=== PATIENT | female | born 1980 | race Caucasian/White ===

== ENCOUNTER → 2019-08-22 14:48 | Outpatient (CLI) | payer MEDICAID, SELFPAY ==
[2019-08-22 17:36] LABS: T4 Free Direct 1.18 ng/dL (0.76-1.46); Thyroid Stim Hormone (TSH) 0.21 uIU/mL (0.358-3.74)
[2019-08-25 10:34] LABS: Thyroid Peroxidase AB 33 IU/mL (0-34)
== END ==
PROVIDERS: PCP Family Medicine; Visit Provider Family Medicine
DX: E03.9 Hypothyroidism, unspecified (principal)
CPT/HCPCS: 36415; 84439; 84443; 86376

== ENCOUNTER → 2020-11-26 12:53 | Outpatient (CLI) | payer MEDICAID, SELFPAY ==
[2017-08-15 17:55] VITALS: BMI 29.2
== END ==
PROVIDERS: PCP Family Medicine; Referring Provider Family Medicine; Visit Provider Family Medicine
DX: Z20.828 Contact with and (suspected) exposure to other viral communicable diseases (principal)
CPT/HCPCS: 87635; U0002

== ENCOUNTER 2021-08-05 08:37 | Outpatient (CLI) | payer MEDICAID, SELFPAY | END 2021-08-05 23:59 | disposition short-term general hospital (02) | LOC: LABSPEC 08-06 08:41 | PROVIDERS: PCP Family Medicine; Visit Provider Family Medicine | DX: Z11.52 Encounter for screening for COVID-19 (principal) | CPT/HCPCS: 87635; U0003; U0005 ==

== ENCOUNTER → 2024-11-14 | Outpatient (CLI) | payer MEDICAID, SELFPAY ==
[2024-11-14 17:57] LABS: Absolute Lymphocyte Count 1.72 X10^3/uL (0.83-4.51); Absolute Neutrophil Count 2.6 X10^3/uL (2.0-7.7); Basophil# 0.03 X10^3/uL; Basophil% 0.6 % (0-1); Eosinophil# 0.16 X10^3/uL; Eosinophils% 3.3 % (0-5); Hemoglobin 12.8 g/dL (12.0-15.0); Lymphocyte # 1.72 X10^3/ul (0.83-4.51); Lymphocyte % 35.2 % (19-41); Mean Corp Hgb Conc 33.7 g/dL (32-36); Mean Corpuscular Hgb 28.9 pg (27.0-32.0); Mean Corpuscular Volume 85.8 fL (81-99); Mean Platelet Vol. 11.1 fl (6.2-12.0); Monocyte# 0.38 X10^3/uL; Monocyte% 7.8 % (0-10); NRBC Flagged by Analyzer 0 % (0-5); Neutrophil # 2.59 X10^3/uL (2.7-7.7); Neutrophil % 52.9 % (47-70); Platelet Count 259 K/mm3 (150-450); RBC Distribution Width SD 37.8 fl (35.1-43.9); Red Blood Count 4.43 M/mm3 (4.2-5.4); White Blood Count 4.9 K/mm3 (4.4-11.0)
[2024-11-14 18:31] LABS: ALB/GLOB Ratio 1.5 RATIO (0.9-2.4); AST(SGOT) 30 U/L (<=31); Alanine Aminotransfer ALT/SGPT 26 U/L (<=34); Albumin, Serum 4.5 g/dL (3.5-5.0); Alkaline Phosphatase 96 U/L (35-104); Anion Gap 13 (5-15); BUN 13 mg/dL (4-19); BUN/Creat Ratio 14.9 RATIO (10-20); Carbon Dioxide 24.8 mmol/L (21.0-32.0); Chloride 103 mmol/L (98-108); Creatinine, Serum 0.89 mg/dL (0.70-1.20); EST Glomerular Filtration Rate 82 (>60); Glucose 110 mg/dL (70-99); Potassium 3.7 mmol/L (3.3-5.1); Protein, Total 7.4 g/dL (5.9-8.4); Sodium Level 141 mmol/L (133-145); Total Bilirubin 0.27 mg/dL (0.00-1.30)
[2024-11-16 11:08] LABS: QNTFERON TB Mitogen Value > 10.00 IU/mL (.); QNTFERON TB Nil Value 0.05 IU/mL (.); QNTIFERON TB Positive Criteria Negative (Negative)
== END | disposition home or self-care (01) ==
LOC: BFHLAB 16:04
PROVIDERS: PCP Family Medicine; Visit Provider Family Medicine
DX: R00.0 Tachycardia, unspecified (principal); Z51.81 Encounter for therapeutic drug level monitoring; Z79.899 Other long term (current) drug therapy
CPT/HCPCS: 36415; 80053; 84443; 85025; 86480

== ENCOUNTER → 2024-12-04 | Outpatient (CLI) | payer MEDICAID, SELFPAY ==
--- NOTE | 2024-12-04 14:33 | BI_ITS ---
EXAM: BREAST LIMITED UNILATERAL; DIAG MAMM W/CAD, BILAT; BILAT BRST [place] STAND ALONE N/A; 12/04/2024 CLINICAL HISTORY: 43-year-old female presents with palpable concern in the left breast. Family history of breast cancer in paternal aunt. TECHNIQUE: Bilateral Diagnostic digital breast tomosynthesis with 2D and 3D images. Computer aided detection. Also, left breast ultrasound was performed. COMPARISON: Prior exam(s) dated 04/20/2022, 11/01/2016, 04/20/2016. FINDINGS: MAMMOGRAM: TISSUE DENSITY: The breast tissue is extremely dense which lowers the sensitivity of mammography. The mammogram demonstrates that the patient has dense breasts. Supplemental screening with whole breast ultrasound or MRI may be considered for further evaluation. Right breast: No significant masses, calcifications or other abnormalities are identified. Left breast: There is a triangle skin marker indicating the area of palpable concern in the lower inner left breast. Underlying the skin marker is a high density irregular mass with associated calcifications. The abnormal calcifications and mass involve the entire medial left breast, as well as extending centrally. There is an additional separate smaller group of suspicious fine pleomorphic calcifications in the upper outer left breast at posterior depth, measuring 2.0 x 0.6 x 2.1 cm (AP by TR by CC). ULTRASOUND: Ultrasound performed of the area of palpable concern in the left breast demonstrates an irregular hypoechoic mass with calcifications and flow peripherally extending from 9:00 - 11:00, 5 cm from the nipple measuring 5.5 x 3.5 x 2.0 cm. There is another irregular hypoechoic mass at 9 o'clock 1 cm from the nipple measuring 1.3 x 1.2 x 0.9 cm. This might represents a satellite lesion. There is a smaller irregular hypoechoic mass with calcifications at 1 o'clock, 5 cm from the nipple measuring 1.1 x 0.9 x 0.8 cm. There is a cyst at 1 o'clock 4 cm from the nipple measuring 0.7 x 0.6 x 0.3 cm. There are 2 prominent left axillary lymph nodes with diffuse cortical thickening, the largest measures 2.3 x 1.3 x 0.7 cm with cortical thickness of 0.4 cm. The other abnormal left axillary lymph node measures 1.5 x 0.6 x 0.7 cm. BI/Bilat Brst [place] Stand Alone IMPRESSION: 1. Suspicious irregular left breast mass with calcifications at 9 o'clock-11 o 'clock, 5 cm from the nipple. Recommend tissue sampling with ultrasound-guided core needle biopsy. 2. Suspicious left breast mass at 1 o'clock 5 cm from the nipple. Recommend t issue sampling with ultrasound guided core needle biopsy. 3. Suspicious left breast mass at 9 o'clock 1 cm from the nipple. 4. Suspicious left breast calcifications in the upper-outer left breast at pos terior depth. Recommend tissue sampling with stereotactic guided core needle biopsy. 5. Abnormal left axillary lymph nodes. Recommend tissue sampling of the large r lymph node with ultrasound-guided core needle biopsy. OVERALL FINAL ASSESSMENT: BIRADS 5 HIGHLY SUGGESTIVE OF MALIGNANCY. RECOMMENDATION: Core needle biopsy is recommended. A letter with findings and recommendations will be mailed to the patient. Reading Location: [id number]
== END | disposition home or self-care (01) ==
PROVIDERS: PCP Family Medicine; Referring Provider Family Medicine; Visit Provider Family Medicine
DX: N63.22 Unspecified lump in the left breast, upper inner quadrant (principal)
CPT/HCPCS: 77062; 76642; 77066; G0279

== ENCOUNTER → 2024-12-10 | Outpatient (CLI) | payer MEDICAID, SELFPAY ==
--- NOTE | 2024-12-10 12:00 | BRBX_PTH ---
PATIENT: HOWARD HURD LOC: [facility] U#:[id number] AGE/SX: 43/F ROOM: RE12/10/[address]: Dr. Feliciano Castellon MD : 1980 BED: DIS: 12/10/2024 SPEC #: [id number] RECD: 12/10/24 12:37 STATUS: ISIDRA REQ #: [id number] PAM: 12/10/24 12:[address]: Feliciano Castellon DEPT: SURGICAL PATHOLOGY RECD BY: Roosevelt Vela ENTERED: 12/10/24 14:09 SP TYPE: BREAST BX OTHR DR: Dr. Austin Michael DO Tissues: A - Left breast, NOS B - Axillary lymph node, NOS Procedures: Immunohistochemical Stains Surgery Specimen Level IV IHC Stain ADDITIONAL HEADER OPERATION: Core needle biopsy of left breast mass and left axillary lymph node PRE-OP DIAGNOSIS: Left breast mass TISSUE SUBMITTED: A- Left breast mass 9-11 o'clock, 5cm from the nipple, B- Left axillary lymph node Ischemic Time: 1 minute Fixation Time: 7 hours MICROSCOPIC DIAGNOSIS A. 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 The p40 immunostain shows loss of the myoepithelial layers in the invasive tumor and is present in the areas of DCIS. ESTROGEN RECEPTOR (ER): Positive, strong immunoreactivity in 100% of tumor cells PROGESTERONE RECEPTOR (MI): Positive, strong immunoreactivity in 100% of tumor cells HER2/RYAN IHC: Positive, (Score 3+) KI67 IHC: 40% B. Left axilla, lymph node, biopsy: * Metastatic mammary carcinoma (See note) Note: The pancytokeratin stain is positive supporting the diagnosis. MICROSCOPIC DESCRIPTION Slides are reviewed. All controls show appropriate reactivity. Estrogen receptor (ER) and progesterone receptor (MI) are evaluated by manual quantitative immunohistochemistry on formalin-fixed (for >6 hours and <72 hours if possible), paraffin-embedded tissue, using clone [id number] ([place]) for ER, clone [id number] ([place]) for MI, and polymer detection system on a [place] auto-stainer. For both ER and MI, the percentage of positive tumor cell nuclei is determined; <1% is considered negative, and =1% positive. For both ER and MI, the overall intensity of staining in the tumor is categorized as weak, moderate, or strong. HER2 protein expression is evaluated by manual quantitative immunohistochemistry on formalin-fixed (for >6 hours and <72 hours if possible), paraffin-embedded tissue, using FDA approved clone [id number] (rabbit monoclonal, [place]) on a [place] autostainer, and scored according to ASCO/CAP criteria. Membrane staining of tumor cells is evaluated and graded as follows, as readily appreciated using a low power objective. 0 (negative): no staining, or membrane staining that is incomplete and faint/barely perceptible in <10% of invasive tumor cells; 1+ (negative): incomplete membrane staining that is faint/barely perceptible in >10% of invasive tumor cells; 2+ (equivocal): circumferential membrane staining that is incomplete, and/or weak/moderate in a homogeneous, contiguous population within >10% of invasive tumor cells or complete and circumferential membrane staining that is intense within <10% of invasive tumor cells; 3+ (positive): circumferential, complete, intense membrane staining observed in a homogeneous contiguous population within >10% of invasive tumor cells. If the specimen has been decalcified, exceeds cold-ischemic time, or is outside the recommended range for formalin fixation time, the results should be interpreted with caution. This assay has not been validated for decalcified specimens, cytology specimens, and specimens in which the cold ischemic time/fixation time is unknown. All matched controls reacted appropriately. These tests were developed and their performance characteristics determined by [facility]. They may not have been cleared or approved by the U.S. Food and Drug Administration. The FDA has determined that such clearance or approval is not necessary. The above immunohistochemical/dualISH markers are ordered and reviewed by the Pathologist. GROSS DESCRIPTION A. Received in formalin in a container labeled with the patient's name, date of , and L breast mass 9-11 o'clock 5 cm FN are 3 gutierrez-yellow, cylindrical core biopsies of fibrofatty tissue each measuring 1.5 x 0.2 cm. Submitted in toto in A1. Total formalin fixation time: Between 6 and 72 hours. B. Received in formalin in a container labeled with the patient's name, date of , and L axillary lymph node are multiple gutierrez-pink fragments of soft tissue measuring 1.0 x 1.0 x 0.2 cm in aggregate. Submitted in toto in B1. Total formalin fixation time: Between 6 and 72 hours. [facility] 12-10-2024 CPT:[id number],[id number]
== END | disposition home or self-care (01) ==
LOC: LABSPEC 12:47
PROVIDERS: PCP Family Medicine; Referring Provider Surgery; Visit Provider Surgery
DX: C50.212 Malignant neoplasm of upper-inner quadrant of left female breast (principal); C77.3 Secondary and unspecified malignant neoplasm of axilla and upper limb lymph nodes; Z17.0 Estrogen receptor positive status [ER+]
CPT/HCPCS: 88305; 88341; 88342

== ENCOUNTER 2025-01-08 13:42 | Day surgery (SDC) | payer MEDICAID, SELFPAY ==
--- NOTE | 2025-01-02 17:22 | PAT.ANE_ITS ---
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 When Was Last Pacemaker Check QUESTION #4 FULL TEXT: You/Your Family Experience fever (hyperthermia) with Anesthesia Last Oral Intake Last Oral intake: Last Oral Intake NPO since Meds taken in AM with sips of water? 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 Female Yes 01/02/25 13:24 HX of Motion Sickness Yes 01/02/25 13:24 HX of N/V After Surgery No 01/02/25 13:24 Non-Smoker No 01/02/25 13:24 Duration of Surgery greater No 01/02/25 13:24 than 60 minutes Number of Risk Factors 2 01/02/25 13:24 PONV Score Moderate Risk 01/02/25 13:24 Height & Weight Height & Weight: Anesthesia: Height & Weight Height 5 ft 5 in 12/25/24 16:04 Respiratory Assessment Respiratory Assessment - quarry plant crusher operator: Respiratory Tract Infection Hx - 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 Has anyone observed you stop Yes 01/02/25 13:24 breathing during sleep? STOP Results Positive 01/02/25 13:24 QUESTION #5 FULL TEXT : Do you snore loudly (louder than talking or can be heard through closed doors)? 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 Specify any problems Hx of Preganancy in last 3 N/A 01/02/25 13:24 Months Nurse Filling Out Transfusion NBUCHER 01/02/25 13:24 & Questions: Date: 01/02/25 01/02/25 13:24 Time: 13:26 01/02/25 13:24 Patient unable to answer at this time (ie. 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: /Reproductive Hx- quarry plant crusher operator Hx Now No 01/02/25 13:24 Gestational Age (in weeks): EDC: Hx Hx Para Hx Section SAB No 01/02/25 13:24 PFSH Medical History (Updated 01/02/25 @ 13:34 by Kim Drake) Post-menopausal Wears glasses Cancer Depression Anemia Smoker History of edema Regional lymph node metastasis present Anxiety Breast cancer Home Medications ?Medication ?Instructions ?Recorded ?Last Taken ?Type citalopram 40 mg tablet 40 mg PO QDAY 12/09/24 Unkno wn History Allergy/AdvReac Type Severity Reaction Status Date / Time No Known Allergies Allergy Verified 01/02/25 13:23 Family History (Updated 12/25/24 @ 16:02 by Kristie Rao) Aunt Breast cancer Aunt Breast cancer Aunt Breast cancer Father Brain tumor Uncle Cancer Mother Heart disease Surgical History History of wisdom tooth extraction Social History (Updated 12/25/24 @ 16:03 by Kristie Rao) Smoking Status: Light Smoker (<10/day) Tobacco: How many years used: 20 alcohol intake: never Recommendation Anesthesia Recommendation Anesthesia recommendation: F/U recommended (I do not see the EKG.)
--- NOTE | 2025-01-03 08:32 | PAT.ANE_ITS ---
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 When Was Last Pacemaker Check QUESTION #4 FULL TEXT: You/Your Family Experience fever (hyperthermia) with Anesthesia Last Oral Intake Last Oral intake: Last Oral Intake NPO since Meds taken in AM with sips of water? 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 Has anyone observed you stop Yes 01/02/25 13:24 breathing during sleep? STOP Results Positive 01/02/25 13:24 QUESTION #5 FULL TEXT : Do you snore loudly (louder than talking or can be heard through closed doors)? 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 Specify any problems Hx of Preganancy in last 3 N/A 01/02/25 13:24 Months Nurse Filling Out Transfusion NBUCHER 01/02/25 13:24 & Questions: Date: 01/02/25 01/02/25 13:24 Time: 13:26 01/02/25 13:24 Patient unable to answer at this time (ie. 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 Hx Now No 01/02/25 13:24 Gestational Age (in weeks): EDC: Hx Hx Para Hx Section SAB No 01/02/25 13:24 PFSH Medical History (Updated 01/02/25 @ 13:34 by Kim Drake) Post-menopausal Wears glasses Cancer Depression Anemia Smoker History of edema Regional lymph node metastasis present Anxiety Breast cancer Home Medications ?Medication ?Instructions ?Recorded ?Last Taken ?Type citalopram 40 mg tablet 40 mg PO QDAY 12/09/24 Unkno wn History Allergy/AdvReac Type Severity Reaction Status Date / Time No Known Allergies Allergy Verified 01/02/25 13:23 Family History (Updated 12/25/24 @ 16:02 by Kristie Rao) Aunt Breast cancer Aunt Breast cancer Aunt Breast cancer Father Brain tumor Uncle Cancer Mother Heart disease Surgical History History of wisdom tooth extraction Social History (Updated 12/25/24 @ 16:03 by Kristie Rao) Smoking Status: Light Smoker (<10/day) Tobacco: How many years used: 20 alcohol intake: never Audit: Pertinent Findings Pertinent Findings EKG Perinent findings: 05/2014. Normal sinus rhythm 76 bpm. Poor R wave progression. Anterior RI, age undetermined. Cannot be excluded. Recommendation Anesthesia Recommendation Anesthesia recommendation: OPTIMIZED for anesthesia
[2025-01-08] VITALS (9 sets, daily range): BP systolic 116–157; BP diastolic 81–97; PULSE 83–100; RESP 16–20; TEMP 36.3–36.8; O2SAT 95–100; BMI 24.2
--- NOTE | 2025-01-08 13:52 | PCM.PRE.AN2 ---
ASA Classification* ASA Classification ASA Classification: 2 Assessment & Plan Anesthesia* Anesthesia Assessment Anesthesia Assessment: Discussed sedation and/or anesthesia options, risks, benefits, and alternatives with patient/parents/legal guardian/POA. Questions invited. The patient/parents/legal guardian/POA seems to understand and agrees to proceed with anesthesia plan. Reviewed the physical assessment, medical history, allergy history and patient home medications list prior to surgery/procedure/anesthetic and documented any changes. Performed airway and anesthesia risk assessments. Anesthesia Type Anesthesia Type: MAC Anesthesia Focused Assessment* Airway Assessment Mouth opens: >3 cm Mallampati Score: II Labs Anesthesia Preop lab: CBC WBC 6.1 K/mm3 (4.4-11.0) 12/25/24 17:03 12/25/24 RBC 4.24 M/mm3 (4.2-5.4) 12/25/24 17:03 12/25/24 Hgb 12.3 g/dL (12.0-15.0) 12/25/24 17:03 12/25/24 Hct 36.2 % (37-47) L 12/25/24 17:03 12/25/24 Plt Count 258 K/mm3 (150-450) 12/25/24 17:03 12/25/24 CHEMISTRY Potassium 4.0 mmol/L (3.3-5.1) 12/25/24 17:03 12/25/24 Sodium 141 mmol/L (133-145) 12/25/24 17:03 12/25/24 BUN 14 mg/dL (4-19) 12/25/24 17:03 12/25/24 Creatinine 0.84 mg/dL (0.70-1.20) 12/25/24 17:03 12/25/24 Glucose 95 mg/dL (70-99) 12/25/24 17:03 12/25/24 POC Glucose 89 mg/dL (70-110) 06/16/14 14:36 06/16/14 TSH 1.770 uIU/mL (0.300-4.200) 11/14/24 16:06 11/14/24 COAG PT 12.6 SECONDS (11.7-14.9) 08/15/17 18:00 08/15/17 Urine Test Negative Negative 12/25/24 17:15 12/25/24 Pre-Assessment Diagnosis/Proposed Procedure Planned Operative Procedure(s): (R) Insertion, Vascular Port right possible left Anesthesia History 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 When Was Last Pacemaker Check QUESTION #4 FULL TEXT: You/Your Family Experience fever (hyperthermia) with Anesthesia Last Oral Intake Last Oral intake: Last Oral Intake NPO since Meds taken in AM with sips of water? 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: PONV - kettle operator head Female Yes 01/02/25 13:24 HX of Motion Sickness Yes 01/02/25 13:24 HX of N/V After Surgery No 01/02/25 13:24 Non-Smoker No 01/02/25 13:24 Duration of Surgery greater No 01/02/25 13:24 than 60 minutes Number of Risk Factors 2 01/02/25 13:24 PONV Score Moderate Risk 01/02/25 13:24 Height & Weight Height & Weight: Anesthesia: Height & Weight Height 5 ft 5 in 12/25/24 16:04 Respiratory Assessment Respiratory Assessment - kettle operator head: Respiratory Tract Infection Hx - kettle operator head Hx Respiratory Tract Infection No 01/02/25 13:24 STOP Sleep Apnea STOP Sleep Apnea - kettle operator head: STOP Sleep Apnea - kettle operator head Hx Hypertension No 01/02/25 13:24 Hx Sleep Apnea No 01/02/25 13:24 CPAP BIPAP Do you snore loudly (louder Yes 01/02/25 13:24 than talking or can be heard Do you often feel tired/ Yes 01/02/25 13:24 fatigued/ sleepy during daytime? Has anyone observed you stop Yes 01/02/25 13:24 breathing during sleep? STOP Results Positive 01/02/25 13:24 QUESTION #5 FULL TEXT : Do you snore loudly (louder than talking or can be heard through closed doors)? 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 Specify any problems Hx of Preganancy in last 3 N/A 01/02/25 13:24 Months Nurse Filling Out Transfusion NBUCHER 01/02/25 13:24 & Questions: Date: 01/02/25 01/02/25 13:24 Time: 13:26 01/02/25 13:24 Patient unable to answer at this time (ie. 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: /Reproductive Hx- kettle operator head Hx Now No 01/02/25 13:24 Gestational Age (in weeks): EDC: Hx Hx Para Hx Section SAB No 01/02/25 13:24 Active Medications Active Medications: Current Medications Generic Name Dose Route Start Last Admin Trade Name Freq PRN Reason Stop Dose Admin Lactated Ringer's 1,000 mls @ 15 mls/hr 01/08/25 14:00 IV .Q48H MARITA PFSH Medical History Post-menopausal Wears glasses Cancer Depression Anemia Smoker History of edema Regional lymph node metastasis present Anxiety Breast cancer Home Medications ?Medication ?Instructions ?Recorded ?Last Taken ?Type citalopram 40 mg tablet 40 mg PO QDAY 12/09/24 Unknown History Allergy/AdvReac Type Severity Reaction Status Date / Time No Known Allergies Allergy Verified 01/02/25 13:23 Family History Aunt Breast cancer Aunt Breast cancer Aunt Breast cancer Father Brain tumor Uncle Cancer Mother Heart disease Surgical History History of wisdom tooth extraction Social History Smoking Status: Light Smoker (<10/day) Tobacco: How many years used: 20 alcohol intake: never Review of Systems (Anesthesia) ROS Narrative System reviewed and no additional complaints, except as documented.
[2025-01-08] MEDS: Lactated Ringers 1,000 ML 15 ML IV (14:06)
--- NOTE | 2025-01-08 14:20 | PCM.HP.STD ---
HPI - General HPI Narrative HOWARD HURD, is a 44 F who presents for port placement. The patient was found to have breast cancer with metastasis to the lymph nodes. She is here for port placement for neoadjuvant chemotherapy PFSH Medical History Post-menopausal Wears glasses Cancer Depression Anemia Smoker History of edema Regional lymph node metastasis present Anxiety Breast cancer Home Medications ?Medication ?Instructions ?Recorded ?Last Taken ?Type citalopram 40 mg tablet 40 mg PO QDAY 12/09/24 01/07/25 History Allergy/AdvReac Type Severity Reaction Status Date / Time No Known Allergies Allergy Verified 01/08/25 14:01 Family History Aunt Breast cancer Aunt Breast cancer Aunt Breast cancer Father Brain tumor Uncle Cancer Mother Heart disease Surgical History History of wisdom tooth extraction Social History Smoking Status: Light Smoker (<10/day) Tobacco: How many years used: 20 alcohol intake: never ROS Constitutional Constitutional: Denies anorexia, chills or fatigue Eyes Eyes: Denies blurry vision ENT HEENT: Denies abnormal hearing Cardiovascular Cardiovascular: Denies chest pain Respiratory/Chest Respiratory/Chest: Denies cough or dyspnea Gastrointestinal Gastrointestinal: Denies abdominal pain Genitourinary Genitourinary: Denies change in urinary stream Musculoskeletal Musculoskeletal: Denies abnormal gait Integumentary Integumentary: Denies jaundice or new lesions Neurologic Neurologic: Denies abnormal gait Psychiatric Psychiatric: Denies anxiety Vital Signs Vital Signs Vital Signs: 01/08/25 14:02 01/08/25 14:02 Temperature 98.2 F Temperature Source Temporal Pulse Rate 94 Respiratory Rate 18 Respiratory Pattern Normal Blood Pressure 157/97 H Blood Pressure Mean 117 Blood Pressure Source Monitor Blood Pressure Position Sitting Blood Pressure Location Right Arm Pulse Ox 100 Oxygen Delivery Method Room Air Weight Weight: 145 lb 8.081 oz Body Mass Index (BMI) 24.2 Physical Exam Const oriented x3 and no apparent distress Resp normal respiratory effort Cardio regular rate and regular rhythm GI soft to palpation and non-tender Extremity normal to inspection Assessment & Plan Assessment/Plan (1) Breast cancer: QUALIFIERS: Breast location: overlapping sites of breast Estrogen receptor status: positive Patient sex: female Laterality: left Qualified Code(s): C50.812 - Malignant neoplasm of overlapping sites of left female breast; Z17.0 - Estrogen receptor positive status [ER+] (2) Encounter for insertion of venous access port: PLAN: Plan I discussed right chest port placement with the patient in detail. I discussed the procedure as well as the risks including but not limited to bleeding, infection, pneumothorax, line infection or DVT. Patient understands all the risks and is willing to proceed. Feliciano Castellon MD Pager: [facility] [address] [place] [address], [address] [place] [address] Office:
[2025-01-08] MEDS: Cefazolin 2 GM in 0.9% Normal Saline (100mL Bag) 100 ML IV (14:38)
[2025-01-08] MEDS: Bupivacaine Mpf 0.5% 30 ML VIAL (14:45)
[2025-01-08] MEDS: Lidocaine 1% /Epi 1:100 (20ml) 20 ML Vial (14:45)
--- NOTE | 2025-01-08 15:06 | PCM.OPRPT ---
Operative Report (Standard) Operative Information Date of Procedure: 01/08/25 Pre-Operative Diagnosis: Need for vascular access port for chemotherapy Post-Operative Diagnosis: Same Surgery/Procedure Performed: Ultrasound and fluoroscopy guided right chest port placement with utilization of right IJ ambulance operations supervisor: No Type of Anesthesia: Local MAC RN Documented Start/Stop Times: Operation Date: 01/08/25 14:20 Case Time Into Pre-Op 01/08/25 13:56 Out of Pre-Op 01/08/25 14:25 Anesthesia Start 01/08/25 14:32 Into Room 01/08/25 14:32 Procedure Start 01/08/25 14:44 Procedure End 01/08/25 14:56 Anesthesia End 01/08/25 15:00 Out of Room 01/08/25 15:00 Into Recovery 01/08/25 15:03 Into Phase II Recovery Procedure Start Time: 14:44 Procedure Stop Time: 14:56 Select all DRAINS/GRAFTS/IMPLANTS that apply: Implanted device Implanted device details: 8 [place] PowerPort Estimated Blood Loss: 5 Specimen collected: No Description of surgery: After obtaining informed consent patient was brought back to the operating room MAC anesthesia was induced and the right chest and neck were prepped in normal sterile fashion. Ultrasound was used to evaluate both IJs and the right IJ was selected. Next, using a needle, the right IJ was accessed and a guidewire was passed on into the superior vena cava under fluoroscopy guidance. A small incision was made over the puncture site and the dilator introducer was placed over the guidewire. Next this was capped and the pocket was made for the port. 1% lidocaine with epinephrine was injected in the proposed port site. An incision was made with scalpel. Electrocautery was used to make a pocket under the skin and subcutaneous tissue. Hemostasis was obtained. Next, the catheter was tunneled up to the neck incision site and placed through the introducer. The peel-away introducer was removed and the position of the catheter was confirmed on fluoroscopy. Next, the catheter was trimmed and attached to the port with the locking device. Interrupted 2-0 Vicryl sutures were used to anchor the port to the chest wall and then the port was placed inside the pocket. The pocket was then flushed with saline and the port irrigated with saline. There was good blood return and the port flushed easily. Next, heparin was injected into the port. The skin was closed with subcutaneous interrupted 3-0 Vicryl sutures. A single 3-0 Vicryl sutures placed under the skin at the neck incision site. Steri-Strips were placed as well as op sites. Patient tolerated procedure well, was taken to PACU in stable condition. Chest x-ray will be obtained. Surgical Findings: None Complications Complications: No Admit VTE Documentation VTE Mechan Device Prophylaxis: SCD's
--- NOTE | 2025-01-08 15:06 | PCM.POST.ANE ---
Anesthesia: Postop Eval I Current Vital Signs Temperature: 97.7 F Pulse Rate: 96 Blood Pressure: 140/89 Respiratory Rate: 20 Pulse Ox: 97 Oxygen Delivery Method: Room Air Assessment Airway patent: Yes Spontaneous unlabored respirations: Yes Mental status: Awake nausea: No Vomiting: No Anesthesia Complication: No Fluid Hydration Crystalloid volume administer (ml): 300 Total IV fluid infused: 300 Progress Note Anesthesia document: Postop Eval 1 completed: Yes
--- NOTE | 2025-01-08 15:07 | DCINST_ITS ---
Discharge Instructions Procedure Gallbladder Diet Discharge Diet: Light diet - advance as tolerated Activity Discharge Activity: May Not Drive (for 2-3 days or while taking narcotic pain medications.) and - (Do not drive, work heavy equipment or sign legal documents for 24 hours.) May shower in (days): 1 Lifting Restrictions: 20 lbs for 2 weeks Additional Activity Instructions:: Pain medication may cause nausea. You should typically eat light foods as you take your pain medications. Pain medication may also cause constipation. If this is a problem for you, please discuss with your doctor. Dressing / Incision Call your doctor if your incision/area has: Continuous Slow Oozing, Sudden Increased Bleeding, Increased Pain/ Swelling, Increased Redness and Foul Smelling Discharge Call your doctor if you observe: Fever of 101 or Higher Suture Line Care: Avoid Pulling/Pushing and Avoid Pinching/Bending Remove Dressing in: 2 days Additional Dressing/Incision Instructions:: Leave operative bandaids on for 2 days. When you remove dressing, leave Steri-Strips on until your follow-up appointment, or until the Steri-Strips fall off on their own. Follow Up Care Please Follow Up With: Feliciano Castellon MD When: Please call to schedule 2 week follow up appointment. [phone] Test Results: Test results from this visit will be discussed in further detail at your follow- up appointment, if applicable. Discharge Plan Admission Attending Provider: Feliciano Castellon Primary Care Provider: Austin Michael Instructions Print Language: [place]an Discharge Orders/Prescriptions Prescriptions: No Action citalopram 40 mg tablet 40 mg PO QDAY Referrals / Follow Up: Austin Michael DO [Primary Care Provider] - Disposition Disposition (needs filled in before D/C Order can be placed): Home, Self Care
--- NOTE | 2025-01-08 15:20 | RAD_ITS ---
PROCEDURE: CHEST 1 VIEW 01/08/2025 REASON FOR EXAM: PORT PLACEMENT TECHNIQUE: Frontal view of the chest. COMPARISON: None FINDINGS: Hardware: A right-sided port a catheter has been placed with tip at the junction of the superior vena cava and right atrium. EKG electrodes are seen. Heart: The heart size is normal. Lungs: The lungs are clear. Bones: Degenerative changes are identified within the thoracic spine. Other: RAD/Chest 1 View IMPRESSION: The tip of the right port a catheter is at the junction of the superior vena ca va and right atrium. Reading Location: [facility]
--- NOTE | 2025-01-08 15:30 | POSTOPAN2_ITS ---
Anesthesia Postop Eval I Sum Postop Eval Completion status Anesthesia document: Postop Eval 1 completed: Yes Anesthesia Postop Eval I Summary Anesthesia Postop Eval I Summary: Anesthesia Postop Eval I: Assessment Summary Airway patent Yes 01/08/25 15:08 MAINTENANCE DEPARTMENT [email or web address] Spontaneous unlabored Yes 01/08/25 15:08 MAINTENANCE DEPARTMENT TECHNICIAN.[email or web address] respirations Mental status Awake 01/08/25 15:08 MAINTENANCE DEPARTMENT [email or web address] nausea No 01/08/25 15:08 MAINTENANCE DEPARTMENT TECHNICIAN.[email or web address] Vomiting No 01/08/25 15:08 MAINTENANCE DEPARTMENT TECHNICIAN.[email or web address] Anesthesia Postop Eval I: Fluid Summary Crystalloid volume administer 300 01/08/25 15:08 MAINTENANCE DEPARTMENT TECHNICIAN.JDEF (ml) Colloids volume administered ( ml) Blood Product volume administered (ml) Total IV fluid infused 300 01/08/25 15:08 MAINTENANCE DEPARTMENT TECHNICIAN.[email or web address] Anesthesia Postop Eval I: Summary Notes Anesthesia Complication No 01/08/25 15:08 MAINTENANCE DEPARTMENT TECHNICIAN.[email or web address] Anesthesia Complication Comment: Post-operative progress note Anesthesia: Postop Eval II Evaluation Mental status: Awake Pain Level: 0 nausea: No Vomiting: No
--- NOTE | 2025-01-08 15:30 | PCM.POSTANE2 ---
Anesthesia Postop Eval I Sum Postop Eval Completion status Anesthesia document: Postop Eval 1 completed: Yes Anesthesia Postop Eval I Summary Anesthesia Postop Eval I Summary: Anesthesia Postop Eval I: Assessment Summary Airway patent Yes 01/08/25 15:08 [email or web address] [email or web address] Spontaneous unlabored Yes 01/08/25 15:08 [email or web address] [email or web address] respirations Mental status Awake 01/08/25 15:08 STAFFING [email or web address] nausea No 01/08/25 15:08 STAFFING DIRECTOR.[email or web address] Vomiting No 01/08/25 15:08 STAFFING DIRECTOR.[email or web address] Anesthesia Postop Eval I: Fluid Summary Crystalloid volume administer 300 01/08/25 15:08 STAFFING DIRECTOR.[email or web address] (ml) Colloids volume administered ( ml) Blood Product volume administered (ml) Total IV fluid infused 300 01/08/25 15:08 STAFFING DIRECTOR.[email or web address] Anesthesia Postop Eval I: Summary Notes Anesthesia Complication No 01/08/25 15:08 STAFFING DIRECTOR.[email or web address] Anesthesia Complication Comment: Post-operative progress note Anesthesia: Postop Eval II Evaluation Mental status: Awake Pain Level: 0 nausea: No Vomiting: No
--- NOTE | 2025-01-08 15:53 | PCM.POST.ANE ---
Anesthesia: Postop Eval I Current Vital Signs Temperature: 97.3 F Pulse Rate: 100 Blood Pressure: 116/90 Respiratory Rate: 20 Pulse Ox: 98 Oxygen Delivery Method: Room Air Assessment Airway patent: Yes Spontaneous unlabored respirations: Yes Mental status: Awake nausea: No Vomiting: No Anesthesia Complication: No Fluid Hydration Crystalloid volume administer (ml): 300 Total IV fluid infused: 300 Progress Note Anesthesia document: Postop Eval 1 completed: Yes
== END 2025-01-08 16:13 | disposition home or self-care (01) ==
LOC: SDC 13:45 → AC 13:46
PROVIDERS: PCP Family Medicine; Referring Provider Surgery; Visit Provider Surgery
PROC: (CPT 36561; principal; 2025-01-08 14:05)
DX: Z45.2 Encounter for adjustment and management of vascular access device (principal); C77.9 Secondary and unspecified malignant neoplasm of lymph node, unspecified; C50.812 Malignant neoplasm of overlapping sites of left female breast; Z17.0 Estrogen receptor positive status [ER+]; Z79.899 Other long term (current) drug therapy; F17.290 Nicotine dependence, other tobacco product, uncomplicated
CPT/HCPCS: 36561; 00532; 71045; 77001; C1788

== ENCOUNTER → 2025-01-13 | Outpatient (CLI) | payer MEDICAID, SELFPAY ==
--- OUTSIDE RECORDS SUMMARY | 2025-01-13 06:44 | XMS RPT_ITS | CCD ---
Author Organization [facility] CliniSyme Care Team Providers Care Home Health Care Social Worker Name Role Phone David Michael DO Primary Care Provider FAITH CLEMENTS Attending Unavailable PARADISEDAVID IBRAHIM A Primary Care Unavailable PARADISE, DAVID A Primary Care Unavailable KATHY, FAITH Referring Unavailable PARADISE, DAVID A Primary Care Unavailable PARADISE, DAVID A Primary Care Unavailable FLORIAN VILLA Attending Unavailable Dr. David Michael DO Primary Care Provider Dr. David Michael DO Attending Provider Dr. David Michael DO Referring Provider Ravinder MOSELEY, Dr. Wiggins Attending Provider Ravinder MOSELEY, Dr. Wiggins Referring Provider Huong MOSELEY, Dr. Lares Attending Provider [phone] Huong MOSELEY, Dr. Lares Referring Provider Ravinder MOSELEY, Dr. Wiggins Other Provider David Michael Primary Care Unavailable Feliciano Castellon Attending Unavailable ParadiseDavid Referring Unavailable Paradise, David Primary Care Unavailable Arnaud Borja Attending Unavailable Feliciano Castellon Referring Unavailable Paradise, David Primary Care Unavailable Feliciano Castellon Attending Unavailable Feliciano Castellon Referring Unavailable Paradise, David Primary Care Unavailable Paradise, David Attending Unavailable Paradise, David Primary Care Unavailable Paradise, David Attending Unavailable Paradise, David Referring Unavailable Paradise, David Primary Care Unavailable HumbertoabrFeliciano aquino Attending Unavailable HumbertoabrFeliciano aquino Referring Unavailable Paradise, David Primary Care Unavailable Arnaud Borja Attending Unavailable Arnaud Borja Referring Unavailable Paradise, David Primary Care Unavailable David Michael Attending Unavailable Feliciano Castellon Attending Unavailable Feliciano Castellon Referring Unavailable Feliciano Castellon Consulting Unavailable David Michael Primary Care Unavailable David Michael Primary Care Unavailable Feliciano Castellon Attending Unavailable David Michael Referring Unavailable Medications Current Medications Medication Drug Class(es) Dates Sig (Normalized) Sig (Original) citalopram 40 mg oral tablet (11 sources) Serotonin Reuptake Inhibitor Start: 12-09-2024 take 1 tablet by mouth once daily Citalopram 40 mg tablet Active 40 mg PO daily December 09, 2024 12:00am Start: 02-15-2017 End: 12-09-2024 take 1 tablet by mouth once daily Citalopram (Celexa) 20 MG tablet Discontinued 20 mg PO DAILY August 15, 2017 1:00am December 09, 2024 2:02pm Comment on above: Take 1 tablet by surya th once daily. Completed/Discontinued Medications Medication Drug Class(es) Dates Sig (Normalized) Sig (Original) aspirin 81 mg chewable tablet (6 sources) Platelet Aggregation Inhibitor, Nonsteroidal Anti-inflammatory Drug Start: 08-15-2017 End: 08-17-2017 take 1 tablet by mouth once daily Aspirin 81 MG Tab.Chew Discontinued 81 mg PO DAILY@0800 August 15, 2017 1:00am August 17, 2017 12:58pm Start: 03-31-2017 End: 03-01-2022 take 1 tablet by mouth once daily aspirin, enteric coated (ASPIRIN LOW DOSE) 81 mg EC tablet Take 1 tablet by mouth once daily. 0 03/31/2017 03/01/2022 Discontinued Comment on above: Take 1 tablet by surya th once daily. ibuprofen 600 mg oral tablet (5 sources) Nonsteroidal Anti-inflammatory Drug Start: 8 End: 5 take 1 tablet by mouth every six hours as needed for pain Ibuprofen 600 MG tablet Discontinued 600 mg PO EVERY 6 HOURS as needed for Pain 60 August 17, 2017 1:00am December 09, 2024 2:02pm IRON, FERROUS SULFATE, ORAL (1 source) End: 2 take 27 mg by mouth once daily IRON, FERROUS SULFATE, ORAL Take 27 mg by mouth once daily. 0 03/01/2022 Discontinued Comment on above: Take 27 mg by mouth once daily. Esnfszch-Ee-Ctr-Fe- FA ( VITAMIN) tab (1 source) End: take 1 tablet by mouth once Ktgrzgbt-Ai-Bed-Fe-FA ( VITAMIN) tab Take 1 tablet by mouth. 0 03/01/2022 Discontinued Comment on above: Take 1 tablet by surya th. Problems Active Problems Problem Classification Problem Date Documented Da te Episodic/Chronic Anxiety disorders (2 sources) Anxiety; Translations: [Anxiety disorder, unspecified] 12-25-2024 Chronic Cancer of breast (9 sources) Malignant tumor of breast ; Translations: [Malignant neoplasm of unspecified site of unspecified female breast] Onset: 12-25-2024 12-25-2024 Chronic Cardiac dysrhythmias (1 source) Tachycardia, unspecified; Translations: [Tachycardia, unspecified] Onset: 11-21-2024 Episodic Nonmalignant breast conditions (2 sources) Fibrocystic change of left breast; Translations: [Diffuse cystic mastopathy of left breast] Onset: 04-20-2022 Chronic Nonmalignant breast conditions (15 sources) Pain of breast; Translations: [Mastodynia] Onset: 04-20-2022 Episodic Other aftercare (2 sources) Patient encounter status; Translations: [Encounter for adjustment and management of vascular access device] 01-08-2025 Episodic Other aftercare (2 sources) Encounter for adjustment and management of vascular access device; Translations: [Encounter for adjustment and management of vascular access device] Onset: 01-08-2025 Episodic Other aftercare (1 source) Encounter for therapeutic drug level monitoring; Translations: [Encounter for therapeutic drug level monitoring] Onset: 12-25-2024 Episodic Other aftercare (1 source) Other emt intermediate (current) drug therapy; Translations: [Other prison (current) drug therapy] Onset: 12-25-2024 Episodic Other gastrointestinal disorders (1 source) Malabsorption - iron; Translations: [Intestinal malabsorption, unspecified] Onset: 07-10-2017 07-10-2017 Chronic Other screening for suspected conditions (not mental disorders or infectious disease) (6 sources) Ultrasonography of breast abnormal; Translations: [Other abnormal and inconclusive findings on diagnostic imaging of breast] 12-09-2024 Episodic Other upper respiratory infections (2 sources) Acute maxillary sinusitis, unspecified; Translations: [Acute upper respiratory infection, unspecified] Onset: 08-14-2023 Episodic Residual codes; unclassified (2 sources) Estrogen receptor positive status [ER+]; Translations: [Estrogen receptor positive status [ER+]] Onset: 01-08-2025 Episodic Secondary malignancies (4 sources) Regional lymph node metastasis present ; Translations: [Secondary and unspecified malignant neoplasm of lymph node, unspecified] 12-25-2024 Chronic Secondary malignancies (2 sources) Secondary and unspecified malignant neoplasm of lymph node, unspecified; Translations: [Secondary and unspecified malignant neoplasm of lymph node, unspecified] Onset: 12-25-2024 Chronic Past or Other Problems Problem Classification Problem Date Documented Da te Episodic/Chronic Deficiency and other anemia (1 source) Iron deficiency anemia secondary to inadequate dietary iron intake; Translations: [Other iron deficiency anemias] Onset: 07-10-2017 07-10-2017 Episodic Other nutritional; endocrine; and metabolic disorders (1 source) H/O: thyroid disorder; Translations: [Personal history of other endocrine, nutritional and metabolic disease] Onset: 02-09-2017 02-09-2017 Episodic Screening and history of mental health and substance abuse codes (1 source) H/O: anxiety state; Translations: [Personal history of other mental and behavioral disorders] Onset: 02-09-2017 02-09-2017 Episodic Results Test Name Value Interpretation Reference Range Facility Chest 1 Viewon 01-08-2025 Chest 1 View [facility] Imaging Services [address] [place] [address] [id number] Chest 1 View MR#: [id number] Acct: [id number] Name: HOWARD HALL Rep #: [id number] : 1980 F 44 From: Larry shields MD PCP: Dr. David Michael, DO Status: [facility] Study: Chest 1 View Date of Exam: 01/08/25 Exam# [id number] Ordering Dr: Feliciano Castellon PROCEDURE: CHEST 1 VIEW 01/08/2025 REASON FOR EXAM: PORT PLACEMENT TECHNIQUE: Frontal view of the chest. COMPARISON: None FINDINGS: Hardware: A right-sided port a catheter has been placed with tip at the junction of the superior vena cava and right atrium. EKG electrodes are seen. Heart: The heart size is normal. Lungs: The lungs are clear. Bones: Degenerative changes are identified within the thoracic spine. Other: RAD/Chest 1 View IMPRESSION: The tip of the right port a catheter is at the junction of the superior vena cava and right atrium. Reading Location: [place] [address] CC: Dr. Feliciano Castellon MD; Dr. David Michael DO Cleaner And Presser: Signed Normal [facility] Discharge Instructionon 12-29 Discharge Instruction [facility] Medical Records Department [address] [place] [address] Instructions for Home/Discharge Instructions 01/08/25 1507 MR#: [id number] Acct: [id number] Name: HOWARD HALL Rep #: [id number] : 1980 44 From: Feliciano Castellon MD PCP: Dr. David Michael, Status:REG [facility] Discharge Instructions Procedure Gallbladder Diet Discharge Diet: Light diet - advance as tolerated Activity Discharge Activity: May Not Drive (for 2-3 days or while taking narcotic pain medications.) and - (Do not drive, work heavy equipment or sign legal documents for 24 hours.) May shower in (days): 1 Lifting Restrictions: 20 lbs for 2 weeks Additional Activity Instructions:: Pain medication may cause nausea. You should typically eat light foods as you take your pain medications. Pain medication may also cause constipation. If this is a problem for you, please discuss with your doctor. Dressing / Incision Call your doctor if your incision/area has: Continuous Slow Oozing, Sudden Increased Bleeding, Increased Pain/ Swelling, Increased Redness and Foul Smelling Discharge Call your doctor if you observe: Fever of 101 or Higher Suture Line Care: Avoid Pulling/Pushing and Avoid Pinching/Bending Remove Dressing in: 2 days Additional Dressing/Incision Instructions:: Leave operative bandaids on for 2 days. When you remove dressing, leave Steri-Strips on until your follow-up appointment, or until the Steri-Strips fall off on their own. Follow Up Care Please Follow Up With: Feliciano Castellon MD When: Please call to schedule 2 week follow up appointment. [phone] Test Results: Test results from this visit will be discussed in further detail at your follow-up appointment, if applicable. Discharge Plan Admission Attending Provider: Feliciano Castellon Primary Care Provider: David Michael Instructions Print Language: Bangladeshi Discharge Orders/Prescriptions Prescriptions: No Action citalopram 40 mg tablet 40 mg PO QDAY Referrals / Follow Up: David Michael DO [Primary Care Provider] - Disposition Disposition (needs filled in before D/C Order can be placed): Home, Self Care 01/08/25 1510 Feliciano Castellon MD CC: Dr. David Michael DO Signed Normal [facility] H AND P Exam - Surgicalon H&P Exam - Surgical [facility] Medical Records Department [address] [place] [address] H P Exam - Surgical 01/08/25 1420 MR#: [id number] Acct: [id number] Name: HOWARD HALL Rep #: [id number] : 1980 44 From: Feliciano Castellon MD PCP: Dr. David Michael DO Status:[facility] Location: [place] [address] HPI - General HPI Narrative HOWARD HALL, is a 44 F who presents for port placement. The patient was found to have breast cancer with metastasis to the lymph nodes. She is here for port placement for neoadjuvant chemotherapy PFSH Medical History Post-menopausal Wears glasses Cancer Depression Anemia Smoker History of edema Regional lymph node metastasis present Anxiety Breast cancer Home Medications ???Medication ???Instructions ???Recorded ???Last Taken ???Type citalopram 40 mg tablet 40 mg PO QDAY 12/09/24 01/07/25 Hi story Allergy/AdvReac Type Severity Reaction Status Date / Time No Known Allergies Allergy Verified 01/08/25 14:01 Family History Aunt Breast cancer Aunt Breast cancer Aunt Breast cancer Father Brain tumor Uncle Cancer Mother Heart disease Surgical History History of wisdom tooth extraction Social History Smoking Status: Light Smoker (<10/day) Tobacco: How many years used: 20 alcohol intake: never ROS Constitutional Constitutional: Denies anorexia, chills or fatigue Eyes Eyes: Denies blurry vision ENT HEENT: Denies abnormal hearing Cardiovascular Cardiovascular: Denies chest pain Respiratory/Chest Respiratory/Chest: Denies cough or dyspnea Gastrointestinal Gastrointestinal: Denies abdominal pain Genitourinary Genitourinary: Denies change in urinary stream Musculoskeletal Musculoskeletal: Denies abnormal gait Integumentary Integumentary: Denies jaundice or new lesions Neurologic Neurologic: Denies abnormal gait Psychiatric Psychiatric: Denies anxiety Vital Signs Vital Signs Vital Signs: 01/08/25 14:02 01/08/25 14:02 Temperature 98.2 F Temperature Source Temporal Pulse Rate 94 Respiratory Rate 18 Respiratory Pattern Normal Blood Pressure 157/97 H Blood Pressure Mean 117 Blood Pressure Source Monitor Blood Pressure Position Sitting Blood Pressure Location Right Arm Pulse Ox 100 Oxygen Delivery Method Room Air Weight Weight: 145 lb 8.081 oz Body Mass Index (BMI) 24.2 Physical Exam Const oriented x3 and no apparent distress Resp normal respiratory effort Cardio regular rate and regular rhythm GI soft to palpation and non-tender Extremity normal to inspection Assessment Plan Assessment/Plan (1) Breast cancer: QUALIFIERS: Breast location: overlapping sites of breast Estrogen receptor status: positive Patient sex: female Laterality: left Qualified Code(s): C50.812 - Malignant neoplasm of overlapping sites of left female breast; Z17.0 - Estrogen receptor positive status [ER+] (2) Encounter for insertion of venous access port: PLAN: Plan I discussed right chest port placement with the patient in detail. I discussed the procedure as well as the risks including but not limited to bleeding, infection, pneumothorax, line infection or DVT. Patient understands all the risks and is willing to proceed. Feliciano Castellon MD Pager: [facility] [address] [place] [address], [address] [place] [address] Office: 01/08/25 [facility] Cosigner Signature (if applicable): CC: Dr. Feliciano Castellon MD; Dr. David Michael, DO Signed [facility] MR/POSTOP.YAHIR 01-08-2025 MR/POSTOP.[facility] Medical Records Department [address] [facility] [place] [place] [address] Anesthesia Postop Eval I 01/08/25 1553 MR#: [id number] Acct: [id number] Name: HOWARD HALL Rep #: [id number] : 1980 44 From: Rebecca Mathews CRNA PCP: Dr. David Michael, DO Status:REG [facility] Y Race: C Location: [place] [address] Anesthesia: Postop Eval I Current Vital Signs Temperature: 97.3 F Pulse Rate: 100 Blood Pressure: 116/90 Respiratory Rate: 20 Pulse Ox: 98 Oxygen Delivery Method: Room Air Assessment Airway patent: Yes Spontaneous unlabored respirations: Yes Mental status: Awake nausea: No Vomiting: No Anesthesia Complication: No Fluid Hydration Crystalloid volume administer (ml): 300 Total IV fluid infused: 300 Progress Note Anesthesia document: Postop Eval 1 completed: Yes 01/08/25 1554 Date Rebecca Mathews CRNA Cosigner Signature: Date CC: Signed [facility] MR/POSTOP.[facility] Medical Records Department [address] [facility] [place] [address] Anesthesia Postop Eval I 01/08/25 1506 MR#: [id number] Acct: [id number] Name: HOWARD HALL Rep #: [id number] : 1980 44 From: Rebecca Mathews CRNA PCP: Dr. David Michael, DO Status:REG [facility] Y Race: C Location: [place] [address] Anesthesia: Postop Eval I Current Vital Signs Temperature: 97.7 F Pulse Rate: 96 Blood Pressure: 140/89 Respiratory Rate: 20 Pulse Ox: 97 Oxygen Delivery Method: Room Air Assessment Airway patent: Yes Spontaneous unlabored respirations: Yes Mental status: Awake nausea: No Vomiting: No Anesthesia Complication: No Fluid Hydration Crystalloid volume administer (ml): 300 Total IV fluid infused: 300 Progress Note Anesthesia document: Postop Eval 1 completed: Yes 01/08/25 1508 Date Rebecca DeForeest POLISH MAKER Cosigner Signature: Date CC: Signed Normal [facility] MR/[id number] 01-08-2025 [facility] Medical Records Department [address] [place] [address] Anesthesia Postop Eval II 01/08/25 1530 MR#: [id number] Acct: [id number] Name: HOWARD HALL Falguni Rep #: [id number] : 1980 44 From: Clyde Starks MD PCP: Dr. David Michael, DO Status:REG [facility] Y Race: C Location: [place] [address] Anesthesia Postop Eval I Sum Postop Eval Completion status Anesthesia document: Postop Eval 1 completed: Yes Anesthesia Postop Eval I Summary Anesthesia Postop Eval I Summary: Anesthesia Postop Eval I: Assessment Summary Airway patent Yes 01/08/25 15:08 POLISH [email or web address] Spontaneous unlabored Yes 01/08/25 15:08 POLISH [email or web address].JDEF respirations Mental status Awake 01/08/25 15:08 POLISH [email or web address] nausea No 01/08/25 15:08 POLISH MAKER.JDEF Vomiting No 01/08/25 15:08 POLISH [email or web address].JDEF Anesthesia Postop Eval I: Fluid Summary Crystalloid volume administer 300 01/08/25 15:08 POLISH [email or web address].JDEF (ml) Colloids volume administered ( ml) Blood Product volume administered (ml) Total IV fluid infused 300 01/08/25 15:08 POLISH [email or web address].JDEF Anesthesia Postop Eval I: Summary Notes Anesthesia Complication No 01/08/25 15:08 POLISH [email or web address].JDEF Anesthesia Complication Comment: Post-operative progress note Anesthesia: Postop Eval II Evaluation Mental status: Awake Pain Level: 0 nausea: No Vomiting: No 01/08/25 1530 Date Clyde Stacy Signature: Date CC: Signed Normal [facility] Operative Reporton 5 Operative Report [facility] Medical Records Department [address] [place] [address] Operative Report 01/08/25 1506 MR#: [id number] Acct: [id number] Name: HOWARD HALL Falguni Rep #: [id number] : 1980 44 From: Feliciano Castellon MD PCP: Dr. David Michael, DO Status:[facility] Location: [place] [address] Operative Report (Standard) Operative Information Date of Procedure: 01/08/25 Pre-Operative Diagnosis: Need for vascular access port for chemotherapy Post-Operative Diagnosis: Same Surgery/Procedure Performed: Ultrasound and fluoroscopy guided right chest port placement with utilization of right IJ director of workforce development: No Type of Anesthesia: Local MAC RN Documented Start/Stop Times: Operation Date: 01/08/25 14:20 Case Time Into Pre-Op 01/08/25 13:56 Out of Pre-Op 01/08/25 14:25 Anesthesia Start 01/08/25 14:32 Into Room 01/08/25 14:32 Procedure Start 01/08/25 14:44 Procedure End 01/08/25 14:56 Anesthesia End 01/08/25 15:00 Out of Room 01/08/25 15:00 Into Recovery 01/08/25 15:03 Into Phase II Recovery Procedure Start Time: 14:44 Procedure Stop Time: 14:56 Select all DRAINS/GRAFTS/IMPLANTS that apply: Implanted device Implanted device details: 8 Syriac PowerPort Estimated Blood Loss: 5 Specimen collected: No Description of surgery: After obtaining informed consent patient was brought back to the operating room MAC anesthesia was induced and the right chest and neck were prepped in normal sterile fashion. Ultrasound was used to evaluate both IJs and the right IJ was selected. Next, using a needle, the right IJ was accessed and a guidewire was passed on into the superior vena cava under fluoroscopy guidance. A small incision was made over the puncture site and the dilator introducer was placed over the guidewire. Next this was capped and the pocket was made for the port. 1% lidocaine with epinephrine was injected in the proposed port site. An incision was made with scalpel. Electrocautery was used to make a pocket under the skin and subcutaneous tissue. Hemostasis was obtained. Next, the catheter was tunneled up to the neck incision site and placed through the introducer. The peel-away introducer was removed and the position of the catheter was confirmed on fluoroscopy. Next, the catheter was trimmed and attached to the port with the locking device. Interrupted 2-0 Vicryl sutures were used to anchor the port to the chest wall and then the port was placed inside the pocket. The pocket was then flushed with saline and the port irrigated with saline. There was good blood return and the port flushed easily. Next, heparin was injected into the port. The skin was closed with subcutaneous interrupted 3-0 Vicryl sutures. A single 3-0 Vicryl sutures placed under the skin at the neck incision site. Steri-Strips were placed as well as op sites. Patient tolerated procedure well, was taken to PACU in stable condition. Chest x-ray will be obtained. Surgical Findings: None Complications Complications: No Admit VTE Documentation VTE Mechan Device Prophylaxis: SCD's 01/08/25 1507 Cosigner Signature (if applicable): CC: Dr. Feliciano Castellon MD; Dr. David Michael DO Signed Normal [facility] MR/PAT.Elsa 01-03-2025 MR/PAT.[facility] Medical Records Department [address] [place] [address] PAT - Anesthesia 01/03/25 0832 MR#: [id number] Acct: [id number] Name: HOWARD HALL Rep #: [id number] : 1980 44 From: Clyde Starks MD PCP: Dr. 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 When Was Last Pacemaker Check QUESTION #4 FULL TEXT: You/Your Family Experience fever (hyperthermia) with Anesthesia Last Oral Intake Last Oral intake: Last Oral Intake NPO since Meds taken in AM with sips of water? 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: PONV - snack bar cashier Female Yes 01/02/25 13:24 HX of Motion Sickness Yes 01/02/25 13:24 HX of N/V After Surgery No 01/02/25 13:24 Non-Smoker No 01/02/25 13:24 Duration of Surgery greater No 01/02/25 13:24 than 60 minutes Number of Risk Factors 2 01/02/25 13:24 PONV Score Moderate Risk 01/02/25 13:24 Height Weight Height Weight: Anesthesia: Height Weight Height 5 ft 5 in 12/25/24 16:04 Respiratory Assessment Respiratory Assessment - snack bar cashier: Respiratory Tract Infection Hx - snack bar cashier Hx Respiratory Tract Infection No 01/02/25 13:24 STOP Sleep Apnea STOP Sleep Apnea - snack bar cashier: STOP Sleep Apnea - snack bar cashier Hx Hypertension No 01/02/25 13:24 Hx Sleep Apnea No 01/02/25 13:24 CPAP BIPAP Do you snore loudly (louder Yes 01/02/25 13:24 than talking or can be heard Do you often feel tired/ Yes 01/02/25 13:24 fatigued/ sleepy during daytime? Has anyone observed you stop Yes 01/02/25 13:24 breathing during sleep? STOP Results Positive 01/02/25 13:24 QUESTION #5 FULL TEXT : Do you snore loudly (louder than talking or can be heard through closed doors)? 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 Specify any problems Hx of Preganancy in last 3 N/A 01/02/25 13:24 Months Nurse Filling Out Transfusion NBUCHER 01/02/25 13:24 Questions: Date: 01/02/25 01/02/25 13:24 Time: 13:26 01/02/25 13:24 Patient unable to answer at this time (ie. 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 History - snack bar cashier: /Reproductive Hx- snack bar cashier Hx Now No 01/02/25 13:24 Gestational Age (in weeks): EDC: Hx Hx Para Hx Section SAB No 01/02/25 13:24 PFSH Medical History (Updated 01/02/25 @ 13:34 by Kim Drake) Post-menopausal Wears glasses Cancer Depression Anemia Smoker History of edema Regional lymph node metastasis present Anxiety Breast cancer Home Medications ???Medication ???Instructions ???Recorded ???Last Taken ???Type citalopram 40 mg tablet 40 mg PO QDAY 12/09/24 Unknown His tory Allergy/AdvReac Type Severity Reaction Status Date / Time No Known Allergies Allergy Verified 01/02/25 13:23 Family History (Updated 12/25/24 @ 16:02 by Kristie Rao) Aunt Breast cancer Aunt Breast cancer Aunt Breast cancer Father Brain tumor Uncle Cancer Mother Heart disease Surgical History History of wisdom tooth extraction Social History (Updated 12/25/24 @ 16:03 by Kristie Rao) Smoking Status: Light Smoker (<10/day) Tobacco: How many years used: 20 alcoh (more content not included)... Normal [facility] MR/PAT.[facility] 01-02-2025 MR/PAT.[facility] Medical Records Department [address] [place] [address] PAT - Anesthesia 01/02/25 1722 MR#: [id number] Acct: [id number] Name: HOWARD HALL Rep #: [id number] : 1980 44 From: Stuart Rashid MD PCP: Dr. 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 When Was Last Pacemaker Check QUESTION #4 FULL TEXT: You/Your Family Experience fever (hyperthermia) with Anesthesia Last Oral Intake Last Oral intake: Last Oral Intake NPO since Meds taken in AM with sips of water? 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: PONV - snack bar cashier Female Yes 01/02/25 13:24 HX of Motion Sickness Yes 01/02/25 13:24 HX of N/V After Surgery No 01/02/25 13:24 Non-Smoker No 01/02/25 13:24 Duration of Surgery greater No 01/02/25 13:24 than 60 minutes Number of Risk Factors 2 01/02/25 13:24 PONV Score Moderate Risk 01/02/25 13:24 Height Weight Height Weight: Anesthesia: Height Weight Height 5 ft 5 in 12/25/24 16:04 Respiratory Assessment Respiratory Assessment - snack bar cashier: Respiratory Tract Infection Hx - snack bar cashier Hx Respiratory Tract Infection No 01/02/25 13:24 STOP Sleep Apnea STOP Sleep Apnea - snack bar cashier: STOP Sleep Apnea - snack bar cashier Hx Hypertension No 01/02/25 13:24 Hx Sleep Apnea No 01/02/25 13:24 CPAP BIPAP Do you snore loudly (louder Yes 01/02/25 13:24 than talking or can be heard Do you often feel tired/ Yes 01/02/25 13:24 fatigued/ sleepy during daytime? Has anyone observed you stop Yes 01/02/25 13:24 breathing during sleep? STOP Results Positive 01/02/25 13:24 QUESTION #5 FULL TEXT : Do you snore loudly (louder than talking or can be heard through closed doors)? 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 Specify any problems Hx of Preganancy in last 3 N/A 01/02/25 13:24 Months Nurse Filling Out Transfusion NBUCHER 01/02/25 13:24 Questions: Date: 01/02/25 01/02/25 13:24 Time: 13:26 01/02/25 13:24 Patient unable to answer at this time (ie. 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 History - snack bar cashier: /Reproductive Hx- snack bar cashier Hx Now No 01/02/25 13:24 Gestational Age (in weeks): EDC: Hx Hx Para Hx Section SAB No 01/02/25 13:24 PFSH Medical History (Updated 01/02/25 @ 13:34 by Kim Drake) Post-menopausal Wears glasses Cancer Depression Anemia Smoker History of edema Regional lymph node metastasis present Anxiety Breast cancer Home Medications ???Medication ???Instructions ???Recorded ???Last Taken ???Type citalopram 40 mg tablet 40 mg PO QDAY 12/09/24 Unknown His tory Allergy/AdvReac Type Severity Reaction Status Date / Time No Known Allergies Allergy Verified 01/02/25 13:23 Family History (Updated 12/25/24 @ 16:02 by Kristie Rao) Aunt Breast cancer Aunt Breast cancer Aunt Breast cancer Father Brain tumor Uncle Cancer Mother Heart disease Surgical History History of wisdom tooth extraction Social History (Updated 12/25/24 @ 16:03 by Kristie Rao) Smoking Status: Light Smoker (<10/day) Tobacco: How many years used: 20 (more content not included)... Normal [facility] CA 15-3on 12-27-2024 CA 15-3 74.7 U/mL Abnormal 0.0-25.0 [facility] Comment on above: Result Comment: [employer] Electrochemiluminescence Immunoassay (ECLIA) Values obtained with different assay methods or kits cannot be used interchangeably. Results cannot be interpreted as absolute evidence of the presence or absence of malignant disease. Performed at: [place] [id number] [employer] Counselor: Mendez Parmar PhD, Phone: [phone] Performed By: #### L 3100.5040, L100.0100, L500.4050, L400.7600, L3100.5055, L3100.5030 ####[facility] [address] [place], [address] CA 27.29on 12-27-2024 CA 27.29 103.0 U/mL Abnormal 0.0-38.6 [facility] Comment on above: Result Comment: [facility] Back&aur Immunochemiluminometric Methodology (ICMA) Values obtained with different assay methods or kits cannot be used interchangeably. Results cannot be interpreted as absolute evidence of the presence or absence of malignant disease. Performed By: #### L 3100.5040, L100.0100, L500.4050, L400.7600, L3100.5055, L3100.5030 ####[facility] [address] [place], [address] Absolute lymphocyte countOrd ered By: Arnaud Borja on 12-25-2024 Lymphocytes Auto (Unsp spec) [#/Vol] 2.39 10*3/uL 0.83-4.51 [facility] Absolute neutrophil countOrd ered By: [facility] on 12-25-2024 Neutrophils (Bld) [#/Vol] 3.0 10*3/uL 2.0-7.7 [facility] Anion gap in Serum or Plasma Ordered By: Arnaud Borja on 12-25-2024 Anion gap [Moles/Vol] 11 mmol/L 5-15 [facility] Automated lymphocyte count a s percentage of total leukocytesOrdered By: Arnaud Borja on 12-25-2024 Lymphocytes/100 WBC Auto (Unsp spec) 39.3 % 19-41 [facility] BUN/creatinine ratioOrdered By: [facility] on 12-25-2024 Urea nitrogen/Creatinine [Mass ratio] 16.4 mg/mg 10-20 [facility] Basophil percentageOrdered B y: Arnaud Borja on 12-25-2024 Basophils/100 WBC (Bld) 0.7 % 0-1 [facility] Bilirubin, totalOrdered By: Arnaud Borja on 12-25-2024 Bilirubin [Mass/Vol] 0.28 mg/dL 0.00-1.30 [facility] CA 15-3Ordered By: Arnaud alvarado on 12-25-2024 CA 15-3 74.7 U/mL High 0.0-25.0 [facility] Comment on above: [employer] El ectrochemiluminescence Immunoassay(ECLIA)Values obtained with different assay methods or kits cannotbe used interchangeably. Results cannot be interpreted asabsolute evidence of the presence or absence of malignantdisease.Performed at: [facility], [place] [id number] Director: Mendez Parmar PhD, Phone: [phone] CA 27.29Ordered By: Arnaud Borja on 12-25-2024 CA 27.29 103.0 U/mL High 0.0-38.6 [facility] Comment on above: [employer] Immu nochemiluminometric Methodology (ICMA)Values obtained with different assay methods or kits cannotbe used interchangeably. Results cannot be interpreted asabsolute evidence of the presence or absence of malignantdisease. CBC W/Diff, Automatedon 11-29 Absolute Lymph 2.39 X10 3/uL Normal 0.83-4.51 [facility] Comment on above: Performed By: #### L 3100.5040, L100.0100, L500.4050, L400.7600, L3100.5055, L3100.5030 ####[facility] [address] [place], [address] Absolute Neut 3.0 X10 3/uL Normal 2.0-7.7 [facility] Comment on above: Performed By: #### L 3100.5040, L100.0100, L500.4050, L400.7600, L3100.5055, L3100.5030 ####[facility] [address] [place], [address] Basophils/100 WBC (Bld) 0.7 % Normal 0-1 [facility] Comment on above: Performed By: #### L 3100.5040, L100.0100, L500.4050, L400.7600, L3100.5055, L3100.5030 ####[facility] [address] [place], [address] Eosinophils/100 WBC (Bld) 3.5 % Normal 0-5 [facility] Comment on above: Performed By: #### L 3100.5040, L100.0100, L500.4050, L400.7600, L3100.5055, L3100.5030 ####[facility] [address] [place], [address] Erythrocyte distribution width (RBC) [Ratio] 12.4 % Normal 11.6-14.6 [facility] Comment on above: Performed By: #### L 3100.5040, L100.0100, L500.4050, L400.7600, L3100.5055, L3100.5030 ####[facility] [address] [place], [address] Hematocrit (Bld) [Volume fraction] 36.2 % Low 37-47 [facility] Comment on above: Performed By: #### L 3100.5040, L100.0100, L500.4050, L400.7600, L3100.5055, L3100.5030 ####[facility] [address] [place], [address] Hemoglobin (Bld) [Mass/Vol] 12.3 g/dL Normal 12.0-15.0 [facility] Comment on above: Performed By: #### L 3100.5040, L100.0100, L500.4050, L400.7600, L3100.5055, L3100.5030 ####[facility] [address] [place], [address] IG% 0.200 Normal 0.0-0.9 [facility] Comment on above: Result Comment: IG% - Immature Granulocytes (promyelocytes, myelocytes and metamyelocytes) > 1% indicates that a LEFT SHIFT is Present. Performed By: #### L 3100.5040, L100.0100, L500.4050, L400.7600, L3100.5055, L3100.5030 ####[facility] [address] [place], [address] Lymphocytes/100 WBC (Bld) 39.3 % Normal 19-41 [facility] Comment on above: Performed By: #### L 3100.5040, L100.0100, L500.4050, L400.7600, L3100.5055, L3100.5030 ####[facility] [address] [place], [address] MCH (RBC) [Entitic mass] 29.0 pg Normal 27.0-32.0 [facility] Comment on above: Performed By: #### L 3100.5040, L100.0100, L500.4050, L400.7600, L3100.5055, L3100.5030 ####[facility] [address] [place], [address] MCHC (RBC) [Mass/Vol] 34.0 g/dL Normal 32-36 [facility] Comment on above: Performed By: #### L 3100.5040, L100.0100, L500.4050, L400.7600, L3100.5055, L3100.5030 ####[facility] [address] [place], [address] MCV (RBC) [Entitic vol] 85.4 fL Normal 81-99 [facility] Comment on above: Performed By: #### L 3100.5040, L100.0100, L500.4050, L400.7600, L3100.5055, L3100.5030 ####[facility] [address] [place], [address] Monocytes/100 WBC (Bld) 7.9 % Normal 0-10 [facility] Comment on above: Performed By: #### L 3100.5040, L100.0100, L500.4050, L400.7600, L3100.5055, L3100.5030 ####[facility] [address] [place], [address] Neutrophils/100 WBC (Bld) 48.4 % Normal 47-70 [facility] Comment on above: Performed By: #### L 3100.5040, L100.0100, L500.4050, L400.7600, L3100.5055, L3100.5030 ####[facility] [address] [place], [address] Nucleated RBC (Bld) [#/Vol] 0 10*3/uL Normal 0-5 [facility] Comment on above: Performed By: #### L 3100.5040, L100.0100, L500.4050, L400.7600, L3100.5055, L3100.5030 ####[facility] [address] [place], [address] Platelet mean volume (Bld) [Entitic vol] 11.0 fL Normal 6.2-12.0 [facility] Comment on above: Performed By: #### L 3100.5040, L100.0100, L500.4050, L400.7600, L3100.5055, L3100.5030 ####[facility] [address] [place], [address] Platelets (Bld) [#/Vol] 258 10*3/uL Normal 150-450 [facility] Comment on above: Performed By: #### L 3100.5040, L100.0100, L500.4050, L400.7600, L3100.5055, L3100.5030 ####[facility] [address] [place], [address] RBC (Bld) [#/Vol] 4.24 10*6/uL Normal 4.2-5.4 [facility] Comment on above: Performed By: #### L 3100.5040, L100.0100, L500.4050, L400.7600, L3100.5055, L3100.5030 ####[facility] [address] [place], [address] RDW SD 38.7 fl Normal 35.1-43.9 [facility] Comment on above: Performed By: #### L 3100.5040, L100.0100, L500.4050, L400.7600, L3100.5055, L3100.5030 ####[facility] [address] [place], [address] WBC (Bld) [#/Vol] 6.1 10*3/uL Normal 4.4-11.0 [facility] Comment on above: Performed By: #### L 3100.5040, L100.0100, L500.4050, L400.7600, L3100.5055, L3100.5030 ####[facility] [address] [place], [address] Carbon dioxide, total [Moles /volume] in Central venous bloodOrdered By: Arnaud Borja on 12-25-2024 CO2 [Moles/Vol] 25.7 mmol/L 21.0-32.0 [facility] Chloride assayOrdered By: Jluis Borja on 12-25-2024 Chloride [Moles/Vol] 105 mmol/L 98-108 [facility] Comprehensive Metabolic Prof ilon 12-25-2024 Albumin [Mass/Vol] 4.6 g/dL Normal 3.5-5.0 [facility] Comment on above: Performed By: #### L 3100.5040, L100.0100, L500.4050, L400.7600, L3100.5055, L3100.5030 ####[facility] [address] [place], [address] Albumin/Globulin [Mass ratio] 1.5 {ratio} Normal 0.9-2.4 [facility] Comment on above: Performed By: #### L 3100.5040, L100.0100, L500.4050, L400.7600, L3100.5055, L3100.5030 ####[facility] [address] [place], [address] ALK PHOS 98 U/L Normal 35-104 [facility] Comment on above: Performed By: #### L 3100.5040, L100.0100, L500.4050, L400.7600, L3100.5055, L3100.5030 ####[facility] [address] [place], [address] ALT [Catalytic activity/Vol] 24 U/L Normal <=34 [facility] Comment on above: Performed By: #### L 3100.5040, L100.0100, L500.4050, L400.7600, L3100.5055, L3100.5030 ####[facility] [address] [place], [address] AST [Catalytic activity/Vol] 27 U/L Normal <=31 [facility] Comment on above: Performed By: #### L 3100.5040, L100.0100, L500.4050, L400.7600, L3100.5055, L3100.5030 ####[facility] [address] [place], [place], [id number] Bilirubin [Mass/Vol] 0.28 mg/dL Normal 0.00-1.30 [facility] Comment on above: Performed By: #### L 3100.5040, L100.0100, L500.4050, L400.7600, L3100.5055, L3100.5030 ####[facility] [address] [place], [address] BUN/CRE 16.4 RATIO Normal 10-20 [facility] Comment on above: Performed By: #### L 3100.5040, L100.0100, L500.4050, L400.7600, L3100.5055, L3100.5030 ####[facility] [address] [place], [address] Calcium [Mass/Vol] 9.7 mg/dL Normal 7.6-11.0 [facility] Comment on above: Performed By: #### L 3100.5040, L100.0100, L500.4050, L400.7600, L3100.5055, L3100.5030 ####[facility] [address] [place], [address] Chloride [Moles/Vol] 105 mmol/L Normal 98-108 [facility] Comment on above: Performed By: #### L 3100.5040, L100.0100, L500.4050, L400.7600, L3100.5055, L3100.5030 ####[facility] [address] [place], [address] CO2 [Moles/Vol] 25.7 mmol/L Normal 21.0-32.0 [facility] Comment on above: Performed By: #### L 3100.5040, L100.0100, L500.4050, L400.7600, L3100.5055, L3100.5030 ####[facility] [address] [place], [address] Creatinine [Mass/Vol] 0.84 mg/dL Normal 0.70-1.20 [facility] Comment on above: Performed By: #### L 3100.5040, L100.0100, L500.4050, L400.7600, L3100.5055, L3100.5030 ####[facility] [address] [place], [address] GAP 11 Normal 5-15 [facility] Comment on above: Performed By: #### L 3100.5040, L100.0100, L500.4050, L400.7600, L3100.5055, L3100.5030 ####[facility] [address] [place], [address] GFR/1.73 sq M.predicted among non-blacks MDRD (S/P/Bld) [Vol rate/Area] 88 mL/min/{1.73_m2} Normal >60 [facility] Comment on above: Result Comment: mL/m in/1.73m2 CKD-EPI Creatinine Equation (2020) Performed By: #### L 3100.5040, L100.0100, L500.4050, L400.7600, L3100.5055, L3100.5030 ####[facility] [address] [place], [address] Globulin (S) [Mass/Vol] 3.0 g/dL Normal 2.2-4.2 [facility] Comment on above: Performed By: #### L 3100.5040, L100.0100, L500.4050, L400.7600, L3100.5055, L3100.5030 ####[facility] [address] [place], [address] Glucose [Mass/Vol] 95 mg/dL Normal 70-99 [facility] Comment on above: Performed By: #### L 3100.5040, L100.0100, L500.4050, L400.7600, L3100.5055, L3100.5030 ####[facility] [address] [place], [address] Potassium [Moles/Vol] 4.0 mmol/L Normal 3.3-5.1 [facility] Comment on above: Performed By: #### L 3100.5040, L100.0100, L500.4050, L400.7600, L3100.5055, L3100.5030 ####[facility] [address] [place], [address] Sodium [Moles/Vol] 141 mmol/L Normal 133-145 [facility] Comment on above: Performed By: #### L 3100.5040, L100.0100, L500.4050, L400.7600, L3100.5055, L3100.5030 ####[facility] [address] [place], [place], [id number] T PROT 7.5 g/dL Normal 5.9-8.4 [facility] Comment on above: Performed By: #### L 3100.5040, L100.0100, L500.4050, L400.7600, L3100.5055, L3100.5030 ####[facility] [address] [place], [place], [id number] Urea nitrogen [Mass/Vol] 14 mg/dL Normal 4-19 [facility] Comment on above: Performed By: #### L 3100.5040, L100.0100, L500.4050, L400.7600, L3100.5055, L3100.5030 ####[facility] [address] [place], [place], [phone] Eosinophil percentageOrdered By: Arnaud Borja on 12-25-2024 Eosinophils/100 WBC (Bld) 3.5 % 0-5 [facility] Erythrocyte distribution wid th ratioOrdered By: Arnaud Borja on 12-25-2024 Erythrocyte distribution width (RBC) [Ratio] 12.4 % 11.6-14.6 [facility] Erythrocyte distribution wid th standard deviationOrdered By: [facility] Huong on 12-25-2024 Erythrocyte distribution width (RBC) [Ratio] 38.7 fl 35.1-43.9 [facility] FSH and LHon 12-25-2024 FSH 89.2 mIU/mL Normal [facility] Comment on above: Result Comment: FEMA LE: Follicular: 1.4 - 18.1 mIU/mL Midcycle: 3.4 - 33.4 mIU/mL Luteal: 1.5 - 9.1 mIU/mL Post Menopause: 23.0 - 116.3 mIU/mL MALE: 1.4 - 18.1 mIU/mL Performed By: #### L 3100.5040, L100.0100, L500.4050, L400.7600, L3100.5055, L3100.5030 ####[facility] [address] [place], [place], [phone] LH 60.9 mIU/mL Normal [facility] Comment on above: Result Comment: FEMA LE: Follicular: 1.9-12.5 mIU/mL Midcycle: 8.7-76.3 mIU/mL Luteal: 0.5-16.9 mIU/mL Post Menopause: 15.9-54.0 mIU/mL MALE: 20-70 Years: 1.5-9.3 mIU/mL >70 Years: 3.1-34.6 mIU/mL Performed By: #### L 3100.5040, L100.0100, L500.4050, L400.7600, L3100.5055, L3100.5030 ####[facility] [address] [place], [place], [phone] Glomerular filtration rate ( GFR) estimation/1.73 sq m using serum, plasma, or whole bOrdered By: Arnaud Borja on 12-25-2024 GFR/1.73 sq M.predicted among non-blacks MDRD (S/P/Bld) [Vol rate/Area] 88 mL/min/{1.73_m2} >60 [facility] Comment on above: mL/min/1.73m2 CKD-EP I Creatinine Equation (2020) Hematocrit Auto (Bld) [Volum e fraction]Ordered By: Arnaud Borja on 12-25-2024 Hematocrit (Bld) [Volume fraction] 36.2 % Low 37-47 [facility] Hemoglobin measurementOrdere d By: Arnadu Borja on 12-25-2024 Hemoglobin (Bld) [Mass/Vol] 12.3 g/dL 12.0-15.0 [facility] Immature granulocytes/100 WB C Auto (Bld)Ordered By: Arnaud Borja on 12-25-2024 Immature granulocytes/100 WBC (Bld) 0.200 % 0.0-0.9 [facility] Comment on above: IG% - Immature Granu locytes (promyelocytes, myelocytes and metamyelocytes) > 1% indicates that a LEFT SHIFT is Present. Laboratory - Chemistry and C hemistry - challengeOrdered By: Arnaud Borja on 12-25-2024 AST [Catalytic activity/Vol] 27 U/L <32 [facility] MCV (mean corpuscular volume ) determinationOrdered By: Arnaud Borja on 12-25-2024 MCV (RBC) [Entitic vol] 85.4 fL 81-99 [facility] Mean corpuscular hemoglobin (MCH) determinationOrdered By: Arnaud Borja on 12-25-2024 MCH (RBC) [Entitic mass] 29.0 pg 27.0-32.0 [facility] Mean corpuscular hemoglobin concentration (MCHC) determinationOrdered By: Arnaud Borja on 12-25-2024 MCHC (RBC) [Mass/Vol] 34.0 g/dL 32-36 [facility] Mean platelet volume determi nationOrdered By: Arnaud Borja on 12-25-2024 Platelet mean volume (Bld) [Entitic vol] 11.0 fL 6.2-12.0 [facility] Monocyte percentageOrdered B y: Arnaud Borja on 12-25-2024 Monocytes/100 WBC (Bld) 7.9 % 0-10 [facility] Neutrophil percentageOrdered By: Arnaud Borja on 12-25-2024 Neutrophils/100 WBC (Bld) 48.4 % 47-70 [facility] Nucleated red blood cell per centageOrdered By: Arnaud Borja on 12-25-2024 Nucleated RBC/100 WBC (Bld) [Ratio] 0 % 0-5 [facility] Oncology Visit Reporton 11-29 Oncology Visit Report [facility] [address] [place] [address] OFFICE VISIT Date of Service: 12/25/24 1555 MR#: [id number] Acct: [id number] Name: VICKEYHOWARD Rep #: [id number] : 1980 From: Arnaud Borja MD Age/Sex: 44/F Location: [facility] Status: Signed HPI Subjective Date of Service 05/28/25 Chief Complaint Breast cancer History of Present Illness 44-year-old female menopausal status to be determined (patient last menstrual period was about 1 year earlier and was experiencing some hot flashes) who presented with an enlarging painless mass in the left breast first noted August 2024. Has no first-degree relatives with breast cancer. She has a remote history of a biopsy from the contralateral right breast benign. December 04, 2024 diagnostic mammogram: FINDINGS: MAMMOGRAM: TISSUE DENSITY: The breast tissue is extremely dense which lowers the sensitivity of mammography. The mammogram demonstrates that the patient has dense breasts. Supplemental screening with whole breast ultrasound or MRI may be considered for further evaluation. Right breast: No significant masses, calcifications or other abnormalities are identified. Left breast: There is a triangle skin marker indicating the area of palpable concern in the lower inner left breast. Underlying the skin marker is a high density irregular mass with associated calcifications. The abnormal calcifications and mass involve the entire medial left breast, as well as extending centrally. There is an additional separate smaller group of suspicious fine pleomorphic calcifications in the upper outer left breast at posterior depth, measuring 2.0 x 0.6 x 2.1 cm (AP by TR by CC). ULTRASOUND: Ultrasound performed of the area of palpable concern in the left breast demonstrates an irregular hypoechoic mass with calcifications and flow peripherally extending from 9:00 - 11:00, 5 cm from the nipple measuring 5.5 x 3.5 x 2.0 cm. There is another irregular hypoechoic mass at 9 o'clock 1 cm from the nipple measuring 1.3 x 1.2 x 0.9 cm. This might represents a satellite lesion. There is a smaller irregular hypoechoic mass with calcifications at 1 o'clock, 5 cm from the nipple measuring 1.1 x 0.9 x 0.8 cm. There is a cyst at 1 o'clock 4 cm from the nipple measuring 0.7 x 0.6 x 0.3 cm. There are 2 prominent left axillary lymph nodes with diffuse cortical thickening, the largest measures 2.3 x 1.3 x 0.7 cm with cortical thickness of 0.4 cm. The other abnormal left axillary lymph node measures 1.5 x 0.6 x 0.7 cm. IMPRESSION: 1. Suspicious irregular left breast mass with calcifications at 9 o'clock-11 o'clock, 5 cm from the nipple. Recommend tissue sampling with ultrasound-guided core needle biopsy. 2. Suspicious left breast mass at 1 o'clock 5 cm from the nipple. Recommend tissue sampling with ultrasound guided core needle biopsy. 3. Suspicious left breast mass at 9 o'clock 1 cm from the nipple. 4. Suspicious left breast calcifications in the upper-outer left breast at posterior depth. Recommend tissue sampling with stereotactic guided core needle biopsy. 5. Abnormal left axillary lymph nodes. Recommend tissue sampling of the larger lymph node with ultrasound-guided core needle biopsy. OVERALL FINAL ASSESSMENT: BIRADS 5 HIGHLY SUGGESTIVE OF MALIGNANCY. December 10, 2024: A. 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 The p40 immunostain shows loss of the myoepithelial layers in the invasive tumor and is present in the areas of DCIS. ESTROGEN RECEPTOR (ER): Positive, strong immunoreactivity in 100% of tumor cells PROGESTERONE RECEPTOR (IN): Positive, strong immunoreactivity in 100% of tumor cells HER2/RYAN IHC: Positive, (Score 3+) KI67 IHC: 40% B. Left axilla, lymph node, biopsy: * Metastatic mammary carcinoma (See note) Note: The pancytokeratin stain is positive supporting the diagnosis. [facility] Medical History (Updated 12/25/24 @ 16:[address] Arnaud Borja MD) Regional lymph node metastasis present Anxiety Breast cancer Family History (Updated 12/25/24 @ 16:02 by Kristie Rao) Aunt Breast cancer Aunt Breast cancer Aunt Breast cancer Father Brain tumor Uncle Cancer Mother Heart disease Social History (Updated 12/25/24 @ 16:03 by Kristie Rao) Smoking Status: Light Smoker (<10/day) Tobacco: How many years used: 20 alcohol intake: never ROS Constitutional Constitutional: Reports systems reviewed and no addt'l complaints, except as documented; Denies fatigue, fever(s) or weight (more content not included)... Normal [facility] Platelet countOrdered By: Jluis Borja on 12-25-2024 Platelets (Bld) [#/Vol] 258 10*3/uL 150-450 [facility] Potassium measurement (mass/ volume)Ordered By: Arnaud Borja on 12-25-2024 Potassium (Unsp spec) [Mass/Vol] 4.0 mmol/L 3.3-5.1 [facility] ,Urineon 12-25-2024 Beta HCG ( test) Ql (U) Negative Normal [facility] Comment on above: Result Comment: [id number] Very dilute urine specimens, as indicated by a low specific gravity, may not contain patient portal representative levels of hCG. If is still suspected, a first morning urine specimen should be collected 48 hours later and tested. Performed By: #### L 3100.5040, L100.0100, L500.4050, L400.7600, L3100.5055, L3100.5030 #### [facility] [address] [place], [address] RBC Auto (Bld) [#/Vol]Ordere d By: Arnaud Borja on 12-25-2024 RBC (Bld) [#/Vol] 4.24 10*6/uL 4.2-5.4 [facility] Serum creatinine measurement (mass/volume)Ordered By: Arnaud Borja on 12-25-2024 Creatinine [Mass/Vol] 0.84 mg/dL 0.70-1.20 [facility] Serum globulin measurementOr dered By: Arnaud Borja on 12-25-2024 Globulin (S) [Mass/Vol] 3.0 g/dL 2.2-4.2 [facility] Serum glucose measurement (m ass/volume)Ordered By: Arnaud Borja on 12-25-2024 Glucose [Mass/Vol] 95 mg/dL 70-99 [facility] Serum or plasma alanine rainey otransferase (ALT) measurementOrdered By: Arnaud Borja on 12-25-2024 ALT [Catalytic activity/Vol] 24 U/L <35 [facility] Serum or plasma albumin ceasar urement (mass/volume)Ordered By: Arnaud Borja on 12-25-2024 Albumin [Mass/Vol] 4.6 g/dL 3.5-5.0 [facility] Serum or plasma albumin/glob ulin mass ratioOrdered By: Arnaud Borja on 12-25-2024 Albumin/Globulin [Mass ratio] 1.5 {ratio} 0.9-2.4 [facility] Serum or plasma alkaline dasia sphatase measurementOrdered By: Arnaud Borja on 12-25-2024 ALP [Catalytic activity/Vol] 98 U/L 35-104 [facility] Serum or plasma calcium ceasar urement (mass/volume)Ordered By: rAnaud Borja on 12-25-2024 Calcium [Mass/Vol] 9.7 mg/dL 7.6-11.0 [facility] Serum or plasma urea nitroge n measurement (mass/volume)Ordered By: Arnaud Borja on 12-25-2024 Urea nitrogen [Mass/Vol] 14 mg/dL 4-19 [facility] Sodium levelOrdered By: Meir Borja on 12-25-2024 Sodium [Moles/Vol] 141 mmol/L 133-145 [facility] Total proteinOrdered By: Charanjit Borja on 12-25-2024 Protein [Mass/Vol] 7.5 g/dL 5.9-8.4 [facility] Urine testOrdered By: Arnaud Borja on 12-25-2024 HCG ( test) Ql (U) Negative [facility] Comment on above: [id number] dilute ur ine specimens, as indicated by a low specificgravity, may not contain patient portal representative levels of hCG. If is still suspected, a first morning urinespecimen should be collected 48 hours later and tested. White blood cell (WBC) count Ordered By: Arnaud Borja on 12-25-2024 WBC (Bld) [#/Vol] 6.1 10*3/uL 4.4-11.0 [facility] Surgical pathology reportOrd ered By: Rain Bruce on 12-11-2024 Surgical pathology study [facility] Immunohistochemical Stainson 12-10-2024 Immunohistochemical Stains Patient Age/Sex Location Account Attending Physician HOWARD HALL 43/F [facility] [id number] Dr. Feliciano Castellon MD Specimen: [id number] Received: 12/10/24 Status: ISIDRA Neal Num: [id number] Spec Type: BREAST BX Subm Dr: Dr. Feliciano Castellon MD HEADER OPERATION: Core needle biopsy of left breast mass and left axillary lymph node PRE-OP DIAGNOSIS: Left breast mass TISSUE SUBMITTED: A- Left breast mass 9-11 o'clock, 5cm from the nipple, B- Left axillary lymph node Ischemic Time: 1 minute Fixation Time: 7 hours MICROSCOPIC DIAGNOSIS A. 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 The p40 immunostain shows loss of the myoepithelial layers in the invasive tumor and is present in the areas of DCIS. ESTROGEN RECEPTOR (ER): Positive, strong immunoreactivity in 100% of tumor cells PROGESTERONE RECEPTOR (IN): Positive, strong immunoreactivity in 100% of tumor cells HER2/RYAN IHC: Positive, (Score 3+) KI67 IHC: 40% B. Left axilla, lymph node, biopsy: * Metastatic mammary carcinoma (See note) Note: The pancytokeratin stain is positive supporting the diagnosis. MICROSCOPIC DESCRIPTION Slides are reviewed. All controls show appropriate reactivity. Estrogen receptor (ER) and progesterone receptor (IN) are evaluated by manual quantitative immunohistochemistry on formalin-fixed (for >6 hours and <72 hours if possible), paraffin-embedded tissue, using clone SP1 ([place]) for ER, clone IN 1E2 ([place]) for IN, and polymer detection system on a [place] auto-stainer. For both ER and IN, the percentage of positive tumor cell nuclei is determined; <1% is considered negative, and =1% positive. For both ER and IN, the overall intensity of staining in the tumor is categorized as weak, moderate, or strong. HER2 protein expression is evaluated by manual quantitative immunohistochemistry on formalin-fixed (for >6 hours and <72 hours if possible), paraffin-embedded tissue, using FDA approved clone [id number] (rabbit monoclonal, [place]) on a [place] autostainer, and scored according to ASCO/CAP criteria. Membrane staining of tumor cells is evaluated and graded as follows, as readily appreciated using a low power objective. 0 (negative): no staining, or Patient Age/Sex Location Account Attending Physician HOWARD HALL 43/F [facility] [id number] Dr. Feliciano Castellon MD membrane staining that is incomplete and faint/barely perceptible in <10% of invasive tumor cells; 1+ (negative): incomplete membrane staining that is faint/barely perceptible in >10% of invasive tumor cells; 2+ (equivocal): circumferential membrane staining that is incomplete, and/or weak/moderate in a homogeneous, contiguous population within >10% of invasive tumor cells or complete and circumferential membrane staining that is intense within <10% of invasive tumor cells; 3+ (positive): circumferential, complete, intense membrane staining observed in a homogeneous contiguous population within >10% of invasive tumor cells. If the specimen has been decalcified, exceeds cold-ischemic time, or is outside the recommended range for formalin fixation time, the results should be interpreted with caution. This assay has not been validated for decalcified specimens, cytology specimens, and specimens in which the cold ischemic time/fixation time is unknown. All matched controls reacted appropriately. These tests were developed and their performance characteristics determined by [facility]. They may not have been cleared or approved by the U.S. Food and Drug Administration. The FDA has determined that such clearance or approval is not necessary. The above immunohistochemical/dualIS H markers are ordered and reviewed by the Pathologist. GROSS DESCRIPTION A. Received in formalin in a container labeled with the patient's name, date of , and L breast mass 9-11 o'clock 5 cm FN are 3 gutierrez-yellow, cylindrical core biopsies of fibro (more content not included)... Normal [facility] Comment on above: Performed By: #### [facility] ####[facility] [id number] [place], [address] Surgery Visit Reporton 12-10 Surgery Visit Report [facility] [address] [place] [address] OFFICE VISIT Date of Service: 12/10/24 MR#: [id number] Acct: [id number] Name: HOWARD HALL Rep #: [id number] : 1980 Provider: Dr. Feliciano miles MD Age/Sex: 43/F Location: [facility] Status: Signed Intake Intake Visit Reasons: BREAST BIOPSY Chief Complaint: Breast BIOSPY Allergies No Known Allergies Allergy (Verified 12/10/24 12:07) Medications ???Medication ???Instructions ???Recorded ???Confirmed ???Type citalopram 40 mg tablet 40 mg PO QDAY 12/09/24 12/10/24 Hi story PFSH Medical History Abnormal ultrasound of breast Abnormal mammogram Left breast mass Family History Aunt Breast cancer Aunt Breast cancer Aunt Breast cancer Father Brain tumor Uncle Cancer Social History Smoking Status: Light Smoker (<10/day) HPI HPI HPI: Patient is a 43-year-old female here for breast biopsy. This was discussed with her yesterday. ROS General General: No weight change, appetite, fatigue, colon cancer, breast cancer or weakness HEENT HEENT: No difficulty swallowing, eye injury, eye surgery, swollen glands or hoarseness Endo Endocrine: No thyroid disease, diabetes mellitus, thyroid cancer, Hair loss, heat intolerance or cold intolerance Skin Skin: No rash or changing moles Breast Breast: Yes left breast lump, abnormal mammogram and abnormal US; No right breast lump, nipple discharge, breast pain or breast enlargement Musc Musculoskeletal: No back problems, arthritis, rheumatoid arthritis, gout or joint pain Cardio Cardiovascular: No murmur, pacemaker, heart disease, atrial fibrillation, high blood pressure, heart attack, heart stent, palpitations, shortness of breath with exertion or chest pain Psych Psychiatric: Yes depression; No anxiety or hearing voices Resp Respiratory: No shortness of breath, No sleep apnea, No cough, No COPD, No asthma, No emphysema and No wheezing Gastro Gastrointestinal: No abdominal pain, No nausea or vomiting, No diarrhea, No constipation, No blood in stool, No acid reflux, No hemorrhoids, No ulcers, No gallbladder problem and No black,tarry stools Uche Hematologic: No blood thinners, No blood disorders, No bleeding, No anemia and No blood clots Neuro Neurologic: No numbness, No tingling and No weakness Office Procedures Biopsy Provider Documentation The patient's left breast was prepped and draped in usual sterile fashion. The mass was localized in the medial portion of the breast. Local anesthetic was injected into the skin and underlying tissue. A small lynn was made in the skin and then the biopsy needle was placed into the mass under ultrasound guidance several times for biopsies and a clip was placed into the mass. Steri-Strip and bandage were placed over the incision and patient tolerated the procedure well. Next the left axilla was prepped and draped and ultrasound was used to localize the largest lymph node. Local anesthetic was injected and then a small lynn was made with a scalpel. A 14-gauge biopsy needle was placed into the lymph node several times and then a clip was placed into the lymph node. Steri-Strip and bandage were placed over the incision and patient tolerated the procedure well. Alert Kalani Yes Biopsy Breast Biopsy: 27594 US Guidance Lymphnode Biopsy: [id number] Lymphnode Procedure Time Out Time Out Informed consent given: Yes Consent signed: Yes Time out checklist: patient, procedure, site marked/identified, positioning of patient, supplies available, allergies confirmed and team agrees on procedure Time out staff in room: Yes Time out verified: Yes Time out date: 12/10/24 Time out time: 12:15 Assessment and Plan Assessment and Plan (1) Left breast mass: Status: Acute Qualifiers: Breast mass location: upper inner quadrant Qualified Code(s): N63.22 - Unspecified lump in the left breast, upper inner quadrant Plan: Patient has a large left breast mass as well as enlarged left axillary lymph node. Biopsy of each was performed today. I informed the patient that this is likely cancerous as it is a BI-RADS 5 and it is very large and firm. I will call her with results once I get them. Feliciano Castellon MD Pager: [facility] [address] [place] [address], [address] [place] [address] Office: Orders: Orders Biopsy 12/10/24 N63.22 - Unspecified lump in the left breast, upper inner quadrant Coding Level of Care Code Attention Accounting Systems Manager Diagnoses Mass of upper inner quadrant of left napoleon (more content not included)... Normal [facility] Surgery Visit Reporton 12-09 Surgery Visit Report [facility] [address] [place] [address]. [address] [place] [address] OFFICE VISIT Date of Service: 12/09/24 MR#: [id number] Acct: [id number] Name: HOWARD HALL Rep #: [id number] : 1980 Provider: Dr. Feliciano miles MD Age/Sex: 43/F Location: [facility] Status: Signed Intake Vital Signs 08/15/17 21:48 12/09/24 14:01 Height 5 ft 5.5 in 5 ft 5.5 in Weight: 147 lb BMI 24.0 BP 169/92 H Blood Pressure Location Rt brachial Position Sitting Respiration 18 Pulse 93 Pulse Source Monitor Temp 97.5 F L Temp Source Temporal Pulse Oximetry (%) 98 Oxygen Delivery Method room air Intake Visit Reasons: BIRADS 5 Chief Complaint: BIRADS 5 Is patient in pain?: No Allergies No Known Allergies Allergy (Verified 12/09/24 14:02) [facility] Medical History (Updated 12/09/24 @ 14:[address] Feliciano Castellon MD) Abnormal ultrasound of breast Abnormal mammogram Left breast mass Family History (Updated 12/09/24 @ 14:01 by Hollie Solorio LPN) Aunt Breast cancer Aunt Breast cancer Aunt Breast cancer Father Brain tumor Uncle Cancer Social History Smoking Status: Light Smoker (<10/day) HPI HPI HPI: Patient is a 43-year-old female here for breast mass on the left. Patient notes that has been there for several months and it is growing. She also has inverted nipple on the left. She has breast cancer in her family history and 2 aunts and other types of cancer in her family history. The patient does not have any pain in the area. ROS General General: No weight change, appetite, fatigue, colon cancer, breast cancer or weakness HEENT HEENT: No difficulty swallowing, eye injury, eye surgery, swollen glands or hoarseness Endo Endocrine: No thyroid disease, diabetes mellitus, thyroid cancer, Hair loss, heat intolerance or cold intolerance Skin Skin: No rash or changing moles Breast Breast: Yes left breast lump, abnormal mammogram and abnormal US; No right breast lump, nipple discharge, breast pain or breast enlargement Musc Musculoskeletal: No back problems, arthritis, rheumatoid arthritis, gout or joint pain Cardio Cardiovascular: No murmur, pacemaker, heart disease, atrial fibrillation, high blood pressure, heart attack, heart stent, palpitations, shortness of breath with exertion or chest pain Psych Psychiatric: Yes depression; No anxiety or hearing voices Resp Respiratory: No shortness of breath, No sleep apnea, No cough, No COPD, No asthma, No emphysema and No wheezing Gastro Gastrointestinal: No abdominal pain, No nausea or vomiting, No diarrhea, No constipation, No blood in stool, No acid reflux, No hemorrhoids, No ulcers, No gallbladder problem and No black,tarry stools Uche Hematologic: No blood thinners, No blood disorders, No bleeding, No anemia and No blood clots Neuro Neurologic: No numbness, No tingling and No weakness Exam Const General: cooperative Orientation: alert and oriented x3 HENMT Head: normal to inspection Neck Neck: normal visual inspection and full ROM Chest Chest palpation inspection: normal inspection of the chest Breast Palpation: Yes breast mass lrb: Left Resp Effort Inspection: normal respiratory effort Auscultation: clear to auscultation bilaterally Cardio Rate: regular rate Rhythm: regular rhythm GI Inspection: non-distended Palpation: soft and nontender Skin General: no rashes or lesions noted Neuro General: patient alert and patient oriented x3 Extrem General: full ROM Psych Appearance: grossly normal Mental Status: mental status grossly normal Assessment and Plan Assessment and Plan (1) Left breast mass: Status: Acute Qualifiers: Breast mass location: upper inner quadrant Qualified Code(s): N63.22 - Unspecified lump in the left breast, upper inner quadrant Plan: The patient has a large left breast mass. It measures about 6 cm. I discussed with her that this is a BI-RADS 5 lesion and she also has enlarged axillary lymph nodes. I am highly concerned that this is malignant. I will perform her biopsy tomorrow. We will biopsy the large mass as well as the smaller mass and the axillary lymph node. There is another area that has calcifications that I cannot see an ultrasound. I also discussed that if this comes back is malignant she would need genetic testing first and she would be interested in reconstructive surgery. I discussed biopsy with the patient in detail. I discussed the risks including but not limited to bleeding, infection, need for further biopsy. Feliciano Castellon MD Pager: [facility] [address] [place] [address], [address] [place] [address] Office: Medications: Discontinued ibuprofen (more content not included)... Normal [facility] Breast imaging reportOrdered By: Elsy Sarah on 12-05-2024 Study report [facility] Imaging Services [address] [place], [place] [id number] DIAG MAMM W/CAD, BILAT MR#: [id number] Acct: [id number] Name: HOWARD HALL Falguni Rep #: [id number] : 1980 F 43 From: Kamilah Sarah MD PCP: Dr. David Michael DO Status: [facility] Study:DIAG MAMM W/CAD, BILAT Date of Exam: 12/04/24 Exam# [id number] Ordering Dr: David Michael DO EXAM: BREAST LIMITED UNILATERAL; DIAG MAMM W/CAD, BILAT; BILAT BRST MIKA STAND ALONE N/A; 12/04/2024 CLINICAL HISTORY: 43-year-old female presents with palpable concern in the left breast. Family history of breast cancer in paternal aunt. TECHNIQUE: Bilateral Diagnostic digital breast tomosynthesis with 2D and 3D images. Computer aided detection. Also, left breast ultrasound was performed. COMPARISON: Prior exam(s) dated 04/20/2022, 11/01/2016, 04/20/2016. FINDINGS: MAMMOGRAM: TISSUE DENSITY: The breast tissue is extremely dense which lowers the sensitivity of mammography. The mammogram demonstrates that the patient has dense breasts. Supplemental screening with whole breast ultrasound or MRI may be considered for further evaluation. Right breast: No significant masses, calcifications or other abnormalities are identified. Left breast: There is a triangle skin marker indicating the area of palpable concern in the lower inner left breast. Underlying the skin marker is a high density irregular mass with associated calcifications. The abnormal calcifications and mass involve the entire medial left breast, as well as extending centrally. There is an additional separate smaller group of suspicious fine pleomorphic calcifications in the upper outer left breast at posterior depth, measuring 2.0 x 0.6 x 2.1 cm (AP by TR by CC). ULTRASOUND: Ultrasound performed of the area of palpable concern in the left breast demonstrates an irregular hypoechoic mass with calcifications and flow peripherally extending from 9:00 - 11:00, 5 cm from the nipple measuring 5.5 x 3.5 x 2.0 cm. There is another irregular hypoechoic mass at 9 o'clock 1 cm from the nipple measuring 1.3 x 1.2 x 0.9 cm. This might represents a satellite lesion. There is a smaller irregular hypoechoic mass with calcifications at 1 o'clock, 5cm from the nipple measuring 1.1 x 0.9 x 0.8 cm. There is a cyst at 1 o'clock 4 cm from the nipple measuring 0.7 x 0.6 x 0.3 cm. There are 2 prominent left axillary lymph nodes with diffuse cortical thickening, the largest measures 2.3 x 1.3 x 0.7 cm with cortical thickness of 0.4 cm. The other abnormal left axillary lymph node measures 1.5 x 0.6 x 0.7 cm. BI/DIAG MAMM W/CAD, BILAT IMPRESSION: 1. Suspicious irregular left breast mass with calcifications at 9 o'clock-11 o'clock, 5 cm from the nipple. Recommend tissue sampling with ultrasound-guided core needle biopsy. 2. Suspicious left breast mass at 1 o'clock 5 cm from the nipple. Recommend tissue sampling with ultrasound guided core needle biopsy. 3. Suspicious left breast mass at 9 o'clock 1 cm from the nipple. 4. Suspicious left breast calcifications in the upper-outer left breast at posterior depth. Recommend tissue sampling with stereotactic guided core needle biopsy. 5. Abnormal left axillary lymph nodes. Recommend tissue sampling of the largerlymph node with ultrasound-guided core needle biopsy. OVERALL FINAL ASSESSMENT: BIRADS 5 HIGHLY SUGGESTIVE OF MALIGNANCY. RECOMMENDATION: Core needle biopsy is recommended. A letter with findings and recommendations will be mailed to the patient. Reading Location: [facility] CC: Dr. David Michael DO ~ Cleaner And Presser: Signed [facility] Study report [facility] Imaging Services [address] [facility] [place] [address] Bil[address] Mika Stand Alone MR#: [id number] Acct: [id number] Name: HOWARD HALL Falguni Rep #: [id number] : 1980 F 43 From: Kamilah Sarah MD PCP: Dr. David Michael DO Status: REG CLI Study:Bilat Brst Mika Stand Alone Date of Exa m: 12/04/24 Exam# [id number] Ordering Dr: David Michael DO EXAM: BREAST LIMITED UNILATERAL; DIAG MAMM W/CAD, BILAT; BILAT BRST MIKA STAND ALONE N/A; 12/04/2024 CLINICAL HISTORY: 43-year-old female presents with palpable concern in the left breast. Family history of breast cancer in paternal aunt. TECHNIQUE: Bilateral Diagnostic digital breast tomosynthesis with 2D and 3D images. Computer aided detection. Also, left breast ultrasound was performed. COMPARISON: Prior exam(s) dated 04/20/2022, 11/01/2016, 04/20/2016. FINDINGS: MAMMOGRAM: TISSUE DENSITY: The breast tissue is extremely dense which lowers the sensitivity of mammography. The mammogram demonstrates that the patient has dense breasts. Supplemental screening with whole breast ultrasound or MRI may be considered for further evaluation. Right breast: No significant masses, calcifications or other abnormalities are identified. Left breast: There is a triangle skin marker indicating the area of palpable concern in the lower inner left breast. Underlying the skin marker is a high density irregular mass with associated calcifications. The abnormal calcifications and mass involve the entire medial left breast, as well as extending centrally. There is an additional separate smaller group of suspicious fine pleomorphic calcifications in the upper outer left breast at posterior depth, measuring 2.0 x 0.6 x 2.1 cm (AP by TR by CC). ULTRASOUND: Ultrasound performed of the area of palpable concern in the left breast demonstrates an irregular hypoechoic mass with calcifications and flow peripherally extending from 9:00 - 11:00, 5 cm from the nipple measuring 5.5 x 3.5 x 2.0 cm. There is another irregular hypoechoic mass at 9 o'clock 1 cm from the nipple measuring 1.3 x 1.2 x 0.9 cm. This might represents a satellite lesion. There is a smaller irregular hypoechoic mass with calcifications at 1 o'clock, 5cm from the nipple measuring 1.1 x 0.9 x 0.8 cm. There is a cyst at 1 o'clock 4 cm from the nipple measuring 0.7 x 0.6 x 0.3 cm. There are 2 prominent left axillary lymph nodes with diffuse cortical thickening, the largest measures 2.3 x 1.3 x 0.7 cm with cortical thickness of 0.4 cm. The other abnormal left axillary lymph node measures 1.5 x 0.6 x 0.7 cm. BI/Bilat Brst Mika Stand Alone IMPRESSION: 1. Suspicious irregular left breast mass with calcifications at 9 o'clock-11 o'clock, 5 cm from the nipple. Recommend tissue sampling with ultrasound-guided core needle biopsy. 2. Suspicious left breast mass at 1 o'clock 5 cm from the nipple. Recommend tissue sampling with ultrasound guided core needle biopsy. 3. Suspicious left breast mass at 9 o'clock 1 cm from the nipple. 4. Suspicious left breast calcifications in the upper-outer left breast at posterior depth. Recommend tissue sampling with stereotactic guided core needle biopsy. 5. Abnormal left axillary lymph nodes. Recommend tissue sampling of the largerlymph node with ultrasound-guided core needle biopsy. OVERALL FINAL ASSESSMENT: BIRADS 5 HIGHLY SUGGESTIVE OF MALIGNANCY. RECOMMENDATION: Core needle biopsy is recommended. A letter with findings and recommendations will be mailed to the patient. Reading Location: [id number] CC: Dr. David Michael DO ~ Cleaner And Presser: Signed [facility] Bilat Brst Mika Stand Aloneo n 12-04-2024 Bilat Brst Mika Stand Alone [facility] Imaging Services [address] [place], [place] [address] Bilat Brst Mika Stand Alone MR#: [id number] Acct: [id number] Name: HOWARD HALL Rep #: [id number] : 1980 F 43 From: Elsy Sarah MD PCP: Dr. David Michael DO Status: REG CLI Study: Bilat Brst Mika Stand Alone Date of Exam: 02/21 Exam# [id number] Ordering Dr: David Michael DO EXAM: BREAST LIMITED UNILATERAL; DIAG MAMM W/CAD, BILAT; BILAT BRST MIKA STAND ALONE N/A; 12/04/2024 CLINICAL HISTORY: 43-year-old female presents with palpable concern in the left breast. Family history of breast cancer in paternal aunt. TECHNIQUE: Bilateral Diagnostic digital breast tomosynthesis with 2D and 3D images. Computer aided detection. Also, left breast ultrasound was performed. COMPARISON: Prior exam(s) dated 04/20/2022, 11/01/2016, 04/20/2016. FINDINGS: MAMMOGRAM: TISSUE DENSITY: The breast tissue is extremely dense which lowers the sensitivity of mammography. The mammogram demonstrates that the patient has dense breasts. Supplemental screening with whole breast ultrasound or MRI may be considered for further evaluation. Right breast: No significant masses, calcifications or other abnormalities are identified. Left breast: There is a triangle skin marker indicating the area of palpable concern in the lower inner left breast. Underlying the skin marker is a high density irregular mass with associated calcifications. The abnormal calcifications and mass involve the entire medial left breast, as well as extending centrally. There is an additional separate smaller group of suspicious fine pleomorphic calcifications in the upper outer left breast at posterior depth, measuring 2.0 x 0.6 x 2.1 cm (AP by TR by CC). ULTRASOUND: Ultrasound performed of the area of palpable concern in the left breast demonstrates an irregular hypoechoic mass with calcifications and flow peripherally extending from 9:00 - 11:00, 5 cm from the nipple measuring 5.5 x 3.5 x 2.0 cm. There is another irregular hypoechoic mass at 9 o'clock 1 cm from the nipple measuring 1.3 x 1.2 x 0.9 cm. This might represents a satellite lesion. There is a smaller irregular hypoechoic mass with calcifications at 1 o'clock, 5 cm from the nipple measuring 1.1 x 0.9 x 0.8 cm. There is a cyst at 1 o'clock 4 cm from the nipple measuring 0.7 x 0.6 x 0.3 cm. There are 2 prominent left axillary lymph nodes with diffuse cortical thickening, the largest measures 2.3 x 1.3 x 0.7 cm with cortical thickness of 0.4 cm. The other abnormal left axillary lymph node measures 1.5 x 0.6 x 0.7 cm. BI/Bilat Brst Mika Stand Alone IMPRESSION: 1. Suspicious irregular left breast mass with calcifications at 9 o'clock-11 o'clock, 5 cm from the nipple. Recommend tissue sampling with ultrasound-guided core needle biopsy. 2. Suspicious left breast mass at 1 o'clock 5 cm from the nipple. Recommend tissue sampling with ultrasound guided core needle biopsy. 3. Suspicious left breast mass at 9 o'clock 1 cm from the nipple. 4. Suspicious left breast calcifications in the upper-outer left breast at posterior depth. Recommend tissue sampling with stereotactic guided core needle biopsy. 5. Abnormal left axillary lymph nodes. Recommend tissue sampling of the larger lymph node with ultrasound-guided core needle biopsy. OVERALL FINAL ASSESSMENT: BIRADS 5 HIGHLY SUGGESTIVE OF MALIGNANCY. RECOMMENDATION: Core needle biopsy is recommended. A letter with findings and recommendations will be mailed to the patient. Reading Location: [id number] CC: Dr. David Michael, Cleaner And Presser: Signed Normal [facility] Breast Limited Unilateralon 12-04-2024 Breast Limited Unilateral [facility] Imaging Services [address] [place] [id number] Breast Limited Unilateral MR#: [id number] Acct: [id number] Name: HOWARD HALL Rep #: [id number] : 1980 F 43 From: Elsy Sarah MD PCP: Dr. David Michael, Status: REG CLI Study: Breast Limited Unilateral Date of Exam: Exam# [id number] Ordering Dr: David Michael DO EXAM: BREAST LIMITED UNILATERAL; DIAG MAMM W/CAD, BILAT; BILAT BRST MIKA STAND ALONE N/A; 12/04/2024 CLINICAL HISTORY: 43-year-old female presents with palpable concern in the left breast. Family history of breast cancer in paternal aunt. TECHNIQUE: Bilateral Diagnostic digital breast tomosynthesis with 2D and 3D images. Computer aided detection. Also, left breast ultrasound was performed. COMPARISON: Prior exam(s) dated 04/20/2022, 11/01/2016, 04/20/2016. FINDINGS: MAMMOGRAM: TISSUE DENSITY: The breast tissue is extremely dense which lowers the sensitivity of mammography. The mammogram demonstrates that the patient has dense breasts. Supplemental screening with whole breast ultrasound or MRI may be considered for further evaluation. Right breast: No significant masses, calcifications or other abnormalities are identified. Left breast: There is a triangle skin marker indicating the area of palpable concern in the lower inner left breast. Underlying the skin marker is a high density irregular mass with associated calcifications. The abnormal calcifications and mass involve the entire medial left breast, as well as extending centrally. There is an additional separate smaller group of suspicious fine pleomorphic calcifications in the upper outer left breast at posterior depth, measuring 2.0 x 0.6 x 2.1 cm (AP by TR by CC). ULTRASOUND: Ultrasound performed of the area of palpable concern in the left breast demonstrates an irregular hypoechoic mass with calcifications and flow peripherally extending from 9:00 - 11:00, 5 cm from the nipple measuring 5.5 x 3.5 x 2.0 cm. There is another irregular hypoechoic mass at 9 o'clock 1 cm from the nipple measuring 1.3 x 1.2 x 0.9 cm. This might represents a satellite lesion. There is a smaller irregular hypoechoic mass with calcifications at 1 o'clock, 5 cm from the nipple measuring 1.1 x 0.9 x 0.8 cm. There is a cyst at 1 o'clock 4 cm from the nipple measuring 0.7 x 0.6 x 0.3 cm. There are 2 prominent left axillary lymph nodes with diffuse cortical thickening, the largest measures 2.3 x 1.3 x 0.7 cm with cortical thickness of 0.4 cm. The other abnormal left axillary lymph node measures 1.5 x 0.6 x 0.7 cm. US/Breast Limited Unilateral IMPRESSION: 1. Suspicious irregular left breast mass with calcifications at 9 o'clock-11 o'clock, 5 cm from the nipple. Recommend tissue sampling with ultrasound-guided core needle biopsy. 2. Suspicious left breast mass at 1 o'clock 5 cm from the nipple. Recommend tissue sampling with ultrasound guided core needle biopsy. 3. Suspicious left breast mass at 9 o'clock 1 cm from the nipple. 4. Suspicious left breast calcifications in the upper-outer left breast at posterior depth. Recommend tissue sampling with stereotactic guided core needle biopsy. 5. Abnormal left axillary lymph nodes. Recommend tissue sampling of the larger lymph node with ultrasound-guided core needle biopsy. OVERALL FINAL ASSESSMENT: BIRADS 5 HIGHLY SUGGESTIVE OF MALIGNANCY. RECOMMENDATION: Core needle biopsy is recommended. A letter with findings and recommendations will be mailed to the patient. Reading Location: [facility] CC: Dr. David Michael DO Cleaner And Presser: Signed Normal [facility] DIAG MAMM W/CAD, BILATon DIAG MAMM W/CAD, BILAT [facility] Imaging Services [address] [place] [address] DIAG MAMM W/CAD, BILAT MR#: [id number] Acct: [id number] Name: HOWARD HALL Rep #: [id number] : 1980 F 43 From: Elsy Sarah MD PCP: Dr. David Michael DO Status: [facility] Study: DIAG MAMM W/CAD, BILAT Date of Exam: 12/04/24 Exam# [id number] Ordering Dr: David Michael DO EXAM: BREAST LIMITED UNILATERAL; DIAG MAMM W/CAD, BILAT; BILAT BRST MIKA STAND ALONE N/A; 12/04/2024 CLINICAL HISTORY: 43-year-old female presents with palpable concern in the left breast. Family history of breast cancer in paternal aunt. TECHNIQUE: Bilateral Diagnostic digital breast tomosynthesis with 2D and 3D images. Computer aided detection. Also, left breast ultrasound was performed. COMPARISON: Prior exam(s) dated 04/20/2022, 11/01/2016, 04/20/2016. FINDINGS: MAMMOGRAM: TISSUE DENSITY: The breast tissue is extremely dense which lowers the sensitivity of mammography. The mammogram demonstrates that the patient has dense breasts. Supplemental screening with whole breast ultrasound or MRI may be considered for further evaluation. Right breast: No significant masses, calcifications or other abnormalities are identified. Left breast: There is a triangle skin marker indicating the area of palpable concern in the lower inner left breast. Underlying the skin marker is a high density irregular mass with associated calcifications. The abnormal calcifications and mass involve the entire medial left breast, as well as extending centrally. There is an additional separate smaller group of suspicious fine pleomorphic calcifications in the upper outer left breast at posterior depth, measuring 2.0 x 0.6 x 2.1 cm (AP by TR by CC). ULTRASOUND: Ultrasound performed of the area of palpable concern in the left breast demonstrates an irregular hypoechoic mass with calcifications and flow peripherally extending from 9:00 - 11:00, 5 cm from the nipple measuring 5.5 x 3.5 x 2.0 cm. There is another irregular hypoechoic mass at 9 o'clock 1 cm from the nipple measuring 1.3 x 1.2 x 0.9 cm. This might represents a satellite lesion. There is a smaller irregular hypoechoic mass with calcifications at 1 o'clock, 5 cm from the nipple measuring 1.1 x 0.9 x 0.8 cm. There is a cyst at 1 o'clock 4 cm from the nipple measuring 0.7 x 0.6 x 0.3 cm. There are 2 prominent left axillary lymph nodes with diffuse cortical thickening, the largest measures 2.3 x 1.3 x 0.7 cm with cortical thickness of 0.4 cm. The other abnormal left axillary lymph node measures 1.5 x 0.6 x 0.7 cm. BI/DIAG MAMM W/CAD, BILAT IMPRESSION: 1. Suspicious irregular left breast mass with calcifications at 9 o'clock-11 o'clock, 5 cm from the nipple. Recommend tissue sampling with ultrasound-guided core needle biopsy. 2. Suspicious left breast mass at 1 o'clock 5 cm from the nipple. Recommend tissue sampling with ultrasound guided core needle biopsy. 3. Suspicious left breast mass at 9 o'clock 1 cm from the nipple. 4. Suspicious left breast calcifications in the upper-outer left breast at posterior depth. Recommend tissue sampling with stereotactic guided core needle biopsy. 5. Abnormal left axillary lymph nodes. Recommend tissue sampling of the larger lymph node with ultrasound-guided core needle biopsy. OVERALL FINAL ASSESSMENT: BIRADS 5 HIGHLY SUGGESTIVE OF MALIGNANCY. RECOMMENDATION: Core needle biopsy is recommended. A letter with findings and recommendations will be mailed to the patient. Reading Location: [facility] CC: Dr. David Michael DO Cleaner And Presser: Signed Normal [facility] Quantiferon TB-Gold+on 11-16 QFT MITOGEN DANIEL > 10.00 Normal . [facility] Comment on above: Performed By: #### L 500.4050, L100.0100, L501.9520, L3400.8000 ####[facility] [address] [place], [place], [id number] QFT NIL VALUE 0.05 IU/mL Normal . [facility] Comment on above: Performed By: #### L 500.4050, L100.0100, L501.9520, L3400.8000 ####[facility] [address] [place], [address] QFT TB GOLD+ Comment Normal . [facility] Comment on above: Result Comment: Oswaldo tiFERON-TB Gold Plus is a qualitative indirect test for M tuberculosis infection (including disease) and is intended for use in conjunction with risk assessment, radiography, and other medical and diagnostic evaluations. The QuantiFERON-TB Gold Plus result is determined by subtracting the Nil value from either TB antigen (Ag) value. The Mitogen tube serves as a control for the test. Performed By: #### L 500.4050, L100.0100, L501.9520, L3400.8000 ####[facility] [address] [place], [address] QFT TB POS CRIT Negative Normal Negative [facility] Comment on above: Result Comment: No r esponse to M tuberculosis antigens detected. Infection with M tuberculosis is unlikely, but high risk individuals should be considered for additional testing (ATS/IDSA/CDC Clinical Practice Guidelines, 2017). The reference range is an Antigen minus Nil result of <0.35 IU/mL. The specimen received for QuantiFERON testing was incubated by the ordering institution. Specific procedures outlined in our Directory of Services and in the package insert for the QuantiFERON Gold (In Tube) test must be followed to enable for proper stimulation of cells for the production of interferon gamma. Chemiluminescence immunoassay methodology Performed at: [facility] [id number] [employer] Counselor: Mendez Parmar PhD, Phone: [phone] Performed By: #### L 500.4050, L100.0100, L501.9520, L3400.8000 ####[facility] [address] [place], [address] QFT TB1+ AG DANIEL 0.10 IU/mL Normal . [facility] Comment on above: Performed By: #### L 500.4050, L100.0100, L501.9520, L3400.8000 ####[facility] [address] [place], [address] QFT TB2+ AG DANIEL 0.10 IU/mL Normal . [facility] Comment on above: Performed By: #### L 500.4050, L100.0100, L501.9520, L3400.8000 ####[facility] [address] [place], [address] Absolute lymphocyte countOrd ered By: David Michael on 11-14-2024 Lymphocytes Auto (Unsp spec) [#/Vol] 1.72 10*3/uL 0.83-4.51 [facility] Absolute neutrophil countOrd ered By: David RiceParadise on 11-14-2024 Neutrophils (Bld) [#/Vol] 2.6 10*3/uL 2.0-7.7 [facility] Anion gap in Serum or Plasma Ordered By: David Michael on 11-14-2024 Anion gap [Moles/Vol] 13 mmol/L 5- [facility] Automated lymphocyte count a s percentage of total leukocytesOrdered By: David Michael on 11-14-2024 Lymphocytes/100 WBC Auto (Unsp spec) 35.2 % - [facility] BUN/creatinine ratioOrdered By: David Michael on 11-14-2024 Urea nitrogen/Creatinine [Mass ratio] 14.9 mg/mg 10- [facility] Basophil percentageOrdered B y: David Michael on 11-14-2024 Basophils/100 WBC (Bld) 0.6 % 0-1 [facility] Bilirubin, totalOrdered By: David Michael on 11-14-2024 Bilirubin [Mass/Vol] 0.27 mg/dL 0.00-1.30 [facility] CBC W/Diff, Automatedon 10-29 Absolute Lymph 1.72 X10 3/uL Normal 0.83-4.51 [facility] Comment on above: Performed By: #### L 500.4050, L100.0100, L501.9520, L3400.8000 ####[facility] [address] [place], [address] Absolute Neut 2.6 X10 3/uL Normal 2.0-7.7 [facility] Comment on above: Performed By: #### L 500.4050, L100.0100, L501.9520, L3400.8000 ####[facility] [address] [place], [address] Basophils/100 WBC (Bld) 0.6 % Normal 0-1 [facility] Comment on above: Performed By: #### L 500.4050, L100.0100, L501.9520, L3400.8000 ####[facility] [address] [place], [address] Eosinophils/100 WBC (Bld) 3.3 % Normal 0-5 [facility] Comment on above: Performed By: #### L 500.4050, L100.0100, L501.9520, L3400.8000 ####[facility] [address] [place], [address] Erythrocyte distribution width (RBC) [Ratio] 12.0 % Normal 11.6-14.6 [facility] Comment on above: Performed By: #### L 500.4050, L100.0100, L501.9520, L3400.8000 ####[facility] [address] [place], [address] Hematocrit (Bld) [Volume fraction] 38.0 % Normal 37-47 [facility] Comment on above: Performed By: #### L 500.4050, L100.0100, L501.9520, L3400.8000 ####[facility] [address] [place], [address] Hemoglobin (Bld) [Mass/Vol] 12.8 g/dL Normal 12.0-15.0 [facility] Comment on above: Performed By: #### L 500.4050, L100.0100, L501.9520, L3400.8000 ####[facility] [address] [place], [address] IG% 0.200 Normal 0.0-0.9 [facility] Comment on above: Result Comment: IG% - Immature Granulocytes (promyelocytes, myelocytes and metamyelocytes) > 1% indicates that a LEFT SHIFT is Present. Performed By: #### L 500.4050, L100.0100, L501.9520, L3400.8000 ####[facility] [address] [place], [address] Lymphocytes/100 WBC (Bld) 35.2 % Normal 19-41 [facility] Comment on above: Performed By: #### L 500.4050, L100.0100, L501.9520, L3400.8000 ####[facility] [address] [place], [address] MCH (RBC) [Entitic mass] 28.9 pg Normal 27.0-32.0 [facility] Comment on above: Performed By: #### L 500.4050, L100.0100, L501.9520, L3400.8000 ####[facility] [address] [place], [address] MCHC (RBC) [Mass/Vol] 33.7 g/dL Normal 32-36 [facility] Comment on above: Performed By: #### L 500.4050, L100.0100, L501.9520, L3400.8000 ####[facility] [address] [place], [address] MCV (RBC) [Entitic vol] 85.8 fL Normal 81-99 [facility] Comment on above: Performed By: #### L 500.4050, L100.0100, L501.9520, L3400.8000 ####[facility] [address] [place], [address] Monocytes/100 WBC (Bld) 7.8 % Normal 0-10 [facility] Comment on above: Performed By: #### L 500.4050, L100.0100, L501.9520, L3400.8000 ####[facility] [address] [place], [address] Neutrophils/100 WBC (Bld) 52.9 % Normal 47-70 [facility] Comment on above: Performed By: #### L 500.4050, L100.0100, L501.9520, L3400.8000 ####[facility] [address] [place], [address] Nucleated RBC (Bld) [#/Vol] 0 10*3/uL Normal 0-5 [facility] Comment on above: Performed By: #### L 500.4050, L100.0100, L501.9520, L3400.8000 ####[facility] [address] [place], [address] Platelet mean volume (Bld) [Entitic vol] 11.1 fL Normal 6.2-12.0 [facility] Comment on above: Performed By: #### L 500.4050, L100.0100, L501.9520, L3400.8000 ####[facility] [address] [place], [address] Platelets (Bld) [#/Vol] 259 10*3/uL Normal 150-450 [facility] Comment on above: Performed By: #### L 500.4050, L100.0100, L501.9520, L3400.8000 ####[facility] [address] [place], [address] RBC (Bld) [#/Vol] 4.43 10*6/uL Normal 4.2-5.4 [facility] Comment on above: Performed By: #### L 500.4050, L100.0100, L501.9520, L3400.8000 ####[facility] [address] [place], [address] RDW SD 37.8 fl Normal 35.1-43.9 [facility] Comment on above: Performed By: #### L 500.4050, L100.0100, L501.9520, L3400.8000 ####[facility] [address] [place], [address] WBC (Bld) [#/Vol] 4.9 10*3/uL Normal 4.4-11.0 [facility] Comment on above: Performed By: #### L 500.4050, L100.0100, L501.9520, L3400.8000 ####[facility] [address] [place], [address] Carbon dioxide, total [Moles /volume] in Central venous bloodOrdered By: David Michael on 11-14-2024 CO2 [Moles/Vol] 24.8 mmol/L 21.0-32.0 [facility] Chloride assayOrdered By: Jluis Michael on 11-14-2024 Chloride [Moles/Vol] 103 mmol/L 98-108 [facility] Comprehensive Metabolic Prof ilon 11-14-2024 Albumin [Mass/Vol] 4.5 g/dL Normal 3.5-5.0 [facility] Comment on above: Performed By: #### L 500.4050, L100.0100, L501.9520, L3400.8000 ####[facility] [address] [place], [address] Albumin/Globulin [Mass ratio] 1.5 {ratio} Normal 0.9-2.4 [facility] Comment on above: Performed By: #### L 500.4050, L100.0100, L501.9520, L3400.8000 ####[facility] [address] [place], [address] ALK PHOS 96 U/L Normal 35-104 [facility] Comment on above: Performed By: #### L 500.4050, L100.0100, L501.9520, L3400.8000 ####[facility] [address] [place], [address] ALT [Catalytic activity/Vol] 26 U/L Normal <=34 [facility] Comment on above: Performed By: #### L 500.4050, L100.0100, L501.9520, L3400.8000 ####[facility] [address] [place], [address] AST [Catalytic activity/Vol] 30 U/L Normal <=31 [facility] Comment on above: Performed By: #### L 500.4050, L100.0100, L501.9520, L3400.8000 ####[facility] [address] [place], [address] Bilirubin [Mass/Vol] 0.27 mg/dL Normal 0.00-1.30 [facility] Comment on above: Performed By: #### L 500.4050, L100.0100, L501.9520, L3400.8000 ####[facility] [address] [place], [address] BUN/CRE 14.9 RATIO Normal 10-20 [facility] Comment on above: Performed By: #### L 500.4050, L100.0100, L501.9520, L3400.8000 ####[facility] [address] [place], [address] Calcium [Mass/Vol] 10.0 mg/dL Normal 7.6-11.0 [facility] Comment on above: Performed By: #### L 500.4050, L100.0100, L501.9520, L3400.8000 ####[facility] [address] [place], [address] Chloride [Moles/Vol] 103 mmol/L Normal 98-108 [facility] Comment on above: Performed By: #### L 500.4050, L100.0100, L501.9520, L3400.8000 ####[facility] [address] [place], [address] CO2 [Moles/Vol] 24.8 mmol/L Normal 21.0-32.0 [facility] Comment on above: Performed By: #### L 500.4050, L100.0100, L501.9520, L3400.8000 ####[facility] [address] [place], [address] Creatinine [Mass/Vol] 0.89 mg/dL Normal 0.70-1.20 [facility] Comment on above: Performed By: #### L 500.4050, L100.0100, L501.9520, L3400.8000 ####[facility] [address] [place], [address] GAP 13 Normal 5-15 [facility] Comment on above: Performed By: #### L 500.4050, L100.0100, L501.9520, L3400.8000 ####[facility] [address] [place], [address] GFR/1.73 sq M.predicted among non-blacks MDRD (S/P/Bld) [Vol rate/Area] 82 mL/min/{1.73_m2} Normal >60 [facility] Comment on above: Result Comment: mL/m in/1.73m2 CKD-EPI Creatinine Equation (2020) Performed By: #### L 500.4050, L100.0100, L501.9520, L3400.8000 ####[facility] [address] [place], [address] Globulin (S) [Mass/Vol] 3.0 g/dL Normal 2.2-4.2 [facility] Comment on above: Performed By: #### L 500.4050, L100.0100, L501.9520, L3400.8000 ####[facility] [address] [place], [address] Glucose [Mass/Vol] 110 mg/dL High 70-99 [facility] Comment on above: Performed By: #### L 500.4050, L100.0100, L501.9520, L3400.8000 ####[facility] [address] [place], [address] Potassium [Moles/Vol] 3.7 mmol/L Normal 3.3-5.1 [facility] Comment on above: Performed By: #### L 500.4050, L100.0100, L501.9520, L3400.8000 ####[facility] [address] [place], [address] Sodium [Moles/Vol] 141 mmol/L Normal 133-145 [facility] Comment on above: Performed By: #### L 500.4050, L100.0100, L501.9520, L3400.8000 ####[facility] [address] [place], [address] T PROT 7.4 g/dL Normal 5.9-8.4 [facility] Comment on above: Performed By: #### L 500.4050, L100.0100, L501.9520, L3400.8000 ####[facility] [address] [place], [address] Urea nitrogen [Mass/Vol] 13 mg/dL Normal 4-19 [facility] Comment on above: Performed By: #### L 500.4050, L100.0100, L501.9520, L3400.8000 ####[facility] [address] [place], [address] Eosinophil percentageOrdered By: David Michael on 11-14-2024 Eosinophils/100 WBC (Bld) 3.3 % 0-5 [facility] Erythrocyte distribution wid th ratioOrdered By: David Michael on 11-14-2024 Erythrocyte distribution width (RBC) [Ratio] 12.0 % 11.6-14.6 [facility] Erythrocyte distribution wid th standard deviationOrdered By: David Michael on 11-14-2024 Erythrocyte distribution width (RBC) [Ratio] 37.8 fl 35.1-43.9 [facility] Glomerular filtration rate ( GFR) estimation/1.73 sq m using serum, plasma, or whole bOrdered By: David Michael on 11-14-2024 GFR/1.73 sq M.predicted among non-blacks MDRD (S/P/Bld) [Vol rate/Area] 82 mL/min/{1.73_m2} >60 [facility] Comment on above: mL/min/1.73m2 CKD-EP I Creatinine Equation (2020) Hematocrit Auto (Bld) [Volum e fraction]Ordered By: David Michael on 11-14-2024 Hematocrit (Bld) [Volume fraction] 38.0 % 37-47 [facility] Hemoglobin measurementOrdere d By: David Michael on 11-14-2024 Hemoglobin (Bld) [Mass/Vol] 12.8 g/dL 12.0-15.0 [facility] Immature granulocytes/100 WB C Auto (Bld)Ordered By: David Michael on 11-14-2024 Immature granulocytes/100 WBC (Bld) 0.200 % 0.0-0.9 [facility] Comment on above: IG% - Immature Granu locytes (promyelocytes, myelocytes and metamyelocytes) > 1% indicates that a LEFT SHIFT is Present. Laboratory - Chemistry and C hemistry - challengeOrdered By: David Michael on 11-14-2024 AST [Catalytic activity/Vol] 30 U/L <32 [facility] MCV (mean corpuscular volume ) determinationOrdered By: David Michael on 11-14-2024 MCV (RBC) [Entitic vol] 85.8 fL 81-99 [facility] Mean corpuscular hemoglobin (MCH) determinationOrdered By: David Michael on 11-14-2024 MCH (RBC) [Entitic mass] 28.9 pg 27.0-32.0 [facility] Mean corpuscular hemoglobin concentration (MCHC) determinationOrdered By: David Michael on 11-14-2024 MCHC (RBC) [Mass/Vol] 33.7 g/dL 32-36 [facility] Mean platelet volume determi nationOrdered By: David Michael on 11-14-2024 Platelet mean volume (Bld) [Entitic vol] 11.1 fL 6.2-12.0 [facility] Monocyte percentageOrdered B y: David Michael on 11-14-2024 Monocytes/100 WBC (Bld) 7.8 % 0-10 [facility] Neutrophil percentageOrdered By: David Michael on 11-14-2024 Neutrophils/100 WBC (Bld) 52.9 % 47-70 [facility] Nucleated red blood cell per centageOrdered By: David Michael on 11-14-2024 Nucleated RBC/100 WBC (Bld) [Ratio] 0 % 0-5 [facility] Platelet countOrdered By: Jluis Michael on 11-14-2024 Platelets (Bld) [#/Vol] 259 10*3/uL 150-450 [facility] Potassium measurement (mass/ volume)Ordered By: David Michael on 11-14-2024 Potassium (Unsp spec) [Mass/Vol] 3.7 mmol/L 3.3-5.1 [facility] Qualitative QuantiFERON-TB g old in tube testOrdered By: David Michael on 11-14-2024 M. tuberculosis tuberculin stim IFN-g Ql (Bld) 0.10 IU/mL . [facility] RBC Auto (Bld) [#/Vol]Ordere d By: David Michael on 11-14-2024 RBC (Bld) [#/Vol] 4.43 10*6/uL 4.2-5.4 [facility] Serum creatinine measurement (mass/volume)Ordered By: David Michael on 11-14-2024 Creatinine [Mass/Vol] 0.89 mg/dL 0.70-1.20 [facility] Serum globulin measurementOr dered By: David Michael on 11-14-2024 Globulin (S) [Mass/Vol] 3.0 g/dL 2.2-4.2 [facility] Serum glucose measurement (m ass/volume)Ordered By: David Michael on 11-14-2024 Glucose [Mass/Vol] 110 mg/dL High 70-99 [facility] Serum or plasma alanine rainey otransferase (ALT) measurementOrdered By: David Michael on 11-14-2024 ALT [Catalytic activity/Vol] 26 U/L <35 [facility] Serum or plasma albumin ceasar urement (mass/volume)Ordered By: David Michael on 11-14-2024 Albumin [Mass/Vol] 4.5 g/dL 3.5-5.0 [facility] Serum or plasma albumin/glob ulin mass ratioOrdered By: David Michael on 11-14-2024 Albumin/Globulin [Mass ratio] 1.5 {ratio} 0.9-2.4 [facility] Serum or plasma alkaline dasia sphatase measurementOrdered By: David Michael on 11-14-2024 ALP [Catalytic activity/Vol] 96 U/L 35-104 [facility] Serum or plasma calcium ceasar urement (mass/volume)Ordered By: David Michael on 11-14-2024 Calcium [Mass/Vol] 10.0 mg/dL 7.6-11.0 [facility] Serum or plasma urea nitroge n measurement (mass/volume)Ordered By: David Michael on 11-14-2024 Urea nitrogen [Mass/Vol] 13 mg/dL 4-19 [facility] Sodium levelOrdered By: David Michael on 11-14-2024 Sodium [Moles/Vol] 141 mmol/L 133-145 [facility] TSH DL <= 0.005 mIU/L QnOrde red By: David Michael on 11-14-2024 TSH Qn 1.770 uIU/mL 0.300-4.200 [facility] Thyroid Stim Hormone (TSH)on 11-14-2024 TSH 1.770 uIU/mL Normal 0.300-4.200 [facility] Comment on above: Performed By: #### L 500.4050, L100.0100, L501.9520, L3400.8000 ####[facility] [address] [place], [place], [address] Total proteinOrdered By: Ana Michael on 11-14-2024 Protein [Mass/Vol] 7.4 g/dL 5.9-8.4 [facility] White blood cell (WBC) count Ordered By: David Michael on 11-14-2024 WBC (Bld) [#/Vol] 4.9 10*3/uL 4.4-11.0 [facility] ED PROV NOTEon 08-14-2023 ED PROV NOTE HNO ID: [id number] Author: FLORIAN VILLA MD Service: Emergency Medicine Author Type: Physician Type: ED Provider Notes Filed: 08/14/2023 02:45 Note Text: ED Provider Note Patient Name: Howard Hall : 1980 SERVICE DATE: 08/14/23 History Patient presents with: Cough Sinus Problem Patient presenting to the emergency room for evaluation of sore throat, cough and fatigue symptoms. Symptoms started before New Year's, and improved after about a week and then recurred on Monday of last week. Initially a sore throat and cough. Cough described as mostly nonproductive mild tickle. No chest pain or pressure. Was associated with a headache that is now resolved. She does have sinus pressure worse in the maxillary and frontal sinuses. She does have some sinus discharge. Decreased appetite but she is tolerating p.o. intake. Is peeing at least twice a day. No rashes or wounds. Has been more fatigued and was sleeping more intensely, but now feels like she has more energy. Presenting today because she has energy, and has been having symptoms ongoing for about 3 weeks and wants to be assessed. No drooling or change in voice. Has not called her primary care doctor. Denies other acute sick symptoms PAST MEDICAL HISTORY Diagnosis Date Abnormal laboratory test Pt was treated for abnl thyroid test 2001 for 6 months Abnormal Pap smear of cervix 2012 [place] Anemia Anxiety anxiety History of pre-eclampsia in prior , currently PAST SURGICAL HISTORY Procedure Laterality Date DILATION AND CURETTAGE DXAND/THER NONOBSTETRIC FAMILY HISTORY Problem Relation Age of Onset Heart Mother CHF other (anxiety) Mother Cancer Father brain other (anxiety) Father other (anxiety) Sister other (anxiety) Brother Breast Cancer Paternal Aunt other (leukemia) Maternal Uncle Breast Cancer Maternal Aunt Breast Cancer Paternal Aunt Cancer Maternal Aunt stomach Social History Tobacco Use Smoking status: Every Day Packs/day: 0.50 Years: 15.00 Additional pack years: 0.00 Total pack years: 7.50 Types: Cigarettes Smokeless tobacco: Never Substance and Sexual Activity Alcohol use: Never Drug use: No Sexual activity: Yes ALLERGIES No Known Allergies Review of Systems Constitutional: Negative for activity change, chills and fever. HENT: Positive for congestion and sinus pressure. Negative for ear discharge and ear pain. Eyes: Negative for pain and discharge. Respiratory: Positive for cough. Negative for shortness of breath. Cardiovascular: Negative for chest pain and palpitations. Gastrointestinal: Negative for abdominal pain, diarrhea, nausea and vomiting. Genitourinary: Negative for dysuria and flank pain. Musculoskeletal: Negative for back pain and neck pain. Skin: Negative for color change, rash and wound. Neurological: Positive for headaches. Negative for dizziness, seizures and numbness. Psychiatric/Behavioral: Negative for self-injury and suicidal ideas. Physical Exam Vitals BP Pulse Temp Temp src Resp SpO2 Weight Height 08/14/23 0221 08/14/23 0217 08/14/23 0217 08/14/23 0217 08/14/23 0217 08/14/23 0217 08/14/23 0217 08/14/237 166/103 (!) 98 36.4 ?C (97.5 ?F) Temporal Art 17 99 % 65.3 kg (144 lb) 1.651 m (5' 5) Physical Exam Vitals and nursing note reviewed. Constitutional: General: She is not in acute distress. Appearance: She is well-developed. She is not diaphoretic. HENT: Head: Normocephalic and atraumatic. Comments: Mild tenderness over frontal and maxillary sinuses. No notable swelling. Right Ear: Tympanic membrane and external ear normal. Left Ear: Tympanic membrane and external ear normal. Nose: Nose normal. Mouth/Throat: Mouth: Mucous membranes are moist. Pharynx: No oropharyngeal exudate or posterior oropharyngeal erythema. Comments: No posterior oropharynx swelling or exudate. Uvula midline without edema. No drooling or dysphonia. No woody induration underneath the tongue. Tongue is midline without elevation. Eyes: General: No scleral icterus. Right eye: No discharge. Left eye: No discharge. Pupils: Pupils are equal, round, and reactive to light. Cardiovascular: Rate and Rhythm: Normal rate and regular rhythm. Heart sounds: Normal heart sounds. No murmur heard. No friction rub. No gallop. Pulmonary: Effort: Pulmonary effort is normal. No respiratory distress. Breath sounds: Normal breath sounds. No stridor. No wheezing or rales. Chest: Chest wall: No tenderness. Abdominal: Palpations: Abdomen is soft. Tenderness: There is no abdominal tenderness. There is no guarding. Musculoskeletal: General: No tenderness or deformity. Normal range of motion. Cervical back: Normal range of motion and neck supple. Skin: General: Skin is warm and dry. Capillary Refill: Capillary refill takes less than 2 seconds. Findings: No rash. Neurolog (more content not included)... Normal [facility] FLUABV+SARS-CoV-2+RSV Pnl Re sp AMINAH+probeon 08-14-2023 FLUABV+SARS-CoV-2+RSV Pnl Resp AMINAH+probe COVID 19 RESULT: Not detected The method used is RT-PCR or an equivalent NAAT method. Reference Range(the expected result in uninfected individuals): Not detected INFLUENZA A PCR: Not detected INFLUENZA B PCR: Not detected RSV PCR: Not detected Normal [facility] Comment on above: Performed By: #### 9 5941-1 #### [facility] CLIA [id number] [address] [place] [address] STATES OF [facility] YARELY DIAG W MIKA BILon 2021 [facility] DIAG W MIKA AJ * * *Final Report* * * DATE OF EXAM: Apr 20 2022 3:53PM [id number] - [facility] DIAG W MIKA AJ / PROCEDURE REASON: multiple diagnoses * * * * Physician Interpretation * * * * RESULT: #[id number] - [facility] Fittr MIKA AJ #[id number] - [facility] BREAST [facility] BILATERAL DIGITAL DIAGNOSTIC MAMMOGRAM TOMOSYNTHESIS WITH CAD: 04/20/2022 HISTORY: Multiple Diagnoses / SEE TECH NOTE /priors available for comparison Multiple Diagnoses. RESULT: TECHNIQUE: The study was acquired using full field digital technology and interpreted from soft copy. Digital Breast Tomosynthesis (DBT) images were obtained and used to assist in the interpretation of this examination. Current study was also evaluated with a Computer Aided Detection (CAD). Comparison is made to exams dated: 05/03/2016 mammogram, 11/01/2016 mammogram - [facility], and 04/20/2016 mammogram - [place] [facility]. The tissue of both breasts is extremely dense, which lowers the sensitivity of mammography. No significant masses, calcifications, or other findings are seen in either breast. IMPRESSION: NEGATIVE There is no abnormality seen in the left breast to correspond with the palpable abnormality, however, clinical followup is recommended. There is no mammographic evidence of malignancy. LIMITED ULTRASOUND OF LEFT BREAST: 04/20/2022 RESULT: Comparison is made to exams dated: 05/03/2016 mammogram, 11/01/2016 mammogram - [facility], and 04/20/2016 mammogram - [facility]. Real-time ultrasound of the left breast 2-3 o'clock region was performed. Bland scale images of the real-time examination were reviewed. IMPRESSION: NEGATIVE There is no sonographic evidence of malignancy. There is no abnormality seen in the left breast to correspond with the palpable abnormality at 2 o'clock which is consistent with normal fibroglandular tissue, however, clinical followup is recommended. Return to annual mammogram screening schedule is recommended. Bereket jasso/arpita:04/20/2022 16:35:39 Multiple national specialty organizations have released breast cancer screening guidelines for women at average risk for developing breast cancer - guidelines that are based on both evidence and opinion, yet differ on when to start and how often to screen for breast cancer. With representation from Breast Imaging, Internal Medicine, Women's Health, Family Medicine, and Medical/Surgical Oncology, the [facility] has carefully reviewed the data and reached the following consensus: 1) All women should engage in shared decision-making with their providers to decide when to start and how often to screen; 2) All women should have the opportunity to start screening mammography at age 40; 3) For women ages 45-55, we recommend annual screening mammograms; 4) For women ages 55 and over, we support both the transition from an annual to a biennial interval if this aligns more with patient's values and preferences, or continuation with annual screening; 5) All women should discuss with their providers when to stop screening mammograms. Tariff Counsel(s): Michelle Barber, [facility]; Anayeli Oliver RT(R)(M), [facility] OVERALL STUDY BIRADS: 1 Negative Cleaner And Presser: Arpita Transcribe Date/Time: Apr 20 2022 3:38P Dictated by: BEREKET GANDHI MD This examination was interpreted and the report reviewed and electronically signed by: BEREKET GANDHI MD on Apr 20 2022 4:35PM EST [id number] Normal [facility] BREAST LTD LTon 04-20 [facility] US BREAST LTD LT * * *Final Report* * * DATE OF EXAM: Apr 20 2022 4:11PM [id number] - [facility] [employer] BREAST LTD LT / PROCEDURE REASON: multiple diagnoses * * * * Physician Interpretation * * * * #[id number] - [facility] SAEED Kennedy MIKA AJ #[id number] - [facility] US BREAST LTD LT BILATERAL DIGITAL DIAGNOSTIC MAMMOGRAM TOMOSYNTHESIS WITH CAD: 04/20/2022 HISTORY: Multiple Diagnoses / SEE TECH NOTE /priors available for comparison Multiple Diagnoses. RESULT: TECHNIQUE: The study was acquired using full field digital technology and interpreted from soft copy. Digital Breast Tomosynthesis (DBT) images were obtained and used to assist in the interpretation of this examination. Current study was also evaluated with a Computer Aided Detection (CAD). Comparison is made to exams dated: 05/03/2016 mammogram, 11/01/2016 mammogram - [facility], and 04/20/2016 mammogram - [facility]. The tissue of both breasts is extremely dense, which lowers the sensitivity of mammography. No significant masses, calcifications, or other findings are seen in either breast. IMPRESSION: NEGATIVE There is no abnormality seen in the left breast to correspond with the palpable abnormality, however, clinical followup is recommended. There is no mammographic evidence of malignancy. LIMITED ULTRASOUND OF LEFT BREAST: 04/20/2022 RESULT: Comparison is made to exams dated: 05/03/2016 mammogram, 11/01/2016 mammogram - [facility], and 04/20/2016 mammogram - [facility]. Real-time ultrasound of the left breast 2-3 o'clock region was performed. Bland scale images of the real-time examination were reviewed. IMPRESSION: NEGATIVE There is no sonographic evidence of malignancy. There is no abnormality seen in the left breast to correspond with the palpable abnormality at 2 o'clock which is consistent with normal fibroglandular tissue, however, clinical followup is recommended. Return to annual mammogram screening schedule is recommended. Bereket jasso/arpita:04/20/2022 16:35:39 Multiple national specialty organizations have released breast cancer screening guidelines for women at average risk for developing breast cancer - guidelines that are based on both evidence and opinion, yet differ on when to start and how often to screen for breast cancer. With representation from Breast Imaging, Internal Medicine, Women's Health, Family Medicine, and Medical/Surgical Oncology, the [facility] has carefully reviewed the data and reached the following consensus: 1) All women should engage in shared decision-making with their providers to decide when to start and how often to screen; 2) All women should have the opportunity to start screening mammography at age 40; 3) For women ages 45-55, we recommend annual screening mammograms; 4) For women ages 55 and over, we support both the transition from an annual to a biennial interval if this aligns more with patient's values and preferences, or continuation with annual screening; 5) All women should discuss with their providers when to stop screening mammograms. Tariff Counsel(s): Michelle Barber, [facility]; RT Gwendolyn(R)(M), [facility] OVERALL STUDY BIRADS: 1 Negative Cleaner And Presser: Arpita Transcribe Date/Time: Apr 20 2022 3:38P Dictated by : BEREKET GANDHI MD This examination was interpreted and the report reviewed and electronically signed by: BEREKET GANDHI MD on Apr 20 2022 4:35PM EST [id number] Normal [facility] CNOVon 03-01-2022 CNOV Office Visit (OBGYWM ) -- HOWARD HALL ([id number]) 1980 F Date Time Provider Department 03/01/22 3:30 PM FAITH CLEMENTS OBGYWM During your visit today, we recorded the following information about you: Blood pressure Weight 120/80 69.4 kg Faith Clements APRN.CNP 03/01/2022 4:30 PM Signed BREAST LUMP HISTORY: This is a 41 year old female Presents with breast mass left side, about 10 days Tenderness slight but feeling prick sensation Change in sizeNo Any history breast mass No Caffeine use Yes 1-2 cups/day Last [id number] normal Any previous breast surgery No Any family history breast disease/ breast cancer Yes OB History T2 L2 SAB0 IAB0 Ectopic0 Multiple0 Live Births2 PAST MEDICAL HISTORY Diagnosis Date - Abnormal laboratory test Pt was treated for abnl thyroid test 2001 for 6 months - Abnormal Pap smear of cervix 2012 [place] - Anemia - Anxiety - anxiety - History of pre-eclampsia in prior , currently PAST SURGICAL HISTORY Procedure Laterality Date - DILATION AND CURETTAGE DXAND/THER NONOBSTETRIC FAMILY HISTORY Problem Relation Age of Onset - Heart Mother CHF - other (anxiety) Mother - Cancer Father brain - other (anxiety) Father - other (anxiety) Sister - other (anxiety) Brother - Breast Cancer Paternal Aunt - other (leukemia) Maternal Uncle - Breast Cancer Maternal Aunt - Breast Cancer Paternal Aunt - Cancer Maternal Aunt stomach SOCIAL HISTORY Social History Tobacco Use - Smoking status: Current Every Day Smoker Packs/day: 0.50 Years: 15.00 Pack years: 7.50 Types: Cigarettes - Smokeless tobacco: Never Used Substance Use Topics - Alcohol use: Yes Comment: occasionally, but not while - Drug use: No PAST SURGICAL HISTORY Procedure Laterality Date - DILATION AND CURETTAGE DXAND/THER NONOBSTETRIC Current Outpatient Medications Medication Sig - citalopram (CELEXA) 20 mg tablet Take 1 tablet by mouth once daily. - IRON, FERROUS SULFATE, ORAL Take 27 mg by mouth once daily. - aspirin, enteric coated (ASPIRIN LOW DOSE) 81 mg EC tablet Take 1 tablet by mouth once daily. - Leowshbc-Fh-Fqu-Fe-FA ( VITAMIN) tab Take 1 tablet by mouth. No current facility-administered medications for this visit. Allergies As of Date: 03/01/2022 (No Known Allergies) Fully Assessed 03/01/2022 EXAMINATION: There is no concerning cervical, supraclavicular, or axillary lymphadenopathy. She has unilateral fibrocystic changes on the left. On the bilaterally are no dominant masses, skin changes or nipple discharge. IMPRESSION: left breast fibrocystic changes Pt is due for annual mammogram PLAN: A discussion was held with the patient and patient and mother who agrees with Imaging Faith Clements APRN.DOM Medical Decision Making: Problems: Low: Acute, uncomplicated illness or injury Data: Unique test(s) ordered: 2 Risk: Low: Low risk from testing/treatment Medical Decision Making Level: 3 - Low Referring Provider: SELF [200] Allergies As of Date: 03/01/2022 (No Known Allergies) Date Reviewed: 03/01/2022 Reviewed by: Ute Sarabia RN - Fully Assessed Reason for Visit: left breast lump [Other] Primary Visit Diagnosis:Fibrocystic breast changes, left [N60.12] Other Visit Diagnosis:Breast pain [N64.4] Order(s):US BREAST LTD LT [7985150] Order #: [id number] FUTURE [facility] DIAGNOSTIC BILAT [[id number]] Order #: [id number] FUTURE Prescriptions as of 03/01/2022 - citalopram (CELEXA) 20 mg tablet Take 1 tablet by mouth once daily. Problem List As Of Date 03/01/2022 Noted Resolved Antepartum multigravida of advanced maternal ag*02/09/2017 03/01/2022 Bleeding in early [O20.9] 02/09/2017 03/01/2022 History of anxiety [Z86.59] 02/09/2017 History of thyroid disorder [Z86.39] 02/09/2017 Tobacco use during , antepartum [O99.3*02/09/2017 03/01/2022 History of pre-eclampsia in prior , cu*02/09/2017 03/01/2022 Anemia during in third trimester [O99*06/30/2017 03/01/2022 Iron deficiency anemia secondary to inadequate *07/10/2017 Iron malabsorption [K90.9] 07/10/2017 Polyhydramnios in third trimester [O40.3XX0] 07/12/2017 03/01/2022 Medications Discontinued During This Encounter Prescriptions - aspirin, enteric coated (ASPIRIN LOW DOSE) 81 mg EC tablet (Discontinued) Take 1 tablet by mouth once daily. - Eurvlknv-Jn-Kdf-Fe-FA ( VITAMIN) tab (Discontinued) Take 1 tablet by mouth. - IRON, FERROUS SULFATE, ORAL (Discontinued) Take 27 mg by mouth once daily. Encounter Status:Closed by FAITH CLEMENTS on 03/01/22 Normal [facility] Vital Signs Date Time Vital Sign Value Performing Clinician Faci lity 01-08-2025 15:54-0400 Body temperature 97.3 [degF] Dr. David Michael DO Work Phone: [facility] 01-08-2025 15:54-0400 Diastolic blood pressure 90 mm[Hg] Dr. David Michael DO Work Phone: [facility] 01-08-2025 15:54-0400 Heart rate 100 /min Dr. David Michael DO Work Phone: [facility] 01-08-2025 15:54-0400 Respiratory rate 20 /min Dr. David Michael DO Work Phone: [facility] 01-08-2025 15:54-0400 SaO2% (BldA) [Mass fraction] 98 % Dr. David Michael DO Work Phone: [facility] 01-08-2025 15:54-0400 Systolic blood pressure 116 mm[Hg] Dr. David Michael DO Work Phone: [facility] 01-08-2025 14:02-0400 Body height 165.[address] David Michael DO Work Phone: [facility] 01-08-2025 14:02-0400 Body mass index (BMI) [Ratio] 24.2 kg/m2 Dr. David Michael DO Work Phone: [facility] 01-08-2025 14:02-0400 Body weight [address] David Michael DO Work Phone: [facility] 12-25-2024 16:04-0400 Body height 165.[address] David Michael DO Work Phone: [facility] 12-25-2024 16:04-0400 Body mass index (BMI) [Ratio] 24.5 kg/m2 Dr. David Michael DO Work Phone: [facility] 12-25-2024 16:04-0400 Body temperature 99.7 [degF] Dr. David Michael DO Work Phone: [facility] 12-25-2024 16:04-0400 Body weight 66.[address] David Michael DO Work Phone: [facility] 12-25-2024 16:04-0400 Diastolic blood pressure 104 mm[Hg] Dr. David Michael DO Work Phone: [facility] 12-25-2024 16:04-0400 Heart rate 90 /min Dr. David Michael DO Work Phone: [facility] 12-25-2024 16:04-0400 Respiratory rate 16 /min Dr. David Michael DO Work Phone: [facility] 12-25-2024 16:04-0400 SaO2% (BldA) [Mass fraction] 98 % Dr. David Michael DO Work Phone: [facility] 12-25-2024 16:04-0400 Systolic blood pressure 169 mm[Hg] Dr. David Michael DO Work Phone: [facility] 12-09-2024 14:01-0400 Body height 166.[address] David Michael DO Work Phone: [facility] 12-09-2024 14:01-0400 Body mass index (BMI) [Ratio] 24 kg/m2 Dr. David Michael DO Work Phone: [facility] 12-09-2024 14:01-0400 Body temperature 97.5 [degF] Dr. David Michael DO Work Phone: [facility] 12-09-2024 14:01-0400 Body weight 66.[address] David Michael DO Work Phone: [facility] 12-09-2024 14:01-0400 Diastolic blood pressure 92 mm[Hg] Dr. David Michael DO Work Phone: [facility] 12-09-2024 14:01-0400 Heart rate 93 /min Dr. David Michael DO Work Phone: [facility] 12-09-2024 14:01-0400 Respiratory rate 18 /min Dr. David Michael DO Work Phone: [facility] 12-09-2024 14:01-0400 SaO2% (BldA) [Mass fraction] 98 % Dr. David Michael DO Work Phone: [facility] 12-09-2024 14:01-0400 Systolic blood pressure 169 mm[Hg] Dr. David Michael DO Work Phone: [facility] 03-01-2022 15:48-0400 Body weight 69.4 kg Faith [place] PALEONTOLOGY TEACHER.RUBBERIZING MECHANIC Work Phone: [facility] 03-01-2022 15:48-0400 Diastolic blood pressure 80 mm[Hg] Faith [place] PALEONTOLOGY TEACHER.RUBBERIZING MECHANIC Work Phone: [facility] 03-01-2022 15:48-0400 Systolic blood pressure 120 mm[Hg] Faith Kathy PALEONTOLOGY TEACHER.RUBBERIZING MECHANIC Work Phone: [facility] Encounters Encounter Date Encounter Type Care Provider Facility Start: 01-08-2025 Non-patient / Non-visit Dr. Shilpa Castellon MD -[facility] Start: 01-08-2025 End: 01-08-2025 Admission to same day surgery center Dr. Feliciano Castellon [facility] Start: 01-08-2025 End: 01-08-[address] David Michael DO Work Phone: [facility] Work Phone: Start: 12-25-[address] Pastor Borja MD -[facility] Start: 12-25-2024 End: 12-25-[address] Arnaud Borja MD -[facility] Work Phone: Start: 12-25-2024 End: 12-25-[address] David Michael DO Work Phone: [facility] Work Phone: Start: 12-10-2024 End: 12-10-[address] Feliciano Castellon MD -[facility] Work Phone: Start: 12-10-2024 End: 12-10-[address] David Michael DO Work Phone: [facility] Work Phone: Start: 12-09-2024 End: 12-09-[address] Feliciano Castellon MD -[facility] Work Phone: Start: 12-09-2024 End: 12-10-2024 ambulatory David Michael Facility:[facility] Start: 12-04-2024 End: 12-04-[address] David Michael DO Work Phone: [facility] Work Phone: Start: 12-04-2024 End: 12-04-[address] David Michael DO -[facility] Work Phone: Start: 12-04-2024 End: 12-04-2024 ambulatory David Michael Facility:[facility] Start: 11-14-2024 End: 11-14-[address] David Michael DO -[facility] Start: 11-14-2024 End: 11-14-2024 ambulatory David Michael Facility:[facility] Start: 08-14-2023 End: 08-14-2023 Emergency department patient visit DAVID MICHAEL Facility:[facility] Start: 04-20-2022 End: 04-20-2022 ambulatory DAVID MICHAEL Facility:[facility] Start: 03-01-2022 End: 03-01-2022 ambulatory FAITH CLEMENTS Facility:[facility] Start: 03-01-2022 End: 03-01-2022 Patient encounter procedure Faith Clements PALEONTOLOGY TEACHER.RUBBERIZING MECHANIC Work Phone: OB/Gynecology Comment on above: Fibrocystic breast c hanges, left (Primary Dx); Breast pain Procedures Date Procedure Procedure Detail Performing Clinician Start: 01-08-2025 Plain chest X-ray Dr. David Michael DO Work Phone: Start: 01-08-2025 Implantation to cardiovascular system Dr Perlita Michael DO Work Phone: Start: 12-25-2024 Follicle stimulating hormone measurement Dr. David Michael DO Work Phone: Comment on above: FEMALE:Follicular: 1.4 - 18.1 mIU/mLMidc ycle: 3.4 - 33.4 mIU/mLLuteal: 1.5 - 9.1 mIU/mLPost Menopause: 23.0 - 116.3 mIU/mLMALE: 1.4 - 18.1 mIU/mL Start: 12-25-[address] Dvaid Michael DO Work Phone: Comment on above: FEMALE:Follicular: 1.9-12.5 mIU/mLMidcyc le: 8.7-76.3 mIU/mLLuteal: 0.5-16.9 mIU/mLPost Menopause: 15.9-54.0 mIU/mLMALE:20-70 Years: 1.5-9.3 mIU/mL>70 Years: 3.1-34.6 mIU/mL Start: 12-04-[address] David Michael DO Work Phone: Start: 12-04-[address] David prince DO Work Phone: Start: 11-14-2024 In-vitro immunologic test Dr. David prince DO Work Phone: Comment on above: QuantiFERON-TB Gold Plus is a qualitativ e indirect test forM tuberculosis infection (including disease) and isintended for use in conjunction with risk assessment,radiography, and other medical and diagnostic evaluations.The QuantiFERON-TB Gold Plus result is determined bysubtracting the Nil value from either TB antigen (Ag)value. The Mitogen tube serves as a control for the test. No response to M tub erculosis antigens detected.Infection with M tuberculosis is unlikely, but high riskindividuals should be considered for additional testing(ATS/IDSA/CDC Clinical Practice Guidelines, 2017). Thereference range is an Antigen minus Nil result of <0.35IU/mL.The specimen received for QuantiFERON testing was incubatedby the ordering institution. Specific procedures outlinedin our Directory of Services and in the package insert forthe QuantiFERON Gold (In Tube) test must be followed toenable for proper stimulation of cells for the productionof interferon gamma. Chemiluminescence immunoassaymethodologyPerformed at: [place] [id number] Director: Mendez Parmar PhD, Phone: [phone] Start: 04-20-2016 Mammography Faith Clements APRN.RUBBERIZING MECHANIC Work Phone: Plan of Treatment Date Care Activity Detail Author Start: 01-08-2025 Patient discharge [facility] Start: 01-08-2025 Fluoroscopic guidance [facility] Start: 12-25-2024 Urine test [facility] Start: 12-25-2024 Cancer Ag 15-3 [Pres ence] in Serum or Plasma [facility] Start: 12-25-2024 Cancer Ag 27-29 [Pre sence] in Serum or Plasma [facility] Start: 12-25-2024 CBC W Auto Different ial panel - Blood [facility] Start: 12-25-2024 Comprehensive metabo lic 2000 panel - Serum or Plasma [facility] Start: 12-25-2024 Follitropin and Lutr opin panel [Units/volume] - Serum or Plasma [facility] Start: 12-25-2024 [facility] Start: 12-04-2024 Digital breast tomosynthesis bilateral BREAST TOMOSYNTHESIS BI [facility] Start: 03-31-2022 Influenza vaccination INFLUENZA (#1) [facility] Start: 04-12-2021 HPV TESTING HPV TESTING [facility] Start: 04-12-2021 PAP TESTING PAP TESTING [facility] Start: 2020 Mammography MAMMOGRAM [facility] Start: 12-24-1999 Urine microalbumin profile DTAP,TDAP ,TD (1 - Tdap) [facility] Start: 1992 Adult depression scr eening assessment DEPRESSION SCREENING [facility] Start: 1986 PNEUMOCOCCAL (1 - PCV) PNEUMOCOCCAL (1 - PCV) [facility] Start: 06-25-1981 COVID-19 VACCINE (#1) COVID-19 VACCI NE (#1) [facility] Alanine aminotransfe rase [Enzymatic activity/volume] in Serum or Plasma [facility] Albumin [Mass/volume ] in Serum or Plasma [facility] Alkaline phosphatase [Enzymatic activity/volume] in Serum or Plasma [facility] Anion gap in Serum o r Plasma [facility] Bilirubin, total measurement [facility] BUN/Creatinine ratio [facility] Calcium [Mass/volume ] in Serum or Plasma [facility] Carbon dioxide, tota l [Moles/volume] in Central venous blood [facility] Creatinine [Mass/vol ume] in Serum or Plasma [facility] End: 03-31-2023 Diagnostic mammography computer-aided detcj [facility] DIAGNOSTIC BILAT Radiology Routine Fibrocystic breast changes, left Breast pain 1 Occurrences starting 03/01/2022 until 03/31/2023 [facility] Work Phone: Comment on above: 1 Occurrences starti ng 03/01/2022 until 03/31/2023 Erythrocyte mean corpuscular volume determination [facility] Follicle stimulating hormone measurement [facility] Glucose [Mass/volume ] in Serum or Plasma [facility] Hematocrit [Volume Fraction] of Blood [facility] Hemoglobin [Mass/vol ume] in Blood [facility] Leukocytes [#/volume ] in Blood [facility] Lutropin [Units/volu me] in Serum or Plasma [facility] Mean corpuscular hemoglobin concentration determination [facility] Mean corpuscular hemoglobin determination [facility] Measurement of renal function [facility] Neutrophil count [facility] Neutrophil percent differential count [facility] Patient referral [facility] Work Phone: Platelets [#/volume] in Blood [facility] Positron emission tomography with computed tomography [facility] Potassium measurement [facility] Red blood cell count [facility] Red cell distributio n width determination [facility] Serum chloride measurement [facility] Sodium measurement [facility] Total protein measurement [facility] Urea nitrogen [Mass/volume] in Serum or Plasma [facility] End: 03-31-2023 Us breast uni real time with image limited US BREAST LTD LT Radiology Routine Fibrocystic breast changes, left Breast pain 1 Occurrences starting 03/01/2022 until 03/31/2023 [facility] Work Phone: Comment on above: 1 Occurrences starti ng 03/01/2022 until 03/31/2023 US Heart [facility] Immunizations Immunization Date Immunization Notes Care Provider Shan field 08-18-2017 influenza, injectabl e, quadrivalent, preservative free Dr. David Michael DO Work Phone: [facility] Payers Date Payer Category Payer Self-pay 2022 Medicaid [id number] 2019 Medicaid [employer] [id number] 2019-Present [phone] [address] [place] [address] Medicaid [id number] 2019 Medicaid [id number] Self-pay SELF PAY INSURANCE [id number] Unknown [id number] Unknown [id number] Unknown [id number] Unknown [id number] Unknown [id number] Unknown [id number] Unknown [id number] Unknown [id number] Unknown [id number] Unknown [id number] Social History Date Type Detail Facility Start: 07-13-2015 Tobacco smoking stat us [facility] Smokes tobacco daily [facility] History of tobacco use Cigarette Smoker [facility] Start: 07-13-2015 Cigarettes smoked current (pack per day) - Reported 0.5 [facility] Start: 07-13-2015 Tobacco use and exposure Smokeless tobacco non-user [facility] Start: 03-01-2022 Alcohol intake Current drinke r of alcohol (finding) [facility] Start: 02-09-2017 History SDOH Alcohol Comment occasionally, but not while [facility] Start: 1980 Sex Assigned At Female C [facility] Start: 02-19-2022 End: 03-01-2022 Exposure to SARS-CoV-2 (event) Not sure [facility] Work Phone: Start: 12-06-2024 End: 01-02-2025 Tobacco smoking status [facility] Current Light tobacco smoker [facility] Start: 06-18-2014 Alcohol Alcohol [facility] NEGATED: Highlighted row Not [facility] Goals Date Patient Goal Desired Activity /State Mental Status Date Assessment Result Facility 01-08-2025 Cognitive function Voice/Name [facility] Work Phone: Clinical Notes 07-12-2017 to 01-08-2025 Note Date & Type Note Facility 01-08-2025 Consult note [facility] 01-08-2025 Consult note Note Date/Time January 08, 2025 1:53pm [facility] Medical Records Department [facility] [place] [address] Pre-Anesthesia Evaluation 01/08/25 1352 MR#: [id number] Acct: [id number] Name: HOWARD HALL Rep #:[id number] : 1980 44 From: Clyde Starks MD PCP: Dr. David Michael, DO Status:REG SDC Y Race: C Location: [place] [address]-1 ASA Classification* ASA Classification ASA Classification: 2 Assessment & Plan Anesthesia* Anesthesia Assessment Anesthesia Assessment: Discussed sedation and/or anesthesia options, risks, benefits, and alternatives with patient/parents/legal guardian/POA. Questions invited. The patient/parents/legal guardian/POA seems to understand and agrees to proceedwith anesthesia plan. Reviewed the physical assessment, medical history, allergy history and patient home medications list prior to surgery/procedure/anesthetic and documented any changes. Performed airway and anesthesia risk assessments. Anesthesia Type Anesthesia Type: MAC Anesthesia Focused Assessment* Airway Assessment Mouth opens: >3 cm Mallampati Score: II Labs Anesthesia Preop lab: CBC WBC 6.1 K/mm3 (4.4-11.0) 12/25/24 17:03 12/25/24 RBC 4.24 M/mm3 (4.2-5.4) 12/25/24 17:03 12/25/24 Hgb 12.3 g/dL (12.0-15.0) 12/25/24 17:03 12/25/24 Hct 36.2 % (37-47) L 12/25/24 17:03 12/25/24 Plt Count 258 K/mm3 (150-450) 12/25/24 17:03 12/25/24 CHEMISTRY Potassium 4.0 mmol/L (3.3-5.1) 12/25/24 17:03 12/25/24 Sodium 141 mmol/L (133-145) 12/25/24 17:03 12/25/24 BUN 14 mg/dL (4-19) 12/25/24 17:03 12/25/24 Creatinine 0.84 mg/dL (0.70-1.20) 12/25/24 17:03 12/25/24 Glucose 95 mg/dL (70-99) 12/25/24 17:03 12/25/24 POC Glucose 89 mg/dL (70-110) 06/16/14 14:36 06/16/14 TSH 1.770 uIU/mL (0.300-4.200) 11/14/24 16:06 10/29 02/21 COAG PT 12.6 SECONDS (11.7-14.9) 08/15/17 18:00 Urine Test Negative Negative 12/25/24 17:15 12/25/24 Pre-Assessment Diagnosis/Proposed Procedure Planned Operative Procedure(s): (R) Insertion, Vascular Port right possible left Anesthesia History 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 When Was Last Pacemaker Check QUESTION #4 FULL TEXT: You/Your Family Experience fever (hyperthermia) with Anesthesia Last Oral Intake Last Oral intake: Last Oral Intake NPO since Meds taken in AM with sips of water? 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: PONV - snack bar cashier Female Yes 01/02/25 13:24 HX of Motion Sickness Yes 01/02/25 13:24 HX of N/V After Surgery No 01/02/25 13:24 Non-Smoker No 01/02/25 13:24 Duration of Surgery greater No 01/02/25 13:24 than 60 minutes Number of Risk Factors 2 01/02/25 13:24 PONV Score Moderate Risk 01/02/25 13:24 Height & Weight Height & Weight: Anesthesia: Height & Weight Height 5 ft 5 in 12/25/24 16:04 Respiratory Assessment Respiratory Assessment - snack bar cashier: Respiratory Tract Infection Hx - snack bar cashier Hx Respiratory Tract Infection No 01/02/25 13:24 STOP Sleep Apnea STOP Sleep Apnea - snack bar cashier: STOP Sleep Apnea - snack bar cashier Hx Hypertension No 01/02/25 13:24 Hx Sleep Apnea No 01/02/25 13:24 CPAP BIPAP Do you snore loudly (louder Yes 01/02/25 13:24 than talking or can be heard Do you often feel tired/ Yes 01/02/25 13:24 fatigued/ sleepy during daytime? Has anyone observed you stop Yes 01/02/25 13:24 breathing during sleep? STOP Results Positive 01/02/25 13:24 QUESTION #5 FULL TEXT : Do you snore loudly (louder than talking or can be heard through closed doors)? 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 Specify any problems Hx of Preganancy in last 3 N/A 01/02/25 13:24 Months Nurse Filling Out Transfusion NBUCHER 01/02/25 13:24 & Questions: Date: 01/02/25 01/02/25 13:24 Time: 13:26 01/02/25 13:24 Patient unable to answer at this time (ie. 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 History - snack bar cashier: /Reproductive Hx- snack bar cashier Hx Now No 01/02/25 13:24 Gestational Age (in weeks): EDC: Hx Hx Para Hx Section SAB No 01/02/25 13:24 Active Medications Active Medications: Current Medications Generic Name Dose Route Start Last Admin Trade Name Freq PRN Reason Stop Dose Admin Lactated Ringer's 1,000 mls @ 15 mls/hr 01/08/25 14:00 IV .Q48H MARITA PFSH Medical History Post-menopausal Wears glasses Cancer Depression Anemia Smoker History of edema Regional lymph node metastasis present Anxiety Breast cancer Home Medications ?Medication ?Instructions ?Recorded ?Last Taken ?Type citalopram 40 mg tablet 40 mg PO QDAY 12/09/24 Unkno wn History Allergy/AdvReac Type Severity Reaction Status Date / Time No Known Allergies Allergy Verified 01/02/25 13:23 Family History Aunt Breast cancer Aunt Breast cancer Aunt Breast cancer Father Brain tumor Uncle Cancer Mother Heart disease Surgical History History of wisdom tooth extraction Social History Smoking Status: Light Smoker (<10/day) Tobacco: How many years used: 20 alcohol intake: never Review of Systems (Anesthesia) ROS Narrative System reviewed and no additional complaints, except as documented. 01/08/25 3623 <Electronically signed by Clyde Starks MD > Date _ Clyde Starks MD Cosigner Signature: Date CC: ~ Signed [facility] Work Phone: [phone]) 937-356206-11-2025 Radiology Diagnostic study note [facility] Imaging Services [address] [place] [address] [id number] Chest 1 View MR#: [id number] Acct: [id number] Name: HOWARD HALL Rep #: [id number] : 1980 F 44 From: Chilo Fleming MD PCP: Dr. David Michael, DO Status: [facility] Study:Chest 1 View Date of Exam: Exam# [id number] Ordering Dr: Feliciano Burris MD PROCEDURE: CHEST 1 VIEW 01/08/2025 REASON FOR EXAM: PORT PLACEMENT TECHNIQUE: Frontal view of the chest. COMPARISON: None FINDINGS: Hardware: A right-sided port a catheter has been placed with tip at the junctionof the superior vena cava and right atrium. EKG electrodes are seen. Heart: The heart size is normal. Lungs: The lungs are clear. Bones: Degenerative changes are identified within the thoracic spine. Other: RAD/Chest 1 View IMPRESSION: The tip of the right port a catheter is at the junction of the superior vena cava and right atrium. Reading Location: [facility] CC: Dr. Feliciano Castellon MD; Dr. David Michael DO ~ Cleaner And Presser: Signed [facility]06-11-2025 Consult note [facility] Medical Records Department [address] [place] [address] Anesthesia Postop Eval II 01/08/25 1530 MR#: [id number] Acct: [id number] Name: HOWARD HALL Rep #:[id number] : 1980 44 From: Clyde Starks MD PCP: Dr. David Michael DO Status:REG SDC Y Race: C Location: [place] [address] Anesthesia Postop Eval I Sum Postop Eval Completion status Anesthesia document: Postop Eval 1 completed: Yes Anesthesia Postop Eval I Summary Anesthesia Postop Eval I Summary: Anesthesia Postop Eval I: Assessment Summary Airway patent Yes 01/08/25 15:08 [email or web address] [email or web address] Spontaneous unlabored Yes 01/08/25 15:08 POLISH [email or web address] respirations Mental status Awake 01/08/25 15:08 POLISH [email or web address].JDEF nausea No 01/08/25 15:08 POLISH [email or web address].JDEF Vomiting No 01/08/25 15:08 POLISH [email or web address].JDEF Anesthesia Postop Eval I: Fluid Summary Crystalloid volume administer 300 01/08/25 15:08 POLISH [email or web address].JDEF (ml) Colloids volume administered ( ml) Blood Product volume administered (ml) Total IV fluid infused 300 01/08/25 15:08 POLISH [email or web address].JDEF Anesthesia Postop Eval I: Summary Notes Anesthesia Complication No 01/08/25 15:08 POLISH [email or web address].JDEF Anesthesia Complication Comment: Post-operative progress note Anesthesia: Postop Eval II Evaluation Mental status: Awake Pain Level: 0 nausea: No Vomiting: No 01/08/25 1530 > Date _ Clyde Stacy Signature: Date CC: ~ Signed [facility]06-11-2025 Discharge summary [facility] Medical Records Department [address] [place] [address] Instructions for Home/Discharge Instructions 01/08/25 1507 MR#: [id number] Acct: [id number] Name: HOWARD HALL Rep #:[id number] : 1980 44 From: Feliciano salazar MD PCP: Dr. David Michael, DO Status:REG [facility] Discharge Instructions Procedure Gallbladder Diet Discharge Diet: Light diet - advance as tolerated Activity Discharge Activity: May Not Drive (for 2-3 days or while taking narcotic pain medications.) and - (Do not drive, work heavy equipment or sign legal documents for 24 hours.) May shower in (days): 1 Lifting Restrictions: 20 lbs for 2 weeks Additional Activity Instructions:: Pain medication may cause nausea. You should typically eat lightfoods as you take your pain medications. Pain medication may also cause constipation. If this is a problem for you, please discuss with yourdoctor. Dressing / Incision Call your doctor if your incision/area has: Continuous Slow Oozing, Sudden Increased Bleeding, Increased Pain/ Swelling, Increased Redness and Foul Smelling Discharge Call your doctor if you observe: Fever of 101 or Higher Suture Line Care: Avoid Pulling/Pushing and Avoid Pinching/Bending Remove Dressing in: 2 days Additional Dressing/Incision Instructions:: Leave operative bandaids on for 2 days. When you removedressing, leave Steri-Strips on until your follow-up appointment, or until the Steri-Strips fall off on their own. Follow Up Care Please Follow Up With: Feliciano Castellon MD When: Please call to schedule 2 week follow up appointment. [phone] Test Results: Test results from this visit will be discussed in further detail at your follow- up appointment, if applicable. Discharge Plan Admission Attending Provider: Feliciano Castellon Primary Care Provider: David Mcihael Instructions Print Language: Bangladeshi Discharge Orders/Prescriptions Prescriptions: No Action citalopram 40 mg tablet 40 mg PO QDAY Referrals / Follow Up: David Michael DO [Primary Care Provider] - Disposition Disposition (needs filled in before D/C Order can be placed): Home, Self Care 01/08/25 0630Feliciano Castellon MD CC: Dr. David Michael DO ~ Signed [facility]06-11-2025 Consult note [facility] Medical Records Department [address] [facility] [place] [address] Anesthesia Postop Eval I 01/08/25 1506 MR#: [id number] Acct: [id number] Name: HOWARD HALL Falguni Rep #:[id number] : 1980 44 From: Rebecca Mathews CRNA PCP: Dr. David Michael DO Status:REG SDC Y Race: C Location: [place] [address] Anesthesia: Postop Eval I Current Vital Signs Temperature: 97.7 F Pulse Rate: 96 Blood Pressure: 140/89 Respiratory Rate: 20 Pulse Ox: 97 Oxygen Delivery Method: Room Air Assessment Airway patent: Yes Spontaneous unlabored respirations: Yes Mental status: Awake nausea: No Vomiting: No Anesthesia Complication: No Fluid Hydration Crystalloid volume administer (ml): 300 Total IV fluid infused: 300 Progress Note Anesthesia document: Postop Eval 1 completed: Yes 01/08/25 1508 POLISH MAKER> Date _ Rebecca Mathews POLISH MAKER Cosigner Signature: Date CC: ~ Signed [facility]06-11-2025 Procedure note [facility] Medical Records Department [address] [place] [address] Operative Report 01/08/25 1506 MR#: [id number] Acct: [id number] Name: HOWARD HALL Rep #:[id number] : 1980 44 From: Feliciano salazar MD PCP: Dr. David Michael, DO Status:[facility] Location: [place] [address] Operative Report (Standard) Operative Information Date of Procedure: 01/08/25 Pre-Operative Diagnosis: Need for vascular access port for chemotherapy Post-Operative Diagnosis: Same Surgery/Procedure Performed: Ultrasound and fluoroscopy guided right chest port placement with utilization of right IJ director of workforce development: No Type of Anesthesia: Local MAC RN Documented Start/Stop Times: Operation Date: 01/08/25 14:20 Case Time Into Pre-Op 01/08/25 13:56 Out of Pre-Op 01/08/25 14:25 Anesthesia Start 01/08/25 14:32 Into Room 01/08/25 14:32 Procedure Start 01/08/25 14:44 Procedure End 01/08/25 14:56 Anesthesia End 01/08/25 15:00 Out of Room 01/08/25 15:00 Into Recovery 01/08/25 15:03 Into Phase II Recovery Procedure Start Time: 14:44 Procedure Stop Time: 14:56 Select all DRAINS/GRAFTS/IMPLANTS that apply: Implanted device Implanted device details: 8 Syriac PowerPort Estimated Blood Loss: 5 Specimen collected: No Description of surgery: After obtaining informed consent patient was brought back to the operating room MAC anesthesia was induced and the right chest and neck were prepped in normal sterile fashion. Ultrasound was used to evaluate both IJs and the right IJ was selected. Next, using a needle, the right IJ was accessed allie guidewire was passed on into the superior vena cava under fluoroscopy guidance. A small incision was made over the puncture site and the dilator introducer was placed over the guidewire. Next this was capped and the pocket was made for the port. 1% lidocaine with epinephrine was injected in the proposed port site. An incision was made with scalpel. Electrocautery was used to make a pocket under the skin and subcutaneous tissue. Hemostasis was obtained. Next, the catheter was tunneled up to the neck incision site and placed through the introducer. The peel-away introducer was removed and theposition of the catheter was confirmed on fluoroscopy. Next, the catheter was trimmed and attached to the port with the locking device. Interrupted 2-0 Vicryl sutures were used to anchor the port to t he chest wall and then the port was placed inside the pocket. The pocket was then flushed with saline and the port irrigated with saline. There was good blood return and the port flushed easily. Next, heparinwas injected into the port. The skin was closed with subcutaneous interrupted 3-0 Vicryl sutures. A single 3-0 Vicryl sutures placed under the skin at the neck incision site. Steri-Strips were placed as well as op sites. Patient tolerated procedure well, was taken to PACU in stable condition. Chest x-ray will be obtained. Surgical Findings: None Complications Complications: No Admit VTE Documentation VTE Mechan Device Prophylaxis: SCD's 01/08/25 1507 Cosigner Signature (if applicable): CC: Dr. Feliciano Castellon MD; Dr. David Michael DO~ Signed [facility]06-11-2025 History and physical note [facility] Medical Records Department [address] [place] [address] H&P Exam - Surgical 01/08/25 1420 MR#: [id number] Acct: [id number] Name: HOWARD HALL Rep #:[id number] : 1980 44 From: Feliciano salazar MD PCP: Dr. David Michael DO Status:[facility] Location: [address] HPI - General HPI Narrative HOWARD HALL, is a 44 F who presents for port placement. The patient was found to have breast cancer with metastasis to the lymph nodes. She is here forport placement for neoadjuvant chemotherapy [facility] Medical History Post-menopausal Wears glasses Cancer Depression Anemia Smoker History of edema Regional lymph node metastasis present Anxiety Breast cancer Home Medications ?Medication ?Instructions ?Recorded ?Last Taken ?Type citalopram 40 mg tablet 40 mg PO QDAY 12/09/2401/07 History Allergy/AdvReac Type Severity Reaction Status Date / Time No Known Allergies Allergy Verified 01/08/25 14:01 Family History Aunt Breast cancer Aunt Breast cancer Aunt Breast cancer Father Brain tumor Uncle Cancer Mother Heart disease Surgical History History of wisdom tooth extraction Social History Smoking Status: Light Smoker (<10/day) Tobacco: How many years used: 20 alcohol intake: never ROS Constitutional Constitutional: Denies anorexia, chills or fatigue Eyes Eyes: Denies blurry vision ENT HEENT: Denies abnormal hearing Cardiovascular Cardiovascular: Denies chest pain Respiratory/Chest Respiratory/Chest: Denies cough or dyspnea Gastrointestinal Gastrointestinal: Denies abdominal pain Genitourinary Genitourinary: Denies change in urinary stream Musculoskeletal Musculoskeletal: Denies abnormal gait Integumentary Integumentary: Denies jaundice or new lesions Neurologic Neurologic: Denies abnormal gait Psychiatric Psychiatric: Denies anxiety Vital Signs Vital Signs Vital Signs: 01/08/25 14:02 01/08/25 14:02 Temperature 98.2 F Temperature Source Temporal Pulse Rate 94 Respiratory Rate 18 Respiratory Pattern Normal Blood Pressure 157/97 H Blood Pressure Mean 117 Blood Pressure Source Monitor Blood Pressure Position Sitting Blood Pressure Location Right Arm Pulse Ox 100 Oxygen Delivery Method Room Air Weight Weight: 145 lb 8.081 oz Body Mass Index (BMI) 24.2 Physical Exam Const oriented x3 and no apparent distress Resp normal respiratory effort Cardio regular rate and regular rhythm GI soft to palpation and non-tender Extremity normal to inspection Assessment & Plan Assessment/Plan (1) Breast cancer: QUALIFIERS: Breast location: overlapping sites of breast Estrogenreceptor status: positive Patient sex: female Laterality: left Qualified Code(s): C50.812 - Malignant neoplasm of overlapping sites ofleft female breast; Z17.0 - Estrogen receptor positive status [ER+] (2) Encounter for insertion of venous access port: PLAN: Plan I discussed right chest port placement with the patient in detail. I discussed the procedure as well as the risks including but not limited to bleeding, infection, pneumothorax, line infection or DVT. Patient understands all the risks and is willing to proceed. Feliciano Castellon MD Pager: [facility] [address] [place] [address] Office: 01/08/25 1420 Cosigner Signature (if applicable): CC: Dr. Feliciano Castellon MD; Dr. David Michael, DO~ Signed [facility]06-11-2025 Consult note [facility] Medical Records Department [address] [place] [address] Pre-Anesthesia Evaluation 01/08/25 1352 MR#: [id number] Acct: [id number] Name: HOWARD HALL Rep #:[id number] : 1980 44 From: Clyde Starks MD PCP: Dr. David Michael, DO Status:REG SDC Y Race: C Location: [place] [address] ASA Classification* ASA Classification ASA Classification: 2 Assessment & Plan Anesthesia* Anesthesia Assessment Anesthesia Assessment: Discussed sedation and/or anesthesia options, risks, benefits, and alternatives with patient/parents/legal guardian/POA. Questions invited. The patient/parents/legal guardian/POA seems to understand and agrees to proceedwith anesthesia plan. Reviewed the physical assessment, medical history, allergy history and patient home medications list prior to surgery/procedure/anesthetic and documented any changes. Performed airway and anesthesia risk assessments. Anesthesia Type Anesthesia Type: MAC Anesthesia Focused Assessment* Airway Assessment Mouth opens: >3 cm Mallampati Score: II Labs Anesthesia Preop lab: CBC WBC 6.1 K/mm3 (4.4-11.0) 12/25/24 17:03 12/25/24 RBC 4.24 M/mm3 (4.2-5.4) 12/25/24 17:03 12/25/24 Hgb 12.3 g/dL (12.0-15.0) 12/25/24 17:03 12/25/24 Hct 36.2 % (37-47) L 12/25/24 17:03 12/25/24 Plt Count 258 K/mm3 (150-450) 12/25/24 17:03 12/25/24 CHEMISTRY Potassium 4.0 mmol/L (3.3-5.1) 12/25/24 17:03 12/25/24 Sodium 141 mmol/L (133-145) 12/25/24 17:03 12/25/24 BUN 14 mg/dL (4-19) 12/25/24 17:03 12/25/24 Creatinine 0.84 mg/dL (0.70-1.20) 12/25/24 17:03 12/25/24 Glucose 95 mg/dL (70-99) 12/25/24 17:03 12/25/24 POC Glucose 89 mg/dL (70-110) 06/16/14 14:36 06/16/14 TSH 1.770 uIU/mL (0.300-4.200) 11/14/24 16:06 10/29 02/21 COAG PT 12.6 SECONDS (11.7-14.9) 08/15/17 18:00 Urine Test Negative Negative 12/25/24 17:15 12/25/24 Pre-Assessment Diagnosis/Proposed Procedure Planned Operative Procedure(s): (R) Insertion, Vascular Port right possible left Anesthesia History 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 When Was Last Pacemaker Check QUESTION #4 FULL TEXT: You/Your Family Experience fever (hyperthermia) with Anesthesia Last Oral Intake Last Oral intake: Last Oral Intake NPO since Meds taken in AM with sips of water? 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: PONV - snack bar cashier Female Yes 01/02/25 13:24 HX of Motion Sickness Yes 01/02/25 13:24 HX of N/V After Surgery No 01/02/25 13:24 Non-Smoker No 01/02/25 13:24 Duration of Surgery greater No 01/02/25 13:24 than 60 minutes Number of Risk Factors 2 01/02/25 13:24 PONV Score Moderate Risk 01/02/25 13:24 Height & Weight Height & Weight: Anesthesia: Height & Weight Height 5 ft 5 in 12/25/24 16:04 Respiratory Assessment Respiratory Assessment - snack bar cashier: Respiratory Tract Infection Hx - snack bar cashier Hx Respiratory Tract Infection No 01/02/25 13:24 STOP Sleep Apnea STOP Sleep Apnea - snack bar cashier: STOP Sleep Apnea - snack bar cashier Hx Hypertension No 01/02/25 13:24 Hx Sleep Apnea No 01/02/25 13:24 CPAP BIPAP Do you snore loudly (louder Yes 01/02/25 13:24 than talking or can be heard Do you often feel tired/ Yes 01/02/25 13:24 fatigued/ sleepy during daytime? Has anyone observed you stop Yes 01/02/25 13:24 breathing during sleep? STOP Results Positive 01/02/25 13:24 QUESTION #5 FULL TEXT : Do you snore loudly (louder than talking or can be heard through closeddoors)? 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 Specify any problems Hx of Preganancy in last 3 N/A 01/02/25 13:24 Months Nurse Filling Out Transfusion NBUCHER 01/02/25 13:24 & Questions: Date: 01/02/25 01/02/25 13:24 Time: 13:26 01/02/25 13:24 Patient unable to answer at this time (ie. 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 History - snack bar cashier: /Reproductive Hx- snack bar cashier Hx Now No 01/02/25 13:24 Gestational Age (in weeks): EDC: Hx Hx Para Hx Section SAB No 01/02/25 13:24 Active Medications Active Medications: Current Medications Generic Name Dose Route Start Last Admin Trade Name Freq PRN Reason Stop Dose Admin Lactated Ringer's 1,000 mls @ 15 mls/hr 01/08/25 14:00 IV .Q48H MARITA PFSH Medical History Post-menopausal Wears glasses Cancer Depression Anemia Smoker History of edema Regional lymph node metastasis present Anxiety Breast cancer Home Medications ?Medication ?Instructions ?Recorded ?Last Taken ?Type citalopram 40 mg tablet 40 mg PO QDAY 12/09/24 Unkno wn History Allergy/AdvReac Type Severity Reaction Status Date / Time No Known Allergies Allergy Verified 01/02/25 13:23 Family History Aunt Breast cancer Aunt Breast cancer Aunt Breast cancer Father Brain tumor Uncle Cancer Mother Heart disease Surgical History History of wisdom tooth extraction Social History Smoking Status: Light Smoker (<10/day) Tobacco: How many years used: 20 alcohol intake: never Review of Systems (Anesthesia) ROS Narrative System reviewed and no additional complaints, except as documented. 01/08/25 1353 > Date _ Clyde Adamson Signature: Date CC: ~ Signed [facility]05-28-2025 Progress [facility] [address] [place], [place] [address]luis [place] [address] OFFICE VISIT Date of Service: 12/25/24 3660 MR#: [id number] Acct: [id number] Name: HOWARD HALL Rep #: [id number] : 1980 From: Arnaud parr MD Age/Sex: 44/F Location: [facility] [place] Status: Signed HPI Subjective Date of Service 12/25/24 Chief Complaint Breast cancer History of Present Illness 44-year-old female menopausal status to be determined (patient last menstrual period was about 1 year earlier and was experiencing some hot flashes) who presented with an enlarging painless mass in the left breast first noted August 2024. Has no first-degree relatives with breast cancer. She has a remote history of a biopsy from the contralateral right breast benign. December 04, 2024 diagnostic mammogram: FINDINGS: MAMMOGRAM: TISSUE DENSITY: The breast tissue is extremely dense which lowers the sensitivity of mammography. The mammogram demonstrates that the patient has dense breasts. Supplemental screening with whole breast ultrasound or MRI may be considered for further evaluation. Right breast: No significant masses, calcifications or other abnormalities are identified. Left breast: There is a triangle skin marker indicating the area of palpable concern in the lower inner left breast. Underlying the skin marker is a high density irregular mass with associated calcifications. The abnormal calcificationsand mass involve the entire medial left breast, as well as extending centrally. There is an additional separate smaller group of suspicious fine pleomorphic calcifications in the upper outer left breast at posterior depth, measuring 2.0 x 0.6 x 2.1 cm (AP by TR by CC). ULTRASOUND: Ultrasound performed of the area of palpable concern in the left breast demonstrates an irregular hypoechoic mass with calcifications and flow peripherally extending from 9:00 - 11:00, 5 cm from the nipple measuring 5.5 x 3.5 x 2.0 cm. There is another irregular hypoechoic mass at 9 o'clock 1 cm from the nipple measuring 1.3 x 1.2 x 0.9 cm. This might represents a satellite lesion. There is a smaller irregular hypoechoic mass with calcifications at 1 o'clock, 5cm from the nipple measuring 1.1 x 0.9 x 0.8 cm. There is a cyst at 1 o'clock 4 cm from the nipple measuring 0.7 x 0.6 x 0.3 cm. There are 2 prominent left axillary lymph nodes with diffuse cortical thickening, the largest measures 2.3 x 1.3 x 0.7 cm with cortical thickness of 0.4 cm. The other abnormal left axillary lymph node measures 1.5 x 0.6 x 0.7 cm. IMPRESSION: 1. Suspicious irregular left breast mass with calcifications at 9 o'clock-11 o'clock, 5 cm from thenipple. Recommend tissue sampling with ultrasound-guided core needle biopsy. 2. Suspicious left breast mass at 1 o'clock 5 cm from the nipple. Recommend tissue sampling with ultrasound guided core needle biopsy. 3. Suspicious left breast mass at 9 o'clock 1 cm from the nipple. 4. Suspicious left breast calcifications in the upper-outer left breast at posterior depth. Recommend tissue sampling with stereotactic guided core needle biopsy. 5. Abnormal left axillary lymph nodes. Recommend tissue sampling of the largerlymph node with ultrasound-guided core needle biopsy. OVERALL FINAL ASSESSMENT: BIRADS 5 HIGHLY SUGGESTIVE OF MALIGNANCY. December 10, 2024: A. 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 The p40 immunostain shows loss of the myoepithelial layers in the invasive tumor and is present in the areas of DCIS. ESTROGEN RECEPTOR (ER): Positive, strong immunoreactivity in 100% of tumor cells PROGESTERONE RECEPTOR (IN): Positive, strong immunoreactivity in 100% of tumor cells HER2/RYAN IHC: Positive, (Score 3+) KI67 IHC: 40% B. Left axilla, lymph node, biopsy: * Metastatic mammary carcinoma (See note) Note: The pancytokeratin stain is positive supporting the diagnosis. [facility] Medical History (Updated 12/25/24 @ 16:[address] Arnaud Borja MD) Regional lymph node metastasis present Anxiety Breast cancer Family History (Updated 12/25/24 @ 16:02 by Kristie Rao) Aunt Breast cancer Aunt Breast cancer Aunt Breast cancer Father Brain tumor Uncle Cancer Mother Heart disease Social History (Updated 12/25/24 @ 16:03 by Kristie Rao) Smoking Status: Light Smoker (<10/day) Tobacco: How many years used: 20 alcohol intake: never ROS Constitutional Constitutional: Reports systems reviewed and no addt'l complaints, except as documented; Denies fatigue, fever(s) or weight loss Eyes Eyes: Reports systems reviewed and no addt'l complaints, except as documented; Denies change in vision ENT HEENT: Reports systems reviewed and no addt'l complaints, except as documented; Denies mouth lesions Cardiovascular Cardiovascular: Reports systems reviewed and no addt'l complaints, except as documented; Denies chest pain with activity or edema Respiratory/Chest Respiratory/Chest: Reports systems reviewed and no addt'l complaints, except as documented; Denies cough or dyspnea on exertion Gastrointestinal Gastrointestinal: Reports systems reviewed and no addt'l complaints, except as documented; Denies change in bowel habits Genitourinary Genitourinary: Reports systems reviewed and no addt'l complaints, except as documented and as per HPI Musculoskeletal Musculoskeletal: Reports systems reviewed and no addt'l complaints, except as documented; Denies back pain Integumentary Integumentary: Reports systems reviewed and no addt'l complaints, except as documented; Denies new lesions Neurologic Neurologic: Reports systems reviewed and no addt'l complaints, except as documented; Denies focal weakness, headache(s) or paresthesias Psychiatric Psychiatric: Reports systems reviewed and no addt'l complaints, except as documented and anxiety Endocrine Endocrinology: Reports systems reviewed and no addt'l complaints, except as documented, as per HPI and flushing Hematologic/Lymphatic Hematologic/Lymphatic: Reports systems reviewed and no addt'l complaints, exceptas documented; Denies lymphadenopathy Allergic/Immunologic Allergic/Immunologic: Reports systems reviewed and no addt'l complaints, except as documented Intake Vital Signs 12/09/24 14:01 12/25/24 15:57 12/25/24 16:04 Height 5 ft 5.5 in 5 ft 5.5 in 5 ft 5 in Weight: 66.678 kg 66.848 kg BMI 24.0 24.5 BP 169/92 H 169/104 H Blood Pressure Location Rt brachial Lt brachial Position Sitting Sitting Respiration 18 16 Pulse 93 90 Pulse Source Monitor Monitor Temp 97.5 F L 99.7 F H Temperature Source Temporal Artery Pulse Oximetry (%) 98 98 Oxygen Delivery Method room air room air Intake Is patient in pain?: No Allergies No Known Allergies Allergy (Verified 12/25/24 15:59) Medications ?Medication ?Instructions ?Recorded ?Confirmed ?Type citalopram 40 mg tablet 40 mg PO QDAY 12/09/2412/25 History Have you fallen in the past year?: No Central Venous Access Central Venous Access: No Exam Physical Exam Narrative ECOG 0 Const alert, oriented x3 and no apparent distress General Appearance: cooperative and comfortable HEENT normocephalic Face and Sinus: normal facial exam Mouth: oral and palatal mucosa normal Eyes General Eye: normal appearance of both eyes Neck no lymphadenopathy and no JVD Lymph Lymphatic: no lymphadenopathy noted Chest Breast/Axilla Palpation: normal palpation of the axillae and other Other Details: The left breast is replaced with a large mass, nipple is retracted, no skin infiltration or inflammatory changes, themass appears to be tethered to the underlying pectoral muscle. Resp clear to auscultation bilaterally Cardio regular rate and regular rhythm Jugular Venous Distention: Negative for JVD GI soft to palpation, non-tender and non-distended; Negative for hepatosplenomegaly Back/Spine no thoracic nor lumbar tenderness Extremity no clubbing, cyanosis or edema Skin no rashes or lesions noted and no wounds Neuro oriented x3, CN's II-XII intact bilaterally, moves all extremities and no focal motor deficits Coordination / Balance: [id number] test normal Speech: speech normal Gait (Neuro): normal gait Psych cooperative Mood & Affect: anxious Coding Level of Care Code Off vis,new,level 5 Exam Problem Focused Diagnoses Malignant neoplasm of overlapping sites of left breast in female, estrogen receptor positive C50.812; Z17.0 Breast location: overlapping sites of breast Estrogen receptor status: positive Patient sex: female Laterality: left Regional lymph node metastasis present C77.9 Assessment and Plan Assessment and Plan (1) Breast cancer: Status: Acute Qualifiers: Breast location: overlapping sites of breast Estrogen receptor status: positive Patient sex: femaleLaterality: left Qualified Code(s): C50.812 - Malignant neoplasm of overlapping sites of left female breast; Z17.0 - Estrogen receptor positive status [ER+] (2) Regional lymph node metastasis present: Status: Acute Orders: Orders CBC W/Diff, Automated Today C50.919 - Malignant neoplasm of unspecified site of unspecified female breast, C77.9 - Secondary and unspecified malignant neoplasm of lymph node, unspecified Comprehensive Metabolic Profil Today C50.919 - Malignant neoplasm of unspecified site of unspecified female breast, C77.9 - Secondary and unspecified malignant neoplasm of lymph node, unspecified CA 15-3 Today C50.919 - Malignant neoplasm of unspecified site of unspecified female breast, C77.9 - Secondary and unspecified malignant neoplasm of lymph node, unspecified CA 27.29 Today C50.919 - Malignant neoplasm of unspecified site of unspecified female breast, C77.9- Secondary and unspecified malignant neoplasm of lymph node, unspecified FSH and LH Today C50.919 - Malignant neoplasm of unspecified site of unspecified female breast, C77.9 - Secondary and unspecified malignant neoplasm of lymph node, unspecified ,Urine Today C50.919 - Malignant neoplasm of unspecified site of unspecified female breast, C77.9 - Secondary and unspecified malignant neoplasm of lymph node, unspecified Plan 44-year-old female probably perimenopausal (to be determined) with clinical stage at least 3B (T4 with satellite nodules in the same breast, at least N1, MX) 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 Chronic comorbid conditions: Smoker, and anxiety. Plan: Based on NCCN guidelines and up-to-date review of treatment of breast cancer: 1. Patient needs further staging for distant metastatic disease based on which prognosis and treatment can be planned. 2. Obtain baseline CBC, chemistry panel, FSH and LH, urine test and tumor markers. 3. Cardiac echo for preimmune therapy assessment. 4. Central venous access will be requested. Patient was seen with his family, impression and plan discussed, follow-up after PET scan. Arnaud Borja MD Blade Groover, [facility] Divisions of Medical Oncology & Hematology Department of Internal Medicine [place] [phone] This note was generated using a voice recognition system software. Although it was reviewed by the author prior to finalization, it may still contain incorrect words, spelling, and punctuation that were not noted when reviewing prior to saving. If a clinically significant typo or inaccurately typedphrase is noted, please notify the author. Clinical Quality Measures Falls Risk Screening/Assistive Devices Have you fallen in the past year?: No 12/25/24 1655 xavi MD> Date _ Arnaud Borja MD Cosigner Signature: Date (if applicable) CC: Dr. Feliciano Castellon MD; Dr. Dvaid Michael, DO ~ [facility]05-28-2025 Progress note Author Arnaud Borja [facility] Note Date/Time December 25, 2024 4:55p m [facility] [address] [address] OFFICE VISIT Date of Service: 12/25/24 1555 MR#: [id number] Acct: [id number] Name: VICKEY,HOWARD Montes De Oca Rep #: [id number] : 1980 From: Arnaud parr MD Age/Sex: 44/F Location: [facility] Status: Signed HPI Subjective Date of Service 12/25/24 Chief Complaint Breast cancer History of Present Illness 44-year-old female menopausal status to be determined (patient last menstrual period was about 1 year earlier and was experiencing some hot flashes) who presented with an enlarging painless mass in the left breast first noted August 2024. Has no first-degree relatives with breast cancer. She has a remote history of a biopsy from the contralateral right breast benign. December 04, 2024 diagnostic mammogram: FINDINGS: MAMMOGRAM: TISSUE DENSITY: The breast tissue is extremely dense which lowers the sensitivity of mammography. The mammogram demonstrates that the patient has dense breasts. Supplemental screening with whole breast ultrasound or MRI may be considered for further evaluation. Right breast: No significant masses, calcifications or other abnormalities are identified. Left breast: There is a triangle skin marker indicating the area of palpable concern in the lower inner left breast. Underlying the skin marker is a high density irregular mass with associated calcifications. The abnormal calcifications and mass involve the entire medial left breast, as well as extending centrally. There is an additional separate smaller group of suspicious fine pleomorphic calcifications in the upper outer left breast at posterior depth, measuring 2.0 x 0.6 x 2.1 cm (AP by TR by CC). ULTRASOUND: Ultrasound performed of the area of palpable concern in the left breast demonstrates an irregular hypoechoic mass with calcifications and flow peripherally extending from 9:00 - 11:00, 5 cm from the nipple measuring 5.5 x 3.5 x 2.0 cm. There is another irregular hypoechoic mass at 9 o'clock 1 cm from the nipple measuring 1.3 x 1.2 x 0.9 cm. This might represents a satellite lesion. There is a smaller irregular hypoechoic mass with calcifications at 1 o'clock, 5cm from the nipple measuring 1.1 x 0.9 x 0.8 cm. There is a cyst at 1 o'clock 4 cm from the nipple measuring 0.7 x 0.6 x 0.3 cm. There are 2 prominent left axillary lymph nodes with diffuse cortical thickening, the largest measures 2.3 x 1.3 x 0.7 cm with cortical thickness of 0.4 cm. The other abnormal left axillary lymph node measures 1.5 x 0.6 x 0.7 cm. IMPRESSION: 1. Suspicious irregular left breast mass with calcifications at 9 o'clock-11 o'clock, 5 cm from the nipple. Recommend tissue sampling with ultrasound-guided core needle biopsy. 2. Suspicious left breast mass at 1 o'clock 5 cm from the nipple. Recommend tissue sampling with ultrasound guided core needle biopsy. 3. Suspicious left breast mass at 9 o'clock 1 cm from the nipple. 4. Suspicious left breast calcifications in the upper-outer left breast at posterior depth. Recommend tissue sampling with stereotactic guided core needle biopsy. 5. Abnormal left axillary lymph nodes. Recommend tissue sampling of the largerlymph node with ultrasound-guided core needle biopsy. OVERALL FINAL ASSESSMENT: BIRADS 5 HIGHLY SUGGESTIVE OF MALIGNANCY. December 10, 2024: A. 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 The p40 immunostain shows loss of the myoepithelial layers in the invasive tumor and is present in the areas of DCIS. ESTROGEN RECEPTOR (ER): Positive, strong immunoreactivity in 100% of tumor cells PROGESTERONE RECEPTOR (IN): Positive, strong immunoreactivity in 100% of tumor cells HER2/RYAN IHC: Positive, (Score 3+) KI67 IHC: 40% B. Left axilla, lymph node, biopsy: * Metastatic mammary carcinoma (See note) Note: The pancytokeratin stain is positive supporting the diagnosis. [facility] Medical History (Updated 12/25/24 @ 16:[address] Arnaud Borja MD) Regional lymph node metastasis present Anxiety Breast cancer Family History (Updated 12/25/24 @ 16:02 by Kristie Rao) Aunt Breast cancer Aunt Breast cancer Aunt Breast cancer Father Brain tumor Uncle Cancer Mother Heart disease Social History (Updated 12/25/24 @ 16:03 by Kristie Rao) Smoking Status: Light Smoker (<10/day) Tobacco: How many years used: 20 alcohol intake: never ROS Constitutional Constitutional: Reports systems reviewed and no addt'l complaints, except as documented; Denies fatigue, fever(s) or weight loss Eyes Eyes: Reports systems reviewed and no addt'l complaints, except as documented; Denies change in vision ENT HEENT: Reports systems reviewed and no addt'l complaints, except as documented; Denies mouth lesions Cardiovascular Cardiovascular: Reports systems reviewed and no addt'l complaints, except as documented; Denies chest pain with activity or edema Respiratory/Chest Respiratory/Chest: Reports systems reviewed and no addt'l complaints, except as documented; Denies cough or dyspnea on exertion Gastrointestinal Gastrointestinal: Reports systems reviewed and no addt'l complaints, except as documented; Denies change in bowel habits Genitourinary Genitourinary: Reports systems reviewed and no addt'l complaints, except as documented and as per HPI Musculoskeletal Musculoskeletal: Reports systems reviewed and no addt'l complaints, except as documented; Denies back pain Integumentary Integumentary: Reports systems reviewed and no addt'l complaints, except as documented; Denies new lesions Neurologic Neurologic: Reports systems reviewed and no addt'l complaints, except as documented; Denies focal weakness, headache(s) or paresthesias Psychiatric Psychiatric: Reports systems reviewed and no addt'l complaints, except as documented and anxiety Endocrine Endocrinology: Reports systems reviewed and no addt'l complaints, except as documented, as per HPI and flushing Hematologic/Lymphatic Hematologic/Lymphatic: Reports systems reviewed and no addt'l complaints, exceptas documented; Denies lymphadenopathy Allergic/Immunologic Allergic/Immunologic: Reports systems reviewed and no addt'l complaints, except as documented Intake Vital Signs 12/09/24 14:01 12/25/24 15:57 12/25/24 16:04 Height 5 ft 5.5 in 5 ft 5.5 in 5 ft 5 in Weight: 66.678 kg 66.848 kg BMI 24.0 24.5 BP 169/92 H 169/104 H Blood Pressure Location Rt brachial Lt brachial Position Sitting Sitting Respiration 18 16 Pulse 93 90 Pulse Source Monitor Monitor Temp 97.5 F L 99.7 F H Temperature Source Temporal Artery Pulse Oximetry (%) 98 98 Oxygen Delivery Method room air room air Intake Is patient in pain?: No Allergies No Known Allergies Allergy (Verified 12/25/24 15:59) Medications ?Medication ?Instructions ?Recorded ?Confirmed ?Type citalopram 40 mg tablet 40 mg PO QDAY 12/09/2412/25 History Have you fallen in the past year?: No Central Venous Access Central Venous Access: No Exam Physical Exam Narrative ECOG 0 Const alert, oriented x3 and no apparent distress General Appearance: cooperative and comfortable HEENT normocephalic Face and Sinus: normal facial exam Mouth: oral and palatal mucosa normal Eyes General Eye: normal appearance of both eyes Neck no lymphadenopathy and no JVD Lymph Lymphatic: no lymphadenopathy noted Chest Breast/Axilla Palpation: normal palpation of the axillae and other Other Details: The left breast is replaced with a large mass, nipple is retracted, no skin infiltration or inflammatory changes, the mass appears to be tethered to the underlying pectoral muscle. Resp clear to auscultation bilaterally Cardio regular rate and regular rhythm Jugular Venous Distention: Negative for JVD GI soft to palpation, non-tender and non-distended; Negative for hepatosplenomegaly Back/Spine no thoracic nor lumbar tenderness Extremity no clubbing, cyanosis or edema Skin no rashes or lesions noted and no wounds Neuro oriented x3, CN's II-XII intact bilaterally, moves all extremities and no focal motor deficits Coordination / Balance: [id number]-lj-[id number] test normal Speech: speech normal Gait (Neuro): normal gait Psych cooperative Mood & Affect: anxious Coding Level of Care Code Off vis,new,level 5 Exam Problem Focused Diagnoses Malignant neoplasm of overlapping sites of left breast in female, estrogen receptor positive C50.812; Z17.0 Breast location: overlapping sites of breast Estrogen receptor status: positive Patient sex: female Laterality: left Regional lymph node metastasis present C77.9 Assessment and Plan Assessment and Plan (1) Breast cancer: Status: Acute Qualifiers: Breast location: overlapping sites of breast Estrogen receptor status: positive Patient sex: female Laterality: left Qualified Code(s): C50.812 - Malignant neoplasm of overlapping sites of left female breast; Z17.0 - Estrogen receptor positive status [ER+] (2) Regional lymph node metastasis present: Status: Acute Orders: Orders CBC W/Diff, Automated Today C50.919 - Malignant neoplasm of unspecified site of unspecified female breast, C77.9 - Secondary and unspecified malignant neoplasm of lymph node, unspecified Comprehensive Metabolic Profil Today C50.919 - Malignant neoplasm of unspecified site of unspecified female breast, C77.9 - Secondary and unspecified malignant neoplasm of lymph node, unspecified CA 15-3 Today C50.919 - Malignant neoplasm of unspecified site of unspecified female breast, C77.9 - Secondary and unspecified malignant neoplasm of lymph node, unspecified CA 27.29 Today C50.919 - Malignant neoplasm of unspecified site of unspecified female breast, C77.9 - Secondary and unspecified malignant neoplasm of lymph node, unspecified FSH and LH Today C50.919 - Malignant neoplasm of unspecified site of unspecified female breast, C77.9 - Secondary and unspecified malignant neoplasm of lymph node, unspecified ,Urine Today C50.919 - Malignant neoplasm of unspecified site of unspecified female breast, C77.9 - Secondary and unspecified malignant neoplasm of lymph node, unspecified Plan 44-year-old female probably perimenopausal (to be determined) with clinical stage at least 3B (T4 with satellite nodules in the same breast, at least N1, MX) 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 Chronic comorbid conditions: Smoker, and anxiety. Plan: Based on NCCN guidelines and up-to-date review of treatment of breast cancer: 1. Patient needs further staging for distant metastatic disease based on which prognosis and treatment can be planned. 2. Obtain baseline CBC, chemistry panel, FSH and LH, urine test and tumor markers. 3. Cardiac echo for preimmune therapy assessment. 4. Central venous access will be requested. Patient was seen with his family, impression and plan discussed, follow-up after PET scan. Arnaud Borja MD Blade Groover, [facility] Divisions of Medical Oncology & Hematology Department of Internal Medicine [place] [id number] This note was generated using a voice recognition system software. Although it was reviewed by the author prior to finalization, it may still contain incorrect words, spelling, and punctuation that were not noted when reviewing prior to saving. If a clinically significant typo or inaccurately typed phrase is noted, please notify the author. Clinical Quality Measures Falls Risk Screening/Assistive Devices Have you fallen in the past year?: No 12/25/24 6097 <Electronically signed by Arnaud hurley MD> Date _ Arnaud Borja MD Cosigner Signature: Date (if applicable) CC: Dr. Feliciano Castellon MD; Dr. David Michael, ~ [facility] [employer] Work Phone: 1(608) 727-110205-12-2025 Evaluation note* Diagnosis Onset Date Resolution Status Admit Date Left breast mass acute November 1:07pm [facility] Work Phone: 1(780) 232-889005-12-2025 Evaluation note* Diagnosis Onset Date Resolution Status Admit Date Left breast mass acute November 1:07pm Left breast mass acute November 12:05pm [facility] Work Phone: 1(954) 174-305305-12-2025 Evaluation note* Diagnosis Onset Date Resolution Status Admit Date Left breast mass deleted November 1:07pm Left breast mass deleted November 12:05pm Breast cancer acute December 25, 2 025 3:54pm Regional lymph node metastas is present acute December 25, 2024 3 :54pm [facility] Work Phone: [phone]) 494-761005-12-2025 Evaluation note* Diagnosis Onset Date Resolution Status Admit Date Left breast mass deleted November 1:07pm Left breast mass deleted November 12:05pm Breast cancer acute December 25, 2 025 3:54pm Regional lymph node metastas is present acute December 25, 2024 3 :54pm Breast cancer acute January 08, 2025 1:42pm Encounter for insertion of venous access port acute January 08 1:42pm [facility] Work Phone: 1(561) 998-699705-08-2025 Radiology Diagnostic study note [facility] Imaging Services [address] [place], [place] [address] Breast Limited Unilateral MR#: [id number] Acct: [id number] Name: HOWARD HALL Rep #: [id number] : 1980 F 43 From: Kamilah Sarah MD PCP: Dr. David Michael, Status: REG CLI Study:Breast Limited Unilateral Date of Exam: 12/04/24 Exam# [id number] Ordering Dr: David Michael DO EXAM: BREAST LIMITED UNILATERAL; DIAG MAMM W/CAD, BILAT; BILAT BRST MIKA STAND ALONE N/A; 12/04/2024 CLINICAL HISTORY: 43-year-old female presents with palpable concern in the left breast. Family history of breast cancer in paternal aunt. TECHNIQUE: Bilateral Diagnostic digital breast tomosynthesis with 2D and 3D images. Computer aided detection. Also, left breast ultrasound was performed. COMPARISON: Prior exam(s) dated 04/20/2022, 11/01/2016, 04/20/2016. FINDINGS: MAMMOGRAM: TISSUE DENSITY: The breast tissue is extremely dense which lowers the sensitivity of mammography. The mammogram demonstrates that the patient has dense breasts. Supplemental screening with whole breast ultrasound or MRI may be considered for further evaluation. Right breast: No significant masses, calcifications or other abnormalities are identified. Left breast: There is a triangle skin marker indicating the area of palpable concern in the lower inner left breast. Underlying the skin marker is a high density irregular mass with associated calcifications. The abnormal calcificationsand mass involve the entire medial left breast, as well as extending centrally. There is an additional separate smaller group of suspicious fine pleomorphic calcifications in the upper outer left breast at posterior depth, measuring 2.0 x 0.6 x 2.1 cm (AP by TR by CC). ULTRASOUND: Ultrasound performed of the area of palpable concern in the left breast demonstrates an irregular hypoechoic mass with calcifications and flow peripherally extending from 9:00 - 11:00, 5 cm from the nipple measuring 5.5 x 3.5 x 2.0 cm. There is another irregular hypoechoic mass at 9 o'clock 1 cm from the nipple measuring 1.3 x 1.2 x 0.9 cm. This might represents a satellite lesion. There is a smaller irregular hypoechoic mass with calcifications at 1 o'clock, 5cm from the nipple measuring 1.1 x 0.9 x 0.8 cm. There is a cyst at 1 o'clock 4 cm from the nipple measuring 0.7 x 0.6 x 0.3 cm. There are 2 prominent left axillary lymph nodes with diffuse cortical thickening, the largest measures 2.3 x 1.3 x 0.7 cm with cortical thickness of 0.4 cm. The other abnormal left axillary lymph node measures 1.5 x 0.6 x 0.7 cm. US/Breast Limited Unilateral IMPRESSION: 1. Suspicious irregular left breast mass with calcifications at 9 o'clock-11 o'clock, 5 cm from thenipple. Recommend tissue sampling with ultrasound-guided core needle biopsy. 2. Suspicious left breast mass at 1 o'clock 5 cm from the nipple. Recommend tissue sampling with ultrasound guided core needle biopsy. 3. Suspicious left breast mass at 9 o'clock 1 cm from the nipple. 4. Suspicious left breast calcifications in the upper-outer left breast at posterior depth. Recommend tissue sampling with stereotactic guided core needle biopsy. 5. Abnormal left axillary lymph nodes. Recommend tissue sampling of the largerlymph node with ultrasound-guided core needle biopsy. OVERALL FINAL ASSESSMENT: BIRADS 5 HIGHLY SUGGESTIVE OF MALIGNANCY. RECOMMENDATION: Core needle biopsy is recommended. A letter with findings and recommendations will be mailed to the patient. Reading Location: [id number] CC: Dr. David Michael, DO ~ Cleaner And Presser: Signed [facility]09-21-2022 NoteHNO ID: [id number] Author: RT Heidi(R) Service: ? Author Type: Show Girl Type: Progress Notes Filed: 04/20/2022 4:42 PM Note Text: Radiology Service Progress Note PATIENT NAME: Howard Hall DATE OF SERVICE: April 20, 2022 TIME: 4:41 PM PATIENT IDENTITY VERIFICATION COMPLETED USING TWO (2) IDENTIFIERS: Name and Date of confirmed by patient verbally. FALL SCREENING: Has the patient had 2 falls in the last year or 1 fall with injury or currently using an Ambulatory Assistive Device (Walker, Cane, Wheelchair, Crutches, etc.)? No PATIENT GENDER DATA: Female. status: : No status: NO. PATIENT RELEVANT IMPLANT DATA REVIEWED: Not Applicable RADIOLOGY DEPARTMENT: Ultrasound PERIPHERAL IV DATA: Not applicable SIGNED BY: RT Heidi(R) April 20, 2022 4:41 [facility]08-02-2022 NoteHNO ID: [id number] Author: Faith Clements APRN.RUBBERIZING MECHANIC Service: ? Author Type: Nurse Practitioner Type: Progress Notes Filed: 03/01/2022 4:30 PM Note Text: BREAST LUMP HISTORY: This is a 41 year old female Presents with breast mass left side, about 10 days Tenderness slight but feeling prick sensation Change in sizeNo Any history breast mass No Caffeine use Yes 1-2 cups/day Last [id number] normal Any previous breast surgery No Any family history breast disease/ breast cancer Yes OB History T2 L2 SAB0 IAB0 Ectopic0 Multiple0 Live Births2 PAST MEDICAL HISTORY Diagnosis Date - Abnormal laboratory test Pt was treated for abnl thyroid test 2001 for 6 months - Abnormal Pap smear of cervix 2012 [facility] - Anemia - Anxiety - anxiety - History of pre-eclampsia in prior , currently PAST SURGICAL HISTORY Procedure Laterality Date - DILATION AND CURETTAGE DXAND/THER NONOBSTETRIC FAMILY HISTORY Problem Relation Age of Onset - Heart Mother CHF - other (anxiety) Mother - Cancer Father brain - other (anxiety) Father - other (anxiety) Sister - other (anxiety) Brother - Breast Cancer Paternal Aunt - other (leukemia) Maternal Uncle - Breast Cancer Maternal Aunt - Breast Cancer Paternal Aunt - Cancer Maternal Aunt stomach SOCIAL HISTORY Social History Tobacco Use - Smoking status: Current Every Day Smoker Packs/day: 0.50 Years: 15.00 Pack years: 7.50 Types: Cigarettes - Smokeless tobacco: Never Used Substance Use Topics - Alcohol use: Yes Comment: occasionally, but not while - Drug use: No PAST SURGICAL HISTORY Procedure Laterality Date - DILATION AND CURETTAGE DXAND/THER NONOBSTETRIC Current Outpatient Medications Medication Sig - citalopram (CELEXA) 20 mg tablet Take 1 tablet by mouth once daily. - IRON, FERROUS SULFATE, ORAL Take 27 mg by mouth once daily. - aspirin, enteric coated (ASPIRIN LOW DOSE) 81 mg EC tablet Take 1 tablet by mouth once daily. - Ifhavfgv-Jn-Dnu-Fe-FA ( VITAMIN) tab Take 1 tablet by mouth. No current facility-administered medications for this visit. Allergies As of Date: 03/01/2022 (No Known Allergies) Fully Assessed 03/01/2022 EXAMINATION: There is no concerning cervical, supraclavicular, or axillary lymphadenopathy. She has unilateral fibrocystic changes on the left. On the bilaterally are no dominant masses, skin changes or nipple discharge. IMPRESSION: left breast fibrocystic changes Pt is due for annual mammogram PLAN: A discussion was held with the patient and patient and mother who agrees with Imaging Faith Clements APRN.DOM Medical Decision Making: Problems: Low: Acute, uncomplicated illness or injury Data: Unique test(s) ordered: 2 Risk: Low: Low risk from testing/treatment Medical [facility] Making [facility]: [facility] of Present illness Narrative* Faith Clements APRN.DOM - 03/01/2022 3:45 PM EDT BREAST LUMP HISTORY: This is a 41 year old female Presents with breast mass left side, about 10 days Tenderness slight but feeling prick sensation Change in sizeNo Any history breast mass No Caffeine use Yes 1-2 cups/day Last [id number] normal Any previous breast surgery No Any family history breast disease/ breast cancer Yes OB History T2 L2 SAB0 IAB0 Ectopic0 Multiple0 Live Births2 PAST MEDICAL HISTORY Diagnosis Date Abnormal laboratory test Pt was treated for abnl thyroid test 2001 for 6 months Abnormal Pap smear of cervix 2012 [facility] Anemia Anxiety anxiety History of pre-eclampsia in prior , currently PAST SURGICAL HISTORY Procedure Laterality Date DILATION & CURETTAGE DX&/THER NONOBSTETRIC FAMILY HISTORY Problem Relation Age of Onset Heart Mother CHF other (anxiety) Mother Cancer Father brain other (anxiety) Father other (anxiety) Sister other (anxiety) Brother Breast Cancer Paternal Aunt other (leukemia) Maternal Uncle Breast Cancer Maternal Aunt Breast Cancer Paternal Aunt Cancer Maternal Aunt stomach SOCIAL HISTORY Social History Tobacco Use Smoking status: Current Every Day Smoker Packs/day: 0.50 Years: 15.00 Pack years: 7.50 Types: Cigarettes Smokeless tobacco: Never Used Substance Use Topics Alcohol use: Yes Comment: occasionally, but not while Drug use: No PAST SURGICAL HISTORY Procedure Laterality Date DILATION & CURETTAGE DX&/THER NONOBSTETRIC Current Outpatient Medications Medication Sig citalopram (CELEXA) 20 mg tablet Take 1 tablet by mouth once daily. IRON, FERROUS SULFATE, ORAL Take 27 mg by mouth once daily. aspirin, enteric coated (ASPIRIN LOW DOSE) 81 mg EC tablet Take 1 tablet by mouth once daily. Dlfvfblg-Zh-Ruz-Fe-FA ( VITAMIN) tab Take 1 tablet by mouth. No current facility-administered medications for this visit. Allergies As of Date: 03/01/2022 (No Known Allergies) Fully Assessed 03/01/2022 EXAMINATION: There is no concerning cervical, supraclavicular, or axillary lymphadenopathy. She has unilateral fibrocystic changes on the left. On the bilaterally are no dominant masses, skin changes or nipple discharge. IMPRESSION: left breast fibrocystic changes Pt is due for annual mammogram PLAN: A discussion was held with the patient and patient and mother who agrees with Imaging Faith Clements APRN.DOM Medical Decision Making: Problems: Low: Acute, uncomplicated illness or injury Data: Unique test(s) ordered: 2 Risk: Low: Low risk from testing/treatment Medical Decision Making Level: 3 - Low [facility] History of Past illness Narrative* Problem Noted Date Resolved Date Polyhydramnios in third trimester 07/12/2017 03/01/2022 Overview: 07/12/17 - Confirmed by 3rd trimester ultrasound (WALT = 26, EFW = 94%ile). NSTs with each visit, u/s q 3 weeks. IOL at 39 weeks. Lesly Rincon CNM Anemia during in third trimester 06/3003/01/2022 Overview: 06/30/17 - start oral iron & folic acid, repeat cbc 2 weeks & if not improving consider IV iron - KJ Antepartum multigravida of advanced maternal age 0702/09/2017 03/01/2022 Overview: 02/09/2017Patient is 36 years old. Advanced Maternal age discussed. Pt refused handouts on Genetic Amniocentesis and [facility]. [facility] handout on Early Screening In given and discussed. Level II Ultrasound and Dr. Apodaca's services discussed. Patient considering Materna 21 test.TKRN Bleeding in early 02/09/2017 0808/2021 Overview: 02/09/2017 Patient states she has notted pink spotting when she has wiped for the past 1-2 weeks. She has pelvic and back pain that she rates a 2 on the pain scale. She had called in yesterday and quantitative HCG's were ordered. Patient was unable to go to lab yesterday due to work hours. Discussed with Dr Ocasio. Offered patient appointment today and she accepted.TKRN Tobacco use during , antepartum 017 03/01/2022 Overview: 02/09/2017Pt smokes 1/2 pack a day of cigarettes, down from 1 ppd. Discussed risks of smoking during . Advised pt to quit. TKRN History of pre-eclampsia in prior , currently 02/09/2017 03/01/2022 documented as of this encounter (statuses as of 03/01/2022) [facility] Rebecca Mathews [facility] Note Date/Time January 08, 2025 3:08 pm [facility] Medical Records Department [address] [place] [address] Anesthesia Postop Eval I 01/08/25 1506 MR#: [id number] Acct: [id number] Name: HOWARD HALL Rep #:[id number] : 1980 44 From: Rebecca Mathews CRNA PCP: Dr. David Michael, DO Status:REG SDC Y Race: C Location: [place] [address] Anesthesia: Postop Eval I Current Vital Signs Temperature: 97.7 F Pulse Rate: 96 Blood Pressure: 140/89 Respiratory Rate: 20 Pulse Ox: 97 Oxygen Delivery Method: Room Air Assessment Airway patent: Yes Spontaneous unlabored respirations: Yes Mental status: Awake nausea: No Vomiting: No Anesthesia Complication: No Fluid Hydration Crystalloid volume administer (ml): 300 Total IV fluid infused: 300 Progress Note Anesthesia document: Postop Eval 1 completed: Yes 01/08/25 1508 <Electronically signed by Rebecca rice CRNA> Date _ Rebecca Mathews CRNA Cosigner Signature: Date CC: ~ Signed [facility] Work Phone: Consult note Author Clyde Starks [facility] Note Date/Time January 08, 2025 3:30 pm [facility] Medical Records Department [address] [place] [address] Anesthesia Postop Eval II 01/08/25 1530 MR#: [id number] Acct: [id number] Name: HOWARD HALL Rep #:[id number] : 1980 44 From: Clyde Starks MD PCP: Dr. David Michael, DO Status:REG SDC Y Race: C Location: AC01-1 Anesthesia Postop Eval I Sum Postop Eval Completion status Anesthesia document: Postop Eval 1 completed: Yes Anesthesia Postop Eval I Summary Anesthesia Postop Eval I Summary: Anesthesia Postop Eval I: Assessment Summary Airway patent Yes 01/08/25 15:08 POLISH MAKER.JDEF Spontaneous unlabored Yes 01/08/25 15:08 POLISH MAKER.JDEF respirations Mental status Awake 01/08/25 15:08 POLISH MAKER.JDEF nausea No 01/08/25 15:08 POLISH MAKER.JDEF Vomiting No 01/08/25 15:08 POLISH MAKER.JDEF Anesthesia Postop Eval I: Fluid Summary Crystalloid volume administer 300 01/08/25 15:08 POLISH MAKER.JDEF (ml) Colloids volume administered ( ml) Blood Product volume administered (ml) Total IV fluid infused 300 01/08/25 15:08 POLISH MAKER.JDEF Anesthesia Postop Eval I: Summary Notes Anesthesia Complication No 01/08/25 15:08 POLISH MAKER.JDEF Anesthesia Complication Comment: Post-operative progress note Anesthesia: Postop Eval II Evaluation Mental status: Awake Pain Level: 0 nausea: No Vomiting: No 01/08/25 1530 <Electronically signed by Clyde Starks MD > Date _ Clyde Starks MD Cosigner Signature: Date CC: ~ Signed [facility] Work Phone: Consult note Author Rebecca Mathews [facility] Note Date/Time January 08, 2025 3:54 pm [facility] Medical Records Department [address] [place] [address] Anesthesia Postop Eval I 01/08/25 1553 MR#: [id number] Acct: [id number] Name: HOWARD HALL Rep #:[id number] : 1980 44 From: Rebecca Mathews CRNA PCP: Dr. David Michael, DO Status:REG SDC Y Race: C Location: [place] [address] Anesthesia: Postop Eval I Current Vital Signs Temperature: 97.3 F Pulse Rate: 100 Blood Pressure: 116/90 Respiratory Rate: 20 Pulse Ox: 98 Oxygen Delivery Method: Room Air Assessment Airway patent: Yes Spontaneous unlabored respirations: Yes Mental status: Awake nausea: No Vomiting: No Anesthesia Complication: No Fluid Hydration Crystalloid volume administer (ml): 300 Total IV fluid infused: 300 Progress Note Anesthesia document: Postop Eval 1 completed: Yes 01/08/25 1554 <Electronically signed by Rebecca rice CRNA> Date _ Rebecca Mathews CRNA Cosigner Signature: Date CC: ~ Signed [facility] Work Phone: Discharge summary Author Feliciano Castellon [facility] Note Date/Time January 08, 2025 3:10 pm [facility] Medical Records Department [address] [place] [address] Instructions for Home/Discharge Instructions 01/08/25 1507 MR#: [id number] Acct: [id number] Name: HOWARD HALL Rep #:[id number] : 1980 44 From: Feliciano salazar MD PCP: Dr. David Michael DO Status:REG MIC Discharge Instructions Procedure Gallbladder Diet Discharge Diet: Light diet - advance as tolerated Activity Discharge Activity: May Not Drive (for 2-3 days or while taking narcotic pain medications.) and - (Do not drive, work heavy equipment or sign legal documents for 24 hours.) May shower in (days): 1 Lifting Restrictions: 20 lbs for 2 weeks Additional Activity Instructions:: Pain medication may cause nausea. You should typically eat light foods as you take your pain medications. Pain medication may also cause constipation. If this is a problem for you, please discuss with your doctor. Dressing / Incision Call your doctor if your incision/area has: Continuous Slow Oozing, Sudden Increased Bleeding, Increased Pain/ Swelling, Increased Redness and Foul Smelling Discharge Call your doctor if you observe: Fever of 101 or Higher Suture Line Care: Avoid Pulling/Pushing and Avoid Pinching/Bending Remove Dressing in: 2 days Additional Dressing/Incision Instructions:: Leave operative bandaids on for 2 days. When you remove dressing, leave Steri-Strips on until your follow-up appointment, or until the Steri-Strips fall off on their own. Follow Up Care Please Follow Up With: Feliciano Castellon MD When: Please call to schedule 2 week follow up appointment. [phone] Test Results: Test results from this visit will be discussed in further detail at your follow- up appointment, if applicable. Discharge Plan Admission Attending Provider: Feliciano Castellon Primary Care Provider: David Michael Instructions Print Language: Bangladeshi Discharge Orders/Prescriptions Prescriptions: No Action citalopram 40 mg tablet 40 mg PO QDAY Referrals / Follow Up: David Michael DO [Primary Care Provider] - Disposition Disposition (needs filled in before D/C Order can be placed): Home, Self Care 01/08/25 1510<Electronically signed by Feliciano Castellon MD>Feliciano Castellon MD CC: Dr. David Michael DO ~ Signed [facility] Work Phone: Evaluation note* Diagnosis Fibrocystic breast changes, left- Primary Breast pain Mastodynia documented in this encounter [facility] Author Feliciano Castellon [facility] Note Date/Time January 08, 2025 2:22 pm [facility] Medical Records Department [address] [place] [address] H&P Exam - Surgical 01/08/25 1420 MR#: [id number] Acct: [id number] Name: HOWARD HALL Rep #:[id number] : 1980 44 From: Feliciano salazar MD PCP: Dr. David Michael, DO Status:REG [facility] Location: [place] [address]1 HPI - General HPI Narrative HOWARD HLAL, is a 44 F who presents for port placement. The patient was found to have breast cancer with metastasis to the lymph nodes. She is here forport placement for neoadjuvant chemotherapy PFSH Medical History Post-menopausal Wears glasses Cancer Depression Anemia Smoker History of edema Regional lymph node metastasis present Anxiety Breast cancer Home Medications ?Medication ?Instructions ?Recorded ?Last Taken ?Type citalopram 40 mg tablet 40 mg PO QDAY 12/09/2401/07 History Allergy/AdvReac Type Severity Reaction Status Date / Time No Known Allergies Allergy Verified 01/08/25 14:01 Family History Aunt Breast cancer Aunt Breast cancer Aunt Breast cancer Father Brain tumor Uncle Cancer Mother Heart disease Surgical History History of wisdom tooth extraction Social History Smoking Status: Light Smoker (<10/day) Tobacco: How many years used: 20 alcohol intake: never ROS Constitutional Constitutional: Denies anorexia, chills or fatigue Eyes Eyes: Denies blurry vision ENT HEENT: Denies abnormal hearing Cardiovascular Cardiovascular: Denies chest pain Respiratory/Chest Respiratory/Chest: Denies cough or dyspnea Gastrointestinal Gastrointestinal: Denies abdominal pain Genitourinary Genitourinary: Denies change in urinary stream Musculoskeletal Musculoskeletal: Denies abnormal gait Integumentary Integumentary: Denies jaundice or new lesions Neurologic Neurologic: Denies abnormal gait Psychiatric Psychiatric: Denies anxiety Vital Signs Vital Signs Vital Signs: 01/08/25 14:02 01/08/25 14:02 Temperature 98.2 F Temperature Source Temporal Pulse Rate 94 Respiratory Rate 18 Respiratory Pattern Normal Blood Pressure 157/97 H Blood Pressure Mean 117 Blood Pressure Source Monitor Blood Pressure Position Sitting Blood Pressure Location Right Arm Pulse Ox 100 Oxygen Delivery Method Room Air Weight Weight: 145 lb 8.081 oz Body Mass Index (BMI) 24.2 Physical Exam Const oriented x3 and no apparent distress Resp normal respiratory effort Cardio regular rate and regular rhythm GI soft to palpation and non-tender Extremity normal to inspection Assessment & Plan Assessment/Plan (1) Breast cancer: QUALIFIERS: Breast location: overlapping sites of breast Estrogenreceptor status: positive Patient sex: female Laterality: left Qualified Code(s): C50.812 - Malignant neoplasm of overlapping sites of left female breast; Z17.0 - Estrogen receptor positive status [ER+] (2) Encounter for insertion of venous access port: PLAN: Plan I discussed right chest port placement with the patient in detail. I discussed the procedure as well as the risks including but not limited to bleeding, infection, pneumothorax, line infection or DVT. Patient understands all the risks and is willing to proceed. Feliciano Castellon MD Pager: [facility] [address] [place] [address], [address] [place] [phone] Office: 01/08/25 1422 <Electronically signed by Feliciano Castellon MD> Cosigner Signature (if applicable): CC: Dr. Feliciano Castellon MD; Dr. David Michael, DO~ Signed [facility] Work Phone: Reason for referral (narrative)* Diagnostic Procedure Only (Routine) - Authorized Specialty Diagnoses / Procedures Referred By Contac t Referred To Contact [facility] Diagnoses Fibrocystic breast changes, left Breast pain Procedures YARELY DIAGNOSTIC BILAT DIAGNOSTIC MAMMOGRAPHY COMPUTER-AIDED DETCJ Faith Quan APRN.RUBBERIZING MECHANIC [address] [address] [facility] [address] [place] [address] Referral ID Status Reason Start Date Expiration Date Visits Requested Visits Authorized [id number] Authorized Auto-Generat ed Referral 03/01/2022 03/31/2023 1 1 * Diagnostic Procedure Only (Routine) - Pending Review Specialty Diagnoses / Procedures Referred By Contamanda t Referred To Contact [facility] Diagnoses Fibrocystic breast changes, left Breast pain Procedures US BREAST LTD LT US BREAST UNI REAL TIME WITH IMAGE LIMITED Faith Clements APRN.CNP [address] [place] [address] [facility] [address] [place] [address] Referral ID Status Reason Start Date Expiration Date Visits Requested Visits Authorized [id number] Pending Review Auto-Generat ed Referral 03/01/2022 03/31/2023 1 1 [facility] for referral (narrative)No reason for referral information availableWC[facility] Work Phone: Summary Purpose Family History No Family History Records Found Relationship Condition Age at Onset Recorded Date/T galen aunt Malignant neoplasm of breast Unknown father Neoplasm of brain Unknown uncle Malignant neoplasm Unknown Relationship Condition Age at Onset Recorded Date/T galen aunt Malignant neoplasm of breast Unknown father Neoplasm of brain Unknown uncle Malignant neoplasm Unknown mother Cardiac disease Unknown Advance Directives No Advanced Directives Records Found Advance Directive Response Recorded Date/ Time Do you have a Healthcare Power of Computer Art Instructor? No January 02, 2025 1:24pm Chief Complaint and Reason for Visit Chief Complaint Admit Date LUMP LEFT BREAST December 04, 2024 1:56pm BIRADS December 09, 2024 1:07p m Reason for Visit Admit Date Left breast mass December 09, 2024 1:07p m Chief Complaint Admit Date LUMP LEFT BREAST December 04, 2024 1:56pm BIRADS December 09, 2024 1:07p m BREAST BIOPSY December 10, 2024 12:05 pm Chief Complaint Admit Date LUMP LEFT BREAST December 04, 2024 1:56pm BIRADS December 09, 2024 1:07p m BREAST BIOPSY December 10, 2024 12:05 pm CORE NEEDLE BIOPSY L BREAST MASS November 13t [id number] 12:46pm Reason for Visit Admit Date Left breast mass December 09, 2024 1:07p m Left breast mass December 10, 2024 12:05 pm Chief Complaint Admit Date LUMP LEFT BREAST December 04, 2024 1:56pm BIRADS 5 December 09, 2024 1:07p m BREAST BIOPSY December 10, 2024 12:05 pm CORE NEEDLE BIOPSY L BREAST MASS December 10t [id number] 12:46pm BREAST CA December 25, 2024 3:54p m Reason for Visit Admit Date Left breast mass December 09, 2024 1:07p m Left breast mass December 10, 2024 12:05 pm Breast cancer December 25, 2024 3:54p m Regional lymph node metastasis present M ay 2024 3:54pm Chief Complaint Admit Date LUMP LEFT BREAST December 04, 2024 1:56pm BIRADS 5 December 09, 2024 1:07p m BREAST BIOPSY December 10, 2024 12:05 pm CORE NEEDLE BIOPSY L BREAST MASS November 12:46pm BREAST CA December 25, 2024 3:54p m BREAST December 25, 2024 4:23p m Insertion, Vascular Port right possible left January 08, 2025 1:42pm Insertion, Vascular Port right possible left January 08, 2025 2:20pm Reason for Visit Admit Date Left breast mass December 09, 2024 1:07p m Left breast mass December 10, 2024 12:05 pm Breast cancer December 25, 2024 3:54p m Regional lymph node metastasis present M ay 2024 3:54pm Breast cancer January 08, 2025 1:42 pm Encounter for insertion of venous access port January 08, 2025 1:42pm Additional Source Comments Source Comments (unrecognize d section and content) In the event this informatio n is protected by the Federal Confidentiality of Alcohol and Drug Abuse Patient Records regulations: The Federal rules restrict any use of the information to criminally investigate or prosecute any alcohol or drug abuse patient.[facility] Reason for Visit (unrecogniz ed section and content) Reason Comments left breast lump Care Teams (unrecognized sec tion and content) Home Health Care Social Worker Relationship Specialty Start Date End Date David Michael DO PCP - General Family Practice 02/23/16 Team Status: Active Member Role Status Dates Dr. David Michael DO Primary Care Provider Active Team Status: Inactive Member Role Status Dates Dr. David Michael DO Primary Care Provider Active Start: November 14, 2024 End: November 14, 2024 Dr. David Michael DO Attending Provider Active Start: November 14, 2024 End: November 14, 2024 Team Status: Inactive Member Role Status Dates Dr. David Michael DO Primary Care Provider Active Start: December 04, 2024 End: December 04, 2024 Dr. David Michael DO Attending Provider Active Start: December 04, 2024 End: December 04, 2024 Dr. David Michael DO Referring Provider Active Start: December 04, 2024 End: December 04, 2024 Team Status: Inactive Member Role Status Dates Dr. David Michael DO Primary Care Provider Active Start: December 09, 2024 End: December 09, 2024 Dr. David Michael DO Referring Provider Active Start: December 09, 2024 End: December 09, 2024 Dr. Feliciano Castellon MD Attending Provider Active Start: December 09, 2024 End: December 09, 2024 Team Status: Inactive Member Role Status Dates Dr. David Michael DO Primary Care Provider Active Start: December 10, 2024 End: December 10, 2024 Dr. David Michael DO Referring Provider Active Start: December 10, 2024 End: December 10, 2024 Dr. Feliciano Castellon MD Attending Provider Active Start: December 10, 2024 End: December 10, 2024 Team Status: Inactive Member Role Status Dates Dr. David Michael DO Primary Care Provider Active Start: December 10, 2024 End: December 10, 2024 Dr. Feliciano Castellon MD Attending Provider Active Start: December 10, 2024 End: December 10, 2024 Dr. Feliciano Castellon MD Referring Provider Active Start: December 10, 2024 End: December 10, 2024 Team Status: Inactive Member Role Status Dates Dr. David Michael DO Primary Care Provider Active Start: December 25, 2024 End: December 25, 2024 Dr. Arnaud Borja MD Attending Provider Active Start: December 25, 2024 End: December 25, 2024 Dr. Feliciano Castellon MD Referring Provider Active Start: December 25, 2024 End: December 25, 2024 Team Status: Active Member Role Status Dates Dr. David Michael DO Primary Care Provider Active Start: December 25, 2024 Dr. Arnaud Borja MD Attending Provider Active Start: December 25, 2024 Dr. Arnaud Borja MD Referring Provider Active Start: December 25, 2024 Team Status: Inactive Member Role Status Dates Dr. David Michael DO Primary Care Provider Active Start: January 08, 2025 End: January 08, 2025 Dr. Feliciano Castellon MD Attending Provider Active Start: January 08, 2025 End: January 08, 2025 Dr. Feliciano Castellon MD Referring Provider Active Start: January 08, 2025 End: January 08, 2025 Team Status: Active Member Role Status Dates Dr. David Michael DO Primary Care Provider Active Start: January 08, 2025 Dr. Feliciano Castellon MD Attending Provider Active Start: January 08, 2025 Dr. Feliciano Castellon MD Referring Provider Active Start: January 08, 2025 Dr. Feliciano Castellon MD Other Provider Active Start: January 08, 2025 INFORMATION SOURCE (unrecogn ized section and content) DATE CREATED AUTHOR 05/01/2022 [facility] DATE CREATED AUTHOR AUTHOR'S ORGANIZ ATION 08/14/2023 [facility] DATE CREATED AUTHOR AUTHOR'S ORGANIZ ATION 01/09/2025 [facility] Goals (unrecognized section and content) Goals may be documented in a n alternate sectionGoals may be documented in an alternate sectionGoals may be documented in an alternate sectionGoals may be documented in an alternate section FOR RECORDS PERTAINING TO PATIENTS WHO ARE OR HAVE BEEN ENROLLED IN A CHEMICAL DEPENDENCY/SUBSTANCEABUSE PROGRAM, SOME INFORMATION MAY BE OMITTED. This clinical summary was aggregated from multiple sources. Caution should be exercised in using it in the provision of clinical care. This summary normalizes information from multiple sources, and as a consequence, information in this document may materially change the coding, format and clinical context of patient data. In addition, data may be omitted in some cases. CLINICAL DECISIONS SHOULD BE BASED ON THE PRIMARY CLINICAL RECORDS. [facility]. provides no warranty or guarantee of the accuracy or completeness of information in this document.
--- NOTE | 2025-01-13 06:51 | CT_ITS ---
PROCEDURE: CT CHEST, ABD, PEL W/CONTRAST 01/13/2025 REASON FOR EXAM: STAGING BREAST CANCER TECHNIQUE: Chest, abdomen and pelvis CT with intravenous contrast. Coronal and Sagittal reconstruction series were provided. One or more dose reduction techniques were used (e.g., Automated exposure control, adjustment of the mA and/or kV according to patient size, use of iterative reconstruction technique. PATIENT PREPARATION: Per protocol ORAL CONTRAST TYPE: None. CONTRAST: Isovue VOLUME: 95mL RADIATION DOSE SUMMARY: CTDlvol: 32.50 mGy DLP: 753.47 mGycm COMPARISON: None. FINDINGS: CT CHEST: Lower neck: The thyroid gland is unremarkable. There is no supraclavicular lymphadenopathy. Mediastinum: No abnormal masses or lymphadenopathy. Heart and Vasculature: The heart size is normal. There is no pericardial effusion. The thoracic aorta is unremarkable. There is no calcific vascular disease of the thoracic aorta or coronary arteries evident. Lungs and Airways: The lungs are clear. There is no significant interstitial alveolar lung disease. There are no pulmonary nodules or masses. Pleura: There are no pleural effusions. Chest wall: There is no evidence of bony metastatic disease. There is a 3.4 x 2.0 cm mass in the upper inner quadrant of the left breast. There is a left axillary lymph node containing a biopsy clip. There is pectus excavatum deformity of the chest. There is a chemotherapy port in the right upper chest wall with the tip in the superior vena cava via the right internal jugular vein. CT ABDOMEN/PELVIS: Liver: There is nonspecific hepatomegaly. Gallbladder: Normal. Spleen: Normal. Pancreas: Normal. Adrenals: Normal. Kidneys: Normal. Bladder: Normal unenhanced appearance. Reproductive Organs: The uterus and ovaries are unremarkable. There is no free fluid in the pelvis. There is no pelvic or inguinal lymphadenopathy. Bowel: There is a small hiatal hernia. There is stool throughout the colon. Appendix: The appendix is not identified. Lymph nodes: There is no mesenteric or retroperitoneal lymphadenopathy. Vasculature: The abdominal aorta, inferior vena cava, and portal venous system are normal. Abdominal wall: There is a 2.8 cm in diameter umbilical hernia containing normal fat. Musculoskeletal: There is degenerative disc disease, L5-S1. CT/CT Chest, Abd, Pel w/Contrast IMPRESSION: 1. Known mass in the left breast consistent with carcinoma. 2. There is no evidence of metastatic disease. 3. Other findings as noted. Reading Location: [id number]
== END | disposition home or self-care (01) ==
PROVIDERS: PCP Family Medicine; Referring Provider Internal Medicine Hematology & Oncology; Visit Provider Internal Medicine Hematology & Oncology
DX: C50.812 Malignant neoplasm of overlapping sites of left female breast (principal); C77.9 Secondary and unspecified malignant neoplasm of lymph node, unspecified; Z17.0 Estrogen receptor positive status [ER+]
CPT/HCPCS: 71260; 74177; Q9967

== ENCOUNTER → 2025-01-17 | Outpatient (CLI) | payer MEDICAID, SELFPAY ==
--- NOTE | 2025-01-17 08:42 | NM_ITS ---
PROCEDURE: BONE SCAN WHOLE BODY 01/17/2025 REASON FOR EXAM: STAGING BREAST CANCER TECHNIQUE: Delayed phase imaging of the whole body after radiopharmaceutical administration intravenous RADIOPHARMACEUTICAL: 25 mCi Technetium-99m MDP IV COMPARISON: None. FINDINGS: Delayed: Normal uptake is seen in the axial and appendicular skeleton. Areas of expected uptake for osteoarthritis of the symmetric hands and wrists, elbows, shoulders, knees and ankle Oral secretion in the kidneys with tracer collecting in the urinary bladder is seen as expected s NM/Bone Scan Whole Body IMPRESSION: No evidence of metastatic breast cancer. Reading [facility]
--- OUTSIDE RECORDS SUMMARY | 2025-01-17 09:09 | XMS RPT_ITS | CCD ---
Author Organization [facility] CliniSyct Care Team Providers Care Shipping & Receiving Lead Name Role Phone David Michael DO Primary Care Provider FAITH CLEMENTS Attending Unavailable PARADISEDAVID SPIVEY A Primary Care Unavailable PARADISE, DAVID A Primary Care Unavailable KATHY, FAITH Referring Unavailable PARADISE, DAVID A Primary Care Unavailable PARADISE, DAVID A Primary Care Unavailable FLORIAN VILLA Attending Unavailable Dr. David Michael DO Primary Care Provider Dr. David Michael DO Attending Provider [phone] Dr. David Michael DO Referring Provider Ravinder MOSELEY, Dr. Wiggins Attending Provider Ravinder MOSELEY, Dr. Wiggins Referring Provider Huong MOSELEY, Dr. Lares Attending Provider [phone] Huong MOSELEY, Dr. Lares Referring Provider Ravinder MOSELEY, Dr. Wiggins Other Provider David Michael Primary Care Unavailable David Michael Attending Unavailable ParadiseDavid spivey Referring Unavailable CalabrettaFeliciano Referring Unavailable CalabrFeliciano aquino Attending Unavailable ParadiseDavid Primary Care Unavailable IsckarusArnaud Referring Unavailable IsckarusArnaud Attending Unavailable Paradise, David Primary Care Unavailable RadameskarArnaud regan Attending Unavailable Isckarus, Meirour Referring Unavailable Paradise, David Primary Care Unavailable Paradise, David Primary Care Unavailable Paradise, David Attending Unavailable HumbertoabrFeliciano aquino Attending Unavailable Paradise, David Referring Unavailable Paradise, David Primary Care Unavailable HumbertoabrFeliciano aquino Referring Unavailable Feliciano Castellon Consulting Unavailable Feliciano Castellon Attending Unavailable Paradise, David Primary Care Unavailable Feliciano Castellon Referring Unavailable Huong Meirwes Attending Unavailable ParadiseDavid Primary Care Unavailable Feliciano Castellon Attending Unavailable David Michael Referring Unavailable David Michael Primary Care Unavailable Iscsadiqus, Meirour Referring Unavailable Zohraus, Meirour Attending Unavailable David Michael Primary Care Unavailable Feliciano Castellon Attending Unavailable Feliciano Castellon Referring Unavailable ParadiseDavid Primary Care Unavailable Isckarus, Meirour Referring Unavailable Zohra, Meirour Attending Unavailable David Michael Primary Care Unavailable David Michael Primary Care Unavailable David Michael Attending Unavailable Medications Current Medications Medication Drug Class(es) Dates Sig (Normalized) Sig (Original) citalopram 40 mg oral tablet (13 sources) Serotonin Reuptake Inhibitor Start: 12-09-2024 take [...] Sig (Original) aspirin 81 mg chewable tablet (7 sources) Platelet Aggregation Inhibitor, Nonsteroidal Anti-inflammatory Drug [...] once daily. ibuprofen 600 mg oral tablet (6 sources) Nonsteroidal Anti-inflammatory Drug Start: 8 End: take 1 tablet by mouth every six [...] Take 27 mg by mouth once daily. Fasnhxif-Ao-Tch-Fe- FA ( VITAMIN) tab (1 source) End: 2 take 1 tablet by mouth once Syigpgoh-Ub-Ipf-Fe-FA ( VITAMIN) tab Take 1 tablet by mouth. 0 03/01/2022 Discontinued Comment on above: Take 1 tablet by surya th. Problems Active Problems Problem Classification Problem Date Documented Da te Episodic/Chronic Anxiety disorders (3 sources) Anxiety; Translations: [Anxiety disorder, unspecified] 12-25-2024 Chronic Cancer of breast (12 sources) Malignant tumor of breast ; Translations: [Malignant neoplasm of unspecified site of unspecified female breast] Onset: 12-25-2024 12-25-2024 Chronic Cardiac dysrhythmias (1 source) Tachycardia, unspecified; Translations: [Tachycardia, unspecified] Onset: 11-21-2024 Episodic Nonmalignant breast conditions (2 sources) Fibrocystic change of left breast; Translations: [Diffuse cystic mastopathy of left breast] Onset: 04-20-2022 Chronic Nonmalignant breast conditions (17 sources) Pain of breast; Translations: [Mastodynia] Onset: 04-20-2022 Episodic Other aftercare (4 sources) Patient encounter status; Translations: [Encounter for adjustment and management of vascular access device] 01-08-2025 Episodic Other aftercare (2 sources) Encounter for adjustment and management of vascular access device; Translations: [Encounter for adjustment and management of vascular access device] Onset: 01-13-2025 Episodic Other aftercare (1 source) Encounter for therapeutic drug level monitoring; Translations: [Encounter for therapeutic drug level monitoring] Onset: 12-25-2024 Episodic Other aftercare (1 source) Other skilled nursing (current) drug therapy; Translations: [Other mosaic tiler (current) drug therapy] Onset: 12-25-2024 Episodic Other [...] Translations: [Estrogen receptor positive status [ER+]] Onset: 12-25-2024 Episodic Secondary malignancies (6 sources) Regional lymph node metastasis present ; [...] Test Name Value Interpretation Reference Range Facility CT Chest, Abd, Pel w/Contras ton 01-13-2025 CT Chest, Abd, Pel w/Contrast [facility] Imaging Services [address] [place] [id number] Chest, Abd, Pel w/Contrast MR#: [id number] Acct: [id number] Name: HOWARD HALL Rep #: [id number] : 1980 F 44 From: Figueroa Tinoco MD PCP: Dr. David Michael, DO Status: [facility] CLI Study: CT Chest, Abd, Pel w/Contrast Date of Exam: Exam# [id number] Ordering Dr: Arnaud Borja MD PROCEDURE: CT CHEST, ABD, PEL W/CONTRAST 01/13/2025 REASON FOR EXAM: STAGING BREAST CANCER TECHNIQUE: Chest, abdomen and pelvis CT with intravenous contrast. Coronal and Sagittal reconstruction series were provided. One or more dose reduction techniques were used (e.g., Automated exposure control, adjustment of the mA and/or kV according to patient size, use of iterative reconstruction technique. PATIENT PREPARATION: Per protocol ORAL CONTRAST TYPE: None. CONTRAST: Isovue VOLUME: 95mL RADIATION DOSE SUMMARY: CTDlvol: 32.50 mGy DLP: 753.47 mGycm COMPARISON: None. FINDINGS: CT CHEST: Lower neck: The thyroid gland is unremarkable. There is no supraclavicular lymphadenopathy. Mediastinum: No abnormal masses or lymphadenopathy. Heart and Vasculature: The heart size is normal. There is no pericardial effusion. The thoracic aorta is unremarkable. There is no calcific vascular disease of the thoracic aorta or coronary arteries evident. Lungs and Airways: The lungs are clear. There is no significant interstitial alveolar lung disease. There are no pulmonary nodules or masses. Pleura: There are no pleural effusions. Chest wall: There is no evidence of bony metastatic disease. There is a 3.4 x 2.0 cm mass in the upper inner quadrant of the left breast. There is a left axillary lymph node containing a biopsy clip. There is pectus excavatum deformity of the chest. There is a chemotherapy port in the right upper chest wall with the tip in the superior vena cava via the right internal jugular vein. CT ABDOMEN/PELVIS: Liver: There is nonspecific hepatomegaly. Gallbladder: Normal. Spleen: Normal. Pancreas: Normal. Adrenals: Normal. Kidneys: Normal. Bladder: Normal unenhanced appearance. Reproductive Organs: The uterus and ovaries are unremarkable. There is no free fluid in the pelvis. There is no pelvic or inguinal lymphadenopathy. Bowel: There is a small hiatal hernia. There is stool throughout the colon. Appendix: The appendix is not identified. Lymph nodes: There is no mesenteric or retroperitoneal lymphadenopathy. Vasculature: The abdominal aorta, inferior vena cava, and portal venous system are normal. Abdominal wall: There is a 2.8 cm in diameter umbilical hernia containing normal fat. Musculoskeletal: There is degenerative disc disease, L5-S1. CT/CT Chest, Abd, Pel w/Contrast IMPRESSION: 1. Known mass in the left breast consistent with carcinoma. 2. There is no evidence of metastatic disease. 3. Other findings as noted. Reading Location: [facility] CC: Dr. Arnaud Borja MD; Dr. David Michael DO Svp Monetization: Signed [facility] Chest 1 Viewon 01-08-2025 Chest 1 View [facility] Imaging Services [address] [place] [address] Chest 1 View MR#: [id number] Acct: [id number] Name: HOWARD HALL Rep #: [id number] : 1980 F 44 From: Larry shields MD PCP: Dr. David Michael DO Status: [facility] Study: Chest 1 View Date of Exam: 01/08/25 Exam# [id number] Ordering Dr: Feliciano Castellon PROCEDURE: CHEST 1 [...] vena cava and right atrium. Reading Location: [place] [address] CC: Dr. Feliciano Castellon MD; Dr. David Michael DO Svp Monetization: Signed [facility] Discharge Instructionon 12-29 Discharge Instruction [facility] Medical Records Department [address] [place] [address] Instructions for Home/Discharge Instructions 01/08/25 1507 MR#: [id number] Acct: [id number] Name: HOWARD HALL Rep #: [id number] : 1980 44 From: Feliciano Castellon MD PCP: Dr. David Michael DO Status:[facility] Discharge Instructions Procedure Gallbladder Diet Discharge Diet: [...] to schedule 2 week follow up appointment. [phone] Test Results: Test results from this visit will be discussed in further detail at your follow-up appointment, if applicable. Discharge Plan Admission Attending Provider: Feliciano Castellon Primary Care Provider: David Michael Instructions Print Language: Peruvian Discharge Orders/Prescriptions Prescriptions: No Action citalopram 40 mg tablet 40 mg PO QDAY Referrals / Follow Up: David Michael DO [Primary Care Provider] - Disposition Disposition (needs filled in before D/C Order can be placed): Home, Self Care 01/08/25 1510 Feliciano Castellon MD CC: Dr. David Michael DO Signed [facility] H AND P Exam - Surgicalon H&P Exam - Surgical [facility] Medical Records Department [address] [place] [address] H P Exam - Surgical 01/08/25 1420 MR#: [id number] Acct: [id number] Name: HOWARD HALL Rep #: [id number] : 1980 44 From: Feliciano Castellon MD PCP: Dr. David Michael, DO Status:[facility] Location: [place] [address] HPI - General HPI Narrative HOWARD HALL, [...] willing to proceed. Feliciano Castellon MD Pager: [facility] [address] [place] [address], [address] [place] [address] Office: 01/08/25 1424 Cosigner Signature (if applicable): CC: Dr. Feliciano Castellon MD; Dr. David Michael DO Signed [facility] MR/POSTOP.[facility] 01-08-2025 MR/POSTOP.[facility] Medical Records Department [address] [place], [place] [id number] Anesthesia Postop Eval I 01/08/25 1553 MR#: [id number] Acct: [id number] Name: VICKEYHOWARD Rep #: [id number] : 1980 44 From: Rebecca Mathews CRNA PCP: Dr. David Michael DO Status:REG SDC Y Race: C Location: [place] [address] Anesthesia: Postop Eval I Current Vital Signs [...] 1 completed: Yes 01/08/25 1554 Date Rebecca DeForeest AUTOMOTIVE PARTS COUNTER ASSISTANT Cosigner Signature: Date CC: Signed [facility] MR/POSTOP[facility] Medical Records Department [address] [place] [address] Anesthesia Postop Eval I 01/08/25 1506 MR#: [id number] Acct: [id number] Name: HOWARD HALL Rep #: [id number] : 1980 44 From: Rebecca Mathews AUTOMOTIVE PARTS COUNTER ASSISTANT PCP: Dr. David Michael, DO Status:REG [facility] Y Race: C Location: [place] [address] Anesthesia: Postop Eval I Current Vital Signs [...] completed: Yes 01/08/25 1508 Date Rebecca DeForeest AUTOMOTIVE PARTS COUNTER ASSISTANT Cosigner Signature: CC: Signed [facility] MR/BAUUTYUA2et 01-08-2025 MR/POSTOPAN2 [facility] Medical Records Department [address] [place] [address] Anesthesia Postop Eval II 01/08/25 1530 MR#: [id number] Acct: [id number] Name: HOWARD HALL Rep #: [id number] : 1980 44 From: Clyde Starks MD PCP: Dr. David Michael, DO Status:REG SDC Y Race: C Location: [facility]01- Anesthesia Postop Eval I Sum Postop Eval Completion status Anesthesia document: Postop Eval 1 completed: Yes Anesthesia Postop Eval I Summary Anesthesia Postop Eval I Summary: Anesthesia Postop Eval I: Assessment Summary Airway patent Yes 01/08/25 15:08 AUTOMOTIVE PARTS COUNTER ASSISTANT.JDEF Spontaneous unlabored Yes 01/08/25 15:08 AUTOMOTIVE PARTS COUNTER ASSISTANT.JDEF respirations Mental status Awake 01/08/25 15:08 AUTOMOTIVE PARTS COUNTER ASSISTANT.JDEF nausea No 01/08/25 15:08 AUTOMOTIVE PARTS COUNTER ASSISTANT.JDEF Vomiting No 01/08/25 15:08 AUTOMOTIVE PARTS COUNTER ASSISTANT.JDEF Anesthesia Postop Eval I: Fluid Summary Crystalloid volume administer 300 01/08/25 15:08 AUTOMOTIVE PARTS COUNTER ASSISTANT.JDEF (ml) Colloids volume administered ( ml) Blood Product volume administered (ml) Total IV fluid infused 300 01/08/25 15:08 AUTOMOTIVE PARTS COUNTER ASSISTANT.JDEF Anesthesia Postop Eval I: Summary Notes Anesthesia Complication No 01/08/25 15:08 AUTOMOTIVE PARTS COUNTER ASSISTANT.JDEF Anesthesia Complication Comment: Post-operative progress note Anesthesia: Postop Eval II Evaluation Mental status: Awake Pain Level: 0 nausea: No Vomiting: No 01/08/25 1530 Date Clyde Starks MD Cosigner Signature: Date CC: Signed [facility] Operative Reporton 5 Operative Report [facility] Medical Records Department [address] [place] [address] Operative Report 01/08/25 1506 MR#: [id number] Acct: [id number] Name: HOWARD HALL Rep #: [id number] : 1980 44 From: Feliciano Castellon MD PCP: Dr. David Michael, DO Status:[facility] Location: [place] [address] Operative Report (Standard) Operative Information Date of Procedure: 01/08/25 Pre-Operative Diagnosis: Need for vascular access port for chemotherapy Post-Operative Diagnosis: Same Surgery/Procedure Performed: Ultrasound and fluoroscopy guided right chest port placement with utilization of right IJ vocational counselor: No Type of Anesthesia: Local MAC RN [...] apply: Implanted device Implanted device details: 8 [employer] PowerPort Estimated Blood Loss: 5 Specimen collected: [...] Castellon MD; Dr. David Michael DO Signed [facility] MR/PAT.ANEon 01-03-2025 MR/PAT.[facility] Medical Records Department [address] [place] [address] PAT - Anesthesia 01/03/25 0832 MR#: [id number] Acct: [id number] Name: HOWARD HALL Rep #: [id number] : 1980 44 From: Clyde Starks MD PCP: Dr. 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 History - high school admissions representative Hx Hospitalization No 01/02/25 13:24 Any Problems [...] take am of surgery PONV PONV - high school admissions representative: PONV - high school admissions representative Female Yes 01/02/25 13:24 HX of Motion [...] 12/25/24 16:04 Respiratory Assessment Respiratory Assessment - high school admissions representative: Respiratory Tract Infection Hx - high school admissions representative Hx Respiratory Tract Infection No 01/02/25 13:24 STOP Sleep Apnea STOP Sleep Apnea - high school admissions representative: STOP Sleep Apnea - high school admissions representative Hx Hypertension No 01/02/25 13:24 Hx Sleep [...] 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 Use History - high school admissions representative: Tobacco Use History - high school admissions representative Tobacco Use Smoking Status Light Smoker (<10/day) 01/02/25 13:24 Hx Tobacco Use Yes 01/02/25 13:24 Years Smoking Packs Smoked per Day 0.5 01/02/25 13:24 Smoking Cessation Date was within the last 15 years Hx Smoking Cessation Date Hx Smoking Cessation Counseling Hematologic Medial History Hematologic Hx - high school admissions representative: 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 [facility] MR/PAT.Elsa 01-02-2025 MR/PAT.[facility] Medical Records Department [address] [place] [address] PAT - Anesthesia 01/02/25 1722 MR#: [id number] Acct: [id number] Name: HOWARD HALL Rep #: [id number] : 1980 44 From: Stuart Rashid MD PCP: Dr. David Michael, DO Status:PRE [facility] Y Race: C [place]: [facility] Pre-Assessment Diagnosis/Proposed Procedure Planned Operative Procedure(s): (R) Insertion, Vascular Port right possible left Anesthesia History Anesthesia History - high school admissions representative: Anesthesia History - high school admissions representative Hx Hospitalization No 01/02/25 13:24 Any Problems [...] take am of surgery PONV PONV - high school admissions representative: PONV - high school admissions representative Female Yes 01/02/25 13:24 HX of Motion [...] 12/25/24 16:04 Respiratory Assessment Respiratory Assessment - high school admissions representative: Respiratory Tract Infection Hx - high school admissions representative Hx Respiratory Tract Infection No 01/02/25 13:24 STOP Sleep Apnea STOP Sleep Apnea - high school admissions representative: STOP Sleep Apnea - high school admissions representative Hx Hypertension No 01/02/25 13:24 Hx Sleep [...] 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 Use History - high school admissions representative: Tobacco Use History - high school admissions representative Tobacco Use Smoking Status Light Smoker (<10/day) 01/02/25 13:24 Hx Tobacco Use Yes 01/02/25 13:24 Years Smoking Packs Smoked per Day 0.5 01/02/25 13:24 Smoking Cessation Date was within the last 15 years Hx Smoking Cessation Date Hx Smoking Cessation Counseling Hematologic Medial History Hematologic Hx - high school admissions representative: 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 [facility] CA 15-3on 12-27-2024 CA 15-3 74.7 U/mL Abnormal 0.0-25.0 [facility] Comment on above: Result Comment: [employer] Electrochemiluminescence Immunoassay (ECLIA) Values obtained with different assay methods or kits cannot be used interchangeably. Results cannot be interpreted as absolute evidence of the presence or absence of malignant disease. Performed at: [address] [id number] Records Management Director: Mendez Parmar PhD, Phone: [phone] Performed By: #### L 3100.5040, L100.0100, L500.4050, L400.7600, L3100.5055, L3100.5030 ####[facility] [address] [place], [place], [id number] CA 27.29on 12-27-2024 CA 27.29 103.0 U/mL Abnormal 0.0-38.6 [facility] Comment on above: Result Comment: [employer] Centaur Immunochemiluminometric Methodology (ICMA) Values obtained with different assay methods or kits cannot be used interchangeably. Results cannot be interpreted as absolute evidence of the presence or absence of malignant disease. Performed By: #### L 3100.5040, L100.0100, L500.4050, L400.7600, L3100.5055, L3100.5030 ####[facility] [address] [place], [place], [id number] Absolute lymphocyte countOrd ered By: Arnaud Borja on 12-25-2024 Lymphocytes Auto (Unsp spec) [#/Vol] 2.39 10*3/uL 0.83-4.51 [facility] Absolute neutrophil countOrd ered By: Arnaud Borja on 12-25-2024 Neutrophils (Bld) [#/Vol] 3.0 10*3/uL 2.0-7.7 [facility] Anion gap in Serum or Plasma Ordered By: Arnaud Borja on 12-25-2024 Anion gap [Moles/Vol] 11 mmol/L 5- [facility] Automated lymphocyte count a s percentage of total leukocytesOrdered By: Arnaud Borja on 12-25-2024 Lymphocytes/100 WBC Auto (Unsp spec) 39.3 % 19- [facility] BUN/creatinine ratioOrdered By: [facility] on 12-25-2024 Urea nitrogen/Creatinine [Mass ratio] 16.4 mg/mg 10-20 [facility] Basophil percentageOrdered B y: Arnaud Borja on 12-25-2024 Basophils/100 WBC (Bld) 0.7 % 0-1 [facility] Bilirubin, totalOrdered By: Arnaud Borja on 12-25-2024 Bilirubin [Mass/Vol] 0.28 mg/dL 0.00-1.30 [facility] CA 15-3Ordered By: Arnaud alvarado on 12-25-2024 CA 15-3 74.7 U/mL High 0.0-25.0 [facility] Comment on above: [employer] El ectrochemiluminescence Immunoassay(ECLIA)Values obtained with different assay methods or kits cannotbe used interchangeably. Results cannot be interpreted asabsolute evidence of the presence or absence of malignantdisease.Performed at: [address] [id number] Director: Mendez Parmar PhD, Phone: [phone] CA 27.29Ordered By: Arnaud Broja on 12-25-2024 CA 27.29 103.0 U/mL High 0.0-38.6 [facility] Comment on above: [employer] Immu nochemiluminometric Methodology (ICMA)Values obtained with different assay methods or kits cannotbe used interchangeably. Results cannot be interpreted asabsolute evidence of the presence or absence of malignantdisease. CBC W/Diff, Automatedon 11-29 Absolute Lymph 2.39 X10 3/uL Normal 0.83-4.51 [facility] Comment on above: Performed By: #### L 3100.5040, L100.0100, L500.4050, L400.7600, L3100.5055, L3100.5030 ####[facility] [address] [place], [address] Absolute Neut 3.0 X10 3/uL Normal 2.0-7.7 [facility] Comment on above: Performed By: #### L 3100.5040, L100.0100, L500.4050, L400.7600, L3100.5055, L3100.5030 ####[facility] [address] [place], [address] Basophils/100 WBC (Bld) 0.7 % Normal 0-1 [facility] Comment on above: Performed By: #### L 3100.5040, L100.0100, L500.4050, L400.7600, L3100.5055, L3100.5030 ####[facility] [address] [place], [place], [phone] Eosinophils/100 WBC (Bld) 3.5 % Normal 0-5 [facility] Comment on above: Performed By: #### L 3100.5040, L100.0100, L500.4050, L400.7600, L3100.5055, L3100.5030 ####[facility] [address] [place], [address] Erythrocyte distribution width (RBC) [Ratio] 12.4 % Normal 11.6-14.6 [facility] Comment on above: Performed By: #### L 3100.5040, L100.0100, L500.4050, L400.7600, L3100.5055, L3100.5030 ####[facility] [address] [place], [address] Hematocrit (Bld) [Volume fraction] 36.2 % Low 37-47 [facility] Comment on above: Performed By: #### L 3100.5040, L100.0100, L500.4050, L400.7600, L3100.5055, L3100.5030 ####[facility] [address] [place], [address] Hemoglobin (Bld) [Mass/Vol] 12.3 g/dL Normal 12.0-15.0 [facility] Comment on above: Performed By: #### L 3100.5040, L100.0100, L500.4050, L400.7600, L3100.5055, L3100.5030 ####[facility] [address] [place], [address] IG% 0.200 Normal 0.0-0.9 [facility] Comment on above: Result Comment: IG% - Immature Granulocytes (promyelocytes, myelocytes and metamyelocytes) > 1% indicates that a LEFT SHIFT is Present. Performed By: #### L 3100.5040, L100.0100, L500.4050, L400.7600, L3100.5055, L3100.5030 ####[facility] [address] [place], [address] Lymphocytes/100 WBC (Bld) 39.3 % Normal 19-41 [facility] Comment on above: Performed By: #### L 3100.5040, L100.0100, L500.4050, L400.7600, L3100.5055, L3100.5030 ####[facility] [address] [place], [address] MCH (RBC) [Entitic mass] 29.0 pg Normal 27.0-32.0 [facility] Comment on above: Performed By: #### L 3100.5040, L100.0100, L500.4050, L400.7600, L3100.5055, L3100.5030 ####[facility] [address] [place], [address] MCHC (RBC) [Mass/Vol] 34.0 g/dL Normal 32-36 [facility] Comment on above: Performed By: #### L 3100.5040, L100.0100, L500.4050, L400.7600, L3100.5055, L3100.5030 ####[facility] [address] [place], [address] MCV (RBC) [Entitic vol] 85.4 fL Normal 81-99 [facility] Comment on above: Performed By: #### L 3100.5040, L100.0100, L500.4050, L400.7600, L3100.5055, L3100.5030 ####[facility] [address] [place], [address] Monocytes/100 WBC (Bld) 7.9 % Normal 0-10 [facility] Comment on above: Performed By: #### L 3100.5040, L100.0100, L500.4050, L400.7600, L3100.5055, L3100.5030 ####[facility] [address] [place], [address] Neutrophils/100 WBC (Bld) 48.4 % Normal 47-70 [facility] Comment on above: Performed By: #### L 3100.5040, L100.0100, L500.4050, L400.7600, L3100.5055, L3100.5030 ####[facility] [address] [place], [address] Nucleated RBC (Bld) [#/Vol] 0 10*3/uL Normal 0-5 [facility] Comment on above: Performed By: #### L 3100.5040, L100.0100, L500.4050, L400.7600, L3100.5055, L3100.5030 ####[facility] [address] [place], [address] Platelet mean volume (Bld) [Entitic vol] 11.0 fL Normal 6.2-12.0 [facility] Comment on above: Performed By: #### L 3100.5040, L100.0100, L500.4050, L400.7600, L3100.5055, L3100.5030 ####[facility] [address] [place], [address] Platelets (Bld) [#/Vol] 258 10*3/uL Normal 150-450 [facility] Comment on above: Performed By: #### L 3100.5040, L100.0100, L500.4050, L400.7600, L3100.5055, L3100.5030 ####[facility] [address] [place], [address] RBC (Bld) [#/Vol] 4.24 10*6/uL Normal 4.2-5.4 [facility] Comment on above: Performed By: #### L 3100.5040, L100.0100, L500.4050, L400.7600, L3100.5055, L3100.5030 ####[facility] [address] [place], [address] RDW SD 38.7 fl Normal 35.1-43.9 [facility] Comment on above: Performed By: #### L 3100.5040, L100.0100, L500.4050, L400.7600, L3100.5055, L3100.5030 ####[facility] [address] [place], [address] WBC (Bld) [#/Vol] 6.1 10*3/uL Normal 4.4-11.[address] [facility] Comment on above: Performed By: #### L 3100.5040, L100.0100, L500.4050, L400.7600, L3100.5055, L3100.5030 ####[facility] [address] [place], [address] Carbon dioxide, total [Moles /volume] in Central venous bloodOrdered By: Arnaud Borja on 12-25-2024 CO2 [Moles/Vol] 25.7 mmol/L 21.0-32.0 [facility] Chloride assayOrdered By: Jluis Borja on 12-25-2024 Chloride [Moles/Vol] 105 mmol/L 98-108 [facility] Comprehensive Metabolic Prof ilon 12-25-2024 Albumin [Mass/Vol] 4.6 g/dL Normal 3.5-5.[address] [facility] Comment on above: Performed By: #### L 3100.5040, L100.0100, L500.4050, L400.7600, L3100.5055, L3100.5030 ####[facility] [address] [place], [address] Albumin/Globulin [Mass ratio] 1.5 {ratio} Normal 0.9-2.4 [facility] Comment on above: Performed By: #### L 3100.5040, L100.0100, L500.4050, L400.7600, L3100.5055, L3100.5030 ####[facility] [address] [place], [address] ALK PHOS 98 U/L Normal 35-104 [facility] Comment on above: Performed By: #### L 3100.5040, L100.0100, L500.4050, L400.7600, L3100.5055, L3100.5030 ####[facility] [address] [place], [address] ALT [Catalytic activity/Vol] 24 U/L Normal <=34 [facility] Comment on above: Performed By: #### L 3100.5040, L100.0100, L500.4050, L400.7600, L3100.5055, L3100.5030 ####[facility] [address] [place], [address] AST [Catalytic activity/Vol] 27 U/L Normal <=31 [facility] Comment on above: Performed By: #### L 3100.5040, L100.0100, L500.4050, L400.7600, L3100.5055, L3100.5030 ####[facility] [address] [place], [address] Bilirubin [Mass/Vol] 0.28 mg/dL Normal 0.00-1.30 [facility] Comment on above: Performed By: #### L 3100.5040, L100.0100, L500.4050, L400.7600, L3100.5055, L3100.5030 ####[facility] [address] [place], [address] BUN/CRE 16.4 RATIO Normal 10-20 [facility] Comment on above: Performed By: #### L 3100.5040, L100.0100, L500.4050, L400.7600, L3100.5055, L3100.5030 ####[facility] [address] [place], [address] Calcium [Mass/Vol] 9.7 mg/dL Normal 7.6-11.[address] [facility] Comment on above: Performed By: #### L 3100.5040, L100.0100, L500.4050, L400.7600, L3100.5055, L3100.5030 ####[facility] [address] [place], [address] Chloride [Moles/Vol] 105 mmol/L Normal 98-108 [facility] Comment on above: Performed By: #### L 3100.5040, L100.0100, L500.4050, L400.7600, L3100.5055, L3100.5030 ####[facility] [address] [place], [address] CO2 [Moles/Vol] 25.7 mmol/L Normal 21.0-32.0 [facility] Comment on above: Performed By: #### L 3100.5040, L100.0100, L500.4050, L400.7600, L3100.5055, L3100.5030 ####[facility] [address] [place], [address] Creatinine [Mass/Vol] 0.84 mg/dL Normal 0.70-1.20 [facility] Comment on above: Performed By: #### L 3100.5040, L100.0100, L500.4050, L400.7600, L3100.5055, L3100.5030 ####[facility] [address] [place], [place], [id number] GAP 11 Normal 5-15 [facility] Comment on above: Performed By: #### L 3100.5040, L100.0100, L500.4050, L400.7600, L3100.5055, L3100.5030 ####[facility] [address] [place], [address] GFR/1.73 sq M.predicted among non-blacks MDRD (S/P/Bld) [Vol rate/Area] 88 mL/min/{1.73_m2} Normal >60 [facility] Comment on above: Result Comment: mL/m in/1.73m2 CKD-EPI Creatinine Equation (2020) Performed By: #### L 3100.5040, L100.0100, L500.4050, L400.7600, L3100.5055, L3100.5030 ####[facility] [address] [place], [address] Globulin (S) [Mass/Vol] 3.0 g/dL Normal 2.2-4.2 [facility] Comment on above: Performed By: #### L 3100.5040, L100.0100, L500.4050, L400.7600, L3100.5055, L3100.5030 ####[facility] [address] [place], [address] Glucose [Mass/Vol] 95 mg/dL Normal 70-[address] [facility] Comment on above: Performed By: #### L 3100.5040, L100.0100, L500.4050, L400.7600, L3100.5055, L3100.5030 ####[facility] [address] [place], [address] Potassium [Moles/Vol] 4.0 mmol/L Normal 3.3-5.1 [facility] Comment on above: Performed By: #### L 3100.5040, L100.0100, L500.4050, L400.7600, L3100.5055, L3100.5030 ####[facility] [address] [place], [address] Sodium [Moles/Vol] 141 mmol/L Normal 133-[address] [facility] Comment on above: Performed By: #### L 3100.5040, L100.0100, L500.4050, L400.7600, L3100.5055, L3100.5030 ####[facility] [address] [place], [address] T PROT 7.5 g/dL Normal 5.9-8.4 [facility] Comment on above: Performed By: #### L 3100.5040, L100.0100, L500.4050, L400.7600, L3100.5055, L3100.5030 ####[facility] [address] [place], [address] Urea nitrogen [Mass/Vol] 14 mg/dL Normal 4-19 [facility] Comment on above: Performed By: #### L 3100.5040, L100.0100, L500.4050, L400.7600, L3100.5055, L3100.5030 ####[facility] [address] [place], [place], [address] Eosinophil percentageOrdered By: [facility] Huong on 12-25-2024 Eosinophils/100 WBC (Bld) 3.5 % 0-5 [facility] Erythrocyte distribution wid th ratioOrdered By: [facility] Radamesmusa on 12-25-2024 Erythrocyte distribution width (RBC) [Ratio] 12.4 % 11.6-14.6 [facility] Erythrocyte distribution wid th standard deviationOrdered By: M[facility] Southeastmusa on 12-25-2024 Erythrocyte distribution width (RBC) [Ratio] 38.7 fl 35.1-43.9 [facility] FSH and LHon 12-25-2024 FSH 89.2 mIU/mL Normal [facility] Comment on above: Result Comment: FEMA LE: Follicular: 1.4 - 18.1 mIU/mL Midcycle: 3.4 - 33.4 mIU/mL Luteal: 1.5 - 9.1 mIU/mL Post Menopause: 23.0 - 116.3 mIU/mL MALE: 1.4 - 18.1 mIU/mL Performed By: #### L 3100.5040, L100.0100, L500.4050, L400.7600, L3100.5055, L3100.5030 ####[facility] [address] [place], [place], [address] LH 60.9 mIU/mL Normal [facility] Comment on above: Result Comment: FEMA LE: Follicular: 1.9-12.5 mIU/mL Midcycle: 8.7-76.3 mIU/mL Luteal: 0.5-16.9 mIU/mL Post Menopause: 15.9-54.0 mIU/mL MALE: 20-70 Years: 1.5-9.3 mIU/mL >70 Years: 3.1-34.6 mIU/mL Performed By: #### L 3100.5040, L100.0100, L500.4050, L400.7600, L3100.5055, L3100.5030 ####[facility] [address] [place], [place], [address] Glomerular filtration rate ( GFR) estimation/1.73 sq m using serum, plasma, or whole bOrdered By: Arnaud Borja on 12-25-2024 GFR/1.73 sq M.predicted among non-blacks MDRD (S/P/Bld) [Vol rate/Area] 88 mL/min/{1.73_m2} >60 [facility] Comment on above: mL/min/1.73m2 CKD-EP I Creatinine Equation (2020) Hematocrit Auto (Bld) [Volum e fraction]Ordered By: Arnaud Borja on 12-25-2024 Hematocrit (Bld) [Volume fraction] 36.2 % Low 37-47 [facility] Hemoglobin measurementOrdere d By: Arnaud Borja on 12-25-2024 Hemoglobin (Bld) [Mass/Vol] 12.3 g/dL 12.0-15.0 [facility] Immature granulocytes/100 WB C Auto (Bld)Ordered By: Arnaud Borja on 12-25-2024 Immature granulocytes/100 WBC (Bld) 0.200 % 0.0-0.9 [facility] Comment on above: IG% - Immature Granu locytes (promyelocytes, myelocytes and metamyelocytes) > 1% indicates that a LEFT SHIFT is Present. Laboratory - Chemistry and C hemistry - challengeOrdered By: Arnaud Borja on 12-25-2024 AST [Catalytic activity/Vol] 27 U/L <32 [facility] MCV (mean corpuscular volume ) determinationOrdered By: [facility] on 12-25-2024 MCV (RBC) [Entitic vol] 85.4 fL 81-99 [facility] Mean corpuscular hemoglobin (MCH) determinationOrdered By: [facility] on 12-25-2024 MCH (RBC) [Entitic mass] 29.0 pg 27.0-32.0 [facility] Mean corpuscular hemoglobin concentration (MCHC) determinationOrdered By: [facility] on 12-25-2024 MCHC (RBC) [Mass/Vol] 34.0 g/dL 32-36 [facility] Mean platelet volume determi nationOrdered By: Arnaud Borja on 12-25-2024 Platelet mean volume (Bld) [Entitic vol] 11.0 fL 6.2-12.0 [facility] Monocyte percentageOrdered B y: Arnaud Borja on 12-25-2024 Monocytes/100 WBC (Bld) 7.9 % 0-10 [facility] Neutrophil percentageOrdered By: [facility] Huong on 12-25-2024 Neutrophils/100 WBC (Bld) 48.4 % 47-70 [facility] Nucleated red blood cell per centageOrdered By: [facility] Huong on 12-25-2024 Nucleated RBC/100 WBC (Bld) [Ratio] 0 % 0-5 [facility] Oncology Visit Reporton 11-29 Oncology Visit Report [facility] [address] [place] [address] OFFICE VISIT Date of Service: 12/25/24 1555 MR#: [id number] Acct: [id number] Name: HOWARD HALL Rep #: [id number] : 1980 From: Arnaud Borja MD Age/Sex: 44/F Location: [facility] Status: Signed HPI Subjective Date of Service [...] in 100% of tumor cells PROGESTERONE RECEPTOR (AR): Positive, strong immunoreactivity in 100% of tumor cells HER2/RYAN IHC: Positive, (Score 3+) KI67 IHC: 40% B. Left axilla, lymph node, biopsy: * Metastatic mammary carcinoma (See note) Note: The pancytokeratin stain is positive supporting the diagnosis. [facility] Medical History (Updated 12/25/24 @ 16:50 by [...] or weight (more content not included)... Normal [facility] Platelet countOrdered By: Jluis Borja on 12-25-2024 Platelets (Bld) [#/Vol] 258 10*3/uL 150-450 [facility] Potassium measurement (mass/ volume)Ordered By: Arnaud Borja on 12-25-2024 Potassium (Unsp spec) [Mass/Vol] 4.0 mmol/L 3.3-5.1 [facility] ,Urineon 12-25-2024 Beta HCG ( test) Ql (U) Negative Normal [facility] Comment on above: Result Comment: [phone] Very dilute urine specimens, as indicated by a low specific gravity, may not contain denial management representative levels of hCG. If is still suspected, a first morning urine specimen should be collected 48 hours later and tested. Performed By: #### L 3100.5040, L100.0100, L500.4050, L400.7600, L3100.5055, L3100.5030 #### [facility] [place], [address] RBC Auto (Bld) [#/Vol]Ordere d By: Arnaud Borja on 12-25-2024 RBC (Bld) [#/Vol] 4.24 10*6/uL 4.2-5.4 [facility] Serum creatinine measurement (mass/volume)Ordered By: Arnaud Borja on 12-25-2024 Creatinine [Mass/Vol] 0.84 mg/dL 0.70-1.20 [facility] Serum globulin measurementOr dered By: Arnaud Borja on 12-25-2024 Globulin (S) [Mass/Vol] 3.0 g/dL 2.2-4.2 [facility] Serum glucose measurement (m ass/volume)Ordered By: Arnaud Borja on 12-25-2024 Glucose [Mass/Vol] 95 mg/dL 70-[address] [facility] Serum or plasma alanine rainey otransferase (ALT) measurementOrdered By: Arnaud Borja on 12-25-2024 ALT [Catalytic activity/Vol] 24 U/L <35 [facility] Serum or plasma albumin ceasar urement (mass/volume)Ordered By: Arnaud Borja on 12-25-2024 Albumin [Mass/Vol] 4.6 g/dL 3.5-5.[address] [facility] Serum or plasma albumin/glob ulin mass ratioOrdered By: Arnaud Borja on 12-25-2024 Albumin/Globulin [Mass ratio] 1.5 {ratio} 0.9-2.4 [facility] Serum or plasma alkaline dasia sphatase measurementOrdered By: Arnaud Borja on 12-25-2024 ALP [Catalytic activity/Vol] 98 U/L 35-104 [facility] Serum or plasma calcium ceasar urement (mass/volume)Ordered By: Arnaud Borja on 12-25-2024 Calcium [Mass/Vol] 9.7 mg/dL 7.6-11.[address] [facility] Serum or plasma urea nitroge n measurement (mass/volume)Ordered By: Arnaud Borja on 12-25-2024 Urea nitrogen [Mass/Vol] 14 mg/dL 4-19 [facility] Sodium levelOrdered By: Meir Borja on 12-25-2024 Sodium [Moles/Vol] 141 mmol/L 133-[address] [facility] Total proteinOrdered By: Charanjit marj Huong on 12-25-2024 Protein [Mass/Vol] 7.5 g/dL 5.9-8.[address] [facility] Urine testOrdered By: Arnaud Borja on 12-25-2024 HCG ( test) Ql (U) Negative [facility] Comment on above: [id number] dilute ur ine specimens, as indicated by a low specificgravity, may not contain denial management representative levels of hCG. If is still suspected, a first morning urinespecimen should be collected 48 hours later and tested. White blood cell (WBC) count Ordered By: Arnaud Borja on 12-25-2024 WBC (Bld) [#/Vol] 6.1 10*3/uL 4.4-11.[address] [facility] Surgical pathology reportOrd ered By: Rain Bruce on 12-11-2024 Surgical pathology study [facility] Immunohistochemical Stainson 12-10-2024 Immunohistochemical Stains Patient Age/Sex Location Account Attending Physician HOWARD HALL 43/F LABSPEC [id number] Dr. Feliciano Castellon MD Specimen: [id number] Received: 12/10/24 Status: ISIDRA Neal Num: [id number] Spec Type: BREAST BX Subm Dr: Dr. [...] in 100% of tumor cells PROGESTERONE RECEPTOR (AR): Positive, strong immunoreactivity in 100% of tumor cells HER2/RYAN IHC: Positive, (Score 3+) KI67 IHC: 40% B. Left axilla, lymph node, biopsy: * Metastatic mammary carcinoma (See note) Note: The pancytokeratin stain is positive supporting the diagnosis. MICROSCOPIC DESCRIPTION Slides are reviewed. All controls show appropriate reactivity. Estrogen receptor (ER) and progesterone receptor (AR) are evaluated by manual quantitative immunohistochemistry on formalin-fixed (for >6 hours and <72 hours if possible), paraffin-embedded tissue, using clone SP1 (Rackerby) for ER, clone AR 1E2 (Rackerby) for AR, and polymer detection system on a Rackerby auto-stainer. For both ER and AR, the percentage of positive tumor cell nuclei is determined; <1% is considered negative, and =1% positive. For both ER and AR, the overall intensity of staining in the tumor is categorized as weak, moderate, or strong. HER2 protein expression is evaluated by manual quantitative immunohistochemistry on formalin-fixed (for >6 hours and <72 hours if possible), paraffin-embedded tissue, using FDA approved clone [id number] (rabbit monoclonal, Lolly Wolly Doodle) on a Rackerby autostainer, and scored according to ASCO/CAP criteria. Membrane staining of tumor cells is evaluated and graded as follows, as readily appreciated using a low power objective. 0 (negative): no staining, or Patient Age/Sex Location Account Attending Physician HOWARD HALL 43/F LABSSHERITA [id number] Dr. Feliciano Castellon MD membrane staining that [...] developed and their performance characteristics determined by [facility]. They may not have been cleared [...] of fibro (more content not included)... Normal [facility] Comment on above: Performed By: #### P [facility] ####[facility] [address] [place], [address] Surgery Visit Reporton 12-10 Surgery Visit Report [facility] [address] [place] [address] OFFICE VISIT Date of Service: 12/10/24 MR#: [id number] Acct: [id number] Name: HOWARD HALL Falguni Rep #: [id number] : 1980 Provider: Dr. Feliciano miles MD Age/Sex: 43/F Location: [facility] Status: Signed Intake Intake Visit [...] and patient tolerated the procedure well. Alert Finishing Inspector Yes Biopsy Breast Biopsy: 53582 US Guidance Lymphnode Biopsy: 64170 Lymphnode Procedure Time Out Time Out Informed [...] I get them. Feliciano Castellon MD Pager: [facility] [address] [place] [address], [address] [place] [phone] Office: Orders: Orders Biopsy 12/10/24 N63.22 - Unspecified lump in the left breast, upper inner quadrant Coding Level of Care Code Attention Kalani Diagnoses Mass of upper inner quadrant of left napoleon (more content not included)... Normal [facility] Surgery Visit Reporton 12-09 Surgery Visit Report [facility] [address] [place] [address] OFFICE VISIT Date of Service: 12/09/24 MR#: [id number] Acct: [id number] Name: HOWARD HALL Rep #: [id number] : 1980 Provider: Dr. Feliciano miles MD Age/Sex: 43/F Location: [facility] Status: Signed Intake Vital Signs 08/15/17 21:48 [...] No Known Allergies Allergy (Verified 12/09/24 14:02) PFSH Medical History (Updated 12/09/24 @ 14:09 by [...] for further biopsy. Feliciano Castellon MD Pager: [facility] [address] [facility], [address] [place] [address] Office: Medications: Discontinued ibuprofen (more content not included)... Normal [facility] Breast imaging reportOrdered By: Elsy Sarah on 12-05-2024 Study report [facility] Services [address] [place] [address] DIAG MAMM W/CAD, BILAT MR#: [id number] Acct: [id number] Name: HOWARD HALL Rep #: [id number] : 1980 F 43 From: Kamilah Sarah MD PCP: Dr. David Michael, Status: REG CLI Study:DIAG MAMM W/CAD, BILAT Date of Exam: 12/04/24 Exam# [id number] Ordering Dr: David Michael DO EXAM: BREAST [...] be mailed to the patient. Reading Location: [facility] CC: Dr. David Michael, DO ~ Svp Monetization: Signed [facility] Study report [facility] Services [address] [place] [address] Bilat Brst Mika Stand Alone MR#: [id number] Acct: [id number] Name: HOWARD HALL Rep #: [id number] : 1980 F 43 From: Kamilah Sarah MD PCP: Dr. David Michael DO Status: REG CLI Study:Bilat Brst Mika Stand Alone Date of Exa m: 12/04/24 Exam# [id number] Ordering Dr: David Michael DO EXAM: BREAST [...] be mailed to the patient. Reading Location: [facility] CC: Dr. David Michael DO ~ Svp Monetization: [facility]-04-2024 [facility] Brst Mika Stand Alone [facility] [address] [place] [address] Bilat Brst Mika Stand Alone MR#: [id number] Acct: [id number] Name: HOWARD HALL Rep #: [id number] : 1980 F 43 From: Elsy Sarah MD PCP: Dr. David Michael DO Status: REG CLI Study: Bilat Brst Mika Stand Alone Date of Exam: 02/21 Exam# [id number] Ordering Dr: David Michael DO EXAM: BREAST [...] be mailed to the patient. Reading Location: [facility] CC: Dr. David Michael DO Svp Monetization: Signed Normal [facility] Breast Limited Unilateralon 12-04-2024 Breast Limited Unilateral [facility] Imaging Services [address] [place] [address] Breast Limited Unilateral MR#: [id number] Acct: [id number] Name: HOWARD HALL Rep #: [id number] : 1980 F 43 From: Elsy Sarah MD PCP: Dr. David Michael DO Status: [facility] CLI Study: Breast Limited Unilateral Date of Exam: Exam# [id number] Ordering Dr: David Michael DO EXAM: BREAST [...] be mailed to the patient. Reading Location: [facility] CC: Dr. David Michael DO Svp Monetization: Signed Normal [facility] DIAG MAMM W/CAD, BILATon DIAG MAMM W/CAD, BILAT [facility] [address] [place], [place] [address] DIAG MAMM W/CAD, BILAT MR#: [id number] Acct: [id number] Name: VICKEYHOWARD Rep #: [id number] : 1980 F 43 From: Elsy Sarah MD PCP: Dr. David Michael DO Status: REG CLI Study: DIAG MAMM W/CAD, BILAT Date of Exam: 12/04/24 Exam# [id number] Ordering Dr: David Michael DO EXAM: BREAST [...] be mailed to the patient. Reading Location: [id number] CC: Dr. David Michael, Svp Monetization: Signed Normal [facility] Quantiferon TB-Gold+on 11-16 QFT MITOGEN DANIEL > 10.00 Normal . [facility] Comment on above: Performed By: #### L 500.4050, L100.0100, L501.9520, L3400.8000 ####[facility] [address] [place], [address] QFT NIL VALUE 0.05 IU/mL Normal . [facility] Comment on above: Performed By: #### L 500.4050, L100.0100, L501.9520, L3400.8000 ####[facility] [address] [place], [address] QFT TB GOLD+ Comment Normal . [facility] Comment on above: Result Comment: Oswaldo tiFERON-TB [...] By: #### L 500.4050, L100.0100, L501.9520, L3400.8000 ####[facility] [address] [place], [address] QFT TB POS CRIT Negative Normal Negative [facility] Comment on above: Result Comment: No r [...] interferon gamma. Chemiluminescence immunoassay methodology Performed at: [address] [id number] Records Management Director: Mendez Parmar PhD, Phone: [phone] Performed By: #### L 500.4050, L100.0100, L501.9520, L3400.8000 ####[facility] [address] [place], [address] QFT TB1+ AG DANIEL 0.10 IU/mL Normal . [facility] Comment on above: Performed By: #### L 500.4050, L100.0100, L501.9520, L3400.8000 ####[facility] [address] [place], [address] QFT TB2+ AG DANIEL 0.10 IU/mL Normal . [facility] Comment on above: Performed By: #### L 500.4050, L100.0100, L501.9520, L3400.8000 ####[facility] [address] [place], [address] Absolute lymphocyte countOrd ered By: David Michael on 11-14-2024 Lymphocytes Auto (Unsp spec) [#/Vol] 1.72 10*3/uL 0.83-4.51 [facility] Absolute neutrophil countOrd ered By: David Michael on 11-14-2024 Neutrophils (Bld) [#/Vol] 2.6 10*3/uL 2.0-7.7 [facility] Anion gap in Serum or Plasma Ordered By: David Michael on 11-14-2024 Anion gap [Moles/Vol] 13 mmol/L 5-15 [facility] Automated lymphocyte count a s percentage of total leukocytesOrdered By: David Michael on 11-14-2024 Lymphocytes/100 WBC Auto (Unsp spec) 35.2 % - [facility] BUN/creatinine ratioOrdered By: David Michael on 11-14-2024 Urea nitrogen/Creatinine [Mass ratio] 14.9 mg/mg 10- [facility] Basophil percentageOrdered B y: David Michael on 11-14-2024 Basophils/100 WBC (Bld) 0.6 % 0-1 [facility] Bilirubin, totalOrdered By: David Michael on 11-14-2024 Bilirubin [Mass/Vol] 0.27 mg/dL 0.00-1.30 [facility] CBC W/Diff, Automatedon 10-29 Absolute Lymph 1.72 X10 3/uL Normal 0.83-4.51 [facility] Comment on above: Performed By: #### L 500.4050, L100.0100, L501.9520, L3400.8000 ####[facility] [address] [place], [address] Absolute Neut 2.6 X10 3/uL Normal 2.0-7.7 [facility] Comment on above: Performed By: #### L 500.4050, L100.0100, L501.9520, [id number] ####[facility] [address] [place], [address] Basophils/100 WBC (Bld) 0.6 % Normal 0-1 [facility] Comment on above: Performed By: #### L 500.4050, L100.0100, L501.9520, L3400.8000 ####[facility] [address] [place], [address] Eosinophils/100 WBC (Bld) 3.3 % Normal 0-5 [facility] Comment on above: Performed By: #### L 500.4050, L100.0100, L501.9520, L3400.8000 ####[facility] [address] [place], [address] Erythrocyte distribution width (RBC) [Ratio] 12.0 % Normal 11.6-14.6 [facility] Comment on above: Performed By: #### L 500.4050, L100.0100, L501.9520, L3400.8000 ####[facility] [address] [place], [address] Hematocrit (Bld) [Volume fraction] 38.0 % Normal 37-47 [facility] Comment on above: Performed By: #### L 500.4050, L100.0100, L501.9520, L3400.8000 ####[facility] [address] [place], [address] Hemoglobin (Bld) [Mass/Vol] 12.8 g/dL Normal 12.0-15.0 [facility] Comment on above: Performed By: #### L 500.4050, L100.0100, L501.9520, L3400.8000 ####[facility] [address] [place], [address] IG% 0.200 Normal 0.0-0.9 [facility] Comment on above: Result Comment: IG% - Immature Granulocytes (promyelocytes, myelocytes and metamyelocytes) > 1% indicates that a LEFT SHIFT is Present. Performed By: #### L 500.4050, L100.0100, L501.9520, L3400.8000 ####[facility] [address] [place], [address] Lymphocytes/100 WBC (Bld) 35.2 % Normal 19-41 [facility] Comment on above: Performed By: #### L 500.4050, L100.0100, L501.9520, L3400.8000 ####[facility] [address] [place], [address] MCH (RBC) [Entitic mass] 28.9 pg Normal 27.0-32.0 [facility] Comment on above: Performed By: #### L 500.4050, L100.0100, L501.9520, L3400.8000 ####[facility] [address] [place], [address] MCHC (RBC) [Mass/Vol] 33.7 g/dL Normal 32-36 [facility] Comment on above: Performed By: #### L 500.4050, L100.0100, L501.9520, L3400.8000 ####[facility] [address] [place], [address] MCV (RBC) [Entitic vol] 85.8 fL Normal 81-99 [facility] Comment on above: Performed By: #### L 500.4050, L100.0100, L501.9520, L3400.8000 ####[facility] [address] [place], [address] Monocytes/100 WBC (Bld) 7.8 % Normal 0-10 [facility] Comment on above: Performed By: #### L 500.4050, L100.0100, L501.9520, L3400.8000 ####[facility] [address] [place], [address] Neutrophils/100 WBC (Bld) 52.9 % Normal 47-70 [facility] Comment on above: Performed By: #### L 500.4050, L100.0100, L501.9520, L3400.8000 ####[facility] [address] [place], [address] Nucleated RBC (Bld) [#/Vol] 0 10*3/uL Normal 0-5 [facility] Comment on above: Performed By: #### L 500.4050, L100.0100, L501.9520, L3400.8000 ####[facility] [address] [place], [address] Platelet mean volume (Bld) [Entitic vol] 11.1 fL Normal 6.2-12.0 [facility] Comment on above: Performed By: #### L 500.4050, L100.0100, L501.9520, L3400.8000 ####[facility] [address] [place], [address] Platelets (Bld) [#/Vol] 259 10*3/uL Normal 150-450 [facility] Comment on above: Performed By: #### L 500.4050, L100.0100, L501.9520, L3400.8000 ####[facility] [address] [place], [address] RBC (Bld) [#/Vol] 4.43 10*6/uL Normal 4.2-5.4 [facility] Comment on above: Performed By: #### L 500.4050, L100.0100, L501.9520, L3400.8000 ####[facility] [address] [place], [address] RDW SD 37.8 fl Normal 35.1-43.9 [facility] Comment on above: Performed By: #### L 500.4050, L100.0100, L501.9520, L3400.8000 ####[facility] [address] [place], [address] WBC (Bld) [#/Vol] 4.9 10*3/uL Normal 4.4-11.[address] [facility] Comment on above: Performed By: #### L 500.4050, L100.0100, L501.9520, L3400.8000 ####[facility] [address] [place], [address] Carbon dioxide, total [Moles /volume] in Central venous bloodOrdered By: David Michael on 11-14-2024 CO2 [Moles/Vol] 24.8 mmol/L 21.0-32.0 [facility] Chloride assayOrdered By: Jluis Michael on 11-14-2024 Chloride [Moles/Vol] 103 mmol/L 98-108 [facility] Comprehensive Metabolic Prof ilon 11-14-2024 Albumin [Mass/Vol] 4.5 g/dL Normal 3.5-5.[address] [facility] Comment on above: Performed By: #### L 500.4050, L100.0100, L501.9520, L3400.8000 ####[facility] [address] [place], [address] Albumin/Globulin [Mass ratio] 1.5 {ratio} Normal 0.9-2.4 [facility] Comment on above: Performed By: #### L 500.4050, L100.0100, L501.9520, L3400.8000 ####[facility] [address] [place], [address] ALK PHOS 96 U/L Normal 35-104 [facility] Comment on above: Performed By: #### L 500.4050, L100.0100, L501.9520, L3400.8000 ####[facility] [address] [place], [address] ALT [Catalytic activity/Vol] 26 U/L Normal <=34 [facility] Comment on above: Performed By: #### L 500.4050, L100.0100, L501.9520, L3400.8000 ####[facility] [address] [place], [address] AST [Catalytic activity/Vol] 30 U/L Normal <=31 [facility] Comment on above: Performed By: #### L 500.4050, L100.0100, L501.9520, L3400.8000 ####[facility] [address] [place], [address] Bilirubin [Mass/Vol] 0.27 mg/dL Normal 0.00-1.30 [facility] Comment on above: Performed By: #### L 500.4050, L100.0100, L501.9520, L3400.8000 ####[facility] [address] [place], [address] BUN/CRE 14.9 RATIO Normal 10-20 [facility] Comment on above: Performed By: #### L 500.4050, L100.0100, L501.9520, L3400.8000 ####[facility] [address] [place], [address] Calcium [Mass/Vol] 10.0 mg/dL Normal 7.6-11.[address] [facility] Comment on above: Performed By: #### L 500.4050, L100.0100, L501.9520, L3400.8000 ####[facility] [address] [place], [address] Chloride [Moles/Vol] 103 mmol/L Normal 98-108 [facility] Comment on above: Performed By: #### L 500.4050, L100.0100, L501.9520, L3400.8000 ####[facility] [address] [place], [address] CO2 [Moles/Vol] 24.8 mmol/L Normal 21.0-32.0 [facility] Comment on above: Performed By: #### L 500.4050, L100.0100, L501.9520, L3400.8000 ####[facility] [address] [place], [address] Creatinine [Mass/Vol] 0.89 mg/dL Normal 0.70-1.20 [facility] Comment on above: Performed By: #### L 500.4050, L100.0100, L501.9520, L3400.8000 ####[facility] [address] [place], [address] GAP 13 Normal 5-15 [facility] Comment on above: Performed By: #### L 500.4050, L100.0100, L501.9520, L3400.8000 ####[facility] [address] [place], [address] GFR/1.73 sq M.predicted among non-blacks MDRD (S/P/Bld) [Vol rate/Area] 82 mL/min/{1.73_m2} Normal >60 [facility] Comment on above: Result Comment: mL/m in/1.73m2 CKD-EPI Creatinine Equation (2020) Performed By: #### L 500.4050, L100.0100, L501.9520, L3400.8000 ####[facility] [address] [place], [address] Globulin (S) [Mass/Vol] 3.0 g/dL Normal 2.2-4.2 [facility] Comment on above: Performed By: #### L 500.4050, L100.0100, L501.9520, L3400.8000 ####[facility] [address] [place], [address] Glucose [Mass/Vol] 110 mg/dL High 70-[address] [facility] Comment on above: Performed By: #### L 500.4050, L100.0100, L501.9520, L3400.8000 ####[facility] [address] [place], [address] Potassium [Moles/Vol] 3.7 mmol/L Normal 3.3-5.1 [facility] Comment on above: Performed By: #### L 500.4050, L100.0100, L501.9520, L3400.8000 ####[facility] [address] [place], [address] Sodium [Moles/Vol] 141 mmol/L Normal 133-[address] [facility] Comment on above: Performed By: #### L 500.4050, L100.0100, L501.9520, L3400.8000 ####[facility] [address] [place], [address] T PROT 7.4 g/dL Normal 5.9-8.4 [facility] Comment on above: Performed By: #### L 500.4050, L100.0100, L501.9520, L3400.8000 ####[facility] [address] [place], [address] Urea nitrogen [Mass/Vol] 13 mg/dL Normal 4-19 [facility] Comment on above: Performed By: #### L 500.4050, L100.0100, L501.9520, L3400.8000 ####[facility] [address] [place], [address] Eosinophil percentageOrdered By: David Michael on 11-14-2024 Eosinophils/100 WBC (Bld) 3.3 % 0-5 [facility] Erythrocyte distribution wid th ratioOrdered By: David Michael on 11-14-2024 Erythrocyte distribution width (RBC) [Ratio] 12.0 % 11.6-14.6 [facility] Erythrocyte distribution wid th standard deviationOrdered By: David Michael on 11-14-2024 Erythrocyte distribution width (RBC) [Ratio] 37.8 fl 35.1-43.9 [facility] Glomerular filtration rate ( GFR) estimation/1.73 sq m using serum, plasma, or whole bOrdered By: David Michael on 11-14-2024 GFR/1.73 sq M.predicted among non-blacks MDRD (S/P/Bld) [Vol rate/Area] 82 mL/min/{1.73_m2} >60 [facility] Comment on above: mL/min/1.73m2 CKD-EP I Creatinine Equation (2020) Hematocrit Auto (Bld) [Volum e fraction]Ordered By: David Michael on 11-14-2024 Hematocrit (Bld) [Volume fraction] 38.0 % 37-47 [facility] Hemoglobin measurementOrdere d By: David Michael on 11-14-2024 Hemoglobin (Bld) [Mass/Vol] 12.8 g/dL 12.0-15.0 [facility] Immature granulocytes/100 WB C Auto (Bld)Ordered By: David Michael on 11-14-2024 Immature granulocytes/100 WBC (Bld) 0.200 % 0.0-0.9 [facility] Comment on above: IG% - Immature Granu locytes (promyelocytes, myelocytes and metamyelocytes) > 1% indicates that a LEFT SHIFT is Present. Laboratory - Chemistry and C hemistry - challengeOrdered By: David Michael on 11-14-2024 AST [Catalytic activity/Vol] 30 U/L <32 [facility] MCV (mean corpuscular volume ) determinationOrdered By: David Michael on 11-14-2024 MCV (RBC) [Entitic vol] 85.8 fL 81-99 [facility] Mean corpuscular hemoglobin (MCH) determinationOrdered By: David Michael on 11-14-2024 MCH (RBC) [Entitic mass] 28.9 pg 27.0-32.0 [facility] Mean corpuscular hemoglobin concentration (MCHC) determinationOrdered By: David Michael on 11-14-2024 MCHC (RBC) [Mass/Vol] 33.7 g/dL 32-36 [facility] Mean platelet volume determi nationOrdered By: David Michael on 11-14-2024 Platelet mean volume (Bld) [Entitic vol] 11.1 fL 6.2-12.0 [facility] Monocyte percentageOrdered B y: David Michael on 11-14-2024 Monocytes/100 WBC (Bld) 7.8 % 0-10 [facility] Neutrophil percentageOrdered By: David Michael on 11-14-2024 Neutrophils/100 WBC (Bld) 52.9 % 47-70 [facility] Nucleated red blood cell per centageOrdered By: David Michael on 11-14-2024 Nucleated RBC/100 WBC (Bld) [Ratio] 0 % 0-5 [facility] Platelet countOrdered By: Jluis Michael on 11-14-2024 Platelets (Bld) [#/Vol] 259 10*3/uL 150-450 [facility] Potassium measurement (mass/ volume)Ordered By: David Michael on 11-14-2024 Potassium (Unsp spec) [Mass/Vol] 3.7 mmol/L 3.3-5.1 [facility] Qualitative QuantiFERON-TB g old in tube testOrdered By: David Michael on 11-14-2024 M. tuberculosis tuberculin stim IFN-g Ql (Bld) 0.10 IU/mL . [facility] RBC Auto (Bld) [#/Vol]Ordere d By: David Michael on 11-14-2024 RBC (Bld) [#/Vol] 4.43 10*6/uL 4.2-5.4 [facility] Serum creatinine measurement (mass/volume)Ordered By: David Michael on 11-14-2024 Creatinine [Mass/Vol] 0.89 mg/dL 0.70-1.20 [facility] Serum globulin measurementOr dered By: David Michael on 11-14-2024 Globulin (S) [Mass/Vol] 3.0 g/dL 2.2-4.2 [facility] Serum glucose measurement (m ass/volume)Ordered By: David Michael on 11-14-2024 Glucose [Mass/Vol] 110 mg/dL High 70-[address] [facility] Serum or plasma alanine rainey otransferase (ALT) measurementOrdered By: David Michael on 11-14-2024 ALT [Catalytic activity/Vol] 26 U/L <35 [facility] Serum or plasma albumin ceasar urement (mass/volume)Ordered By: David Michael on 11-14-2024 Albumin [Mass/Vol] 4.5 g/dL 3.5-5.[address] [facility] Serum or plasma albumin/glob ulin mass ratioOrdered By: David Michael on 11-14-2024 Albumin/Globulin [Mass ratio] 1.5 {ratio} 0.9-2.4 [facility] Serum or plasma alkaline dasia sphatase measurementOrdered By: David Michael on 11-14-2024 ALP [Catalytic activity/Vol] 96 U/L 35-104 [facility] Serum or plasma calcium ceasar urement (mass/volume)Ordered By: David Michael on 11-14-2024 Calcium [Mass/Vol] 10.0 mg/dL 7.6-11.[address] [facility] Serum or plasma urea nitroge n measurement (mass/volume)Ordered By: David Michael on 11-14-2024 Urea nitrogen [Mass/Vol] 13 mg/dL 4-19 [facility] Sodium levelOrdered By: David Michael on 11-14-2024 Sodium [Moles/Vol] 141 mmol/L 133-[address] [facility] TSH DL <= 0.005 mIU/L QnOrde red By: David Michael on 11-14-2024 TSH Qn 1.770 uIU/mL 0.300-4.200 [facility] Thyroid Stim Hormone (TSH)on 11-14-2024 TSH 1.770 uIU/mL Normal 0.300-4.200 [facility] Comment on above: Performed By: #### L 500.4050, L100.0100, L501.9520, L3400.8000 ####[facility] [address] [place], [place], [address] Total proteinOrdered By: Ana Michael on 11-14-2024 Protein [Mass/Vol] 7.4 g/dL 5.9-8.[address] [facility] White blood cell (WBC) count Ordered By: David Michael on 11-14-2024 WBC (Bld) [#/Vol] 4.9 10*3/uL 4.4-11.[address] [facility] ED PROV NOTEon 08-14-2023 ED PROV NOTE HNO ID: [id number] Author: FLORIAN VILLA MD Service: Emergency Medicine [...] 08/14/23 0217 08/14/23 0217 08/14/23 0217 08/14/23 02108/14/23 0217 08/14/23 02108/14/23 021 166/103 (!) 98 36.4 ?C (97.5 ?F) [...] rash. Neurolog (more content not included)... Normal [facility] FLUABV+SARS-CoV-2+RSV Pnl Re sp AMINAH+probeon 08-14-2023 FLUABV+SARS-CoV-2+RSV Pnl Resp AMINAH+probe COVID 19 RESULT: Not detected The method used is RT-PCR or an equivalent NAAT method. Reference Range(the expected result in uninfected individuals): Not detected INFLUENZA A PCR: Not detected INFLUENZA B PCR: Not detected RSV PCR: Not detected Normal [facility] Comment on above: Performed By: #### 9 5941-1 #### [facility] CLIA [id number] [address] [place] [id number] [place] YARELY Kennedy MIKA BILon 2021 YARELY Kennedy MIKA AJ * * *Final Report* * * DATE OF EXAM: Apr 20 2022 3:53PM WRW [id number] - YARELY Kennedy MIKA AJ / PROCEDURE REASON: multiple diagnoses * * * * Physician Interpretation * * * * RESULT: #[id number] - YARELY Kennedy MIKA AJ #[id number] - [facility] US BREAST LTD LT BILATERAL DIGITAL DIAGNOSTIC [...] exams dated: 05/03/2016 mammogram, 11/01/2016 mammogram - [facility], and 04/20/2016 mammogram - [facility]. The tissue of both breasts [...] exams dated: 05/03/2016 mammogram, 11/01/2016 mammogram - [facility], and 04/20/2016 mammogram - [facility]. Real-time ultrasound of the left [...] Health, Family Medicine, and Medical/Surgical Oncology, the [facility] has carefully reviewed the data and reached [...] their providers when to stop screening mammograms. Heater Installer(s): Michelle Barber, [facility]; Anayeli Oliver RT(R)(M), [facility] OVERALL STUDY BIRADS: 1 Negative Svp Monetization: Arpita Transcribe Date/Time: Apr 20 2022 3:38P Dictated by: BEREKET GANDHI MD This examination was interpreted and the report reviewed and electronically signed by: BEREKET GANDHI MD on Apr 20 2022 4:35PM EST [id number] Normal [facility] US BREAST LTD LTon 04-20 [facility] US BREAST LTD LT * * *Final Report* * * DATE OF EXAM: Apr 20 2022 4:11PM WRU [id number] - [facility] Brevity BREAST LTD LT / PROCEDURE REASON: multiple diagnoses * * * * Physician Interpretation * * * * #[id number] - [facility] DIAG W MIKA AJ #[id number] - [facility] US BREAST LTD LT BILATERAL DIGITAL DIAGNOSTIC [...] exams dated: 05/03/2016 mammogram, 11/01/2016 mammogram - [facility], and 04/20/2016 mammogram - [facility]. The tissue of both breasts [...] exams dated: 05/03/2016 mammogram, 11/01/2016 mammogram - [facility], and 04/20/2016 mammogram - [facility]. Real-time ultrasound of the left [...] Health, Family Medicine, and Medical/Surgical Oncology, the [facility] has carefully reviewed the data and reached [...] their providers when to stop screening mammograms. Heater Installer(s): Michelle Barber, [facility]; RT Gwendolyn(R)(M), [facility] OVERALL STUDY BIRADS: 1 Negative Svp Monetization: Arpita Transcribe Date/Time: Apr 20 2022 3:38P Dictated by : BEREKET GANDHI MD This examination was interpreted and the report reviewed and electronically signed by: BEREKET GANDHI MD on Apr 20 2022 4:35PM EST [id number] Normal [facility] CNOVon 03-01-2022 CNOV Office Visit (OBGYWM ) -- HOWARD HALL ([id number]) 1980 F Date Time Provider Department 03/01/22 3:30 PM FAITH CLEMNETS OBGYWManav During your visit today, we recorded the following information about you: Blood pressure Weight 120/80 69.4 kg Faith Clements APRN.CNP 03/01/2022 4:30 PM Signed BREAST LUMP HISTORY: This is a 41 year old female Presents with breast mass left side, about 10 days Tenderness slight but feeling prick sensation Change in sizeNo Any history breast mass No Caffeine use Yes 1-2 cups/day Last [id number] normal Any previous breast surgery No Any [...] 1 tablet by mouth once daily. - Xrntwhoz-Ji-Gib-Fe-FA ( VITAMIN) tab Take 1 tablet by [...] Diagnosis:Breast pain [N64.4] Order(s):US BREAST LTD LT [4207121] Order #: [id number] FUTURE YARELY DIAGNOSTIC BILAT [2870653] Order #: [id number] FUTURE Prescriptions as of 03/01/2022 - citalopram [...] 1 tablet by mouth once daily. - Fzhmgead-Uw-Eas-Fe-FA ( VITAMIN) tab (Discontinued) Take 1 tablet by mouth. - IRON, FERROUS SULFATE, ORAL (Discontinued) Take 27 mg by mouth once daily. Encounter Status:Closed by FAITH CLEMENTS on 03/01/22 Normal [facility] Vital Signs Date Time Vital Sign Value Performing Clinician Pascalei clau 01-08-2025 15:54-0400 Body temperature 97.3 [degF] Dr. David Michael DO Work Phone: [facility] 01-08-2025 15:54-0400 Diastolic blood pressure 90 mm[Hg] Dr. David Michael DO Work Phone: [facility] 01-08-2025 15:54-0400 Heart rate 100 /min Dr. David Michael DO Work Phone: [facility] 01-08-2025 15:54-0400 Respiratory rate 20 /min Dr. David Michael DO Work Phone: [facility] 01-08-2025 15:54-0400 SaO2% (BldA) [Mass fraction] 98 % Dr. David Michael DO Work Phone: [facility] 01-08-2025 15:54-0400 Systolic blood pressure 116 mm[Hg] Dr. David Michael DO Work Phone: [facility] 01-08-2025 14:02-0400 Body height 165.[address] David Michael DO Work Phone: [facility] 01-08-2025 14:02-0400 Body mass index (BMI) [Ratio] 24.2 kg/m2 Dr. David Michael DO Work Phone: [facility] 01-08-2025 14:02-0400 Body weight [address] David Michael DO Work Phone: [facility] 12-25-2024 16:04-0400 Body height 165.[address] David Michael DO Work Phone: [facility] 12-25-2024 16:04-0400 Body mass index (BMI) [Ratio] 24.5 kg/m2 Dr. David Michael DO Work Phone: [facility] 12-25-2024 16:04-0400 Body temperature 99.7 [degF] Dr. David Michael DO Work Phone: [facility] 12-25-2024 16:04-0400 Body weight 66.[address] David Michael DO Work Phone: [facility] 12-25-2024 16:04-0400 Diastolic blood pressure 104 mm[Hg] Dr. David Michael DO Work Phone: [facility] 12-25-2024 16:04-0400 Heart rate 90 /min Dr. David Michael DO Work Phone: [facility] 12-25-2024 16:04-0400 Respiratory rate 16 /min Dr. David Michael DO Work Phone: [facility] 12-25-2024 16:04-0400 SaO2% (BldA) [Mass fraction] 98 % Dr. David Michael DO Work Phone: [facility] 12-25-2024 16:04-0400 Systolic blood pressure 169 mm[Hg] Dr. David Michael DO Work Phone: [facility] 12-09-2024 14:01-0400 Body height 166.[address] David Michael DO Work Phone: [facility] 12-09-2024 14:01-0400 Body mass index (BMI) [Ratio] 24 kg/m2 Dr. David Michael DO Work Phone: [facility] 12-09-2024 14:01-0400 Body temperature 97.5 [degF] Dr. David Michael DO Work Phone: [facility] 12-09-2024 14:01-0400 Body weight 66.[address] David iMchael DO Work Phone: [facility] 12-09-2024 14:01-0400 Diastolic blood pressure 92 mm[Hg] Dr. David Michael DO Work Phone: [facility] 12-09-2024 14:01-0400 Heart rate 93 /min Dr. David Michael DO Work Phone: [facility] 12-09-2024 14:01-0400 Respiratory rate 18 /min Dr. David Michael DO Work Phone: [facility] 12-09-2024 14:01-0400 SaO2% (BldA) [Mass fraction] 98 % Dr. David Michael DO Work Phone: [facility] 12-09-2024 14:01-0400 Systolic blood pressure 169 mm[Hg] Dr. David Michael DO Work Phone: [facility] 03-01-2022 15:48-0400 Body weight 69.4 kg Faith Wyalusing DYE STAND LOADER.[employer] Work Phone: [facility] 03-01-2022 15:48-0400 Diastolic blood pressure 80 mm[Hg] Faith Kathy DYE STAND LOADER.[employer] Work Phone: [facility] 03-01-2022 15:48-0400 Systolic blood pressure 120 mm[Hg] Faith Wyalusing DYE STAND LOADER.[employer] Work Phone: [facility] Encounters Encounter Date Encounter Type Care Provider Facility Start: 01-29-2025 ambulatory Arnaud Hubbard ty:[facility] Start: 01-17-2025 ambulatory Arnaud Hubbard ty:[facility] Start: 01-13-2025 End: 01-13-[address] David Michael DO Work Phone: [facility] Work Phone: Start: 01-13-2025 End: 01-13-[address] Arnaud Borja MD -[facility] Work Phone: Start: 01-13-2025 End: 01-13-2025 ambulatory Arnaud Borja Facility:[facility] Start: 01-08-2025 Non-patient / Non-visit Dr. Shilpa Castellon MD -[facility] Start: 01-08-2025 End: 01-08-2025 Admission to same day surgery center Dr. Feliciano Castellon [facility] Start: 01-08-2025 End: 01-08-[address] David Michael DO Work Phone: [facility] Work Phone: Start: 12-25-[address] Pastor Borja MD -[facility] Start: 12-25-2024 End: 12-25-[address] Arnaud Borja MD -[facility] Work Phone: Start: 12-25-2024 End: 12-25-[address] David Michael DO Work Phone: [facility] Work Phone: Start: 12-10-2024 End: 12-10-[address] Feliciano Castellon MD -[facility] Work Phone: Start: 12-10-2024 End: 12-10-[address] David Michael DO Work Phone: [facility] Work Phone: Start: 12-09-2024 End: 12-09-[address] Feliciano Castellon MD -[facility] Work Phone: Start: 12-09-2024 End: 12-10-2024 ambulatory Feliciano Castellon Facility:[facility] Start: 12-04-2024 End: 12-04-[address] David Michael DO Work Phone: [facility] Work Phone: Start: 12-04-2024 End: 12-04-[address] David Michael DO -[facility] Work Phone: Start: 12-04-2024 End: 12-04-2024 ambulatory David Michael Facility:[facility] Start: 11-14-2024 End: 11-14-[address] David Michael DO -[facility] Start: 11-14-2024 End: 11-14-2024 ambulatory David Michael Facility:[facility] Start: 08-14-2023 End: 08-14-2023 Emergency department patient visit DAVID MICHAEL Facility:[facility] Start: 04-20-2022 End: 04-20-2022 ambulatory DAVID MICHAEL Facility:[facility] Start: 03-01-2022 End: 03-01-2022 ambulatory FAITH CLEMENTS Facility:[facility] Start: 03-01-2022 End: 03-01-2022 Patient encounter procedure Faith Clements DYE STAND LOADER.SOUVENIR AND NOVELTY MAKER Work Phone: OB/Gynecology Comment on above: Fibrocystic breast c hanges, left (Primary Dx); Breast pain Procedures Date Procedure Procedure Detail Performing Clinician Start: 01-13-2025 CT of thorax, abdomen and pelvis with contrast Dr. David Michael DO Work Phone: Start: 01-08-2025 Plain chest X-ray Dr. David Michael DO Work Phone: Start: 01-08-2025 Implantation to cardiovascular system Dr Perlita Michael DO Work Phone: Start: 01-08-[address] David Michael DO Work Phone: Start: 12-25-2024 Follicle stimulating hormone measurement Dr. David Michael DO Work Phone: Comment on above: FEMALE:Follicular: 1.4 - 18.1 mIU/mLMidc ycle: 3.4 - 33.4 mIU/mLLuteal: 1.5 - 9.1 mIU/mLPost Menopause: 23.0 - 116.3 mIU/mLMALE: 1.4 - 18.1 mIU/mL Start: 12-25-[address] David Michael DO Work [...] the productionof interferon gamma. Chemiluminescence immunoassaymethodologyPerformed at: [facility] [place] [id number] Director: Mendez Parmar PhD, Phone: [phone] Start: 04-20-2016 Mammography Faith Clements APRN.SOUVENIR AND NOVELTY MAKER Work Phone: Plan of Treatment Date Care Activity Detail Author Start: 01-08-2025 Patient discharge [facility] Start: 01-08-2025 Anesthesia access ce ntral venous circulation ANESTH VASCULAR ACCESS [facility] Start: 01-08-2025 Insj tunneled ctr va d w/subq port age 5 yr/> INSERT TUNNELED CV CATH [facility] Start: 01-08-2025 Fluoroscopic guidance W [facility] Start: 12-25-2024 Urine test [facility] Start: 12-25-2024 Cancer Ag 15-3 [Pres ence] in Serum or Plasma [facility] Start: 12-25-2024 Cancer Ag 27-29 [Pre sence] in Serum or Plasma [facility] Start: 12-25-2024 CBC W Auto Different ial panel - Blood [facility] Start: 12-25-2024 Comprehensive metabo lic 2000 panel - Serum or Plasma [facility] Start: 12-25-2024 Follitropin and Lutr opin panel [Units/volume] - Serum or Plasma [facility] Start: 12-25-2024 [facility] Start: 12-04-2024 Digital breast tomosynthesis bilateral BREAST TOMOSYNTHESIS BI [facility] Start: 03-31-2022 Influenza vaccination INFLUENZA (#1) [facility] Start: 04-12-2021 HPV TESTING HPV TESTING [facility] Start: 04-12-2021 PAP TESTING PAP TESTING [facility] Start: 2020 Mammography MAMMOGRAM [facility] Start: 12-24-1999 Urine microalbumin profile DTAP,TDAP ,TD (1 - Tdap) [facility] Start: 1992 Adult depression scr eening assessment DEPRESSION SCREENING [facility] Start: 1986 PNEUMOCOCCAL (1 - PCV) PNEUMOCOCCAL (1 - PCV) [facility] Start: 06-25-1981 COVID-19 VACCINE (#1) COVID-19 VACCI NE (#1) [facility] Alanine aminotransfe rase [Enzymatic activity/volume] in Serum or Plasma [facility] Albumin [Mass/volume ] in Serum or Plasma [facility] Alkaline phosphatase [Enzymatic activity/volume] in Serum or Plasma [facility] Anion gap in Serum o r Plasma [facility] Bilirubin, total measurement [facility] BUN/Creatinine ratio [facility] Calcium [Mass/volume ] in Serum or Plasma [facility] Carbon dioxide, tota l [Moles/volume] in Central venous blood [facility] Creatinine [Mass/vol ume] in Serum or Plasma [facility] End: 03-31-2023 Diagnostic mammography computer-aided detcj [facility] DIAGNOSTIC BILAT Radiology Routine Fibrocystic breast changes, left Breast pain 1 Occurrences starting 03/01/2022 until 03/31/2023 [facility] Work Phone: Comment on above: 1 Occurrences starti ng 03/01/2022 until 03/31/2023 Erythrocyte mean corpuscular volume determination [facility] Follicle stimulating hormone measurement [facility] Glucose [Mass/volume ] in Serum or Plasma [facility] Hematocrit [Volume Fraction] of Blood [facility] Hemoglobin [Mass/vol ume] in Blood [facility] Leukocytes [#/volume ] in Blood [facility] Lutropin [Units/volu me] in Serum or Plasma [facility] Mean corpuscular hemoglobin concentration determination [facility] Mean corpuscular hemoglobin determination [facility] Measurement of renal function [facility] Neutrophil count [facility] Neutrophil percent differential count [facility] Patient referral [facility] Work Phone: Platelets [#/volume] in Blood [facility] Positron emission tomography with computed tomography [facility] Potassium measurement [facility] Red blood cell count [facility] Red cell distributio n width determination [facility] Serum chloride measurement W [facility] Sodium measurement [facility] Total protein measurement [facility] Urea nitrogen [Mass/volume] in Serum or Plasma [facility] End: 03-31-2023 Us breast uni real time with image limited US BREAST LTD Radiology Routine Fibrocystic breast changes, left Breast pain 1 Occurrences starting 03/01/2022 until 03/31/2023 [facility] Work Phone: Comment on above: 1 Occurrences starti ng 03/01/2022 until 03/31/2023 [facility] Immunizations Immunization Date Immunization Notes Care Provider Fa rashida 08-18-2017 influenza, injectabl e, quadrivalent, preservative free Dr. David Michael DO Work Phone: [facility] Payers Date Payer Category Payer Self-pay 2022 Medicaid [id number] 2019 Medicaid [facility] [id number] 2019-Present [phone] [address] [place] [address] Medicaid [id number] 2019 Medicaid [id number] Self-pay SELF PAY INSURANCE [id number] Unknown [id number] Unknown [id number] Unknown [id number] Unknown [id number] Unknown [id number] Unknown [id number] Unknown [id number] Unknown [id number] Unknown [id number] Unknown [id number] Unknown [id number] Unknown [id number] Unknown [id number] Social History Date Type Detail Facility Start: 07-13-2015 Tobacco smoking stat [email or web address]IS Smokes tobacco daily [facility] History of tobacco use Cigarette Smoker [facility] Start: 07-13-2015 Cigarettes smoked current (pack per day) - Reported 0.5 [facility] Start: 07-13-2015 Tobacco use and exposure Smokeless tobacco non-user [facility] Start: 03-01-2022 Alcohol intake Current drinke r of alcohol (finding) [facility] Start: 02-09-2017 History SDOH Alcohol Comment occasionally, but not while [facility] Start: 1980 Sex Assigned At Female C [facility] Start: 02-19-2022 End: 03-01-2022 Exposure to SARS-CoV-2 (event) Not sure [facility] Work Phone: Start: 12-06-2024 End: 01-02-2025 Tobacco smoking status NHIS Current Light tobacco smoker [facility] Start: 06-18-2014 Alcohol Alcohol [facility] NEGATED: Highlighted row Not [facility] Medical Equipment Procedure Code Equipment Code Equipment Origin al Text Equipment Identifier Dates Insertion, vascular access port ([id number]) Vascular port/catheter [id number] FDA Start: 01-08-2025 Goals Date Patient Goal Desired Activity /State Mental Status Date Assessment Result Facility 01-08-2025 Cognitive function Voice/Name [facility] Work Phone: Clinical Notes 07-12-2017 to 01-14-2025 Note Date & Type Note Facility 01-14-2025 Radiology Diagnostic study note [facility] Imaging Services [address] [place] [address] CT Chest, Abd, Pel w/Contrast MR#: [id number] Acct: [id number] Name: HOWARD HALL Rep #: [id number] : 1980 F 44 From: Steve Tinoco MD PCP: Dr. David Michael, DO Status: REG CLI Study:CT Chest, Abd, Pel w/Contrast Date of E xam: 01/13/25 Exam# [id number] Ordering Dr: Arnaud Borja MD PROCEDURE: CT CHEST, ABD, PEL W/CONTRAST 01/13/2025 REASON FOR EXAM: STAGING BREAST CANCER TECHNIQUE: Chest, abdomen and pelvis CT with intravenous contrast. Coronal and Sagittal reconstruction series were provided. One or more dose reduction techniques were used (e.g., Automated exposure control, adjustment of the mA and/or kV according to patient size, use of iterative reconstruction technique. PATIENT PREPARATION: Per protocol ORAL CONTRAST TYPE: None. CONTRAST: Isovue VOLUME: 95mL RADIATION DOSE SUMMARY: CTDlvol: 32.50 mGy DLP: 753.47 mGycm COMPARISON: None. FINDINGS: CT CHEST: Lower neck: The thyroid gland is unremarkable. There is no supraclavicular lymphadenopathy. Mediastinum: No abnormal masses or lymphadenopathy. Heart and Vasculature: The heart size is normal. There is no pericardial effusion. The thoracic aorta is unremarkable. There is no calcific vascular disease of the thoracic aorta or coronary arteries evident. Lungs and Airways: The lungs are clear. There is no significant interstitial alveolar lung disease. There are no pulmonary nodules or masses. Pleura: There are no pleural effusions. Chest wall: There is no evidence of bony metastatic disease. There is a 3.4 x 2.0 cm mass in the upper inner quadrant of the left breast. There is a left axillary lymph node containing a biopsy clip. There is pectus excavatum deformity of the chest. There is a chemotherapy port in the right upper chest wall with the tip in the superior vena cava via the right internal jugular vein. CT ABDOMEN/PELVIS: Liver: There is nonspecific hepatomegaly. Gallbladder: Normal. Spleen: Normal. Pancreas: Normal. Adrenals: Normal. Kidneys: Normal. Bladder: Normal unenhanced appearance. Reproductive Organs: The uterus and ovaries are unremarkable. There is no free fluid in the pelvis. There is no pelvic or inguinal lymphadenopathy. Bowel: There is a small hiatal hernia. There is stool throughout the colon. Appendix: The appendix is not identified. Lymph nodes: There is no mesenteric or retroperitoneal lymphadenopathy. Vasculature: The abdominal aorta, inferior vena cava, and portal venous system are normal. Abdominal wall: There is a 2.8 cm in diameter umbilical hernia containing normalfat. Musculoskeletal: There is degenerative disc disease, L5-S1. CT/CT Chest, Abd, Pel w/Contrast IMPRESSION: 1. Known mass in the left breast consistent with carcinoma. 2. There is no evidence of metastatic disease. 3. Other findings as noted. Reading Location: [id number] CC: Dr. Arnaud Borja MD; Dr. David Michael, DO ~ Svp Monetization: Signed [facility] Work Phone: 01-08-2025 Consult note [facility] 01-08-2025 Consult note Note Date/Time January 08, 2025 1:53pm [facility] Medical Records Department [address] [place] [address] Pre-Anesthesia Evaluation 01/08/25 1352 MR#: [id number] Acct: [id number] Name: HOWARD HALL Rep #:[id number] : 1980 44 From: Clyde Starks MD PCP: Dr. David Michael, DO Status:REG SDC Y Race: C Location: [place] [address]- ASA Classification* ASA Classification ASA Classification: 2 [...] possible left Anesthesia History Anesthesia History - high school admissions representative: Anesthesia History - high school admissions representative Hx Hospitalization No 01/02/25 13:24 Any Problems [...] take am of surgery PONV PONV - high school admissions representative: PONV - high school admissions representative Female Yes 01/02/25 13:24 HX of Motion [...] 12/25/24 16:04 Respiratory Assessment Respiratory Assessment - high school admissions representative: Respiratory Tract Infection Hx - high school admissions representative Hx Respiratory Tract Infection No 01/02/25 13:24 STOP Sleep Apnea STOP Sleep Apnea - high school admissions representative: STOP Sleep Apnea - high school admissions representative Hx Hypertension No 01/02/25 13:24 Hx Sleep [...] 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 Use History - high school admissions representative: Tobacco Use History - high school admissions representative Tobacco Use Smoking Status Light Smoker (<10/day) 01/02/25 13:24 Hx Tobacco Use Yes 01/02/25 13:24 Years Smoking Packs Smoked per Day 0.5 01/02/25 13:24 Smoking Cessation Date was within the last 15 years Hx Smoking Cessation Date Hx Smoking Cessation Counseling Hematologic Medial History Hematologic Hx - high school admissions representative: 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 01/08/25 7183 <Electronically signed by Clyde Starks MD > Date _ Clyde Starks MD Cosigner Signature: Date CC: ~ Signed [facility] Work Phone: 1(202) 596-905806-11-2025 Radiology Diagnostic study note [facility] Imaging Services [address] [place] [address] 102171 Chest 1 View MR#: [id number] Acct: [id number] Name: HOWARD HALL Rep #: [id number] : 1980 F 44 From: Chilo Fleming MD PCP: Dr. David Michael, DO Status: [facility] Study:Chest 1 View Date of Exam: 5 Exam# [id number] Ordering Dr: Feliciano Burris MD PROCEDURE: CHEST [...] vena cava and right atrium. Reading Location: [facility] CC: Dr. Feliciano Castellon MD; Dr. David Michael DO ~ Svp Monetization: Signed [facility]06-11-2025 Consult note [facility] Medical Records Department [address] [place] [address] Anesthesia Postop Eval II 01/08/25 1530 MR#: [id number] Acct: [id number] Name: HOWARD HALL Rep #:[id number] : 1980 44 From: Clyde Starks MD PCP: Dr. David Michael DO Status:REG [facility] Race: C Location: [place] [address] Anesthesia Postop Eval I Sum Postop Eval Completion status Anesthesia document: Postop Eval 1 completed: Yes Anesthesia Postop Eval I Summary Anesthesia Postop Eval I Summary: Anesthesia Postop Eval I: Assessment Summary Airway patent Yes 01/08/25 15:08 AUTOMOTIVE PARTS COUNTER ASSISTANT.JDEF Spontaneous unlabored Yes 01/08/25 15:08 AUTOMOTIVE PARTS COUNTER ASSISTANT.JDEF respirations Mental status Awake 01/08/25 15:08 AUTOMOTIVE PARTS COUNTER ASSISTANT.JDEF nausea No 01/08/25 15:08 AUTOMOTIVE PARTS COUNTER ASSISTANT.JDEF Vomiting No 01/08/25 15:08 AUTOMOTIVE PARTS COUNTER ASSISTANT.JDEF Anesthesia Postop Eval I: Fluid Summary Crystalloid volume administer 300 01/08/25 15:08 AUTOMOTIVE PARTS COUNTER ASSISTANT.JDEF (ml) Colloids volume administered ( ml) Blood Product volume administered (ml) Total IV fluid infused 300 01/08/25 15:08 AUTOMOTIVE PARTS COUNTER ASSISTANT.JDEF Anesthesia Postop Eval I: Summary Notes Anesthesia Complication No 01/08/25 15:08 AUTOMOTIVE PARTS COUNTER ASSISTANT.JDEF Anesthesia Complication Comment: Post-operative progress note Anesthesia: Postop Eval II Evaluation Mental status: Awake Pain Level: 0 nausea: No Vomiting: No 01/08/25 1530 > Date _ Clyde Stacy Signature: Date CC: ~ Signed [facility]06-11-2025 Discharge summary [facility] Medical Records Department [address] [place] [address] Instructions for Home/Discharge Instructions 01/08/25 1507 MR#: [id number] Acct: [id number] Name: HOWARD HALL Rep #:[id number] : 1980 44 From: Feliciano salazar MD PCP: Dr. David Michael, DO Status:REG MNC Discharge Instructions Procedure Gallbladder Diet Discharge Diet: [...] Follow Up Care Please Follow Up With: Feliciaon Castellon MD When: Please call to schedule 2 week follow up appointment. [phone] Test Results: Test results from this visit will be discussed in further detail at your follow- up appointment, if applicable. Discharge Plan Admission Attending Provider: Feliciano Castellon Primary Care Provider: David Michael Instructions Print Language: Peruvian Discharge Orders/Prescriptions Prescriptions: No Action citalopram 40 mg tablet 40 mg PO QDAY Referrals / Follow Up: David Michael DO [Primary Care Provider] - Disposition Disposition (needs filled in before D/C Order can be placed): Home, Self Care 01/08/25 1510Feliciano Castellon MD CC: Dr. David Michael, ~ Signed [facility]06-11-2025 Consult note [facility] Medical Records Department [address] [place] [address] Anesthesia Postop Eval I 01/08/25 1506 MR#: [id number] Acct: [id number] Name: HOWARD HALL Rep #:[id number] : 1980 44 From: Rebecca Mathews CRNA PCP: Dr. David Michael DO Status:REG SDC Y Race: C Location: [place] [address] Anesthesia: Postop Eval I Current Vital Signs [...] Postop Eval 1 completed: Yes 01/08/25 1508 AUTOMOTIVE PARTS COUNTER ASSISTANT> Date _ Rebecca Mathews CRNA Cosigner Signature: Date CC: ~ Signed [facility]06-11-2025 [facility] [address] [place] [address] Operative Report 01/08/25 1506 MR#: [id number] Acct: [id number] Name: HOWARD HALL Rep #:[id number] : 1980 44 From: Feliciano salazar MD PCP: Dr. David Michael, DO Status:[facility] Location: [place] [address] Operative Report (Standard) Operative Information Date of Procedure: 01/08/25 Pre-Operative Diagnosis: Need for vascular access port for chemotherapy Post-Operative Diagnosis: Same Surgery/Procedure Performed: Ultrasound and fluoroscopy guided right chest port placement with utilization of right IJ vocational counselor: No Type of Anesthesia: Local MAC RN [...] apply: Implanted device Implanted device details: 8 Lao PowerPort Estimated Blood Loss: 5 Specimen collected: [...] Feliciano Castellon MD; Dr. David Michael, ~ Signed [facility]06-11-2025 History and physical note [facility] Medical Records Department [address] [place] [address] H&P Exam - Surgical 01/08/25 1420 MR#: [id number] Acct: [id number] Name: HOWARD HALL Rep #:[id number] : 1980 44 From: Feliciano salazar MD PCP: Dr. David Michael DO Status:[facility] Location: [place] [address] HPI - General HPI Narrative HOWARD HALL, is a 44 F who presents for port placement. The patient was found to have breast cancer with metastasis to the lymph nodes. She is here forport placement for neoadjuvant chemotherapy [facility] Medical History Post-menopausal Wears glasses Cancer Depression [...] willing to proceed. Feliciano Castellon MD Pager: [facility] [address], [address] [place] [address] Office: 01/08/25 1429 Cosigner Signature (if applicable): CC: Dr. Feliciano Castellon MD; Dr. David Michael, DO~ Signed [facility]06-11-2025 Consult note [facility] Medical Records Department [address] [place] [address] Pre-Anesthesia Evaluation 01/08/25 1352 MR#: [id number] Acct: [id number] Name: HOWARD HALL Rep #:[id number] : 1980 44 From: Clyde Starks MD PCP: Dr. David Michael, DO Status:REG SDC Y Race: C Location: [place] [address] ASA Classification* ASA Classification ASA Classification: 2 [...] 17:03 12/25/24 RBC 4.24 M/mm3 (4.2-5.4) 12/25/24 17:12/25/24 Hgb 12.3 g/dL (12.0-15.0) 12/25/24 17:03 12/25/24 [...] possible left Anesthesia History Anesthesia History - high school admissions representative: Anesthesia History - high school admissions representative Hx Hospitalization No 01/02/25 13:24 Any Problems [...] take am of surgery PONV PONV - high school admissions representative: PONV - high school admissions representative Female Yes 01/02/25 13:24 HX of Motion [...] 12/25/24 16:04 Respiratory Assessment Respiratory Assessment - high school admissions representative: Respiratory Tract Infection Hx - high school admissions representative Hx Respiratory Tract Infection No 01/02/25 13:24 STOP Sleep Apnea STOP Sleep Apnea - high school admissions representative: STOP Sleep Apnea - high school admissions representative Hx Hypertension No 01/02/25 13:24 Hx Sleep [...] 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 Use History - high school admissions representative: Tobacco Use History - high school admissions representative Tobacco Use Smoking Status Light Smoker (<10/day) 01/02/25 13:24 Hx Tobacco Use Yes 01/02/25 13:24 Years Smoking Packs Smoked per Day 0.5 01/02/25 13:24 Smoking Cessation Date was within the last 15 years Hx Smoking Cessation Date Hx Smoking Cessation Counseling Hematologic Medial History Hematologic Hx - high school admissions representative: 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 01/08/25 1353 > Date _ Clyde Starks MD [facility] Signature: Date CC: ~ Signed [facility]05-28-2025 Progress [facility] [address] [place] [address] OFFICE VISIT Date of Service: 12/25/24 5075 MR#: [id number] Acct: [id number] Name: HOWARD HALL Rep #: [id number] : 1980 From: Arnaud parr MD Age/Sex: 44/F Location: [facility] Status: Signed HPI Subjective Date of [...] in 100% of tumor cells PROGESTERONE RECEPTOR (AR): Positive, strong immunoreactivity in 100% of tumor cells HER2/RYAN IHC: Positive, (Score 3+) KI67 IHC: 40% B. Left axilla, lymph node, biopsy: * Metastatic mammary carcinoma (See note) Note: The pancytokeratin stain is positive supporting the diagnosis. 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 Arnaud Borja MD Cad Application Support Specialist, [facility] Divisions of Medical Oncology & Hematology Department of Internal Medicine [place] [phone] This note was generated using a voice [...] the past year?: No 12/25/24 1655 xavi MOSELEY> Date _ Arnaud Borja MD Cosigner Signature: Date (if applicable) CC: Dr. Feliciano Castellon MD; Dr. David Michael, DO ~ [facility]05-28-2025 Progress note Author Arnaud Borja [facility] Note Date/Time December 25, 2024 4:55p m [facility] [address] [address] OFFICE VISIT Date of Service: 12/25/24 1555 MR#: [id number] Acct: [id number] Name: VICKEY,HOWARD Montes De Oca Rep #: [id number] : 1980 From: Arnaud parr MD Age/Sex: 44/F Location: [facility] Status: Signed HPI Subjective Date of Service [...] in 100% of tumor cells PROGESTERONE RECEPTOR (AR): Positive, strong immunoreactivity in 100% of tumor cells HER2/RYAN IHC: Positive, (Score 3+) KI67 IHC: 40% B. Left axilla, lymph node, biopsy: * Metastatic mammary carcinoma (See note) Note: The pancytokeratin stain is positive supporting the diagnosis. 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 Arnaud Borja MD Cad Application Support Specialist, [facility] Divisions of Medical Oncology & Hematology Department of Internal Medicine [place] [address] This note was generated using a voice [...] fallen in the past year?: No 12/25/24 6846 <Electronically signed by Arnaud hurley MD> Date _ Arnaud Borja MD Cosigner Signature: Date (if applicable) CC: Dr. Feliciano Castellon MD; Dr. David Michael DO ~ [facility] Work Phone: 1(377) 471-468405-12-2025 Evaluation note* Diagnosis Onset Date Resolution Status Admit Date Left breast mass acute November 1:07pm [facility] Work Phone: 1(640) 557-428105-12-2025 Evaluation note* Diagnosis Onset Date Resolution Status Admit Date Left breast mass acute November 1:07pm Left breast mass acute November 12:05pm [facility] Work Phone: 1(849) 500-149105-12-2025 Evaluation note* Diagnosis Onset Date Resolution Status Admit Date Left breast mass deleted November 1:07pm Left breast mass deleted November 12:05pm Breast cancer acute December 25, 2 025 3:54pm Regional lymph node metastas is present acute December 25, 2024 3 :54pm [facility] Work Phone: 1(288) 896-150505-12-2025 Evaluation note* Diagnosis Onset Date Resolution Status Admit Date Left breast mass deleted November 1:07pm Left breast mass deleted November 12:05pm Breast cancer acute December 25, 2 025 3:54pm Regional lymph node metastas is present acute December 25, 2024 3 :54pm Breast cancer acute January 08, 2025 1:42pm Encounter for insertion of venous access port acute January 08 1:42pm [facility] Work Phone: 1(345) 866-606905-08-2025 Radiology Diagnostic study note [facility] Imaging Services [address], [place] [id number] Breast Limited Unilateral MR#: [id number] Acct: [id number] Name: HOWARD HALL Rep #: [id number] : 1980 F 43 From: Kamilah Sarah MD PCP: Dr. David Michael DO Status: REG CLI Study:Breast Limited Unilateral Date of Exam: 12/04/24 Exam# [id number] Ordering Dr: David Michael DO EXAM: BREAST [...] be mailed to the patient. Reading Location: [facility] CC: Dr. David Michael, DO ~ Svp Monetization: Signed [facility]09-21-2022 NoteHNO ID: [id number] Author: RT Heidi(R) Service: ? Author Type: Coin Rolling Machine Operator Type: Progress Notes Filed: 04/20/2022 4:42 PM [...] BY: RT Heidi(R) April 20, 2022 4:41 [facility]08-02-2022 NoteHNO ID: [id number] Author: Faith Clements APRN.SOUVENIR AND NOVELTY MAKER Service: ? Author Type: Nurse Practitioner Type: Progress Notes Filed: 03/01/2022 4:30 PM Note Text: BREAST LUMP HISTORY: This is a 41 year old female Presents with breast mass left side, about 10 days Tenderness slight but feeling prick sensation Change in sizeNo Any history breast mass No Caffeine use Yes 1-2 cups/day Last [id number] normal Any previous breast surgery No Any [...] 1 tablet by mouth once daily. - Fmorbvls-Xm-Hku-Fe-FA ( VITAMIN) tab Take 1 tablet by [...] testing/treatment [facility]: [facility] of Present illness Narrative* Faith GEROGE Clements.DOM - 03/01/2022 3:45 PM EDT BREAST LUMP HISTORY: This is a 41 year old female Presents with breast mass left side, about 10 days Tenderness slight but feeling prick sensation Change in sizeNo Any history breast mass No Caffeine use Yes 1-2 cups/day Last [id number] normal Any previous breast surgery No Any [...] Take 1 tablet by mouth once daily. Otqxtvdp-Fn-Nqw-Fe-FA ( VITAMIN) tab Take 1 tablet by [...] Level: 3 - Low [facility] of Past illness Narrative* Problem Noted [...] considering Materna 21 test.TKRN Bleeding in early 02/09/201708/2021 Overview: 02/09/2017 Patient states she has notted [...] of this encounter (statuses as of 03/01/2022) [facility] note Author Rebecca Mathews [facility] Note Date/Time January 08, 2025 3:08 pm [facility] Medical Records Department [address] [place] [address] Anesthesia Postop Eval I 01/08/25 1506 MR#: [id number] Acct: [id number] Name: HOWARD HALL Rep #:[id number] : 1980 44 From: Rebecca Mathews CRNA PCP: Dr. David Michael, DO Status:REG [facility] Y Race: C Location: [place] [address] Anesthesia: Postop Eval I Current Vital Signs [...] CRNA Cosigner Signature: Date CC: ~ Signed [facility] Work Phone: Consult note Author Clyde Starks [facility] Note Date/Time January 08, 2025 3:30 pm [facility] Medical Records Department [address] [place] [address] Anesthesia Postop Eval II 01/08/25 1530 MR#: [id number] Acct: [id number] Name: HOWARD HALL Rep #:[id number] : 1980 44 From: Clyde Starks MD PCP: Dr. David Michael, DO Status:REG SDC Y Race: C Location: [facility]-1 Anesthesia Postop Eval I Sum Postop Eval Completion status Anesthesia document: Postop Eval 1 completed: Yes Anesthesia Postop Eval I Summary Anesthesia Postop Eval I Summary: Anesthesia Postop Eval I: Assessment Summary Airway patent Yes 01/08/25 15:08 AUTOMOTIVE PARTS COUNTER ASSISTANT.JDEF Spontaneous unlabored Yes 01/08/25 15:08 AUTOMOTIVE PARTS COUNTER ASSISTANT.JDEF respirations Mental status Awake 01/08/25 15:08 AUTOMOTIVE PARTS COUNTER ASSISTANT.JDEF nausea No 01/08/25 15:08 AUTOMOTIVE PARTS COUNTER ASSISTANT.JDEF Vomiting No 01/08/25 15:08 AUTOMOTIVE PARTS COUNTER ASSISTANT.JDEF Anesthesia Postop Eval I: Fluid Summary Crystalloid volume administer 300 01/08/25 15:08 AUTOMOTIVE PARTS COUNTER ASSISTANT.JDEF (ml) Colloids volume administered ( ml) Blood Product volume administered (ml) Total IV fluid infused 300 01/08/25 15:08 AUTOMOTIVE PARTS COUNTER ASSISTANT.JDEF Anesthesia Postop Eval I: Summary Notes Anesthesia Complication No 01/08/25 15:08 AUTOMOTIVE PARTS COUNTER ASSISTANT.JDEF Anesthesia Complication Comment: Post-operative progress note Anesthesia: Postop Eval II Evaluation Mental status: Awake Pain Level: 0 nausea: No Vomiting: No 01/08/251529 <Electronically signed by Clyde Starks MD > Date _ Clyde Starks MD Cosigner Signature: Date CC: ~ Signed [facility] Work Phone: Consult note Author Rebecca Mathews [facility] Note Date/Time January 08, 2025 3:54 pm [facility] Medical Records Department [address] [place] [address] Anesthesia Postop Eval I 01/08/25 1553 MR#: [id number] Acct: [id number] Name: HOWARD HALL Rep #:[id number] : 1980 44 From: Rebecca Mathews CRNA PCP: Dr. David Michael, DO Status:REG SDC Y Race: C Location: [place] [address] Anesthesia: Postop Eval I Current Vital Signs [...] Anesthesia document: Postop Eval 1 completed: Yes 01/08/251553 <Electronically signed by Rebecca rice CRNA> Date _ Rebecca Mathews CRNA Cosigner Signature: Date CC: ~ Signed [facility] Work Phone: Discharge summary Author Feliciano Castellon [facility] Note Date/Time January 08, 2025 3:10 pm [facility] Medical Records Department [address] [place] [address] Instructions for Home/Discharge Instructions 01/08/25 1507 MR#: [id number] Acct: [id number] Name: HOWARD HALL Rep #:[id number] : 1980 44 From: Feliciano salazar MD PCP: Dr. David Michael DO Status:REG MNC Discharge Instructions Procedure Gallbladder Diet Discharge Diet: [...] to schedule 2 week follow up appointment. [phone] Test Results: Test results from this visit will be discussed in further detail at your follow- up appointment, if applicable. Discharge Plan Admission Attending Provider: Feliciano Castellon Primary Care Provider: David Michael Instructions Print Language: Peruvian Discharge Orders/Prescriptions Prescriptions: No Action citalopram 40 mg tablet 40 mg PO QDAY Referrals / Follow Up: David Michael DO [Primary Care Provider] - Disposition Disposition (needs filled in before D/C Order can be placed): Home, Self Care 01/08/25 1510<Electronically signed by Feliciano Castellon MD>Feliciano Castellon MD CC: Dr. David Michael DO ~ Signed [facility] Work Phone: Evaluation note* Diagnosis Fibrocystic breast changes, left- Primary Breast pain Mastodynia documented [facility] encounter [facility] Author Feliciano Castellon [facility] Note Date/Time January 08, 2025 2:22 pm [facility] Medical Records Department [address] [place] [address] H&P Exam - Surgical 01/08/25 1420 MR#: [id number] Acct: [id number] Name: HOWARD HALL Rep #:[id number] : 1980 44 From: Feliciano salazar MD PCP: Dr. David Michael, DO Status:REG [facility] Location: [place] [address]1 HPI - General HPI Narrative HOWARD HALL, [...] willing to proceed. Feliciano Castellon MD Pager: [facility] [address] [place] [address], [address] [place] [phone] Office: 01/08/25 1422 <Electronically signed by Feliciano Castellon MD> Cosigner Signature (if applicable): CC: Dr. Feliciano Castellon MD; Dr. David Michael, DO~ Signed [facility] Work Phone: Reason for referral (narrative)* Diagnostic Procedure Only (Routine) - Authorized Specialty Diagnoses / Procedures Referred By Contac t Referred To Contact [facility] Diagnoses Fibrocystic breast changes, left Breast pain Procedures YARELY DIAGNOSTIC BILAT DIAGNOSTIC MAMMOGRAPHY COMPUTER-AIDED DETCJ Faith Quan, GEORGE.SOUVENIR AND NOVELTY MAKER [address] [place] [address] [facility] [address] [place] [address] Referral ID Status Reason Start Date Expiration Date Visits Requested Visits Authorized [id number] Authorized Auto-Generat ed Referral 03/01/2022 03/31/2023 1 1 * Diagnostic Procedure Only (Routine) - Pending Review Specialty Diagnoses / Procedures Referred By Julisa t Referred To Contact [facility] Diagnoses Fibrocystic breast changes, left Breast pain Procedures US BREAST LTD LT US BREAST UNI REAL TIME WITH IMAGE LIMITED Faith Clements APRN.CNP [address] [place] [address] [facility] [address] [place] [address] Referral ID Status Reason Start Date Expiration Date Visits Requested Visits Authorized [id number] Pending Review Auto-Generat ed Referral 03/01/2022 03/31/2023 1 1 [facility]No reason for referral information availableWMercy Health St[facility] Work Phone: Summary Purpose Family History [...] Do you have a Healthcare Power of Area Field Worker? No January 02, 2025 1:24pm Chief Complaint [...] NEEDLE BIOPSY L BREAST MASS November 12:46pm Reason for Visit Admit Date Left [...] venous access port January 08, 2025 1:42pm Chief Complaint Admit Date LUMP LEFT BREAST December 04, 2024 1:56pm BIRADS 5 December 09, 2024 1:07p m BREAST BIOPSY December 10, 2024 12:05 pm CORE NEEDLE BIOPSY L BREAST MASS December 10t 2024 12:46pm BREAST CA December 25, 2024 3:54p m BREAST December 25, 2024 4:23p m Insertion, Vascular Port right possible left January 08, 2025 1:42pm Insertion, Vascular Port right possible left January 08, 2025 2:20pm BREAST CANCER January 13, 2025 6:41 am Additional Source Comments Source Comments (unrecognize d section and content) In the event this informatio n is protected by the Federal Confidentiality of Alcohol and Drug Abuse Patient Records regulations: The Federal rules restrict any use of the information to criminally investigate or prosecute any alcohol or drug abuse patient.[facility] Reason for Visit (unrecogniz ed section and content) Reason Comments left breast lump Care Teams (unrecognized sec tion and content) Shipping & Receiving Lead Relationship Specialty Start Date End Date David [...] Other Provider Active Start: January 08, 2025 Team Status: Inactive Member Role Status Dates Dr. David Michael DO Primary Care Provider Active Start: January 13, 2025 End: January 13, 2025 Dr. Arnaud Borja MD Attending Provider Active Start: January 13, 2025 End: January 13, 2025 Dr. Arnaud Borja MD Referring Provider Active Start: January 13, 2025 End: January 13, 2025 INFORMATION SOURCE (unrecogn ized section and content) DATE CREATED AUTHOR 05/01/2022 [facility] DATE CREATED AUTHOR AUTHOR'S ORGANIZ ATION 08/14/2023 [facility] DATE CREATED AUTHOR AUTHOR'S ORGANIZ ATION 01/17/2025 [facility] Goals (unrecognized section and content) Goals may [...] BE BASED ON THE PRIMARY CLINICAL RECORDS. [facility] [employer] [facility]. provides no warranty or guarantee of the accuracy or completeness of information in this document.
== END | disposition home or self-care (01) ==
LOC: NM 08:41
PROVIDERS: PCP Family Medicine; Referring Provider Internal Medicine Hematology & Oncology; Visit Provider Internal Medicine Hematology & Oncology
DX: C50.812 Malignant neoplasm of overlapping sites of left female breast (principal); C77.9 Secondary and unspecified malignant neoplasm of lymph node, unspecified; Z17.0 Estrogen receptor positive status [ER+]
CPT/HCPCS: 78306; A9503

== ENCOUNTER → 2025-02-05 | Outpatient (CLI) | payer MEDICAID, SELFPAY ==
--- NOTE | 2025-02-05 16:14 | ECHODONC_ITS ---
Reason For Study Reason For Study: ANTINEWPLASTIC CHEMO Procedure This was a 2D Doppler, Color Flow transthoracic echocardiogram. The study was technically difficult. Due to left breast mass compromising parasternal imaging windows. Exam performed in department. Left Ventricle Normal LV size. The left ventricular ejection fraction is 60 %. Stage 1 diastolic dysfunction. No regional wall motion abnormalities noted. Right Ventricle Normal RV size. Normal systolic function. Atria Normal left atrium. Normal right atrium. Mitral Valve Normal mitral valve. Tricuspid Valve Normal tricuspid valve. Aortic Valve Trisinus/trileaflet aortic valve. Pulmonic Valve Normal pulmonic valve. Great Vessels Normal aortic root. The pulmonary artery is normal size. Inferior vena cava collapse with respiration. Pericardium/Pleural No pericardial effusion. MMode/2D Measurements & Calculations LVIDd: 4.1 cm IVSd: 0.79 cm Ao root diam: 3.1 cm LVIDs: 3.1 cm LVPWd: 0.92 cm FS: 26.1 % LAV(MOD-sp4): 29.2 ml LVAd ap4: 32.1 cm2 SV(MOD-sp4): 56.2 ml LVLd ap4: 8.7 cm SI(MOD-sp4): 31.8 ml/m2 EDV(MOD-sp4): 98.1 ml EDV(sp4-el): 100.6 ml LVAs ap4: 18.7 cm2 LVLs ap4: 7.1 cm ESV(MOD-sp4): 41.9 ml ESV(sp4-el): 41.8 ml EF(MOD-sp4): 57.3 % EF(sp4-el): 58.4 % SV(sp4-el): 58.8 ml LA A4 area: 12.0 cm2 LA dimension(2D): 2.6 cm RA A4 area: 9.6 cm2 TAPSE: 2.3 cm Time Measurements MV dec time: 0.20 sec Doppler Measurements & Calculations MV E max fareed: 88.1 cm/sec Lat Peak E' Fareed: 9.3 cm/sec Med Peak E' Fareed: 12.3 cm/sec MV A max fareed: 121.1 cm/sec E/E' lat: 9.5 E/E' med: 7.2 MV E/A: 0.73 MV V2 max: 131.7 cm/sec MV P1/2t max fareed: 97.3 cm/sec Ao V2 max: 119.7 cm/sec MV max P.9 mmHg MV P1/2t: 55.2 msec Ao max P.7 mmHg MV V2 mean: 69.0 cm/sec Ao V2 mean: 84.8 cm/sec MV mean P.2 mmHg MV dec slope: 515.7 cm/sec2 Ao mean P.1 mmHg MV V2 VTI: 25.6 cm MVA(P1/2t): 4.0 cm2 Ao V2 VTI: 23.2 cm AV (velocity ratio): 0.81 LV V1 max: 96.1 cm/sec PA V2 max: 81.5 cm/sec LV V1 max P.7 mmHg LV V1 mean P.2 mmHg LV V1 mean: 72.0 cm/sec LV V1 VTI: 18.7 cm ECHO/ONC Echo Complete Interpretation Summary Normal LV size. The left ventricular ejection fraction is 60 %. Stage 1 diastolic dysfunction. The global longitudinal strain is normal. The global longitudinal strain = -16. 7 % (normal). Ordering Physician: Arnaud Borja Referring Physician: Austin Michael Performed By: Isamar Talamantes, ANA, RVT
== END | disposition home or self-care (01) ==
LOC: CVS 16:14
PROVIDERS: PCP Family Medicine; Referring Provider Internal Medicine Hematology & Oncology; Visit Provider Internal Medicine Hematology & Oncology
DX: C50.919 Malignant neoplasm of unspecified site of unspecified female breast (principal)
CPT/HCPCS: 93306; 93356

== ENCOUNTER 2025-06-28 00:06 | Inpatient (IN) | payer MEDICAID, SELFPAY ==
[2025-06-28] VITALS (12 sets, daily range): BP systolic 104–148; BP diastolic 77–98; PULSE 85–99; RESP 16–22; TEMP 37.1–39.5; O2SAT 97–100; BMI 25.4; BMI 24.3
--- NOTE | 2025-06-28 00:26 | EKG12_ITS ---
Test Reason : DYSRHYTHMIA Blood Pressure : */* mmHG Vent. Rate : 89 BPM Atrial Rate : 89 BPM P-R Int : 142 ms QRS Dur : 70 ms QT Int : 340 ms P-R-T Axes : 42 -27 29 degrees QTcB Int : 413 ms Normal sinus rhythm Cannot rule out Anterior infarct , age undetermined Abnormal ECG Confirmed by Kayden Cortez ([id number]), news editor CRISTAL MCKENZIE ([id number]) on 06/30/2025 8:54:11 AM Referred By: Confirmed By: Kayden Cortez
--- OUTSIDE RECORDS SUMMARY | 2025-06-28 00:45 | XMS RPT_ITS | CCD ---
Author Organization [facility] Care Team Providers Care [employer] Cook Name Role Phone David Ghotra DO Primary Care Provider FAITH CHAVEZ Attending Unavailable DAVID GHOTRA Primary Care Unavailable DAVID GHOTRA Primary Care Unavailable FAITH CHAVEZ Referring Unavailable DAVID GHOTRA Primary Care Unavailable Dr. David Ghotra DO Primary Care Provider Dr. David Ghotra DO Attending Provider Dr. David Ghotra DO Referring Provider Dr. Feliciano Castellon MD Attending Provider Dr. Feliciano Castellon MD Referring Provider Dr. Arnaud Borja MD Attending Provider Dr. Arnaud Borja MD Referring Provider Dr. Feliciano Castellon MD Other Provider Amalia LOPEZ-C, Kelsey Attending Provider Dr. Cirilo Centeno MD Attending Provider Dr. Arnaud Borja MD Referring Provider Dr. David Ghotra DO Primary Care Provider Dr. David Ghotra DO Attending Provider Dr. David Ghotra DO Primary Care Physician Dr. Feliciano Castellon MD Attending Physician Dr. Feliciano Castellon MD Referring Provider Ravinder MOSELEY, Dr. Wiggins Nurse Practitioner Huong MOSELEY, Dr. Lares Attending Physician Dr. David Ghotra DO Referring Provider Amalia LAYOUT MECHANIC-C, Kelsey Attending Physician Jacobo MOSELEY, Dr. Kerr Attending Physician DAVID GHOTRA Primary Care Unavailable MATTHEW STONE Attending Unava ilable Alec David Primary Care Unavailable Alec David Attending Unavailable Alec, David Primary Care Unavailable Alec, David Referring Unavailable AlecDavid Attending Unavailable Amalia LAYOUT MECHANIC, Kelsey Attending Unavailable AlecDavid Referring Unavailable Alec, David Primary Care Unavailable Alec, David Primary Care Unavailable Isckarus, Arnaud Referring Unavailable Isckarus, Arnaud Attending Unavailable Alec, David Primary Care Unavailable Isckarus, Arnaud Referring Unavailable Arnaud Borja Attending Unavailable Feliciano Castellon Attending Unavailable Alec, David Primary Care Unavailable CalabrFeliciano aquino Referring Unavailable HumbertoabrFeliciano aquino Referring Unavailable Alec, David Primary Care Unavailable HumbertoabrFeliciano aquino Attending Unavailable Alec, David Primary Care Unavailable AlecDavid spivey Attending Unavailable Amalia LAYOUT MECHANIC, Kelsey Attending Unavailable AlecDavid Referring Unavailable Alec, David Primary Care Unavailable AlecDavid Referring Unavailable Isckarus, Arnaud Attending Unavailable Alec, David Primary Care Unavailable Alec, David Primary Care Unavailable Isckarus, Mansour Referring Unavailable Isckarus, Arnaud Attending Unavailable Alec, David Primary Care Unavailable Isckarus, Mansour Referring Unavailable Isckarus, Mansour Attending Unavailable Alec, David Primary Care Unavailable AlecDavid Referring Unavailable CalabrFeliciano aquino Attending Unavailable AlecDavid Referring Unavailable Amalia LAYOUT MECHANIC, Kelsey Attending Unavailable Alec, David Primary Care Unavailable Alec, David Primary Care Unavailable Alec, David Referring Unavailable Amalia LAYOUT MECHANIC, Kelsey Attending Unavailable Alec, David Primary Care Unavailable AlecDavid Referring Unavailable CalabrFeliciano aquino Attending Unavailable AlecDavid spivey Referring Unavailable Isckarus, Arnaud Attending Unavailable Alec, David Primary Care Unavailable David Ghotra Primary Care Unavailable Cirilo Centeno Attending Unavailable Feliciano Castellon Referring Unavailable AlecDavid Primary Care Unavailable Feliciano Castellon Attending Unavailable Feliciano Castellon Consulting Unavailable Alec David Referring Unavailable David Ghotra Primary Care Unavailable Arnaud Borja Attending Unavailable Amalia LAYOUT MECHANIC, Kelsey Attending Unavailable David Ghotra Primary Care Unavailable David Gohtra Referring Unavailable Alec, David Primary Care Unavailable Arnaud Borja Attending Unavailable Feliciano Castellon Referring Unavailable Medications Current Medications Medication Drug Class(es) Dates Sig (Normalized) Sig (Original) citalopram 40 mg oral tablet (20 sources) Serotonin Reuptake Inhibitor Start: 12-09-2024 take 1 tablet by mouth once daily Citalopram 40 mg tablet Active 40 mg PO daily December 09, 2024 12:00am Complies with drug therapy Start: 02-15-2017 End: 12-09-2024 take 1 tablet by mouth once daily Citalopram (Celexa) 20 MG tablet Discontinued 20 mg PO DAILY August 15, 2017 1:00am December 09, 2024 2:02pm Comment on above: Take 1 tablet by surya once daily. dexamethasone 4 mg oral tablet (10 sources) Corticosteroid Start: 02-06-20 End: 02-21-20 take 2 tablets by mouth twice daily Dexamethasone 4 mg tablet Active 8 mg PO .COMPLEX 12 February 20, 2025 3:46pm 8 mg orally twice daily ONLY the day before, the day of, and the day after chemotherapy Complies with drug therapy lidocaine 25 mg/ml / prilocaine 25 mg/ml topical cream (6 sources) Antiarrhythmic, Amide Local Anesthetic Start: 02-06-20 Lidocaine-Prilocaine 2.5-2.5 % cream Active 1 NMA TOPICAL ONCE as needed for port access February 05, 2025 12:00am Malignant neoplasm of breast Regional lymph node metastasis present Malignant neoplasm of overlapping sites of left female breast Estrogen receptor positive status [ER+] Secondary and unspecified malignant neoplasm of lymph node, unspecified Complies with drug therapy Start: 02-05-2025 Lidocaine-Pril ocaine 2.5-2.5 % cream Active 1 NMA TOPICAL ONCE as needed for port access 30 February 05, 2025 12:00am Malignant neoplasm of breast Regional lymph node metastasis present Malignant neoplasm of overlapping sites of left female breast Estrogen receptor positive status [ER+] Secondary and unspecified malignant neoplasm of lymph node, unspecified loperamide hydrochloride 2 mg oral capsule (4 sources) Opioid Agonist Start: 02-20-2025 Loperamide (An ti-Diarrheal (Loperamide)) 2 mg capsule Active 2 mg PO Q4H as needed for loose stool 60 February 20, 2025 12:00am administer 4 mg with first loose stool and 2 mg after each loose stool until symptoms controlled Complies with drug therapy Magic Mouth Wash (Bmx) 180 mL suspension (4 sources) Start: 02-20-2025 Magic Mouth Wa sh (Bmx) 180 mL suspension Active 15 mL PO .Q6HR 180 February 20, 2025 12:00am Stomatitis Other forms of stomatitis diphenhydramine 12.5 mg/5 mL oral liquid 60 mL; aluminum-mag hydroxide-simethicone 400 mg-400 mg-40 mg/5 mL oral susp 60 mL; Lidocaine Viscous 2 % mucosal solution 60 mL; Per 180 mL Complies with drug therapy Start: 02-20-2025 Magic Mouth Wa sh (Bmx) 180 mL suspension Active 15 mL PO .Q6HR 180 February 20, 2025 12:00am Stomatitis Other forms of stomatitis diphenhydramine 12.5 mg/5 mL oral liquid 60 mL; aluminum-mag hydroxide-simethicone 400 mg-400 mg-40 mg/5 mL oral susp 60 mL; Lidocaine Viscous 2 % mucosal solution 60 mL; Per 180 mL ondansetron 8 mg disintegrating oral tablet (6 sources) Serotonin-3 Receptor Antagonist Start: 02-05-2025 take 1 tablet by mouth every eight hours as needed for nausea and vomiting Ondansetron 8 mg tablet,disintegrating Active 8 mg PO Q8H as needed for nausea and vomiting 30 February 05, 2025 12:00am Malignant neoplasm of breast Malignant neoplasm of overlapping sites of left female breast Estrogen receptor positive status [ER+] Complies with drug therapy prochlorperazine 10 mg oral tablet (6 sources) Phenothiazine Start: 02-05-2025 take 1 tablet by mouth every six hours as needed for nausea and vomiting Prochlorperazine Maleate 10 mg tablet Active 10 mg PO EVERY 6 HOURS as needed for nausea and vomiting 30 2 February 05, 2025 12:00am Chemotherapy-induced nausea and vomiting Nausea with vomiting, unspecified Adverse effect of antineoplastic and immunosuppressive drugs, initial encounter Complies with drug therapy Completed/Discontinued Medications Medication Drug Class(es) Dates Sig (Normalized) Sig (Original) aspirin 81 mg chewable tablet (16 sources) Platelet Aggregation Inhibitor, Nonsteroidal Anti-inflammatory Drug [...] on above: Take 1 tablet by surya once daily. ciprofloxacin 500 mg oral tablet (3 sources) Quinolone Antimicrobial Start: 02-21-20 End: 04-02-20 25 take 1 tablet by mouth twice daily Ciprofloxacin Hcl (Cipro) 500 mg tablet Discontinued 500 mg PO TWICE A DAY 10 February 20, 2025 12:00am April 02, 2025 9:50am Urinary tract infection Urinary tract infection, site not specified ibuprofen 600 mg oral tablet (15 sources) Nonsteroidal Anti-inflammatory Drug Start: 08-17-19 End: 12-10-19 25 take 1 tablet by mouth every six hours as needed for pain Ibuprofen 600 MG tablet Discontinued 600 mg PO EVERY 6 HOURS as needed for Pain 60 August 17, 2017 1:00am December 09, 2024 2:02pm IRON, FERROUS SULFATE, ORAL (1 source) End: 03-01-20 take 27 mg by mouth once daily IRON, FERROUS SULFATE, ORAL Take 27 mg by mouth once daily. 0 03/01/2022 Discontinued Comment on above: Take 27 mg by mouth once daily. Yojxdyct-Ju-Cay-Fe-FA ( VITAMIN) tab (1 source) End: 03-01-20 22 take 1 tablet by mouth once Rdmsffdq-Nd-Mjk-Fe-FA ( VITAMIN) tab Take 1 tablet by mouth. 0 03/01/2022 Discontinued Comment on above: Take 1 tablet by surya th. Problems Active Problems Problem Classification Problem Date Documented Da te Episodic/Chronic Anxiety disorders (12 sources) Anxiety; Translations: [Anxiety disorder, unspecified] 12-25-2024 Chronic Cancer of breast (20 sources) Malignant tumor of breast ; Translations: [Malignant neoplasm of unspecified site of unspecified female breast] Onset: 02-11-2025 12-25-2024 Chronic Deficiency and other anemia (5 sources) Anemia; Translations: [Anemia, unspecified] 04-02-2025 Episodic Deficiency and other anemia (3 sources) Anemia, unspecified; Translations: [Anemia, unspecified type] Onset: 05-07-2025 Episodic Maintenance chemotherapy; radiotherapy (12 sources) Patient encounter status; Translations: [Encounter for antineoplastic chemotherapy] Onset: 05-28-2025 02-13-2025 Chronic Nonmalignant breast conditions (2 sources) Fibrocystic change of left breast; Translations: [Diffuse cystic mastopathy of left breast] Onset: 04-20-2022 Chronic Other aftercare (20 sources) Patient encounter status; Translations: [Encounter for adjustment and management of vascular access device] 01-08-2025 Episodic Other aftercare (1 source) Other terminologist (current) drug therapy; Translations: [Other fdc (current) drug therapy] Onset: 03-12-2025 Episodic Other gastrointestinal disorders (1 source) Malabsorption - iron; Translations: [Intestinal malabsorption, unspecified] Onset: 07-10-2017 07-10-2017 Chronic Other gastrointestinal disorders (6 sources) Diarrhea due to drug; Translations: [Toxic gastroenteritis and colitis] 02-21-2025 Episodic Other screening for suspected conditions (not mental disorders or infectious disease) (6 sources) Ultrasonography of breast abnormal; Translations: [Other abnormal and inconclusive findings on diagnostic imaging of breast] 12-09-2024 Episodic Other upper respiratory infections (1 source) Acute upper respiratory infection, unspecified; Translations: [Upper respiratory tract infection, unspecified type] Onset: 05-15-2025 Episodic Residual codes; unclassified (2 sources) Estrogen receptor positive status [ER+]; Translations: [Estrogen receptor positive status [ER+]] Onset: 05-07-2025 Episodic Secondary malignancies (20 sources) Regional lymph node metastasis present ; Translations: [Secondary and unspecified malignant neoplasm of lymph node, unspecified] 12-25-2024 Chronic Secondary malignancies (2 sources) Secondary and unspecified malignant neoplasm of lymph node, unspecified; Translations: [Secondary and unspecified malignant neoplasm of lymph node, unspecified] Onset: 05-07-2025 Chronic Unclassified (7 sources) Malignant neoplasm of breast Unclassified (8 sources) C77.9 - Secondary and unspecified malignant neoplasm of lymph node, unspecified,C50.812 - Malignant neoplasm of overlapping sites of left female breast,Z17.0 - Estrogen receptor positive status [ER+] Urinary tract infections (3 sources) Urinary tract infectious disease; Translations: [Urinary tract infection, site not specified] 02-20-2025 Episodic Past or Other Problems Problem Classification Problem Date Documented Da te Episodic/Chronic Cardiac dysrhythmias (1 source) Tachycardia, unspecified; Translations: [Tachycardia, unspecified] Onset: 11-21-2024 Episodic Deficiency and other anemia (1 source) Iron deficiency anemia secondary to inadequate dietary iron intake; Translations: [Other iron deficiency anemias] Onset: 07-10-2017 07-10-2017 Episodic Diseases of mouth; excluding dental (1 source) Other forms of stomatitis; Translations: [Other forms of stomatitis] Onset: 02-20-2025 Episodic Genitourinary symptoms and ill-defined conditions (8 sources) Dysuria; Translations: [Dysuria] Onset: 02-20-2025 02-20-2025 Episodic Nonmalignant breast conditions (20 sources) Pain of breast; Translations: [Mastodynia] Onset: 04-20-2022 Episodic Other aftercare (2 sources) Encounter for adjustment and management of vascular access device; Translations: [Encounter for adjustment and management of vascular access device] Onset: 01-22-2025 Episodic Other aftercare (1 source) Encounter for therapeutic drug level monitoring; Translations: [Encounter for therapeutic drug level monitoring] Onset: 12-25-2024 Episodic Other nutritional; endocrine; and metabolic disorders (1 source) H/O: thyroid disorder; Translations: [Personal history of other endocrine, nutritional and metabolic disease] Onset: 02-09-2017 02-09-2017 Episodic Screening and history of mental health and substance abuse codes (1 source) H/O: anxiety state; Translations: [Personal history of other mental and behavioral disorders] Onset: 02-09-2017 02-09-2017 Episodic Results Test Name Value Interpretation Reference [facility] Normal [facility] Comment on above: Result Comment: [id number] BP RC TRANSFUSED 05/30/25 0902 Performed By: #### B , [facility] ####[facility] [address] [place], [address] CBC W/Diff, Automatedon 10- Absolute Lymph 1.83 X10 3/uL Normal 0.83-4.51 [facility] Comment on above: Performed By: #### L 501.2300 #### [facility] [address] [place], [address] Absolute Neut 2.3 X10 3/uL Normal 2.0-7.7 [facility] Comment on above: Performed By: #### L [id number] #### [facility] [address] [place], [address] Basophils/100 WBC (Bld) 0.4 % Normal 0-1 [facility] Comment on above: Performed By: #### L [id number] #### [facility] [address] [place], [address] Eosinophils/100 WBC (Bld) 0.0 % Normal 0-5 [facility] Comment on above: Performed By: #### L [id number] #### [facility] [address] [place], [address] Erythrocyte distribution width (RBC) [Ratio] 17.6 % High 11.6-14.6 [facility] Comment on above: Performed By: #### L 501.2300 #### [facility] [address] [place], [address] Hematocrit (Bld) [Volume fraction] 22.5 % Low 37-47 [facility] Comment on above: Performed By: #### L 501.2300 #### [facility] [address] [place], [address] Hemoglobin (Bld) [Mass/Vol] 7.4 g/dL Low 12.0-15.0 [facility] Comment on above: Performed By: #### L 501.2300 #### [facility] [address] [place], [address] IG% 0.400 Normal 0.0-0.9 [facility] Comment on above: Result Comment: IG% - Immature Granulocytes (promyelocytes, myelocytes and metamyelocytes) > 1% indicates that a LEFT SHIFT is Present. Performed By: #### L 501.2300 #### [facility] [address] [place], [address] Lymphocytes/100 WBC (Bld) 39.4 % Normal 19-41 [facility] Comment on above: Performed By: #### L [id number] #### [facility] [address] [place], [address] MCH (RBC) [Entitic mass] 31.2 pg Normal 27.0-32.0 [facility] Comment on above: Performed By: #### L 501.2300 #### [facility] [address] [place], [address] MCHC (RBC) [Mass/Vol] 32.9 g/dL Normal 32-36 [facility] Comment on above: Performed By: #### L 501.2300 #### [facility] [address] [place], [address] MCV (RBC) [Entitic vol] 94.9 fL Normal 81-99 [facility] Comment on above: Performed By: #### L 501.2300 #### [facility] [address] [place], [address] Monocytes/100 WBC (Bld) 11.2 % High 0-10 [facility] Comment on above: Performed By: #### L 501.2300 #### [facility] [address] [place], [address] Neutrophils/100 WBC (Bld) 48.6 % Normal 47-70 [facility] Comment on above: Performed By: #### L 501.2300 #### [facility] [address] [place], [address] Nucleated RBC (Bld) [#/Vol] 0 10*3/uL Normal 0-5 [facility] Comment on above: Performed By: #### L 501.2300 #### [facility] [address] [place], [address] Platelet mean volume (Bld) [Entitic vol] 9.9 fL Normal 6.2-12.0 [facility] Comment on above: Performed By: #### L 501.2300 #### [facility] [address] [place], [address] Platelets (Bld) [#/Vol] 270 10*3/uL Normal 150-450 [facility] Comment on above: Performed By: #### L 501.2300 #### [facility] [address] [place], [address] RBC (Bld) [#/Vol] 2.37 10*6/uL Low 4.2-5.4 [facility] Comment on above: Performed By: #### L 501.2300 #### [facility] [address] [place], [address] RDW SD 59.4 fl High 35.1-43.9 [facility] Comment on above: Performed By: #### L 501.2300 #### [facility] [address] [place], [address] WBC (Bld) [#/Vol] 4.7 10*3/uL Normal 4.4-11.0 [facility] Comment on above: Performed By: #### L 501.2300 #### [facility] [address] [place], [address] Comprehensive Metabolic Prof ilon 05-28-2025 Albumin [Mass/Vol] 3.8 g/dL Normal 3.5-5.0 [facility] Comment on above: Performed By: #### L 501.2300 #### [facility] [address] [place], [address] Albumin/Globulin [Mass ratio] 1.3 {ratio} Normal 0.9-2.4 [facility] Comment on above: Performed By: #### L 501.2300 #### [facility] [address] [place], [address] ALK PHOS 102 U/L Normal 35-104 [facility] Comment on above: Performed By: #### L 501.2300 #### [facility] [address] [place], [address] ALT [Catalytic activity/Vol] 18 U/L Normal <=34 [facility] Comment on above: Performed By: #### L 501.2300 #### [facility] [address] [place], [address] AST [Catalytic activity/Vol] 22 U/L Normal <=31 [facility] Comment on above: Performed By: #### L 501.2300 #### [facility] [address] [place], [address] BUN/CRE 18.4 RATIO Normal 10-20 [facility] Comment on above: Performed By: #### L 501.2300 #### [facility] [address] [place], [address] Calcium [Mass/Vol] 9.3 mg/dL Normal 7.6-11.0 [facility] Comment on above: Performed By: #### L 501.2300 #### [facility] [address] [place], [address] Chloride [Moles/Vol] 108 mmol/L Normal 98-108 [facility] Comment on above: Performed By: #### L 501.2300 #### [facility] [address] [place], [address] CO2 [Moles/Vol] 23.0 mmol/L Normal 21.0-32.0 [facility] Comment on above: Performed By: #### L 501.2300 #### [facility] [address] [place], [address] Creatinine [Mass/Vol] 0.75 mg/dL Normal 0.70-1.20 [facility] Comment on above: Performed By: #### L 501.2300 #### [facility] [address] [place], [address] ECRCL 86.13 ml/min Normal 50-250 [facility] Comment on above: Performed By: #### L 501.2300 #### [facility] [address] [place], [address] GAP 12 Normal 5-15 [facility] Comment on above: Performed By: #### L 501.2300 #### [facility] [address] [place], [address] GFR/1.73 sq M.predicted among non-blacks MDRD (S/P/Bld) [Vol rate/Area] 100 mL/min/{1.73_m2} Normal >60 [facility] Comment on above: Result Comment: mL/m in/1.73m2 CKD-EPI Creatinine Equation (2020) Performed By: #### L 501.2300 #### [facility] [address] [place], [address] Globulin (S) [Mass/Vol] 3.0 g/dL Normal 2.2-4.2 [facility] Comment on above: Performed By: #### L 501.2300 #### [facility] [address] [place], [address] Glucose [Mass/Vol] 129 mg/dL High 70-99 [facility] Comment on above: Performed By: #### L 501.2300 #### [facility] [address] [place], [address] Potassium [Moles/Vol] 3.5 mmol/L Normal 3.3-5.1 [facility] Comment on above: Performed By: #### L 501.2300 #### [facility] [address] [place], [address] Sodium [Moles/Vol] 143 mmol/L Normal 133-145 [facility] Comment on above: Performed By: #### L 501.2300 #### [facility] [address] [place], [address] T BILI < 0.15 Normal 0.00-1.30 [facility] Comment on above: Performed By: #### L 501.2300 #### [facility] [address] [place], [address] T PROT 6.8 g/dL Normal 5.9-8.4 [facility] Comment on above: Performed By: #### L 501.2300 #### [facility] [address] [place], [address] Urea nitrogen [Mass/Vol] 14 mg/dL Normal 4-19 [facility] Comment on above: Performed By: #### L 501.2300 #### [facility] [address] [place], [address] Ferritinon 05-28-2025 Ferritin [Mass/Vol] 239 ng/mL Normal 22-378 [facility] Comment on above: Performed By: #### L 503.6030, L503.6550 ####[facility] [address] [place], [address] Iron+Iron Binding Capacityon 05-28-2025 Iron [Mass/Vol] 48 ug/dL Low 50-170 [facility] Comment on above: Performed By: #### L 503.6030, L503.6550 ####[facility] [address] [place], [address] IRON SATURATION 17.5 Normal 13-59 [facility] Comment on above: Performed By: #### L 503.6030, L503.6550 ####[facility] [address] [place], [address] TIBC 274 ug/dL Normal 250-450 [facility] Comment on above: Performed By: #### L 503.6030, L503.6550 ####[facility] [address] [place], [address] UIBC 226 ug/dL Low 228-428 [facility] Comment on above: Performed By: #### L 503.6030, L503.6550 ####[facility] [address] [place], [address] Magnesiumon 05-28-2025 Magnesium [Mass/Vol] 1.8 mg/dL Normal 1.5-2.2 [facility] Comment on above: Performed By: #### L 501.2300 #### [facility] [address] [place], [address] Oncology Visit Reporton 05-01 Oncology Visit Report [facility] [address] [place] [address] OFFICE VISIT Date of Service: 05/28/25819 MR#: [id number] Acct: [id number] Name: HOWARD HALL Rep #: [id number] : 1980 From: Kelsey Amalia LOPEZ LAYOUT MECHANIC PatyC Age/Sex: 44/F Location: [facility] Status: Signed HPI Subjective Date of Service 05/28/25 Chief Complaint Breast cancer on treatment History of Present Illness 44-year-old female menopausal [...] MALIGNANCY. December 10, 2024: A. Left breast, "mass", 9-11 o'clock, 5 CMFN, biopsy: * Invasive [...] in 100% of tumor cells PROGESTERONE RECEPTOR (HI): Positive, strong immunoreactivity in 100% of tumor cells HER2/DIEGO IHC: Positive, (Score 3+) KI67 IHC: 40% B. Left axilla, lymph node, biopsy: * Metastatic mammary carcinoma (See note) Note: The pancytokeratin stain is positive supporting the diagnosis. January 13, 2025 CT chest abdomen and pelvis: IMPRESSION: 1. Known mass in the left breast consistent with carcinoma. 2. There is no evidence of metastatic disease. January 17, 2025 bone scan: IMPRESSION: No evidence of metastatic breast cancer. Echocardiogram: Normal LV size. The left ventricular ejection fraction is 60%. Stage I diastolic dysfunction. The global longitudinal strain is normal. The global longitudinal strain = -16.7% (normal). Treatment summary and response: [facility] February 13, 2025 (C4 delayed by 2 weeks d/t patient no shows) Interval History The patient is presenting to clinic for an evaluat (more content not included)... Normal [facility] Type AND Screenon 05-28-2025 Ab SCREEN GEL Negative Normal [facility] Comment on above: Order Comment: N1 [id number] Performed By: #### B ARIES, [facility] ####[facility] [id number] [place], [place], [id number] ABO and Rh group Nom (Bld) Blood group B Rh(D) positive [facility] Comment on above: Order Comment: [id number] Performed By: #### B ARIES, [facility] ####[facility] [id number] [place], [place], [address] ALLIED HEALTHon 05-15-2025 ALLIED HEALTH HNO ID: [id number] Author: JEIMY SPENCE RT(R) Service: Radiology Author Type: Distributor Cleaner Type: Allied Health Filed: 05/15/2025 10:57 Note Text: Radiology Service Progress Note PATIENT NAME: Howard Hall DATE OF SERVICE: May 15, 2025 TIME: 10:56 AM PATIENT IDENTITY VERIFICATION COMPLETED USING TWO (2) IDENTIFIERS: Name and Date of confirmed by patient verbally. FALL SCREENING: Has the patient had 2 falls in the last year or 1 fall with injury or currently using an Ambulatory Assistive Device (Walker, Cane, Wheelchair, Crutches, etc.)? Emergency Room Patient: Screened in ED PATIENT GENDER DATA: Assigned female at . status: : No status: NO. PATIENT RELEVANT IMPLANT DATA REVIEWED: Not Applicable PATIENT PRESENTS WITH AN IMPLANTABLE OR ATTACHED TEMPERATURE REGULATOR PYROMETER: No RADIOLOGY DEPARTMENT: General X-ray: Exam(s) Completed: Chest X-Ray PERIPHERAL IV DATA: Not applicable SIGNED BY: RT Debo(R) May 15, 2025 10:56 AM [facility] Bacteria Bld Culton 05-15-20 Bacteria identified Cx Nom (Bld) CULTURE, BLOOD: No growth 5 days Normal [facility] Comment on above: Performed By: #### 6 00-7 #### [facility] CLIA [id number] [address] STATES OF [facility] CBC W Auto Differential pane l (Bld)on 05-15-2025 Anisocytosis Ql (Bld) Present Normal [facility] Comment on above: Order Comment: Speci men Type: BLOOD SPECIMENOrdering Facility: [facility] Address: [address] [place] [address] Performed By: #### 5 7021-8 ####[facility] LABCLIA [id number] [place] [id number] [facility] Basophils (Bld) [#/Vol] 0.00 10*3/uL Normal <0.11 [facility] Comment on above: Order Comment: Speci men Type: BLOOD SPECIMENOrdering Facility: [facility] Address: [address] [place] [address] Performed By: #### 5 7021-8 ####[facility] [id number] [place] [id number] [facility] Basophils/100 WBC (Bld) 0.0 % Normal [facility] Comment on above: Order Comment: Speci men Type: BLOOD SPECIMENOrdering Facility: [facility] Address: [address] [place] [address] Performed By: #### 5 7021-8 ####[facility] [id number] [place] [id number] [facility] Differential cell count method Nom (Bld) Manual Normal [facility] Comment on above: Order Comment: Speci men Type: BLOOD SPECIMENOrdering Facility: [facility] Address: [address] [place] [address] Performed By: #### 5 7021-8 ####[facility] [place] LABCLIA [id number] [place] [id number] [place] Eosinophils (Bld) [#/Vol] 0.00 10*3/uL Normal <0.46 [facility] Comment on above: Order Comment: Speci men Type: BLOOD SPECIMENOrdering Facility: [facility] Address: [address] [place] [address] Performed By: #### 5 7021-8 ####[facility] LABCLIA [id number] [place] [address] [place] Eosinophils/100 WBC (Bld) 0.0 % Normal [facility] Comment on above: Order Comment: Speci men Type: BLOOD SPECIMENOrdering Facility: [facility] Address: [address] [place] [address] Performed By: #### 5 7021-8 ####[facility] LABCLIA [id number] [facility] [address] [facility] [place] Erythrocyte distribution width (RBC) [Ratio] 16.2 % High 11.5-15.0 [facility] Comment on above: Order Comment: Speci men Type: BLOOD SPECIMENOrdering Facility: [facility] Address: [address] [place] [address] Performed By: #### 5 7021-8 ####[facility] [id number] [place] [address] [facility] Hematocrit (Bld) [Volume fraction] 26.3 % Low 36.0-46.0 [facility] Comment on above: Order Comment: Speci men Type: BLOOD SPECIMENOrdering Facility: [facility] Address: [address] [place] [address] Performed By: #### 5 7021-8 ####[facility] LABCLIA [id number] [place] [address] [place] Hemoglobin (Bld) [Mass/Vol] 8.5 g/dL Low 11.5-15.5 [facility] Comment on above: Order Comment: Speci men Type: BLOOD SPECIMENOrdering Facility: [facility] Address: [address] [place] [address] Performed By: #### 5 7021-8 ####[facility] [place] LABCLIA [id number] [place] [address] [facility] [place] Lymphocytes (Bld) [#/Vol] 1.58 10*3/uL Normal 1.00-4.00 [facility] Comment on above: Order Comment: Speci men Type: BLOOD SPECIMENOrdering Facility: [facility] Address: [address] [place] [address] Performed By: #### 5 7021-8 ####[facility] [id number] [place] [address] [facility] Lymphocytes/100 WBC (Bld) 27.0 % Normal [facility] Comment on above: Order Comment: Speci men Type: BLOOD SPECIMENOrdering Facility: [facility] Address: [address] [place] [address] Performed By: #### 5 7021-8 ####[facility] [id number] [place] [address] [place] MCH (RBC) [Entitic mass] 30.6 pg Normal 26.0-34.0 [facility] Comment on above: Order Comment: Speci men Type: BLOOD SPECIMENOrdering Facility: [facility] Address: [address] [place] [address] Performed By: #### 5 7021-8 ####[facility] [id number] [place] [id number] [place] MCHC (RBC) [Mass/Vol] 32.3 g/dL Normal 30.5-36.0 [facility] Comment on above: Order Comment: Speci men Type: BLOOD SPECIMENOrdering Facility: [facility] Address: [address] [place] [address] Performed By: #### 5 7021-8 ####[facility] [id number] [place] [address] [place] MCV (RBC) [Entitic vol] 94.6 fL Normal 80.0-100.0 [facility] Comment on above: Order Comment: Speci men Type: BLOOD SPECIMENOrdering Facility: [facility] Address: [address] [place] [address] Performed By: #### 5 7021-8 ####[facility] LABCLIA [id number] [facility] [place] [address] [place] Monocytes (Bld) [#/Vol] 1.29 10*3/uL High <0.87 [facility] Comment on above: Order Comment: Speci men Type: BLOOD SPECIMENOrdering Facility: [facility] Address: [address] [place] [address] Performed By: #### 5 7021-8 ####[facility] [place] LABCLIA [id number] [facility] [place] [address] [place] Monocytes/100 WBC (Bld) 22.0 % Normal [facility] Comment on above: Order Comment: Speci men Type: BLOOD SPECIMENOrdering Facility: [facility] Address: [address] [place] [address] Performed By: #### 5 7021-8 ####[facility] [place] [facility] [id number] [facility] [place] [address] [place] Neutrophils (Bld) [#/Vol] 2.99 10*3/uL Normal 1.45-7.50 [facility] Comment on above: Order Comment: Speci men Type: BLOOD SPECIMENOrdering Facility: [facility] Address: [address] [place] [address] Performed By: #### 5 7021-8 ####[facility] [place] LABCLIA [id number] [facility] [address] [place] Neutrophils/100 WBC (Bld) 51.0 % Normal [facility] Comment on above: Order Comment: Speci men Type: BLOOD SPECIMENOrdering Facility: [facility] Address: [address] [place] [address] Performed By: #### 5 7021-8 ####[facility] LABCLIA [id number] [place] [address] [place] Nucleated RBC (Bld) [#/Vol] 10*3/uL Normal <0.01 [facility] Comment on above: Order Comment: Speci men Type: BLOOD SPECIMENOrdering Facility: [facility] Address: [address] [place] [address] Performed By: #### 5 7021-8 ####[facility] [place] LABCLIA [id number] [place] [address] [facility] Nucleated RBC/100 WBC (Bld) [Ratio] 0.0 /100 WBC Normal [facility] Comment on above: Order Comment: Speci men Type: BLOOD SPECIMENOrdering Facility: [facility] Address: [address] [place] [address] Performed By: #### 5 7021-8 ####[facility] [place] LABCLIA [id number] [place] [address] [facility] Platelet mean volume (Bld) [Entitic vol] 10.1 fL Normal 9.0-12.7 [facility] Comment on above: Order Comment: Speci men Type: BLOOD SPECIMENOrdering Facility: [facility] Address: [address] [place] [address] Performed By: #### 5 7021-8 ####[facility] [place] LABCLIA [id number] [facility] [place] [address] [facility] Platelets (Bld) [#/Vol] 130 10*3/uL Low 150-400 [facility] Comment on above: Order Comment: Speci men Type: BLOOD SPECIMENOrdering Facility: [facility] Address: [address] [place] [address] Result Comment: No c lot detected. Performed By: #### 5 7021-8 ####[facility] [place] LABCLIA [id number] [place] [address] [facility] Platelets Estimate (Bld) [#/Vol] Decreased Normal [facility] Comment on above: Order Comment: Speci men Type: BLOOD SPECIMENOrdering Facility: [facility] Address: [address] [place] [address] Performed By: #### 5 7021-8 ####[facility] [place] LABCLIA [id number] [place] [address] [facility] RBC (Bld) [#/Vol] 2.78 10*6/uL Low 3.90-5.20 [facility] Comment on above: Order Comment: Speci men Type: BLOOD SPECIMENOrdering Facility: [facility] Address: [address] [place] [address] Performed By: #### 5 7021-8 ####[facility] [place] LABCLIA [id number] [place] [address] [facility] RED CELL MORPH Reviewed: see result s of individual morphologies Normal [facility] Comment on above: Order Comment: Speci men Type: BLOOD SPECIMENOrdering Facility: [facility] Address: [address] [place] [address] Performed By: #### 5 7021-8 ####[facility] [place] LABCLIA [id number] [place], [place] [id number] [place] [address] Toxic granules LM Ql (Bld) Present Normal [facility] Comment on above: Order Comment: Speci men Type: BLOOD SPECIMENOrdering Facility: [facility] Address: [address] [place] [address] Performed By: #### 5 7021-8 ####[facility] [place] LABCLIA [id number] [address] WBC (Bld) [#/Vol] 5.87 10*3/uL Normal 3.70-11.00 [facility] Comment on above: Order Comment: Speci men Type: BLOOD SPECIMENOrdering Facility: [facility] Address: [address] [place] [address] Performed By: #### 5 7021-8 ####[facility] [place] LABCLIA [id number] [place] [id number] [facility] WBC Left Shift Ql (Bld) Present Normal [facility] Comment on above: Order Comment: Speci men Type: BLOOD SPECIMENOrdering Facility: [facility] Address: [address] [place] [address] Performed By: #### 5 7021-8 ####[facility] [place] LABCLIA [id number] [place] [address] [facility] Comprehensive metabolic 2000 panelon 05-15-2025 Albumin [Mass/Vol] 4.1 g/dL Normal 3.9-4.9 [facility] Comment on above: Order Comment: Speci men Type: BLOOD SPECIMEN [facility] Address: [address] [place] [address] Performed By: #### 2 4323-8, 3040-3 #### [facility] [place] [facility] CLIA [id number] [address] [place] [address] [place] ALP [Catalytic activity/Vol] 123 U/L Normal 34-123 [facility] Comment on above: Order Comment: Speci men Type: BLOOD SPECIMEN [facility] Address: [address] [place] [address] Performed By: #### 2 4323-8, 3040-3 #### [facility] [place] [facility] CLIA [id number] [address] [place] [address] [place] [facility] ALT With P-5'-P [Catalytic activity/Vol] 18 U/L Normal 7-38 [facility] Comment on above: Order Comment: Speci men Type: BLOOD SPECIMEN [facility] Address: [address] [place] [address] Performed By: #### 2 4323-8, 3040-3 #### [facility] [place] [facility] CLIA [id number] [address] [place] [address] [place] [facility] Anion gap [Moles/Vol] 13 mmol/L Normal 8-15 [facility] Comment on above: Order Comment: Speci men Type: BLOOD SPECIMEN [facility] Address: [address] [place] [address] Performed By: #### 2 4323-8, 3040-3 #### [facility] [place] [facility] CLIA [id number] [address] [place] [address] [place] AST With P-5'-P [Catalytic activity/Vol] 18 U/L Normal 13-35 [facility] Comment on above: Order Comment: Speci men Type: BLOOD SPECIMEN [facility] Address: [address] [place] [address] Performed By: #### 2 4323-8, 3040-3 #### [facility] [place] [facility] CLIA [id number] [address] [place] [address] [place] Bilirubin [Mass/Vol] 0.2 mg/dL Normal 0.2-1.3 [facility] Comment on above: Order Comment: Speci men Type: BLOOD SPECIMEN [facility] Address: [address] [place] [address] Performed By: #### 2 4323-8, 3039-3 #### [facility] [place] [facility] CLIA [id number] [address] [place] [address] [place] Calcium [Mass/Vol] 9.6 mg/dL Normal 8.5-10.2 [facility] Comment on above: Order Comment: Speci men Type: BLOOD SPECIMEN [facility] Address: [address] [place] [address] Performed By: #### 2 4323-8, 0-3 #### [facility] [place] [facility] CLIA [id number] [address] [place] [address] [place] Chloride [Moles/Vol] 101 mmol/L Normal 98-107 [facility] Comment on above: Order Comment: Speci men Type: BLOOD SPECIMEN [facility] Address: [address] [place] [address] Performed By: #### 2 4323-8, 3040-3 #### [facility] [place] [facility] CLIA [id number] [address] [place] [address] [place] CO2 [Moles/Vol] 22 mmol/L Normal 22-30 [facility] Comment on above: Order Comment: Speci men Type: BLOOD SPECIMEN [facility] Address: [address] [place] [address] Performed By: #### 2 4323-8, 3040-3 #### [facility] CLIA [id number] [address] [place] [address] [place] Creatinine [Mass/Vol] 0.70 mg/dL Normal 0.58-0.96 [facility] Comment on above: Order Comment: Aubree bowens Type: BLOOD SPECIMEN [facility] Address: [address] [place] [address] Performed By: #### 2 4323-8, 3039-3 #### [facility] CLIA [id number] [address] [place] [address] [place] eGFRcr SerPlBld CKD-EPI 2020 110 mL/min/1.73m??? Normal >=60 [facility] Comment on above: Order Comment: Aubree bowens Type: BLOOD SPECIMEN [facility] Address: [address] [place] [address] Result Comment: Isamar mated Glomerular Filtration Rate (eGFR) is calculated using the 2020 CKD-EPI creatinine equation. This equation utilizes serum creatinine, sex, and age as parameters. The creatinine assay has traceable calibration to isotope dilution-mass spectrometry. Refer to KDIGO guidelines for clinical interpretation. In patients with unstable renal function, e.g. those with acute kidney injury, the eGFR may not accurately reflect actual GFR. Performed By: #### 2 4323-8, 3040-3 #### [facility] CLIA [id number] [address] [place] [address] [place] Glucose [Mass/Vol] 102 mg/dL High 74-99 [facility] Comment on above: Order Comment: Aubree bowens Type: BLOOD SPECIMEN [facility] Address: [address] [place] [address] Result Comment: The [place] Diabetes Association (ADA) provides guidance for cutoff values for fasting glucose and random glucose. The ADA defines fasting as no caloric intake for at least 8 hours. Fasting plasma glucose results between 100 to 125 mg/dL indicate increased risk for diabetes (prediabetes). Fasting plasma glucose results greater than or equal to 126 mg/dL meet the criteria for diagnosis of diabetes. In the absence of unequivocal hyperglycemia, results should be confirmed by repeat testing. In a patient with classic symptoms of hyperglycemia or hyperglycemic crisis, random plasma glucose results greater than or equal to 200 mg/dL meet the criteria for diagnosis of diabetes. Reference: Standards of Medical Care in Diabetes 2016, [place] Diabetes Association. Diabetes Care. 2016.39(Suppl 1). Performed By: #### 2 4323-8, 3040-3 #### [facility] [place] [facility] CLIA [id number] [address] [place] [address] [place] Potassium [Moles/Vol] 3.7 mmol/L Normal 3.7-5.1 [facility] Comment on above: Order Comment: Speci men Type: BLOOD SPECIMEN [facility] Address: [address] [place] [address] Performed By: #### 2 4323-8, 0-3 #### [facility] [place] [facility] CLIA [id number] [address] [place] [address] [place] Protein [Mass/Vol] 7.3 g/dL Normal 6.3-8.0 [facility] Comment on above: Order Comment: Speci men Type: BLOOD SPECIMEN [facility] Address: [address] [place] [address] Performed By: #### 2 4323-8, 0-3 #### [facility] [place] [facility] CLIA [id number] [address] [place] [address] [place] Sodium [Moles/Vol] 136 mmol/L Normal 136-144 [facility] Comment on above: Order Comment: Speci men Type: BLOOD SPECIMEN [facility] Address: [address] [place] [address] Performed By: #### 2 4323-8, 3040-3 #### [facility] [place] [facility] CLIA [id number] [address] [place] [address] [place] Urea nitrogen [Mass/Vol] 10 mg/dL Normal 7-21 [facility] Comment on above: Order Comment: Speci men Type: BLOOD SPECIMEN [facility] Address: [facility] [place] [address] Performed By: #### 2 4323-8, 3040-3 #### [facility] CLIA [id number] [address] [place] [address] [facility] ED NOTEon 05-15-2025 ED NOTE HNO ID: [id number] Author: FLORENCE RODRIGUEZ MD Service: Emergency Medicine Author Type: Physician Type: ED Notes Filed: 05/16/2025 09:27 Note Text: Emergency Services: ED Call Back Questionnaire SERVICE DATE: 05/15/2025 Are you feeling better? Yes Any questions about discharge instructions and follow-up care? No Were you able to make a follow up appointment? No, referred to appointment hotline Do you have any further questions? No Is there anything that we could have done differently to improve your ED visit? No SIGNATURE: Florence Rodriguez MD PATIENT NAME: Howard Hall DATE: May 16, 2025 TIME: 9:27 AM Normal [facility] ED NOTE HNO ID: [id number] Author: REGINA CAMEJO RN Service: Emergency Medicine Author Type: Registered Nurse Type: ED Notes Filed: 05/15/2025 11:25 Note Text: 2nd set of blood cultures drawn from right chest port Normal [facility] ED PROV NOTEon 05-15-2025 ED PROV NOTE HNO ID: [id number] Author: MATTHEW STONE MD Service: Emergency Medicine Author Type: Physician Type: ED Provider Notes Filed: 05/16/2025 07:51 Note Text: ED Provider Note Patient Name: Howard Hall : 1980 SERVICE DATE: 05/15/25 History Patient presents with: Fever Patient is currently going chemotherapy for breast cancer with last injection Monday presents to the emergency department with concerns of her fever. Since yesterday patient's had cough, congestion, runny nose with sputum production. Tmax this morning was 100.4 temporal. Patient did not take anything for the fever, she is not currently on antibiotics. No sick contacts are noted Upper Respiratory Infection Presenting symptoms: congestion, cough, fatigue and rhinorrhea Severity: Moderate Onset quality: Gradual Duration: 1 day Timing: Intermittent Progression: Worsening Chronicity: New Relieved by: Nothing Worsened by: Nothing Ineffective treatments: None tried Risk factors: being elderly and immunosuppression Risk factors: no sick contacts PAST MEDICAL HISTORY Diagnosis Date Abnormal laboratory test Pt was treated for abnl thyroid test 2001 for 6 months Abnormal Pap smear of cervix 2012 [place] Anemia Anxiety anxiety History of pre-eclampsia in prior , currently (HCC) PAST SURGICAL HISTORY Procedure Laterality Date DILATION AND CURETTAGE DXAND/THER NONOBSTETRIC FAMILY HISTORY Problem Relation Age of Onset Heart Mother CHF other (anxiety) Mother Cancer Father brain other (anxiety) Father other (anxiety) Sister other (anxiety) Brother Breast Cancer Paternal Aunt other (leukemia) Maternal Uncle Breast Cancer Maternal Aunt Breast Cancer Paternal Aunt Cancer Maternal Aunt stomach Social History[1] ALLERGIES No Known Allergies Review of Systems Constitutional: Positive for fatigue. HENT: Positive for congestion and rhinorrhea. Respiratory: Positive for cough. All other systems reviewed and are negative. Physical Exam Vitals [05/15/25 0950] BP Pulse Temp Temp src Resp SpO2 Weight Height 136/96 (!) 102 37.1 ?C (98.7 ?F) -- 20 100 % 59 kg (130 lb) -- Physical Exam Vitals and nursing note reviewed. Constitutional: General: She is not in acute distress. Appearance: Normal appearance. She is not ill-appearing or toxic-appearing. HENT: Head: Normocephalic and atraumatic. Right Ear: There is no impacted cerumen. Left Ear: There is no impacted cerumen. Nose: Congestion and rhinorrhea present. Mouth/Throat: Mouth: Mucous membranes are moist. Pharynx: No oropharyngeal exudate or posterior oropharyngeal erythema. Eyes: General: Right eye: No discharge. Left eye: No discharge. Cardiovascular: Rate and Rhythm: Normal rate and regular rhythm. Pulses: Normal pulses. Heart sounds: No murmur heard. Pulmonary: Effort: Pulmonary effort is normal. No respiratory distress. Breath sounds: No wheezing or rales. Comments: Very coarse frequent cough Abdominal: General: Abdomen is flat. Tenderness: There is no right CVA tenderness or left CVA tenderness. Musculoskeletal: Cervical back: Normal range of motion and neck supple. No rigidity or tenderness. Right lower leg: No edema. Left lower leg: No edema. Lymphadenopathy: Cervical: No cervical adenopathy. Skin: General: Skin is warm and dry. Neurological: General: No focal deficit present. Mental Status: She is alert and oriented to person, place, and time. Mental status is at baseline. Psychiatric: Mood and Affect: Mood normal. Behavior: Behavior normal. Diagnostic Testing ED Labs Ordered and Reviewed - No data to display Procedures ED Course / Clinical Impression Clinical Impressions as of 05/15/25 1359 Upper respiratory tract infection, unspecified type Anemia, unspecified type MDM / Disposition / Plan This a 44-year-old female currently undergoing chemotherapy with last infusion Monday for breast cancer who presents to the emergency room with concerns over cough congestion rhinorrhea since yesterday with a fever of 100.4 temporal this morning. Laboratory studies were obtained on patient, and reassuring. Patient is not neutropenic. Patient actually has a white blood cell count of 5.8. There is concern however patient's anemic with a hemoglobin of 8.5. The last hemoglobin appreciated and patient is from almost 4 years ago and I cannot access her records from her oncologist office and I do not know what her new current baseline is. Patient was informed of the above, I put this in her discharge paperwork, and she is to follow-up with her current hemoglobin level. For infection aspect however the rest of the testing for this is negative. Chest x-ray is clear, urinalysis demonstrates no evidence of urinary tract infection and BUN, creatinine, the rest electrolytes are otherwise normal. Lact (more content not included)... Normal [facility] Lipase SerPl-cCncon 05-15-20 25 Lipase [Catalytic activity/Vol] 38 U/L Normal 16-61 [facility] Comment on above: Order Comment: Aubree bowens Type: BLOOD SPECIMENOrdering Facility: [facility] Address: [address] [place] [address] Performed By: #### 2 4323-8, 3040-3 ####[facility] [id number] [place] [address] [place] S pyo DNA Throat Ql AMINAH+prob castillo 05-15-2025 S. pyogenes DNA AMINAH+probe Ql (Throat) Not detected Normal Not detected [facility] Comment on above: Order Comment: Aubree bowens Type: SWAB [facility] Address: [address] [place] [address] Performed By: #### 6 0489-2 #### [facility] CLIA [id number] [address] [place] [address] [facility] SEPSIS LACTATEon 05-15-2025 Lactate [Moles/Vol] 1.2 mmol/L Normal <=2.0 [facility] Comment on above: Order Comment: Speci men Type: BLOOD SPECIMENOrdering Facility: [facility] Address: [address] [place] [address] Performed By: #### S LACT ####[facility] [id number] [place] [address] [facility] Urinalysis complete panel (U )on 05-15-2025 Bilirubin Ql (U) Negative Normal Negative [facility] Comment on above: Order Comment: Speci men Type: URINE SPECIMEN [facility] Address: [address] [place] [address] Performed By: #### 2 4356-8 #### [facility] CLIA [id number] [address] [place] [address] [facility] [place] Clarity (Unsp spec) Clear Normal Clear [facility] Comment on above: Order Comment: Speci men Type: URINE SPECIMEN [facility] Address: [address] [place] [address] Performed By: #### 2 4356-8 #### [facility] CLIA [id number] [address] [place] [address] [facility] [place] Color (U) Yellow Normal Yellow [facility] Comment on above: Order Comment: Speci men Type: URINE SPECIMEN [facility] Address: [address] [place] [address] Performed By: #### 2 4356-8 #### [facility] CLIA [id number] [address] [place] [address] [facility] [place] Epithelial cells LM.HPF (Urine sed) [#/Area] Moderate Normal [facility] Comment on above: Order Comment: Speci men Type: URINE SPECIMEN [facility] Address: [address] [place] [address] Performed By: #### 2 4356-8 #### [facility] CLIA [id number] [address] [place] [address] [facility] [place] Glucose Test strip (U) [Mass/Vol] Negative Normal Negative [facility] Comment on above: Order Comment: Speci men Type: URINE SPECIMEN [facility] Address: [address] [place] [address] Performed By: #### 2 4356-8 #### [facility] CLIA [id number] [address] [place] [address] [place] Hemoglobin Ql (U) Negative Normal Negative [facility] Comment on above: Order Comment: Speci men Type: URINE SPECIMEN [facility] Address: [address] [place] [address] Performed By: #### 2 4356-8 #### [facility] CLIA [id number] [address] [place] [address] [place] Ketones Ql (U) Negative Normal Negative [facility] Comment on above: Order Comment: Speci men Type: URINE SPECIMEN [facility] Address: [address] [place] [address] Performed By: #### 2 4356-8 #### [facility] CLIA [id number] [address] [place] [address] [place] Leukocyte esterase Test strip Ql (U) Negative Normal Negative [facility] Comment on above: Order Comment: Speci men Type: URINE SPECIMEN [facility] Address: [address] [place] [address] Performed By: #### 2 4356-8 #### [facility] CLIA [id number] [address] [place] [address] [place] Nitrite Ql (U) Negative Normal Negative [facility] Comment on above: Order Comment: Speci men Type: URINE SPECIMEN [facility] Address: [address] [place] [address] Performed By: #### 2 4356-8 #### [facility] CLIA [id number] [address] [place] [address] [place] pH (U) 6.0 [pH] Normal 5.0-8.0 [facility] Comment on above: Order Comment: Speci men Type: URINE SPECIMEN [facility] Address: [address] [place] [address] Performed By: #### 2 4356-8 #### [facility] CLIA [id number] [address] [place] [address] [place] Protein (U) [Mass/Vol] Negative Normal Negative [facility] Comment on above: Order Comment: Speci men Type: URINE SPECIMEN [facility] Address: [address] [place] [address] Performed By: #### 2 4356-8 #### [facility] CLIA [id number] [address] [place] [address] [place] RBC LM.HPF (Urine sed) [#/Area] 0-3 /HPF Normal 0-3 /HPF [facility] Comment on above: Order Comment: Speci men Type: URINE SPECIMEN [facility] Address: [address] [place] [address] Performed By: #### 2 4356-8 #### [facility] CLIA [id number] [address] [place] [address] [place] Specific gravity (U) [Rel density] 1.010 Normal 1.005-1.030 [facility] Comment on above: Order Comment: Speci men Type: URINE SPECIMEN [facility] Address: [address] [place] [address] Performed By: #### 2 4356-8 #### [facility] CLIA [id number] [address] [place] [address] [place] Urobilinogen Ql (U) 0.2 EU/dL Normal 0.2-1.0 EU/dL [facility] Comment on above: Order Comment: Speci men Type: URINE SPECIMEN [facility] Address: [address] [place] [address] Performed By: #### 2 4356-8 #### [facility] CLIA [id number] [address] [place] [address] [facility] WBC LM.HPF (Urine sed) [#/Area] 0-5 /HPF Normal 0-5 /HPF [facility] Comment on above: Order Comment: Speci men Type: URINE SPECIMEN [facility] Address: [address] [place] [address] Performed By: #### 2 4356-8 #### [facility] CLIA [id number] [address] [place] [address] [place] XR CHEST 1V FRONTALon 2024 XR CHEST 1V FRONTAL * * *Final Report* * * DATE OF EXAM: May 15 2025 10:54AM LDX 5290 - XR CHEST 1V FRONTAL / PROCEDURE REASON: Cough * * * * Physician Interpretation * * * * EXAM TITLE: AP/PA CHEST X RAY COMPARISON: None. CLINICAL HISTORY: Cough ENCOUNTER: Not applicable MQ: XC1_5 RESULT: Lines, tubes, and devices: Right internal jugular port venous catheter with tip overlying the mid aspect the SVC. Lungs and pleura: No consolidation. No lung mass. No pleural effusion. Cardiomediastinal silhouette: Unremarkable Other: Osseous structures and soft tissues grossly intact. IMPRESSION: No radiographic findings to suggest acute cardiopulmonary process. Emt Driver: PSCB Transcribe Date/Time: May 15 2025 11:01A Dictated by : LAURIE SOL MD This examination was interpreted and the report reviewed and electronically signed by: LAURIE SOL MD on May 15 2025 11:02AM EST [id number] Normal [facility] Absolute lymphocyte countOrd ered By: Arnaud Borja on 05-07-2025 Lymphocytes Auto (Unsp spec) [#/Vol] 1.91 10*3/uL 0.83-4.51 [facility] Absolute neutrophil countOrd ered By: Arnaud Borja on 05-07-2025 Neutrophils (Bld) [#/Vol] 3.4 10*3/uL 2.0-7.7 [facility] Anion gap in Serum or Plasma Ordered By: Arnaud Borja on 05-07-2025 Anion gap [Moles/Vol] 12 mmol/L - [facility] Automated lymphocyte count a s percentage of total leukocytesOrdered By: [facility] on 05-07-2025 Lymphocytes/100 WBC Auto (Unsp spec) 32.9 % [facility] BUN/creatinine ratioOrdered By: [facility] Huong on 05-07-2025 Urea nitrogen/Creatinine [Mass ratio] 14.9 mg/mg 05-19 [facility] Basophil percentageOrdered B y: Arnaud Borja on 05-07-2025 Basophils/100 WBC (Bld) 0.7 % 0- [facility] Bilirubin, totalOrdered By: [facility] on 05-07-2025 Bilirubin [Mass/Vol] 0.27 mg/dL 0.00-1.30 [facility] CBC W/Diff, Automatedon 10- Absolute Lymph 1.91 X10 3/uL Normal 0.83-4.51 [facility] Comment on above: Performed By: #### L 500.2500, L501.5200, L100.0100 #### [facility] [address] [place], [address] Absolute Neut 3.4 X10 3/uL Normal 2.0-7.7 [facility] Comment on above: Performed By: #### L 500.2500, L501.5200, L100.0100 #### [facility] [address] [place], [address] Basophils/100 WBC (Bld) 0.7 % Normal 0-1 [facility] Comment on above: Performed By: #### L 500.2500, L501.5200, L100.0100 #### [facility] [address] [place], [address] Eosinophils/100 WBC (Bld) 2.1 % Normal 0-5 [facility] Comment on above: Performed By: #### L 500.2500, L501.5200, L100.0100 #### [facility] [address] [place], [address] Erythrocyte distribution width (RBC) [Ratio] 17.2 % High 11.6-14.6 [facility] Comment on above: Performed By: #### L 500.2500, L501.5200, L100.0100 #### [facility] [address] [place], [address] Hematocrit (Bld) [Volume fraction] 28.1 % Low 37-47 [facility] Comment on above: Performed By: #### L 500.2500, L501.5200, L100.0100 #### [facility] [address] [place], [address] Hemoglobin (Bld) [Mass/Vol] 9.3 g/dL Low 12.0-15.0 [facility] Comment on above: Performed By: #### L 500.2500, L501.5200, L100.0100 #### [facility] [address] [place], [address] IG% 0.200 Normal 0.0-0.9 [facility] Comment on above: Result Comment: IG% - Immature Granulocytes (promyelocytes, myelocytes and metamyelocytes) > 1% indicates that a LEFT SHIFT is Present. Performed By: #### L 500.2500, L501.5200, L100.0100 #### [facility] [address] [place], [address] Lymphocytes/100 WBC (Bld) 32.9 % Normal 19-41 [facility] Comment on above: Performed By: #### L 500.2500, L501.5200, L100.0100 #### [facility] [address] [place], [address] MCH (RBC) [Entitic mass] 30.0 pg Normal 27.0-32.0 [facility] Comment on above: Performed By: #### L 500.2500, L501.5200, L100.0100 #### [facility] [address] [place], [address] MCHC (RBC) [Mass/Vol] 33.1 g/dL Normal 32-36 [facility] Comment on above: Performed By: #### L 500.2500, L501.5200, L100.0100 #### [facility] [address] [place], [address] MCV (RBC) [Entitic vol] 90.6 fL Normal 81-99 [facility] Comment on above: Performed By: #### L 500.2500, L501.5200, L100.0100 #### [facility] [address] [place], [address] Monocytes/100 WBC (Bld) 5.5 % Normal 0-10 [facility] Comment on above: Performed By: #### L 500.2500, L501.5200, L100.0100 #### [facility] [address] [place], [address] Neutrophils/100 WBC (Bld) 58.6 % Normal 47-70 [facility] Comment on above: Performed By: #### L 500.2500, L501.5200, L100.0100 #### [facility] [address] [place], [address] Nucleated RBC (Bld) [#/Vol] 0 10*3/uL Normal 0-5 [facility] Comment on above: Performed By: #### L 500.2500, L501.5200, L100.0100 #### [facility] [address] [place], [address] Platelet mean volume (Bld) [Entitic vol] 9.1 fL Normal 6.2-12.0 [facility] Comment on above: Performed By: #### L 500.2500, L501.5200, L100.0100 #### [facility] [address] [place], [address] Platelets (Bld) [#/Vol] 333 10*3/uL Normal 150-450 [facility] Comment on above: Performed By: #### L 500.2500, L501.5200, L100.0100 #### [facility] [address] [place], [address] RBC (Bld) [#/Vol] 3.10 10*6/uL Low 4.2-5.4 [facility] Comment on above: Performed By: #### L 500.2500, L501.5200, L100.0100 #### [facility] [address] [place], [address] RDW SD 57.1 fl High 35.1-43.9 [facility] Comment on above: Performed By: #### L 500.2500, L501.5200, L100.0100 #### [facility] [address] [place], [address] WBC (Bld) [#/Vol] 5.8 10*3/uL Normal 4.4-11.0 [facility] Comment on above: Performed By: #### L 500.2500, L501.5200, L100.0100 #### [facility] [address] [place], [address] Carbon dioxide, total [Moles /volume] in Central venous bloodOrdered By: Arnaud Borja on 05-07-2025 CO2 [Moles/Vol] 23.4 mmol/L 21.0-32.0 [facility] Chloride assayOrdered By: Jluis Borja on 05-07-2025 Chloride [Moles/Vol] 104 mmol/L 98-108 [facility] Comprehensive Metabolic Prof ilon 05-07-2025 Albumin [Mass/Vol] 4.1 g/dL Normal 3.5-5.0 [facility] Comment on above: Performed By: #### L 500.2500, L501.5200, L100.0100 #### [facility] [address] [place], [address] Albumin/Globulin [Mass ratio] 1.2 {ratio} Normal 0.9-2.4 [facility] Comment on above: Performed By: #### L 500.2500, L501.5200, L100.0100 #### [facility] [address] [place], [address] ALK PHOS 121 U/L High 35-104 [facility] Comment on above: Performed By: #### L 500.2500, L501.5200, L100.0100 #### [facility] [address] [place], [address] ALT [Catalytic activity/Vol] 21 U/L Normal <=34 [facility] Comment on above: Performed By: #### L 500.2500, L501.5200, L100.0100 #### [facility] [address] [place], [address] AST [Catalytic activity/Vol] 22 U/L Normal <=31 [facility] Comment on above: Performed By: #### L 500.2500, L501.5200, L100.0100 #### [facility] [address] [place], [address] Bilirubin [Mass/Vol] 0.27 mg/dL Normal 0.00-1.30 [facility] Comment on above: Performed By: #### L 500.2500, L501.5200, L100.0100 #### [facility] [address] [place], [address] BUN/CRE 14.9 RATIO Normal 10-20 [facility] Comment on above: Performed By: #### L 500.2500, L501.5200, L100.0100 #### [facility] [address] [place], [address] Calcium [Mass/Vol] 9.5 mg/dL Normal 7.6-11.0 [facility] Comment on above: Performed By: #### L 500.2500, L501.5200, L100.0100 #### [facility] [address] [place], [address] Chloride [Moles/Vol] 104 mmol/L Normal 98-108 [facility] Comment on above: Performed By: #### L 500.2500, L501.5200, L100.0100 #### [facility] [address] [place], [address] CO2 [Moles/Vol] 23.4 mmol/L Normal 21.0-32.0 [facility] Comment on above: Performed By: #### L 500.2500, L501.5200, L100.0100 #### [facility] [address] [place], [address] Creatinine [Mass/Vol] 0.83 mg/dL Normal 0.70-1.20 [facility] Comment on above: Performed By: #### L 500.2500, L501.5200, L100.0100 #### [facility] [address] [place], [address] ECRCL 77.83 ml/min Normal 50-250 [facility] Comment on above: Performed By: #### L 500.2500, L501.5200, L100.0100 #### [facility] [address] [place], [address] GAP 12 Normal 5-15 [facility] Comment on above: Performed By: #### L 500.2500, L501.5200, L100.0100 #### [facility] [address] [place], [address] GFR/1.73 sq M.predicted among non-blacks MDRD (S/P/Bld) [Vol rate/Area] 89 mL/min/{1.73_m2} Normal >60 [facility] Comment on above: Result Comment: mL/m in/1.73m2 CKD-EPI Creatinine Equation (2020) Performed By: #### L 500.2500, L501.5200, L100.0100 #### [facility] [address] [place], [address] Globulin (S) [Mass/Vol] 3.5 g/dL Normal 2.2-4.2 [facility] Comment on above: Performed By: #### L 500.2500, L501.5200, L100.0100 #### [facility] [address] [place], [address] Glucose [Mass/Vol] 98 mg/dL Normal 70-99 [facility] Comment on above: Performed By: #### L 500.2500, L501.5200, L100.0100 #### [facility] [address] [place], [address] Potassium [Moles/Vol] 3.6 mmol/L Normal 3.3-5.1 [facility] Comment on above: Performed By: #### L 500.2500, L501.5200, L100.0100 #### [facility] [address] [place], [address] Sodium [Moles/Vol] 140 mmol/L Normal 133-145 [facility] Comment on above: Performed By: #### L 500.2500, L501.5200, L100.0100 #### [facility] [address] [place], [address] T PROT 7.5 g/dL Normal 5.9-8.4 [facility] Comment on above: Performed By: #### L 500.2500, L501.5200, L100.0100 #### [facility] [address] [place], [address] Urea nitrogen [Mass/Vol] 12 mg/dL Normal 4-19 [facility] Comment on above: Performed By: #### L 500.2500, L501.5200, L100.0100 #### [facility] [address] [place], [address] Eosinophil percentageOrdered By: Arnaud Borja on 05-07-2025 Eosinophils/100 WBC (Bld) 2.1 % 0-5 [facility] Erythrocyte distribution wid th ratioOrdered By: [facility] on 05-07-2025 Erythrocyte distribution width (RBC) [Ratio] 17.2 % High 11.6-14.6 [facility] Erythrocyte distribution wid th standard deviationOrdered By: [facility] on 05-07-2025 Erythrocyte distribution width (RBC) [Ratio] 57.1 fl High 35.1-43.9 [facility] Ferritinon 05-07-2025 Ferritin [Mass/Vol] 170 ng/mL Normal 22-378 [facility] Comment on above: Performed By: #### L 501.2300 #### [facility] [address] [place], [address] Glomerular filtration rate ( GFR) estimation/1.73 sq m using serum, plasma, or whole bOrdered By: Arnaud Borja on 05-07-2025 GFR/1.73 sq M.predicted among non-blacks MDRD (S/P/Bld) [Vol rate/Area] 89 mL/min/{1.73_m2} >60 [facility] Comment on above: mL/min/1.73m2 CKD-EP I Creatinine Equation (2020) Hematocrit Auto (Bld) [Volum e fraction]Ordered By: Arnaud Borja on 05-07-2025 Hematocrit (Bld) [Volume fraction] 28.1 % Low 37-47 [facility] Hemoglobin measurementOrdere d By: Arnaud Borja on 05-07-2025 Hemoglobin (Bld) [Mass/Vol] 9.3 g/dL Low 12.0-15.0 [facility] Immature granulocytes/100 WB C Auto (Bld)Ordered By: Arnaud Borja on 05-07-2025 Immature granulocytes/100 WBC (Bld) 0.200 % 0.0-0.9 [facility] Comment on above: IG% - Immature Granu locytes (promyelocytes, myelocytes and metamyelocytes) > 1% indicates that a LEFT SHIFT is Present. Laboratory - Chemistry and C hemistry - challengeOrdered By: Arnaud Borja on 05-07-2025 AST [Catalytic activity/Vol] 22 U/L <32 [facility] MCV (mean corpuscular volume ) determinationOrdered By: [facility] on 05-07-2025 MCV (RBC) [Entitic vol] 90.6 fL 81-99 [facility] Magnesiumon 05-07-2025 Magnesium [Mass/Vol] 2.0 mg/dL Normal 1.5-2.2 [facility] Comment on above: Performed By: #### L 500.2500, L501.5200, L100.0100 #### [facility] [address] [place], [address] Magnesium measurement (mass/ volume)Ordered By: Arnaud Borja on 05-07-2025 Magnesium (Unsp spec) [Mass/Vol] 2.0 mg/dL 1.5-2.2 [facility] Mean corpuscular hemoglobin (MCH) determinationOrdered By: Arnaud Borja on 05-07-2025 MCH (RBC) [Entitic mass] 30.0 pg 27.0-32.0 [facility] Mean corpuscular hemoglobin concentration (MCHC) determinationOrdered By: Arnaud Borja on 05-07-2025 MCHC (RBC) [Mass/Vol] 33.1 g/dL 32-36 [facility] Mean platelet volume determi nationOrdered By: Arnaud Borja on 05-07-2025 Platelet mean volume (Bld) [Entitic vol] 9.1 fL 6.2-12.0 [facility] Monocyte percentageOrdered B y: Arnaud Borja on 05-07-2025 Monocytes/100 WBC (Bld) 5.5 % 0-10 [facility] Neutrophil percentageOrdered By: Arnaud Borja on 05-07-2025 Neutrophils/100 WBC (Bld) 58.6 % 47-70 [facility] Nucleated red blood cell per centageOrdered By: [facility] on 05-07-2025 Nucleated RBC/100 WBC (Bld) [Ratio] 0 % 0-5 [facility] Oncology Visit Reporton 10-0 Oncology Visit Report [facility] [place] [facility] [address] [place] [address] OFFICE VISIT Date of Service: 05/07/25 0904 MR#: [id number] Acct: [id number] Name: HOWARD HALL Falguni Rep #: [id number] : 1980 From: Kelsey Holland NP [employer] -C Age/Sex: 44/F Location: [facility] Status: Signed HPI Subjective Date of Service 05/07/25 Chief Complaint Breast cancer on treatment History of Present Illness 44-year-old female menopausal [...] MALIGNANCY. December 10, 2024: A. Left breast, "mass", 9-11 o'clock, 5 CMFN, biopsy: * Invasive [...] in 100% of tumor cells PROGESTERONE RECEPTOR (HI): Positive, strong immunoreactivity in 100% of tumor cells HER2/DIEGO IHC: Positive, (Score 3+) KI67 IHC: 40% B. Left axilla, lymph node, biopsy: * Metastatic mammary carcinoma (See note) Note: The pancytokeratin stain is positive supporting the diagnosis. January 13, 2025 CT chest abdomen and pelvis: IMPRESSION: 1. Known mass in the left breast consistent with carcinoma. 2. There is no evidence of metastatic disease. January 17, 2025 bone scan: IMPRESSION: No evidence of metastatic breast cancer. Echocardiogram: Normal LV size. The left ventricular ejection fraction is 60%. Stage I diastolic dysfunction. The global longitudinal strain is normal. The global longitudinal strain = -16.7% (normal). Treatment summary and response: [facility] February 13, 2025 Interval History The patient is presenting to clinic for an evaluation anticipating she will begin c4 neoadjuvan (more content not included)... Normal [facility] Platelet countOrdered By: Jluis Borja on 05-07-2025 Platelets (Bld) [#/Vol] 333 10*3/uL 150-450 [facility] Potassium measurement (mass/ volume)Ordered By: Arnaud Borja on 05-07-2025 Potassium (Unsp spec) [Mass/Vol] 3.6 mmol/L 3.3-5.1 [facility] RBC Auto (Bld) [#/Vol]Ordere d By: Arnaud Borja on 05-07-2025 RBC (Bld) [#/Vol] 3.10 10*6/uL Low 4.2-5.4 [facility] Retic Panelon 05-07-2025 IM RET FRACTION 13.50 Normal 3.00-15.90 [facility] Comment on above: Performed By: #### L 085.7620 #### [facility] [address] [place], [address] RET-HE 31.0 pg Normal 30-35 [facility] Comment on above: Performed By: #### L 674.2300 #### [facility] [address] [place], [place], [id number] Retic Count 1.96 High 0.5-1.5 [facility] Comment on above: Performed By: #### L 501.2300 #### [facility] [address] [facility] [place], [place], [address] Reticulocyte hemoglobin equi valent (RET-He) measurementOrdered By: Arnaud Borja on 05-07-2025 Hemoglobin (Reticulocytes) [Entitic mass] 31.0 pg 30-35 [facility] Reticulocytes Auto (Bld) [#/ Vol]Ordered By: Arnaud Borja on 05-07-2025 Reticulocytes/100 RBC (Bld) 1.96 % High 0.5-1.5 [facility] Serum creatinine measurement (mass/volume)Ordered By: Arnaud Borja on 05-07-2025 Creatinine [Mass/Vol] 0.83 mg/dL 0.70-1.20 [facility] Serum globulin measurementOr dered By: Arnaud Borja on 05-07-2025 Globulin (S) [Mass/Vol] 3.5 g/dL 2.2-4.2 [facility] Serum glucose measurement (m ass/volume)Ordered By: Arnaud Borja on 05-07-2025 Glucose [Mass/Vol] 98 mg/dL 70-99 [facility] Serum or plasma alanine rainey otransferase (ALT) measurementOrdered By: Arnaud Borja on 05-07-2025 ALT [Catalytic activity/Vol] 21 U/L <35 [facility] Serum or plasma albumin ceasar urement (mass/volume)Ordered By: Arnaud Borja on 05-07-2025 Albumin [Mass/Vol] 4.1 g/dL 3.5-5.0 [facility] Serum or plasma albumin/glob ulin mass ratioOrdered By: Arnaud Borja on 05-07-2025 Albumin/Globulin [Mass ratio] 1.2 {ratio} 0.9-2.4 [facility] Serum or plasma alkaline dasia sphatase measurementOrdered By: Arnaud Borja on 05-07-2025 ALP [Catalytic activity/Vol] 121 U/L High 35-104 [facility] Serum or plasma calcium ceasar urement (mass/volume)Ordered By: Arnaud Huong on 05-07-2025 Calcium [Mass/Vol] 9.5 mg/dL 7.6-11.0 [facility] Serum or plasma urea nitroge n measurement (mass/volume)Ordered By: Arnaud Huong on 05-07-2025 Urea nitrogen [Mass/Vol] 12 mg/dL 4-19 [facility] Sodium levelOrdered By: Meir harvey Huong on 05-07-2025 Sodium [Moles/Vol] 140 mmol/L 133-145 [facility] Total proteinOrdered By: Charanjit mcmahan Huong on 05-07-2025 Protein [Mass/Vol] 7.5 g/dL 5.9-8.4 [facility] Urinalysis, Completeon 05-07 BACTERIA RARE Normal None Seen [facility] Comment on above: Order Comment: CLEAN CATCH Performed By: #### L 400.0001 ####[facility] [address] [facility] [address] EPI,SQUAMOUS 0-5 SEEN Normal 5-10 [facility] Comment on above: Order Comment: CLEAN CATCH Performed By: #### L 400.0001 ####[facility] [address] [facility] [address] WBC 0-5 SEEN Normal 0-5 [facility] Comment on above: Order Comment: CLEAN CATCH Performed By: #### L 400.0001 ####[facility] [address] [place], [address] Mucus Ql (Urine sed) 0 SEEN Normal [facility] Comment on above: Order Comment: CLEAN CATCH Performed By: #### L 400.0001 ####[facility] [address] [place], [address] RBC 0 SEEN Normal 0-5 [facility] Comment on above: Order Comment: CLEAN CATCH Performed By: #### L 400.0001 ####[facility] [address] [place], [address] White blood cell (WBC) count Ordered By: Arnaud Borja on 05-07-2025 WBC (Bld) [#/Vol] 5.8 10*3/uL 4.4-11.0 [facility] CBC W/Diff, Automatedon 10-0 Absolute Neut Normal 2.0-7.7 [facility] Comment on above: Result Comment: NO S PECIMEN COLLECTED Performed By: #### L 500.4050, L100.0100 #### [facility] [address] [place], [address] HCT Normal 37-47 [facility] Comment on above: Result Comment: NO S PECIMEN COLLECTED Performed By: #### L 500.4050, L100.0100 #### [facility] [address] [place], [address] HGB Normal 12.0-15.0 [facility] Comment on above: Result Comment: NO S PECIMEN COLLECTED Performed By: #### L 500.4050, L100.0100 #### [facility] [address] [place], [address] MCH Normal 27.0-32.0 [facility] Comment on above: Result Comment: NO S PECIMEN COLLECTED Performed By: #### L 500.4050, L100.0100 #### [facility] [address] [place], [address] MCHC Normal 32-36 [facility] Comment on above: Result Comment: NO S PECIMEN COLLECTED Performed By: #### L 500.4050, L100.0100 #### [facility] [address] [place], [address] MCV Normal 81-99 [facility] Comment on above: Result Comment: NO S PECIMEN COLLECTED Performed By: #### L 500.4050, L100.0100 #### [facility] [address] [place], [address] NEUT% Normal 47-70 [facility] Comment on above: Result Comment: NO S PECIMEN COLLECTED Performed By: #### L 500.4050, L100.0100 #### [facility] [address] [place], [address] PLT Normal 150-450 [facility] Comment on above: Result Comment: NO S PECIMEN COLLECTED Performed By: #### L 500.4050, L100.0100 #### [facility] [address] [place], [address] RBC Normal 4.2-5.4 [facility] Comment on above: Result Comment: NO S PECIMEN COLLECTED Performed By: #### L 500.4050, L100.0100 #### [facility] [address] [place], [address] RDW CV Normal 11.6-14.6 [facility] Comment on above: Result Comment: NO S PECIMEN COLLECTED Performed By: #### L 500.4050, L100.0100 #### [facility] [address] [place], [address] RDW SD Normal 35.1-43.9 [facility] Comment on above: Result Comment: NO S PECIMEN COLLECTED Performed By: #### L 500.4050, L100.0100 #### [facility] [address] [place], [address] WBC Normal 4.4-11.0 [facility] Comment on above: Result Comment: NO S PECIMEN COLLECTED Performed By: #### L 500.4050, L100.0100 #### [facility] [address] [place], [address] Comprehensive Metabolic Prof ilon 04-30-2025 ALB Normal 3.5-5.0 [facility] Comment on above: Result Comment: NO S PECIMEN COLLECTED Performed By: #### L 500.4050, L100.0100 #### [facility] [address] [place], [address] ALK PHOS Normal 35-104 [facility] Comment on above: Result Comment: NO S PECIMEN COLLECTED Performed By: #### L 500.4050, L100.0100 #### [facility] [address] [place], [address] ALT Normal <=34 [facility] Comment on above: Result Comment: NO S PECIMEN COLLECTED Performed By: #### L 500.4050, L100.0100 #### [facility] [address] [place], [address] AST Normal <=31 [facility] Comment on above: Result Comment: NO S PECIMEN COLLECTED Performed By: #### L 500.4050, L100.0100 #### [facility] [address] [place], [address] BUN Normal 4-19 [facility] Comment on above: Result Comment: NO S PECIMEN COLLECTED Performed By: #### L 500.4050, L100.0100 #### [facility] [address] [place], [address] BUN/CRE Normal 10-20 [facility] Comment on above: Result Comment: NO S PECIMEN COLLECTED Performed By: #### L 500.4050, L100.0100 #### [facility] [address] [place], [address] Calcium Normal 7.6-11.0 [facility] Comment on above: Result Comment: NO S PECIMEN COLLECTED Performed By: #### L 500.4050, L100.0100 #### [facility] [address] [place], [address] CL Normal 98-108 [facility] Comment on above: Result Comment: NO S PECIMEN COLLECTED Performed By: #### L 500.4050, L100.0100 #### [facility] [address] [place], [address] CO2 Normal 21.0-32.0 [facility] Comment on above: Result Comment: NO S PECIMEN COLLECTED Performed By: #### L 500.4050, L100.0100 #### [facility] [address] [place], [address] CREAT,SERUM Normal 0.70-1.20 [facility] Comment on above: Result Comment: NO S PECIMEN COLLECTED Performed By: #### L 500.4050, L100.0100 #### [facility] [address] [place], [address] eGFR Normal >60 [facility] Comment on above: Result Comment: NO S PECIMEN COLLECTED Performed By: #### L 500.4050, L100.0100 #### [facility] [address] [place], [address] GAP Normal 5-15 [facility] Comment on above: Result Comment: NO S PECIMEN COLLECTED Performed By: #### L 500.4050, L100.0100 #### [facility] [address] [place], [address] GLU Normal 70-99 [facility] Comment on above: Result Comment: NO S PECIMEN COLLECTED Performed By: #### L 500.4050, L100.0100 #### [facility] [address] [place], [address] Potassium Normal 3.3-5.1 [facility] Comment on above: Result Comment: NO S PECIMEN COLLECTED Performed By: #### L 500.4050, L100.0100 #### [facility] [address] [place], [address] T BILI Normal 0.00-1.30 [facility] Comment on above: Result Comment: NO S PECIMEN COLLECTED Performed By: #### L 500.4050, L100.0100 #### [facility] [address] [place], [address] T PROT Normal 5.9-8.4 [facility] Comment on above: Result Comment: NO S PECIMEN COLLECTED Performed By: #### L 500.4050, L100.0100 #### [facility] [address] [place], [address] Comprehensive Metabolic Profil Normal 133-145 [facility] Comment on above: Result Comment: NO S PECIMEN COLLECTED Performed By: #### L 500.4050, L100.0100 #### [facility] [address] [place], [address] CBC W/Diff, Automatedon 09-2 Absolute Neut Normal 2.0-7.7 [facility] Comment on above: Result Comment: NO S PECIMEN COLLECTED Performed By: #### L 500.4050, L100.0100 #### [facility] [address] [place], [address] HCT Normal 37-47 [facility] Comment on above: Result Comment: NO S PECIMEN COLLECTED Performed By: #### L 500.4050, L100.0100 #### [facility] [address] [place], [address] HGB Normal 12.0-15.0 [facility] Comment on above: Result Comment: NO S PECIMEN COLLECTED Performed By: #### L 500.4050, L100.0100 #### [facility] [address] [place], [address] MCH Normal 27.0-32.0 [facility] Comment on above: Result Comment: NO S PECIMEN COLLECTED Performed By: #### L 500.4050, L100.0100 #### [facility] [address] [place], [address] MCHC Normal 32-36 [facility] Comment on above: Result Comment: NO S PECIMEN COLLECTED Performed By: #### L 500.4050, L100.0100 #### [facility] [address] [place], [address] MCV Normal 81-99 [facility] Comment on above: Result Comment: NO S PECIMEN COLLECTED Performed By: #### L 500.4050, L100.0100 #### [facility] [address] [place], [address] NEUT% Normal 47-70 [facility] Comment on above: Result Comment: NO S PECIMEN COLLECTED Performed By: #### L 500.4050, L100.0100 #### [facility] [address] [place], [address] PLT Normal 150-450 [facility] Comment on above: Result Comment: NO S PECIMEN COLLECTED Performed By: #### L 500.4050, L100.0100 #### [facility] [address] [place], [address] RBC Normal 4.2-5.4 [facility] Comment on above: Result Comment: NO S PECIMEN COLLECTED Performed By: #### L 500.4050, L100.0100 #### [facility] [address] [place], [address] RDW CV Normal 11.6-14.6 [facility] Comment on above: Result Comment: NO S PECIMEN COLLECTED Performed By: #### L 500.4050, L100.0100 #### [facility] [address] [place], [address] RDW SD Normal 35.1-43.9 [facility] Comment on above: Result Comment: NO S PECIMEN COLLECTED Performed By: #### L 500.4050, L100.0100 #### [facility] [address] [place], [address] WBC Normal 4.4-11.0 [facility] Comment on above: Result Comment: NO S PECIMEN COLLECTED Performed By: #### L 500.4050, L100.0100 #### [facility] [address] [place], [address] Comprehensive Metabolic Prof ilon 04-23-2025 ALB Normal 3.5-5.0 [facility] Comment on above: Result Comment: NO S PECIMEN COLLECTED Performed By: #### L 500.4050, L100.0100 #### [facility] [address] [place], [address] ALK PHOS Normal 35-104 [facility] Comment on above: Result Comment: NO S PECIMEN COLLECTED Performed By: #### L 500.4050, L100.0100 #### [facility] [address] [place], [address] ALT Normal <=34 [facility] Comment on above: Result Comment: NO S PECIMEN COLLECTED Performed By: #### L 500.4050, L100.0100 #### [facility] [address] [place], [address] AST Normal <=31 [facility] Comment on above: Result Comment: NO S PECIMEN COLLECTED Performed By: #### L 500.4050, L100.0100 #### [facility] [address] [place], [address] BUN Normal 4-19 [facility] Comment on above: Result Comment: NO S PECIMEN COLLECTED Performed By: #### L 500.4050, L100.0100 #### [facility] [address] [place], [address] BUN/CRE Normal 10-20 [facility] Comment on above: Result Comment: NO S PECIMEN COLLECTED Performed By: #### L 500.4050, L100.0100 #### [facility] [address] [place], [address] Calcium Normal 7.6-11.0 [facility] Comment on above: Result Comment: NO S PECIMEN COLLECTED Performed By: #### L 500.4050, L100.0100 #### [facility] [address] [place], [address] CL Normal 98-108 [facility] Comment on above: Result Comment: NO S PECIMEN COLLECTED Performed By: #### L 500.4050, L100.0100 #### [facility] [address] [place], [address] CO2 Normal 21.0-32.0 [facility] Comment on above: Result Comment: NO S PECIMEN COLLECTED Performed By: #### L 500.4050, L100.0100 #### [facility] [address] [place], [address] CREAT,SERUM Normal 0.70-1.20 [facility] Comment on above: Result Comment: NO S PECIMEN COLLECTED Performed By: #### L 500.4050, L100.0100 #### [facility] [address] [place], [address] eGFR Normal >60 [facility] Comment on above: Result Comment: NO S PECIMEN COLLECTED Performed By: #### L 500.4050, L100.0100 #### [facility] [address] [place], [address] GAP Normal 5-15 [facility] Comment on above: Result Comment: NO S PECIMEN COLLECTED Performed By: #### L 500.4050, L100.0100 #### [facility] [address] [place], [address] GLU Normal 70-99 [facility] Comment on above: Result Comment: NO S PECIMEN COLLECTED Performed By: #### L 500.4050, L100.0100 #### [facility] [address] [place], [address] Potassium Normal 3.3-5.1 [facility] Comment on above: Result Comment: NO S PECIMEN COLLECTED Performed By: #### L 500.4050, L100.0100 #### [facility] [address] [place], [address] T BILI Normal 0.00-1.30 [facility] Comment on above: Result Comment: NO S PECIMEN COLLECTED Performed By: #### L 500.4050, L100.0100 #### [facility] [address] [place], [address] T PROT Normal 5.9-8.4 [facility] Comment on above: Result Comment: NO S PECIMEN COLLECTED Performed By: #### L 500.4050, L100.0100 #### [facility] [address] [place], [address] Comprehensive Metabolic Profil Normal 133-145 [facility] Comment on above: Result Comment: NO S PECIMEN COLLECTED Performed By: #### L 500.4050, L100.0100 #### [facility] [address] [place], [address] Absolute lymphocyte countOrd ered By: Arnaud Borja on 04-02-2025 Lymphocytes Auto (Unsp spec) [#/Vol] 1.58 10*3/uL 0.83-4.51 [facility] Absolute neutrophil countOrd ered By: Arnaud Borja on 04-02-2025 Neutrophils (Bld) [#/Vol] 3.5 10*3/uL 2.0-7.7 [facility] Anion gap in Serum or Plasma Ordered By: Arnaud Borja on 04-02-2025 Anion gap [Moles/Vol] 11 mmol/L 5-15 [facility] Automated lymphocyte count a s percentage of total leukocytesOrdered By: Arnaud Crummusa on 04-02-2025 Lymphocytes/100 WBC Auto (Unsp spec) 28.1 % 19-41 [facility] BUN/creatinine ratioOrdered By: [facility] on 04-02-2025 Urea nitrogen/Creatinine [Mass ratio] 24.2 mg/mg High 10-20 [facility] Basophil percentageOrdered B y: Arnaud العلي on 04-02-2025 Basophils/100 WBC (Bld) 0.9 % 0-1 [facility] Bilirubin, totalOrdered By: [facility] on 04-02-2025 Bilirubin [Mass/Vol] 0.19 mg/dL 0.00-1.30 [facility] CBC W/Diff, Automatedon Absolute Lymph 1.58 X10 3/uL Normal 0.83-4.51 [facility] Comment on above: Performed By: #### L 501.2300 #### [facility] [address] [place], [address] Absolute Neut 3.5 X10 3/uL Normal 2.0-7.7 [facility] Comment on above: Performed By: #### L 501.2300 #### [facility] [address] [place], [address] Basophils/100 WBC (Bld) 0.9 % Normal 0-1 [facility] Comment on above: Performed By: #### L 501.2300 #### [facility] [address] [place], [address] Eosinophils/100 WBC (Bld) 0.2 % Normal 0-5 [facility] Comment on above: Performed By: #### L 501.2300 #### [facility] [address] [place], [address] Erythrocyte distribution width (RBC) [Ratio] 13.2 % Normal 11.6-14.6 [facility] Comment on above: Performed By: #### L 501.2300 #### [facility] [address] [place], [address] Hematocrit (Bld) [Volume fraction] 24.0 % Low 37-47 [facility] Comment on above: Performed By: #### L 501.2300 #### [facility] [address] [place], [address] Hemoglobin (Bld) [Mass/Vol] 8.1 g/dL Low 12.0-15.0 [facility] Comment on above: Performed By: #### L 501.2300 #### [facility] [address] [place], [address] IG% 0.200 Normal 0.0-0.9 [facility] Comment on above: Result Comment: IG% - Immature Granulocytes (promyelocytes, myelocytes and metamyelocytes) > 1% indicates that a LEFT SHIFT is Present. Performed By: #### L 501.2300 #### [facility] [address] [place], [address] Lymphocytes/100 WBC (Bld) 28.1 % Normal 19-41 [facility] Comment on above: Performed By: #### L 501.2300 #### [facility] [address] [place], [address] MCH (RBC) [Entitic mass] 28.9 pg Normal 27.0-32.0 [facility] Comment on above: Performed By: #### L 501.2300 #### [facility] [address] [place], [address] MCHC (RBC) [Mass/Vol] 33.8 g/dL Normal 32-36 [facility] Comment on above: Performed By: #### L 501.2300 #### [facility] [address] [place], [address] MCV (RBC) [Entitic vol] 85.7 fL Normal 81-99 [facility] Comment on above: Performed By: #### L 501.2300 #### [facility] [address] [place], [address] Monocytes/100 WBC (Bld) 9.2 % Normal 0-10 [facility] Comment on above: Performed By: #### L 501.2300 #### [facility] [address] [place], [address] Neutrophils/100 WBC (Bld) 61.4 % Normal 47-70 [facility] Comment on above: Performed By: #### L 501.2300 #### [facility] [address] [place], [address] Nucleated RBC (Bld) [#/Vol] 0 10*3/uL Normal 0-5 [facility] Comment on above: Performed By: #### L 501.2300 #### [facility] [address] [place], [address] Platelet mean volume (Bld) [Entitic vol] 9.8 fL Normal 6.2-12.0 [facility] Comment on above: Performed By: #### L 501.2300 #### [facility] [address] [place], [address] Platelets (Bld) [#/Vol] 243 10*3/uL Normal 150-450 [facility] Comment on above: Performed By: #### L 501.2300 #### [facility] [address] [place], [address] RBC (Bld) [#/Vol] 2.80 10*6/uL Low 4.2-5.4 [facility] Comment on above: Performed By: #### L 501.2300 #### [facility] [address] [place], [address] RDW SD 39.0 fl Normal 35.1-43.9 [facility] Comment on above: Performed By: #### L 501.2300 #### [facility] [address], [address] WBC (Bld) [#/Vol] 5.6 10*3/uL Normal 4.4-11.0 [facility] Comment on above: Performed By: #### L 501.2300 #### [facility] [address] [place], [address] Carbon dioxide, total [Moles /volume] in Central venous bloodOrdered By: Arnaud Borja on 04-02-2025 CO2 [Moles/Vol] 22.5 mmol/L 21.0-32.0 [facility] Chloride assayOrdered By: Jluis Borja on 04-02-2025 Chloride [Moles/Vol] 106 mmol/L 98-108 [facility] Comprehensive Metabolic Prof ilon 04-02-2025 Albumin [Mass/Vol] 4.1 g/dL Normal 3.5-5.0 [facility] Comment on above: Performed By: #### L 501.2300 #### [facility] [address] [place], [address] Albumin/Globulin [Mass ratio] 1.4 {ratio} Normal 0.9-2.4 [facility] Comment on above: Performed By: #### L 501.2300 #### [facility] [address] [place], [address] ALK PHOS 97 U/L Normal 35-104 [facility] Comment on above: Performed By: #### L 501.2300 #### [facility] [address] [place], [address] ALT [Catalytic activity/Vol] 60 U/L High <=34 [facility] Comment on above: Performed By: #### L 501.2300 #### [facility] [address] [place], [address] AST [Catalytic activity/Vol] 49 U/L High <=31 [facility] Comment on above: Performed By: #### L 501.2300 #### [facility] [address] [place], [address] Bilirubin [Mass/Vol] 0.19 mg/dL Normal 0.00-1.30 [facility] Comment on above: Performed By: #### L 501.2300 #### [facility] [address] [place], [address] BUN/CRE 24.2 RATIO High 10-20 [facility] Comment on above: Performed By: #### L 501.2300 #### [facility] [address] [place], [address] Calcium [Mass/Vol] 9.5 mg/dL Normal 7.6-11.0 [facility] Comment on above: Performed By: #### L 501.2300 #### [facility] [address] [place], [address] Chloride [Moles/Vol] 106 mmol/L Normal 98-108 [facility] Comment on above: Performed By: #### L 501.2300 #### [facility] [address] [place], [address] CO2 [Moles/Vol] 22.5 mmol/L Normal 21.0-32.0 [facility] Comment on above: Performed By: #### L 501.2300 #### [facility] [address] [place], [address] Creatinine [Mass/Vol] 0.83 mg/dL Normal 0.70-1.20 [facility] Comment on above: Performed By: #### L 501.2300 #### [facility] [address] [place], [address] ECRCL 77.83 ml/min Normal 50-250 [facility] Comment on above: Performed By: #### L 501.2300 #### [facility] [address] [place], [address] GAP 11 Normal 5-15 [facility] Comment on above: Performed By: #### L 501.2300 #### [facility] [address] [place], [address] GFR/1.73 sq M.predicted among non-blacks MDRD (S/P/Bld) [Vol rate/Area] 89 mL/min/{1.73_m2} Normal >60 [facility] Comment on above: Result Comment: mL/m in/1.73m2 CKD-EPI Creatinine Equation (2020) Performed By: #### L 501.2300 #### [facility] [address] [place], [address] Globulin (S) [Mass/Vol] 2.9 g/dL Normal 2.2-4.2 [facility] Comment on above: Performed By: #### L 501.2300 #### [facility] [address] [place], [address] Glucose [Mass/Vol] 76 mg/dL Normal 70-99 [facility] Comment on above: Performed By: #### L 501.2300 #### [facility] [address] [place], [address] Potassium [Moles/Vol] 4.0 mmol/L Normal 3.3-5.1 [facility] Comment on above: Performed By: #### L 501.2300 #### [facility] [address] [place], [address] Sodium [Moles/Vol] 139 mmol/L Normal 133-145 [facility] Comment on above: Performed By: #### L 501.2300 #### [facility] [address] [place], [place], [id number] T PROT 6.9 g/dL Normal 5.9-8.4 [facility] Comment on above: Performed By: #### L 501.2300 #### [facility] [address] [place], [place], [address] Urea nitrogen [Mass/Vol] 20 mg/dL High 4-19 [facility] Comment on above: Performed By: #### L 501.2300 #### [facility] [address] [place], [place], [id number] Eosinophil percentageOrdered By: Arnaud Borja on 04-02-2025 Eosinophils/100 WBC (Bld) 0.2 % 0-5 [facility] Erythrocyte distribution wid th ratioOrdered By: [facility] on 04-02-2025 Erythrocyte distribution width (RBC) [Ratio] 13.2 % 11.6-14.6 [facility] Erythrocyte distribution wid th standard deviationOrdered By: [facility] on 04-02-2025 Erythrocyte distribution width (RBC) [Ratio] 39.0 fl 35.1-43.9 [facility] Glomerular filtration rate ( GFR) estimation/1.73 sq m using serum, plasma, or whole bOrdered By: Arnaud Borja on 04-02-2025 GFR/1.73 sq M.predicted among non-blacks MDRD (S/P/Bld) [Vol rate/Area] 89 mL/min/{1.73_m2} >60 [facility] Comment on above: mL/min/1.73m2 CKD-EP I Creatinine Equation (2020) Hematocrit Auto (Bld) [Volum e fraction]Ordered By: Arnaud Borja on 04-02-2025 Hematocrit (Bld) [Volume fraction] 24.0 % Low 37-47 [facility] Hemoglobin measurementOrdere d By: Arnaud Borja on 04-02-2025 Hemoglobin (Bld) [Mass/Vol] 8.1 g/dL Low 12.0-15.0 [facility] Immature granulocytes/100 WB C Auto (Bld)Ordered By: Arnaud Borja on 04-02-2025 Immature granulocytes/100 WBC (Bld) 0.200 % 0.0-0.9 [facility] Comment on above: IG% - Immature Granu locytes (promyelocytes, myelocytes and metamyelocytes) > 1% indicates that a LEFT SHIFT is Present. Iron measurement (mass/mass) Ordered By: Arnaud Borja on 04-02-2025 Iron (Unsp spec) [Mass/Mass] 48 ug/dL Low 50-170 [facility] Iron+Iron Binding Capacityon 04-02-2025 Iron [Mass/Vol] 48 ug/dL Low 50-170 [facility] Comment on above: Performed By: #### L 501.2300, L503.6030 ####[facility] [address] [place], [address] IRON SATURATION 17.0 Normal 13-59 [facility] Comment on above: Performed By: #### L 501.2300, L503.6030 ####[facility] [address] [facility] [address] TIBC 277 ug/dL Normal 250-450 [facility] Comment on above: Performed By: #### L 501.2300, L503.6030 ####[facility] [address] [facility] [address] UIBC 229 ug/dL Normal 228-428 [facility] Comment on above: Performed By: #### L 501.2300, L503.6030 ####[facility] [address] [facility] [address] Laboratory - Chemistry and C hemistry - challengeOrdered By: Arnaud Borja on 04-02-2025 AST [Catalytic activity/Vol] 49 U/L High <32 [facility] MCV (mean corpuscular volume ) determinationOrdered By: Arnaud Borja on 04-02-2025 MCV (RBC) [Entitic vol] 85.7 fL 81-99 [facility] Magnesiumon 04-02-2025 Magnesium [Mass/Vol] 1.9 mg/dL Normal 1.5-2.2 [facility] Comment on above: Performed By: #### L 501.2300 #### [facility] [address] [place], [place], [id number] Magnesium measurement (mass/ volume)Ordered By: Arnaud Borja on 04-02-2025 Magnesium (Unsp spec) [Mass/Vol] 1.9 mg/dL 1.5-2.2 [facility] Mean corpuscular hemoglobin (MCH) determinationOrdered By: [facility] Huong on 04-02-2025 MCH (RBC) [Entitic mass] 28.9 pg 27.0-32.0 [facility] Mean corpuscular hemoglobin concentration (MCHC) determinationOrdered By: [facility] Huong on 04-02-2025 MCHC (RBC) [Mass/Vol] 33.8 g/dL 32-36 [facility] Mean platelet volume determi nationOrdered By: [facility] on 04-02-2025 Platelet mean volume (Bld) [Entitic vol] 9.8 fL 6.2-12.0 [facility] Monocyte percentageOrdered B y: [facility] Huong on 04-02-2025 Monocytes/100 WBC (Bld) 9.2 % 0-10 [facility] Neutrophil percentageOrdered By: [facility] Huong on 04-02-2025 Neutrophils/100 WBC (Bld) 61.4 % 47-70 [facility] No Panel InformationOrdered By: [facility] on 04-02-2025 Unsaturated Iron Binding Capacity 229 ug/dL 228-428 [facility] Nucleated red blood cell per centageOrdered By: [facility]ong on 04-02-2025 Nucleated RBC/100 WBC (Bld) [Ratio] 0 % 0-5 [facility] Oncology Visit Reporton Oncology Visit Report [facility] [place] [facility] [address] [place], [place] [address] OFFICE VISIT Date of Service: 04/02/25 0946 MR#: [id number] Acct: [id number] Name: HOWARD HALL Rep #: [id number] [birth year] : 1980 From: Arnaud Borja MD Age/Sex: 44/F Location: [facility] Status: Signed HPI Subjective Date of Service 04/02/25 Chief Complaint Breast cancer on treatment History of Present Illness 44-year-old female menopausal [...] MALIGNANCY. December 10, 2024: A. Left breast, "mass", 9-11 o'clock, 5 CMFN, biopsy: * Invasive [...] in 100% of tumor cells PROGESTERONE RECEPTOR (HI): Positive, strong immunoreactivity in 100% of tumor cells HER2/DIEGO IHC: Positive, (Score 3+) KI67 IHC: 40% B. Left axilla, lymph node, biopsy: * Metastatic mammary carcinoma (See note) Note: The pancytokeratin stain is positive supporting the diagnosis. January 13, 2025 CT chest abdomen and pelvis: IMPRESSION: 1. Known mass in the left breast consistent with carcinoma. 2. There is no evidence of metastatic disease. January 17, 2025 bone scan: IMPRESSION: No evidence of metastatic breast cancer. Echocardiogram: Normal LV size. The left ventricular ejection fraction is 60%. Stage I diastolic dysfunction. The global longitudinal strain is normal. The global longitudinal strain = -16.7% (normal). Treatment summary and response: [facility] February 13, 2025 Interval History February 2025 on antibiotics for an infected tooth, right lower jaw improving with less swelling and (more content not included)... Normal [facility] Phosphoruson 04-02-2025 Phosphate [Mass/Vol] 3.6 mg/dL Normal 2.7-4.5 [facility] Comment on above: Performed By: #### L 501.2300, L503.6030 ####[facility] [address] [place], [address] Phosphate [Mass/Vol] 3.5 mg/dL Normal 2.7-4.5 [facility] Comment on above: Performed By: #### L 501.2300 #### [facility] [address] [place], [address] Platelet countOrdered By: Jluis Borja on 04-02-2025 Platelets (Bld) [#/Vol] 243 10*3/uL 150-450 [facility] Potassium measurement (mass/ volume)Ordered By: Arnaud Borja on 04-02-2025 Potassium (Unsp spec) [Mass/Vol] 4.0 mmol/L 3.3-5.1 [facility] RBC Auto (Bld) [#/Vol]Ordere d By: Arnaud Borja on 04-02-2025 RBC (Bld) [#/Vol] 2.80 10*6/uL Low 4.2-5.4 [facility] Serum creatinine measurement (mass/volume)Ordered By: Arnaud Borja on 04-02-2025 Creatinine [Mass/Vol] 0.83 mg/dL 0.70-1.20 [facility] Serum globulin measurementOr dered By: Arnaud Borja on 04-02-2025 Globulin (S) [Mass/Vol] 2.9 g/dL 2.2-4.2 [facility] Serum glucose measurement (m ass/volume)Ordered By: Arnaud Borja on 04-02-2025 Glucose [Mass/Vol] 76 mg/dL 70-99 [facility] Serum or plasma alanine rainey otransferase (ALT) measurementOrdered By: Arnaud Borja on 04-02-2025 ALT [Catalytic activity/Vol] 60 U/L High <35 [facility] Serum or plasma albumin ceasar urement (mass/volume)Ordered By: Arnaud Borja on 04-02-2025 Albumin [Mass/Vol] 4.1 g/dL 3.5-5.0 [facility] Serum or plasma albumin/glob ulin mass ratioOrdered By: Arnaud Borja on 04-02-2025 Albumin/Globulin [Mass ratio] 1.4 {ratio} 0.9-2.4 [facility] Serum or plasma alkaline dasia sphatase measurementOrdered By: Arnaud Borja on 04-02-2025 ALP [Catalytic activity/Vol] 97 U/L 35-104 [facility] Serum or plasma calcium ceasar urement (mass/volume)Ordered By: Arnaud Borja on 04-02-2025 Calcium [Mass/Vol] 9.5 mg/dL 7.6-11.0 [facility] Serum or plasma iron saturat ion measurement (mass fraction)Ordered By: Arnaud Borja on 04-02-2025 Iron saturation [Mass fraction] 17.0 % 13-59 [facility] Serum or plasma urea nitroge n measurement (mass/volume)Ordered By: Arnaud Borja on 04-02-2025 Urea nitrogen [Mass/Vol] 20 mg/dL High 4-19 [facility] Sodium levelOrdered By: Meir Borja on 04-02-2025 Sodium [Moles/Vol] 139 mmol/L 133-145 [facility] Total proteinOrdered By: Charanjit Borja on 04-02-2025 Protein [Mass/Vol] 6.9 g/dL 5.9-8.4 [facility] White blood cell (WBC) count Ordered By: Arnaud Borja on 04-02-2025 WBC (Bld) [#/Vol] 5.6 10*3/uL 4.4-11.0 [facility] Absolute lymphocyte countOrd ered By: Arnaud Borja on 03-12-2025 Lymphocytes Auto (Unsp spec) [#/Vol] 1.91 10*3/uL 0.83-4.51 [facility] Absolute neutrophil countOrd ered By: Arnaud Borja on 03-12-2025 Neutrophils (Bld) [#/Vol] 3.3 10*3/uL 2.0-7.7 [facility] Anion gap in Serum or Plasma Ordered By: Arnaud Borja on 03-12-2025 Anion gap [Moles/Vol] 12 mmol/L 5- [facility] Automated lymphocyte count a s percentage of total leukocytesOrdered By: [facility] on 03-12-2025 Lymphocytes/100 WBC Auto (Unsp spec) 32.2 % - [facility] BUN/creatinine ratioOrdered By: [facility] on 03-12-2025 Urea nitrogen/Creatinine [Mass ratio] 17.5 mg/mg 10- [facility] Basophil percentageOrdered B y: Arnaud Borja on 03-12-2025 Basophils/100 WBC (Bld) 1.0 % 0-1 [facility] Bilirubin, totalOrdered By: [facility] on 03-12-2025 Bilirubin [Mass/Vol] 0.16 mg/dL 0.00-1.30 [facility] CBC W/Diff, Automatedon 02-28 Absolute Lymph 1.91 X10 3/uL Normal 0.83-4.51 [facility] Comment on above: Performed By: #### L 500.4050, L100.0100 #### [facility] [address] [facility] [place], [address] Absolute Neut 3.3 X10 3/uL Normal 2.0-7.7 [facility] Comment on above: Performed By: #### L 500.4050, L100.0100 #### [facility] [address] [place], [address] Basophils/100 WBC (Bld) 1.0 % Normal 0-1 [facility] Comment on above: Performed By: #### L 500.4050, L100.0100 #### [facility] [address] [place], [address] Eosinophils/100 WBC (Bld) 2.0 % Normal 0-5 [facility] Comment on above: Performed By: #### L 500.4050, L100.0100 #### [facility] [address] [place], [address] Erythrocyte distribution width (RBC) [Ratio] 13.2 % Normal 11.6-14.6 [facility] Comment on above: Performed By: #### L 500.4050, L100.0100 #### [facility] [address] [place], [address] Hematocrit (Bld) [Volume fraction] 30.2 % Low 37-47 [facility] Comment on above: Performed By: #### L 500.4050, L100.0100 #### [facility] [address] [place], [address] Hemoglobin (Bld) [Mass/Vol] 10.1 g/dL Low 12.0-15.0 [facility] Comment on above: Performed By: #### L 500.4050, L100.0100 #### [facility] [address] [place], [address] IG% 0.200 Normal 0.0-0.9 [facility] Comment on above: Result Comment: IG% - Immature Granulocytes (promyelocytes, myelocytes and metamyelocytes) > 1% indicates that a LEFT SHIFT is Present. Performed By: #### L 500.4050, L100.0100 #### [facility] [address] [place], [address] Lymphocytes/100 WBC (Bld) 32.2 % Normal 19-41 [facility] Comment on above: Performed By: #### L 500.4050, L100.0100 #### [facility] [address] [place], [address] MCH (RBC) [Entitic mass] 29.2 pg Normal 27.0-32.0 [facility] Comment on above: Performed By: #### L 500.4050, L100.0100 #### [facility] [address] [place], [address] MCHC (RBC) [Mass/Vol] 33.4 g/dL Normal 32-36 [facility] Comment on above: Performed By: #### L 500.4050, L100.0100 #### [facility] [address] [place], [address] MCV (RBC) [Entitic vol] 87.3 fL Normal 81-99 [facility] Comment on above: Performed By: #### L 500.4050, L100.0100 #### [facility] [address] [place], [address] Monocytes/100 WBC (Bld) 9.8 % Normal 0-10 [facility] Comment on above: Performed By: #### L 500.4050, L100.0100 #### [facility] [address] [place], [address] Neutrophils/100 WBC (Bld) 54.8 % Normal 47-70 [facility] Comment on above: Performed By: #### L 500.4050, L100.0100 #### [facility] [address] [place], [address] Nucleated RBC (Bld) [#/Vol] 0 10*3/uL Normal 0-5 [facility] Comment on above: Performed By: #### L 500.4050, L100.0100 #### [facility] [address] [place], [address] Platelet mean volume (Bld) [Entitic vol] 10.0 fL Normal 6.2-12.0 [facility] Comment on above: Performed By: #### L 500.4050, L100.0100 #### [facility] [address] [place], [address] Platelets (Bld) [#/Vol] 388 10*3/uL Normal 150-450 [facility] Comment on above: Performed By: #### L 500.4050, L100.0100 #### [facility] [address] [place], [address] RBC (Bld) [#/Vol] 3.46 10*6/uL Low 4.2-5.4 [facility] Comment on above: Performed By: #### L 500.4050, L100.0100 #### [facility] [address] [place], [address] RDW SD 41.3 fl Normal 35.1-43.9 [facility] Comment on above: Performed By: #### L 500.4050, L100.0100 #### [facility] [address] [place], [address] WBC (Bld) [#/Vol] 5.9 10*3/uL Normal 4.4-11.0 [facility] Comment on above: Performed By: #### L 500.4050, L100.0100 #### [facility] [address] [place], [address] Carbon dioxide, total [Moles /volume] in Central venous bloodOrdered By: Arnadu Borja on 03-12-2025 CO2 [Moles/Vol] 22.8 mmol/L 21.0-32.0 [facility] Chloride assayOrdered By: Jluis Borja on 03-12-2025 Chloride [Moles/Vol] 106 mmol/L 98-108 [facility] Comprehensive Metabolic Prof ilon 03-12-2025 Albumin [Mass/Vol] 4.1 g/dL Normal 3.5-5.0 [facility] Comment on above: Performed By: #### L 501.2300 #### [facility] [address] [place], [address] Albumin/Globulin [Mass ratio] 1.5 {ratio} Normal 0.9-2.4 [facility] Comment on above: Performed By: #### L 501.2300 #### [facility] [address] [place], [address] ALK PHOS 101 U/L Normal 35-104 [facility] Comment on above: Performed By: #### L 501.2300 #### [facility] [address] [place], [address] ALT [Catalytic activity/Vol] 27 U/L Normal <=34 [facility] Comment on above: Performed By: #### L 501.2300 #### [facility] [address] [place], [address] AST [Catalytic activity/Vol] 27 U/L Normal <=31 [facility] Comment on above: Performed By: #### L 501.2300 #### [facility] [address] [place], [address] Bilirubin [Mass/Vol] 0.16 mg/dL Normal 0.00-1.30 [facility] Comment on above: Performed By: #### L 501.2300 #### [facility] [address] [place], [address] BUN/CRE 17.5 RATIO Normal 10-20 [facility] Comment on above: Performed By: #### L 501.2300 #### [facility] [address] [place], [address] Calcium [Mass/Vol] 9.5 mg/dL Normal 7.6-11.0 [facility] Comment on above: Performed By: #### L 501.2300 #### [facility] [address] [place], [address] Chloride [Moles/Vol] 106 mmol/L Normal 98-108 [facility] Comment on above: Performed By: #### L 501.2300 #### [facility] [address] [place], [address] CO2 [Moles/Vol] 22.8 mmol/L Normal 21.0-32.0 [facility] Comment on above: Performed By: #### L 501.2300 #### [facility] [address] [place], [address] Creatinine [Mass/Vol] 0.86 mg/dL Normal 0.70-1.20 [facility] Comment on above: Performed By: #### L 501.2300 #### [facility] [address] [place], [address] ECRCL 75.12 ml/min Normal 50-250 [facility] Comment on above: Performed By: #### L 501.2300 #### [facility] [address] [place], [address] GAP 12 Normal 5-15 [facility] Comment on above: Performed By: #### L 501.2300 #### [facility] [address] [place], [address] GFR/1.73 sq M.predicted among non-blacks MDRD (S/P/Bld) [Vol rate/Area] 85 mL/min/{1.73_m2} Normal >60 [facility] Comment on above: Result Comment: mL/m in/1.73m2 CKD-EPI Creatinine Equation (2020) Performed By: #### L 501.2300 #### [facility] [address] [place], [address] Globulin (S) [Mass/Vol] 2.8 g/dL Normal 2.2-4.2 [facility] Comment on above: Performed By: #### L 501.2300 #### [facility] [address] [place], [address] Glucose [Mass/Vol] 101 mg/dL High 70-99 [facility] Comment on above: Performed By: #### L 501.2300 #### [facility] [address] [place], [address] Potassium [Moles/Vol] 3.5 mmol/L Normal 3.3-5.1 [facility] Comment on above: Performed By: #### L 501.2300 #### [facility] [address] [place], [address] Sodium [Moles/Vol] 140 mmol/L Normal 133-145 [facility] Comment on above: Performed By: #### L 501.2300 #### [facility] [address] [place], [address] T PROT 6.9 g/dL Normal 5.9-8.4 [facility] Comment on above: Performed By: #### L 501.2300 #### [facility] [address] [place], [address] Urea nitrogen [Mass/Vol] 15 mg/dL Normal 4-19 [facility] Comment on above: Performed By: #### L 501.2300 #### [facility] [address] [place], [address] Eosinophil percentageOrdered By: Arnaud Borja on 03-12-2025 Eosinophils/100 WBC (Bld) 2.0 % 0-5 [facility] Erythrocyte distribution wid th ratioOrdered By: Arnaud Borja on 03-12-2025 Erythrocyte distribution width (RBC) [Ratio] 13.2 % 11.6-14.6 [facility] Erythrocyte distribution wid th standard deviationOrdered By: Arnaud Borja on 03-12-2025 Erythrocyte distribution width (RBC) [Ratio] 41.3 fl 35.1-43.9 [facility] Glomerular filtration rate ( GFR) estimation/1.73 sq m using serum, plasma, or whole bOrdered By: Arnaud Borja on 03-12-2025 GFR/1.73 sq M.predicted among non-blacks MDRD (S/P/Bld) [Vol rate/Area] 85 mL/min/{1.73_m2} >60 [facility] Comment on above: mL/min/1.73m2 CKD-EP I Creatinine Equation (2020) Hematocrit Auto (Bld) [Volum e fraction]Ordered By: Arnaud Borja on 03-12-2025 Hematocrit (Bld) [Volume fraction] 30.2 % Low 37-47 [facility] Hemoglobin measurementOrdere d By: Arnaud Borja on 03-12-2025 Hemoglobin (Bld) [Mass/Vol] 10.1 g/dL Low 12.0-15.0 [facility] Immature granulocytes/100 WB C Auto (Bld)Ordered By: Arnaud Borja on 03-12-2025 Immature granulocytes/100 WBC (Bld) 0.200 % 0.0-0.9 [facility] Comment on above: IG% - Immature Granu locytes (promyelocytes, myelocytes and metamyelocytes) > 1% indicates that a LEFT SHIFT is Present. Laboratory - Chemistry and C hemistry - challengeOrdered By: Arnaud Borja on 03-12-2025 AST [Catalytic activity/Vol] 27 U/L <32 [facility] MCV (mean corpuscular volume ) determinationOrdered By: Arnaud Borja on 03-12-2025 MCV (RBC) [Entitic vol] 87.3 fL 81-99 [facility] Magnesiumon 03-12-2025 Magnesium [Mass/Vol] 2.2 mg/dL Normal 1.5-2.2 [facility] Comment on above: Performed By: #### L 501.2300 #### [facility] [address] [place], [address] Magnesium measurement (mass/ volume)Ordered By: Arnaud Borja on 03-12-2025 Magnesium (Unsp spec) [Mass/Vol] 2.2 mg/dL 1.5-2.2 [facility] Mean corpuscular hemoglobin (MCH) determinationOrdered By: Arnaud Borja on 03-12-2025 MCH (RBC) [Entitic mass] 29.2 pg 27.0-32.0 [facility] Mean corpuscular hemoglobin concentration (MCHC) determinationOrdered By: Arnaud Borja on 03-12-2025 MCHC (RBC) [Mass/Vol] 33.4 g/dL 32-36 [facility] Mean platelet volume determi nationOrdered By: Arnaud Borja on 03-12-2025 Platelet mean volume (Bld) [Entitic vol] 10.0 fL 6.2-12.0 [facility] Monocyte percentageOrdered B y: Arnaud Borja on 03-12-2025 Monocytes/100 WBC (Bld) 9.8 % 0-10 [facility] [facility] Neutrophil percentageOrdered By: Arnaud Borja on 03-12-2025 Neutrophils/100 WBC (Bld) 54.8 % 47-70 [facility] Nucleated red blood cell per centageOrdered By: Arnaud Borja on 03-12-2025 Nucleated RBC/100 WBC (Bld) [Ratio] 0 % 0-5 [facility] Oncology Visit Reporton 02-28 Oncology Visit Report [facility] [address] [place], [place] [address] [address] OFFICE VISIT Date of Service: 03/12/25 0846 MR#: [id number] Acct: [id number] Name: VICKEYHOWARD Rep #: [id number] : 1980 From: Arnaud Borja MD Age/Sex: 44/F Location: [facility] [place] Status: Signed HPI Subjective Date of Service 03/12/25 Chief Complaint Breast cancer on treatment- start [facility] History of Present Illness 44-year-old female menopausal [...] MALIGNANCY. December 10, 2024: A. Left breast, "mass", 9-11 o'clock, 5 CMFN, biopsy: * Invasive [...] in 100% of tumor cells PROGESTERONE RECEPTOR (HI): Positive, strong immunoreactivity in 100% of tumor cells HER2/DIEGO IHC: Positive, (Score 3+) KI67 IHC: 40% B. Left axilla, lymph node, biopsy: * Metastatic mammary carcinoma (See note) Note: The pancytokeratin stain is positive supporting the diagnosis. January 13, 2025 CT chest abdomen and pelvis: IMPRESSION: 1. Known mass in the left breast consistent with carcinoma. 2. There is no evidence of metastatic disease. January 17, 2025 bone scan: IMPRESSION: No evidence of metastatic breast cancer. Echocardiogram: Normal LV size. The left ventricular ejection fraction is 60%. Stage I diastolic dysfunction. The global longitudinal strain is normal. The global longitudinal strain = -16.7% (normal). Treatment summary and response: [facility] February 13, 2025 [facility] Medical History Diarrhea due to drug UTI (uri (more content not included)... Normal [facility] Platelet countOrdered By: Jluis Borja on 03-12-2025 Platelets (Bld) [#/Vol] 388 10*3/uL 150-450 [facility] Potassium measurement (mass/ volume)Ordered By: Arnaud Borja on 03-12-2025 Potassium (Unsp spec) [Mass/Vol] 3.5 mmol/L 3.3-5.1 [facility] RBC Auto (Bld) [#/Vol]Ordere d By: Arnaud Borja on 03-12-2025 RBC (Bld) [#/Vol] 3.46 10*6/uL Low 4.2-5.4 [facility] Serum creatinine measurement (mass/volume)Ordered By: Arnaud Borja on 03-12-2025 Creatinine [Mass/Vol] 0.86 mg/dL 0.70-1.20 [facility] Serum globulin measurementOr dered By: Arnaud Borja on 03-12-2025 Globulin (S) [Mass/Vol] 2.8 g/dL 2.2-4.2 [facility] Serum glucose measurement (m ass/volume)Ordered By: Arnaud Borja on 03-12-2025 Glucose [Mass/Vol] 101 mg/dL High 70-99 [facility] Serum or plasma alanine rainey otransferase (ALT) measurementOrdered By: Arnaud Borja on 03-12-2025 ALT [Catalytic activity/Vol] 27 U/L <35 [facility] Serum or plasma albumin ceasar urement (mass/volume)Ordered By: Arnaud Borja on 03-12-2025 Albumin [Mass/Vol] 4.1 g/dL 3.5-5.0 [facility] Serum or plasma albumin/glob ulin mass ratioOrdered By: Arnaud Borja on 03-12-2025 Albumin/Globulin [Mass ratio] 1.5 {ratio} 0.9-2.4 [facility] Serum or plasma alkaline dasia sphatase measurementOrdered By: Arnaud Borja on 03-12-2025 ALP [Catalytic activity/Vol] 101 U/L 35-104 [facility] Serum or plasma calcium ceasar urement (mass/volume)Ordered By: Arnaud Borja on 03-12-2025 Calcium [Mass/Vol] 9.5 mg/dL 7.6-11.0 [facility] Serum or plasma urea nitroge n measurement (mass/volume)Ordered By: Arnaud Borja on 03-12-2025 Urea nitrogen [Mass/Vol] 15 mg/dL 4-19 [facility] Sodium levelOrdered By: Meir Borja on 03-12-2025 Sodium [Moles/Vol] 140 mmol/L 133-145 [facility] Total proteinOrdered By: Charanjit Borja on 03-12-2025 Protein [Mass/Vol] 6.9 g/dL 5.9-8.4 [facility] White blood cell (WBC) count Ordered By: Arnaud Borja on 03-12-2025 WBC (Bld) [#/Vol] 5.9 10*3/uL 4.4-11.0 [facility] CBC W/Diff, Automatedon 08-0 -2024 Absolute Neut Normal 2.0-7.7 [facility] Comment on above: Result Comment: OM C ANCEL REQUEST Performed By: #### L 500.4050, L100.0100 #### [facility] [address] [place], [address] HCT Normal 37-47 [facility] Comment on above: Result Comment: OM C ANCEL REQUEST Performed By: #### L 500.4050, L100.0100 #### [facility] [address] [place], [address] HGB Normal 12.0-15.0 [facility] Comment on above: Result Comment: OM C ANCEL REQUEST Performed By: #### L 500.4050, L100.0100 #### [facility] [address] [place], [address] MCH Normal 27.0-32.0 [facility] Comment on above: Result Comment: OM C ANCEL REQUEST Performed By: #### L 500.4050, L100.0100 #### [facility] [address] [place], [address] MCHC Normal 32-36 [facility] Comment on above: Result Comment: OM C ANCEL REQUEST Performed By: #### L 500.4050, L100.0100 #### [facility] [address] [place], [address] MCV Normal 81-99 [facility] Comment on above: Result Comment: OM C ANCEL REQUEST Performed By: #### L 500.4050, L100.0100 #### [facility] [address] [place], [address] NEUT% Normal 47-70 [facility] Comment on above: Result Comment: OM C ANCEL REQUEST Performed By: #### L 500.4050, L100.0100 #### [facility] [address] [place], [address] PLT Normal 150-450 [facility] Comment on above: Result Comment: OM C ANCEL REQUEST Performed By: #### L 500.4050, L100.0100 #### [facility] [address] [place], [address] RBC Normal 4.2-5.4 [facility] Comment on above: Result Comment: OM C ANCEL REQUEST Performed By: #### L 500.4050, L100.0100 #### [facility] [address] [place], [address] RDW CV Normal 11.6-14.6 [facility] Comment on above: Result Comment: OM C ANCEL REQUEST Performed By: #### L 500.4050, L100.0100 #### [facility] [address] [place], [address] RDW SD Normal 35.1-43.9 [facility] Comment on above: Result Comment: OM C ANCEL REQUEST Performed By: #### L 500.4050, L100.0100 #### [facility] [address] [place], [address] WBC Normal 4.4-11.0 [facility] Comment on above: Result Comment: OM C ANCEL REQUEST Performed By: #### L 500.4050, L100.0100 #### [facility] [address] [place], [address] Comprehensive Metabolic Prof ilon 03-06-2025 ALB Normal 3.5-5.0 [facility] Comment on above: Result Comment: OM C ANCEL REQUEST Performed By: #### L 500.4050, L100.0100 #### [facility] [address] [place], [address] ALK PHOS Normal 35-104 [facility] Comment on above: Result Comment: OM C ANCEL REQUEST Performed By: #### L 500.4050, L100.0100 #### [facility] [address] [place], [address] ALT Normal <=34 [facility] Comment on above: Result Comment: OM C ANCEL REQUEST Performed By: #### L 500.4050, L100.0100 #### [facility] [address] [place], [address] AST Normal <=31 [facility] Comment on above: Result Comment: OM C ANCEL REQUEST Performed By: #### L 500.4050, L100.0100 #### [facility] [address] [place], [address] BUN Normal 4-19 [facility] Comment on above: Result Comment: OM C ANCEL REQUEST Performed By: #### L 500.4050, L100.0100 #### [facility] [address] [place], [address] BUN/CRE Normal 10-20 [facility] Comment on above: Result Comment: OM C ANCEL REQUEST Performed By: #### L 500.4050, L100.0100 #### [facility] [address] [place], [address] Calcium Normal 7.6-11.0 [facility] Comment on above: Result Comment: OM C ANCEL REQUEST Performed By: #### L 500.4050, L100.0100 #### [facility] [address] [place], [address] CL Normal 98-108 [facility] Comment on above: Result Comment: OM C ANCEL REQUEST Performed By: #### L 500.4050, L100.0100 #### [facility] [address] [place], [address] CO2 Normal 21.0-32.0 [facility] Comment on above: Result Comment: OM C ANCEL REQUEST Performed By: #### L 500.4050, L100.0100 #### [facility] [address] [place], [address] CREAT,SERUM Normal 0.70-1.20 [facility] Comment on above: Result Comment: OM C ANCEL REQUEST Performed By: #### L 500.4050, L100.0100 #### [facility] [address] [place], [address] eGFR Normal >60 [facility] Comment on above: Result Comment: OM C ANCEL REQUEST Performed By: #### L 500.4050, L100.0100 #### [facility] [address] [place], [address] GAP Normal 5-15 [facility] Comment on above: Result Comment: OM C ANCEL REQUEST Performed By: #### L 500.4050, L100.0100 #### [facility] [address] [place], [address] GLU Normal 70-99 [facility] Comment on above: Result Comment: OM C ANCEL REQUEST Performed By: #### L 500.4050, L100.0100 #### [facility] [address] [place], [address] Potassium Normal 3.3-5.1 [facility] Comment on above: Result Comment: OM C ANCEL REQUEST Performed By: #### L 500.4050, L100.0100 #### [facility] [address] [place], [address] T BILI Normal 0.00-1.30 [facility] Comment on above: Result Comment: OM C ANCEL REQUEST Performed By: #### L 500.4050, L100.0100 #### [facility] [address] [place], [address] T PROT Normal 5.9-8.4 [facility] Comment on above: Result Comment: OM C ANCEL REQUEST Performed By: #### L 500.4050, L100.0100 #### [facility] [address] [place], [address] Comprehensive Metabolic Profil Normal 133-145 [facility] Comment on above: Result Comment: OM C ANCEL REQUEST Performed By: #### L 500.4050, L100.0100 #### [facility] [address] [place], [address] Absolute lymphocyte countOrd ered By: Arnaud Borja on 02-20-2025 Lymphocytes Auto (Unsp spec) [#/Vol] 1.96 10*3/uL 0.83-4.51 [facility] Absolute neutrophil countOrd ered By: Arnaud Borja on 02-20-2025 Neutrophils (Bld) [#/Vol] 3.0 10*3/uL 2.0-7.7 [facility] Anion gap in Serum or Plasma Ordered By: Arnaud Borja on 02-20-2025 Anion gap [Moles/Vol] 13 mmol/L 5- [facility] Automated lymphocyte count a s percentage of total leukocytesOrdered By: Arnaud Borja on 02-20-2025 Lymphocytes/100 WBC Auto (Unsp spec) 31.2 % 19-41 [facility] BUN/creatinine ratioOrdered By: Arnaud Borja on 02-20-2025 Urea nitrogen/Creatinine [Mass ratio] 15.4 mg/mg 10- [facility] Basic Metabolic Profile (BMP )on 02-20-2025 BUN/CRE 15.4 RATIO Normal - [facility] Comment on above: Performed By: #### L 500.2500, L501.5200, L100.0100 #### [facility] [address] [place], [address] ECRCL 81.77 ml/min Normal 50-250 [facility] Comment on above: Performed By: #### L 500.2500, L501.5200, L100.0100 #### [facility] [address] [place], [address] GAP 13 Normal 5-15 [facility] Comment on above: Performed By: #### L 500.2500, L501.5200, L100.0100 #### [facility] [address] [place], [address] Potassium [Moles/Vol] 3.6 mmol/L Normal 3.3-5.1 [facility] Comment on above: Performed By: #### L 500.2500, L501.5200, L100.0100 #### [facility] [address] [place], [address] Basophil percentageOrdered B y: Arnaud Borja on 02-20-2025 Basophils/100 WBC (Bld) 0.3 % 0-1 [facility] Bilirubin Test strip Ql (U)O rdered By: Kelsey Holland on 02-20-2025 Bilirubin Ql (U) 1 mg/dL High Negative [facility] Comment on above: COLOR OF URINE MAY A FFECT DIPSTICK RESULTS. Blood manual differential co mment interpretation (narrative result)Ordered By: Arnadu Borja on 02-20-2025 Manual differential comment Miguel Angel (Bld) [Interp] SCANNED [facility] CBC W/Diff, Automatedon 01-29 PLT EST SLT DEC Normal ADEQ [facility] Comment on above: Performed By: #### L 500.2500, L501.5200, L100.0100 #### [facility] [address] [place], [address] Platelet mean volume (Bld) [Entitic vol] 11.4 fL Normal 6.2-12.0 [facility] Comment on above: Performed By: #### L 500.2500, L501.5200, L100.0100 #### [facility] [address] [place], [address] SMEAR COMMENT SCANNED Normal [facility] Comment on above: Performed By: #### L 500.2500, L501.5200, L100.0100 #### [facility] [address] [place], [address] Platelets (Bld) [#/Vol] 141 10*3/uL Low 150-450 [facility] Comment on above: Performed By: #### L 500.2500, L501.5200, L100.0100 #### [facility] [address] [place], [address] WBC (Bld) [#/Vol] 6.3 10*3/uL Normal 4.4-11.0 [facility] Comment on above: Performed By: #### L 500.2500, L501.5200, L100.0100 #### [facility] [address] [place], [address] Carbon dioxide, total [Moles /volume] in Central venous bloodOrdered By: Arnaud Borja on 02-20-2025 CO2 [Moles/Vol] 22.9 mmol/L Normal 21.0-32.0 [facility] Comment on above: Performed By: #### L 500.2500, L501.5200, L100.0100 #### [facility] [address] [place], [address] Chloride assayOrdered By: Jluis Borja on 02-20-2025 Chloride [Moles/Vol] 100 mmol/L Normal 98-108 [facility] Comment on above: Performed By: #### L 500.2500, L501.5200, L100.0100 #### [facility] [address] [place], [address] Eosinophil percentageOrdered By: Arnaud Borja on 02-20-2025 Eosinophils/100 WBC (Bld) 0.3 % 0-5 [facility] Erythrocyte distribution wid th ratioOrdered By: Arnaud Borja on 02-20-2025 Erythrocyte distribution width (RBC) [Ratio] 11.9 % 11.6-14.6 [facility] Erythrocyte distribution wid th standard deviationOrdered By: Arnaud Borja on 02-20-2025 Erythrocyte distribution width (RBC) [Ratio] 36.2 fl 35.1-43.9 [facility] Glomerular filtration rate ( GFR) estimation/1.73 sq m using serum, plasma, or whole bOrdered By: Arnaud Borja on 02-20-2025 GFR/1.73 sq M.predicted among non-blacks MDRD (S/P/Bld) [Vol rate/Area] 95 mL/min/{1.73_m2} Normal >60 [facility] Comment on above: mL/min/1.73m2 CKD-EP I Creatinine Equation (2020) Result Comment: mL/m in/1.73m2 CKD-EPI Creatinine Equation (2020) Performed By: #### L 500.2500, L501.5200, L100.0100 #### [facility] [address], [place], [id number] Hematocrit Auto (Bld) [Volum e fraction]Ordered By: Arnaud Borja on 02-20-2025 Hematocrit (Bld) [Volume fraction] 37.4 % 37-47 [facility] Hemoglobin measurementOrdere d By: Arnaud Borja on 02-20-2025 Hemoglobin (Bld) [Mass/Vol] 12.5 g/dL 12.0-15.0 [facility] Hyaline casts LM.LPF (Urine sed) [#/Area]Ordered By: Kelsey Holland on 02-20-2025 Hyaline casts (Urine sed) [#/Area] 0 /[LPF] 0-5 [facility] Immature granulocytes/100 WB C Auto (Bld)Ordered By: Arnaud Borja on 02-20-2025 Immature granulocytes/100 WBC (Bld) 1.400 % High 0.0-0.9 [facility] Comment on above: IG% - Immature Granu locytes (promyelocytes, myelocytes and metamyelocytes) > 1% indicates that a LEFT SHIFT is Present. Ketones Test strip Ql (U)Ord ered By: Kelsey Holland on 02-20-2025 Ketones Ql (U) Negative Negative [facility] MCV (mean corpuscular volume ) determinationOrdered By: Arnaud Borja on 02-20-2025 MCV (RBC) [Entitic vol] 84.2 fL 81-99 [facility] Magnesiumon 02-20-2025 Magnesium [Mass/Vol] 1.9 mg/dL Normal 1.5-2.2 [facility] Comment on above: Performed By: #### L 500.2500, L501.5200, L100.0100 #### [facility] [address] [place], [address] Magnesium measurement (mass/ volume)Ordered By: Arnaud Borja on 02-20-2025 Magnesium (Unsp spec) [Mass/Vol] 1.9 mg/dL 1.5-2.2 [facility] Mean corpuscular hemoglobin (MCH) determinationOrdered By: Arnaud Borja on 02-20-2025 MCH (RBC) [Entitic mass] 28.2 pg 27.0-32.0 [facility] Mean corpuscular hemoglobin concentration (MCHC) determinationOrdered By: Arnaud Borja on 02-20-2025 MCHC (RBC) [Mass/Vol] 33.4 g/dL 32-36 [facility] Microscopic analysis of urin e for red blood cells (RBC)Ordered By: Kelsey Holland on 02-20-2025 Microscopic analysis of urine for red blood cells (RBC) 0-5 SEEN /hpf 0-5 [facility] Monocyte percentageOrdered B y: Arnaud Borja on 02-20-2025 Monocytes/100 WBC (Bld) 18.8 % High 0-10 [facility] Mucus LM Ql (Urine sed)Order ed By: Kelsey Holland on 02-20-2025 Mucus Ql (Urine sed) 0 SEEN /hpf [facility] Neutrophil percentageOrdered By: Arnaud Borja on 02-20-2025 Neutrophils/100 WBC (Bld) 48.0 % 47-70 [facility] Nitrite Test strip Ql (U)Ord ered By: Kelsey Holland on 02-20-2025 Nitrite Ql (U) Positive High Negative [facility] Nucleated red blood cell per centageOrdered By: Arnaud Borja on 02-20-2025 Nucleated RBC/100 WBC (Bld) [Ratio] 0 % 0-5 [facility] Oncology Visit Reporton 01-29 Oncology Visit Report [facility] [address] [place] [address] OFFICE VISIT Date of Service: 02/20/25 1505 MR#: [id number] Acct: [id number] Name: HOWARD HALL Rep #: [id number] : 1980 From: Kelsey Holland NP [employer] PatyC Age/Sex: 44/F Location: [facility] Status: Signed HPI Subjective Date of Service 02/20/25 Chief Complaint Breast cancer on treatment- start [facility] History of Present Illness 44-year-old female menopausal [...] MALIGNANCY. December 10, 2024: A. Left breast, "mass", 9-11 o'clock, 5 CMFN, biopsy: * Invasive [...] in 100% of tumor cells PROGESTERONE RECEPTOR (HI): Positive, strong immunoreactivity in 100% of tumor cells HER2/DIEGO IHC: Positive, (Score 3+) KI67 IHC: 40% B. Left axilla, lymph node, biopsy: * Metastatic mammary carcinoma (See note) Note: The pancytokeratin stain is positive supporting the diagnosis. January 13, 2025 CT chest abdomen and pelvis: IMPRESSION: 1. Known mass in the left breast consistent with carcinoma. 2. There is no evidence of metastatic disease. January 17, 2025 bone scan: IMPRESSION: No evidence of metastatic breast cancer. Echocardiogram: Normal LV size. The left ventricular ejection fraction is 60%. Stage I diastolic dysfunction. The global longitudinal strain is normal. The global longitudinal strain = -16.7% (normal). Treatment summary and response: [facility] to February 13, 2025 Interval History The patient is presenting to clinic accompanied by friend for a planned follow u (more content not included)... Normal [facility] Platelet estimateOrdered By: Arnaud Borja on 02-20-2025 Platelets LM Ql (Bld) SLT DEC ADEQ [facility] Potassium measurement (mass/ volume)Ordered By: Arnaud Borja on 02-20-2025 Potassium (Unsp spec) [Mass/Vol] 3.6 mmol/L 3.3-5.1 [facility] Protein Test strip Ql (U)Ord ered By: Kelsey Holland on 02-20-2025 Protein Ql (U) 30 mg/dl High Negative [facility] RBC Auto (Bld) [#/Vol]Ordere d By: Arnaud Borja on 02-20-2025 RBC (Bld) [#/Vol] 4.44 10*6/uL 4.2-5.4 [facility] Serum creatinine measurement (mass/volume)Ordered By: Arnaud Borja on 02-20-2025 Creatinine [Mass/Vol] 0.79 mg/dL Normal 0.70-1.20 [facility] Comment on above: Performed By: #### L 500.2500, L501.5200, L100.0100 #### [facility] [address] [place], [place], [address] Serum glucose measurement (m ass/volume)Ordered By: Arnaud Borja on 02-20-2025 Glucose [Mass/Vol] 131 mg/dL High 70-99 [facility] Comment on above: Performed By: #### L 500.2500, L501.5200, L100.0100 #### [facility] [address] [place], [address] Serum or plasma calcium ceasar urement (mass/volume)Ordered By: Arnaud Huong on 02-20-2025 Calcium [Mass/Vol] 9.6 mg/dL Normal 7.6-11.0 [facility] Comment on above: Performed By: #### L 500.2500, L501.5200, L100.0100 #### [facility] [address] [place], [address] Serum or plasma urea nitroge n measurement (mass/volume)Ordered By: Meirwes Borja on 02-20-2025 Urea nitrogen [Mass/Vol] 12 mg/dL Normal 4-19 [facility] Comment on above: Performed By: #### L 500.2500, L501.5200, L100.0100 #### [facility] [address] [place], [address] Sodium levelOrdered By: Meir Crummusa on 02-20-2025 Sodium [Moles/Vol] 137 mmol/L Normal 133-145 [facility] Comment on above: Performed By: #### L 500.2500, L501.5200, L100.0100 #### [facility] [address] [place], [address] Squamous epithelial cells de tection in urine sediment by light microscopyOrdered By: Kelsey Holland on 02-20-2025 Epithelial cells.squamous LM Ql (Urine sed) 5-10 SEEN /hpf 5-10 [facility] Urinalysis, Completeon 02-20 CAST,HYALINE 0-5 SEEN Normal 0-5 [facility] Comment on above: Order Comment: COLLE CTOR TO SPECIFY Performed By: #### L 500.2500, L501.5200, L100.0100 #### [facility] [address] [place], [address] EPI,SQUAMOUS 5-10 SEEN Normal 5-10 [facility] Comment on above: Order Comment: BENNIE CTOR TO SPECIFY Performed By: #### L 500.2500, L501.5200, L100.0100 #### [facility] [address] [place], [address] RBC 0-5 SEEN Normal 0-5 [facility] Comment on above: Order Comment: COLLE CTOR TO SPECIFY Performed By: #### L 500.2500, L501.5200, L100.0100 #### [facility] [address] [place], [address] WBC 10-25 SEEN Normal 0-5 [facility] Comment on above: Order Comment: BENNIE CTOR TO SPECIFY Performed By: #### L 500.2500, L501.5200, L100.0100 #### [facility] [address] [place], [address] BACTERIA 3+ /hpf Normal None Seen [facility] Comment on above: Order Comment: BENNIE CTOR TO SPECIFY Performed By: #### L 500.2500, L501.5200, L100.0100 #### [facility] [address] [place], [address] Mucus Ql (Urine sed) 0 SEEN Normal [facility] Comment on above: Order Comment: BENNIE CTOR TO SPECIFY Performed By: #### L 500.2500, L501.5200, L100.0100 #### [facility] [address] [place], [address] Urine clarityOrdered By: Ad Holland on 02-20-2025 Clarity (U) Sl. Cloudy Clear [facility] Urine color determinationOrd ered By: Kelsey Holland on 02-20-2025 Color (U) Straw Yellow [facility] Urine glucose detectionOrder ed By: Kelsey Holland on 02-20-2025 Glucose Ql (U) Normal mg/dl Normal [facility] Urine leukocyte esterase det ection by dipstickOrdered By: Kelsey Holland on 02-20-2025 Leukocyte esterase Test strip Ql (U) 25 /ul High Negative [facility] Urine pHOrdered By: Kelsey vanegas on 02-20-2025 pH (U) 6.0 [pH] 5.0 - 8.0 [facility] Urine sediment bacteria coun t by microscopy (number/high power field)Ordered By: Kelsey Holland on 02-20-2025 Bacteria LM.HPF (Urine sed) [#/Area] 3 /[HPF] None Seen [facility] Urine specific gravity measu rementOrdered By: Kelsey Holland on 02-20-2025 Specific gravity (U) [Rel density] 1.015 1.002-1.030 [facility] Urine urobilinogen measureme ntOrdered By: Kelsey Holland on 02-20-2025 Urobilinogen Ql (U) Normal mg/dl Normal [facility] White blood cell countOrdere d By: Kelsey Holland on 02-20-2025 White blood cell count 10-25 SEEN /hpf 0-5 [facility] Absolute lymphocyte countOrd ered By: Arnaud Borja on 02-13-2025 Lymphocytes Auto (Unsp spec) [#/Vol] 0.98 10*3/uL 0.83-4.51 [facility] Absolute neutrophil countOrd ered By: Arnaud Borja on 02-13-2025 Neutrophils (Bld) [#/Vol] 4.4 10*3/uL 2.0-7.7 [facility] Anion gap in Serum or Plasma Ordered By: Arnaud Borja on 02-13-2025 Anion gap [Moles/Vol] 11 mmol/L 5-15 [facility] Automated lymphocyte count a s percentage of total leukocytesOrdered By: Arnaud Borja on 02-13-2025 Lymphocytes/100 WBC Auto (Unsp spec) 17.5 % Low 19-41 [facility] BUN/creatinine ratioOrdered By: Arnaud Borja on 02-13-2025 Urea nitrogen/Creatinine [Mass ratio] 16.1 mg/mg 10-20 [facility] Basophil percentageOrdered B y: Arnaud Borja on 02-13-2025 Basophils/100 WBC (Bld) 0.7 % 0-1 [facility] Bilirubin, totalOrdered By: Arnaud Borja on 02-13-2025 Bilirubin [Mass/Vol] 0.15 mg/dL 0.00-1.30 [facility] CBC W/Diff, Automatedon 01-28 Absolute Lymph 0.98 X10 3/uL Normal 0.83-4.51 [facility] Comment on above: Performed By: #### L 500.4050, L100.0100 #### [facility] [address] [place], [address] Absolute Neut 4.4 X10 3/uL Normal 2.0-7.7 [facility] Comment on above: Performed By: #### L 500.4050, L100.0100 #### [facility] [address] [place], [address] Basophils/100 WBC (Bld) 0.7 % Normal 0-1 [facility] Comment on above: Performed By: #### L 500.4050, L100.0100 #### [facility] [address] [place], [address] Eosinophils/100 WBC (Bld) 1.2 % Normal 0-5 [facility] Comment on above: Performed By: #### L 500.4050, L100.0100 #### [facility] [address] [place], [address] Erythrocyte distribution width (RBC) [Ratio] 12.0 % Normal 11.6-14.6 [facility] Comment on above: Performed By: #### L 500.4050, L100.0100 #### [facility] [address] [place], [address] Hematocrit (Bld) [Volume fraction] 37.1 % Normal 37-47 [facility] Comment on above: Performed By: #### L 500.4050, L100.0100 #### [facility] [address] [place], [address] Hemoglobin (Bld) [Mass/Vol] 12.3 g/dL Normal 12.0-15.0 [facility] Comment on above: Performed By: #### L 500.4050, L100.0100 #### [facility] [address] [place], [address] IG% 0.400 Normal 0.0-0.9 [facility] Comment on above: Result Comment: IG% - Immature Granulocytes (promyelocytes, myelocytes and metamyelocytes) > 1% indicates that a LEFT SHIFT is Present. Performed By: #### L 500.4050, L100.0100 #### [facility] [address] [place], [address] Lymphocytes/100 WBC (Bld) 17.5 % Low 19-41 [facility] Comment on above: Performed By: #### L 500.4050, L100.0100 #### [facility] [address] [place], [address] MCH (RBC) [Entitic mass] 28.5 pg Normal 27.0-32.0 [facility] Comment on above: Performed By: #### L 500.4050, L100.0100 #### [facility] [address] [place], [address] MCHC (RBC) [Mass/Vol] 33.2 g/dL Normal 32-36 [facility] Comment on above: Performed By: #### L 500.4050, L100.0100 #### [facility] [address] [place], [address] MCV (RBC) [Entitic vol] 85.9 fL Normal 81-99 [facility] Comment on above: Performed By: #### L 500.4050, L100.0100 #### [facility] [address] [place], [address] Monocytes/100 WBC (Bld) 1.8 % Normal 0-10 [facility] Comment on above: Performed By: #### L 500.4050, L100.0100 #### [facility] [address] [place], [address] Neutrophils/100 WBC (Bld) 78.4 % High 47-70 [facility] Comment on above: Performed By: #### L 500.4050, L100.0100 #### [facility] [address] [place], [address] Nucleated RBC (Bld) [#/Vol] 0 10*3/uL Normal 0-5 [facility] Comment on above: Performed By: #### L 500.4050, L100.0100 #### [facility] [address] [place], [address] Platelet mean volume (Bld) [Entitic vol] 10.8 fL Normal 6.2-12.0 [facility] Comment on above: Performed By: #### L 500.4050, L100.0100 #### [facility] [address] [place], [address] Platelets (Bld) [#/Vol] 236 10*3/uL Normal 150-450 [facility] Comment on above: Performed By: #### L 500.4050, L100.0100 #### [facility] [address] [place], [address] RBC (Bld) [#/Vol] 4.32 10*6/uL Normal 4.2-5.4 [facility] Comment on above: Performed By: #### L 500.4050, L100.0100 #### [facility] [address] [place], [address] RDW SD 38.0 fl Normal 35.1-43.9 [facility] Comment on above: Performed By: #### L 500.4050, L100.0100 #### [facility] [address] [place], [address] WBC (Bld) [#/Vol] 5.6 10*3/uL Normal 4.4-11.0 [facility] Comment on above: Performed By: #### L 500.4050, L100.0100 #### [facility] [address] [place], [address] Carbon dioxide, total [Moles /volume] in Central venous bloodOrdered By: Arnaud Borja on 02-13-2025 CO2 [Moles/Vol] 23.9 mmol/L 21.0-32.0 [facility] Chloride assayOrdered By: Jluis Borja on 02-13-2025 Chloride [Moles/Vol] 105 mmol/L 98-108 [facility] Comprehensive Metabolic Prof ilon 02-13-2025 Albumin [Mass/Vol] 4.4 g/dL Normal 3.5-5.0 [facility] Comment on above: Performed By: #### L 500.4050, L100.0100 #### [facility] [address] [place], [address] Albumin/Globulin [Mass ratio] 1.4 {ratio} Normal 0.9-2.4 [facility] Comment on above: Performed By: #### L 500.4050, L100.0100 #### [facility] [address] [place], [address] ALK PHOS 103 U/L Normal 35-104 [facility] Comment on above: Performed By: #### L 500.4050, L100.0100 #### [facility] [address] [place], [address] ALT [Catalytic activity/Vol] 20 U/L Normal <=34 [facility] Comment on above: Performed By: #### L 500.4050, L100.0100 #### [facility] [address] [place], [address] AST [Catalytic activity/Vol] 23 U/L Normal <=31 [facility] Comment on above: Performed By: #### L 500.4050, L100.0100 #### [facility] [address] [place], [address] Bilirubin [Mass/Vol] 0.15 mg/dL Normal 0.00-1.30 [facility] Comment on above: Performed By: #### L 500.4050, L100.0100 #### [facility] [address] [place], [address] BUN/CRE 16.1 RATIO Normal 10-20 [facility] Comment on above: Performed By: #### L 500.4050, L100.0100 #### [facility] [address] [place], [address] Calcium [Mass/Vol] 9.5 mg/dL Normal 7.6-11.0 [facility] Comment on above: Performed By: #### L 500.4050, L100.0100 #### [facility] [address] [place], [address] Chloride [Moles/Vol] 105 mmol/L Normal 98-108 [facility] Comment on above: Performed By: #### L 500.4050, L100.0100 #### [facility] [address] [place], [address] CO2 [Moles/Vol] 23.9 mmol/L Normal 21.0-32.0 [facility] Comment on above: Performed By: #### L 500.4050, L100.0100 #### [facility] [address] [place], [address] Creatinine [Mass/Vol] 0.79 mg/dL Normal 0.70-1.20 [facility] Comment on above: Performed By: #### L 500.4050, L100.0100 #### [facility] [address] [place], [address] ECRCL 81.77 ml/min Normal 50-250 [facility] Comment on above: Performed By: #### L 500.4050, L100.0100 #### [facility] [address] [place], [address] GAP 11 Normal 5-15 [facility] Comment on above: Performed By: #### L 500.4050, L100.0100 #### [facility] [address] [place], [address] GFR/1.73 sq M.predicted among non-blacks MDRD (S/P/Bld) [Vol rate/Area] 94 mL/min/{1.73_m2} Normal >60 [facility] Comment on above: Result Comment: mL/m in/1.73m2 CKD-EPI Creatinine Equation (2020) Performed By: #### L 500.4050, L100.0100 #### [facility] [address] [place], [address] Globulin (S) [Mass/Vol] 3.1 g/dL Normal 2.2-4.2 [facility] Comment on above: Performed By: #### L 500.4050, L100.0100 #### [facility] [address] [place], [address] Glucose [Mass/Vol] 134 mg/dL High 70-99 [facility] Comment on above: Performed By: #### L 500.4050, L100.0100 #### [facility] [address] [place], [address] Potassium [Moles/Vol] 3.9 mmol/L Normal 3.3-5.1 [facility] Comment on above: Performed By: #### L 500.4050, L100.0100 #### [facility] [address] [place], [address] Sodium [Moles/Vol] 140 mmol/L Normal 133-145 [facility] Comment on above: Performed By: #### L 500.4050, L100.0100 #### [facility] [address] [place], [address] T PROT 7.5 g/dL Normal 5.9-8.4 [facility] Comment on above: Performed By: #### L 500.4050, L100.0100 #### [facility] [address] [place], [address] Urea nitrogen [Mass/Vol] 13 mg/dL Normal 4-19 [facility] Comment on above: Performed By: #### L 500.4050, L100.0100 #### [facility] [address] [place], [address] Eosinophil percentageOrdered By: Arnaud Borja on 02-13-2025 Eosinophils/100 WBC (Bld) 1.2 % 0-5 [facility] Erythrocyte distribution wid th ratioOrdered By: [facility] on 02-13-2025 Erythrocyte distribution width (RBC) [Ratio] 12.0 % 11.6-14.6 [facility] Erythrocyte distribution wid th standard deviationOrdered By: [facility] on 02-13-2025 Erythrocyte distribution width (RBC) [Ratio] 38.0 fl 35.1-43.9 [facility] Glomerular filtration rate ( GFR) estimation/1.73 sq m using serum, plasma, or whole bOrdered By: Arnaud Borja on 02-13-2025 GFR/1.73 sq M.predicted among non-blacks MDRD (S/P/Bld) [Vol rate/Area] 94 mL/min/{1.73_m2} >60 [facility] Comment on above: mL/min/1.73m2 CKD-EP I Creatinine Equation (2020) Hematocrit Auto (Bld) [Volum e fraction]Ordered By: Arnaud Borja on 02-13-2025 Hematocrit (Bld) [Volume fraction] 37.1 % 37-47 [facility] Hemoglobin measurementOrdere d By: Arnaud Borja on 02-13-2025 Hemoglobin (Bld) [Mass/Vol] 12.3 g/dL 12.0-15.0 [facility] Immature granulocytes/100 WB C Auto (Bld)Ordered By: Arnaud Borja on 02-13-2025 Immature granulocytes/100 WBC (Bld) 0.400 % 0.0-0.9 [facility] Comment on above: IG% - Immature Granu locytes (promyelocytes, myelocytes and metamyelocytes) > 1% indicates that a LEFT SHIFT is Present. Laboratory - Chemistry and C hemistry - challengeOrdered By: Arnaud Borja on 02-13-2025 AST [Catalytic activity/Vol] 23 U/L <32 [facility] MCV (mean corpuscular volume ) determinationOrdered By: Arnaud Borja on 02-13-2025 MCV (RBC) [Entitic vol] 85.9 fL 81-99 [facility] Magnesiumon 02-13-2025 Magnesium [Mass/Vol] 2.3 mg/dL High 1.5-2.2 [facility] Comment on above: Performed By: #### L 500.4050, L100.0100 #### [facility] [address] [place] [address], [address] Magnesium measurement (mass/ volume)Ordered By: Arnaud Borja on 02-13-2025 Magnesium (Unsp spec) [Mass/Vol] 2.3 mg/dL High 1.5-2.2 [facility] Mean corpuscular hemoglobin (MCH) determinationOrdered By: Arnaud Borja on 02-13-2025 MCH (RBC) [Entitic mass] 28.5 pg 27.0-32.0 [facility] Mean corpuscular hemoglobin concentration (MCHC) determinationOrdered By: Arnaud Borja on 02-13-2025 MCHC (RBC) [Mass/Vol] 33.2 g/dL 32-36 [facility] Mean platelet volume determi nationOrdered By: Arnaud Borja on 02-13-2025 Platelet mean volume (Bld) [Entitic vol] 10.8 fL 6.2-12.0 [facility] Monocyte percentageOrdered B y: Arnaud Borja on 02-13-2025 Monocytes/100 WBC (Bld) 1.8 % 0-10 [facility] Neutrophil percentageOrdered By: [facility] on 02-13-2025 Neutrophils/100 WBC (Bld) 78.4 % High 47-70 [facility] Nucleated red blood cell per centageOrdered By: [facility] on 02-13-2025 Nucleated RBC/100 WBC (Bld) [Ratio] 0 % 0-5 [facility] Oncology Visit Reporton 01-28 Oncology Visit Report [facility] [place] [facility] [address] [place] [address] OFFICE VISIT Date of Service: 02/13/25 0830 MR#: [id number] Acct: [id number] Name: HOWARD HALL Falguni Rep #: [id number] : 1980 From: Kelsey Holland NP [employer] -C Age/Sex: 44/F Location: [facility] Status: Signed HPI Subjective Date of Service 02/13/25 Chief Complaint Breast cancer on treatment- start [facility] History of Present Illness 44-year-old female menopausal [...] MALIGNANCY. December 10, 2024: A. Left breast, "mass", 9-11 o'clock, 5 CMFN, biopsy: * Invasive [...] in 100% of tumor cells PROGESTERONE RECEPTOR (HI): Positive, strong immunoreactivity in 100% of tumor cells HER2/DIEGO IHC: Positive, (Score 3+) KI67 IHC: 40% B. Left axilla, lymph node, biopsy: * Metastatic mammary carcinoma (See note) Note: The pancytokeratin stain is positive supporting the diagnosis. January 13, 2025 CT chest abdomen and pelvis: IMPRESSION: 1. Known mass in the left breast consistent with carcinoma. 2. There is no evidence of metastatic disease. January 17, 2025 bone scan: IMPRESSION: No evidence of metastatic breast cancer. Echocardiogram: Normal LV size. The left ventricular ejection fraction is 60%. Stage I diastolic dysfunction. The global longitudinal strain is normal. The global longitudinal strain = -16.7% (normal). Treatment summary and response: TCHP to February 13, 2025 Interval History The patient is presenting to clinic accompanied by son for an evaluation anticip (more content not included)... Normal [facility] Platelet countOrdered By: Jluis Borja on 02-13-2025 Platelets (Bld) [#/Vol] 236 10*3/uL 150-450 [facility] Potassium measurement (mass/ volume)Ordered By: Arnaud Borja on 02-13-2025 Potassium (Unsp spec) [Mass/Vol] 3.9 mmol/L 3.3-5.1 [facility] RBC Auto (Bld) [#/Vol]Ordere d By: Arnaud Borja on 02-13-2025 RBC (Bld) [#/Vol] 4.32 10*6/uL 4.2-5.4 [facility] Serum creatinine measurement (mass/volume)Ordered By: Arnaud Borja on 02-13-2025 Creatinine [Mass/Vol] 0.79 mg/dL 0.70-1.20 [facility] Serum globulin measurementOr dered By: Arnaud Borja on 02-13-2025 Globulin (S) [Mass/Vol] 3.1 g/dL 2.2-4.2 [facility] Serum glucose measurement (m ass/volume)Ordered By: Arnaud Borja on 02-13-2025 Glucose [Mass/Vol] 134 mg/dL High 70-99 [facility] Serum or plasma alanine rainey otransferase (ALT) measurementOrdered By: Arnaud Borja on 02-13-2025 ALT [Catalytic activity/Vol] 20 U/L <35 [facility] Serum or plasma albumin ceasar urement (mass/volume)Ordered By: Arnaud Borja on 02-13-2025 Albumin [Mass/Vol] 4.4 g/dL 3.5-5.0 [facility] Serum or plasma albumin/glob ulin mass ratioOrdered By: Arnaud Borja on 02-13-2025 Albumin/Globulin [Mass ratio] 1.4 {ratio} 0.9-2.4 [facility] Serum or plasma alkaline dasia sphatase measurementOrdered By: Arnaud Borja on 02-13-2025 ALP [Catalytic activity/Vol] 103 U/L 35-104 [facility] Serum or plasma calcium ceasar urement (mass/volume)Ordered By: Arnaud Borja on 02-13-2025 Calcium [Mass/Vol] 9.5 mg/dL 7.6-11.0 [facility] Serum or plasma urea nitroge n measurement (mass/volume)Ordered By: Arnaud Borja on 02-13-2025 Urea nitrogen [Mass/Vol] 13 mg/dL 4-19 [facility] Sodium levelOrdered By: Meir Borja on 02-13-2025 Sodium [Moles/Vol] 140 mmol/L 133-145 [facility] Total proteinOrdered By: Charanjit Borja on 02-13-2025 Protein [Mass/Vol] 7.5 g/dL 5.9-8.4 [facility] White blood cell (WBC) count Ordered By: Arnaud Borja on 02-13-2025 WBC (Bld) [#/Vol] 5.6 10*3/uL 4.4-11.0 [facility] CBC W/Diff, Automatedon 01-28 Absolute Neut Normal 2.0-7.7 [facility] Comment on above: Result Comment: OM C ANCEL REQUEST Performed By: #### L 500.4050, L100.0100 #### [facility] [address] [place], [address] HCT Normal 37-47 [facility] Comment on above: Result Comment: OM C ANCEL REQUEST Performed By: #### L 500.4050, L100.0100 #### [facility] [address] [place], [address] HGB Normal 12.0-15.0 [facility] Comment on above: Result Comment: OM C ANCEL REQUEST Performed By: #### L 500.4050, L100.0100 #### [facility] [address] [place], [address] MCH Normal 27.0-32.0 [facility] Comment on above: Result Comment: OM C ANCEL REQUEST Performed By: #### L 500.4050, L100.0100 #### [facility] [address] [place], [address] MCHC Normal 32-36 [facility] Comment on above: Result Comment: OM C ANCEL REQUEST Performed By: #### L 500.4050, L100.0100 #### [facility] [address] [place], [address] MCV Normal 81-99 [facility] Comment on above: Result Comment: OM C ANCEL REQUEST Performed By: #### L 500.4050, L100.0100 #### [facility] [address] [place], [address] NEUT% Normal 47-70 [facility] Comment on above: Result Comment: OM C ANCEL REQUEST Performed By: #### L 500.4050, L100.0100 #### [facility] [address] [place], [address] PLT Normal 150-450 [facility] Comment on above: Result Comment: OM C ANCEL REQUEST Performed By: #### L 500.4050, L100.0100 #### [facility] [address] [place], [address] RBC Normal 4.2-5.4 [facility] Comment on above: Result Comment: OM C ANCEL REQUEST Performed By: #### L 500.4050, L100.0100 #### [facility] [address] [place], [address] RDW CV Normal 11.6-14.6 [facility] Comment on above: Result Comment: OM C ANCEL REQUEST Performed By: #### L 500.4050, L100.0100 #### [facility] [address] [place], [address] RDW SD Normal 35.1-43.9 [facility] Comment on above: Result Comment: OM C ANCEL REQUEST Performed By: #### L 500.4050, L100.0100 #### [facility] [address] [place], [address] WBC Normal 4.4-11.0 [facility] Comment on above: Result Comment: OM C ANCEL REQUEST Performed By: #### L 500.4050, L100.0100 #### [facility] [address] [place], [address] Comprehensive Metabolic Prof ilon 02-10-2025 ALB Normal 3.5-5.0 [facility] Comment on above: Result Comment: OM C ANCEL REQUEST Performed By: #### L 500.4050, L100.0100 #### [facility] [address] [place], [address] ALK PHOS Normal 35-104 [facility] Comment on above: Result Comment: OM C ANCEL REQUEST Performed By: #### L 500.4050, L100.0100 #### [facility] [address] [place], [address] ALT Normal <=34 [facility] Comment on above: Result Comment: OM C ANCEL REQUEST Performed By: #### L 500.4050, L100.0100 #### [facility] [address] [place], [address] AST Normal <=31 [facility] Comment on above: Result Comment: OM C ANCEL REQUEST Performed By: #### L 500.4050, L100.0100 #### [facility] [address] [place], [address] BUN Normal 4-19 [facility] Comment on above: Result Comment: OM C ANCEL REQUEST Performed By: #### L 500.4050, L100.0100 #### [facility] [address] [place], [address] BUN/CRE Normal 10-20 [facility] Comment on above: Result Comment: OM C ANCEL REQUEST Performed By: #### L 500.4050, L100.0100 #### [facility] [address] [place], [address] Calcium Normal 7.6-11.0 [facility] Comment on above: Result Comment: OM C ANCEL REQUEST Performed By: #### L 500.4050, L100.0100 #### [facility] [address] [place], [address] CL Normal 98-108 [facility] Comment on above: Result Comment: OM C ANCEL REQUEST Performed By: #### L 500.4050, L100.0100 #### [facility] [address] [place], [address] CO2 Normal 21.0-32.0 [facility] Comment on above: Result Comment: OM C ANCEL REQUEST Performed By: #### L 500.4050, L100.0100 #### [facility] [address] [place], [address] CREAT,SERUM Normal 0.70-1.20 [facility] Comment on above: Result Comment: OM C ANCEL REQUEST Performed By: #### L 500.4050, L100.0100 #### [facility] [address] [place], [address] eGFR Normal >60 [facility] Comment on above: Result Comment: OM C ANCEL REQUEST Performed By: #### L 500.4050, L100.0100 #### [facility] [address] [place], [address] GAP Normal 5-15 [facility] Comment on above: Result Comment: OM C ANCEL REQUEST Performed By: #### L 500.4050, L100.0100 #### [facility] [address] [place], [address] GLU Normal 70-99 [facility] Comment on above: Result Comment: OM C ANCEL REQUEST Performed By: #### L 500.4050, L100.0100 #### [facility] [address] [place], [address] Potassium Normal 3.3-5.1 [facility] Comment on above: Result Comment: OM C ANCEL REQUEST Performed By: #### L 500.4050, L100.0100 #### [facility] [address] [place], [address] T BILI Normal 0.00-1.30 [facility] Comment on above: Result Comment: OM C ANCEL REQUEST Performed By: #### L 500.4050, L100.0100 #### [facility] [address] [place], [address] T PROT Normal 5.9-8.4 [facility] Comment on above: Result Comment: OM C ANCEL REQUEST Performed By: #### L 500.4050, L100.0100 #### [facility] [address] [place], [address] Comprehensive Metabolic Profil Normal 133-145 [facility] Comment on above: Result Comment: JIM Aileen CORBETT REQUEST Performed By: #### L 500.4050, L100.0100 #### [facility] [address] [place], [address] Echocardiogram study reportO rdered By: Cirilo Centeno on 02-05-2025 Study report [facility] [address] [place] [address] ONC Echo Complete 02/05/25 1615 MR#: [id number] Acct: [id number] Name: HOWARD HALL Rep #:[id number] : 1980 44 From: Cirilo Montes De Oca Attending Dr: Dr. Arnaud Borja MD Status: REG CLI Ordering Dr: Arnaud Borja MD Date: 02/05/25 Location: [facility] Sex: F C Admitted: Reason For Study Reason For Study: ANTINEWPLASTIC CHEMO Procedure This was a 2D Doppler, Color Flow transthoracic echocardiogram. The study was technically difficult. Due to left breast mass compromising parasternal imaging windows. Exam performed in department. Left Ventricle Normal LV size. The left ventricular ejection fraction is 60 %. Stage 1 diastolic dysfunction. No regional wall motion abnormalities noted. Right Ventricle Normal RV size. Normal systolic function. Atria Normal left atrium. Normal right atrium. Mitral Valve Normal mitral valve. Tricuspid Valve Normal tricuspid valve. Aortic Valve Trisinus/trileaflet aortic valve. Pulmonic Valve Normal pulmonic valve. Great Vessels Normal aortic root. The pulmonary artery is normal size. Inferior vena cava collapse with respiration. Pericardium/Pleural No pericardial effusion. MMode/2D Measurements & Calculations LVIDd: 4.1 cm IVSd: 0.79 cm Ao root diam: 3.1 cm LVIDs: 3.1 cm LVPWd: 0.92 cm FS: 26.1 % __ LAV(MOD-sp4): 29.2 ml LVAd ap4: 32.1 cm2 SV(MOD-sp4): 56.2 ml LVLd ap4: 8.7 cm SI(MOD-sp4): 31.8 ml/m2 EDV(MOD-sp4): 98.1 ml EDV(sp4-el): 100.6 ml LVAs ap4: 18.7 cm2 LVLs ap4: 7.1 cm ESV(MOD-sp4): 41.9 ml ESV(sp4-el): 41.8 ml EF(MOD-sp4): 57.3 % EF(sp4-el): 58.4 % __ SV(sp4-el): 58.8 ml LA A4 area: 12.0 cm2 LA dimension(2D): 2.6 cm __ RA A4 area: 9.6 cm2 TAPSE: 2.3 cm Time Measurements MV dec time: 0.20 sec Doppler Measurements & Calculations MV E max pepe: 88.1 cm/sec Lat Peak E' Pepe: 9.3 cm/sec Med Peak E' Pepe: 12.3 cm/sec MV A max pepe: 121.1 cm/sec E/E' lat: 9.5 E/E' med: 7.2 MV E/A: 0.73 __ MV V2 max: 131.7 cm/sec MV P1/2t max pepe: 97.3 cm/sec Ao V2 max: 119.7 cm/sec MV max P.9 mmHg MV P1/2t: 55.2 msec Ao max P.7 mmHg MV V2 mean: 69.0 cm/sec Ao V2 mean: 84.8 cm/sec MV mean P.2 mmHg MV dec slope: 515.7 cm/sec2 Ao mean P.1 mmHg MV V2 VTI: 25.6 cm MVA(P1/2t): 4.0 cm2 Ao V2 VTI: 23.2 cm AV (velocity ratio): 0.81 LV V1 max: 96.1 cm/sec PA V2 max: 81.5 cm/sec LV V1 max P.7 mmHg LV V1 mean P.2 mmHg LV V1 mean: 72.0 cm/sec LV V1 VTI: 18.7 cm ECHO/ONC Echo Complete Interpretation Summary Normal LV size. The left ventricular ejection fraction is 60 %. Stage 1 diastolic dysfunction. The global longitudinal strain is normal. The global longitudinal strain = -16.7% (normal). Ordering Physician: Arnaud Borja Referring Physician: David Ghotra Performed By: Isamar Talamantes, RDCS, RVT 02/05/251853 Date _ Cirilo Centeno MD CC: Dr. Arnaud Borja MD; DO Rizwana Pablo Date Dictated: 02/05/251614 Date Transcribed: 02/05/251853 Emt Driver: Signed [facility] Work Phone: ONC Echo Completeon 02-06-20 ONC Echo Complete [facility] Services [address] [place] [address] ONC Echo Complete 02/05/251614 MR#: [id number] Acct: [id number] Name: HOWARD HALL Rep #: [id number] : 1980 44 From: Cirilo Centeno MD Attending Dr: Dr. Arnaud Borja MD Status: REG CLI Ordering Dr: Arnaud Borja MD Date: 02/05/25 Location: [facility] Sex: F C Admitted: Reason For Study Reason For Study: ANTINEWPLASTIC CHEMO Procedure This was a 2D Doppler, Color Flow transthoracic echocardiogram. The study was technically difficult. Due to left breast mass compromising parasternal imaging windows. Exam performed in department. Left Ventricle Normal LV size. The left ventricular ejection fraction is 60 %. Stage 1 diastolic dysfunction. No regional wall motion abnormalities noted. Right Ventricle Normal RV size. Normal systolic function. Atria Normal left atrium. Normal right atrium. Mitral Valve Normal mitral valve. Tricuspid Valve Normal tricuspid valve. Aortic Valve Trisinus/trileaflet aortic valve. Pulmonic Valve Normal pulmonic valve. Great Vessels Normal aortic root. The pulmonary artery is normal size. Inferior vena cava collapse with respiration. Pericardium/Pleural No pericardial effusion. MMode/2D Measurements Calculations LVIDd: 4.1 cm IVSd: 0.79 cm Ao root diam: 3.1 cm LVIDs: 3.1 cm LVPWd: 0.92 cm FS: 26.1 % LAV(MOD-sp4): 29.2 ml LVAd ap4: 32.1 cm2 SV(MOD-sp4): 56.2 ml LVLd ap4: 8.7 cm SI(MOD-sp4): 31.8 ml/m2 EDV(MOD-sp4): 98.1 ml EDV(sp4-el): 100.6 ml LVAs ap4: 18.7 cm2 LVLs ap4: 7.1 cm ESV(MOD-sp4): 41.9 ml ESV(sp4-el): 41.8 ml EF(MOD-sp4): 57.3 % EF(sp4-el): 58.4 % SV(sp4-el): 58.8 ml LA A4 area: 12.0 cm2 LA dimension(2D): 2.6 cm RA A4 area: 9.6 cm2 TAPSE: 2.3 cm Time Measurements MV dec time: 0.20 sec Doppler Measurements Calculations MV E max pepe: 88.1 cm/sec Lat Peak E' Pepe: 9.3 cm/sec Med Peak E' Pepe: 12.3 cm/sec MV A max pepe: 121.1 cm/sec E/E' lat: 9.5 E/E' med: 7.2 MV E/A: 0.73 MV V2 max: 131.7 cm/sec MV P1/2t max pepe: 97.3 cm/sec Ao V2 max: 119.7 cm/sec MV max P.9 mmHg MV P1/2t: 55.2 msec Ao max P.7 mmHg MV V2 mean: 69.0 cm/sec Ao V2 mean: 84.8 cm/sec MV mean P.2 mmHg MV dec slope: 515.7 cm/sec2 Ao mean P.1 mmHg MV V2 VTI: 25.6 cm MVA(P1/2t): 4.0 cm2 Ao V2 VTI: 23.2 cm AV (velocity ratio): 0.81 LV V1 max: 96.1 cm/sec PA V2 max: 81.5 cm/sec LV V1 max P.7 mmHg LV V1 mean P.2 mmHg LV V1 mean: 72.0 cm/sec LV V1 VTI: 18.7 cm ECHO/ONC Echo Complete Interpretation Summary Normal LV size. The left ventricular ejection fraction is 60 %. Stage 1 diastolic dysfunction. The global longitudinal strain is normal. The global longitudinal strain = -16.7 % (normal). Ordering Physician: Arnaud Borja Referring Physician: David Ghotra Performed By: Isamar Talamantes, RDCS, RVT 02/05/251853 Date Cirilo Centeno MD CC: Dr. Arnaud Borja MD; Dr. David Ghotra DO Date Dictated: 02/05/25 1615 Date Transcribed: 02/05/251853 Emt Driver: Signed Normal [facility] Oncology Visit Reporton Oncology Visit Report [facility] [address] [place] [address] OFFICE VISIT Date of Service: 02/05/25 1524 MR#: [id number] Acct: [id number] Name: HOWARD HALL Rep #: [id number] : 1980 From: Kelsey Holland NP LAYOUT MECHANIC -C Age/Sex: 44/F Location: [facility] Status: Signed HPI Subjective Date of Service 02/05/25 Chief Complaint Chemotherapy education-TCHP History of Present Illness 44-year-old female menopausal [...] MALIGNANCY. December 10, 2024: A. Left breast, "mass", 9-11 o'clock, 5 CMFN, biopsy: * Invasive [...] in 100% of tumor cells PROGESTERONE RECEPTOR (HI): Positive, strong immunoreactivity in 100% of tumor cells HER2/DIEGO IHC: Positive, (Score 3+) KI67 IHC: 40% B. Left axilla, lymph node, biopsy: * Metastatic mammary carcinoma (See note) Note: The pancytokeratin stain is positive supporting the diagnosis. January 13, 2025 CT chest abdomen and pelvis: IMPRESSION: 1. Known mass in the left breast consistent with carcinoma. 2. There is no evidence of metastatic disease. January 17, 2025 bone scan: IMPRESSION: No evidence of metastatic breast cancer. Treatment summary and response: TCHP to start January 2025 Interval History The patient is presenting to clinic accompanied by son for an education visit. Admits social support is limited. [facility] Medical History (Updated 02/05/25 @ 17:01 by Kelsey Holland NP, LAYOUT MECHANIC-C) Encounter for education Post-menopausal Wears glasses Cancer Depression Anemia Smoker H (more content not included)... Normal [facility] Oncology Visit Reporton 12-30 Oncology Visit Report [facility] [address] [place], [place] [address]luis [place] [address] OFFICE VISIT Date of Service: 01/23/25 1125 MR#: [id number] Acct: [id number] Name: HOWARD HALL Rep #: [id number] : 1980 From: Arnaud Borja MD Age/Sex: 44/F Location: [facility] Status: Signed HPI Subjective Date of Service 01/23/25 Chief Complaint Breast cancer History of Present [...] MALIGNANCY. December 10, 2024: A. Left breast, "mass", 9-11 o'clock, 5 CMFN, biopsy: * Invasive [...] in 100% of tumor cells PROGESTERONE RECEPTOR (HI): Positive, strong immunoreactivity in 100% of tumor cells HER2/DIEGO IHC: Positive, (Score 3+) KI67 IHC: 40% B. Left axilla, lymph node, biopsy: * Metastatic mammary carcinoma (See note) Note: The pancytokeratin stain is positive supporting the diagnosis. January 13, 2025 CT chest abdomen and pelvis: IMPRESSION: 1. Known mass in the left breast consistent with carcinoma. 2. There is no evidence of metastatic disease. January 17, 2025 bone scan: IMPRESSION: No evidence of metastatic breast cancer. Treatment summary and response: TCHP to start January 2025 [facility] Medical History Post-menopausal Wears glasses Cancer Depression Anemia Smoker History of edema Regional lymph node metastasis present Anxiety Breast cancer Surgical History History of wisdom toot (more content not included)... Normal [facility] Bone Scan Whole Bodyon 01-17 Bone Scan Whole Body [facility] Imaging Services [address] [place] [address] Bone Scan Whole Body MR#: [id number] Acct: [id number] Name: HOWARD HALL Rep #: [id number] : 1980 F 44 From: Jerry Shaffer DO PCP: Dr. David Ghotra DO Status: REG CLI Study: Bone Scan Whole Body Date of Exam: 01/17/25 Exam# [id number] Ordering Dr: Arnaud Borja MD PROCEDURE: BONE SCAN WHOLE BODY 01/17/2025 REASON FOR EXAM: STAGING BREAST CANCER TECHNIQUE: Delayed phase imaging of the whole body after radiopharmaceutical administration intravenous RADIOPHARMACEUTICAL: 25 mCi Technetium-99m MDP IV COMPARISON: None. FINDINGS: Delayed: Normal uptake is seen in the axial and appendicular skeleton. Areas of expected uptake for osteoarthritis of the symmetric hands and wrists, elbows, shoulders, knees and ankle Oral secretion in the kidneys with tracer collecting in the urinary bladder is seen as expected s NM/Bone Scan Whole Body IMPRESSION: No evidence of metastatic breast cancer. Reading Location: [facility] CC: Dr. Arnaud Borja MD; Dr. David Ghotra DO Emt Driver: Signed Normal [facility] CT Chest, Abd, Pel w/Contras ton 01-13-2025 CT Chest, Abd, Pel w/Contrast [facility] Imaging Services [address] [place] [address] CT Chest, Abd, Pel w/Contrast MR#: [id number] Acct: [id number] Name: HOWARD HALL Rep #: [id number] : 1980 F 44 From: Figueroa Tinoco MD PCP: Dr. David Alec, DO Status: REG CLI Study: CT Chest, Abd, Pel w/Contrast Date of Exam: Exam# [id number] Ordering Dr: Arnaud Borja MD PROCEDURE: CT [...] 3. Other findings as noted. Reading Location: [id number] CC: Dr. Arnaud Borja MD; Dr. David Ghotra DO Emt Driver: Signed Normal [facility] Chest 1 Viewon 01-08-2025 Chest 1 View [facility] Imaging Services [address] [place] [address] Chest 1 View MR#: [id number] Acct: [id number] Name: HOWARD HALL Rep #: [id number] : 1980 F 44 From: Larry shields MD PCP: Dr. David Ghotra DO Status: [facility] Study: Chest 1 View Date of Exam: 01/08/25 Exam# [id number] Ordering Dr: Feliciano Castellon PROCEDURE: CHEST 1 [...] vena cava and right atrium. Reading Location: [place] [address] CC: Dr. Feliciano Castellon MD; Dr. David Ghotra DO Emt Driver: Signed Normal [facility] Discharge Instructionon 12-29 Discharge Instruction [facility] Medical Records Department [address] [place] [address] Instructions for Home/Discharge Instructions 01/08/25 1507 MR#: [id number] Acct: [id number] Name: HOWARD HALL Rep #: [id number] : 1980 44 From: Feliciano Castellon MD PCP: Dr. David Ghotra DO Status:REG TXC Discharge Instructions Procedure Gallbladder Diet Discharge Diet: [...] to schedule 2 week follow up appointment. [phone] Test Results: Test results from this visit will be discussed in further detail at your follow-up appointment, if applicable. Discharge Plan Admission Attending Provider: Feliciano Castellon Primary Care Provider: David Ghotra Instructions Print Language: Tajik Discharge Orders/Prescriptions Prescriptions: No Action citalopram 40 mg tablet 40 mg PO QDAY Referrals / Follow Up: David Ghotra DO [Primary Care Provider] - Disposition Disposition (needs filled in before D/C Order can be placed): Home, Self Care 01/08/25 1510 Feliciano Castellon MD CC: Dr. David Ghotra DO Signed Normal [facility] H AND P Exam - Surgicalon H&P Exam - Surgical [facility] Medical Records Department [address] [place] [address] H P Exam - Surgical 01/08/25 1420 MR#: [id number] Acct: [id number] Name: HOWARD HALL Rep #: [id number] : 1980 44 From: Feliciano Castellon MD PCP: Dr. David Ghotra, DO Status:[facility] Location: [place] [address]-1 HPI - General HPI Narrative HOWARD HALL, [...] willing to proceed. Feliciano Castellon MD Pager: [facility] [address] [place] [address], [address] [place] [address] Office: 01/08/25 142 Cosigner Signature (if applicable): CC: Dr. Feliciano Castlelon MD; Dr. David Ghotra, Signed Normal [facility] MR/POSTOP.[facility] 01-08-2025 MR/POSTOP.[facility] Medical Records Department [address] [place], [place] [address] Anesthesia Postop Eval I 01/08/25 1553 MR#: [id number] Acct: [id number] Name: HOWARD HALL Rep #: [id number] : 1980 44 From: Rebecca Mathews HAT TRIMMER PCP: Dr. David Ghotra DO Status:REG SDC Y Race: C Location: [place] [address]- Anesthesia: Postop Eval I Current Vital Signs [...] completed: Yes 01/08/25 1554 Date Rebecca DeForeest HAT TRIMMER Cosigner Signature: Date CC: Signed Normal [facility] MR/POSTOP.[facility] Medical Records Department [address] [place] [address] Anesthesia Postop Eval I 01/08/25 1506 MR#: [id number] Acct: [id number] Name: VICKEYHOWARD WILLIAM Falguni Rep #: [id number] : 1980 44 From: Rebecca Mathews HAT TRIMMER PCP: Dr. David Ghotra, DO Status:REG SDC Y Race: C Location: [place] [address] Anesthesia: Postop Eval I Current Vital Signs [...] completed: Yes 01/08/25 1508 Date Rebecca DeForeest HAT TRIMMER Cosigner Signature: CC: Signed Normal [facility] MR/[id number] 01-08-2025 MR/POSTOPAN2 [facility] Medical Records Department [address] [place] [address] Anesthesia Postop Eval II 01/08/25 1530 MR#: [id number] Acct: [id number] Name: HOWARD HALL Rep #: [id number] : 1980 44 From: Clyde Starks MD PCP: Dr. David Ghotra, DO Status:REG SDC Y Race: C Location: [place] [address] Anesthesia Postop Eval I Sum Postop Eval Completion status Anesthesia document: Postop Eval 1 completed: Yes Anesthesia Postop Eval I Summary Anesthesia Postop Eval I Summary: Anesthesia Postop Eval I: Assessment Summary Airway patent Yes 01/08/25 15:08 HAT [email or web address].JDEF Spontaneous unlabored Yes 01/08/25 15:08 HAT [email or web address].JDEF respirations Mental status Awake 01/08/25 15:08 HAT TRIMMER.JDEF nausea No 01/08/25 15:08 HAT TRIMMER.JDEF Vomiting No 01/08/25 15:08 HAT TRIMMER.JDEF Anesthesia Postop Eval I: Fluid Summary Crystalloid volume administer 300 01/08/25 15:08 HAT TRIMMER.JDEF (ml) Colloids volume administered ( ml) Blood Product volume administered (ml) Total IV fluid infused 300 01/08/25 15:08 HAT TRIMMER.JDEF Anesthesia Postop Eval I: Summary Notes Anesthesia Complication No 01/08/25 15:08 HAT TRIMMER.JDEF Anesthesia Complication Comment: Post-operative progress note Anesthesia: Postop Eval II Evaluation Mental status: Awake Pain Level: 0 nausea: No Vomiting: No 01/08/25 1530 Date Clyde Starks MD Cosigner Signature: Date CC: Signed Normal [facility] Operative Reporton 5 Operative Report [facility] Medical Records Department [address] [place] [address] Operative Report 01/08/25 1506 MR#: [id number] Acct: [id number] Name: HOWARD HALL Rep #: [id number] : 1980 44 From: Feliciano Castellon MD PCP: Dr. David Ghotra, DO Status:REG [facility] Location: [place] [address] Operative Report (Standard) Operative Information Date of Procedure: 01/08/25 Pre-Operative Diagnosis: Need for vascular access port for chemotherapy Post-Operative Diagnosis: Same Surgery/Procedure Performed: Ultrasound and fluoroscopy guided right chest port placement with utilization of right IJ broom worker: No Type of Anesthesia: Local MAC RN [...] apply: Implanted device Implanted device details: 8 Pashto PowerPort Estimated Blood Loss: 5 Specimen collected: [...] CC: Dr. Feliciano Castellon MD; Dr. David Ghotra DO Signed [facility] MR/PAT.[facility] 01-03-2025 MR/PAT.[facility] Medical Records Department [address] [place] [address] PAT - Anesthesia 01/03/25 0832 MR#: [id number] Acct: [id number] Name: HOWARD HALL Rep #: [id number] : 1980 44 From: Clyde Starks MD PCP: Dr. David Ghotra DO Status:PRE [facility] Y Race: C Location: [facility] Pre-Assessment Diagnosis/Proposed Procedure Planned Operative Procedure(s): (R) Insertion, Vascular Port right possible left Anesthesia History Anesthesia History - software engineer backend: Anesthesia History - software engineer backend Hx Hospitalization No 01/02/25 13:24 Any Problems [...] take am of surgery PONV PONV - software engineer backend: PONV - software engineer backend Female Yes 01/02/25 13:24 HX of Motion [...] 12/25/24 16:04 Respiratory Assessment Respiratory Assessment - software engineer backend: Respiratory Tract Infection Hx - software engineer backend Hx Respiratory Tract Infection No 01/02/25 13:24 STOP Sleep Apnea STOP Sleep Apnea - software engineer backend: STOP Sleep Apnea - software engineer backend Hx Hypertension No 01/02/25 13:24 Hx Sleep [...] 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 Use History - software engineer backend: Tobacco Use History - software engineer backend Tobacco Use Smoking Status Light Smoker (<10/day) 01/02/25 13:24 Hx Tobacco Use Yes 01/02/25 13:24 Years Smoking Packs Smoked per Day 0.5 01/02/25 13:24 Smoking Cessation Date was within the last 15 years Hx Smoking Cessation Date Hx Smoking Cessation Counseling Hematologic Medial History Hematologic Hx - software engineer backend: Hematologic Medical Hx - aws software development engineer Hx of Blood Transfusion No 01/02/25 [...] 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 History - software engineer backend: /Reproductive Hx- software engineer backend Hx Now No 01/02/25 13:24 Gestational Age (in weeks): EDC: Hx Hx Para Hx Section SAB No 01/02/25 13:24 PFS Medical History (Updated 01/02/25 @ 13:34 by [...] used: 20 alcoh (more content not included)... [facility] MR/Aleshia 01-02-2025 MR/ZOHREH.YAHIR [facility] Medical Records Department [address] [place] [address] PAT - Anesthesia 01/02/25 1722 MR#: [id number] Acct: [id number] Name: HOWARD HALL Rep #: [id number] : 1980 44 From: Stuart Rashid MD PCP: Dr. David Ghotra, DO Status:PRE SDC Y Race: C Location: [facility] Pre-Assessment Diagnosis/Proposed Procedure Planned Operative Procedure(s): (R) Insertion, Vascular Port right possible left Anesthesia History Anesthesia History - software engineer backend: Anesthesia History - software engineer backend Hx Hospitalization No 01/02/25 13:24 Any Problems [...] take am of surgery PONV PONV - software engineer backend: PONV - software engineer backend Female Yes 01/02/25 13:24 HX of Motion [...] 12/25/24 16:04 Respiratory Assessment Respiratory Assessment - software engineer backend: Respiratory Tract Infection Hx - software engineer backend Hx Respiratory Tract Infection No 01/02/25 13:24 STOP Sleep Apnea STOP Sleep Apnea - software engineer backend: STOP Sleep Apnea - software engineer backend Hx Hypertension No 01/02/25 13:24 Hx Sleep [...] 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 Use History - software engineer backend: Tobacco Use History - software engineer backend Tobacco Use Smoking Status Light Smoker (<10/day) 01/02/25 13:24 Hx Tobacco Use Yes 01/02/25 13:24 Years Smoking Packs Smoked per Day 0.5 01/02/25 13:24 Smoking Cessation Date was within the last 15 years Hx Smoking Cessation Date Hx Smoking Cessation Counseling Hematologic Medial History Hematologic Hx - software engineer backend: Hematologic Medical Hx - aws software development engineer Hx of Blood Transfusion No 01/02/25 [...] 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 History - software engineer backend: /Reproductive Hx- software engineer backend Hx Now No 01/02/25 13:24 Gestational Age [...] used: 20 (more content not included)... Normal [facility] CA 15-3on 12-27-2024 CA 15-3 74.7 U/mL Abnormal 0.0-25.0 [facility] Comment on above: Result Comment: [employer] Electrochemiluminescence Immunoassay (ECLIA) Values obtained with different assay methods or kits cannot be used interchangeably. Results cannot be interpreted as absolute evidence of the presence or absence of malignant disease. Performed at: [address] [id number] Storage Administrator: Mendez Parmar PhD, Phone: [phone] Performed By: #### L 3100.5040, L100.0100, L500.4050, L400.7600, L3100.5055, L3100.5030 ####[facility] [address] [facility] [place], [place], [id number] CA 27.29on 12-27-2024 CA 27.29 103.0 U/mL Abnormal 0.0-38.6 [facility] Comment on above: Result Comment: [employer] Immunochemiluminometric Methodology (ICMA) Values obtained with different assay methods or kits cannot be used interchangeably. Results cannot be interpreted as absolute evidence of the presence or absence of malignant disease. Performed By: #### L 3100.5040, L100.0100, L500.4050, L400.7600, L3100.5055, L3100.5030 ####[facility] [address] [facility] [place] [place], [address] Absolute lymphocyte countOrd ered By: Arnaud Borja on 12-25-2024 Lymphocytes Auto (Unsp spec) [#/Vol] 2.39 10*3/uL 0.83-4.51 [facility] Absolute neutrophil countOrd ered By: Arnaud Borja on 12-25-2024 Neutrophils (Bld) [#/Vol] 3.0 10*3/uL 2.0-7.7 [facility] Anion gap in Serum or Plasma Ordered By: Arnaud Borja on 12-25-2024 Anion gap [Moles/Vol] 11 mmol/L 5- [facility] Automated lymphocyte count a s percentage of total leukocytesOrdered By: Arnaud Borja on 12-25-2024 Lymphocytes/100 WBC Auto (Unsp spec) 39.3 % - [facility] BUN/creatinine ratioOrdered By: [facility] Bor[facility] on 12-25-2024 Urea nitrogen/Creatinine [Mass ratio] 16.4 mg/mg 10-20 [facility] Basophil percentageOrdered B y: Arnaud Borja on 12-25-2024 Basophils/100 WBC (Bld) 0.7 % 0-1 [facility] Bilirubin, totalOrdered By: Arnaud Borja on 12-25-2024 Bilirubin [Mass/Vol] 0.28 mg/dL 0.00-1.30 [facility] CA 15-3Ordered By: Arnaud alvarado on 12-25-2024 CA 15-3 74.7 U/mL High 0.0-25.0 [facility] Comment on above: [employer] El ectrochemiluminescence Immunoassay(ECLIA)Values obtained with different assay methods or kits cannotbe used interchangeably. Results cannot be interpreted asabsolute evidence of the presence or absence of malignantdisease.Performed at: [address] [id number] Director: Mendez Parmar PhD, Phone: [phone] CA 27.29Ordered By: Arnaud Borja on 12-25-2024 CA 27.29 103.0 U/mL High 0.0-38.6 [facility] Comment on above: [employer] Immu nochemiluminometric Methodology (ICMA)Values obtained with different assay methods or kits cannotbe used interchangeably. Results cannot be interpreted asabsolute evidence of the presence or absence of malignantdisease. CBC W/Diff, Automatedon 11-29 Absolute Lymph 2.39 X10 3/uL Normal 0.83-4.51 [facility] Comment on above: Performed By: #### L 3100.5040, L100.0100, L500.4050, L400.7600, L3100.5055, L3100.5030 ####[facility] [address] [place], [address] Absolute Neut 3.0 X10 3/uL Normal 2.0-7.7 [facility] Comment on above: Performed By: #### L 3100.5040, L100.0100, L500.4050, L400.7600, L3100.5055, L3100.5030 ####[facility] [address] [place], [address] Basophils/100 WBC (Bld) 0.7 % Normal 0-1 [facility] Comment on above: Performed By: #### L 3100.5040, L100.0100, L500.4050, L400.7600, L3100.5055, L3100.5030 ####[facility] [address] [place], [address] Eosinophils/100 WBC (Bld) 3.5 % Normal 0-5 [facility] Comment on above: Performed By: #### L 3100.5040, L100.0100, L500.4050, L400.7600, L3100.5055, L3100.5030 ####[facility] [address] [place], [address] Erythrocyte distribution width (RBC) [Ratio] 12.4 % Normal 11.6-14.6 [facility] Comment on above: Performed By: #### L 3100.5040, L100.0100, L500.4050, L400.7600, L3100.5055, L3100.5030 ####[facility] [address] [place], [address] Hematocrit (Bld) [Volume fraction] 36.2 % Low 37-47 [facility] Comment on above: Performed By: #### L 3100.5040, L100.0100, L500.4050, L400.7600, L3100.5055, L3100.5030 ####[facility] [address] [place], [address] Hemoglobin (Bld) [Mass/Vol] 12.3 g/dL Normal 12.0-15.0 [facility] Comment on above: Performed By: #### L 3100.5040, L100.0100, L500.4050, L400.7600, L3100.5055, L3100.5030 ####[facility] [address] [place], [address] IG% 0.200 Normal 0.0-0.9 [facility] Comment on above: Result Comment: IG% - Immature Granulocytes (promyelocytes, myelocytes and metamyelocytes) > 1% indicates that a LEFT SHIFT is Present. Performed By: #### L 3100.5040, L100.0100, L500.4050, L400.7600, L3100.5055, L3100.5030 ####[facility] [address] [place], [address] Lymphocytes/100 WBC (Bld) 39.3 % Normal 19-41 [facility] Comment on above: Performed By: #### L 3100.5040, L100.0100, L500.4050, L400.7600, L3100.5055, L3100.5030 ####[facility] [address] [place], [address] MCH (RBC) [Entitic mass] 29.0 pg Normal 27.0-32.0 [facility] Comment on above: Performed By: #### L 3100.5040, L100.0100, L500.4050, L400.7600, L3100.5055, L3100.5030 ####[facility] [address] [place], [address] MCHC (RBC) [Mass/Vol] 34.0 g/dL Normal 32-36 [facility] Comment on above: Performed By: #### L 3100.5040, L100.0100, L500.4050, L400.7600, L3100.5055, L3100.5030 ####[facility] [address] [place], [address] MCV (RBC) [Entitic vol] 85.4 fL Normal 81-99 [facility] Comment on above: Performed By: #### L 3100.5040, L100.0100, L500.4050, L400.7600, L3100.5055, L3100.5030 ####[facility] [address] [place], [address] Monocytes/100 WBC (Bld) 7.9 % Normal 0-10 [facility] Comment on above: Performed By: #### L 3100.5040, L100.0100, L500.4050, L400.7600, L3100.5055, L3100.5030 ####[facility] [address] [place], [address] Neutrophils/100 WBC (Bld) 48.4 % Normal 47-70 [facility] Comment on above: Performed By: #### L 3100.5040, L100.0100, L500.4050, L400.7600, L3100.5055, L3100.5030 ####[facility] [address] [place], [address] Nucleated RBC (Bld) [#/Vol] 0 10*3/uL Normal 0-5 [facility] Comment on above: Performed By: #### L 3100.5040, L100.0100, L500.4050, L400.7600, L3100.5055, L3100.5030 ####[facility] [address] [place], [address] Platelet mean volume (Bld) [Entitic vol] 11.0 fL Normal 6.2-12.0 [facility] Comment on above: Performed By: #### L 3100.5040, L100.0100, L500.4050, L400.7600, L3100.5055, L3100.5030 ####[facility] [address] [place], [address] Platelets (Bld) [#/Vol] 258 10*3/uL Normal 150-450 [facility] Comment on above: Performed By: #### L 3100.5040, L100.0100, L500.4050, L400.7600, L3100.5055, L3100.5030 ####[facility] [address] [place], [address] RBC (Bld) [#/Vol] 4.24 10*6/uL Normal 4.2-5.4 [facility] Comment on above: Performed By: #### L 3100.5040, L100.0100, L500.4050, L400.7600, L3100.5055, L3100.5030 ####[facility] [address] [place], [address] RDW SD 38.7 fl Normal 35.1-43.9 [facility] Comment on above: Performed By: #### L 3100.5040, L100.0100, L500.4050, L400.7600, L3100.5055, L3100.5030 ####[facility] [address] [place], [address] WBC (Bld) [#/Vol] 6.1 10*3/uL Normal 4.4-11.0 [facility] Comment on above: Performed By: #### L 3100.5040, L100.0100, L500.4050, L400.7600, L3100.5055, L3100.5030 ####[facility] [address] [place], [address] Carbon dioxide, total [Moles /volume] in Central venous bloodOrdered By: Arnaud Borja on 12-25-2024 CO2 [Moles/Vol] 25.7 mmol/L 21.0-32.0 [facility] Chloride assayOrdered By: Jluis Borja on 12-25-2024 Chloride [Moles/Vol] 105 mmol/L 98-108 [facility] Comprehensive Metabolic Prof ilon 12-25-2024 Albumin [Mass/Vol] 4.6 g/dL Normal 3.5-5.0 [facility] Comment on above: Performed By: #### L 3100.5040, L100.0100, L500.4050, L400.7600, L3100.5055, L3100.5030 ####[facility] [address] [place], [address] Albumin/Globulin [Mass ratio] 1.5 {ratio} Normal 0.9-2.4 [facility] Comment on above: Performed By: #### L 3100.5040, L100.0100, L500.4050, L400.7600, L3100.5055, L3100.5030 ####[facility] [address] [place], [address] ALK PHOS 98 U/L Normal 35-104 [facility] Comment on above: Performed By: #### L 3100.5040, L100.0100, L500.4050, L400.7600, L3100.5055, L3100.5030 ####[facility] [address] [place], [address] ALT [Catalytic activity/Vol] 24 U/L Normal <=34 [facility] Comment on above: Performed By: #### L 3100.5040, L100.0100, L500.4050, L400.7600, L3100.5055, L3100.5030 ####[facility] [address] [place], [address] AST [Catalytic activity/Vol] 27 U/L Normal <=31 [facility] Comment on above: Performed By: #### L 3100.5040, L100.0100, L500.4050, L400.7600, L3100.5055, L3100.5030 ####[facility] [address] [place], [address] Bilirubin [Mass/Vol] 0.28 mg/dL Normal 0.00-1.30 [facility] Comment on above: Performed By: #### L 3100.5040, L100.0100, L500.4050, L400.7600, L3100.5055, L3100.5030 ####[facility] [address] [place], [address] BUN/CRE 16.4 RATIO Normal 10-20 [facility] Comment on above: Performed By: #### L 3100.5040, L100.0100, L500.4050, L400.7600, L3100.5055, L3100.5030 ####[facility] [address] [place], [address] Calcium [Mass/Vol] 9.7 mg/dL Normal 7.6-11.0 [facility] Comment on above: Performed By: #### L 3100.5040, L100.0100, L500.4050, L400.7600, L3100.5055, L3100.5030 ####[facility] [address] [place], [address] Chloride [Moles/Vol] 105 mmol/L Normal 98-108 [facility] Comment on above: Performed By: #### L 3100.5040, L100.0100, L500.4050, L400.7600, L3100.5055, L3100.5030 ####[facility] [address] [place], [address] CO2 [Moles/Vol] 25.7 mmol/L Normal 21.0-32.0 [facility] Comment on above: Performed By: #### L 3100.5040, L100.0100, L500.4050, L400.7600, L3100.5055, L3100.5030 ####[facility] [address] [place], [address] Creatinine [Mass/Vol] 0.84 mg/dL Normal 0.70-1.20 [facility] Comment on above: Performed By: #### L 3100.5040, L100.0100, L500.4050, L400.7600, L3100.5055, L3100.5030 ####[facility] [address] [place], [place], [phone] GAP 11 Normal 5-15 [facility] Comment on above: Performed By: #### L 3100.5040, L100.0100, L500.4050, L400.7600, L3100.5055, L3100.5030 ####[facility] [address] [place], [address] GFR/1.73 sq M.predicted among non-blacks MDRD (S/P/Bld) [Vol rate/Area] 88 mL/min/{1.73_m2} Normal >60 [facility] Comment on above: Result Comment: mL/m in/1.73m2 CKD-EPI Creatinine Equation (2020) Performed By: #### L 3100.5040, L100.0100, L500.4050, L400.7600, L3100.5055, L3100.5030 ####[facility] [address] [place], [address] Globulin (S) [Mass/Vol] 3.0 g/dL Normal 2.2-4.2 [facility] Comment on above: Performed By: #### L 3100.5040, L100.0100, L500.4050, L400.7600, L3100.5055, L3100.5030 ####[facility] [address] [place], [address] Glucose [Mass/Vol] 95 mg/dL Normal 70-99 [facility] Comment on above: Performed By: #### L 3100.5040, L100.0100, L500.4050, L400.7600, L3100.5055, L3100.5030 ####[facility] [address] [place], [address] Potassium [Moles/Vol] 4.0 mmol/L Normal 3.3-5.1 [facility] Comment on above: Performed By: #### L 3100.5040, L100.0100, L500.4050, L400.7600, L3100.5055, L3100.5030 ####[facility] [address] [place], [address] Sodium [Moles/Vol] 141 mmol/L Normal 133-145 [facility] Comment on above: Performed By: #### L 3100.5040, L100.0100, L500.4050, L400.7600, L3100.5055, L3100.5030 ####[facility] [address] [place], [address] T PROT 7.5 g/dL Normal 5.9-8.4 [facility] Comment on above: Performed By: #### L 3100.5040, L100.0100, L500.4050, L400.7600, L3100.5055, L3100.5030 ####[facility] [address] [place], [address] Urea nitrogen [Mass/Vol] 14 mg/dL Normal 4-19 [facility] Comment on above: Performed By: #### L 3100.5040, L100.0100, L500.4050, L400.7600, L3100.5055, L3100.5030 ####[facility] [address] [place], [address] Eosinophil percentageOrdered By: Arnaud Borja on 12-25-2024 Eosinophils/100 WBC (Bld) 3.5 % 0-5 [facility] Erythrocyte distribution wid th ratioOrdered By: [facility] Huong on 12-25-2024 Erythrocyte distribution width (RBC) [Ratio] 12.4 % 11.6-14.6 [facility] Erythrocyte distribution wid th standard deviationOrdered By: [facility] Huong on 12-25-2024 Erythrocyte distribution width (RBC) [Ratio] 38.7 fl 35.1-43.9 [facility] FSH and LHon 12-25-2024 FSH 89.2 mIU/mL Normal [facility] Comment on above: Result Comment: FEMA LE: Follicular: 1.4 - 18.1 mIU/mL Midcycle: 3.4 - 33.4 mIU/mL Luteal: 1.5 - 9.1 mIU/mL Post Menopause: 23.0 - 116.3 mIU/mL MALE: 1.4 - 18.1 mIU/mL Performed By: #### L 3100.5040, L100.0100, L500.4050, L400.7600, L3100.5055, L3100.5030 ####[facility] [address] [place], [address] LH 60.9 mIU/mL Normal [facility] Comment on above: Result Comment: FEMA LE: Follicular: 1.9-12.5 mIU/mL Midcycle: 8.7-76.3 mIU/mL Luteal: 0.5-16.9 mIU/mL Post Menopause: 15.9-54.0 mIU/mL MALE: 20-70 Years: 1.5-9.3 mIU/mL >70 Years: 3.1-34.6 mIU/mL Performed By: #### L 3100.5040, L100.0100, L500.4050, L400.7600, L3100.5055, L3100.5030 ####[facility] [address] [place], [place], [address] Glomerular filtration rate ( GFR) estimation/1.73 sq m using serum, plasma, or whole bOrdered By: Arnaud Borja on 12-25-2024 GFR/1.73 sq M.predicted among non-blacks MDRD (S/P/Bld) [Vol rate/Area] 88 mL/min/{1.73_m2} >60 [facility] Comment on above: mL/min/1.73m2 CKD-EP I Creatinine Equation (2020) Hematocrit Auto (Bld) [Volum e fraction]Ordered By: Arnaud Borja on 12-25-2024 Hematocrit (Bld) [Volume fraction] 36.2 % Low 37-47 [facility] Hemoglobin measurementOrdere d By: Arnaud Borja on 12-25-2024 Hemoglobin (Bld) [Mass/Vol] 12.3 g/dL 12.0-15.0 [facility] Immature granulocytes/100 WB C Auto (Bld)Ordered By: Arnaud Borja on 12-25-2024 Immature granulocytes/100 WBC (Bld) 0.200 % 0.0-0.9 [facility] Comment on above: IG% - Immature Granu locytes (promyelocytes, myelocytes and metamyelocytes) > 1% indicates that a LEFT SHIFT is Present. LH ser/plasOrdered By: Pastor Borja on 12-25-2024 Lutropin Qn 60.9 m[IU]/mL [facility] Comment on above: FEMALE:Follicular: 1 .9-12.5 mIU/mLMidcycle: 8.7-76.3 mIU/mLLuteal: 0.5-16.9 mIU/mLPost Menopause: 15.9-54.0 mIU/mLMALE:20-70 Years: 1.5-9.3 mIU/mL>70 Years: 3.1-34.6 mIU/mL Laboratory - Chemistry and C hemistry - challengeOrdered By: Arnaud Borja on 12-25-2024 AST [Catalytic activity/Vol] 27 U/L <32 [facility] MCV (mean corpuscular volume ) determinationOrdered By: Arnaud Borja on 12-25-2024 MCV (RBC) [Entitic vol] 85.4 fL 81-99 [facility] Mean corpuscular hemoglobin (MCH) determinationOrdered By: Arnaud Borja on 12-25-2024 MCH (RBC) [Entitic mass] 29.0 pg 27.0-32.0 [facility] Mean corpuscular hemoglobin concentration (MCHC) determinationOrdered By: Arnaud Borja on 12-25-2024 MCHC (RBC) [Mass/Vol] 34.0 g/dL 32-36 [facility] Mean platelet volume determi nationOrdered By: Arnaud Borja on 12-25-2024 Platelet mean volume (Bld) [Entitic vol] 11.0 fL 6.2-12.0 [facility] Monocyte percentageOrdered B y: Arnaud Borja on 12-25-2024 Monocytes/100 WBC (Bld) 7.9 % 0-10 [facility] Neutrophil percentageOrdered By: Arnaud Borja on 12-25-2024 Neutrophils/100 WBC (Bld) 48.4 % 47-70 [facility] Nucleated red blood cell per centageOrdered By: Arnaud Borja on 12-25-2024 Nucleated RBC/100 WBC (Bld) [Ratio] 0 % 0-5 [facility] Oncology Visit Reporton 11-29 Oncology Visit Report [facility] [address] [place] [address] OFFICE VISIT Date of Service: 12/25/24 1555 MR#: [id number] Acct: [id number] Name: HOWARD HALL Rep #: [id number] : 1980 From: Arnaud Borja MD Age/Sex: 44/F Location: [facility] Status: Signed with Addenda ADDENDUM by Dr. Arnaud Borja MD on 01/20/25 at 1253 Subjective Chief Complaint Breast cancer History of Present [...] MALIGNANCY. December 10, 2024: A. Left breast, "mass", 9-11 o'clock, 5 CMFN, biopsy: * Invasive [...] in 100% of tumor cells PROGESTERONE RECEPTOR (HI): Positive, strong immunoreactivity in 100% of tumor cells HER2/DIEGO IHC: Positive, (Score 3+) KI67 IHC: 40% B. Left axilla, lymph node, biopsy: * Metastatic mammary carcinoma (See note) Note: The pancytokeratin stain is positive supporting the diagnosis. Interval History 44-year-old female menopausal status to be determined [...] mammogram demonstrates that the patient has dense b (more content not included)... Normal [facility] Platelet countOrdered By: Jluis Borja on 12-25-2024 Platelets (Bld) [#/Vol] 258 10*3/uL 150-450 [facility] Potassium measurement (mass/ volume)Ordered By: Arnaud Borja on 12-25-2024 Potassium (Unsp spec) [Mass/Vol] 4.0 mmol/L 3.3-5.1 [facility] ,Urineon 12-25-2024 Beta HCG ( test) Ql (U) Negative Normal [facility] Comment on above: Result Comment: [phone] Very dilute urine specimens, as indicated by a low specific gravity, may not contain patient admitting representative levels of hCG. If is still suspected, a first morning urine specimen should be collected 48 hours later and tested. Performed By: #### L 3100.5040, L100.0100, L500.4050, L400.7600, L3100.5055, L3100.5030 #### [facility] [address] [place], [address] RBC Auto (Bld) [#/Vol]Ordere d By: Arnaud Borja on 12-25-2024 RBC (Bld) [#/Vol] 4.24 10*6/uL 4.2-5.4 [facility] Serum creatinine measurement (mass/volume)Ordered By: Arnaud Borja on 12-25-2024 Creatinine [Mass/Vol] 0.84 mg/dL 0.70-1.20 [facility] Serum globulin measurementOr dered By: Arnaud Borja on 12-25-2024 Globulin (S) [Mass/Vol] 3.0 g/dL 2.2-4.2 [facility] Serum glucose measurement (m ass/volume)Ordered By: Arnaud Borja on 12-25-2024 Glucose [Mass/Vol] 95 mg/dL 70-99 [facility] Serum or plasma alanine rainey otransferase (ALT) measurementOrdered By: Arnaud Borja on 12-25-2024 ALT [Catalytic activity/Vol] 24 U/L <35 [facility] Serum or plasma albumin ceasar urement (mass/volume)Ordered By: Arnaud Borja on 12-25-2024 Albumin [Mass/Vol] 4.6 g/dL 3.5-5.0 [facility] Serum or plasma albumin/glob ulin mass ratioOrdered By: Arnaud Borja on 12-25-2024 Albumin/Globulin [Mass ratio] 1.5 {ratio} 0.9-2.4 [facility] Serum or plasma alkaline dasia sphatase measurementOrdered By: Arnaud Borja on 12-25-2024 ALP [Catalytic activity/Vol] 98 U/L 35-104 [facility] Serum or plasma calcium ceasar urement (mass/volume)Ordered By: Arnaud Borja on 12-25-2024 Calcium [Mass/Vol] 9.7 mg/dL 7.6-11.0 [facility] Serum or plasma urea nitroge n measurement (mass/volume)Ordered By: Arnaud Borja on 12-25-2024 Urea nitrogen [Mass/Vol] 14 mg/dL 4-19 [facility] Sodium levelOrdered By: Meir Borja on 12-25-2024 Sodium [Moles/Vol] 141 mmol/L 133-145 [facility] Total proteinOrdered By: Charanjit Borja on 12-25-2024 Protein [Mass/Vol] 7.5 g/dL 5.9-8.4 [facility] Urine testOrdered By: Arnaud Borja on 12-25-2024 HCG ( test) Ql (U) Negative [facility] Comment on above: [id number] dilute ur ine specimens, as indicated by a low specificgravity, may not contain patient admitting representative levels of hCG. If is still suspected, a first morning urinespecimen should be collected 48 hours later and tested. White blood cell (WBC) count Ordered By: Arnaud Borja on 12-25-2024 WBC (Bld) [#/Vol] 6.1 10*3/uL 4.4-11.0 [facility] Surgical pathology reportOrd ered By: Rain Bruce on 12-11-2024 Surgical pathology study [facility] Immunohistochemical Stainson 12-10-2024 Immunohistochemical Stains Patient Age/Sex Location Account Attending Physician HOWARD HALL 43/F LABSPEC [id number] Dr. Feliciano Castellon MD Specimen: [id number] Received: 12/10/24 Status: ARABELLAChastity Ángel Num: [id number] Spec Type: BREAST BX Subm Dr: Dr. Feliciano Castellon MD HEADER OPERATION: Core needle biopsy of left breast mass and left axillary lymph node PRE-OP DIAGNOSIS: Left breast mass TISSUE SUBMITTED: A- Left breast mass 9-11 o'clock, 5cm from the nipple, B- Left axillary lymph node Ischemic Time: 1 minute Fixation Time: 7 hours MICROSCOPIC DIAGNOSIS A. Left breast, "mass", 9-11 o'clock, 5 CMFN, biopsy: * Invasive [...] in 100% of tumor cells PROGESTERONE RECEPTOR (HI): Positive, strong immunoreactivity in 100% of tumor cells HER2/DIEGO IHC: Positive, (Score 3+) KI67 IHC: 40% B. Left axilla, lymph node, biopsy: * Metastatic mammary carcinoma (See note) Note: The pancytokeratin stain is positive supporting the diagnosis. MICROSCOPIC DESCRIPTION Slides are reviewed. All controls show appropriate reactivity. Estrogen receptor (ER) and progesterone receptor (HI) are evaluated by manual quantitative immunohistochemistry on formalin-fixed (for >6 hours and <72 hours if possible), paraffin-embedded tissue, using clone [id number] (Hilham) for ER, clone [id number] (H[place]ham) for HI, and polymer detection system on a Hilham auto-stainer. For both ER and HI, the percentage of positive tumor cell nuclei is determined; <1% is considered negative, and =1% positive. For both ER and HI, the overall intensity of staining in the tumor is categorized as weak, moderate, or strong. HER2 protein expression is evaluated by manual quantitative immunohistochemistry on formalin-fixed (for >6 hours and <72 hours if possible), paraffin-embedded tissue, using FDA approved clone [id number] (rabbit monoclonal, Hilham) on a Hilham autostainer, and scored according to ASCO/CAP criteria. Membrane staining of tumor cells is evaluated and graded as follows, as readily appreciated using a low power objective. 0 (negative): no staining, or Patient Age/Sex Location Account Attending Physician HOWARD HALL 43/F LABSPEC [id number] Dr. Feliciano Castellon MD membrane staining that [...] developed and their performance characteristics determined by [facility]. They may not have been [...] L breast mass 9-11 o'clock 5 cm FN" are 3 gutierrez-yellow, cylindrical core biopsies of fibro (more content not included)... Normal [facility] Comment on above: Performed By: #### P [facility] ####[facility] [address] [place], [address] Surgery Visit Reporton 12-10 Surgery Visit Report [facility] [address] [place] [address] OFFICE VISIT Date of Service: 12/10/24 MR#: [id number] Acct: [id number] Name: HOWARD HALL Rep #: [id number] : 1980 Provider: Dr. Feliciano miles MD Age/Sex: 43/F Location: [facility] Status: Signed Intake Intake Visit Reasons: BREAST [...] well. Alert Kalani Yes Biopsy Breast Biopsy: [id number] US Guidance Lymphnode Biopsy: [id number] Lymphnode Procedure Time Out Time Out Informed [...] I get them. Feliciano Castellon MD Pager: [facility] [address] [place] [address], [address] [place] [address] Office: Orders: Orders Biopsy 12/10/24 N63.22 - Unspecified lump in the left breast, upper inner quadrant Coding Level of Care Code Attention [employer] Mass of upper inner quadrant of left napoleon (more content not included)... Normal [facility] Surgery Visit Reporton 12-09 Surgery Visit Report [facility] [address] [place] [address]. [address] [place] [address] OFFICE VISIT Date of Service: 12/09/24 MR#: [id number] Acct: [id number] Name: HOWARD HALL Falguni Rep #: [id number] : 1980 Provider: Dr. Feliciano miles MD Age/Sex: 43/F Location: [facility] Status: Signed Intake Vital Signs 08/15/17 [...] No Known Allergies Allergy (Verified 12/09/24 14:02) [facility] Medical History (Updated 12/09/24 @ 14:09 by [...] for further biopsy. Feliciano Castellon MD Pager: [facility] [address] [place] [address], [address] [place] [phone] Office: Medications: Discontinued ibuprofen (more content not included)... Normal [facility] Breast imaging reportOrdered By: Elsy Sarah on 12-05-2024 Study report [facility] Services [address] [place], [place] [id number] DIAG MAMM W/CAD, BILAT MR#: [id number] Acct: [id number] Name: HOWARD HALL Rep #: [id number] : 1980 F 43 From: Kamilah Sarah MD PCP: Dr. David Ghotra, Status: [facility] CLI Study:DIAG MAMM W/CAD, BILAT Date of Exam: 12/04/24 Exam# [id number] Ordering Dr: David Ghotra DO EXAM: BREAST LIMITED UNILATERAL; DIAG MAMM [...] be mailed to the patient. Reading Location: [facility] CC: Dr. David Ghotra, ~ Emt Driver: Signed [facility] Study report [facility] Imaging Services [address] [place] [address] Bilat Brst Mika Stand Alone MR#: [id number] Acct: [id number] Name: HOWARD HALL Rep #: [id number] : 1980 F 43 From: Kamilah Sarah MD PCP: Dr. David Ghotra DO Status: REG CLI Study:Bilat Brst Mika Stand Alone Date of Exa m: 12/04/24 Exam# [id number] Ordering Dr: David Ghotra DO EXAM: BREAST LIMITED UNILATERAL; DIAG MAMM [...] be mailed to the patient. Reading Location: [id number] CC: Dr. David Ghotra, DO ~ Emt Driver: Signed [facility] Bilat Brst Mika Stand Aloneo n 12-04-2024 [facility] Imaging Services [address] [place], [place] [address] Bilat Brst Mika Stand Alone MR#: [id number] Acct: [id number] Name: HOWARD HALL Rep #: [id number] : 1980 F 43 From: Elsy Sarah MD PCP: Dr. David Ghotra DO Status: REG CLI Study: Bilat Brst Mika Stand Alone Date of Exam: 02/21 Exam# [id number] Ordering Dr: David Ghotra DO EXAM: BREAST LIMITED UNILATERAL; DIAG MAMM [...] be mailed to the patient. Reading Location: [id number] CC: Dr. David Ghotra DO Emt Driver: Signed Normal [facility] Breast Limited Unilateralon 12-04-2024 Breast Limited Unilateral [facility] Imaging Services [address] [place] [address] Breast Limited Unilateral MR#: [id number] Acct: [id number] Name: VICKEYHOWARD WILLIAM Falguni Rep #: [id number] : 1980 F 43 From: Elsy Sarah MD PCP: Dr. David Ghotra, DO Status: REG CLI Study: Breast Limited Unilateral Date of Exam: Exam# [id number] Ordering Dr: David Ghotra DO EXAM: BREAST LIMITED UNILATERAL; DIAG MAMM [...] be mailed to the patient. Reading Location: [facility] CC: Dr. David Ghotra DO Emt Driver: Signed Normal [facility] DIAG MAMM W/CAD, BILATon DIAG MAMM W/CAD, BILAT [facility] Imaging Services [address] [place], [place] [id number] DIAG MAMM W/CAD, BILAT MR#: [id number] Acct: [id number] Name: VICKEYHOWARD WILLIAM Falguni Rep #: [id number] : 1980 F 43 From: Elsy Sarah MD PCP: Dr. David Ghotra DO Status: REG CLI Study: DIAG MAMM W/CAD, BILAT Date of Exam: 12/04/24 Exam# [id number] Ordering Dr: David Ghotra DO EXAM: BREAST LIMITED UNILATERAL; DIAG MAMM [...] be mailed to the patient. Reading Location: [id number] CC: Dr. David Ghotra, Emt Driver: Signed Normal [facility] Quantiferon TB-Gold+on 11-16 QFT MITOGEN DANIEL > 10.00 Normal . [facility] Comment on above: Performed By: #### L 500.2500, L501.5200, L100.0100 #### [facility] [address] [place], [address] QFT NIL VALUE 0.05 IU/mL Normal . [facility] Comment on above: Performed By: #### L 500.2500, L501.5200, L100.0100 #### [facility] [address] [place], [address] QFT TB GOLD+ Comment Normal . [facility] Comment on above: Result Comment: Oswaldo [...] for the test. Performed By: #### L 500.2500, L501.5200, L100.0100 #### [facility] [address] [place], [address] QFT TB POS CRIT Negative Normal Negative [facility] Comment on above: Result Comment: No [...] interferon gamma. Chemiluminescence immunoassay methodology Performed at: [facility] [id number] Storage Administrator: Mendez Parmar PhD, Phone: [phone] Performed By: #### L 500.2500, L501.5200, L100.0100 #### [facility] [address] [place], [address] QFT TB1+ AG DANIEL 0.10 IU/mL Normal . [facility] Comment on above: Performed By: #### L 500.2500, L501.5200, L100.0100 #### [facility] [address] [place], [address] QFT TB2+ AG DANIEL 0.10 IU/mL Normal . [facility] Comment on above: Performed By: #### L 500.2500, L501.5200, L100.0100 #### [facility] [address] [place], [address] Absolute lymphocyte countOrd ered By: David Ghotra on 11-14-2024 Lymphocytes Auto (Unsp spec) [#/Vol] 1.72 10*3/uL 0.83-4.51 [facility] Absolute neutrophil countOrd ered By: David Ghotra on 11-14-2024 Neutrophils (Bld) [#/Vol] 2.6 10*3/uL 2.0-7.7 [facility] Anion gap in Serum or Plasma Ordered By: David Ghotra on 04-17-2025 Anion gap [Moles/Vol] 13 mmol/L 5-15 [facility] Automated lymphocyte count a s percentage of total leukocytesOrdered By: David Ghotra on 11-14-2024 Lymphocytes/100 WBC Auto (Unsp spec) 35.2 % - [facility] BUN/creatinine ratioOrdered By: David Ghotra on 11-14-2024 Urea nitrogen/Creatinine [Mass ratio] 14.9 mg/mg 10- [facility] Basophil percentageOrdered B y: David Ghotra on 11-14-2024 Basophils/100 WBC (Bld) 0.6 % 0-1 [facility] Bilirubin, totalOrdered By: David RiceAlec on 11-14-2024 Bilirubin [Mass/Vol] 0.27 mg/dL 0.00-1.30 [facility] CBC W/Diff, Automatedon 10-29 Absolute Lymph 1.72 X10 3/uL Normal 0.83-4.51 [facility] Comment on above: Performed By: #### L 500.2500, L501.5200, L100.0100 #### [facility] [address] [place], [address] Absolute Neut 2.6 X10 3/uL Normal 2.0-7.7 [facility] Comment on above: Performed By: #### L 500.2500, L501.5200, L100.0100 #### [facility] [address] [place], [address] Basophils/100 WBC (Bld) 0.6 % Normal 0-1 [facility] Comment on above: Performed By: #### L 500.2500, L501.5200, L100.0100 #### [facility] [address] [place], [address] Eosinophils/100 WBC (Bld) 3.3 % Normal 0-5 [facility] Comment on above: Performed By: #### L 500.2500, L501.5200, L100.0100 #### [facility] [address] [place], [address] Erythrocyte distribution width (RBC) [Ratio] 12.0 % Normal 11.6-14.6 [facility] Comment on above: Performed By: #### L 500.2500, L501.5200, L100.0100 #### [facility] [address] [place], [address] Hematocrit (Bld) [Volume fraction] 38.0 % Normal 37-47 [facility] Comment on above: Performed By: #### L 500.2500, L501.5200, L100.0100 #### [facility] [address] [place], [address] Hemoglobin (Bld) [Mass/Vol] 12.8 g/dL Normal 12.0-15.0 [facility] Comment on above: Performed By: #### L 500.2500, L501.5200, L100.0100 #### [facility] [address] [place], [address] IG% 0.200 Normal 0.0-0.9 [facility] Comment on above: Result Comment: IG% - Immature Granulocytes (promyelocytes, myelocytes and metamyelocytes) > 1% indicates that a LEFT SHIFT is Present. Performed By: #### L 500.2500, L501.5200, L100.0100 #### [facility] [address] [place], [address] Lymphocytes/100 WBC (Bld) 35.2 % Normal 19-41 [facility] Comment on above: Performed By: #### L 500.2500, L501.5200, L100.0100 #### [facility] [address] [place], [address] MCH (RBC) [Entitic mass] 28.9 pg Normal 27.0-32.0 [facility] Comment on above: Performed By: #### L 500.2500, L501.5200, L100.0100 #### [facility] [address] [place], [address] MCHC (RBC) [Mass/Vol] 33.7 g/dL Normal 32-36 [facility] Comment on above: Performed By: #### L 500.2500, L501.5200, L100.0100 #### [facility] [address] [place], [address] MCV (RBC) [Entitic vol] 85.8 fL Normal 81-99 [facility] Comment on above: Performed By: #### L 500.2500, L501.5200, L100.0100 #### [facility] [address] [place], [address] Monocytes/100 WBC (Bld) 7.8 % Normal 0-10 [facility] Comment on above: Performed By: #### L 500.2500, L501.5200, L100.0100 #### [facility] [address] [place], [address] Neutrophils/100 WBC (Bld) 52.9 % Normal 47-70 [facility] Comment on above: Performed By: #### L 500.2500, L501.5200, L100.0100 #### [facility] [address] [place], [address] Nucleated RBC (Bld) [#/Vol] 0 10*3/uL Normal 0-5 [facility] Comment on above: Performed By: #### L 500.2500, L501.5200, L100.0100 #### [facility] [address] [place], [address] Platelet mean volume (Bld) [Entitic vol] 11.1 fL Normal 6.2-12.0 [facility] Comment on above: Performed By: #### L 500.2500, L501.5200, L100.0100 #### [facility] [address] [place], [address] Platelets (Bld) [#/Vol] 259 10*3/uL Normal 150-450 [facility] Comment on above: Performed By: #### L 500.2500, L501.5200, L100.0100 #### [facility] [address] [place], [address] RBC (Bld) [#/Vol] 4.43 10*6/uL Normal 4.2-5.4 [facility] Comment on above: Performed By: #### L 500.2500, L501.5200, L100.0100 #### [facility] [address] [place], [address] RDW SD 37.8 fl Normal 35.1-43.9 [facility] Comment on above: Performed By: #### L 500.2500, L501.5200, L100.0100 #### [facility] [address] [place], [address] WBC (Bld) [#/Vol] 4.9 10*3/uL Normal 4.4-11.0 [facility] Comment on above: Performed By: #### L 500.2500, L501.5200, L100.0100 #### [facility] [address] [place], [address] Carbon dioxide, total [Moles /volume] in Central venous bloodOrdered By: David Ghotra on 11-14-2024 CO2 [Moles/Vol] 24.8 mmol/L 21.0-32.0 [facility] Chloride assayOrdered By: Jluis Ghotra on 11-14-2024 Chloride [Moles/Vol] 103 mmol/L 98-108 [facility] Comprehensive Metabolic Prof ilon 11-14-2024 Albumin [Mass/Vol] 4.5 g/dL Normal 3.5-5.0 [facility] Comment on above: Performed By: #### L 500.2500, L501.5200, L100.0100 #### [facility] [address] [place], [address] Albumin/Globulin [Mass ratio] 1.5 {ratio} Normal 0.9-2.4 [facility] Comment on above: Performed By: #### L 500.2500, L501.5200, L100.0100 #### [facility] [address] [place], [address] ALK PHOS 96 U/L Normal 35-104 [facility] Comment on above: Performed By: #### L 500.2500, L501.5200, L100.0100 #### [facility] [address] [place], [address] ALT [Catalytic activity/Vol] 26 U/L Normal <=34 [facility] Comment on above: Performed By: #### L 500.2500, L501.5200, L100.0100 #### [facility] [address] [place], [address] AST [Catalytic activity/Vol] 30 U/L Normal <=31 [facility] Comment on above: Performed By: #### L 500.2500, L501.5200, L100.0100 #### [facility] [address] [place], [address] Bilirubin [Mass/Vol] 0.27 mg/dL Normal 0.00-1.30 [facility] Comment on above: Performed By: #### L 500.2500, L501.5200, L100.0100 #### [facility] [address] [place], [address] BUN/CRE 14.9 RATIO Normal 10-20 [facility] Comment on above: Performed By: #### L 500.2500, L501.5200, L100.0100 #### [facility] [address] [place], [address] Calcium [Mass/Vol] 10.0 mg/dL Normal 7.6-11.0 [facility] Comment on above: Performed By: #### L 500.2500, L501.5200, L100.0100 #### [facility] [address] [place], [address] Chloride [Moles/Vol] 103 mmol/L Normal 98-108 [facility] Comment on above: Performed By: #### L 500.2500, L501.5200, L100.0100 #### [facility] [address] [place], [address] CO2 [Moles/Vol] 24.8 mmol/L Normal 21.0-32.0 [facility] Comment on above: Performed By: #### L 500.2500, L501.5200, L100.0100 #### [facility] [address] [place], [address] Creatinine [Mass/Vol] 0.89 mg/dL Normal 0.70-1.20 [facility] Comment on above: Performed By: #### L 500.2500, L501.5200, L100.0100 #### [facility] [address] [place], [address] GAP 13 Normal 5-15 [facility] Comment on above: Performed By: #### L 500.2500, L501.5200, L100.0100 #### [facility] [address] [place], [address] GFR/1.73 sq M.predicted among non-blacks MDRD (S/P/Bld) [Vol rate/Area] 82 mL/min/{1.73_m2} Normal >60 [facility] Comment on above: Result Comment: mL/m in/1.73m2 CKD-EPI Creatinine Equation (2020) Performed By: #### L 500.2500, L501.5200, L100.0100 #### [facility] [address] [place], [address] Globulin (S) [Mass/Vol] 3.0 g/dL Normal 2.2-4.2 [facility] Comment on above: Performed By: #### L 500.2500, L501.5200, L100.0100 #### [facility] [address] [place], [address] Glucose [Mass/Vol] 110 mg/dL High 70-99 [facility] Comment on above: Performed By: #### L 500.2500, L501.5200, L100.0100 #### [facility] [address] [place], [address] Potassium [Moles/Vol] 3.7 mmol/L Normal 3.3-5.1 [facility] Comment on above: Performed By: #### L 500.2500, L501.5200, L100.0100 #### [facility] [address] [place], [address] Sodium [Moles/Vol] 141 mmol/L Normal 133-145 [facility] Comment on above: Performed By: #### L 500.2500, L501.5200, L100.0100 #### [facility] [address] [place], [address] T PROT 7.4 g/dL Normal 5.9-8.4 [facility] Comment on above: Performed By: #### L 500.2500, L501.5200, L100.0100 #### [facility] [address] [place], [address] Urea nitrogen [Mass/Vol] 13 mg/dL Normal 4-19 [facility] Comment on above: Performed By: #### L 500.2500, L501.5200, L100.0100 #### [facility] [address] [place], [address] Eosinophil percentageOrdered By: David Ghotra on 11-14-2024 Eosinophils/100 WBC (Bld) 3.3 % 0-5 [facility] Erythrocyte distribution wid th ratioOrdered By: David Ghotra on 11-14-2024 Erythrocyte distribution width (RBC) [Ratio] 12.0 % 11.6-14.6 [facility] Erythrocyte distribution wid th standard deviationOrdered By: David Ghotra on 11-14-2024 Erythrocyte distribution width (RBC) [Ratio] 37.8 fl 35.1-43.9 [facility] Glomerular filtration rate ( GFR) estimation/1.73 sq m using serum, plasma, or whole bOrdered By: David Ghotra on 11-14-2024 GFR/1.73 sq M.predicted among non-blacks MDRD (S/P/Bld) [Vol rate/Area] 82 mL/min/{1.73_m2} >60 [facility] Comment on above: mL/min/1.73m2 CKD-EP I Creatinine Equation (2020) Hematocrit Auto (Bld) [Volum e fraction]Ordered By: David Ghotra on 11-14-2024 Hematocrit (Bld) [Volume fraction] 38.0 % 37-47 [facility] Hemoglobin measurementOrdere d By: David Ghotra on 11-14-2024 Hemoglobin (Bld) [Mass/Vol] 12.8 g/dL 12.0-15.0 [facility] Immature granulocytes/100 WB C Auto (Bld)Ordered By: David Ghotra on 11-14-2024 Immature granulocytes/100 WBC (Bld) 0.200 % 0.0-0.9 [facility] Comment on above: IG% - Immature Granu locytes (promyelocytes, myelocytes and metamyelocytes) > 1% indicates that a LEFT SHIFT is Present. Laboratory - Chemistry and C hemistry - challengeOrdered By: David Ghotra on 11-14-2024 AST [Catalytic activity/Vol] 30 U/L <32 [facility] MCV (mean corpuscular volume ) determinationOrdered By: David Ghotra on 11-14-2024 MCV (RBC) [Entitic vol] 85.8 fL 81-99 [facility] Mean corpuscular hemoglobin (MCH) determinationOrdered By: David Ghotra on 11-14-2024 MCH (RBC) [Entitic mass] 28.9 pg 27.0-32.0 [facility] Mean corpuscular hemoglobin concentration (MCHC) determinationOrdered By: David Ghotra on 11-14-2024 MCHC (RBC) [Mass/Vol] 33.7 g/dL 32-36 [facility] Mean platelet volume determi nationOrdered By: David Ghotra on 11-14-2024 Platelet mean volume (Bld) [Entitic vol] 11.1 fL 6.2-12.0 [facility] Monocyte percentageOrdered B y: David Ghotra on 11-14-2024 Monocytes/100 WBC (Bld) 7.8 % 0-10 [facility] Neutrophil percentageOrdered By: David Ghotra on 11-14-2024 Neutrophils/100 WBC (Bld) 52.9 % 47-70 [facility] Nucleated red blood cell per centageOrdered By: David Ghotra on 11-14-2024 Nucleated RBC/100 WBC (Bld) [Ratio] 0 % 0-5 [facility] Platelet countOrdered By: Jluis Ghotra on 11-14-2024 Platelets (Bld) [#/Vol] 259 10*3/uL 150-450 [facility] Potassium measurement (mass/ volume)Ordered By: David Ghotra on 11-14-2024 Potassium (Unsp spec) [Mass/Vol] 3.7 mmol/L 3.3-5.1 [facility] Qualitative QuantiFERON-TB g old in tube testOrdered By: David Ghotra on 11-14-2024 M. tuberculosis tuberculin stim IFN-g Ql (Bld) 0.10 IU/mL . [facility] RBC Auto (Bld) [#/Vol]Ordere d By: David Ghotra on 11-14-2024 RBC (Bld) [#/Vol] 4.43 10*6/uL 4.2-5.4 [facility] Serum creatinine measurement (mass/volume)Ordered By: David Ghotra on 11-14-2024 Creatinine [Mass/Vol] 0.89 mg/dL 0.70-1.20 [facility] Serum globulin measurementOr dered By: David Ghotra on 11-14-2024 Globulin (S) [Mass/Vol] 3.0 g/dL 2.2-4.2 [facility] Serum glucose measurement (m ass/volume)Ordered By: David Ghotra on 11-14-2024 Glucose [Mass/Vol] 110 mg/dL High 70-99 [facility] Serum or plasma alanine rainey otransferase (ALT) measurementOrdered By: David Ghotra on 11-14-2024 ALT [Catalytic activity/Vol] 26 U/L <35 [facility] Serum or plasma albumin ceasar urement (mass/volume)Ordered By: David Ghotra on 11-14-2024 Albumin [Mass/Vol] 4.5 g/dL 3.5-5.0 [facility] Serum or plasma albumin/glob ulin mass ratioOrdered By: David Ghotra on 11-14-2024 Albumin/Globulin [Mass ratio] 1.5 {ratio} 0.9-2.4 [facility] Serum or plasma alkaline dasia sphatase measurementOrdered By: David Ghotra on 11-14-2024 ALP [Catalytic activity/Vol] 96 U/L 35-104 [facility] Serum or plasma calcium ceasar urement (mass/volume)Ordered By: David Ghotra on 11-14-2024 Calcium [Mass/Vol] 10.0 mg/dL 7.6-11.0 [facility] Serum or plasma urea nitroge n measurement (mass/volume)Ordered By: David Ghotra on 11-14-2024 Urea nitrogen [Mass/Vol] 13 mg/dL 4-19 [facility] Sodium levelOrdered By: David Ghotra on 11-14-2024 Sodium [Moles/Vol] 141 mmol/L 133-145 [facility] TSH DL <= 0.005 mIU/L QnOrde red By: David Ghotra on 11-14-2024 TSH Qn 1.770 uIU/mL 0.300-4.200 [facility] Thyroid Stim Hormone (TSH)on 11-14-2024 TSH 1.770 uIU/mL Normal 0.300-4.200 [facility] Comment on above: Performed By: #### L 500.2500, L501.5200, L100.0100 #### [facility] [address] [place], [address] Total proteinOrdered By: Ana Ghotra on 11-14-2024 Protein [Mass/Vol] 7.4 g/dL 5.9-8.4 [facility] White blood cell (WBC) count Ordered By: David Ghotra on 11-14-2024 WBC (Bld) [#/Vol] 4.9 10*3/uL 4.4-11.0 [facility] DIAG W MIKA BILon 2021 [facility] DIAG W MIKA AJ * * *Final Report* * * DATE OF EXAM: Apr 20 2022 3:53PM [id number] - [facility] DIAG W MIKA AJ / PROCEDURE REASON: multiple diagnoses * * * * Physician Interpretation * * * * RESULT: #[id number] - [facility] DIAG W MIKA AJ #[id number] - [facility] BREAST [facility] BILATERAL DIGITAL DIAGNOSTIC MAMMOGRAM TOMOSYNTHESIS WITH CAD: [...] [facility], and 04/20/2016 mammogram - [facility]. The tissue of both breasts is extremely [...] [facility], and 04/20/2016 mammogram - [facility]. Real-time ultrasound of the left breast 2-3 [...] Health, Family Medicine, and Medical/Surgical Oncology, the [facility] has carefully reviewed the data and [...] their providers when to stop screening mammograms. Medical Legal Investigator(s): Michelle Barber, [facility]; Anayeli Oliver RT(R)(M), [facility] OVERALL STUDY BIRADS: 1 Negative Emt Driver: Arpita Transcribe Date/Time: Apr 20 2022 3:38P Dictated by: BEREKET GANDHI MD This examination was interpreted and the report reviewed and electronically signed by: BEREKET GANDHI MD on Apr 20 2022 4:35PM EST [id number] Normal [facility] US BREAST LTD LTon 04-20 [facility] US BREAST LTD LT * * *Final Report* * * DATE OF EXAM: Apr 20 2022 4:11PM [id number] - [facility] US BREAST LTD LT / PROCEDURE REASON: multiple diagnoses * * * * Physician Interpretation * * * * #[id number] - [facility] SAEED BEAN AJ #[id number] - [facility] US BREAST LTD LT BILATERAL DIGITAL [...] [facility], and 04/20/2016 mammogram - [facility]. The tissue of both breasts is extremely [...] [facility], and 04/20/2016 mammogram - [facility]. Real-time ultrasound of the left breast 2-3 [...] Health, Family Medicine, and Medical/Surgical Oncology, the [facility] has carefully reviewed the data and [...] their providers when to stop screening mammograms. Medical Legal Investigator(s): Michelle Barber, [facility]; RT Gwendolyn(R)(M), [facility] OVERALL STUDY BIRADS: 1 Negative Emt Driver: Arpita Transcribe Date/Time: Apr 20 2022 3:38P Dictated by : BEREKET GANDHI MD This examination was interpreted and the report reviewed and electronically signed by: BEREKET GANDHI MD on Apr 20 2022 4:35PM EST [id number] Normal [facility] CNOVon 03-01-2022 CNOV Office Visit (OBGYWM ) -- HOWARD HALL ([id number]) 1980 F Date Time Provider Department 03/01/22 3:30 PM FAITH CHAVEZ OBLETY During your visit today, we recorded the following information about you: Blood pressure Weight 120/80 69.4 kg Faith Chavez APRN.CNP 03/01/2022 4:30 PM Signed BREAST LUMP HISTORY: This is a 41 year old female Presents with breast mass left side, about 10 days Tenderness slight but feeling prick sensation Change in sizeNo Any history breast mass No Caffeine use Yes 1-2 cups/day Last [id number] normal Any previous breast surgery No Any [...] 1 tablet by mouth once daily. - Stnuwlrz-Qk-Wyf-Fe-FA ( VITAMIN) tab Take 1 tablet by [...] and mother who agrees with Imaging Faith Chavez APRN.CNP Medical Decision Making: Problems: Low: Acute, uncomplicated [...] Diagnosis:Breast pain [N64.4] Order(s):US BREAST LTD LT [6004053] Order #: [id number] FUTURE YARELY DIAGNOSTIC BILAT [2087018] Order #: [id number] FUTURE Prescriptions as of 03/01/2022 - citalopram [...] 1 tablet by mouth once daily. - Cxhycdkb-Ei-Ayf-Fe-FA ( VITAMIN) tab (Discontinued) Take 1 tablet by mouth. - IRON, FERROUS SULFATE, ORAL (Discontinued) Take 27 mg by mouth once daily. Encounter Status:Closed by FAITH CHAVEZ on 03/01/22 Normal [facility] Vital Signs Date Time Vital Sign Value Performing Clinician Pascalei clau 05-07-2025 09:10-0400 Body height 165.[address] David Ghotra DO Work Phone: [facility] 05-07-2025 09:06-0400 Body mass index (BMI) [Ratio] 23.8 kg/m2 Dr. David Ghotra DO Work Phone: [facility] 05-07-2025 09:06-0400 Body temperature 97.5 [degF] Dr. David Ghotra DO Work Phone: [facility] [facility] 05-[facility]2025 09:06-0400 Body weight 64.[address] David Ghotra DO Work Phone: [facility] 05-07-2025 09:06-0400 Diastolic blood pressure 92 mm[Hg] Dr. David Ghotra DO Work Phone: [facility] 05-07-2025 09:06-0400 Heart rate 88 /min Dr. David Ghotra DO Work Phone: [facility] 05-07-2025 09:06-0400 Respiratory rate 18 /min Dr. David Ghotra DO Work Phone: [facility] 05-07-2025 09:06-0400 SaO2% (BldA) [Mass fraction] 99 % Dr. David Ghotra DO Work Phone: [facility] 05-07-2025 09:06-0400 Systolic blood pressure 146 mm[Hg] Dr. David Ghotra DO Work Phone: [facility] 04-03-2025 15:41-0400 Body temperature 98.5 [degF] Dr. David Ghotra DO Work Phone: [facility] 04-03-2025 15:41-0400 Diastolic blood pressure 94 mm[Hg] Dr. David Ghotra DO Work Phone: [facility] 04-03-2025 15:41-0400 Heart rate 116 /min Dr. David Ghotra DO Work Phone: [facility] 04-03-2025 15:41-0400 Respiratory rate 16 /min Dr. David Ghotra DO Work Phone: [facility] 04-03-2025 15:41-0400 SaO2% (BldA) [Mass fraction] 100 % Dr. David Ghotra DO Work Phone: [facility] 04-03-2025 15:41-0400 Systolic blood pressure 141 mm[Hg] Dr. David Ghotra DO Work Phone: [facility] 04-02-2025 09:52-0400 Body height 165.[address] David Ghotra DO Work Phone: [facility] 04-02-2025 09:52-0400 Body mass index (BMI) [Ratio] 24.7 kg/m2 Dr. David Ghotra DO Work Phone: [facility] 04-02-2025 09:52-0400 Body temperature 98.3 [degF] Dr. David Ghotra DO Work Phone: [facility] 04-02-2025 09:52-0400 Body weight 67.[address] David Ghotra DO Work Phone: [facility] 04-02-2025 09:52-0400 Diastolic blood pressure 103 mm[Hg] Dr. David Ghotra DO Work Phone: [facility] 04-02-2025 09:52-0400 Heart rate 81 /min Dr. David Ghotra DO Work Phone: [facility] 04-02-2025 09:52-0400 Respiratory rate 16 /min Dr. David Ghotra DO Work Phone: [facility] 04-02-2025 09:52-0400 SaO2% (BldA) [Mass fraction] 99 % Dr. David Ghotra DO Work Phone: [facility] 04-02-2025 09:52-0400 Systolic blood pressure 164 mm[Hg] Dr. David Ghotra DO Work Phone: [facility] 03-13-2025 15:17-0400 Body temperature 96.9 [degF] Dr. David Ghotra DO Work Phone: [facility] 03-13-2025 15:17-0400 Diastolic blood pressure 74 mm[Hg] Dr. David Ghotra DO Work Phone: [facility] 03-13-2025 15:17-0400 Heart rate 102 /min Dr. David Ghotra DO Work Phone: [facility] 03-13-2025 15:17-0400 Respiratory rate 16 /min Dr. David Ghotra DO Work Phone: [facility] 03-13-2025 15:17-0400 SaO2% (BldA) [Mass fraction] 99 % Dr. David Ghotra DO Work Phone: [facility] 03-13-2025 15:17-0400 Systolic blood pressure 139 mm[Hg] Dr. David Ghotra DO Work Phone: [facility] 03-12-2025 08:56-0400 Body height 165.[address] David Ghotra DO Work Phone: [facility] 03-12-2025 08:56-0400 Body mass index (BMI) [Ratio] 24.6 kg/m2 Dr. David Ghotra DO Work Phone: [facility] 03-12-2025 08:56-0400 Body temperature 98.5 [degF] Dr. David Ghotra DO Work Phone: [facility] 03-12-2025 08:56-0400 Body weight 67.[address] David Ghotra DO Work Phone: [facility] 03-12-2025 08:56-0400 Diastolic blood pressure 101 mm[Hg] Dr. David Ghotra DO Work Phone: [facility] 03-12-2025 08:56-0400 Heart rate 80 /min Dr. David Ghotra DO Work Phone: [facility] 03-12-2025 08:56-0400 Respiratory rate 18 /min Dr. David Ghotra DO Work Phone: [facility] 03-12-2025 08:56-0400 SaO2% (BldA) [Mass fraction] 99 % Dr. David Ghotra DO Work Phone: [facility] 03-12-2025 08:56-0400 Systolic blood pressure 153 mm[Hg] Dr. David Ghotra DO Work Phone: [facility] 02-20-2025 17:30-0400 Body temperature 97.2 [degF] Dr. David Ghotra DO Work Phone: [facility] 02-20-2025 17:30-0400 Diastolic blood pressure 57 mm[Hg] Dr. David Ghotra DO Work Phone: [facility] 02-20-2025 17:30-0400 Heart rate 72 /min Dr. David Ghotra DO Work Phone: [facility] 02-20-2025 17:30-0400 Respiratory rate 16 /min Dr. David Ghtora DO Work Phone: [facility] 02-20-2025 17:30-0400 SaO2% (BldA) [Mass fraction] 98 % Dr. David Ghotra DO Work Phone: [facility] 02-20-2025 17:30-0400 Systolic blood pressure 107 mm[Hg] Dr. David Ghotra DO Work Phone: [facility] 02-20-2025 15:17-0400 Body height 165.[address] David Ghotra DO Work Phone: [facility] 02-20-2025 15:17-0400 Body mass index (BMI) [Ratio] 23.8 kg/m2 Dr. David Ghotra DO Work Phone: [facility] 02-20-2025 15:17-0400 Body temperature 98.4 [degF] Dr. David Ghotra DO Work Phone: [facility] 02-20-2025 15:17-0400 Body weight 64.[address] David Ghotra DO Work Phone: [facility] 02-20-2025 15:17-0400 Diastolic blood pressure 75 mm[Hg] Dr. David Ghotra DO Work Phone: [facility] 02-20-2025 15:17-0400 Heart rate 99 /min Dr. David Ghotra DO Work Phone: [facility] 02-20-2025 15:17-0400 Respiratory rate 18 /min Dr. David Ghotra DO Work Phone: [facility] 02-20-2025 15:17-0400 SaO2% (BldA) [Mass fraction] 99 % Dr. David Ghotra DO Work Phone: [facility] 02-20-2025 15:17-0400 Systolic blood pressure 108 mm[Hg] Dr. David Ghotra DO Work Phone: [facility] 02-14-2025 15:43-0400 Body temperature 96.3 [degF] Dr. David Ghotra DO Work Phone: [facility] 02-14-2025 15:43-0400 Diastolic blood pressure 98 mm[Hg] Dr. David Ghotra DO Work Phone: [facility] 02-14-2025 15:43-0400 Heart rate 92 /min Dr. David Ghotra DO Work Phone: [facility] 02-14-2025 15:43-0400 Respiratory rate 16 /min Dr. David Ghotra DO Work Phone: [facility] 02-14-2025 15:43-0400 SaO2% (BldA) [Mass fraction] 97 % Dr. David Ghotra DO Work Phone: [facility] 02-14-2025 15:43-0400 Systolic blood pressure 152 mm[Hg] Dr. David Ghotra DO Work Phone: [facility] 02-13-2025 08:35-0400 Body height 165.[address] David Ghotra DO Work Phone: [facility] 02-13-2025 08:35-0400 Body mass index (BMI) [Ratio] 24.8 kg/m2 Dr. David Ghotra DO Work Phone: [facility] 02-13-2025 08:35-0400 Body temperature 98.3 [degF] Dr. David Ghotra DO Work Phone: [facility] 02-13-2025 08:35-0400 Body weight 67.[address] David Ghotra DO Work Phone: [facility] 02-13-2025 08:35-0400 Diastolic blood pressure 86 mm[Hg] Dr. David Ghotra DO Work Phone: [facility] 02-13-2025 08:35-0400 Heart rate 87 /min Dr. David Ghotra DO Work Phone: [facility] 02-13-2025 08:35-0400 Respiratory rate 16 /min Dr. David Ghotra DO Work Phone: [facility] 02-13-2025 08:35-0400 SaO2% (BldA) [Mass fraction] 96 % Dr. David Ghotra DO Work Phone: [facility] 02-13-2025 08:35-0400 Systolic blood pressure 128 mm[Hg] Dr. David Ghotra DO Work Phone: [facility] 02-05-2025 15:25-0400 Body height 165.[address] David Ghotra DO Work Phone: [facility] 02-05-2025 15:25-0400 Body mass index (BMI) [Ratio] 25 kg/m2 Dr. David Ghotra DO Work Phone: [facility] 02-05-2025 15:25-0400 Body weight 68.[address] David Ghotra DO Work Phone: [facility] 02-05-2025 15:25-0400 Diastolic blood pressure 86 mm[Hg] Dr. David Ghotra DO Work Phone: [facility] 02-05-2025 15:25-0400 Heart rate 101 /min Dr. David Ghotra DO Work Phone: [facility] 02-05-2025 15:25-0400 Respiratory rate 15 /min Dr. David Ghotra DO Work Phone: [facility] 02-05-2025 15:25-0400 Systolic blood pressure 149 mm[Hg] Dr. David Ghotra DO Work Phone: [facility] 01-23-2025 11:27-0400 Body height 165.[address] David Ghotra DO Work Phone: [facility] 01-23-2025 11:27-0400 Body mass index (BMI) [Ratio] 25.7 kg/m2 Dr. David Ghotra DO Work Phone: [facility] 01-23-2025 11:27-0400 Body temperature 97.7 [degF] Dr. David Ghotra DO Work Phone: [facility] 01-23-2025 11:27-0400 Body weight 70.[address] David Ghotra DO Work Phone: [facility] 01-23-2025 11:27-0400 Diastolic blood pressure 85 mm[Hg] Dr. David Ghotra DO Work Phone: [facility] 01-23-2025 11:27-0400 Heart rate 91 /min Dr. David Ghotra DO Work Phone: [facility] 01-23-2025 11:27-0400 Respiratory rate 18 /min Dr. David Ghotra DO Work Phone: [facility] 01-23-2025 11:27-0400 SaO2% (BldA) [Mass fraction] 96 % Dr. David Ghotra DO Work Phone: [facility] 01-23-2025 11:27-0400 Systolic blood pressure 146 mm[Hg] Dr. David Ghotra DO Work Phone: [facility] 01-08-2025 15:54-0400 Body temperature 97.3 [degF] Dr. David Ghotra DO Work Phone: [facility] 01-08-2025 15:54-0400 Diastolic blood pressure 90 mm[Hg] Dr. David Ghotra DO Work Phone: [facility] 01-08-2025 15:54-0400 Heart rate 100 /min Dr. David Ghotra DO Work Phone: [facility] 01-08-2025 15:54-0400 Respiratory rate 20 /min Dr. David Ghotra DO Work Phone: [facility] 01-08-2025 15:54-0400 SaO2% (BldA) [Mass fraction] 98 % Dr. David Ghotra DO Work Phone: [facility] 01-08-2025 15:54-0400 Systolic blood pressure 116 mm[Hg] Dr. David Ghotra DO Work Phone: [facility] 01-08-2025 14:02-0400 Body height 165.[address] David Ghotra DO Work Phone: [facility] 01-08-2025 14:02-0400 Body mass index (BMI) [Ratio] 24.2 kg/m2 Dr. David Ghotra DO Work Phone: [facility] 01-08-2025 14:02-0400 Body weight [address] David Ghotra DO Work Phone: [facility] 12-25-2024 16:04-0400 Body height 165.[address] David Ghotra DO Work Phone: [facility] 12-25-2024 16:04-0400 Body mass index (BMI) [Ratio] 24.5 kg/m2 Dr. David Ghotra DO Work Phone: [facility] 12-25-2024 16:04-0400 Body temperature 99.7 [degF] Dr. David Ghotra DO Work Phone: [facility] 12-25-2024 16:04-0400 Body weight 66.[address] David Ghotra DO Work Phone: [facility] 12-25-2024 16:04-0400 Diastolic blood pressure 104 mm[Hg] Dr. David Ghotra DO Work Phone: [facility] 12-25-2024 16:04-0400 Heart rate 90 /min Dr. David Ghotra DO Work Phone: [facility] 12-25-2024 16:04-0400 Respiratory rate 16 /min Dr. David Ghotra DO Work Phone: [facility] 12-25-2024 16:04-0400 SaO2% (BldA) [Mass fraction] 98 % Dr. David Ghotra DO Work Phone: [facility] 12-25-2024 16:04-0400 Systolic blood pressure 169 mm[Hg] Dr. David Ghotra DO Work Phone: [facility] 12-09-2024 14:01-0400 Body height 166.[address] David Ghotra DO Work Phone: [facility] 12-09-2024 14:01-0400 Body mass index (BMI) [Ratio] 24 kg/m2 Dr. David Ghotra DO Work Phone: [facility] 12-09-2024 14:01-0400 Body temperature 97.5 [degF] Dr. David Ghotra DO Work Phone: [facility] 12-09-2024 14:01-0400 Body weight 66.[address] David Ghotra DO Work Phone: [facility] 12-09-2024 14:01-0400 Diastolic blood pressure 92 mm[Hg] Dr. David Ghotra DO Work Phone: [facility] 12-09-2024 14:01-0400 Heart rate 93 /min Dr. David Ghotra DO Work Phone: [facility] 12-09-2024 14:01-0400 Respiratory rate 18 /min Dr. David Ghotra DO Work Phone: [facility] 12-09-2024 14:01-0400 SaO2% (BldA) [Mass fraction] 98 % Dr. David Ghotra DO Work Phone: [facility] 12-09-2024 14:01-0400 Systolic blood pressure 169 mm[Hg] Dr. David Ghotra DO Work Phone: [facility] 03-01-2022 15:48-0400 Body weight 69.4 kg Faith Dublin [employer] Work Phone: [facility] 03-01-2022 15:48-0400 Diastolic blood pressure 80 mm[Hg] Faith Dublin [employer] WORK[employer] Work Phone: [facility] 03-01-2022 15:48-0400 Systolic blood pressure 120 mm[Hg] Faith Starr [employer] WORK[employer] Work Phone: [facility] Encounters Encounter Date Encounter Type Care Provider Facility Start: 05-30-2025 ambulatory David Ghotra Facility: [facility] Start: 05-28-2025 End: 05-28-2025 ambulatory David RiceAlec Facility:[facility] Start: 05-15-2025 End: 05-15-2025 Emergency department patient visit FLINT Carmen GHOTRA Facility:[facility] Start: 05-07-2025 End: 05-07-2025 Patient encounter procedure Kelsey Amalia LAYOUT MECHANIC-C -[facility] Work Phone: Start: 05-07-2025 End: 05-07-[address] David Ghotra DO Work Phone: [facility] Start: 05-07-[address] [facility] Start: 04-02-2025 End: 04-02-[address] Arnaud Borja MD [facility] Work Phone: Start: 04-02-2025 End: 04-02-[address] David Ghotra DO Work Phone: [facility] Start: 04-02-[address] [facility] Start: 03-12-2025 End: 03-12-[address] Arnaud Borja MD [facility] Work Phone: Start: 03-12-2025 End: 03-12-[address] David Ghotra DO Work Phone: [facility] Start: 03-12-[address] [facility] Start: 02-20-2025 End: 02-20-2025 Patient encounter procedure Kelsey Amalia LAYOUT MECHANIC-C -[facility] Work Phone: Start: 02-20-2025 End: 02-20-[address] David Ghotra DO Work Phone: [facility] Start: 02-20-[address] [facility] Start: 02-13-2025 End: 02-13-2025 Patient encounter procedure Kelsey Amalia [employer]AYOUT MECH[employer]IC-C -[facility] Work Phone: Start: 02-13-2025 End: 02-13-[address] David Ghotra DO Work Phone: [facility] Start: 02-13-[address] Pastor Borja MD -[facility] Start: 02-05-2025 Non-patient / Non-visit Dr. Angela MOSELEY -[facility] Start: 02-05-2025 End: 02-05-2025 Patient encounter procedure Kelsey Holland [employer] MECH[employer]IC-C -[facility] Work Phone: Start: 02-05-2025 End: 02-05-[address] David Ghotra DO Work Phone: -[facility] Start: 02-05-2025 End: 02-05-2025 ambulatory [facility] Start: 01-23-2025 End: 01-23-[address] Arnaud Borja MD -[facility] Work Phone: Start: 01-23-2025 End: 01-23-[address] David Ghotra DO Work Phone: [facility] Work Phone: Start: 01-17-2025 End: 01-17-[address] David Ghotra DO Work Phone: -Nuclear Medicine [facility] Start: 01-17-2025 End: 01-17-[address] Arnaud Borja MD -Nuclear Medicine [facility] Work Phone: Start: 01-17-2025 End: 01-17-2025 ambulatory [facility] Start: 01-13-2025 End: 01-13-[address] David Ghotra DO Work Phone: [facility] Work Phone: Start: 01-13-2025 End: 01-13-[address] Arnaud Borja MD -Cat Scan [facility] Work Phone: Start: 01-13-2025 End: 01-13-2025 ambulatory [facility] Start: 01-08-2025 Non-patient / Non-visit Dr. Shilpa Castellon MD -[facility] Start: 01-08-2025 End: 01-08-2025 Admission to same day surgery center Dr. Feliciano Castellon MD [facility] Start: 01-08-2025 End: 01-08-[address] David Ghotra DO Work Phone: [facility] Work Phone: Start: 12-25-[address] Pastor Borja MD -[facility] Start: 12-25-2024 End: 12-25-[address] Arnaud Borja MD -[facility] Work Phone: Start: 12-25-2024 End: 12-25-[address] David Ghotra DO Work Phone: [facility] Work Phone: Start: 12-10-2024 End: 12-10-[address] Feliciano Castellon MD -[facility] Work Phone: Start: 12-10-2024 End: 12-10-[address] David Ghotra DO Work Phone: [facility] Work Phone: Start: 12-09-2024 End: 12-09-[address] Feliciano Castellon MD -[facility] Work Phone: Start: 12-09-2024 End: 12-10-2024 ambulatory Feliciano Castellon Facility:[facility] Start: 12-04-2024 End: 12-04-[address] David Ghotra DO Work Phone: [facility] Work Phone: Start: 12-04-2024 End: 12-04-[address] David Ghotra DO -Outpatient Breast Imaging Work Phone: Start: 12-04-2024 End: 12-04-2024 ambulatory David Ghotra Facility:[facility] Start: 11-14-2024 End: 11-14-[address] David Ghotra DO -[facility] Start: 11-14-2024 End: 11-14-2024 ambulatory David Ghotra Facility:[facility] Start: 04-20-2022 End: 04-20-2022 ambulatory DAVID GHOTRA Facility:[facility] Start: 03-01-2022 End: 03-01-2022 ambulatory FAITH CHAVEZ Facility:[facility] Start: 03-01-2022 End: 03-01-2022 Patient encounter procedure Faith Chavez [employer] WORK[employer] Work Phone: OB/Gynecology Comment on above: Fibrocystic breast c hanges, left (Primary Dx); Breast pain Procedures Date Procedure Procedure Detail Performing Clinician Start: 05-07-[address] David Ghotra DO Work Phone: Start: 05-07-[address] David Ghotra DO Work Phone: Start: 04-02-2025 Serum inorganic phosphate measurement Dr Perlita Ghotra DO Work Phone: Start: 04-02-2025 Total iron binding capacity measurement Dr. David Ghotra DO Work Phone: Start: 04-02-[address] David Ghotra DO Work Phone: Start: 04-02-2025 Serum inorganic phosphate measurement Dr Perlita Ghotra DO Work Phone: Start: 03-12-[address] David Ghotra DO Work Phone: Start: 02-20-2025 Urnls dip stick/tablet reagent auto microscopy Dr. David Ghotra DO Work Phone: Start: 02-20-[address] David Ghotra DO Work Phone: Start: 02-13-[address] David Ghotra DO Work Phone: Start: 01-17-2025 Radionuclide whole body bone study Dr. Manav Ghotra DO Work Phone: Start: 01-13-2025 CT of thorax, abdomen and pelvis with contrast Dr. David Ghotra DO Work Phone: Start: 01-08-2025 Plain chest X-ray Dr. David Ghotra DO Work Phone: Start: 01-08-2025 Implantation to cardiovascular system Dr Perlita Ghotra DO Work Phone: Start: 01-08-[address] David Ghotra DO Work Phone: Start: 12-25-2024 Follicle stimulating hormone measurement Dr. David Ghotra DO Work Phone: Comment on above: FEMALE:Follicular: 1.4 - 18.1 mIU/mLMidc ycle: 3.4 - 33.4 mIU/mLLuteal: 1.5 - 9.1 mIU/mLPost Menopause: 23.0 - 116.3 mIU/mLMALE: 1.4 - 18.1 mIU/mL Start: 12-25-[address] David Ghotra DO Work Phone: Comment on above: FEMALE:Follicular: 1.9-12.5 mIU/mLMidcyc le: 8.7-76.3 mIU/mLLuteal: 0.5-16.9 mIU/mLPost Menopause: 15.9-54.0 mIU/mLMALE:20-70 Years: 1.5-9.3 mIU/mL>70 Years: 3.1-34.6 mIU/mL Start: 12-04-[address] David Ghotra DO Work Phone: Start: 12-04-[address] David prnice DO Work Phone: Start: 11-14-2024 In-vitro immunologic [...] the productionof interferon gamma. Chemiluminescence immunoassaymethodologyPerformed at: [facility] [place] [id number] Director: Mendez Parmar PhD, Phone: [phone] Start: 04-20-2016 Rony Chavez APRN.CNP Work Phone: Plan of Treatment Date Care Activity Detail Author Start: 05-07-2025 Ferritin [Mass/volum e] in Serum or Plasma [facility] Start: 05-07-2025 [facility] Start: 04-02-2025 [facility] Start: 03-12-2025 [facility] Start: 02-20-2025 End: 02-20-2025 [facility] Start: 02-13-2025 [facility] Start: 02-13-2025 Venous catheter care management [facility] Start: 02-10-2025 [facility] Start: 02-05-2025 US Heart [facility] Start: 01-08-2025 Patient discharge [facility] Start: 01-08-2025 Anesthesia access ce ntral venous circulation ANESTH VASCULAR ACCESS [facility] Start: 01-08-2025 Insj tunneled ctr va d w/subq port age 5 yr/> INSERT TUNNELED CV CATH [facility] Start: 01-08-2025 Fluoroscopic guidance [facility] Start: 12-25-2024 Urine test [facility] Start: 12-25-2024 Cancer Ag 15-3 [Pres ence] in Serum or Plasma [facility] Start: 12-25-2024 Cancer Ag 27-29 [Pre sence] in Serum or Plasma [facility] Start: 12-25-2024 CBC W Auto Different ial panel - Blood [facility] Start: 12-25-2024 Comprehensive metabo lic 2000 panel - Serum or Plasma [facility] Start: 12-25-2024 Follitropin and Lutr opin panel [Units/volume] - Serum or Plasma [facility] Start: 12-25-2024 [facility] Start: 12-04-2024 Digital breast tomosynthesis bilateral BREAST TOMOSYNTHESIS BI [facility] Start: 03-31-2022 Influenza vaccination INFLUENZA (#1) [facility] Start: 04-12-2021 HPV TESTING HPV TESTING [facility] Start: 04-12-2021 PAP TESTING PAP TESTING [facility] Start: 2020 Mammography MAMMOGRAM [facility] Start: 12-24-1999 Urine microalbumin profile DTAP,TDAP ,TD (1 - Tdap) [facility] Start: 1992 Adult depression scr eening assessment DEPRESSION SCREENING [facility] Start: 1986 PNEUMOCOCCAL (1 - PCV) PNEUMOCOCCAL (1 - PCV) [facility] Start: 06-25-1981 COVID-19 VACCINE (#1) COVID-19 VACCI NE (#1) [facility] Alanine aminotransfe rase [Enzymatic activity/volume] in Serum or Plasma [facility] Alanine aminotransfe rase [Enzymatic activity/volume] in Serum or Plasma [facility] Albumin [Mass/volume ] in Serum or Plasma [facility] Albumin [Mass/volume ] in Serum or Plasma [facility] Alkaline phosphatase [Enzymatic activity/volume] in Serum or Plasma [facility] Alkaline phosphatase [Enzymatic activity/volume] in Serum or Plasma [facility] Anion gap in Serum o r Plasma [facility] Anion gap in Serum o r Plasma [facility] Bilirubin, total measurement [facility] Bilirubin, total measurement [facility] BUN/Creatinine ratio [facility] BUN/Creatinine ratio [facility] Calcium [Mass/volume ] in Serum or Plasma [facility] Calcium [Mass/volume ] in Serum or Plasma [facility] Carbon dioxide, tota l [Moles/volume] in Central venous blood [facility] Carbon dioxide, tota l [Moles/volume] in Central venous blood [facility] Creatinine [Mass/vol ume] in Serum or Plasma [facility] Creatinine [Mass/vol ume] in Serum or Plasma [facility] End: 03-31-2023 Diagnostic mammography computer-aided detcj bi [facility] Radiology Routine Fibrocystic breast changes, left Breast pain 1 Occurrences starting 03/01/2022 until 03/31/2023 [facility] [facility] Work Phone: Comment on above: 1 Occurrences starti ng 03/01/2022 until 03/31/2023 Erythrocyte mean corpuscular volume determination [facility] Erythrocyte mean corpuscular volume determination [facility] Follicle stimulating hormone measurement [facility] Glucose [Mass/volume ] in Serum or Plasma [facility] Glucose [Mass/volume ] in Serum or Plasma [facility] Hematocrit [Volume Fraction] of Blood [facility] Hematocrit [Volume Fraction] of Blood [facility] Hemoglobin [Mass/vol ume] in Blood [facility] Hemoglobin [Mass/vol ume] in Blood [facility] Leukocytes [#/volume ] in Blood [facility] Leukocytes [#/volume ] in Blood [facility] Lutropin [Units/volu me] in Serum or Plasma [facility] Magnesium measurement [facility] Mean corpuscular hemoglobin concentration determination [facility] Mean corpuscular hemoglobin concentration determination [facility] Mean corpuscular hemoglobin determination [facility] Mean corpuscular hemoglobin determination [facility] Measurement of renal function [facility] Measurement of renal function [facility] Neutrophil count [facility] Neutrophil count [facility] Neutrophil percent differential count [facility] Neutrophil percent differential count [facility] Patient referral [facility] Work Phone: Platelet count [facility] Platelet mean volume determination [facility] Platelets [#/volume] in Blood [facility] Platelets [#/volume] in Blood [facility] Positron emission tomography with computed tomography [facility] Potassium measurement [facility] Potassium measurement [facility] Red blood cell count [facility] Red blood cell count [facility] Red cell distributio n width determination [facility] Red cell distributio n width determination [facility] Serum chloride measurement [facility] Serum chloride measurement [facility] Sodium measurement [facility] Sodium measurement [facility] Total protein measurement [facility] Total protein measurement [facility] Urea nitrogen [Mass/volume] in Serum or Plasma [facility] Urea nitrogen [Mass/volume] in Serum or Plasma [facility] Urinalysis complete panel - Urine [facility] End: 03-31-2023 Us breast uni real time with image limited [facility] Radiology Routine Fibrocystic breast changes, left Breast pain 1 Occurrences starting 03/01/2022 until 03/31/2023 [facility] Work Phone: Comment on above: 1 Occurrences starti ng 03/01/2022 until 03/31/2023 US Heart [facility] White blood cell count [facility] Immunizations Immunization Date Immunization Notes Care Provider Shan field 08-18-2017 influenza, injectabl e, quadrivalent, preservative free Dr. David Ghotra DO Work Phone: [facility] Payers Date Payer Category Payer Self-pay 2022 Medicaid [id number] 2019 Medicaid [employer] [id number] 2019-Present [phone] [address] [place] [address] Medicaid [id number] 2019 Medicaid [id number] Self-pay [id number] Unknown [id number] Unknown [id number] .840.1.076105.3.579.2.462 Unknown [id number] 2.840.1.963645.3.579.2.462 Unknown [id number] 2.840.1.065291.3.579.2.462 Unknown [id number] 2.840.1.318758.3.579.2.462 Unknown [id number] .840.1.562138.3.579.2.462 Unknown [id number] .840.1.062708.3.579.2.462 Unknown [id number] 2.840.1.309996.3.579.2.462 Unknown [id number] .840.1.194278.3.579.2.462 Unknown [id number] .840.1.965473.3.579.2.462 Unknown [id number] .840.1.612229.3.579.2.462 Unknown [id number] .840.1.808782.3.579.2.462 Unknown [id number] 840.1.794680.3.579.2.462 Unknown [id number] .840.1.352242.3.579.2.462 Unknown [id number] .840.1.684026.3.579.2.462 Unknown [id number] 2.840.1.271469.3.579.2.462 Unknown [id number] 2.840.1.928779.3.579.2.462 Unknown [id number] 2.840.1.045936.3.579.2.462 Unknown [id number] 840.1.874231.3.579.2.462 Unknown [id number] 2.16.840.1.058530.3.579.2.462 Unknown [id number] 2.16.840.1.434324.3.579.2.462 Unknown [id number] 2.16.840.1.619691.3.579.2.462 Social History Date Type Detail Facility Start: 07-13-2015 Tobacco smoking stat us [facility] Smokes tobacco daily [facility] History of tobacco use Cigarette Smoker [facility] Start: 07-13-2015 Cigarettes smoked current (pack per day) - Reported 0.5 [facility] Start: 07-13-2015 Tobacco use and exposure Smokeless tobacco non-user [facility] Start: 03-01-2022 Alcohol intake Current drinke r of alcohol (finding) [facility] Start: 02-09-2017 History SDOH Alcohol Comment occasionally, but not while [facility] Start: 1980 Sex Assigned At Female C [facility] Start: 02-19-2022 End: 03-01-2022 Exposure to SARS-CoV-2 (event) Not sure [facility] Work Phone: Start: 12-06-2024 End: 01-02-2025 Tobacco smoking status [facility] Current Light tobacco smoker [facility] Start: 06-18-2014 Alcohol Alcohol [facility] Not [facility] NEGATED: Highlighted row Not [facility] Medical Equipment Procedure Code Equipment Code Equipment Origin al Text Equipment Identifier Dates Insertion, vascular access port ([id number]) Vascular port/catheter [id number] FDA Start: 01-08-2025 Goals Date Patient Goal Desired Activity /State Mental Status Date Assessment Result Facility 01-08-2025 Cognitive function Voice/Name [facility] Work Phone: Clinical Notes 07-12-2017 to 05-15-2025 Note Date & Type Note Facility 05-15-2025 Note SARS-COV-2 (AGENT OF COVID-19) RNA: Not detected INFLUENZA A RNA: Not detected INFLUENZA B RNA: Not detected RESPIRATORY SYNCYTIAL VIRUS (RSV) RNA: Not detected [facility] Comment on above: Performed By: #### 9 [id number] #### [facility] CLIA [id number] [address] [place] [address] [place] 05-07-2025 Progress note [facility] 04-02-2025 Progress note [facility] 04-02-2025 Progress note Note Date/Time April 02, 2025 10:15am [facility] [address] [place] [address] OFFICE VISIT Date of Service: 04/02/25 0946 MR#: [id number] Acct: [id number] Name: HOWARD HALL Rep #: [id number] : 1980 From: Arnaud parr MD Age/Sex: 44/F Location: [facility] Status: Signed HPI Subjective Date of Service 04/02/25 Chief Complaint Breast cancer on treatment History of Present Illness 44-year-old female menopausal [...] MALIGNANCY. December 10, 2024: A. Left breast, "mass", 9-11 o'clock, 5 CMFN, biopsy: * Invasive [...] in 100% of tumor cells PROGESTERONE RECEPTOR (HI): Positive, strong immunoreactivity in 100% of tumor cells HER2/DIEGO IHC: Positive, (Score 3+) KI67 IHC: 40% B. Left axilla, lymph node, biopsy: * Metastatic mammary carcinoma (See note) Note: The pancytokeratin stain is positive supporting the diagnosis. January 13, 2025 CT chest abdomen and pelvis: IMPRESSION: 1. Known mass in the left breast consistent with carcinoma. 2. There is no evidence of metastatic disease. January 17, 2025 bone scan: IMPRESSION: No evidence of metastatic breast cancer. Echocardiogram: Normal LV size. The left ventricular ejection fraction is 60%. Stage I diastolic dysfunction. The global longitudinal strain is normal. The global longitudinal strain = -16.7% (normal). Treatment summary and response: TCHP February 13, 2025 Interval History February 2025 on antibiotics for an infected tooth, right lower jaw improving withless swelling and pain PFSH Medical History (Updated 04/02/25 @ 10:[address] Arnaud Borja MD) Diarrhea due to drug UTI (urinary tract infection) Dysuria Encounter for antineoplastic chemotherapy and immunotherapy Encounter for education Post-menopausal Wears glasses Cancer Depression Anemia Smoker History of edema Regional lymph node metastasis present Anxiety Breast cancer Surgical History History of wisdom tooth extraction Family History Aunt Breast cancer Aunt Breast cancer Aunt Breast cancer Father Brain tumor Uncle Cancer Mother Heart disease Social History Smoking Status: Light Smoker (<10/day) [...] no addt'l complaints, except as documented and nausea; Denies diarrhea Genitourinary Genitourinary: Reports systems reviewed and no addt'l complaints, except as documented; Denies dysuria Musculoskeletal Musculoskeletal: Reports systems reviewed and no addt'l complaints, except as documented and other Details: No new aches or pains ; Denies back pain Integumentary Integumentary: Reports systems reviewed and no addt'l complaints, except as documented; Denies new lesions Neurologic Neurologic: Reports systems reviewed and no addt'l complaints, except as documented; Denies focal weakness, headache(s) or paresthesias Psychiatric Psychiatric: Reports systems reviewed and no addt'l complaints, except as documented Endocrine Endocrinology: Reports systems reviewed and no addt'l complaints, except as documented, as per HPI and flushing Hematologic/Lymphatic Hematologic/Lymphatic: Reports systems reviewed and no addt'l complaints, exceptas documented; Denies lymphadenopathy Allergic/Immunologic Allergic/Immunologic: Reports systems reviewed and no addt'l complaints, except as documented Intake Vital Signs 03/12/25 08:56 04/02/25 09:48 04/02/25 09:52 Height 5 ft 5 in 5 ft 5 in 5 ft 5 in Weight: 67.585 kg BMI 24.7 BP 164/103 H Blood Pressure Location Lt brachial Position Sitting Respiration 16 Pulse 81 Pulse Source Monitor Temp 98.3 F Temperature Source Temporal Artery Pulse Oximetry (%) 99 Oxygen Delivery Method room air Intake Is patient in pain?: No Allergies No Known Allergies Allergy (Verified 04/02/25 09:50) Medications ?Medication ?Instructions ?Recorded ?Confirmed ?Type citalopram 40 mg tablet 40 mg PO QDAY 12/09/2404/02 History lidocaine-prilocaine 2.5 %-2.5 % 1 applic topical ONCE PRN port 02/05/25 04/02/25 Rx topical cream access 30 days #30 grams ondansetron 8 mg disintegrating 8 mg PO Q8H PRN nausea and 02/05/25 04/02/25 Rx tablet vomiting #30 tabs prochlorperazine maleate 10 mg 10 mg PO Q6H PRN nausea and 02/05/25 04/02/25 Rx tablet vomiting #30 tabs MAGIC MOUTH WASH (BMX) 180 mL 15 ml PO .Q6HR #180 mL 0 02/20/25 04/02/25 Rx suspension dexamethasone 4 mg tablet 8 mg (2 x 4 mg) PO .COMPLEX #12 02/20/25 04/02/25 Rx tabs loperamide 2 mg capsule 2 mg PO Q4H PRN loose stool #60 02/20/25 04/02/25 Rx (Anti-Diarrheal (loperamide)) caps Have you fallen in the past year?: No Central Venous Access Central Venous Access: Yes Port/PICC: Port CBC, CMP April 02, 2025 reviewed in EMR Exam Physical Exam Narrative ECOG 0-1 Const alert, oriented x3 and no apparent distress General Appearance: cooperative and comfortable HEENT normocephalic Face and Sinus: normal facial exam Mouth: oral and palatal mucosa normal Eyes General Eye: normal appearance of both eyes Neck no lymphadenopathy and no JVD Chest Chest: vascular access Resp clear to auscultation bilaterally Cardio regular [...] no focal motor deficits Coordination / Balance: [id number] test normal Speech: speech normal Gait (Neuro): normal gait Psych cooperative Mood & Affect: anxious Coding Level of Care Code Off vis,est,level 4 Exam Problem Focused Diagnoses Malignant neoplasm of overlapping sites of left breast in female, estrogen receptor positive C50.812; Z17.0 Breast location: overlapping sites of breast Estrogen receptor status: positive Patient sex: female Laterality: left Regional lymph node metastasis present C77.9 Anemia D64.9 Assessment and Plan Assessment and Plan (1) Breast cancer: Status: Acute Qualifiers: Breast location: overlapping sites of breast Estrogen receptor status: positive Patient sex: female Laterality: left Qualified Code(s): C50.812 - Malignant neoplasm of overlapping sites of left female breast; Z17.0 - Estrogen receptor positive status [ER+] (2) Regional lymph node metastasis present: Status: Acute (3) Anemia: Status: Chronic Plan 44-year-old female postmenopausal at diagnosis l (amenorrheic for over 1 year, FSH and LH in December 2024 consistent with menopausal status) with clinical stage IIIB (T4 with satellite nodules in the same breast, at least N1, MX) 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 Started February 13, 2025 neoadjuvant systemic chemoimmunotherapy with TCHP. Main toxicities reported are GI (diarrhea, grade 2, manageable) and bone pain from growth factor use and anemia. Chronic comorbid conditions: Smoker, and anxiety. Plan: Based on NCCN guidelines and up-to-date review of treatment of breast cancer: 1. Continue systemic neoadjuvant chemoimmunotherapy with TCHP supported with antiemetics, steroids and growth factor for 6 cycles to be followed by definitive surgery. Treatment is with curative intent. 2. Pretreatment cardiac echo ejection fraction normal at 60%. Repeat every 3 months, next to schedule at the end of the preoperative phase/beginning of postoperative phase. 3. Follow-up in 3 weeks . 4. Check for any deficiencies of iron or B12 and correct if confirmed. Patient was seen , impression and plan discussed. Arnaud Borja MD [employer] [place], [facility] Divisions of Medical Oncology & Hematology Department of Internal Medicine [place] [id number] This note was generated using a voice [...] you fallen in the past year?: No 04/02/25 1015 <Electronically signed by Arnaud hurley MD> Date _ Arnaud Borja MD Cosigner Signature: Date (if applicable) CC: ~ [facility] Work Phone: 1(684) 363-503107-17-2025 Progress [facility] [address] [place] [address] OFFICE VISIT Date of Service: 02/13/25 0830 MR#: [id number] Acct: [id number] Name: HOWARD HALL Rep #: [id number] : 1980 From: Kelsey Morse ch LAYOUT MECHANIC 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 December 10, 2024: A. Left breast, "mass", 9-11 o'clock, 5 CMFN, biopsy: * Invasive [...] in 100% of tumor cells PROGESTERONE RECEPTOR (HI): Positive, strong immunoreactivity in 100% of tumor cells HER2/DIEGO IHC: Positive, (Score 3+) KI67 IHC: 40% B. Left axilla, lymph node, biopsy: * Metastatic mammary carcinoma (See note) Note: The pancytokeratin stain is positive supporting the diagnosis. January 13, 2025 CT chest abdomen and pelvis: IMPRESSION: 1. Known mass in the left breast consistent with carcinoma. 2. There is no evidence of metastatic disease. January 17, 2025 bone scan: IMPRESSION: No evidence of metastatic breast cancer. Echocardiogram: Normal LV size. The left ventricular ejection fraction is 60%. Stage I diastolic dysfunction. The global longitudinal strain is normal. The global longitudinal strain = - 16.7% (normal). Treatment summary and response: TCHP to February 13, 2025 Interval History The patient is presenting to clinic accompanied by son for an evaluation anticipating she will begin neoadjuvant TCHP. Confirms she took dexamethasone BID yesterday and this morning. She denies any concerns r/t today's visit. [facility] Medical History (Updated 02/13/25 @ 09:09 by Kelsey Holland NP, LAYOUT MECHANIC-C) Encounter for antineoplastic chemotherapy and immunotherapy Encounter for education Post-menopausal Wears glasses Cancer Depression Anemia Smoker History of edema Regional lymph node metastasis present Anxiety Breast cancer Surgical History History of wisdom tooth extraction Family History Aunt Breast cancer Aunt Breast cancer Aunt Breast cancer Father Brain tumor Uncle Cancer Mother Heart disease Social History Smoking Status: Light Smoker (<10/day) Tobacco: How many years used: 20 alcohol intake: never ROS ROS Narrative Negative except as documented in the interval HPI Intake Vital Signs 02/05/25 15:25 02/13/25 08:31 02/13/25 08:35 Height 5 ft 5 in 5 ft 5 in 5 ft 5 in Weight: 149 lb 8 oz BMI 24.8 BP 128/86 H Blood Pressure Location Lt brachial Position Sitting Respiration 16 Pulse 87 Pulse Source Monitor Temp 98.3 F Temperature Source Temporal Artery Pulse Oximetry (%) 96 Oxygen Delivery Method room air Intake Is patient in pain?: No Allergies No Known Allergies Allergy (Verified 02/13/25 08:34) Medications ?Medication ?Instructions ?Recorded ?Confirmed ?Type citalopram 40 mg tablet 40 mg PO QDAY 12/09/2402/13 History dexamethasone 4 mg tablet 8 mg (2 x 4 mg) PO .COMPLEX #12 02/05/25 02/13/25 Rx tabs lidocaine-prilocaine 2.5 %-2.5 % 1 applic topical ONCE PRN port 02/05/25 02/13/25 Rx topical cream access 30 days #30 grams ondansetron 8 mg disintegrating 8 mg PO Q8H PRN nausea and 02/05/25 02/13/25 Rx tablet vomiting #30 tabs prochlorperazine maleate 10 mg 10 mg PO Q6H PRN nausea and 02/05/25 02/13/25 Rx tablet vomiting #30 tabs Central Venous Access Central Venous Access: Yes Port/PICC: Port Laboratory Tests 12/25/24 02/13/25 17:03 07:55 WBC 5.6 Hgb 12.3 Hct 37.1 Plt Count 236 Absolute Neuts (auto) 4.4 Sodium 140 Potassium 3.9 Chloride 105 BUN 13 Creatinine 0.79 Glucose 134 H Calcium 9.5 Magnesium 2.3 H Total Bilirubin 0.15 AST 23 ALT 20 Alkaline Phosphatase 103 Albumin 4.4 CA 27-29 103.0 H Exam Physical Exam Narrative ECOG 0 Const alert, oriented x3 and no apparent distress General Appearance: comfortable HEENT normocephalic Face and Sinus: normal facial exam Mouth: oral and palatal mucosa normal Eyes General Eye: normal appearance of both eyes Neck no lymphadenopathy and no JVD Lymph Lymphatic: no lymphadenopathy noted Chest Chest: vascular access Resp normal respiratory effort and clear to auscultation bilaterally Cardio regular rate, regular rhythm, S1 normal heart sound and S2 normal heart sound Jugular Venous Distention: Negative for JVD GI soft to palpation, non-tender and non-distended; Negative for hepatosplenomegaly Back/Spine no CVA tenderness and no thoracic nor lumbar tenderness Extremity no clubbing, cyanosis or edema Skin no rashes or lesions noted and no wounds Neuro oriented x3, CN's II-XII intact bilaterally, moves all extremities and no focal motor deficits Speech: speech normal Gait (Neuro): normal gait Psych cooperative Mood & Affect: anxious Coding Level of Care Code Off vis,est,level 4 Exam Problem Focused Diagnoses Malignant neoplasm of overlapping sites of left breast in female, estrogen receptor positive C50.812; Z17.0 Breast location: overlapping sites of breast Estrogen receptor status: positive Patient sex: female Laterality: left Regional lymph node metastasis present C77.9 Encounter for antineoplastic chemotherapy and immunotherapy Z51.11; Z51.12 Assessment and Plan Assessment and Plan (1) Breast cancer: Status: Acute Qualifiers: Breast location: overlapping sites of breast Estrogen receptor status: positive Patient sex: femaleLaterality: left Qualified Code(s): C50.812 - Malignant neoplasm of overlapping sites of left female breast; Z17.0 - Estrogen receptor positive status [ER+] (2) Regional lymph node metastasis present: Status: Acute (3) Encounter for antineoplastic chemotherapy and immunotherapy: Status: Acute Plan 44-year-old female postmenopausal at diagnosis l (amenorrheic for over 1 year, FSH and LH in December 2024 consistent with menopausal status) with clinical stage IIIB (T4 with satellite nodules in the same breast, at least N1, MX) invasive ductal cancer of the left breast, grade 2 on biopsy, with DCIS,ER positive (100% strong) HI positive (100% strong) HER2 diego IHC overexpressed 3+, Ki-67 40% with pathologically confirmed metastatic cancer to the left axillary lymph node. Pretreatment echo showed EF 60%. Chronic comorbid conditions: Smoker, and anxiety. Plan: Based on NCCN guidelines and up-to-date review of treatment of breast cancer: 1. Systemic neoadjuvant chemoimmunotherapy with TCHP supported with antiemetics, steroids and growth factor for 6 cycles to be followed by definitive surgery. The patient's questions and concerns been addressed to her satisfaction. She is agreeable to commence with cycle 1 TCHP today, will be supported with G-CSF tomorrow. Return to office in 10 to 14 days for planned toxicity assessment and on 03/06/2025 for? Cycle 2 TCHP. 02/13/25 0911 h LAYOUT MECHANIC LAYOUT MECHANIC-C> Date _ Kelsey Holland LAYOUT MECHANIC LAYOUT MECHANIC-C Cosigner Signature: Date (if applicable) CC: ~ [facility]07-17-2025 Progress note Author Kelsey Holland [facility] Note Date/Time February 13, 2025 9:11 am [facility] [address] [place] [address] OFFICE VISIT Date of Service: 02/13/25 0830 MR#: [id number] Acct: [id number] Name: HOWARD HALL Rep #: [id number] : 1980 From: Kelsye Morse LAYOUT MECHANIC 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 December 10, 2024: A. Left breast, "mass", 9-11 o'clock, 5 CMFN, biopsy: * Invasive [...] in 100% of tumor cells PROGESTERONE RECEPTOR (HI): Positive, strong immunoreactivity in 100% of tumor cells HER2/DIEGO IHC: Positive, (Score 3+) KI67 IHC: 40% B. Left axilla, lymph node, biopsy: * Metastatic mammary carcinoma (See note) Note: The pancytokeratin stain is positive supporting the diagnosis. January 13, 2025 CT chest abdomen and pelvis: IMPRESSION: 1. Known mass in the left breast consistent with carcinoma. 2. There is no evidence of metastatic disease. January 17, 2025 bone scan: IMPRESSION: No evidence of metastatic breast cancer. Echocardiogram: Normal LV size. The left ventricular ejection fraction is 60%. Stage I diastolic dysfunction. The global longitudinal strain is normal. The global longitudinal strain = - 16.7% (normal). Treatment summary and response: TCHP to February 13, 2025 Interval History The patient is presenting to clinic accompanied by son for an evaluation anticipating she will begin neoadjuvant TCHP. Confirms she took dexamethasone BID yesterday and this morning. She denies any concerns r/t today's visit. [facility] Medical History (Updated 02/13/25 @ 09:09 by Kelsey Holland NP, LAYOUT MECHANIC-C) Encounter for antineoplastic chemotherapy and immunotherapy Encounter for education Post-menopausal Wears glasses Cancer Depression Anemia Smoker History of edema Regional lymph node metastasis present Anxiety Breast cancer Surgical History History of wisdom tooth extraction Family History Aunt Breast cancer Aunt Breast cancer Aunt Breast cancer Father Brain tumor Uncle Cancer Mother Heart disease Social History Smoking Status: Light Smoker (<10/day) Tobacco: How many years used: 20 alcohol intake: never ROS ROS Narrative Negative except as documented in the interval HPI Intake Vital Signs 02/05/25 15:25 02/13/25 08:31 02/13/25 08:35 Height 5 ft 5 in 5 ft 5 in 5 ft 5 in Weight: 149 lb 8 oz BMI 24.8 BP 128/86 H Blood Pressure Location Lt brachial Position Sitting Respiration 16 Pulse 87 Pulse Source Monitor Temp 98.3 F Temperature Source Temporal Artery Pulse Oximetry (%) 96 Oxygen Delivery Method room air Intake Is patient in pain?: No Allergies No Known Allergies Allergy (Verified 02/13/25 08:34) Medications ?Medication ?Instructions ?Recorded ?Confirmed ?Type citalopram 40 mg tablet 40 mg PO QDAY 12/09/2402/13 History dexamethasone 4 mg tablet 8 mg (2 x 4 mg) PO .COMPLEX #12 02/05/25 02/13/25 Rx tabs lidocaine-prilocaine 2.5 %-2.5 % 1 applic topical ONCE PRN port 02/05/25 02/13/25 Rx topical cream access 30 days #30 grams ondansetron 8 mg disintegrating 8 mg PO Q8H PRN nausea and 02/05/25 02/13/25 Rx tablet vomiting #30 tabs prochlorperazine maleate 10 mg 10 mg PO Q6H PRN nausea and 02/05/25 02/13/25 Rx tablet vomiting #30 tabs Central Venous Access Central Venous Access: Yes Port/PICC: Port Laboratory Tests 12/25/24 02/13/25 17:03 07:55 WBC 5.6 Hgb 12.3 Hct 37.1 Plt Count 236 Absolute Neuts (auto) 4.4 Sodium 140 Potassium 3.9 Chloride 105 BUN 13 Creatinine 0.79 Glucose 134 H Calcium 9.5 Magnesium 2.3 H Total Bilirubin 0.15 AST 23 ALT 20 Alkaline Phosphatase 103 Albumin 4.4 CA 27-29 103.0 H Exam Physical Exam Narrative ECOG 0 Const alert, oriented x3 and no apparent distress General Appearance: comfortable HEENT normocephalic Face and Sinus: normal facial exam Mouth: oral and palatal mucosa normal Eyes General Eye: normal appearance of both eyes Neck no lymphadenopathy and no JVD Lymph Lymphatic: no lymphadenopathy noted Chest Chest: vascular access Resp normal respiratory effort and clear to auscultation bilaterally Cardio regular rate, regular rhythm, S1 normal heart sound and S2 normal heart sound Jugular Venous Distention: Negative for JVD GI soft to palpation, non-tender and non-distended; Negative for hepatosplenomegaly Back/Spine no CVA tenderness and no thoracic nor lumbar tenderness Extremity no clubbing, cyanosis or edema Skin no rashes or lesions noted and no wounds Neuro oriented x3, CN's II-XII intact bilaterally, moves all extremities and no focal motor deficits Speech: speech normal Gait (Neuro): normal gait Psych cooperative Mood & Affect: anxious Coding Level of Care Code Off vis,est,level 4 Exam Problem Focused Diagnoses Malignant neoplasm of overlapping sites of left breast in female, estrogen receptor positive C50.812; Z17.0 Breast location: overlapping sites of breast Estrogen receptor status: positive Patient sex: female Laterality: left Regional lymph node metastasis present C77.9 Encounter for antineoplastic chemotherapy and immunotherapy Z51.11; Z51.12 Assessment and Plan Assessment and Plan (1) Breast cancer: Status: Acute Qualifiers: Breast location: overlapping sites of breast Estrogen receptor status: positive Patient sex: female Laterality: left Qualified Code(s): C50.812 - Malignant neoplasm of overlapping sites of left female breast; Z17.0 - Estrogen receptor positive status [ER+] (2) Regional lymph node metastasis present: Status: Acute (3) Encounter for antineoplastic chemotherapy and immunotherapy: Status: Acute Plan 44-year-old female postmenopausal at diagnosis l (amenorrheic for over 1 year, FSH and LH in December 2024 consistent with menopausal status) with clinical stage IIIB (T4 with satellite nodules in the same breast, at least N1, MX) 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 Pretreatment echo showed EF 60%. Chronic comorbid conditions: Smoker, and anxiety. Plan: Based on NCCN guidelines and up-to-date review of treatment of breast cancer: 1. Systemic neoadjuvant chemoimmunotherapy with TCHP supported with antiemetics, steroids and growth factor for 6 cycles to be followed by definitive surgery. The patient's questions and concerns been addressed to her satisfaction. She is agreeable to commence with cycle 1 TCHP today, will be supported with G-CSF tomorrow. Return to office in 10 to 14 days for planned toxicity assessment and on 03/06/2025 for? Cycle 2 TCHP. 02/13/25 0911 <Electronically signed by Kelsey SHETTYC> Date _ Kelsey Holland NP, NP-C Cosigner Signature: Date (if applicable) CC: ~ [place] [employer] Work Phone: 1(853) 304-941906-22-2025 Nuclear medicine Diagnostic study note [facility] Imaging Services [address] [address] [facility] [place], [place] [id number] Bone Scan Whole Body MR#: [id number] Acct: [id number] Name: HOWARD HALL Rep #: [id number] : 1980 F 44 From: Pet alexis Shaffer DO PCP: Dr. David Ghotra DO Status: REG CLI Study:Bone Scan Whole Body Date of Exam: 01/17/25 Exam# [id number] Ordering Dr: Arnaud Borja MD PROCEDURE: BONE SCAN WHOLE BODY 01/17/2025 REASON FOR EXAM: STAGING BREAST CANCER TECHNIQUE: Delayed phase imaging of the whole body after radiopharmaceutical administrationintravenous RADIOPHARMACEUTICAL: 25 mCi Technetium-99m MDP IV COMPARISON: None. FINDINGS: Delayed: Normal uptake is seen in the axial and appendicular skeleton. Areas of expected uptake for osteoarthritis of the symmetric hands and wrists, elbows, shoulders, knees and ankle Oral secretion in the kidneys with tracer collecting in the urinary bladder is seen as expected s NM/Bone Scan Whole Body IMPRESSION: No evidence of metastatic breast cancer. Reading Location: [facility] CC: Dr. Arnaud Borja MD; Dr. David Ghotra DO ~ Emt Driver: Signed [facility]06-17-2025 Radiology Diagnostic study note [facility] Imaging Services [address] [place], [place] [address] CT Chest, Abd, Pel w/Contrast MR#: [id number] Acct: [id number] Name: HOWARD HALL Rep #: [id number] : 1980 F 44 From: Steve Tinoco MD PCP: Dr. David Ghotra DO Status: REG CLI Study:CT Chest, Abd, Pel w/Contrast Date of E xam: 01/13/25 Exam# [id number] Ordering Dr: Arnaud Borja MD PROCEDURE: CT [...] There is no significant interstitial alveolar lung disease.There are no pulmonary nodules or masses. Pleura: [...] There is no free fluid in the pelvis.There is no pelvic or inguinal lymphadenopathy. Bowel: [...] 3. Other findings as noted. Reading Location: [id number] CC: Dr. Arnaud Borja MD; Dr. David Ghotra DO ~ Emt Driver: Signed [facility] Work Phone: 1(946) 334-410406-11-2025 Consult note [facility] Medical Records Department [address] [place] [address] Anesthesia Postop Eval I 01/08/25 1553 MR#: [id number] Acct: [id number] Name: HOWARD HALL Rep #:[id number] : 1980 44 From: Rebecca Mathews HAT TRIMMER PCP: Dr. David Ghotra, DO Status:REG SDC Y Race: C Location: [place] [address] Anesthesia: Postop Eval I Current Vital Signs [...] document: Postop Eval 1 completed: Yes 01/08/[address] HAT TRIMMER> Date _ Rebecca Mathews HAT TRIMMER Cosigner Signature: Date CC: ~ Signed [facility]06-11-2025 Consult note Author Clyde Starks [facility] Note Date/Time January 08, 2025 1:53 pm [facility] Medical Records Department [address] [place] [address] Pre-Anesthesia Evaluation 01/08/25 1352 MR#: [id number] Acct: [id number] Name: HOWARD HALL Rep #:[id number] : 1980 44 From: Clyde Starks MD PCP: Dr. David Ghotra, DO Status:REG SDC Y Race: C Location: [facility]-1 ASA Classification* ASA Classification ASA Classification: 2 [...] possible left Anesthesia History Anesthesia History - software engineer backend: Anesthesia History - software engineer backend Hx Hospitalization No 01/02/25 13:24 Any Problems [...] take am of surgery PONV PONV - software engineer backend: PONV - software engineer backend Female Yes 01/02/25 13:24 HX of Motion [...] 12/25/24 16:04 Respiratory Assessment Respiratory Assessment - software engineer backend: Respiratory Tract Infection Hx - software engineer backend Hx Respiratory Tract Infection No 01/02/25 13:24 STOP Sleep Apnea STOP Sleep Apnea - software engineer backend: STOP Sleep Apnea - software engineer backend Hx Hypertension No 01/02/25 13:24 Hx Sleep [...] 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 Use History - software engineer backend: Tobacco Use History - software engineer backend Tobacco Use Smoking Status Light Smoker (<10/day) 01/02/25 13:24 Hx Tobacco Use Yes 01/02/25 13:24 Years Smoking Packs Smoked per Day 0.5 01/02/25 13:24 Smoking Cessation Date was within the last 15 years Hx Smoking Cessation Date Hx Smoking Cessation Counseling Hematologic Medial History Hematologic Hx - software engineer backend: Hematologic Medical Hx - aws software development engineer Hx of Blood Transfusion No 01/02/25 [...] 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 History - software engineer backend: /Reproductive Hx- software engineer backend Hx Now No 01/02/25 13:24 Gestational Age [...] no additional complaints, except as documented. 01/08/25 9719 <Electronically signed by Clyde Starks MD > Date _ Clyde Starks MD Cosigner Signature: Date CC: ~ Signed [facility] Work Phone: 1(346) 776-419306-11-2025 Evaluation note* Diagnosis Onset Date Resolution Status Admit Date Breast cancer acute January 08, 2025 1:42pm Encounter for insertion of venous access port acute January 08 1:42pm Breast cancer acute January 23, 2025 11:16am Regional lymph node metastas is present acute January 23, 2025 11:16am Breast cancer acute February 05 025 3:23pm Encounter for education acute 2024 3:23pm Regional lymph node metastas is present acute February 05, 2025 3 :23pm Breast cancer acute February 13, 2025 7:45am Encounter for antineoplastic chemotherapy and immunotherapy acute J huong 2024 7:45am Regional lymph node metastas is present acute February 13, 2025 7:45am Breast cancer acute February 20, 2025 2:49pm Diarrhea due to drug acute February 20, 2025 2:49pm Dysuria acute February 20 2:49pm Regional lymph node metastas is present acute February 20, 2025 2:49pm Breast cancer acute February 8:04am Regional lymph node metastas is present acute March 12 8:04am Breast cancer acute April 022024 8:51am Regional lymph node metastas is present acute April 02, 025 8:51am Anemia chronic April 02, 2025 8:51am Breast cancer acute April 8:47am Regional lymph node metastas is present acute May 07 8:47am Anemia chronic May 07, 2 025 8:47am [facility] Work Phone: 1(696) 934-354606-11-2025 Radiology Diagnostic study note [facility] Imaging Services [address] [address] [place], [place] [id number] Chest 1 View MR#: [id number] Acct: [id number] Name: HOWARD HALL Rep #: [id number] : 1980 F 44 From: Chilo Fleming MD PCP: Dr. David Ghotra DO Status: REG [facility] Study:Chest 1 View Date of Exam: 5 Exam# [id number] Ordering Dr: Feliciano Burris MD PROCEDURE: CHEST [...] vena cava and right atrium. Reading Location: [facility] CC: Dr. Feliciano Castellon MD; Dr. David Ghotra DO ~ Emt Driver: Signed [facility]06-11-2025 Consult note [facility] Medical Records Department [address] [place] [address] Anesthesia Postop Eval II 01/08/25 1530 MR#: [id number] Acct: [id number] Name: HOWARD HALL Rep #:[id number] : 1980 44 From: Clyde Starks MD PCP: Dr. David Ghotra, DO Status:REG SDC Y Race: C Location: [facility]- Anesthesia Postop Eval I Sum Postop Eval Completion status Anesthesia document: Postop Eval 1 completed: Yes Anesthesia Postop Eval I Summary Anesthesia Postop Eval I Summary: Anesthesia Postop Eval I: Assessment Summary Airway patent Yes 01/08/25 15:08 [email or web address] [email or web address] Spontaneous unlabored Yes 01/08/25 15:08 [email or web address] [email or web address] respirations Mental status Awake 01/08/25 15:08 [email or web address] [email or web address] nausea No 01/08/25 15:08 HAT [email or web address].JDEF Vomiting No 01/08/25 15:08 HAT [email or web address] Anesthesia Postop Eval I: Fluid Summary Crystalloid volume administer 300 01/08/25 15:08 HAT [email or web address].JDEF (ml) Colloids volume administered ( ml) Blood Product volume administered (ml) Total IV fluid infused 300 01/08/25 15:08 HAT [email or web address] Anesthesia Postop Eval I: Summary Notes Anesthesia Complication No 01/08/25 15:08 HAT [email or web address] Anesthesia Complication Comment: Post-operative progress note Anesthesia: Postop Eval II Evaluation Mental status: Awake Pain Level: 0 nausea: No Vomiting: No 01/08/25 1530 > Date _ Clyde Starks [facility] Signature: Date CC: ~ Signed [facility]06-11-2025 Discharge summary [facility] Medical Records Department [address] [place] [address] Instructions for Home/Discharge Instructions 01/08/25 1507 MR#: [id number] Acct: [id number] Name: HOWARD HALL Rep #:[id number] : 1980 44 From: Feliciano salazar MD PCP: Dr. David Ghotra DO Status:REG [facility] Discharge Instructions Procedure Gallbladder Diet Discharge Diet: [...] to schedule 2 week follow up appointment. [phone] Test Results: Test results from this visit will be discussed in further detail at your follow- up appointment, if applicable. Discharge Plan Admission Attending Provider: Feliciano Castellon Primary Care Provider: David Ghotra Instructions Print Language: Tajik Discharge Orders/Prescriptions Prescriptions: No Action citalopram 40 mg tablet 40 mg PO QDAY Referrals / Follow Up: David Ghotra DO [Primary Care Provider] - Disposition Disposition (needs filled in before D/C Order can be placed): Home, Self Care 01/08/25 8280Feliciano Castellon MD CC: Dr. David Ghotra DO ~ Signed [facility]06-11-2025 Consult note [facility] Medical Records Department [address] [place] [address] Anesthesia Postop Eval I 01/08/25 1506 MR#: [id number] Acct: [id number] Name: HOWARD HALL Rep #:[id number] : 1980 44 From: Rebecca Mathews CRNA PCP: Dr. David Ghotra, DO Status:REG [facility] Y Race: C Location: [place] [address] Anesthesia: Postop Eval I Current Vital Signs [...] Postop Eval 1 completed: Yes 01/08/[address] HAT TRIMMER> Date _ Rebecca Mathews HAT TRIMMER Cosigner Signature: Date CC: ~ Signed [facility]06-11-2025 Procedure note [facility] Medical Records Department [address] [place] [address] Operative Report 01/08/25 1506 MR#: [id number] Acct: [id number] Name: HOWARD HALL Rep #:[id number] : 1980 44 From: Feliciano salazar MD PCP: Dr. David Ghotra, DO Status:REG [facility] Location: [address] Operative Report (Standard) Operative Information Date of Procedure: 01/08/25 Pre-Operative Diagnosis: Need for vascular access port for chemotherapy Post-Operative Diagnosis: Same Surgery/Procedure Performed: Ultrasound and fluoroscopy guided right chest port placement with utilization of right IJ broom worker: No Type of Anesthesia: Local MAC RN [...] apply: Implanted device Implanted device details: 8 Pashto PowerPort Estimated Blood Loss: 5 Specimen collected: [...] CC: Dr. Feliciano Castellon MD; Dr. David Ghotra, ~ Signed [facility]06-11-2025 History and physical note [facility] Medical Records Department [address] [place] [address] H&P Exam - Surgical 01/08/25 1420 MR#: [id number] Acct: [id number] Name: HOWARD HALL Rep #:[id number] : 1980 44 From: Feliciano salazar MD PCP: Dr. David Ghotra DO Status:REG [facility] Location: [place] [address]- HPI - General HPI Narrative HOWARD HALL, [...] willing to proceed. Feliciano Castellon MD Pager: [facility] [address] [place] [address], [address] [place] [phone] Office: 01/08/25 1422 Cosigner Signature (if applicable): CC: Dr. Feliciano Castellon MD; Dr. David Ghotra, DO~ Signed [facility]06-11-2025 Consult note [facility] Medical Records Department [address] [place], [place] [id number] Pre-Anesthesia Evaluation 01/08/25 1352 MR#: [id number] Acct: [id number] Name: HOWARD HALL Rep #:[id number] : 1980 44 From: Clyde Starks MD PCP: Dr. David Ghotra, DO Status:REG SDC Y Race: C Location: [facility]-1 ASA Classification* ASA Classification ASA Classification: 2 [...] possible left Anesthesia History Anesthesia History - software engineer backend: Anesthesia History - software engineer backend Hx Hospitalization No 01/02/25 13:24 Any Problems [...] take am of surgery PONV PONV - software engineer backend: PONV - software engineer backend Female Yes 01/02/25 13:24 HX of Motion [...] 12/25/24 16:04 Respiratory Assessment Respiratory Assessment - software engineer backend: Respiratory Tract Infection Hx - software engineer backend Hx Respiratory Tract Infection No 01/02/25 13:24 STOP Sleep Apnea STOP Sleep Apnea - software engineer backend: STOP Sleep Apnea - software engineer backend Hx Hypertension No 01/02/25 13:24 Hx Sleep [...] 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 Use History - software engineer backend: Tobacco Use History - software engineer backend Tobacco Use Smoking Status Light Smoker (<10/day) 01/02/25 13:24 Hx Tobacco Use Yes 01/02/25 13:24 Years Smoking Packs Smoked per Day 0.5 01/02/25 13:24 Smoking Cessation Date was within the last 15 years Hx Smoking Cessation Date Hx Smoking Cessation Counseling Hematologic Medial History Hematologic Hx - software engineer backend: Hematologic Medical Hx - aws software development engineer Hx of Blood Transfusion No 01/02/25 [...] 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 History - software engineer backend: /Reproductive Hx- software engineer backend Hx Now No 01/02/25 13:24 Gestational Age [...] 1353 > Date _ Clyde Starks MD [facility] Signature: Date CC: ~ Signed [facility]05-28-2025 Progress [facility] [address] [place] [address] OFFICE VISIT Date of Service: 12/25/24 1555 MR#: [id number] Acct: [id number] Name: HOWARD HALL Rep #: [id number] : 1980 From: Arnaud parr MD Age/Sex: 44/F Location: [facility] Status: Signed HPI Subjective Date of Service [...] MALIGNANCY. December 10, 2024: A. Left breast, "mass", 9-11 o'clock, 5 CMFN, biopsy: * Invasive [...] in 100% of tumor cells PROGESTERONE RECEPTOR (HI): Positive, strong immunoreactivity in 100% of tumor cells HER2/DIEGO IHC: Positive, (Score 3+) KI67 IHC: 40% B. Left axilla, lymph node, biopsy: * Metastatic mammary carcinoma (See note) Note: The pancytokeratin stain is positive supporting the diagnosis. [facility] Medical History (Updated 12/25/24 @ 16:50 by [...] no focal motor deficits Coordination / Balance: [id number] test normal Speech: speech normal Gait (Neuro): [...] biopsy, with DCIS, ER positive (100% strong) HI positive (100% strong) HER2 no IHC overexpressed [...] follow-up after PET scan. Arnaud Borja MD Wet Process [place], [facility] Divisions of Medical Oncology & Hematology Department of Internal Medicine [place] [address] This note was generated using a voice [...] CC: Dr. Feliciano Castellon MD; Dr. David Ghotra, DO ~ [facility]05-28-2025 Progress note Author Arnaud Borja [facility] Note Date/Time December 25, 2024 4:55p m [facility] [address] [place] [address] OFFICE VISIT Date of Service: 12/25/24 1555 MR#: [id number] Acct: [id number] Name: HOWARD HALL Rep #: [id number] : 1980 From: Arnaud parr MD Age/Sex: 44/F Location: [facility] Status: Signed HPI Subjective Date of Service [...] MALIGNANCY. December 10, 2024: A. Left breast, "mass", 9-11 o'clock, 5 CMFN, biopsy: * Invasive [...] in 100% of tumor cells PROGESTERONE RECEPTOR (HI): Positive, strong immunoreactivity in 100% of tumor cells HER2/DIEGO IHC: Positive, (Score 3+) KI67 IHC: 40% B. Left axilla, lymph node, biopsy: * Metastatic mammary carcinoma (See note) Note: The pancytokeratin stain is positive supporting the diagnosis. [facility] Medical History (Updated 12/25/24 @ 16:50 by [...] no focal motor deficits Coordination / Balance: [id number] test normal Speech: speech normal Gait (Neuro): [...] biopsy, with DCIS, ER positive (100% strong) HI positive (100% strong) HER2 no IHC overexpressed [...] follow-up after PET scan. Arnaud Borja MD Wet Process [place], [facility] Divisions of Medical Oncology & Hematology Department of Internal Medicine [place] [address] This note was generated using a voice [...] fallen in the past year?: No 12/25/24 8706 <Electronically signed by Arnaud hurley MD> Date _ Arnaud Borja MD Cosigner Signature: Date (if applicable) CC: Dr. Feliciano Castellon MD; Dr. David Ghotra, DO ~ [facility] Work Phone: 1(679) [phone] Evaluation note* Diagnosis Onset Date Resolution Status Admit Date Left breast mass acute November 1:07pm [facility] Work Phone: 1(960) 464-986405-12-2025 Evaluation note* Diagnosis Onset Date Resolution Status Admit Date Left breast mass acute November 1:07pm Left breast mass acute November 12:05pm [facility] Work Phone: 1(846) 835-284205-12-2025 Evaluation note* Diagnosis Onset Date Resolution Status Admit Date Left breast mass deleted November 1:07pm Left breast mass deleted November 12:05pm Breast cancer acute December 25, 2 025 3:54pm Regional lymph node metastas is present acute December 25, 2024 3 :54pm [facility] Work Phone: [phone]) 319-658605-12-2025 Evaluation note* Diagnosis Onset Date Resolution Status Admit Date Left breast mass deleted November 1:07pm Left breast mass deleted November 12:05pm Breast cancer acute December 25, 2 025 3:54pm Regional lymph node metastas is present acute December 25, 2024 3 :54pm Breast cancer acute January 08, 2025 1:42pm Encounter for insertion of venous access port acute January 08 1:42pm [facility] Work Phone: [phone]) [phone] Evaluation note* Diagnosis Onset Date Resolution Status Admit Date Left breast mass deleted November 1:07pm Left breast mass deleted November 12:05pm Breast cancer acute December 25, 2 025 3:54pm Regional lymph node metastas is present acute December 25, 2024 3 :54pm Breast cancer acute January 08, 2025 1:42pm Encounter for insertion of venous access port acute January 08 1:42pm Breast cancer acute January 23, 2025 11:16am Regional lymph node metastas is present acute January 23, 2025 11:16am [facility] Work Phone: [phone] Evaluation note* Diagnosis Onset Date Resolution Status Admit Date Left breast mass deleted November 1:07pm Left breast mass deleted November 12:05pm Breast cancer acute December 25, 2 025 3:54pm Regional lymph node metastas is present acute December 25, 2024 3 :54pm Breast cancer acute January 08, 2025 1:42pm Encounter for insertion of venous access port acute January 08 1:42pm Breast cancer acute January 23, 2025 11:16am Regional lymph node metastas is present acute January 23, 2025 11:16am Breast cancer acute February 05, 2 025 3:23pm Encounter for education acute [facility] 2024 3:23pm Regional lymph node metastas is present acute February 05, 2025 3 :23pm [facility] Work Phone: [phone]) [phone] Evaluation note* Diagnosis Onset Date Resolution Status Admit Date Left breast mass deleted November 1:07pm Left breast mass deleted November 12:05pm Breast cancer acute December 25, 2 025 3:54pm Regional lymph node metastas is present acute December 25, 2024 3 :54pm Breast cancer acute January 08, 2025 1:42pm Encounter for insertion of venous access port acute January 08 1:42pm Breast cancer acute January 23, 2025 11:16am Regional lymph node metastas is present acute January 23, 2025 11:16am Breast cancer acute February 05, 2 025 3:23pm Encounter for education acute [facility] 2024 3:23pm Regional lymph node metastas is present acute February 05, 2025 3 :23pm Breast cancer acute February 13, 2025 7:45am Encounter for antineoplastic chemotherapy and immunotherapy acute [facility] 2024 7:45am Regional lymph node metastas is present acute February 13, 2025 7:45am [facility] Work Phone: 1(290) 898-484505-12-2025 Evaluation note* Diagnosis Onset Date Resolution Status Admit Date Left breast mass deleted November 1:07pm Left breast mass deleted November 12:05pm Breast cancer acute December 25 025 3:54pm Regional lymph node metastas is present acute December 25, 2024 3 :54pm Breast cancer acute January 08, 2025 1:42pm Encounter for insertion of venous access port acute January 08 1:42pm Breast cancer acute January 23, 2025 11:16am Regional lymph node metastas is present acute January 23, 2025 11:16am Breast cancer acute February 05, 2 025 3:23pm Encounter for education acute [facility] 2024 3:23pm Regional lymph node metastas is present acute February 05, 2025 3 :23pm Breast cancer acute February 13, 2025 7:45am Encounter for antineoplastic chemotherapy and immunotherapy acute [facility] 2024 7:45am Regional lymph node metastas is present acute February 13, 2025 7:45am Breast cancer acute February 20, 2025 2:49pm Diarrhea due to drug acute February 20, 2025 2:49pm Dysuria acute February 20 2:49pm Regional lymph node metastas is present acute February 20, 2025 2:49pm Breast cancer acute February 8:04am Regional lymph node metastas is present acute March 12 8:04am [facility] Work Phone: 1(336) 401-261005-12-2025 Evaluation note* Diagnosis Onset Date Resolution Status Admit Date Left breast mass deleted November 1:07pm Left breast mass deleted November 12:05pm Breast cancer acute December 25, 2 025 3:54pm Regional lymph node metastas is present acute December 25, 2024 3 :54pm Breast cancer acute January 08, 2025 1:42pm Encounter for insertion of venous access port acute January 08 1:42pm Breast cancer acute January 23, 2025 11:16am Regional lymph node metastas is present acute January 23, 2025 11:16am Breast cancer acute February 05, 2 025 3:23pm Encounter for education acute [facility] 2024 3:23pm Regional lymph node metastas is present acute February 05, 2025 3 :23pm Breast cancer acute February 13, 2025 7:45am Encounter for antineoplastic chemotherapy and immunotherapy acute [facility] 2024 7:45am Regional lymph node metastas is present acute February 13, 2025 7:45am Breast cancer acute February 20, 2025 2:49pm Diarrhea due to drug acute February 20, 2025 2:49pm Dysuria acute February 20 2:49pm Regional lymph node metastas is present acute February 20, 2025 2:49pm Breast cancer acute February 8:04am Regional lymph node metastas is present acute March 12 8:04am Breast cancer acute April 022024 8:51am Regional lymph node metastas is present acute April 02 025 8:51am Anemia chronic April 02, 2025 8:51am [facility] Work Phone: 1(970) 201-394505-08-2025 Radiology Diagnostic study note [facility] Imaging Services [address] [place], [place] [id number] Breast Limited Unilateral MR#: [id number] Acct: [id number] Name: HOWARD HALL Rep #: [id number] : 1980 F 43 From: Kamilah Sarah MD PCP: Dr. David Ghotra, Status: REG CLI Study:Breast Limited Unilateral Date of Exam: 12/04/24 Exam# [id number] Ordering Dr: David Ghotra DO EXAM: BREAST LIMITED UNILATERAL; DIAG MAMM [...] be mailed to the patient. Reading Location: [facility] ED CC: Dr. David Ghotra, DO ~ Emt Driver: Signed [facility]09-21-2022 NoteHNO ID: [id number] Author: RT Heidi(R) Service: ? Author Type: Distributor Cleaner Type: Progress Notes Filed: 04/20/2022 4:42 PM [...] PERIPHERAL IV DATA: Not applicable SIGNED BY: Michelle Barber RT(R) April 20, 2022 4:41 [facility]08-02-2022 NoteHNO ID: [id number] Author: Faith Chavez APRN.MASTER OF CEREMONIES Service: ? Author Type: Nurse Practitioner Type: Progress Notes Filed: 03/01/2022 4:30 PM Note Text: BREAST LUMP HISTORY: This is a 41 year old female Presents with breast mass left side, about 10 days Tenderness slight but feeling prick sensation Change in sizeNo Any history breast mass No Caffeine use Yes 1-2 cups/day Last [id number] normal Any previous breast surgery No Any [...] 1 tablet by mouth once daily. - Rtamhbqt-Pz-Ziv-Fe-FA ( VITAMIN) tab Take 1 tablet by [...] and mother who agrees with Imaging Faith Chavez APRN.DOM Medical Decision Making: Problems: Low: Acute, uncomplicated illness or injury Data: Unique test(s) ordered: 2 Risk: Low: Low risk from testing/treatment Medical Decision Making Level: [facility] History of Present illness Narrative* Faith Chavez APRN.CNP - 03/01/2022 3:45 PM EDT BREAST LUMP HISTORY: This is a 41 year old female Presents with breast mass left side, about 10 days Tenderness slight but feeling prick sensation Change in sizeNo Any history breast mass No Caffeine use Yes 1-2 cups/day Last [id number] normal Any previous breast surgery No Any [...] Take 1 tablet by mouth once daily. Whyxpeck-Pw-Ucf-Fe-FA ( VITAMIN) tab Take 1 tablet by [...] and mother who agrees with Imaging Faith Chavez APRN.DOM Medical Decision Making: Problems: Low: Acute, uncomplicated illness or injury Data: Unique test(s) ordered: 2 Risk: Low: Low risk from testing/treatment Medical Decision Making Level: 3 - Low [facility] History of Past illness Narrative* Problem [...] Materna 21 test.TKRN Bleeding in early 02/09/2017 08/0 08/2021 Overview: 02/09/2017 Patient states she has notted [...] of this encounter (statuses as of 03/01/2022) [facility] Author Rebecca Mathews [facility] Note Date/Time January 08, 2025 3:08 pm [facility] Medical Records Department [address] [place] [address] Anesthesia Postop Eval I 01/08/25 1506 MR#: [id number] Acct: [id number] Name: HOWARD HALL Rep #:[id number] : 1980 44 From: Rebecca Mathews CRNA PCP: Dr. David Ghotra, DO Status:REG SDC Y Race: C Location: [place] [address] Anesthesia: Postop Eval I Current Vital Signs [...] Yes 01/08/25 1508 <Electronically signed by Rebecca DeForee st HAT TRIMMER> Date _ Rebecca Mathews HAT TRIMMER Cosigner Signature: Date CC: ~ Signed [facility] Work Phone: Consult note Author Clyde Starks [facility] Note Date/Time January 08, 2025 3:30 pm [facility] Medical Records Department [address] [place] [address] Anesthesia Postop Eval II 01/08/25 1530 MR#: [id number] Acct: [id number] Name: HOWARD HALL Rep #:[id number] : 1980 44 From: Clyde Starks MD PCP: Dr. David Ghotra, DO Status:REG SDC Y Race: C Location: [place] [address] Anesthesia Postop Eval I Sum Postop Eval Completion status Anesthesia document: Postop Eval 1 completed: Yes Anesthesia Postop Eval I Summary Anesthesia Postop Eval I Summary: Anesthesia Postop Eval I: Assessment Summary Airway patent Yes 01/08/25 15:08 HAT TRIMMER.JDEF Spontaneous unlabored Yes 01/08/25 15:08 HAT TRIMMER.JDEF respirations Mental status Awake 01/08/25 15:08 HAT TRIMMER.JDEF nausea No 01/08/25 15:08 HAT TRIMMER.JDEF Vomiting No 01/08/25 15:08 HAT TRIMMER.JDEF Anesthesia Postop Eval I: Fluid Summary Crystalloid volume administer 300 01/08/25 15:08 HAT TRIMMER.JDEF (ml) Colloids volume administered ( ml) Blood Product volume administered (ml) Total IV fluid infused 300 01/08/25 15:08 HAT TRIMMER.JDEF Anesthesia Postop Eval I: Summary Notes Anesthesia Complication No 01/08/25 15:08 HAT TRIMMER.JDEF Anesthesia Complication Comment: Post-operative progress note Anesthesia: Postop Eval II Evaluation Mental status: Awake Pain Level: 0 nausea: No Vomiting: No 01/08/25 1530 <Electronically signed by Clyde Starks MD > Date _ Clyde Starks MD Cosigner Signature: Date CC: ~ Signed [facility] Work Phone: Consult note Author Rebecca Mathews [facility] Note Date/Time January 08, 2025 3:54 pm [facility] Medical Records Department [address] [place] [address] Anesthesia Postop Eval I 01/08/25 1553 MR#: [id number] Acct: [id number] Name: HOWARD HALL Rep #:[id number] : 1980 44 From: Rebecca Mathews HAT TRIMMER PCP: Dr. David Ghotra, DO Status:REG SDC Y Race: C Location: [place] [address] Anesthesia: Postop Eval I Current Vital Signs [...] 01/08/25 1554 <Electronically signed by Rebecca rice HAT TRIMMER> Date _ Rebecca Mathews HAT TRIMMER Cosigner Signature: Date CC: ~ Signed [facility] Work Phone: Discharge summary Author Feliciano Castellon [facility] Note Date/Time January 08, 2025 3:10 pm [facility] Medical Records Department [address] [place] [address] Instructions for Home/Discharge Instructions 01/08/25 1507 MR#: [id number] Acct: [id number] Name: HOWARD HALL Rep #:[id number] : 1980 44 From: Feliciano salazar MD PCP: Dr. David Ghotra, DO Status:REG SDC Discharge Instructions Procedure Gallbladder Diet Discharge Diet: [...] to schedule 2 week follow up appointment. [phone] Test Results: Test results from this visit will be discussed in further detail at your follow- up appointment, if applicable. Discharge Plan Admission Attending Provider: Feliciano Castellon Primary Care Provider: David Ghotra Print Language: Tajik Discharge Orders/Prescriptions Prescriptions: No Action citalopram 40 mg tablet 40 mg PO QDAY Referrals / Follow Up: David Ghotra DO [Primary Care Provider] - Disposition Disposition (needs filled in before D/C Order can be placed): Home, Self Care 01/08/25 1510<Electronically signed by Feliciano Castellon MD>Feliciano Castellon MD CC: Dr. David Ghotra, ~ Signed [facility] Work Phone: Evaluation note* Diagnosis Fibrocystic breast changes, left- Primary Breast pain Mastodynia documented [facility] Author Feliciano Castellon [facility] Note Date/Time January 08, 2025 2:22 pm [facility] Medical Records Department [address] [place] [address] H&P Exam - Surgical 01/08/25 1420 MR#: [id number] Acct: [id number] Name: HOWARD HALL Rep #:[id number] : 1980 44 From: Feliciano salazar MD PCP: Dr. David Ghotra DO Status:REG [facility] Location: [place] [address]1 HPI - General HPI Narrative HOWARD HALL, [...] willing to proceed. Feliciano Castellon MD Pager: [facility] [address] [place] [address], [address] [place] [address] Office: 01/08/25 1422 <Electronically signed by Feliciano Castellon MD> Cosigner Signature (if applicable): CC: Dr. Feliciano Castellon MD; Dr. David Ghotra DO~ Signed [facility] Work Phone: Progress note Author Kelsey Holland [facility] Note Date/Time May 07, 2025 9: 59am [facility] [address] [place] [address] OFFICE VISIT Date of Service: 05/07/25 0904 MR#: [id number] Acct: [id number] Name: HOWARD HALL Rep #: [id number] : 1980 From: Kelsey Morse LAYOUT MECHANIC LAYOUT MECHANIC-C Age/Sex: 44/F Location: [facility] Status: Signed HPI Subjective Date of Service 05/07/25 Chief Complaint Breast cancer on treatment History of Present Illness 44-year-old female menopausal [...] MALIGNANCY. December 10, 2024: A. Left breast, "mass", 9-11 o'clock, 5 CMFN, biopsy: * Invasive [...] in 100% of tumor cells PROGESTERONE RECEPTOR (HI): Positive, strong immunoreactivity in 100% of tumor cells HER2/DIEGO IHC: Positive, (Score 3+) KI67 IHC: 40% B. Left axilla, lymph node, biopsy: * Metastatic mammary carcinoma (See note) Note: The pancytokeratin stain is positive supporting the diagnosis. January 13, 2025 CT chest abdomen and pelvis: IMPRESSION: 1. Known mass in the left breast consistent with carcinoma. 2. There is no evidence of metastatic disease. January 17, 2025 bone scan: IMPRESSION: No evidence of metastatic breast cancer. Echocardiogram: Normal LV size. The left ventricular ejection fraction is 60%. Stage I diastolic dysfunction. The global longitudinal strain is normal. The global longitudinal strain = - 16.7% (normal). Treatment summary and response: TCHP February 13, 2025 Interval History The patient is presenting to clinic for an evaluation anticipating she will begin c4 neoadjuvant TCHP, delayed by 2 weeks d/t patient no-shows. +Fatigue, mild to moderate able to perform self care ADLs. Reports days 3-9 experiences extreme fatigue, nausea- responds to ondansetron, resulting in minimal nutritional intake- and diarrhea (4-6 episodes, responded well to loperamide). Did experience superficial peeling of palms of hands and bottoms of feet. No tenderness, blistering, and erythema. C/o psoriasis involving bottoms of feet. Poorly controlled, cites she has neglected to use moisturizing creams. Appetite fair, PO fluid intake estimated at 16 oz per day. [facility] Medical History Diarrhea due to drug UTI (urinary tract infection) Dysuria Encounter for antineoplastic chemotherapy and immunotherapy Encounter for education Post-menopausal Wears glasses Cancer Depression Anemia Smoker History of edema Regional lymph node metastasis present Anxiety Breast cancer Surgical History History of wisdom tooth extraction Family History Aunt Breast cancer Aunt Breast cancer Aunt Breast cancer Father Brain tumor Uncle Cancer Mother Heart disease Social History Smoking Status: Light Smoker (<10/day) Tobacco: How many years used: 20 alcohol intake: never ROS ROS Narrative Negative except as documented in the interval HPI Intake Vital Signs 04/02/25 09:52 05/07/25 09:06 05/07/25 09:10 Height 5 ft 5 in 5 ft 5 in 5 ft 5 in Weight: 143 lb BMI 23.8 BP 146/92 H Blood Pressure Location Lt brachial Position Sitting Respiration 18 Pulse 88 Pulse Source Monitor Temp 97.5 F L Temperature Source Temporal Artery Pulse Oximetry (%) 99 Oxygen Delivery Method room air Intake Is patient in pain?: No Allergies No Known Allergies Allergy (Verified 05/07/25 09:05) Medications ?Medication ?Instructions ?Recorded ?Confirmed ?Type citalopram 40 mg tablet 40 mg PO QDAY 12/09/2405/07 History lidocaine-prilocaine 2.5 %-2.5 % 1 applic topical ONCE PRN port 02/05/25 05/07/25 Rx topical cream access 30 days #30 grams ondansetron 8 mg disintegrating 8 mg PO Q8H PRN nausea and 02/05/25 05/07/25 Rx tablet vomiting #30 tabs prochlorperazine maleate 10 mg 10 mg PO Q6H PRN nausea and 02/05/25 05/07/25 Rx tablet vomiting #30 tabs MAGIC MOUTH WASH (BMX) 180 mL 15 ml PO .Q6HR #180 mL 0 02/20/25 05/07/25 Rx suspension dexamethasone 4 mg tablet 8 mg (2 x 4 mg) PO .COMPLEX #12 02/20/25 05/07/25 Rx tabs loperamide 2 mg capsule 2 mg PO Q4H PRN loose stool #60 02/20/25 05/07/25 Rx (Anti-Diarrheal (loperamide)) caps Have you fallen in the past year?: No Central Venous Access Central Venous Access: Yes Port/PICC: Port Laboratory Tests 05/07/25 08:52 WBC 5.8 Hgb 9.3 L Hct 28.1 L Plt Count 333 Laboratory Tests 05/07/25 08:52 Sodium 140 Potassium 3.6 Chloride 104 Carbon Dioxide 23.4 BUN 12 Creatinine 0.83 Glucose 98 Calcium 9.5 Total Bilirubin 0.27 AST 22 ALT 21 Alkaline Phosphatase 121 H Albumin 4.1 Exam Physical Exam Narrative ECOG 0-1 Const alert, oriented x3 and no apparent distress General Appearance: comfortable HEENT normocephalic Face and Sinus: normal facial exam Mouth: oral and palatal mucosa normal Eyes General Eye: normal appearance of both eyes Neck no lymphadenopathy and no JVD Chest Chest: vascular access Resp clear to auscultation bilaterally Cardio regular rate and regular rhythm Jugular Venous Distention: Negative for JVD GI soft to palpation, non-tender and non-distended; Negative for hepatosplenomegaly Back/Spine no thoracic nor lumbar tenderness Extremity no clubbing, cyanosis or edema Skin no rashes or lesions noted and no wounds Skin Narrative: Special attention paid to palms of hands and bottoms of feet. Hands without erythema, edema, skin breakdown. Bottoms of feet extremely dry and cracked throughout- patient is adamant, degreeof cracking is consistent with appearance predating docetaxel exposure. Neuro oriented x3, CN's II-XII intact bilaterally, moves all extremities and no focal motor deficits Coordination / Balance: zrkixu-jy-ggcq test normal Speech: speech normal Gait (Neuro): normal gait Psych cooperative Mood & Affect: anxious Coding Level of Care Code Off vis,est,level 4 Exam Problem Focused Diagnoses Malignant neoplasm of overlapping sites of left breast in female, estrogen receptor positive C50.812; Z17.0 Breast location: overlapping sites of breast Estrogen receptor status: positive Patient sex: female Laterality: left Regional lymph node metastasis present C77.9 Anemia D64.9 Assessment and Plan Assessment and Plan (1) Breast cancer: Status: Acute Qualifiers: Breast location: overlapping sites of breast Estrogen receptor status: positive Patient sex: female Laterality: left Qualified Code(s): C50.812 - Malignant neoplasm of overlapping sites of left female breast; Z17.0 - Estrogen receptor positive status [ER+] (2) Regional lymph node metastasis present: Status: Acute (3) Anemia: Status: Chronic Plan 44-year-old female postmenopausal at diagnosis l (amenorrheic for over 1 year, FSH and LH in December 2024 consistent with menopausal status) with clinical stage IIIB (T4 with satellite nodules in the same breast, at least N1, MX) 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 Started February 13, 2025 neoadjuvant systemic chemoimmunotherapy with TCHP. Main toxicities reported are GI (diarrhea, grade 2, manageable) and bone pain from growth factor use and anemia. Chronic comorbid conditions: Smoker, and anxiety. Plan: Based on NCCN guidelines and up-to-date review of treatment of breast cancer: 1. Continue systemic neoadjuvant chemoimmunotherapy with TCHP supported with antiemetics, steroids and growth factor for 6 cycles to be followed by definitive surgery. Treatment is with curative intent. proceed with cycle 4 today. 2. Pretreatment cardiac echo ejection fraction normal at 60%. Repeat every 3 months, next to schedule at the end of the preoperative phase/beginning of postoperative phase. 3. Follow-up in 3 weeks 4. Check for any deficiencies of iron or B12 and correct if confirmed. Clinical Quality Measures Falls Risk Screening/Assistive Devices Have you fallen in the past year?: No 05/07/25 0959 <Electronically signed by Kelsey SHETTYC> Date _ Kelsey GARZA Cosigner Signature: Date (if applicable) CC: ~ [place] [employer] Work Phone: Reason for referral (narrative)* Diagnostic Procedure Only (Routine) - Authorized Specialty Diagnoses / Procedures Referred By Julisa tinoco Referred To Contact [facility] Diagnoses Fibrocystic breast changes, left Breast pain Procedures YARELY DIAGNOSTIC BILAT DIAGNOSTIC MAMMOGRAPHY COMPUTER-AIDED DETCJ BI Faith Chavez APRN.CNP [address] [place] [address] [facility] [address] [place] [id number] Referral ID Status Reason Start Date Expiration Date Visits Requested Visits Authorized [id number] Authorized Auto-Generat ed Referral 03/01/2022 03/31/2023 1 1 * Diagnostic Procedure Only (Routine) - Pending Review Specialty Diagnoses / Procedures Referred By Julisa tinoco Referred To Contact [facility] Diagnoses Fibrocystic breast changes, left Breast pain Procedures US BREAST LTD LT US BREAST UNI REAL TIME WITH IMAGE LIMITED Faith Chavez APRN.CNP [address] [place] [address] [facility] [address] [place] [address] Referral ID Status Reason Start Date Expiration Date Visits Requested Visits Authorized [id number] Pending Review Auto-Generat ed Referral 03/01/2022 03/31/2023 1 1 [facility]ative[facility]No reason for referral information [facility] Work Phone: Summary Purpose Family History No [...] Do you have a Healthcare Power of Field Aide? No January 02, 2025 1:24pm Advance Directive Response Recorded Date/ Time Do you have a Healthcare Power of Field Aide? No January 02, 2025 1:24pm Living Will No February 14, 2025 3:45pm Do you have a Healthcare Power of Field Aide? No February 14, 2025 3:45pm Advance Directives No February 14 3:45pm Advance Directive Response Recorded Date/ Time Do you have a Healthcare Power of Field Aide? No January 02, 2025 1:24pm Living Will No March 12 9:20am Do you have a Healthcare Power of Field Aide? No March 12, 2025 9:20am Advance Directives No March 12, 2025 9:20am Advance Directive Response Recorded Date/ Time Do you have a Healthcare Power of Field Aide? No January 02, 2025 1:24pm Living Will No April 02 10:20am Do you have a Healthcare Power of Field Aide? No April 02, 2025 10:20am Advance Directives No March 10:20am Advance Directive Response Recorded Date/ Time Do you have a Healthcare Power of Field Aide? No January 02, 2025 1:24pm Living Will No May 07 8:58am Do you have a Healthcare Power of Field Aide? No May 07, 2025 8:58am Advance Directives No May 07, 2025 8:58am Chief Complaint and Reason for Visit Chief Complaint Admit Date LUMP LEFT BREAST December 04, 2024 1:56pm BIRADS 5 December 09, 2024 1:07p m Reason for [...] BREAST CANCER January 13, 2025 6:41 am Chief Complaint Admit Date LUMP LEFT BREAST [...] BREAST CANCER January 13, 2025 6:41 am BREAST CANCER January 17, 2025 8:[address]/BONE SCAN January 23, 2025 11:1 6am Reason for Visit Admit Date Left breast mass December 09, 2024 1:07p m Left breast mass December 10, 2024 12:05 pm Breast cancer December 25, 2024 3:54p m Regional lymph node metastasis present M ay 2024 3:54pm Breast cancer January 08, 2025 1:42 pm Encounter for insertion of venous access port January 08, 2025 1:42pm Breast cancer January 23, 2025 11:1 6am Regional lymph node metastasis present J une 2024 11:16am Chief Complaint Admit Date LUMP LEFT BREAST December 04, 2024 1:56pm BIRADS 5 December 09, 2024 1:07p m BREAST BIOPSY December 10, 2024 12:05 pm CORE NEEDLE BIOPSY L BREAST MASS November 13t 2024 12:46pm BREAST CA December 25, 2024 3:54p m BREAST December 25, 2024 4:23p m Insertion, Vascular Port right possible left January 08, 2025 1:42pm Insertion, Vascular Port right possible left January 08, 2025 2:20pm BREAST CANCER January 13, 2025 6:41 am BREAST CANCER January 17, 2025 8:[address]/BONE SCAN January 23, 2025 11:1 6am CHEMO ED February 05, 2025 3:23p m Malignant neoplasm of unspecified site o f unspecif February 05, 2025 4:12pm Reason for Visit Admit Date Left breast mass December 09, 2024 1:07p m Left breast mass December 10, 2024 12:05 pm Breast cancer December 25, 2024 3:54p m Regional lymph node metastasis present M 2024 3:54pm Breast cancer January 08, 2025 1:42 pm Encounter for insertion of venous access port January 08, 2025 1:42pm Breast cancer January 23, 2025 11:1 6am Regional lymph node metastasis present [facility] 2024 11:16am Breast cancer February 05, 2025 3:23p m Encounter for education February 05, 2025 3 :23pm Regional lymph node metastasis present [facility] 2024 3:23pm Chief Complaint Admit Date LUMP LEFT BREAST December 04, 2024 1:56pm BIRADS 5 December 09, 2024 1:07p m BREAST BIOPSY December 10, 2024 12:05 pm CORE NEEDLE BIOPSY L BREAST MASS November 12:46pm BREAST CA December 25, 2024 3:54p m Insertion, Vascular Port right possible left January 08, 2025 1:42pm Insertion, Vascular Port right possible left January 08, 2025 2:20pm BREAST CANCER January 13, 2025 6:41 am BREAST CANCER January 17, 2025 8:[address]/BONE SCAN January 23, 2025 11:1 6am CHEMO ED February 05, 2025 3:23p m Malignant neoplasm of unspecified site o f unspecif February 05, 2025 4:12pm BREAST February 13, 2025 7:00 am [facility] February 13, 2025 7:45am Reason for Visit Admit Date Left breast mass December 09, 2024 1:07p m Left breast mass December 10, 2024 12:05 pm Breast cancer December 25, 2024 3:54p m Regional lymph node metastasis present M ay 2024 3:54pm Breast cancer January 08, 2025 1:42 pm Encounter for insertion of venous access port January 08, 2025 1:42pm Breast cancer January 23, 2025 11:1 6am Regional lymph node metastasis present J [facility] 2024 11:16am Breast cancer February 05, 2025 3:23p m Encounter for education February 05, 2025 3 :23pm Regional lymph node metastasis present J [facility] 2024 3:23pm Breast cancer February 13, 2025 7:45 am Encounter for antineoplastic chemotherap y and immunotherapy February 13, 2025 7:45am Regional lymph node metastasis present J [facility] 2024 7:45am Chief Complaint Admit Date LUMP LEFT BREAST December 04, 2024 1:56pm BIRADS 5 December 09, 2024 1:07p m BREAST BIOPSY December 10, 2024 12:05 pm CORE NEEDLE BIOPSY L BREAST MASS November 12:46pm BREAST CA December 25, 2024 3:54p m Insertion, Vascular Port right possible left January 08, 2025 1:42pm Insertion, Vascular Port right possible left January 08, 2025 2:20pm BREAST CANCER January 13, 2025 6:41 am BREAST CANCER January 17, 2025 8:[address]/BONE SCAN January 23, 2025 11:1 6am CHEMO ED February 05, 2025 3:23p m Malignant neoplasm of unspecified site o f unspecif February 05, 2025 4:12pm [facility] February 13, 2025 7:45am HYDRATION February 20, 2025 11:0 0am TOX CHECK - LABS February 20, 2025 2:49 pm Chief Complaint Admit Date LUMP LEFT BREAST December 04, 2024 1:56pm BIRADS 5 December 09, 2024 1:07p m BREAST BIOPSY December 10, 2024 12:05 pm CORE NEEDLE BIOPSY L BREAST MASS November 12:46pm BREAST CA December 25, 2024 3:54p m Insertion, Vascular Port right possible left January 08, 2025 1:42pm Insertion, Vascular Port right possible left January 08, 2025 2:20pm BREAST CANCER January 13, 2025 6:41 am BREAST CANCER January 17, 2025 8:[address]/BONE SCAN January 23, 2025 11:1 6am CHEMO ED February 05, 2025 3:23p m Malignant neoplasm of unspecified site o f unspecif February 05, 2025 4:12pm [facility] February 13, 2025 7:45am TOX CHECK - LABS February 20, 2025 2:49 pm growth factor March 12, 2025 8: 00am 3 [facility] - [facility] March 12, 2025 8: 04am Reason for Visit Admit Date Left breast mass December 09, 2024 1:07p m Left breast mass December 10, 2024 12:05 pm Breast cancer December 25, 2024 3:54p m Regional lymph node metastasis present M ay 2024 3:54pm Breast cancer January 08, 2025 1:42 pm Encounter for insertion of venous access port January 08, 2025 1:42pm Breast cancer January 23, 2025 11:1 6am Regional lymph node metastasis present J [facility] 2024 11:16am Breast cancer February 05, 2025 3:23p m Encounter for education February 05, 2025 3 :23pm Regional lymph node metastasis present J [facility] 2024 3:23pm Breast cancer February 13, 2025 7:45 am Encounter for antineoplastic chemotherap y and immunotherapy February 13, 2025 7:45am Regional lymph node metastasis present J [facility] 2024 7:45am Breast cancer February 20, 2025 2:49 pm Diarrhea due to drug February 20, 2025 2:4 9pm Dysuria February 20, 2025 2:49 pm Regional lymph node metastasis present J [facility] 2024 2:49pm Breast cancer March 12, 2025 8: 04am Regional lymph node metastasis present A ugust 2024 8:04am Chief Complaint Admit Date LUMP LEFT BREAST December 04, 2024 1:56pm BIRADS 5 December 09, 2024 1:07p m BREAST BIOPSY December 10, 2024 12:05 pm CORE NEEDLE BIOPSY L BREAST MASS November 12:46pm BREAST CA December 25, 2024 3:54p m Insertion, Vascular Port right possible left January 08, 2025 1:42pm Insertion, Vascular Port right possible left January 08, 2025 2:20pm BREAST CANCER January 13, 2025 6:41 am BREAST CANCER January 17, 2025 8:[address]/BONE SCAN January 23, 2025 11:1 6am CHEMO ED February 05, 2025 3:23p m Malignant neoplasm of unspecified site o f unspecif February 05, 2025 4:12pm [facility] February 13, 2025 7:45am TOX CHECK - LABS February 20, 2025 2:49 pm 3 [facility] - [facility] March 12, 2025 8: 04am growth factor April 02, 2025 8:15am [facility] [place] April 02, 2025 8:51am Reason for Visit Admit Date Left breast mass December 09, 2024 1:07p m Left breast mass December 10, 2024 12:05 pm Breast cancer December 25, 2024 3:54p m Regional lymph node metastasis present M ay 2024 3:54pm Breast cancer January 08, 2025 1:42 pm Encounter for insertion of venous access port January 08, 2025 1:42pm Breast cancer January 23, 2025 11:1 6am Regional lymph node metastasis present J [facility] 2024 11:16am Breast cancer February 05, 2025 3:23p m Encounter for education February 05, 2025 3 :23pm Regional lymph node metastasis present J [facility] 2024 3:23pm Breast cancer February 13, 2025 7:45 am Encounter for antineoplastic chemotherapy and immunotherapy February 13, 2025 7:45am Regional lymph node metastasis present J [facility] 2024 7:45am Breast cancer February 20, 2025 2:49 pm Diarrhea due to drug February 20, 2025 2:4 9pm Dysuria February 20, 2025 2:49 pm Regional lymph node metastasis present J [facility] 2024 2:49pm Breast cancer March 12, 2025 8: 04am Regional lymph node metastasis present A ugust 2024 8:04am Breast cancer April 02, 2025 8:51am Regional lymph node metastasis present S eptember 2024 8:51am Anemia April 02, 2025 8:51am Chief Complaint Admit Date Insertion, Vascular Port right possible left January 08, 2025 1:42pm Insertion, Vascular Port right possible left January 08, 2025 2:20pm BREAST CANCER January 13, 2025 6:41 am BREAST CANCER January 17, 2025 8:[address]/BONE SCAN January 23, 2025 11:1 6am CHEMO ED February 05, 2025 3:23p m Malignant neoplasm of unspecified site o f unspecif February 05, 2025 4:12pm [facility] February 13, 2025 7:45am TOX CHECK - LABS February 20, 2025 2:49 pm 3 [facility] - [facility] March 12, 2025 8: 04am [facility] [place] April 02, 2025 8:51am growth factor May 07, 2025 7: 30am 3 [facility] - [facility] May 07, 2025 8: 47am Reason for Visit Admit Date Breast cancer January 08, 2025 1:42 pm Encounter for insertion of venous access port January 08, 2025 1:42pm Breast cancer January 23, 2025 11:1 6am Regional lymph node metastasis present J [facility] 2024 11:16am Breast cancer February 05, 2025 3:23p m Encounter for education February 05, 2025 3 :23pm Regional lymph node metastasis present J [facility] 2024 3:23pm Breast cancer February 13, 2025 7:45 am Encounter for antineoplastic chemotherapy and immunotherapy February 13, 2025 7:45am Regional lymph node metastasis present J [facility] 2024 7:45am Breast cancer February 20, 2025 2:49 pm Diarrhea due to drug February 20, 2025 2:4 9pm Dysuria February 20, 2025 2:49 pm Regional lymph node metastasis present J huong 2024 2:49pm Breast cancer March 12, 2025 8: 04am Regional lymph node metastasis present A ugust 2024 8:04am Breast cancer April 02, 2025 8:51am Regional lymph node metastasis present S eptember 2024 8:51am Anemia April 02, 2025 8:51am Breast cancer May 07, 2025 8: 47am Regional lymph node metastasis present O ctober 2024 8:47am Anemia May 07, 2025 8: 47am Additional Source Comments Source Comments (unrecognize d section and content) In the event this informatio n is protected by the Federal Confidentiality of Alcohol and Drug Abuse Patient Records regulations: The Federal rules restrict any use of the information to criminally investigate or prosecute any alcohol or drug abuse patient.[facility] Reason for Visit (unrecogniz ed section and content) Reason Comments left breast lump Care Teams (unrecognized sec tion and content) [employer] Relationship Specialty Start Date End Date David Ghotra DO PCP - General Family Practice 02/23/16 Team Status: Active Member Role Status Dates Dr. David Ghotra DO Primary Care Provider Active Team Status: Inactive Member Role Status Dates Dr. David Ghotra DO Primary Care Provider Active Start: November 14, 2024 End: November 14, 2024 Dr. David Ghotra DO Attending Provider Active Start: November 14, 2024 End: November 14, 2024 Team Status: Inactive Member Role Status Dates Dr. David Ghotra DO Primary Care Provider Active Start: December 04, 2024 End: December 04, 2024 Dr. David Ghotra DO Attending Provider Active Start: December 04, 2024 End: December 04, 2024 Dr. David Ghotra DO Referring Provider Active Start: December 04, 2024 End: December 04, 2024 Team Status: Inactive Member Role Status Dates Dr. David Ghotra DO Primary Care Provider Active Start: December 09, 2024 End: December 09, 2024 Dr. David Ghotra DO Referring Provider Active Start: December 09, 2024 End: December 09, 2024 Dr. Feliciano Castellon MD Attending Provider Active Start: December 09, 2024 End: December 09, 2024 Team Status: Inactive Member Role Status Dates Dr. David Ghotra DO Primary Care Provider Active Start: December 10, 2024 End: December 10, 2024 Dr. David Ghotra DO Referring Provider Active Start: December 10, 2024 End: December 10, 2024 Dr. Feliciano Castellon MD Attending Provider Active Start: December 10, 2024 End: December 10, 2024 Team Status: Inactive Member Role Status Dates Dr. David Ghotra DO Primary Care Provider Active Start: December 10, 2024 End: December 10, 2024 Dr. Feliciano Castellon MD Attending Provider Active Start: December 10, 2024 End: December 10, 2024 Dr. Feliciano Castellon MD Referring Provider Active Start: December 10, 2024 End: December 10, 2024 Team Status: Inactive Member Role Status Dates Dr. David Ghotra DO Primary Care Provider Active Start: December 25, 2024 End: December 25, 2024 Dr. Arnaud Borja MD Attending Provider Active Start: December 25, 2024 End: December 25, 2024 Dr. Feliciano Castellon MD Referring Provider Active Start: December 25, 2024 End: December 25, 2024 Team Status: Active Member Role Status Dates Dr. David Ghotra DO Primary Care Provider Active Start: December 25, 2024 Dr. Arnaud Borja MD Attending Provider Active Start: December 25, 2024 Dr. Arnaud Borja MD Referring Provider Active Start: December 25, 2024 Team Status: Inactive Member Role Status Dates Dr. David Ghotra DO Primary Care Provider Active Start: January 08, 2025 End: January 08, 2025 Dr. Feliciano Castellon MD Attending Provider Active Start: January 08, 2025 End: January 08, 2025 Dr. Feliciano Castellon MD Referring Provider Active Start: January 08, 2025 End: January 08, 2025 Team Status: Active Member Role Status Dates Dr. David Ghotra DO Primary Care Provider Active Start: January 08, 2025 Dr. Feliciano Castellon MD Attending Provider Active Start: January 08, 2025 Dr. Feliciano Castellon MD Referring Provider Active Start: January 08, 2025 Dr. Feliciano Castellon MD Other Provider Active Start: January 08, 2025 Team Status: Inactive Member Role Status Dates Dr. David Ghotra DO Primary Care Provider Active Start: January 13, 2025 End: January 13, 2025 Dr. Arnaud Borja MD Attending Provider Active Start: January 13, 2025 End: January 13, 2025 Dr. Arnaud Borja MD Referring Provider Active Start: January 13, 2025 End: January 13, 2025 Team Status: Active Member Role Status Dates Dr. David Ghotra DO Primary Care Provider Active Start: January 17, 2025 Dr. Arnaud Borja MD Attending Provider Active Start: January 17, 2025 Dr. Arnaud Borja MD Referring Provider Active Start: January 17, 2025 Team Status: Inactive Member Role Status Dates Dr. David Ghotra DO Primary Care Provider Active Start: January 23, 2025 End: January 23, 2025 Dr. David Ghotra DO Referring Provider Active Start: January 23, 2025 End: January 23, 2025 Dr. Arnaud Borja MD Attending Provider Active Start: January 23, 2025 End: January 23, 2025 Team Status: Active Member Role/Relationship Status Dates Dr. David Ghotra DO Primary Care Provider Active Team Status: Inactive Member Role/Relationship Status Dates Dr. David Ghotra DO Primary Care Provider Active Start: November 14, 2024 End: November 14, 2024 Dr. David Ghotra DO Attending Provider Active Start: November 14, 2024 End: November 14, 2024 Team Status: Inactive Member Role/Relationship Status Dates Dr. David Ghotra DO Primary Care Provider Active Start: December 04, 2024 End: December 04, 2024 Dr. David Ghotra DO Attending Provider Active Start: December 04, 2024 End: December 04, 2024 Dr. David Ghotra DO Referring Provider Active Start: December 04, 2024 End: December 04, 2024 Team Status: Inactive Member Role/Relationship Status Dates Dr. David Ghotra DO Primary Care Provider Active Start: December 09, 2024 End: December 09, 2024 Dr. David Ghotra DO Referring Provider Active Start: December 09, 2024 End: December 09, 2024 Dr. Feliciano Castellon MD Attending Provider Active Start: December 09, 2024 End: December 09, 2024 Team Status: Inactive Member Role/Relationship Status Dates Dr. David Ghotra DO Primary Care Provider Active Start: December 10, 2024 End: December 10, 2024 Dr. David Ghotra DO Referring Provider Active Start: December 10, 2024 End: December 10, 2024 Dr. Feliciano Castellon MD Attending Provider Active Start: December 10, 2024 End: December 10, 2024 Team Status: Inactive Member Role/Relationship Status Dates Dr. David Ghotra DO Primary Care Provider Active Start: December 10, 2024 End: December 10, 2024 Dr. Feliciano Castellon MD Attending Provider Active Start: December 10, 2024 End: December 10, 2024 Dr. Feliciano Castellon MD Referring Provider Active Start: December 10, 2024 End: December 10, 2024 Team Status: Inactive Member Role/Relationship Status Dates Dr. David Ghotra DO Primary Care Provider Active Start: December 25, 2024 End: December 25, 2024 Dr. Arnaud Borja MD Attending Provider Active Start: December 25, 2024 End: December 25, 2024 Dr. Feliciano Castellon MD Referring Provider Active Start: December 25, 2024 End: December 25, 2024 Team Status: Active Member Role/Relationship Status Dates Dr. David Ghotra DO Primary Care Provider Active Start: December 25, 2024 Dr. Arnaud Borja MD Attending Provider Active Start: December 25, 2024 Dr. Arnaud Borja MD Referring Provider Active Start: December 25, 2024 Team Status: Inactive Member Role/Relationship Status Dates Dr. David Ghotra DO Primary Care Provider Active Start: January 08, 2025 End: January 08, 2025 Dr. Feliciano Castellon MD Attending Provider Active Start: January 08, 2025 End: January 08, 2025 Dr. Feliciano Castellon MD Referring Provider Active Start: January 08, 2025 End: January 08, 2025 Team Status: Active Member Role/Relationship Status Dates Dr. David Ghotra DO Primary Care Provider Active Start: January 08, 2025 Dr. Feliciano Castellon MD Attending Provider Active Start: January 08, 2025 Dr. Feliciano Castellon MD Referring Provider Active Start: January 08, 2025 Dr. Feliciano Castellon MD Other Provider Active Start: January 08, 2025 Team Status: Inactive Member Role/Relationship Status Dates Dr. David Ghotra DO Primary Care Provider Active Start: January 13, 2025 End: January 13, 2025 Dr. Arnaud Borja MD Attending Provider Active Start: January 13, 2025 End: January 13, 2025 Dr. Arnaud Borja MD Referring Provider Active Start: January 13, 2025 End: January 13, 2025 Team Status: Inactive Member Role/Relationship Status Dates Dr. David Ghotra DO Primary Care Provider Active Start: January 17, 2025 End: January 17, 2025 Dr. Arnaud Borja MD Attending Provider Active Start: January 17, 2025 End: January 17, 2025 Dr. Arnaud Borja MD Referring Provider Active Start: January 17, 2025 End: January 17, 2025 Team Status: Inactive Member Role/Relationship Status Dates Dr. David Ghotra DO Primary Care Provider Active Start: January 23, 2025 End: January 23, 2025 Dr. David Ghotra DO Referring Provider Active Start: January 23, 2025 End: January 23, 2025 Dr. Arnaud Borja MD Attending Provider Active Start: January 23, 2025 End: January 23, 2025 Team Status: Inactive Member Role/Relationship Status Dates Dr. David Ghotra DO Primary Care Provider Active Start: February 05, 2025 End: February 05, 2025 Dr. David Ghotra DO Referring Provider Active Start: February 05, 2025 End: February 05, 2025 Kelsey Holland NP, LAYOUT MECHANIC-C Attending Provider Active Start: February 05, 2025 End: February 05, 2025 Team Status: Active Member Role/Relationship Status Dates Dr. David Ghotra DO Primary Care Provider Active Start: February 05, 2025 Dr. Arnaud Borja MD Attending Provider Active Start: February 05, 2025 Dr. Arnaud Borja MD Referring Provider Active Start: February 05, 2025 Team Status: Inactive Member Role/Relationship Status Dates Dr. David Ghotra DO Primary Care Provider Active Start: February 05, 2025 End: February 05, 2025 Dr. Arnaud Borja MD Attending Provider Active Start: February 05, 2025 End: February 05, 2025 Dr. Arnaud Borja MD Referring Provider Active Start: February 05, 2025 End: February 05, 2025 Team Status: Active Member Role/Relationship Status Dates Dr. David Ghotra DO Primary Care Provider Active Start: February 05, 2025 Dr. Cirilo Centeno MD Attending Provider Active S tart: February 05, 2025 Team Status: Inactive Member Role/Relationship Status Dates Dr. David Ghotra DO Primary Care Provider Active Start: January 08, 2025 End: January 08, 2025 Dr. Feliciano Castellon MD Attending Provider Active Start: January 08, 2025 End: January 08, 2025 Dr. Feliciano Castellon MD Referring Provider Active Start: January 08, 2025 End: January 08, 2025 Team Status: Active Member Role/Relationship Status Dates Dr. David Ghotra DO Primary Care Provider Active Start: January 08, 2025 Dr. Feliciano Castellon MD Attending Provider Active Start: January 08, 2025 Dr. Feliciano Castellon MD Referring Provider Active Start: January 08, 2025 Dr. Feliciano Castellon MD Other Provider Active Start: January 08, 2025 Team Status: Inactive Member Role/Relationship Status Dates Dr. David Ghotra DO Primary Care Provider Active Start: January 13, 2025 End: January 13, 2025 Dr. Arnaud Borja MD Attending Provider Active Start: January 13, 2025 End: January 13, 2025 Dr. Arnaud Borja MD Referring Provider Active Start: January 13, 2025 End: January 13, 2025 Team Status: Inactive Member Role/Relationship Status Dates Dr. David Ghotra DO Primary Care Provider Active Start: January 17, 2025 End: January 17, 2025 Dr. Arnaud Borja MD Attending Provider Active Start: January 17, 2025 End: January 17, 2025 Dr. Arnaud Borja MD Referring Provider Active Start: January 17, 2025 End: January 17, 2025 Team Status: Inactive Member Role/Relationship Status Dates Dr. David Ghotra DO Primary Care Provider Active Start: January 23, 2025 End: January 23, 2025 Dr. David Ghotra DO Referring Provider Active Start: January 23, 2025 End: January 23, 2025 Dr. Arnaud Borja MD Attending Provider Active Start: January 23, 2025 End: January 23, 2025 Team Status: Inactive Member Role/Relationship Status Dates Dr. David Ghotra DO Primary Care Provider Active Start: February 05, 2025 End: February 05, 2025 Dr. David Ghotra DO Referring Provider Active Start: February 05, 2025 End: February 05, 2025 Kelsey Holland LAYOUT MECHANIC, LAYOUT MECHANIC-C Attending Provider Active Start: February 05, 2025 End: February 05, 2025 Team Status: Inactive Member Role/Relationship Status Dates Dr. David Ghotra DO Primary Care Provider Active Start: February 05, 2025 End: February 05, 2025 Dr. Arnaud Borja MD Attending Provider Active Start: February 05, 2025 End: February 05, 2025 Dr. Arnaud Borja MD Referring Provider Active Start: February 05, 2025 End: February 05, 2025 Team Status: Active Member Role/Relationship Status Dates Dr. David Ghotra DO Primary Care Provider Active Start: February 05, 2025 Dr. Cirilo Centeno MD Attending Provider Active S tart: February 05, 2025 Team Status: Active Member Role/Relationship Status Dates Dr. David Ghotra DO Primary Care Provider Active Start: February 13, 2025 Dr. Arnaud Borja MD Attending Provider Active Start: February 13, 2025 Dr. Arnaud Borja MD Referring Provider Active Start: February 13, 2025 Team Status: Inactive Member Role/Relationship Status Dates Dr. David Ghotra DO Primary Care Provider Active Start: February 13, 2025 End: February 13, 2025 Dr. David Ghotra DO Referring Provider Active Start: February 13, 2025 End: February 13, 2025 Kelsey Holland LAYOUT MECHANIC, LAYOUT MECHANIC-C Attending Provider Active Start: February 13, 2025 End: February 13, 2025 Team Status: Inactive Member Role/Relationship Status Dates Dr. David Ghotra DO Primary Care Provider Active Start: February 13, 2025 End: February 13, 2025 Dr. David Ghotra DO Referring Provider Active Start: February 13, 2025 End: February 13, 2025 Kelsey Holland LAYOUT MECHANIC, LAYOUT MECHANIC-C Attending Provider Active Start: February 13, 2025 End: February 13, 2025 Team Status: Active Member Role/Relationship Status Dates Dr. David Ghotra DO Primary Care Provider Active Start: February 20, 2025 Dr. Arnaud Borja MD Attending Provider Active Start: February 20, 2025 Dr. Arnaud Borja MD Referring Provider Active Start: February 20, 2025 Team Status: Inactive Member Role/Relationship Status Dates Dr. David Ghotra DO Primary Care Provider Active Start: February 20, 2025 End: February 20, 2025 Dr. David Ghotra DO Referring Provider Active Start: February 20, 2025 End: February 20, 2025 Kelsey Holland LAYOUT MECHANIC, LAYOUT MECHANIC-C Attending Provider Active Start: February 20, 2025 End: February 20, 2025 Team Status: Inactive Member Role/Relationship Status Dates Dr. David Ghotra DO Primary Care Provider Active Start: February 20, 2025 End: February 20, 2025 Dr. David Ghotra DO Referring Provider Active Start: February 20, 2025 End: February 20, 2025 Kelsey Amalia LAYOUT MECHANIC, LAYOUT MECHANIC-C Attending Provider Active Start: February 20, 2025 End: February 20, 2025 Team Status: Active Member Role/Relationship Status Dates Dr. David Ghotra DO Primary Care Provider Active Start: March 12, 2025 Dr. Arnaud Borja MD Attending Provider Active Start: March 12, 2025 Dr. Arnaud Borja MD Referring Provider Active Start: March 12, 2025 Team Status: Inactive Member Role/Relationship Status Dates Dr. David Ghotra DO Primary Care Provider Active Start: March 12, 2025 End: March 12, 2025 Dr. David Ghotra DO Referring Provider Active Start: March 12, 2025 End: March 12, 2025 Dr. Arnaud Borja MD Attending Provider Active Start: March 12, 2025 End: March 12, 2025 Team Status: Inactive Member Role/Relationship Status Dates Dr. David Ghotra DO Primary Care Provider Active Start: December 04, 2024 End: December 04, 2024 Dr. David Ghotra DO Attending Provider Active Start: December 04, 2024 End: December 04, 2024 Dr. David Ghotra DO Referring Provider Active Start: December 04, 2024 End: December 04, 2024 Team Status: Inactive Member Role/Relationship Status Dates Dr. David Ghotra DO Primary Care Provider Active Start: December 09, 2024 End: December 09, 2024 Dr. David Ghotra DO Referring Provider Active Start: December 09, 2024 End: December 09, 2024 Dr. Feliciano Castellon MD Attending Provider Active Start: December 09, 2024 End: December 09, 2024 Team Status: Inactive Member Role/Relationship Status Dates Dr. David Ghotra DO Primary Care Provider Active Start: December 10, 2024 End: December 10, 2024 Dr. David Ghotra DO Referring Provider Active Start: December 10, 2024 End: December 10, 2024 Dr. Feliciano Castellon MD Attending Provider Active Start: December 10, 2024 End: December 10, 2024 Team Status: Inactive Member Role/Relationship Status Dates Dr. David Ghotra DO Primary Care Provider Active Start: December 10, 2024 End: December 10, 2024 Dr. Feliciano Castellon MD Attending Provider Active Start: December 10, 2024 End: December 10, 2024 Dr. Feliciano Castellon MD Referring Provider Active Start: December 10, 2024 End: December 10, 2024 Team Status: Inactive Member Role/Relationship Status Dates Dr. David Ghotra DO Primary Care Provider Active Start: December 25, 2024 End: December 25, 2024 Dr. Arnaud Borja MD Attending Provider Active Start: December 25, 2024 End: December 25, 2024 Dr. Feliciano Castellon MD Referring Provider Active Start: December 25, 2024 End: December 25, 2024 Team Status: Inactive Member Role/Relationship Status Dates Dr. David Ghotra DO Primary Care Provider Active Start: January 08, 2025 End: January 08, 2025 Dr. Feliciano Castellon MD Attending Provider Active Start: January 08, 2025 End: January 08, 2025 Dr. Feliciano Castellon MD Referring Provider Active Start: January 08, 2025 End: January 08, 2025 Team Status: Active Member Role/Relationship Status Dates Dr. David Ghotra DO Primary Care Provider Active Start: January 08, 2025 Dr. Feliciano Castellon MD Attending Provider Active Start: January 08, 2025 Dr. Feliciano Castellon MD Referring Provider Active Start: January 08, 2025 Dr. Feliciano Castellon MD Other Provider Active Start: January 08, 2025 Team Status: Inactive Member Role/Relationship Status Dates Dr. David Ghotra DO Primary Care Provider Active Start: January 13, 2025 End: January 13, 2025 Dr. Arnaud Borja MD Attending Provider Active Start: January 13, 2025 End: January 13, 2025 Dr. Arnaud Borja MD Referring Provider Active Start: January 13, 2025 End: January 13, 2025 Team Status: Inactive Member Role/Relationship Status Dates Dr. David Ghotra DO Primary Care Provider Active Start: January 17, 2025 End: January 17, 2025 Dr. Arnaud Borja MD Attending Provider Active Start: January 17, 2025 End: January 17, 2025 Dr. Arnaud Borja MD Referring Provider Active Start: January 17, 2025 End: January 17, 2025 Team Status: Inactive Member Role/Relationship Status Dates Dr. David Ghotra DO Primary Care Provider Active Start: January 23, 2025 End: January 23, 2025 Dr. David Ghotra DO Referring Provider Active Start: January 23, 2025 End: January 23, 2025 Dr. Arnaud Borja MD Attending Provider Active Start: January 23, 2025 End: January 23, 2025 Team Status: Inactive Member Role/Relationship Status Dates Dr. David Ghotra DO Primary Care Provider Active Start: February 05, 2025 End: February 05, 2025 Dr. David Ghotra DO Referring Provider Active Start: February 05, 2025 End: February 05, 2025 Kelseycarmen Holland LAYOUT MECHANIC, LAYOUT MECHANIC-C Attending Provider Active Start: February 05, 2025 End: February 05, 2025 Team Status: Inactive Member Role/Relationship Status Dates Dr. David Ghotra DO Primary Care Provider Active Start: February 05, 2025 End: February 05, 2025 Dr. Arnaud Borja MD Attending Provider Active Start: February 05, 2025 End: February 05, 2025 Dr. Arnaud Borja MD Referring Provider Active Start: February 05, 2025 End: February 05, 2025 Team Status: Active Member Role/Relationship Status Dates Dr. David Ghotra DO Primary Care Provider Active Start: February 05, 2025 Dr. Cirilo Centeno MD Attending Provider Active S tart: February 05, 2025 Team Status: Inactive Member Role/Relationship Status Dates Dr. David Ghotra DO Primary Care Provider Active Start: February 13, 2025 End: February 13, 2025 Dr. David Ghotra DO Referring Provider Active Start: February 13, 2025 End: February 13, 2025 Kelsey Amalia LAYOUT MECHANIC, LAYOUT MECHANIC-C Attending Provider Active Start: February 13, 2025 End: February 13, 2025 Team Status: Inactive Member Role/Relationship Status Dates Dr. David Ghotra DO Primary Care Provider Active Start: February 20, 2025 End: February 20, 2025 Dr. David Ghotra DO Referring Provider Active Start: February 20, 2025 End: February 20, 2025 Kelsey Amalia LAYOUT MECHANIC, LAYOUT MECHANIC-C Attending Provider Active Start: February 20, 2025 End: February 20, 2025 Team Status: Inactive Member Role/Relationship Status Dates Dr. David Ghotra DO Primary Care Provider Active Start: March 12, 2025 End: March 12, 2025 Dr. David Ghotra DO Referring Provider Active Start: March 12, 2025 End: March 12, 2025 Dr. Arnaud Borja MD Attending Provider Active Start: March 12, 2025 End: March 12, 2025 Team Status: Active Member Role/Relationship Status Dates Dr. David Ghotra DO Primary Care Provider Active Start: April 02, 2025 Dr. Arnaud Borja MD Attending Provider Active Start: April 02, 2025 Dr. Arnaud Borja MD Referring Provider Active Start: April 02, 2025 Team Status: Inactive Member Role/Relationship Status Dates Dr. David Ghotra DO Primary Care Provider Active Start: April 02, 2025 End: April 02, 2025 Dr. David Ghotra DO Referring Provider Active Start: April 02, 2025 End: April 02, 2025 Dr. Arnaud Borja MD Attending Provider Active Start: April 02, 2025 End: April 02, 2025 Team Status: Active Member Role/Relationship Status Dates Dr. David Ghotra DO Primary care physician Active Team Status: Inactive Member Role/Relationship Status Dates Dr. David Ghotra DO Primary care physician Active Start: January 08, 2025 End: January 08, 2025 Dr. Feliciano Castellon MD Attending physician Active Start: January 08, 2025 End: January 08, 2025 Dr. Feliciano Csatellon MD Referring Provider Active Start: January 08, 2025 End: January 08, 2025 Team Status: Active Member Role/Relationship Status Dates Dr. David Ghotra DO Primary care physician Active Start: January 08, 2025 Dr. Feliciano Castellon MD Attending physician Active Start: January 08, 2025 Dr. Feliciano Castellon MD Referring Provider Active Start: January 08, 2025 Dr. Feliciano Castellon MD Nurse Practitioner Active Start: January 08, 2025 Team Status: Inactive Member Role/Relationship Status Dates Dr. David Ghotra DO Primary care physician Active Start: January 13, 2025 End: January 13, 2025 Dr. Arnaud Borja MD Attending physician Active Start: January 13, 2025 End: January 13, 2025 Dr. Arnaud Borja MD Referring Provider Active Start: January 13, 2025 End: January 13, 2025 Team Status: Inactive Member Role/Relationship Status Dates Dr. David Ghotra DO Primary care physician Active Start: January 17, 2025 End: January 17, 2025 Dr. Arnaud Borja MD Attending physician Active Start: January 17, 2025 End: January 17, 2025 Dr. Arnaud Borja MD Referring Provider Active Start: January 17, 2025 End: January 17, 2025 Team Status: Inactive Member Role/Relationship Status Dates Dr. David Ghotra DO Primary care physician Active Start: January 23, 2025 End: January 23, 2025 Dr. David Ghotra DO Referring Provider Active Start: January 23, 2025 End: January 23, 2025 Dr. Arnaud Borja MD Attending physician Active Start: January 23, 2025 End: January 23, 2025 Team Status: Inactive Member Role/Relationship Status Dates Dr. David Ghotra DO Primary care physician Active Start: February 05, 2025 End: February 05, 2025 Dr. David Ghotra DO Referring Provider Active Start: February 05, 2025 End: February 05, 2025 Kelsey Holland NP, LAYOUT MECHANIC-C Attending physician Active Start: February 05, 2025 End: February 05, 2025 Team Status: Inactive Member Role/Relationship Status Dates Dr. David Ghotra DO Primary care physician Active Start: February 05, 2025 End: February 05, 2025 Dr. Arnaud Borja MD Attending physician Active Start: February 05, 2025 End: February 05, 2025 Dr. Arnaud Borja MD Referring Provider Active Start: February 05, 2025 End: February 05, 2025 Team Status: Active Member Role/Relationship Status Dates Dr. David Ghotra DO Primary care physician Active Start: February 05, 2025 Dr. Cirilo Centeno MD Attending physician Active Start: February 05, 2025 Team Status: Inactive Member Role/Relationship Status Dates Dr. David Ghotra DO Primary care physician Active Start: February 13, 2025 End: February 13, 2025 Dr. David Ghotra DO Referring Provider Active Start: February 13, 2025 End: February 13, 2025 Kelsey Holland LAYOUT MECHANIC, LAYOUT MECHANIC-C Attending physician Active Start: February 13, 2025 End: February 13, 2025 Team Status: Inactive Member Role/Relationship Status Dates Dr. David Ghotra DO Primary care physician Active Start: February 20, 2025 End: February 20, 2025 Dr. David Ghotra DO Referring Provider Active Start: February 20, 2025 End: February 20, 2025 Kelsey Holland LAYOUT MECHANIC, LAYOUT MECHANIC-C Attending physician Active Start: February 20, 2025 End: February 20, 2025 Team Status: Inactive Member Role/Relationship Status Dates Dr. David Ghotra DO Primary care physician Active Start: March 12, 2025 End: March 12, 2025 Dr. David Ghotra DO Referring Provider Active Start: March 12, 2025 End: March 12, 2025 Dr. Arnaud Borja MD Attending physician Active Start: March 12, 2025 End: March 12, 2025 Team Status: Inactive Member Role/Relationship Status Dates Dr. David Ghotra DO Primary care physician Active Start: April 02, 2025 End: April 02, 2025 Dr. David Ghotra DO Referring Provider Active Start: April 02, 2025 End: April 02, 2025 Dr. Arnaud Borja MD Attending physician Active Start: April 02, 2025 End: April 02, 2025 Team Status: Active Member Role/Relationship Status Dates Dr. David Ghotra DO Primary care physician Active Start: May 07, 2025 Dr. Arnaud Borja MD Attending physician Active Start: May 07, 2025 Dr. Arnaud Borja MD Referring Provider Active Start: May 07, 2025 Team Status: Inactive Member Role/Relationship Status Dates Dr. David Ghotra DO Primary care physician Active Start: May 07, 2025 End: May 07, 2025 Dr. David Ghotra DO Referring Provider Active Start: May 07, 2025 End: May 07, 2025 Kelsey Holland LAYOUT MECHANIC, LAYOUT MECHANIC-C Attending physician Active Start: May 07, 2025 End: May 07, 2025 INFORMATION SOURCE (unrecogn ized section and content) DATE CREATED AUTHOR 05/01/2022 [facility] DATE CREATED AUTHOR AUTHOR'S ORGANIZ ATION 05/22/2025 [facility] DATE CREATED AUTHOR AUTHOR'S ORGANIZ ATION 06/07/2025 [facility] Goals (unrecognized section and content) Goals [...] BE BASED ON THE PRIMARY CLINICAL RECORDS. [employer] provides no warranty or guarantee of the accuracy or completeness of information in this document.
--- NOTE | 2025-06-28 00:50 | RAD_ITS ---
PROCEDURE: CHEST 1 VIEW (PORTABLE) 06/28/2025 REASON FOR EXAM: CANCER AND FEVER TECHNIQUE: Frontal view of the chest. COMPARISON: CT scan on 01/13/2025. FINDINGS: Right Port-A-Cath is in good position with its tip in the superior vena cava. Interval appearance of mild bilateral basilar atelectatic pulmonary changes. There is no demonstrated pleural abnormality. Normal heart and pericardium. Normal mediastinum and marquise. Normal visualized pulmonary arteries. Normal visualized aortic arch and descending thoracic aorta. Normal visualized thoracic spine. Normal visualized ribs, clavicles, and shoulders. There is no demonstrated abnormality of the visualized soft tissue structures of the upper abdomen. RAD/Chest 1 View (Portable) IMPRESSION: Interval appearance of bilateral basilar atelectatic pulmonary changes. Reading [facility]
[2025-06-28] MEDS: 0.9% Normal Saline (1000mL) 1,000 ML 999 ML IV (00:52)
[2025-06-28 01:08] LABS: Hematocrit 21.5 % (37-47); Hemoglobin 7.4 g/dL (12.0-15.0); Immature Granulocytes Count 0.000 X10^3/uL (0.0-0.0); Mean Corp Hgb Conc 34.4 g/dL (32-36); Mean Corpuscular Volume 92.3 fL (81-99); Mean Platelet Vol. 10.2 fl (6.2-12.0); NRBC Flagged by Analyzer 0 % (0-5); POSITIVE COUNT YES; POSITIVE DIFFERENTIAL YES; POSITIVE MORPHOLOGY YES; Platelet Count 107 K/mm3 (150-450); RBC Distribution Width CV 16.2 % (11.6-14.6); RBC Distribution Width SD 54.5 fl (35.1-43.9); Red Blood Count 2.33 M/mm3 (4.2-5.4)
[2025-06-28 01:25] LABS: Partial Thromboplast Time 31.4 Seconds (24.1-36.2); Prothrombin Time (Protime)PT. 13.5 SECONDS (11.7-14.9)
[2025-06-28 01:36] LABS: Mucous, Urine 0 SEEN /hpf (<or=2+)
[2025-06-28 01:39] LABS: Color, Urine Straw (Yellow); Glucose, Dipstick Normal (Normal); Ketone-Dipstick Negative (Negative); Leukocyte Esterase-Dipstick Negative /ul (Negative); Nitrite-Dipstick Negative (Negative); Occult Blood-Urine 10 /ul (Negative); Protein-Dipstick Negative (Negative); Specific Gravity, Urine 1.005 (1.002-1.030); Urine Bilirubin Dipstick Negative (Negative)
[2025-06-28 01:39] LABS: SITE Not entered; VBG BASE EXCESS 1 mmol/L (-1.0-3.5); VBG PO2 22 mmHg (25-40); VBG SO2 35 % (50-70); VBG TCO2 28 mmol/L (23-33)
[2025-06-28 01:52] LABS: AST(SGOT) 29 U/L (<=31); Alanine Aminotransfer ALT/SGPT 30 U/L (<=34); Albumin, Serum 3.7 g/dL (3.5-5.0); Alkaline Phosphatase 76 U/L (35-104); Anion Gap 12 (5-15); BUN 9 mg/dL (4-19); BUN/Creat Ratio 12.3 RATIO (10-20); Calcium,Total 8.6 mg/dL (7.6-11.0); Carbon Dioxide 22.5 mmol/L (21.0-32.0); Chloride 101 mmol/L (98-108); Estimated Creatinine Clearance 98.78 ml/min (50-250); Globulin 2.7 g/dL (2.2-4.2); Glucose 111 mg/dL (70-99); Potassium 3.6 mmol/L (3.3-5.1)
[2025-06-28 02:05] LABS: Red Blood Cells-Urine 0-5 SEEN /hpf (0-5); Squamous Epithelial Cells - UA 0-5 SEEN /hpf (5-10)
[2025-06-28 02:43] LABS: Differential Indicated SCAN CRITERIA MET; White Blood Count 1.4 K/mm3 (4.4-11.0)
[2025-06-28 02:53] LABS: Differential Comment SCANNED
[2025-06-28] MEDS: Cefepime HCl 2 GM in 0.9% Normal Saline (100mL MB+) 100 ML IV ×3 (03:36→21:07)
--- NOTE | 2025-06-28 04:09 | PCM.HP.STD ---
HPI - General General Date of Admission: 06/28/25 Date of Service: 06/28/25 Chief Complaint: Fever and sore throat HPI Narrative HOWARD HURD, is a 44 F who presents for fever and sore throat after she finished her last cycle of chemotherapy. 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 She came with a new onset of fever and sore and dry throat. Patient also noticed patchy erythema affecting both hands over the MCP and interphalangeal joints with stiffness in both hands because of swelling of her fingers. No blisters or ecchymosis. She denies any cough, sputum production, abdominal pain, diarrhea, dysuria, headache or blurred vision. She has a right-sided chest port. Her WBC is 1.4 with 2.2% neutrophils. Lactic acid 1.0. Hemoglobin 7.4 and platelets 107 Patient needs an admission for neutropenic fever and broad-spectrum antibiotics [facility] Medical History (Updated 06/28/25 @ 05:[address] Russell Loredo MD) Neutropenia with fever Diarrhea due to drug UTI (urinary tract infection) Dysuria Encounter for antineoplastic chemotherapy and immunotherapy Encounter for education Post-menopausal Wears glasses Cancer Depression Anemia Smoker History of edema Regional lymph node metastasis present Anxiety Breast cancer Home Medications Medication Instructions Recorded Last Taken Type citalopram 40 mg tablet 40 mg PO QDAY 12/09/24 01/07/25 History Allergy/AdvReac Type Severity Reaction Status Date / Time No Known Allergies Allergy Verified 06/28/25 00:10 Family History Aunt Breast cancer Aunt Breast cancer Aunt Breast cancer Father Brain tumor Uncle Cancer Mother Heart disease Surgical History History of wisdom tooth extraction Social History Smoking Status: Light Smoker (<10/day) Tobacco: How many years used: 20 alcohol intake: never ROS Constitutional Constitutional: Reports fever(s) and poor appetite Eyes Eyes: Denies change in vision ENT HEENT: Reports none; Denies epistaxis or headache(s) Cardiovascular Cardiovascular: Denies chest pain or dyspnea Respiratory/Chest Respiratory/Chest: Denies cough or wheezing Gastrointestinal Gastrointestinal: Denies abdominal pain or change in bowel habits Genitourinary Genitourinary: Denies change in urinary stream or dysuria Musculoskeletal Musculoskeletal: Denies arthralgias or myalgias Integumentary Integumentary: Reports rash Neurologic Neurologic: Denies abnormal speech, dizziness, focal weakness, loss of vision or numbness Hematologic/Lymphatic Hematologic/Lymphatic: Reports none Vital Signs Vital Signs Vital Signs: 06/28/25 00:10 06/28/25 00:26 06/28/25 00:34 Temperature 101 F H Temperature Source Oral Pulse Rate 99 Respiratory Rate 22 H Respiratory Pattern Normal Blood Pressure 148/93 H Blood Pressure Mean 111 Pulse Ox 100 Oxygen Delivery Method Room Air Room Air 06/28/25 01:12 06/28/25 02:00 06/28/25 03:00 Temperature 99.9 F H 99.7 F H 98.8 F Temperature Source Oral Oral Oral Pulse Rate 92 90 93 Respiratory Rate 16 16 16 Respiratory Pattern Blood Pressure 131/93 H 130/90 H 142/92 H Blood Pressure Mean 105 103 108 Pulse Ox 98 100 98 Oxygen Delivery Method Room Air Room Air 06/28/25 03:00 06/28/25 03:41 Temperature 98.9 F Temperature Source Pulse Rate 93 85 Respiratory Rate 16 16 Respiratory Pattern Blood Pressure 142/92 H 131/98 H Blood Pressure Mean 108 109 Pulse Ox 98 99 Oxygen Delivery Method Weight Weight: 69.2 kg Body Mass Index (BMI) 25.4 Physical Exam Const alert and oriented x3 Orientation / Consciousness: lethargic HEENT normocephalic and head/scalp atraumatic Eyes EOMs intact bilaterally; Negative for no scleral icterus Neck supple Resp normal respiratory effort and clear to auscultation bilaterally Resp Narrative: Right chest port without tenderness or erythema around Cardio regular rate and regular rhythm; Negative for no murmurs GI normal to inspection, nondistended, normoactive bowel sounds; Negative for non-tender no CVA tenderness Extremity no joint enlargement and no pedal edema Skin Skin Narrative: Patchy erythema over both hands with swelling and mild stiffness of fingers Neuro oriented x3 and moves all extremities Results Lab / Micro Data 06/28/25 00:45 06/28/25 00:45 Labs: Laboratory Results - last 24 hr 06/28/25 00:45: WBC 1.4 L*, RBC 2.33 L, Hgb 7.4 L, Hct 21.5 L, MCV 92.3, MCH 31.8, MCHC 34.4, RDW Std Deviation 54.5 H, RDW Coeff of Matteo 16.2 H, Plt Count 107 L, MPV 10.2, Immature Gran % (Auto) 0.000, Neut % (Auto) 2.2 L, Lymph % (Auto) 87.6 H, Fajardo % (Auto) 10.2 H, Eos % (Auto) 0.0, Baso % (Auto) 0.0, Absolute Neuts (auto) 0.0 L, Absolute Lymphs (auto) 1.20, Nucleated RBC % 0, Differential Comment SCANNED, Diff Path Review May foll, Atypical Lymphocytes RARE, PT 13.5, INR 1.0, APTT 31.4, Sodium 135, Potassium 3.6, Chloride 101, Carbon Dioxide 22.5, Anion Gap 12, BUN 9, Creatinine 0.71, Estim Creat Clear Calc 98.78, Est GFR (MDRD) Non-Af 107, BUN/Creatinine Ratio 12.3, Glucose 111 H, Lactic Acid 1.0, Calcium 8.6, Total Bilirubin 0.20, AST 29, ALT 30, Alkaline Phosphatase 76, Total Protein 6.4, Albumin 3.7, Globulin 2.7, Albumin/Globulin Ratio 1.4 06/28/25 01:20: Urine Color Straw, Urine Clarity Clear, Urine pH 7.0, Ur Specific [place] 1.005, Urine Protein Negative, Urine Glucose (UA) Normal, Urine Ketones Negative, Urine Occult Blood 10 H, Urine Nitrite Negative, Urine Bilirubin Negative, Urine Urobilinogen Normal, Ur Leukocyte Esterase Negative, Urine RBC 0-5 SEEN, Urine WBC 0-5 SEEN, Ur Squamous Epith Cells 0-5 SEEN, Urine Bacteria 1+, Urine Mucus 0 SEEN Micro: Microbiology 06/28/25 00:45 Mucosa - Nasopharyngeal SARS-CoV-2, Influenza & RSV (PCR) - Final ABG Data ABG results: ABG 06/28/25 01:35 Specimen Type JESUSITA Sample Site Not entered VBG pH 7.37 VBG pO2 22 L VBG HCO3 27 H VBG Total CO2 28 VBG O2 Sat (Calc) 35 L VBG Base Excess 1 POC Mix VBG pCO2 Pt Tmp 46.6 O2 Delivery Device Room Air Imaging Radiology Impression Chest X-Ray 06/28/25 00:50 IMPRESSION: Interval appearance of bilateral basilar atelectatic pulmonary changes. Reading Location: [place] [id number] Assessment & Plan Assessment/Plan (1) Neutropenia with fever: (2) Pancytopenia due to antineoplastic chemotherapy: (3) Hand erythema: (4) Breast cancer: QUALIFIERS: Breast location: overlapping sites of breast Estrogen receptor status: positive Patient sex: female Laterality: left Qualified Code(s): C50.812 - Malignant neoplasm of overlapping sites of left female breast; Z17.0 - Estrogen receptor positive status [ER+] PLAN: Plan 44-year-old female with left-sided breast cancer just completed her neoadjuvant chemo is coming with neutropenic fever needs an admission for broader antibiotics including vancomycin because of the presence of port Febrile neutropenia: Absolute neutrophil count below 500. Fever 101. Unclear source on exam but she has a port which can be the culprit even without redness or erythema as she has no neutrophils to cause inflammation Blood cultures and urine cultures are sent IV cefepime and vancomycin (indicated because of the port) Oncology consultation Pancytopenia: Currently no indication for transfusions Hand erythema: Can be related to serious bacterial infections or fungal infections. Also it can be Sweet syndrome in neutropenic fever. No signs suggestive of tissue damage like necrosis or blisters Left breast cancer hormone positive Completed neoadjuvant chemo. Charges/Coding Visit Charges Inpatient E&M: 03776 Init Hosp L3
--- NOTE | 2025-06-28 04:53 | EX.ED.DYSGE1 ---
HPI History of Present Illness Chief Complaint: Fever Narrative Narrative: Patient was seen and examined after presenting to ED for fever patient is undergoing treatment for breast cancer she just had her last chemotherapy she follows with Dr Borja for her oncology treatment. PFSH FOR[facility]LY [facility], [facility] Medical History Diarrhea due to drug UTI (urinary tract infection) Dysuria Encounter for antineoplastic chemotherapy and immunotherapy Encounter for education Post-menopausal Wears glasses Cancer Depression Anemia Smoker History of edema Regional lymph node metastasis present Anxiety Breast cancer Home Medications Medication Instructions Recorded Last Taken Type citalopram 40 mg tablet 40 mg PO QDAY 12/09/24 01/07/25 History Allergy/AdvReac Type Severity Reaction Status Date / Time No Known Allergies Allergy Verified 06/28/25 00:10 Family History Aunt Breast cancer Aunt Breast cancer Aunt Breast cancer Father Brain tumor Uncle Cancer Mother Heart disease Surgical History History of wisdom tooth extraction Social History Smoking Status: Light Smoker (<10/day) Tobacco: How many years used: 20 alcohol intake: never ROS ROS ED ROS Narrative Pertinent Positives: Fever undergoing current breast cancer treatment Pertinent Negatives: Vomiting diarrhea body aches chest pain pressure shortness of breath The remainder of review of systems negative unless otherwise stated in the HPI above. Systems reviewed including constitutional, psychiatric, cardiovascular, respiratory, integument, HENT, gastrointestinal. EXAM Physical Exam Narrative Exam Narrative: Patient is febrile normocephalic/atraumatic normal range of motion of her head and neck oropharynx clear she does have that stomatitis from the chemotherapy. Normal heart and lung sounds. Abdomen is soft nontender nondistended she has intact and equal MSPs in her extremities she has this redness overlying her fingers but this is on bilateral hands no crepitus no vesicular lesions. Her chest port site does not appear to be infected Const Vital Signs: 06/28/25 00:10 06/28/25 00:26 06/28/25 00:34 Temperature 101 F H Temperature Source Oral Pulse Rate 99 Respiratory Rate 22 H Respiratory Pattern Normal Blood Pressure 148/93 H Blood Pressure Mean 111 Pulse Ox 100 Oxygen Delivery Method Room Air Room Air 06/28/25 01:12 06/28/25 02:00 06/28/25 03:00 Temperature 99.9 F H 99.7 F H 98.8 F Temperature Source Oral Oral Oral Pulse Rate 92 90 93 Respiratory Rate 16 16 16 Respiratory Pattern Blood Pressure 131/93 H 130/90 H 142/92 H Blood Pressure Mean 105 103 108 Pulse Ox 98 100 98 Oxygen Delivery Method Room Air Room Air 06/28/25 03:00 06/28/25 03:41 Temperature 98.9 F Temperature Source Pulse Rate 93 85 Respiratory Rate 16 16 Respiratory Pattern Blood Pressure 142/92 H 131/98 H Blood Pressure Mean 108 109 Pulse Ox 98 99 Oxygen Delivery Method MDM MDM MDM Narrative Medical decision making narrative: Nursing notes, triage notes, available previous documentation, and vital signs were reviewed. Any discrepancies noted were addressed. Differential Diagnoses: Need to be concern for neutropenic fever pneumonia viral process UTI Interventions: Acetaminophen Antibiotics Given: Cefepime Fluids Given: 1 L normal saline Labs Reviewed: She is leukopenic with a white blood cell count of 1.4 she is anemic at 7.4 platelets are 107 her absolute neutrophil count is 0 no coagulopathy no electrolyte abnormality or renal insufficiency or transaminitis lactic acid is 1.0 urine is without evidence of infection. Negative for flu COVID RSV Imaging Reviewed: Personally reviewed and interpreted by me: Chest x-ray no pneumonia edema alex mediastinum or pneumothoraces you can see her chest port EKG: Normal sinus rhythm rate of [address] segment elevation MD interval and QTc are otherwise appropriate. EKG interpretation is noted and agreed to in the EMR. The interpretation of this patient's EKG contributed directly to the care and management of this patient. Previous Documentation Reviewed: None available or applicable at this time. ED Course: Patient presenting with fever she is undergoing chemotherapy found to have neutropenia her absolute neutrophil count is 0 I did discuss with her oncologist who happens to be the one on-call who is definitely recommending admission to medicine. I stated I was going to provide vancomycin and cefepime he stated just provide cefepime for now believes that her hands are likely a result of her chemotherapy patient did not going get her infusion postchemotherapy for her white blood cell counts he states that this is normal as she does not have the most optimal compliance so I did discuss with the hospitalist who is agreeable to admission. This note was made utilizing voice recognition software. All attempts were made to correct spelling or other errors prior to note completion. However, due to the fast-paced nature of emergency medicine, some errors may still be present. Lab Data Labs: Laboratory Results - last 24 hr 06/28/25 06/28/25 00:45 01:20 WBC 1.4 L* RBC 2.33 L Hgb 7.4 L Hct 21.5 L MCV 92.3 MCH 31.8 MCHC 34.4 RDW Std Deviation 54.5 H RDW Coeff of Matteo 16.2 H Plt Count 107 L MPV 10.2 Immature Gran % (Auto) 0.000 Neut % (Auto) 2.2 L Lymph % (Auto) 87.6 H [place] % (Auto) 10.2 H Eos % (Auto) 0.0 Baso % (Auto) 0.0 Absolute Neuts (auto) 0.0 L Absolute Lymphs (auto) 1.20 Nucleated RBC % 0 Differential Comment SCANNED Diff Path Review May foll Atypical Lymphocytes RARE PT 13.5 INR 1.0 APTT 31.4 Sodium 135 Potassium 3.6 Chloride 101 Carbon Dioxide 22.5 Anion Gap 12 BUN 9 Creatinine 0.71 Estim Creat Clear Calc 98.78 Est GFR (MDRD) Non-Af 107 BUN/Creatinine Ratio 12.3 Glucose 111 H Lactic Acid 1.0 Calcium 8.6 Total Bilirubin 0.20 AST 29 ALT 30 Alkaline Phosphatase 76 Total Protein 6.4 Albumin 3.7 Globulin 2.7 Albumin/Globulin Ratio 1.4 Urine Color Straw Urine Clarity Clear Urine pH 7.0 Ur Specific Todd 1.005 Urine Protein Negative Urine Glucose (UA) Normal Urine Ketones Negative Urine Occult Blood 10 H Urine Nitrite Negative Urine Bilirubin Negative Urine Urobilinogen Normal Ur Leukocyte Esterase Negative Urine RBC 0-5 SEEN Urine WBC 0-5 SEEN Ur Squamous Epith Cells 0-5 SEEN Urine Bacteria 1+ Urine Mucus 0 SEEN ABG Data ABG results: ABG 06/28/25 01:35 Specimen Type JESUSITA Sample Site Not entered VBG pH 7.37 VBG pO2 22 L VBG HCO3 27 H VBG Total CO2 28 VBG O2 Sat (Calc) 35 L VBG Base Excess 1 POC Mix VBG pCO2 Pt Tmp 46.6 O2 Delivery Device Room Air Radiography Diagnostic Testing: Clinical Impression(s) from Imaging Studies Chest X-Ray 06/28/25 00:50 IMPRESSION: Interval appearance of bilateral basilar atelectatic pulmonary changes. Reading Location: [place] [address] Discharge Plan Triage Chief Complaint: Fever ED Provider: Rebecca Breaux Dx/Rx/DC Orders Clinical Impression: Neutropenia with fever, History of breast cancer, Acute febrile illness, Anemia Prescriptions: No Action citalopram 40 mg tablet 40 mg PO QDAY Primary Care Provider: Austin Michael Referrals: Austin Michael DO [Primary Care Provider, Family Practice] Print Language: [place]
--- OUTSIDE RECORDS SUMMARY | 2025-06-28 05:21 | XMS RPT_ITS | CCD ---
Author Organization [facility] CliniSyal Care Team Providers Care Family Life Counselor Name Role Phone David Ghotra DO Primary Care Provider FAITH CHAVEZ Attending Unavailable DAVID GHOTRA Primary Care Unavailable DAVID GHOTRA Primary Care Unavailable FAITH CHAVEZ Referring Unavailable DAVID GHOTRA Primary Care Unavailable Dr. David Ghotra DO Primary Care Provider Dr. David Ghotra DO Attending Provider Dr. David Ghotra DO Referring Provider Dr. Feliciano Castellon MD Attending Provider Dr. Feliciano Castellon MD Referring Provider [phone] Dr. Arnaud Borja MD Attending Provider Dr. [...] Physician Dr. Feliciano Castellon MD Referring Provider [phone] Ravinder MOSELEY, Dr. Wiggins Nurse Practitioner [phone] Huong MOSELEY, Dr. Lares Attending Physician Dr. David Ghotra DO Referring Provider Amalia PATIENT SERVICES SPECIALIST-C, Kelsey Attending Physician Jacobo MOSELEY, Dr. Kerr Attending Physician DAVID GHOTRA Primary Care Unavailable MATTHEW STONE Attending Unava ilable Alec David Primary Care Unavailable Alec David Attending Unavailable Alec, David Primary Care Unavailable Alec, David Referring Unavailable AlecDavid Attending Unavailable Amalia PATIENT SERVICES SPECIALIST, Kelsey Attending Unavailable AlecDavid Referring Unavailable Alec, [...] Care Unavailable AlecDavid spivey Attending Unavailable Amalia PATIENT SERVICES SPECIALIST, Kelsey Attending Unavailable AlecDavid Referring Unavailable Alec, [...] aquino Attending Unavailable AlecDavid Referring Unavailable Amalia PATIENT SERVICES SPECIALIST, Kelsey Attending Unavailable Alec, David Primary Care Unavailable Alec, David Primary Care Unavailable Alec, David Referring Unavailable Amalia PATIENT SERVICES SPECIALIST, Kelsey Attending Unavailable Alec, David Primary Care [...] Care Unavailable Arnaud Borja Attending Unavailable Amalia PATIENT SERVICES SPECIALIST, Kelsey Attending Unavailable David Ghotra Primary Care Unavailable David Ghotra Referring Unavailable Alec, David Primary Care Unavailable [...] Take 27 mg by mouth once daily. Ekxbscyg-Id-Fmd-Fe-FA ( VITAMIN) tab (1 source) End: 03-01-20 22 take 1 tablet by mouth once Fbvdbsiw-Pe-Abe-Fe-FA ( VITAMIN) tab Take 1 tablet by [...] 01-08-2025 Episodic Other aftercare (1 source) Other intermediate designer (current) drug therapy; Translations: [Other longterm (current) drug therapy] Onset: 03-12-2025 Episodic Other [...] Test Name Value Interpretation Reference [facility] RC Normal [facility] Comment on above: Result Comment: [id number] BP RC TRANSFUSED 05/30/25 0902 Performed By: #### B , [facility] ####[facility] [address] [place], [address] CBC W/Diff, Automatedon 10- Absolute Lymph 1.83 X10 3/uL Normal 0.83-4.51 [facility] Comment on above: Performed By: #### L 501.2300 #### [facility] [address] [place], [address] Absolute Neut 2.3 X10 3/uL Normal 2.0-7.7 [facility] Comment on above: Performed By: #### L 501.2300 #### [facility] [address] [place], [address] Basophils/100 WBC (Bld) 0.4 % Normal 0-1 [facility] Comment on above: Performed By: #### L 501.2300 #### [facility] [address] [place], [address] Eosinophils/100 WBC (Bld) 0.0 % Normal 0-5 [facility] Comment on above: Performed By: #### L 501.2300 #### [facility] [address] [place], [address] Erythrocyte distribution width (RBC) [Ratio] 17.6 % High 11.6-14.6 [facility] Comment on above: Performed By: #### L 501.2300 #### [facility] [address] [place], [address] Hematocrit (Bld) [Volume fraction] 22.5 % Low 37-47 [facility] Comment on above: Performed By: #### L 501.2300 #### [facility] [address] [place], [address] Hemoglobin (Bld) [Mass/Vol] 7.4 g/dL Low 12.0-15.0 [facility] Comment on above: Performed By: #### L 501.2300 #### [facility] [address] [place], [address] IG% 0.400 Normal 0.0-0.9 [facility] Comment on above: Result Comment: IG% - Immature Granulocytes (promyelocytes, myelocytes and metamyelocytes) > 1% indicates that a LEFT SHIFT is Present. Performed By: #### L 501.2300 #### [facility] [address] [place], [address] Lymphocytes/100 WBC (Bld) 39.4 % Normal 19-41 [facility] Comment on above: Performed By: #### L 501.2300 #### [facility] [address] [place], [address] MCH (RBC) [Entitic mass] 31.2 pg Normal 27.0-32.0 [facility] Comment on above: Performed By: #### L 501.2300 #### [facility] [address] [place], [address] MCHC (RBC) [Mass/Vol] 32.9 g/dL Normal 32-36 [facility] Comment on above: Performed By: #### L 501.2300 #### [facility] [address] [place], [address] MCV (RBC) [Entitic vol] 94.9 fL Normal 81-99 [facility] Comment on above: Performed By: #### L 501.2300 #### [facility] [address] [place], [address] Monocytes/100 WBC (Bld) 11.2 % High 0-10 [facility] Comment on above: Performed By: #### L 501.2300 #### [facility] [address] [place], [address] Neutrophils/100 WBC (Bld) 48.6 % Normal 47-70 [facility] Comment on above: Performed By: #### L 501.2300 #### [facility] [address] [place], [address] Nucleated RBC (Bld) [#/Vol] 0 10*3/uL Normal 0-5 [facility] Comment on above: Performed By: #### L 501.2300 #### [facility] [address] [place], [address] Platelet mean volume (Bld) [Entitic vol] 9.9 fL Normal 6.2-12.0 [facility] Comment on above: Performed By: #### L 501.2300 #### [facility] [address] [place], [address] Platelets (Bld) [#/Vol] 270 10*3/uL Normal 150-450 [facility] Comment on above: Performed By: #### L 501.2300 #### [facility] [address] [place], [address] RBC (Bld) [#/Vol] 2.37 10*6/uL Low 4.2-5.4 [facility] Comment on above: Performed By: #### L 501.2300 #### [facility] [address] [place], [address] RDW SD 59.4 fl High 35.1-43.9 [facility] Comment on above: Performed By: #### L 501.2300 #### [facility] [address] [place], [address] WBC (Bld) [#/Vol] 4.7 10*3/uL Normal 4.4-11.0 [facility] Comment on above: Performed By: #### L 501.2300 #### [facility] [address] [place], [address] Comprehensive Metabolic Prof ilon 05-28-2025 Albumin [Mass/Vol] 3.8 g/dL Normal 3.5-5.0 [facility] Comment on above: Performed By: #### L 501.2300 #### [facility] [address] [place], [address] Albumin/Globulin [Mass ratio] 1.3 {ratio} Normal 0.9-2.4 [facility] Comment on above: Performed By: #### L 501.2300 #### [facility] [address] [place], [address] ALK PHOS 102 U/L Normal 35-104 [facility] Comment on above: Performed By: #### L 501.2300 #### [facility] [address] [place], [address] ALT [Catalytic activity/Vol] 18 U/L Normal <=34 [facility] Comment on above: Performed By: #### L 501.2300 #### [facility] [address] [place], [address] AST [Catalytic activity/Vol] 22 U/L Normal <=31 [facility] Comment on above: Performed By: #### L 501.2300 #### [facility] [address] [place], [address] BUN/CRE 18.4 RATIO Normal 10-20 [facility] Comment on above: Performed By: #### L 501.2300 #### [facility] [address] [place], [address] Calcium [Mass/Vol] 9.3 mg/dL Normal 7.6-11.0 [facility] Comment on above: Performed By: #### L 501.2300 #### [facility] [address] [place], [address] Chloride [Moles/Vol] 108 mmol/L Normal 98-108 [facility] Comment on above: Performed By: #### L 501.2300 #### [facility] [address] [place], [address] CO2 [Moles/Vol] 23.0 mmol/L Normal 21.0-32.0 [facility] Comment on above: Performed By: #### L 501.2300 #### [facility] [address] [place], [address] Creatinine [Mass/Vol] 0.75 mg/dL Normal 0.70-1.20 [facility] Comment on above: Performed By: #### L 501.2300 #### [facility] [address] [place], [address] ECRCL 86.13 ml/min Normal 50-250 [facility] Comment on above: Performed By: #### L 501.2300 #### [facility] [address] [place], [address] GAP 12 Normal 5-15 [facility] Comment on above: Performed By: #### L 501.2300 #### [facility] [address] [place], [address] GFR/1.73 sq M.predicted among non-blacks MDRD (S/P/Bld) [Vol rate/Area] 100 mL/min/{1.73_m2} Normal >60 [facility] Comment on above: Result Comment: mL/m in/1.73m2 CKD-EPI Creatinine Equation (2020) Performed By: #### L 501.2300 #### [facility] [address] [place], [address] Globulin (S) [Mass/Vol] 3.0 g/dL Normal 2.2-4.2 [facility] Comment on above: Performed By: #### L 501.2300 #### [facility] [address] [place], [address] Glucose [Mass/Vol] 129 mg/dL High 70-99 [facility] Comment on above: Performed By: #### L 501.2300 #### [facility] [address] [place], [address] Potassium [Moles/Vol] 3.5 mmol/L Normal 3.3-5.1 [facility] Comment on above: Performed By: #### L 501.2300 #### [facility] [address] [place], [address] Sodium [Moles/Vol] 143 mmol/L Normal 133-145 [facility] Comment on above: Performed By: #### L 501.2300 #### [facility] [address] [place], [address] T BILI < 0.15 Normal 0.00-1.30 [facility] Comment on above: Performed By: #### L 501.2300 #### [facility] [address] [place], [address] T PROT 6.8 g/dL Normal 5.9-8.4 [facility] Comment on above: Performed By: #### L 501.2300 #### [facility] [address] [place], [address] Urea nitrogen [Mass/Vol] 14 mg/dL Normal 4-19 [facility] Comment on above: Performed By: #### L 501.2300 #### [facility] [address] [place], [address] Ferritinon 05-28-2025 Ferritin [Mass/Vol] 239 ng/mL Normal 22-378 [facility] Comment on above: Performed By: #### L 503.6030, L503.6550 ####[facility] [address] [place], [address] Iron+Iron Binding Capacityon 05-28-2025 Iron [Mass/Vol] 48 ug/dL Low 50-170 [facility] Comment on above: Performed By: #### L 503.6030, L503.6550 ####[facility] [address] [place], [address] IRON SATURATION 17.5 Normal 13-59 [facility] Comment on above: Performed By: #### L 503.6030, L503.6550 ####[facility] [address] [place], [address] TIBC 274 ug/dL Normal 250-450 [facility] Comment on above: Performed By: #### L 503.6030, L503.6550 ####[facility] [address] [place], [address] UIBC 226 ug/dL Low 228-428 [facility] Comment on above: Performed By: #### L 503.6030, L503.6550 ####[facility] [address] [place], [address] Magnesiumon 05-28-2025 Magnesium [Mass/Vol] 1.8 mg/dL Normal 1.5-2.2 [facility] Comment on above: Performed By: #### L 501.2300 #### [facility] [address] [place], [address] Oncology Visit Reporton 05-01 Oncology Visit Report [facility] [address] [place] [address] OFFICE VISIT Date of Service: 05/28/25819 MR#: [id number] Acct: [id number] Name: HOWARD HALL Rep #: [id number] : 1980 From: Kelsey Amalia LOPEZ PATIENT SERVICES SPECIALIST PatyC Age/Sex: 44/F Location: [facility] Status: Signed HPI Subjective Date of [...] in 100% of tumor cells PROGESTERONE RECEPTOR (NC): Positive, strong immunoreactivity in 100% of tumor [...] = -16.7% (normal). Treatment summary and response: [facility] February 13, 2025 (C4 delayed by 2 weeks d/t patient no shows) Interval History The patient is presenting to clinic for an evaluat (more content not included)... Normal [facility] Type AND Screenon 05-28-2025 Ab SCREEN GEL Negative Normal [facility] Comment on above: Order Comment: N1 [id number] Performed By: #### B ARIES, [facility] ####[facility] [address] [place], [place], [address] ABO and Rh group Nom (Bld) Blood group B Rh(D) positive [facility] Comment on above: Order Comment: [id number] Performed By: #### B ARIES, [facility] ####[facility] [address] [place], [place], [address] ALLIED HEALTHon 05-15-2025 ALLIED HEALTH HNO ID: [id number] Author: JEIMY SPENCE RT(R) Service: Radiology Author Type: Entertainment Lawyer Type: Allied Health Filed: 05/15/2025 10:57 Note [...] PATIENT PRESENTS WITH AN IMPLANTABLE OR ATTACHED DRAFTER TOPOGRAPHICAL: No RADIOLOGY DEPARTMENT: General X-ray: Exam(s) Completed: Chest X-Ray PERIPHERAL IV DATA: Not applicable SIGNED BY: RT Debo(R) May 15, 2025 10:56 AM [facility] Bacteria Bld Culton 05-15-20 Bacteria identified Cx Nom (Bld) CULTURE, BLOOD: No growth 5 days Normal [facility] Comment on above: Performed By: #### 6 00-7 #### [facility] CLIA [id number] [address] STATES OF [facility] CBC W Auto Differential pane l (Bld)on 05-15-2025 Anisocytosis Ql (Bld) Present Normal [facility] Comment on above: Order Comment: Speci men Type: BLOOD SPECIMENOrdering Facility: [facility] Address: [address] [place] [address] Performed By: #### 5 7021-8 ####[facility] LABCLIA [id number] [place] [id number] [facility] Basophils (Bld) [#/Vol] 0.00 10*3/uL Normal <0.11 [facility] Comment on above: Order Comment: Speci men Type: BLOOD SPECIMENOrdering Facility: [facility] Address: [address] [place] [address] Performed By: #### 5 7021-8 ####[facility] LABCL[facility] [id number] [place] [id number] [facility] Basophils/100 WBC (Bld) 0.0 % Normal [facility] Comment on above: Order Comment: Speci men Type: BLOOD SPECIMENOrdering Facility: [facility] Address: [address] [place] [address] Performed By: #### 5 7021-8 ####[facility] LABCLIA [id number] [place] [id number] [facility] Differential cell count method Nom (Bld) Manual Normal [facility] Comment on above: Order Comment: Speci men Type: BLOOD SPECIMENOrdering Facility: [facility] Address: [address] [place] [address] Performed By: #### 5 7021-8 ####[facility] LABCLIA [id number] [place] [id number] [place] Eosinophils (Bld) [#/Vol] 0.00 10*3/uL Normal <0.46 [facility] Comment on above: Order Comment: Speci men Type: BLOOD SPECIMENOrdering Facility: [facility] Address: [address] [place] [address] Performed By: #### 5 7021-8 ####[facility] LABCLIA [id number] [place] [address] [place] Eosinophils/100 WBC (Bld) 0.0 % Normal [facility] Comment on above: Order Comment: Speci men Type: BLOOD SPECIMENOrdering Facility: [facility] Address: [address] [place] [address] Performed By: #### 5 7021-8 ####[facility] LABCLIA [id number] [facility] [place] [address] [facility] [place] Erythrocyte distribution width (RBC) [Ratio] 16.2 % High 11.5-15.0 [facility] Comment on above: Order Comment: Speci men Type: BLOOD SPECIMENOrdering Facility: [facility] Address: [address] [place] [address] Performed By: #### 5 7021-8 ####[facility] LABCLIA [id number] [place] [address] [facility] Hematocrit (Bld) [Volume fraction] 26.3 % Low 36.0-46.0 [facility] Comment on above: Order Comment: Speci men Type: BLOOD SPECIMENOrdering Facility: [facility] Address: [address] [place] [address] Performed By: #### 5 7021-8 ####[facility] LABCLIA [id number] [place] [address] [place] Hemoglobin (Bld) [Mass/Vol] 8.5 g/dL Low 11.5-15.5 [facility] Comment on above: Order Comment: Speci men Type: BLOOD SPECIMENOrdering Facility: [facility] Address: [address] [place] [address] Performed By: #### 5 7021-8 ####[facility] LABCLIA [id number] [place] [address] [facility] [place] Lymphocytes (Bld) [#/Vol] 1.58 10*3/uL Normal 1.00-4.00 [facility] Comment on above: Order Comment: Speci men Type: BLOOD SPECIMENOrdering Facility: [facility] Address: [address] [place] [address] Performed By: #### 5 7021-8 ####[facility] LABCLIA [id number] [place] [address] [facility] Lymphocytes/100 WBC (Bld) 27.0 % Normal [facility] Comment on above: Order Comment: Speci men Type: BLOOD SPECIMENOrdering Facility: [facility] Address: [address] [place] [address] Performed By: #### 5 7021-8 ####[facility] LABCLIA [id number] [place] [address] [place] MCH (RBC) [Entitic mass] 30.6 pg Normal 26.0-34.0 [facility] Comment on above: Order Comment: Speci men Type: BLOOD SPECIMENOrdering Facility: [facility] Address: [address] [place] [address] Performed By: #### 5 7021-8 ####[facility] LABCLIA [id number] [place] [id number] [place] MCHC (RBC) [Mass/Vol] 32.3 g/dL Normal 30.5-36.0 [facility] Comment on above: Order Comment: Speci men Type: BLOOD SPECIMENOrdering Facility: [facility] Address: [address] [place] [address] Performed By: #### 5 7021-8 ####[facility] LABCLIA [id number] [place] [address] [place] MCV (RBC) [Entitic vol] 94.6 fL Normal 80.0-100.0 [facility] Comment on above: Order Comment: Speci men Type: BLOOD SPECIMENOrdering Facility: [facility] Address: [address] [place] [address] Performed By: #### 5 7021-8 ####[facility] LABCLIA [id number] [facility] [address] [place] Monocytes (Bld) [#/Vol] 1.29 10*3/uL High <0.87 [facility] Comment on above: Order Comment: Speci men Type: BLOOD SPECIMENOrdering Facility: [facility] Address: [address] [place] [address] Performed By: #### 5 7021-8 ####[facility] LABCLIA [id number] [facility] [place] [address] [place] Monocytes/100 WBC (Bld) 22.0 % Normal [facility] Comment on above: Order Comment: Speci men Type: BLOOD SPECIMENOrdering Facility: [facility] Address: [address] [place] [address] Performed By: #### 5 7021-8 ####[facility] LABCLIA [id number] [facility] [place] [address] [place] Neutrophils (Bld) [#/Vol] 2.99 10*3/uL Normal 1.45-7.50 [facility] Comment on above: Order Comment: Speci men Type: BLOOD SPECIMENOrdering Facility: [facility] Address: [address] [place] [address] Performed By: #### 5 7021-8 ####[facility] LABCLIA [id number] [facility] [place] [address] [place] Neutrophils/100 WBC (Bld) 51.0 % Normal [facility] Comment on above: Order Comment: Speci men Type: BLOOD SPECIMENOrdering Facility: [facility] Address: [address] [place] [address] Performed By: #### 5 7021-8 ####[facility] LABCLIA [id number] [place] [address] [place] Nucleated RBC (Bld) [#/Vol] 10*3/uL Normal <0.01 [facility] Comment on above: Order Comment: Speci men Type: BLOOD SPECIMENOrdering Facility: [facility] Address: [address] [place] [address] Performed By: #### 5 7021-8 ####[facility] LABCLIA [id number] [place] [address] [facility] Nucleated RBC/100 WBC (Bld) [Ratio] 0.0 /100 WBC Normal [facility] Comment on above: Order Comment: Speci men Type: BLOOD SPECIMENOrdering Facility: [facility] Address: [address] [place] [address] Performed By: #### 5 7021-8 ####[facility] [place] LABCLIA [id number] [place] [address] [facility] Platelet mean volume (Bld) [Entitic vol] 10.1 fL Normal 9.0-12.7 [facility] Comment on above: Order Comment: Speci men Type: BLOOD SPECIMENOrdering Facility: [facility] Address: [address] [place] [address] Performed By: #### 5 7021-8 ####[facility] LABCLIA [id number] [facility] [address] [facility] Platelets (Bld) [#/Vol] 130 10*3/uL Low 150-400 [facility] Comment on above: Order Comment: Speci men Type: BLOOD SPECIMENOrdering Facility: [facility] Address: [address] [place] [address] Result Comment: No c lot detected. Performed By: #### 5 7021-8 ####[facility] [place] LABCLIA [id number] [place] [address] [facility] Platelets Estimate (Bld) [#/Vol] Decreased Normal [facility] Comment on above: Order Comment: Speci men Type: BLOOD SPECIMENOrdering Facility: [facility] Address: [address] [place] [address] Performed By: #### 5 7021-8 ####[facility] [id number] [place] [address] [facility] RBC (Bld) [#/Vol] 2.78 10*6/uL Low 3.90-5.20 [facility] Comment on above: Order Comment: Speci men Type: BLOOD SPECIMENOrdering Facility: [facility] Address: [address] [place] [address] Performed By: #### 5 7021-8 ####[facility] [id number] [place] [address] [facility] RED CELL MORPH Reviewed: see result s of individual morphologies Normal [facility] Comment on above: Order Comment: Speci men Type: BLOOD SPECIMENOrdering Facility: [facility] Address: [address] [place] [address] Performed By: #### 5 7021-8 ####[facility] [id number] [place], [place] [address] [place] [address] Toxic granules LM Ql (Bld) Present Normal [facility] Comment on above: Order Comment: Speci men Type: BLOOD SPECIMENOrdering Facility: [facility] Address: [address] [place] [address] Performed By: #### 5 7021-8 ####[facility] [id number] [address] WBC (Bld) [#/Vol] 5.87 10*3/uL Normal 3.70-11.00 [facility] Comment on above: Order Comment: Speci men Type: BLOOD SPECIMENOrdering Facility: [facility] Address: [address] [place] [address] Performed By: #### 5 7021-8 ####[facility] [id number] [place] [id number] [facility] WBC Left Shift Ql (Bld) Present Normal [facility] Comment on above: Order Comment: Speci men Type: BLOOD SPECIMENOrdering Facility: [facility] Address: [address] [place] [address] Performed By: #### 5 7021-8 ####[facility] [id number] [place] [address] [facility] Comprehensive metabolic 2000 panelon 05-15-2025 Albumin [Mass/Vol] 4.1 g/dL Normal 3.9-4.9 [facility] Comment on above: Order Comment: Speci men Type: BLOOD SPECIMEN [facility] Address: [address] [place] [address] Performed By: #### 2 4323-8, 3040-3 #### [facility] CLIA [id number] [address] [place] [address] [place] ALP [Catalytic activity/Vol] 123 U/L Normal 34-123 [facility] Comment on above: Order Comment: Speci men Type: BLOOD SPECIMEN [facility] Address: [address] [place] [address] Performed By: #### 2 4323-8, 3040-3 #### [facility] CLIA [id number] [address] [place] [address] [place] [facility] ALT With P-5'-P [Catalytic activity/Vol] 18 U/L Normal 7-38 [facility] Comment on above: Order Comment: Speci men Type: BLOOD SPECIMEN [facility] Address: [address] [place] [address] Performed By: #### 2 4323-8, 3040-3 #### [facility] CLIA [id number] [address] [place] [address] [place] [facility] Anion gap [Moles/Vol] 13 mmol/L Normal 8-15 [facility] Comment on above: Order Comment: Speci men Type: BLOOD SPECIMEN [facility] Address: [address] [place] [address] Performed By: #### 2 4323-8, 3040-3 #### [facility] CLIA [id number] [address] [place] [address] [place] AST With P-5'-P [Catalytic activity/Vol] 18 U/L Normal 13-35 [facility] Comment on above: Order Comment: Speci men Type: BLOOD SPECIMEN [facility] Address: [address] [place] [address] Performed By: #### 2 4323-8, 3040-3 #### [facility] CLIA [id number] [address] [place] [address] [place] Bilirubin [Mass/Vol] 0.2 mg/dL Normal 0.2-1.3 [facility] Comment on above: Order Comment: Speci men Type: BLOOD SPECIMEN [facility] Address: [address] [place] [address] Performed By: #### 2 4323-8, 3039-3 #### [facility] CLIA [id number] [address] [place] [address] [place] Calcium [Mass/Vol] 9.6 mg/dL Normal 8.5-10.2 [facility] Comment on above: Order Comment: Speci men Type: BLOOD SPECIMEN [facility] Address: [address] [place] [address] Performed By: #### 2 4323-8, 0-3 #### [facility] CLIA [id number] [address] [place] [address] [place] Chloride [Moles/Vol] 101 mmol/L Normal 98-107 [facility] Comment on above: Order Comment: Speci men Type: BLOOD SPECIMEN [facility] Address: [address] [place] [address] Performed By: #### 2 4323-8, 3040-3 #### [facility] CLIA [id number] [address] [place] [address] [place] CO2 [Moles/Vol] 22 mmol/L Normal 22-30 [facility] Comment on above: Order Comment: Speci men Type: BLOOD SPECIMEN [facility] Address: [address] [place] [address] Performed By: #### 2 4323-8, 3040-3 #### [facility] CLIA [id number] [address] [place] [address] [place] Creatinine [Mass/Vol] 0.70 mg/dL Normal 0.58-0.96 [facility] Comment on above: Order Comment: Aubree bowens Type: BLOOD SPECIMEN [facility] Address: [address] [place] [address] Performed By: #### 2 4323-8, 3039-3 #### [facility] CLIA [id number] [address] [place] [address] [place] eGFRcr SerPlBld CKD-EPI 2020 110 mL/min/1.73m??? Normal >=60 [facility] Comment on above: Order Comment: Aubree bowens Type: BLOOD SPECIMEN [facility] Address: [address] [place] [address] Result Comment: Isamar mated Glomerular Filtration Rate [...] Performed By: #### 2 4323-8, 3040-3 #### [facility] CLIA [id number] [address] [place] [address] [place] Glucose [Mass/Vol] 102 mg/dL High 74-99 [facility] Comment on above: Order Comment: Aubree bowens Type: BLOOD SPECIMEN [facility] Address: [address] [place] [address] Result Comment: The [place] [employer] (ADA) provides guidance for cutoff [...] Standards of Medical Care in Diabetes 2016, [place] [employer]. Diabetes Care. 2016.39(Suppl 1). Performed By: #### 2 4323-8, 3040-3 #### [facility] CLIA [id number] [address] [place] [address] [place] Potassium [Moles/Vol] 3.7 mmol/L Normal 3.7-5.1 [facility] Comment on above: Order Comment: Speci men Type: BLOOD SPECIMEN [facility] Address: [address] [place] [address] Performed By: #### 2 4323-8, 0-3 #### [facility] CLIA [id number] [address] [place] [address] [place] Protein [Mass/Vol] 7.3 g/dL Normal 6.3-8.0 [facility] Comment on above: Order Comment: Speci men Type: BLOOD SPECIMEN [facility] Address: [address] [place] [address] Performed By: #### 2 4323-8, 0-3 #### [facility] CLIA [id number] [address] [place] [address] [place] Sodium [Moles/Vol] 136 mmol/L Normal 136-144 [facility] Comment on above: Order Comment: Speci men Type: BLOOD SPECIMEN [facility] Address: [address] [place] [address] Performed By: #### 2 4323-8, 3040-3 #### [facility] CLIA [id number] [address] [place] [address] [place] Urea nitrogen [Mass/Vol] 10 mg/dL Normal 7-21 [facility] Comment on above: Order Comment: Speci men Type: BLOOD SPECIMEN [facility] Address: [facility] [place] [address] Performed By: #### 2 4323-8, 3040-3 #### [facility] CLIA [id number] [address] [place] [address] [facility] ED NOTEon 05-15-2025 ED NOTE HNO ID: [id number] Author: FLORENCE RODRIGUEZ MD Service: Emergency Medicine [...] May 16, 2025 TIME: 9:27 AM Normal [facility] ED NOTE HNO ID: [id number] Author: REGINA CAMEJO RN Service: Emergency Medicine Author Type: Registered Nurse Type: ED Notes Filed: 05/15/2025 11:25 Note Text: 2nd set of blood cultures drawn from right chest port Normal [facility] ED PROV NOTEon 05-15-2025 ED PROV NOTE HNO ID: [id number] Author: MATTHEW STONE MD Service: Emergency Medicine [...] normal. Lact (more content not included)... Normal [facility] Lipase SerPl-cCncon 05-15-20 25 Lipase [Catalytic activity/Vol] 38 U/L Normal 16-61 [facility] Comment on above: Order Comment: Aubree bowens Type: BLOOD SPECIMENOrdering Facility: [facility] Address: [address] [place] [address] Performed By: #### 2 4323-8, 3040-3 ####[facility] [id number] [place] [address] [place] S pyo DNA Throat Ql AMINAH+prob castillo 05-15-2025 S. pyogenes DNA AMINAH+probe Ql (Throat) Not detected Normal Not detected [facility] Comment on above: Order Comment: Aubree bowens Type: SWAB [facility] Address: [address] [place] [address] Performed By: #### 6 0489-2 #### [facility] CLIA [id number] [address] [place] [address] [facility] SEPSIS LACTATEon 05-15-2025 Lactate [Moles/Vol] 1.2 mmol/L Normal <=2.0 [facility] Comment on above: Order Comment: Speci men Type: BLOOD SPECIMENOrdering Facility: [facility] Address: [address] [place] [address] Performed By: #### S LACT ####[facility] [id number] [place] [address] [facility] Urinalysis complete panel (U )on 05-15-2025 Bilirubin Ql (U) Negative Normal Negative [facility] Comment on above: Order Comment: Speci men Type: URINE SPECIMEN [facility] Address: [address] [place] [address] Performed By: #### 2 4356-8 #### [facility] CLIA [id number] [address] [place] [address] [facility] [place] Clarity (Unsp spec) Clear Normal Clear [facility] Comment on above: Order Comment: Speci men Type: URINE SPECIMEN [facility] Address: [address] [place] [address] Performed By: #### 2 4356-8 #### [facility] CLIA [id number] [address] [place] [address] [facility] [place] Color (U) Yellow Normal Yellow [facility] Comment on above: Order Comment: Speci men Type: URINE SPECIMEN [facility] Address: [address] [place] [address] Performed By: #### 2 4356-8 #### [facility] CLIA [id number] [address] [place] [address] [facility] [place] Epithelial cells LM.HPF (Urine sed) [#/Area] Moderate Normal [facility] Comment on above: Order Comment: Speci men Type: URINE SPECIMEN [facility] Address: [address] [place] [address] Performed By: #### 2 4356-8 #### [facility] CLIA [id number] [address] [place] [address] [place] [facility] [place] Glucose Test strip (U) [Mass/Vol] Negative Normal Negative [facility] Comment on above: Order Comment: Speci men Type: URINE SPECIMEN [facility] Address: [address] [place] [address] Performed By: #### 2 4356-8 #### [facility] CLIA [id number] [address] [place] [address] [place] Hemoglobin Ql (U) Negative Normal Negative [facility] Comment on above: Order Comment: Speci men Type: URINE SPECIMEN [facility] Address: [address] [place] [address] Performed By: #### 2 4356-8 #### [facility] CLIA [id number] [address] [place] [address] [place] Ketones Ql (U) Negative Normal Negative [facility] Comment on above: Order Comment: Speci men Type: URINE SPECIMEN [facility] Address: [address] [place] [address] Performed By: #### 2 4356-8 #### [facility] CLIA [id number] [address] [place] [address] [place] Leukocyte esterase Test strip Ql (U) Negative Normal Negative [facility] Comment on above: Order Comment: Speci men Type: URINE SPECIMEN [facility] Address: [address] [place] [address] Performed By: #### 2 4356-8 #### [facility] CLIA [id number] [address] [place] [address] [place] Nitrite Ql (U) Negative Normal Negative [facility] Comment on above: Order Comment: Speci men Type: URINE SPECIMEN [facility] Address: [address] [place] [address] Performed By: #### 2 4356-8 #### [facility] CLIA [id number] [address] [place] [address] [place] pH (U) 6.0 [pH] Normal 5.0-8.0 [facility] Comment on above: Order Comment: Speci men Type: URINE SPECIMEN [facility] Address: [address] [place] [address] Performed By: #### 2 4356-8 #### [facility] CLIA [id number] [address] [place] [address] [place] Protein (U) [Mass/Vol] Negative Normal Negative [facility] Comment on above: Order Comment: Speci men Type: URINE SPECIMEN [facility] Address: [address] [place] [address] Performed By: #### 2 4356-8 #### [facility] CLIA [id number] [address] [place] [address] [place] RBC LM.HPF (Urine sed) [#/Area] 0-3 /HPF Normal 0-3 /HPF [facility] Comment on above: Order Comment: Speci men Type: URINE SPECIMEN [facility] Address: [address] [place] [address] Performed By: #### 2 4356-8 #### [facility] CLIA [id number] [address] [place] [address] [place] Specific gravity (U) [Rel density] 1.010 Normal 1.005-1.030 [facility] Comment on above: Order Comment: Speci men Type: URINE SPECIMEN [facility] Address: [address] [place] [address] Performed By: #### 2 4356-8 #### [facility] CLIA [id number] [address] [place] [address] [place] Urobilinogen Ql (U) 0.2 EU/dL Normal 0.2-1.0 EU/dL [facility] Comment on above: Order Comment: Speci men Type: URINE SPECIMEN [facility] Address: [address] [place] [address] Performed By: #### 2 4356-8 #### [facility] CLIA [id number] [address] [place] [address] [facility] WBC LM.HPF (Urine sed) [#/Area] 0-5 /HPF Normal 0-5 /HPF [facility] Comment on above: Order Comment: Speci men Type: URINE SPECIMEN [facility] Address: [address] [place] [address] Performed By: #### 2 4356-8 #### [facility] CLIA [id number] [address] [place] [address] [place] XR CHEST 1V FRONTALon [...] radiographic findings to suggest acute cardiopulmonary process. Mat Sewer: PSCB Transcribe Date/Time: May 15 2025 11:01A Dictated by : LAURIE SOL MD This examination was interpreted and the report reviewed and electronically signed by: LAURIE SOL MD on May 15 2025 11:02AM EST [id number] Normal [facility] Absolute lymphocyte countOrd ered By: Arnaud Borja on 05-07-2025 Lymphocytes Auto (Unsp spec) [#/Vol] 1.91 10*3/uL 0.83-4.51 [facility] Absolute neutrophil countOrd ered By: Arnaud Borja on 05-07-2025 Neutrophils (Bld) [#/Vol] 3.4 10*3/uL 2.0-7.7 [facility] Anion gap in Serum or Plasma Ordered By: Arnaud Borja on 05-07-2025 Anion gap [Moles/Vol] 12 mmol/L - [facility] Automated lymphocyte count a s percentage of total leukocytesOrdered By: [facility] Center[facility]es Borja on 05-07-2025 Lymphocytes/100 WBC Auto (Unsp spec) 32.9 % [facility] BUN/creatinine ratioOrdered By: [facility] Huong on 05-07-2025 Urea nitrogen/Creatinine [Mass ratio] 14.9 mg/mg 05-19 [facility] Basophil percentageOrdered B y: Arnaud Borja on 05-07-2025 Basophils/100 WBC (Bld) 0.7 % 0- [facility] Bilirubin, totalOrdered By: [facility] Bor[facility] on 05-07-2025 Bilirubin [Mass/Vol] 0.27 mg/dL 0.00-1.30 [facility] CBC W/Diff, Automatedon 10- Absolute Lymph 1.91 X10 3/uL Normal 0.83-4.51 [facility] Comment on above: Performed By: #### L 500.2500, L501.5200, L100.0100 #### [facility] [address] [place], [address] Absolute Neut 3.4 X10 3/uL Normal 2.0-7.7 [facility] Comment on above: Performed By: #### L 500.2500, L501.5200, L100.0100 #### [facility] [address] [place], [address] Basophils/100 WBC (Bld) 0.7 % Normal 0-1 [facility] Comment on above: Performed By: #### L 500.2500, L501.5200, L100.0100 #### [facility] [address] [place], [address] Eosinophils/100 WBC (Bld) 2.1 % Normal 0-5 [facility] Comment on above: Performed By: #### L 500.2500, L501.5200, L100.0100 #### [facility] [address] [place], [address] Erythrocyte distribution width (RBC) [Ratio] 17.2 % High 11.6-14.6 [facility] Comment on above: Performed By: #### L 500.2500, L501.5200, L100.0100 #### [facility] [address] [place], [address] Hematocrit (Bld) [Volume fraction] 28.1 % Low 37-47 [facility] Comment on above: Performed By: #### L 500.2500, L501.5200, L100.0100 #### [facility] [address] [place], [address] Hemoglobin (Bld) [Mass/Vol] 9.3 g/dL Low 12.0-15.0 [facility] Comment on above: Performed By: #### L 500.2500, L501.5200, L100.0100 #### [facility] [address] [place], [address] IG% 0.200 Normal 0.0-0.9 [facility] Comment on above: Result Comment: IG% - Immature Granulocytes (promyelocytes, myelocytes and metamyelocytes) > 1% indicates that a LEFT SHIFT is Present. Performed By: #### L 500.2500, L501.5200, L100.0100 #### [facility] [address] [place], [address] Lymphocytes/100 WBC (Bld) 32.9 % Normal 19-41 [facility] Comment on above: Performed By: #### L 500.2500, L501.5200, L100.0100 #### [facility] [address] [place], [address] MCH (RBC) [Entitic mass] 30.0 pg Normal 27.0-32.0 [facility] Comment on above: Performed By: #### L 500.2500, L501.5200, L100.0100 #### [facility] [address] [place], [address] MCHC (RBC) [Mass/Vol] 33.1 g/dL Normal 32-36 [facility] Comment on above: Performed By: #### L 500.2500, L501.5200, L100.0100 #### [facility] [address] [place], [address] MCV (RBC) [Entitic vol] 90.6 fL Normal 81-99 [facility] Comment on above: Performed By: #### L 500.2500, L501.5200, L100.0100 #### [facility] [address] [place], [address] Monocytes/100 WBC (Bld) 5.5 % Normal 0-10 [facility] Comment on above: Performed By: #### L 500.2500, L501.5200, L100.0100 #### [facility] [address] [place], [address] Neutrophils/100 WBC (Bld) 58.6 % Normal 47-70 [facility] Comment on above: Performed By: #### L 500.2500, L501.5200, L100.0100 #### [facility] [address] [place], [address] Nucleated RBC (Bld) [#/Vol] 0 10*3/uL Normal 0-5 [facility] Comment on above: Performed By: #### L 500.2500, L501.5200, L100.0100 #### [facility] [address] [place], [address] Platelet mean volume (Bld) [Entitic vol] 9.1 fL Normal 6.2-12.0 [facility] Comment on above: Performed By: #### L 500.2500, L501.5200, L100.0100 #### [facility] [address] [place], [address] Platelets (Bld) [#/Vol] 333 10*3/uL Normal 150-450 [facility] Comment on above: Performed By: #### L 500.2500, L501.5200, L100.0100 #### [facility] [address] [place], [address] RBC (Bld) [#/Vol] 3.10 10*6/uL Low 4.2-5.4 [facility] Comment on above: Performed By: #### L 500.2500, L501.5200, L100.0100 #### [facility] [address] [place], [address] RDW SD 57.1 fl High 35.1-43.9 [facility] Comment on above: Performed By: #### L 500.2500, L501.5200, L100.0100 #### [facility] [address] [place], [address] WBC (Bld) [#/Vol] 5.8 10*3/uL Normal 4.4-11.0 [facility] Comment on above: Performed By: #### L 500.2500, L501.5200, L100.0100 #### [facility] [address] [place], [address] Carbon dioxide, total [Moles /volume] in Central venous bloodOrdered By: Arnaud Borja on 05-07-2025 CO2 [Moles/Vol] 23.4 mmol/L 21.0-32.0 [facility] Chloride assayOrdered By: Jluis Borja on 05-07-2025 Chloride [Moles/Vol] 104 mmol/L 98-108 [facility] Comprehensive Metabolic Prof ilon 05-07-2025 Albumin [Mass/Vol] 4.1 g/dL Normal 3.5-5.0 [facility] Comment on above: Performed By: #### L 500.2500, L501.5200, L100.0100 #### [facility] [address] [place], [address] Albumin/Globulin [Mass ratio] 1.2 {ratio} Normal 0.9-2.4 [facility] Comment on above: Performed By: #### L 500.2500, L501.5200, L100.0100 #### [facility] [address] [place], [address] ALK PHOS 121 U/L High 35-104 [facility] Comment on above: Performed By: #### L 500.2500, L501.5200, L100.0100 #### [facility] [address] [place], [address] ALT [Catalytic activity/Vol] 21 U/L Normal <=34 [facility] Comment on above: Performed By: #### L 500.2500, L501.5200, L100.0100 #### [facility] [address] [place], [address] AST [Catalytic activity/Vol] 22 U/L Normal <=31 [facility] Comment on above: Performed By: #### L 500.2500, L501.5200, L100.0100 #### [facility] [address] [place], [address] Bilirubin [Mass/Vol] 0.27 mg/dL Normal 0.00-1.30 [facility] Comment on above: Performed By: #### L 500.2500, L501.5200, L100.0100 #### [facility] [address] [place], [address] BUN/CRE 14.9 RATIO Normal 10-20 [facility] Comment on above: Performed By: #### L 500.2500, L501.5200, L100.0100 #### [facility] [address] [place], [address] Calcium [Mass/Vol] 9.5 mg/dL Normal 7.6-11.0 [facility] Comment on above: Performed By: #### L 500.2500, L501.5200, L100.0100 #### [facility] [address] [place], [address] Chloride [Moles/Vol] 104 mmol/L Normal 98-108 [facility] Comment on above: Performed By: #### L 500.2500, L501.5200, L100.0100 #### [facility] [address] [place], [address] CO2 [Moles/Vol] 23.4 mmol/L Normal 21.0-32.0 [facility] Comment on above: Performed By: #### L 500.2500, L501.5200, L100.0100 #### [facility] [address] [place], [address] Creatinine [Mass/Vol] 0.83 mg/dL Normal 0.70-1.20 [facility] Comment on above: Performed By: #### L 500.2500, L501.5200, L100.0100 #### [facility] [address] [place], [address] ECRCL 77.83 ml/min Normal 50-250 [facility] Comment on above: Performed By: #### L 500.2500, L501.5200, L100.0100 #### [facility] [address] [place], [address] GAP 12 Normal 5-15 [facility] Comment on above: Performed By: #### L 500.2500, L501.5200, L100.0100 #### [facility] [address] [place], [address] GFR/1.73 sq M.predicted among non-blacks MDRD (S/P/Bld) [Vol rate/Area] 89 mL/min/{1.73_m2} Normal >60 [facility] Comment on above: Result Comment: mL/m in/1.73m2 CKD-EPI Creatinine Equation (2020) Performed By: #### L 500.2500, L501.5200, L100.0100 #### [facility] [address] [place], [address] Globulin (S) [Mass/Vol] 3.5 g/dL Normal 2.2-4.2 [facility] Comment on above: Performed By: #### L 500.2500, L501.5200, L100.0100 #### [facility] [address] [place], [address] Glucose [Mass/Vol] 98 mg/dL Normal 70-99 [facility] Comment on above: Performed By: #### L 500.2500, L501.5200, L100.0100 #### [facility] [address] [place], [address] Potassium [Moles/Vol] 3.6 mmol/L Normal 3.3-5.1 [facility] Comment on above: Performed By: #### L 500.2500, L501.5200, L100.0100 #### [facility] [address] [place], [address] Sodium [Moles/Vol] 140 mmol/L Normal 133-145 [facility] Comment on above: Performed By: #### L 500.2500, L501.5200, L100.0100 #### [facility] [address] [place], [address] T PROT 7.5 g/dL Normal 5.9-8.4 [facility] Comment on above: Performed By: #### L 500.2500, L501.5200, L100.0100 #### [facility] [address] [place], [address] Urea nitrogen [Mass/Vol] 12 mg/dL Normal 4-19 [facility] Comment on above: Performed By: #### L 500.2500, L501.5200, L100.0100 #### [facility] [address] [place], [address] Eosinophil percentageOrdered By: Arnaud Borja on 05-07-2025 Eosinophils/100 WBC (Bld) 2.1 % 0-5 [facility] Erythrocyte distribution wid th ratioOrdered By: [facility] on 05-07-2025 Erythrocyte distribution width (RBC) [Ratio] 17.2 % High 11.6-14.6 [facility] Erythrocyte distribution wid th standard deviationOrdered By: [facility] on 05-07-2025 Erythrocyte distribution width (RBC) [Ratio] 57.1 fl High 35.1-43.9 [facility] Ferritinon 05-07-2025 Ferritin [Mass/Vol] 170 ng/mL Normal 22-378 [facility] Comment on above: Performed By: #### L 501.2300 #### [facility] [address] [place], [address] Glomerular filtration rate ( GFR) estimation/1.73 sq m using serum, plasma, or whole bOrdered By: Arnaud Borja on 05-07-2025 GFR/1.73 sq M.predicted among non-blacks MDRD (S/P/Bld) [Vol rate/Area] 89 mL/min/{1.73_m2} >60 [facility] Comment on above: mL/min/1.73m2 CKD-EP I Creatinine Equation (2020) Hematocrit Auto (Bld) [Volum e fraction]Ordered By: Arnaud Borja on 05-07-2025 Hematocrit (Bld) [Volume fraction] 28.1 % Low 37-47 [facility] Hemoglobin measurementOrdere d By: Arnaud Borja on 05-07-2025 Hemoglobin (Bld) [Mass/Vol] 9.3 g/dL Low 12.0-15.0 [facility] Immature granulocytes/100 WB C Auto (Bld)Ordered By: Arnaud Borja on 05-07-2025 Immature granulocytes/100 WBC (Bld) 0.200 % 0.0-0.9 [facility] Comment on above: IG% - Immature Granu locytes (promyelocytes, myelocytes and metamyelocytes) > 1% indicates that a LEFT SHIFT is Present. Laboratory - Chemistry and C hemistry - challengeOrdered By: Arnaud Borja on 05-07-2025 AST [Catalytic activity/Vol] 22 U/L <32 [facility] MCV (mean corpuscular volume ) determinationOrdered By: [facility] on 05-07-2025 MCV (RBC) [Entitic vol] 90.6 fL 81-99 [facility] Magnesiumon 05-07-2025 Magnesium [Mass/Vol] 2.0 mg/dL Normal 1.5-2.2 [facility] Comment on above: Performed By: #### L 500.2500, L501.5200, L100.0100 #### [facility] [address] [place], [address] Magnesium measurement (mass/ volume)Ordered By: Arnaud Borja on 05-07-2025 Magnesium (Unsp spec) [Mass/Vol] 2.0 mg/dL 1.5-2.2 [facility] Mean corpuscular hemoglobin (MCH) determinationOrdered By: Arnaud Borja on 05-07-2025 MCH (RBC) [Entitic mass] 30.0 pg 27.0-32.0 [facility] Mean corpuscular hemoglobin concentration (MCHC) determinationOrdered By: Arnaud Borja on 05-07-2025 MCHC (RBC) [Mass/Vol] 33.1 g/dL 32-36 [facility] Mean platelet volume determi nationOrdered By: Arnaud Borja on 05-07-2025 Platelet mean volume (Bld) [Entitic vol] 9.1 fL 6.2-12.0 [facility] Monocyte percentageOrdered B y: Arnaud Borja on 05-07-2025 Monocytes/100 WBC (Bld) 5.5 % 0-10 [facility] Neutrophil percentageOrdered By: Arnaud Borja on 05-07-2025 Neutrophils/100 WBC (Bld) 58.6 % 47-70 [facility] Nucleated red blood cell per centageOrdered By: [facility] on 05-07-2025 Nucleated RBC/100 WBC (Bld) [Ratio] 0 % 0-5 [facility] Oncology Visit Reporton 10-0 Oncology Visit Report [facility] [place] [facility] [address] 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 Treatment summary and response: [facility] February 13, 2025 Interval History The patient is presenting to clinic for an evaluation anticipating she will begin c4 neoadjuvan (more content not included)... Normal [facility] Platelet countOrdered By: Jluis Borja on 05-07-2025 Platelets (Bld) [#/Vol] 333 10*3/uL 150-450 [facility] Potassium measurement (mass/ volume)Ordered By: Arnaud Borja on 05-07-2025 Potassium (Unsp spec) [Mass/Vol] 3.6 mmol/L 3.3-5.1 [facility] RBC Auto (Bld) [#/Vol]Ordere d By: Arnaud Borja on 05-07-2025 RBC (Bld) [#/Vol] 3.10 10*6/uL Low 4.2-5.4 [facility] Retic Panelon 05-07-2025 IM RET FRACTION 13.50 Normal 3.00-15.90 [facility] Comment on above: Performed By: #### L 565.3810 #### [facility] [address] [place], [address] RET-HE 31.0 pg Normal 30-35 [facility] Comment on above: Performed By: #### L 963.2300 #### [facility] [address] [place], [place], [id number] Retic Count 1.96 High 0.5-1.5 [facility] Comment on above: Performed By: #### L 501.2300 #### [facility] [address] [facility] [place], [place], [address] Reticulocyte hemoglobin equi valent (RET-He) measurementOrdered By: Arnaud Borja on 05-07-2025 Hemoglobin (Reticulocytes) [Entitic mass] 31.0 pg 30-35 [facility] Reticulocytes Auto (Bld) [#/ Vol]Ordered By: Arnaud Borja on 05-07-2025 Reticulocytes/100 RBC (Bld) 1.96 % High 0.5-1.5 [facility] Serum creatinine measurement (mass/volume)Ordered By: Arnaud Borja on 05-07-2025 Creatinine [Mass/Vol] 0.83 mg/dL 0.70-1.20 [facility] Serum globulin measurementOr dered By: Arnaud Borja on 05-07-2025 Globulin (S) [Mass/Vol] 3.5 g/dL 2.2-4.2 [facility] Serum glucose measurement (m ass/volume)Ordered By: Arnaud Borja on 05-07-2025 Glucose [Mass/Vol] 98 mg/dL 70-99 [facility] Serum or plasma alanine rainey otransferase (ALT) measurementOrdered By: Arnaud Borja on 05-07-2025 ALT [Catalytic activity/Vol] 21 U/L <35 [facility] Serum or plasma albumin ceasar urement (mass/volume)Ordered By: Arnaud Borja on 05-07-2025 Albumin [Mass/Vol] 4.1 g/dL 3.5-5.0 [facility] Serum or plasma albumin/glob ulin mass ratioOrdered By: Arnaud Borja on 05-07-2025 Albumin/Globulin [Mass ratio] 1.2 {ratio} 0.9-2.4 [facility] Serum or plasma alkaline dasia sphatase measurementOrdered By: Arnaud Borja on 05-07-2025 ALP [Catalytic activity/Vol] 121 U/L High 35-104 [facility] Serum or plasma calcium ceasar urement (mass/volume)Ordered By: Arnaud Huong on 05-07-2025 Calcium [Mass/Vol] 9.5 mg/dL 7.6-11.0 [facility] Serum or plasma urea nitroge n measurement (mass/volume)Ordered By: Arnaud Huong on 05-07-2025 Urea nitrogen [Mass/Vol] 12 mg/dL 4-19 [facility] Sodium levelOrdered By: Meir harvey Huong on 05-07-2025 Sodium [Moles/Vol] 140 mmol/L 133-145 [facility] Total proteinOrdered By: Charanjit mcmahan Huong on 05-07-2025 Protein [Mass/Vol] 7.5 g/dL 5.9-8.4 [facility] Urinalysis, Completeon 05-07 BACTERIA RARE Normal None Seen [facility] Comment on above: Order Comment: CLEAN CATCH Performed By: #### L 400.0001 ####[facility] [address] [facility] [address] EPI,SQUAMOUS 0-5 SEEN Normal 5-10 [facility] Comment on above: Order Comment: CLEAN CATCH Performed By: #### L 400.0001 ####[facility] [address] [facility] [address] WBC 0-5 SEEN Normal 0-5 [facility] Comment on above: Order Comment: CLEAN CATCH Performed By: #### L 400.0001 ####[facility] [address] [place], [address] Mucus Ql (Urine sed) 0 SEEN Normal [facility] Comment on above: Order Comment: CLEAN CATCH Performed By: #### L 400.0001 ####[facility] [address] [place], [address] RBC 0 SEEN Normal 0-5 [facility] Comment on above: Order Comment: CLEAN CATCH Performed By: #### L 400.0001 ####[facility] [address] [place], [address] White blood cell (WBC) count Ordered By: Arnaud Borja on 05-07-2025 WBC (Bld) [#/Vol] 5.8 10*3/uL 4.4-11.0 [facility] CBC W/Diff, Automatedon 10-0 Absolute Neut Normal 2.0-7.7 [facility] Comment on above: Result Comment: NO S PECIMEN COLLECTED Performed By: #### L 500.4050, L100.0100 #### [facility] [address] [place], [address] HCT Normal 37-47 [facility] Comment on above: Result Comment: NO S PECIMEN COLLECTED Performed By: #### L 500.4050, L100.0100 #### [facility] [address] [place], [address] HGB Normal 12.0-15.0 [facility] Comment on above: Result Comment: NO S PECIMEN COLLECTED Performed By: #### L 500.4050, L100.0100 #### [facility] [address] [place], [address] MCH Normal 27.0-32.0 [facility] Comment on above: Result Comment: NO S PECIMEN COLLECTED Performed By: #### L 500.4050, L100.0100 #### [facility] [address] [place], [address] MCHC Normal 32-36 [facility] Comment on above: Result Comment: NO S PECIMEN COLLECTED Performed By: #### L 500.4050, L100.0100 #### [facility] [address] [place], [address] MCV Normal 81-99 [facility] Comment on above: Result Comment: NO S PECIMEN COLLECTED Performed By: #### L 500.4050, L100.0100 #### [facility] [address] [place], [address] NEUT% Normal 47-70 [facility] Comment on above: Result Comment: NO S PECIMEN COLLECTED Performed By: #### L 500.4050, L100.0100 #### [facility] [address] [place], [address] PLT Normal 150-450 [facility] Comment on above: Result Comment: NO S PECIMEN COLLECTED Performed By: #### L 500.4050, L100.0100 #### [facility] [address] [place], [address] RBC Normal 4.2-5.4 [facility] Comment on above: Result Comment: NO S PECIMEN COLLECTED Performed By: #### L 500.4050, L100.0100 #### [facility] [address] [place], [address] RDW CV Normal 11.6-14.6 [facility] Comment on above: Result Comment: NO S PECIMEN COLLECTED Performed By: #### L 500.4050, L100.0100 #### [facility] [address] [place], [address] RDW SD Normal 35.1-43.9 [facility] Comment on above: Result Comment: NO S PECIMEN COLLECTED Performed By: #### L 500.4050, L100.0100 #### [facility] [address] [place], [address] WBC Normal 4.4-11.0 [facility] Comment on above: Result Comment: NO S PECIMEN COLLECTED Performed By: #### L 500.4050, L100.0100 #### [facility] [address] [place], [address] Comprehensive Metabolic Prof ilon 04-30-2025 ALB Normal 3.5-5.0 [facility] Comment on above: Result Comment: NO S PECIMEN COLLECTED Performed By: #### L 500.4050, L100.0100 #### [facility] [address] [place], [address] ALK PHOS Normal 35-104 [facility] Comment on above: Result Comment: NO S PECIMEN COLLECTED Performed By: #### L 500.4050, L100.0100 #### [facility] [address] [place], [address] ALT Normal <=34 [facility] Comment on above: Result Comment: NO S PECIMEN COLLECTED Performed By: #### L 500.4050, L100.0100 #### [facility] [address] [place], [address] AST Normal <=31 [facility] Comment on above: Result Comment: NO S PECIMEN COLLECTED Performed By: #### L 500.4050, L100.0100 #### [facility] [address] [place], [address] BUN Normal 4-19 [facility] Comment on above: Result Comment: NO S PECIMEN COLLECTED Performed By: #### L 500.4050, L100.0100 #### [facility] [address] [place], [address] BUN/CRE Normal 10-20 [facility] Comment on above: Result Comment: NO S PECIMEN COLLECTED Performed By: #### L 500.4050, L100.0100 #### [facility] [address] [place], [address] Calcium Normal 7.6-11.0 [facility] Comment on above: Result Comment: NO S PECIMEN COLLECTED Performed By: #### L 500.4050, L100.0100 #### [facility] [address] [place], [address] CL Normal 98-108 [facility] Comment on above: Result Comment: NO S PECIMEN COLLECTED Performed By: #### L 500.4050, L100.0100 #### [facility] [address] [place], [address] CO2 Normal 21.0-32.0 [facility] Comment on above: Result Comment: NO S PECIMEN COLLECTED Performed By: #### L 500.4050, L100.0100 #### [facility] [address] [place], [address] CREAT,SERUM Normal 0.70-1.20 [facility] Comment on above: Result Comment: NO S PECIMEN COLLECTED Performed By: #### L 500.4050, L100.0100 #### [facility] [address] [place], [address] eGFR Normal >60 [facility] Comment on above: Result Comment: NO S PECIMEN COLLECTED Performed By: #### L 500.4050, L100.0100 #### [facility] [address] [place], [address] GAP Normal 5-15 [facility] Comment on above: Result Comment: NO S PECIMEN COLLECTED Performed By: #### L 500.4050, L100.0100 #### [facility] [address] [place], [address] GLU Normal 70-99 [facility] Comment on above: Result Comment: NO S PECIMEN COLLECTED Performed By: #### L 500.4050, L100.0100 #### [facility] [address] [place], [address] Potassium Normal 3.3-5.1 [facility] Comment on above: Result Comment: NO S PECIMEN COLLECTED Performed By: #### L 500.4050, L100.0100 #### [facility] [address] [place], [address] T BILI Normal 0.00-1.30 [facility] Comment on above: Result Comment: NO S PECIMEN COLLECTED Performed By: #### L 500.4050, L100.0100 #### [facility] [address] [place], [address] T PROT Normal 5.9-8.4 [facility] Comment on above: Result Comment: NO S PECIMEN COLLECTED Performed By: #### L 500.4050, L100.0100 #### [facility] [address] [place], [address] Comprehensive Metabolic Profil Normal 133-145 [facility] Comment on above: Result Comment: NO S PECIMEN COLLECTED Performed By: #### L 500.4050, L100.0100 #### [facility] [address] [place], [address] CBC W/Diff, Automatedon 09-2 Absolute Neut Normal 2.0-7.7 [facility] Comment on above: Result Comment: NO S PECIMEN COLLECTED Performed By: #### L 500.4050, L100.0100 #### [facility] [address] [place], [address] HCT Normal 37-47 [facility] Comment on above: Result Comment: NO S PECIMEN COLLECTED Performed By: #### L 500.4050, L100.0100 #### [facility] [address] [place], [address] HGB Normal 12.0-15.0 [facility] Comment on above: Result Comment: NO S PECIMEN COLLECTED Performed By: #### L 500.4050, L100.0100 #### [facility] [address] [place], [address] MCH Normal 27.0-32.0 [facility] Comment on above: Result Comment: NO S PECIMEN COLLECTED Performed By: #### L 500.4050, L100.0100 #### [facility] [address] [place], [address] MCHC Normal 32-36 [facility] Comment on above: Result Comment: NO S PECIMEN COLLECTED Performed By: #### L 500.4050, L100.0100 #### [facility] [address] [place], [address] MCV Normal 81-99 [facility] Comment on above: Result Comment: NO S PECIMEN COLLECTED Performed By: #### L 500.4050, L100.0100 #### [facility] [address] [place], [address] NEUT% Normal 47-70 [facility] Comment on above: Result Comment: NO S PECIMEN COLLECTED Performed By: #### L 500.4050, L100.0100 #### [facility] [address] [place], [address] PLT Normal 150-450 [facility] Comment on above: Result Comment: NO S PECIMEN COLLECTED Performed By: #### L 500.4050, L100.0100 #### [facility] [address] [place], [address] RBC Normal 4.2-5.4 [facility] Comment on above: Result Comment: NO S PECIMEN COLLECTED Performed By: #### L 500.4050, L100.0100 #### [facility] [address] [place], [address] RDW CV Normal 11.6-14.6 [facility] Comment on above: Result Comment: NO S PECIMEN COLLECTED Performed By: #### L 500.4050, L100.0100 #### [facility] [address] [place], [address] RDW SD Normal 35.1-43.9 [facility] Comment on above: Result Comment: NO S PECIMEN COLLECTED Performed By: #### L 500.4050, L100.0100 #### [facility] [address] [place], [address] WBC Normal 4.4-11.0 [facility] Comment on above: Result Comment: NO S PECIMEN COLLECTED Performed By: #### L 500.4050, L100.0100 #### [facility] [address] [place], [address] Comprehensive Metabolic Prof ilon 04-23-2025 ALB Normal 3.5-5.0 [facility] Comment on above: Result Comment: NO S PECIMEN COLLECTED Performed By: #### L 500.4050, L100.0100 #### [facility] [address] [place], [address] ALK PHOS Normal 35-104 [facility] Comment on above: Result Comment: NO S PECIMEN COLLECTED Performed By: #### L 500.4050, L100.0100 #### [facility] [address] [place], [address] ALT Normal <=34 [facility] Comment on above: Result Comment: NO S PECIMEN COLLECTED Performed By: #### L 500.4050, L100.0100 #### [facility] [address] [place], [address] AST Normal <=31 [facility] Comment on above: Result Comment: NO S PECIMEN COLLECTED Performed By: #### L 500.4050, L100.0100 #### [facility] [address] [place], [address] BUN Normal 4-19 [facility] Comment on above: Result Comment: NO S PECIMEN COLLECTED Performed By: #### L 500.4050, L100.0100 #### [facility] [address] [place], [address] BUN/CRE Normal 10-20 [facility] Comment on above: Result Comment: NO S PECIMEN COLLECTED Performed By: #### L 500.4050, L100.0100 #### [facility] [facility] [address] [place], [address] Calcium Normal 7.6-11.0 [facility] Comment on above: Result Comment: NO S PECIMEN COLLECTED Performed By: #### L 500.4050, L100.0100 #### [facility] [address] [place], [address] CL Normal 98-108 [facility] Comment on above: Result Comment: NO S PECIMEN COLLECTED Performed By: #### L 500.4050, L100.0100 #### [facility] [address] [place], [address] CO2 Normal 21.0-32.0 [facility] Comment on above: Result Comment: NO S PECIMEN COLLECTED Performed By: #### L 500.4050, L100.0100 #### [facility] [address] [place], [address] CREAT,SERUM Normal 0.70-1.20 [facility] Comment on above: Result Comment: NO S PECIMEN COLLECTED Performed By: #### L 500.4050, L100.0100 #### [facility] [address] [place], [address] eGFR Normal >60 [facility] Comment on above: Result Comment: NO S PECIMEN COLLECTED Performed By: #### L 500.4050, L100.0100 #### [facility] [address] [place], [address] GAP Normal 5-15 [facility] Comment on above: Result Comment: NO S PECIMEN COLLECTED Performed By: #### L 500.4050, L100.0100 #### [facility] [address] [place], [address] GLU Normal 70-99 [facility] Comment on above: Result Comment: NO S PECIMEN COLLECTED Performed By: #### L 500.4050, L100.0100 #### [facility] [address] [place], [address] Potassium Normal 3.3-5.1 [facility] Comment on above: Result Comment: NO S PECIMEN COLLECTED Performed By: #### L 500.4050, L100.0100 #### [facility] [address] [place], [address] T BILI Normal 0.00-1.30 [facility] Comment on above: Result Comment: NO S PECIMEN COLLECTED Performed By: #### L 500.4050, L100.0100 #### [facility] [address] [place], [address] T PROT Normal 5.9-8.4 [facility] Comment on above: Result Comment: NO S PECIMEN COLLECTED Performed By: #### L 500.4050, L100.0100 #### [facility] [address] [place], [address] Comprehensive Metabolic Profil Normal 133-145 [facility] Comment on above: Result Comment: NO S PECIMEN COLLECTED Performed By: #### L 500.4050, L100.0100 #### [facility] [address] [place], [address] Absolute lymphocyte countOrd ered By: Arnaud Borja on 04-02-2025 Lymphocytes Auto (Unsp spec) [#/Vol] 1.58 10*3/uL 0.83-4.51 [facility] Absolute neutrophil countOrd ered By: Arnaud Borja on 04-02-2025 Neutrophils (Bld) [#/Vol] 3.5 10*3/uL 2.0-7.7 [facility] Anion gap in Serum or Plasma Ordered By: Arnaud Borja on 04-02-2025 Anion gap [Moles/Vol] 11 mmol/L 5-15 [facility] Automated lymphocyte count a s percentage of total leukocytesOrdered By: Arnaud Crummusa on 04-02-2025 Lymphocytes/100 WBC Auto (Unsp spec) 28.1 % 19-41 [facility] BUN/creatinine ratioOrdered By: [facility] on 04-02-2025 Urea nitrogen/Creatinine [Mass ratio] 24.2 mg/mg High 10-20 [facility] Basophil percentageOrdered B y: Arnaud العلي on 04-02-2025 Basophils/100 WBC (Bld) 0.9 % 0-1 [facility] Bilirubin, totalOrdered By: [facility] Crummus[facility] on 04-02-2025 Bilirubin [Mass/Vol] 0.19 mg/dL 0.00-1.30 [facility] CBC W/Diff, Automatedon Absolute Lymph 1.58 X10 3/uL Normal 0.83-4.51 [facility] Comment on above: Performed By: #### L 501.2300 #### [facility] [address] [place], [address] Absolute Neut 3.5 X10 3/uL Normal 2.0-7.7 [facility] Comment on above: Performed By: #### L 501.2300 #### [facility] [address] [place], [address] Basophils/100 WBC (Bld) 0.9 % Normal 0-1 [facility] Comment on above: Performed By: #### L 501.2300 #### [facility] [address] [place], [address] Eosinophils/100 WBC (Bld) 0.2 % Normal 0-5 [facility] Comment on above: Performed By: #### L 501.2300 #### [facility] [address] [place], [address] Erythrocyte distribution width (RBC) [Ratio] 13.2 % Normal 11.6-14.6 [facility] Comment on above: Performed By: #### L 501.2300 #### [facility] [address] [place], [address] Hematocrit (Bld) [Volume fraction] 24.0 % Low 37-47 [facility] Comment on above: Performed By: #### L 501.2300 #### [facility] [address] [place], [address] Hemoglobin (Bld) [Mass/Vol] 8.1 g/dL Low 12.0-15.0 [facility] Comment on above: Performed By: #### L 501.2300 #### [facility] [address] [place], [address] IG% 0.200 Normal 0.0-0.9 [facility] Comment on above: Result Comment: IG% - Immature Granulocytes (promyelocytes, myelocytes and metamyelocytes) > 1% indicates that a LEFT SHIFT is Present. Performed By: #### L 501.2300 #### [facility] [address] [place], [address] Lymphocytes/100 WBC (Bld) 28.1 % Normal 19-41 [facility] Comment on above: Performed By: #### L 501.2300 #### [facility] [address] [place], [address] MCH (RBC) [Entitic mass] 28.9 pg Normal 27.0-32.0 [facility] Comment on above: Performed By: #### L 501.2300 #### [facility] [address] [place], [address] MCHC (RBC) [Mass/Vol] 33.8 g/dL Normal 32-36 [facility] Comment on above: Performed By: #### L 501.2300 #### [facility] [address] [place], [address] MCV (RBC) [Entitic vol] 85.7 fL Normal 81-99 [facility] Comment on above: Performed By: #### L 501.2300 #### [facility] [address] [place], [address] Monocytes/100 WBC (Bld) 9.2 % Normal 0-10 [facility] Comment on above: Performed By: #### L 501.2300 #### [facility] [address] [place], [address] Neutrophils/100 WBC (Bld) 61.4 % Normal 47-70 [facility] Comment on above: Performed By: #### L 501.2300 #### [facility] [address] [place], [address] Nucleated RBC (Bld) [#/Vol] 0 10*3/uL Normal 0-5 [facility] Comment on above: Performed By: #### L 501.2300 #### [facility] [address] [place], [address] Platelet mean volume (Bld) [Entitic vol] 9.8 fL Normal 6.2-12.0 [facility] Comment on above: Performed By: #### L 501.2300 #### [facility] [address] [place], [address] Platelets (Bld) [#/Vol] 243 10*3/uL Normal 150-450 [facility] Comment on above: Performed By: #### L 501.2300 #### [facility] [address] [place], [address] RBC (Bld) [#/Vol] 2.80 10*6/uL Low 4.2-5.4 [facility] Comment on above: Performed By: #### L 501.2300 #### [facility] [address] [place], [address] RDW SD 39.0 fl Normal 35.1-43.9 [facility] Comment on above: Performed By: #### L 501.2300 #### [facility] [address] [place], [address] WBC (Bld) [#/Vol] 5.6 10*3/uL Normal 4.4-11.0 [facility] Comment on above: Performed By: #### L 501.2300 #### [facility] [address] [place], [address] Carbon dioxide, total [Moles /volume] in Central venous bloodOrdered By: Arnaud Borja on 04-02-2025 CO2 [Moles/Vol] 22.5 mmol/L 21.0-32.0 [facility] Chloride assayOrdered By: Jluis Borja on 04-02-2025 Chloride [Moles/Vol] 106 mmol/L 98-108 [facility] Comprehensive Metabolic Prof ilon 04-02-2025 Albumin [Mass/Vol] 4.1 g/dL Normal 3.5-5.0 [facility] Comment on above: Performed By: #### L 501.2300 #### [facility] [address] [place], [address] Albumin/Globulin [Mass ratio] 1.4 {ratio} Normal 0.9-2.4 [facility] Comment on above: Performed By: #### L 501.2300 #### [facility] [address] [place], [address] ALK PHOS 97 U/L Normal 35-104 [facility] Comment on above: Performed By: #### L 501.2300 #### [facility] [address] [place], [address] ALT [Catalytic activity/Vol] 60 U/L High <=34 [facility] Comment on above: Performed By: #### L 501.2300 #### [facility] [address] [place], [address] AST [Catalytic activity/Vol] 49 U/L High <=31 [facility] Comment on above: Performed By: #### L 501.2300 #### [facility] [address] [place], [address] Bilirubin [Mass/Vol] 0.19 mg/dL Normal 0.00-1.30 [facility] Comment on above: Performed By: #### L 501.2300 #### [facility] [address] [place], [address] BUN/CRE 24.2 RATIO High 10-20 [facility] Comment on above: Performed By: #### L 501.2300 #### [facility] [address] [place], [address] Calcium [Mass/Vol] 9.5 mg/dL Normal 7.6-11.0 [facility] Comment on above: Performed By: #### L 501.2300 #### [facility] [address] [place], [address] Chloride [Moles/Vol] 106 mmol/L Normal 98-108 [facility] Comment on above: Performed By: #### L 501.2300 #### [facility] [address] [place], [address] CO2 [Moles/Vol] 22.5 mmol/L Normal 21.0-32.0 [facility] Comment on above: Performed By: #### L 501.2300 #### [facility] [address] [place], [address] Creatinine [Mass/Vol] 0.83 mg/dL Normal 0.70-1.20 [facility] Comment on above: Performed By: #### L 501.2300 #### [facility] [address] [place], [address] ECRCL 77.83 ml/min Normal 50-250 [facility] Comment on above: Performed By: #### L 501.2300 #### [facility] [address] [place], [address] GAP 11 Normal 5-15 [facility] Comment on above: Performed By: #### L 501.2300 #### [facility] [address] [place], [address] GFR/1.73 sq M.predicted among non-blacks MDRD (S/P/Bld) [Vol rate/Area] 89 mL/min/{1.73_m2} Normal >60 [facility] Comment on above: Result Comment: mL/m in/1.73m2 CKD-EPI Creatinine Equation (2020) Performed By: #### L 501.2300 #### [facility] [address] [place], [address] Globulin (S) [Mass/Vol] 2.9 g/dL Normal 2.2-4.2 [facility] Comment on above: Performed By: #### L 501.2300 #### [facility] [address] [place], [address] Glucose [Mass/Vol] 76 mg/dL Normal 70-99 [facility] Comment on above: Performed By: #### L 501.2300 #### [facility] [address] [place], [address] Potassium [Moles/Vol] 4.0 mmol/L Normal 3.3-5.1 [facility] Comment on above: Performed By: #### L 501.2300 #### [facility] [address] [place], [address] Sodium [Moles/Vol] 139 mmol/L Normal 133-145 [facility] Comment on above: Performed By: #### L 501.2300 #### [facility] [address] [place], [place], [id number] T PROT 6.9 g/dL Normal 5.9-8.4 [facility] Comment on above: Performed By: #### L 501.2300 #### [facility] [address] [place], [place], [address] Urea nitrogen [Mass/Vol] 20 mg/dL High 4-19 [facility] Comment on above: Performed By: #### L 501.2300 #### [facility] [address] [place], [place], [address] Eosinophil percentageOrdered By: Arnaud Borja on 04-02-2025 Eosinophils/100 WBC (Bld) 0.2 % 0-5 [facility] Erythrocyte distribution wid th ratioOrdered By: [facility] on 04-02-2025 Erythrocyte distribution width (RBC) [Ratio] 13.2 % 11.6-14.6 [facility] Erythrocyte distribution wid th standard deviationOrdered By: [facility] Bor[facility] on 04-02-2025 Erythrocyte distribution width (RBC) [Ratio] 39.0 fl 35.1-43.9 [facility] Glomerular filtration rate ( GFR) estimation/1.73 sq m using serum, plasma, or whole bOrdered By: Arnaud Borja on 04-02-2025 GFR/1.73 sq M.predicted among non-blacks MDRD (S/P/Bld) [Vol rate/Area] 89 mL/min/{1.73_m2} >60 [facility] Comment on above: mL/min/1.73m2 CKD-EP I Creatinine Equation (2020) Hematocrit Auto (Bld) [Volum e fraction]Ordered By: Arnaud Borja on 04-02-2025 Hematocrit (Bld) [Volume fraction] 24.0 % Low 37-47 [facility] Hemoglobin measurementOrdere d By: Arnaud Borja on 04-02-2025 Hemoglobin (Bld) [Mass/Vol] 8.1 g/dL Low 12.0-15.0 [facility] Immature granulocytes/100 WB C Auto (Bld)Ordered By: Arnaud Borja on 04-02-2025 Immature granulocytes/100 WBC (Bld) 0.200 % 0.0-0.9 [facility] Comment on above: IG% - Immature Granu locytes (promyelocytes, myelocytes and metamyelocytes) > 1% indicates that a LEFT SHIFT is Present. Iron measurement (mass/mass) Ordered By: Arnaud Borja on 04-02-2025 Iron (Unsp spec) [Mass/Mass] 48 ug/dL Low 50-170 [facility] Iron+Iron Binding Capacityon 04-02-2025 Iron [Mass/Vol] 48 ug/dL Low 50-170 [facility] Comment on above: Performed By: #### L 501.2300, L503.6030 ####[facility] [address] [place], [address] IRON SATURATION 17.0 Normal 13-59 [facility] Comment on above: Performed By: #### L 501.2300, L503.6030 ####[facility] [address] [facility] [address] TIBC 277 ug/dL Normal 250-450 [facility] Comment on above: Performed By: #### L 501.2300, L503.6030 ####[facility] [address] [facility] [address] UIBC 229 ug/dL Normal 228-428 [facility] Comment on above: Performed By: #### L 501.2300, L503.6030 ####[facility] [address] [facility] [address] Laboratory - Chemistry and C hemistry - challengeOrdered By: Arnaud Borja on 04-02-2025 AST [Catalytic activity/Vol] 49 U/L High <32 [facility] MCV (mean corpuscular volume ) determinationOrdered By: Arnaud Borja on 04-02-2025 MCV (RBC) [Entitic vol] 85.7 fL 81-99 [facility] Magnesiumon 04-02-2025 Magnesium [Mass/Vol] 1.9 mg/dL Normal 1.5-2.2 [facility] Comment on above: Performed By: #### L 501.2300 #### [facility] Laboratory [address] [place], [place], [id number] Magnesium measurement (mass/ volume)Ordered By: Arnaud Borja on 04-02-2025 Magnesium (Unsp spec) [Mass/Vol] 1.9 mg/dL 1.5-2.2 [facility] Mean corpuscular hemoglobin (MCH) determinationOrdered By: [facility] Huong on 04-02-2025 MCH (RBC) [Entitic mass] 28.9 pg 27.0-32.0 [facility] Mean corpuscular hemoglobin concentration (MCHC) determinationOrdered By: [facility] Huong on 04-02-2025 MCHC (RBC) [Mass/Vol] 33.8 g/dL 32-36 [facility] Mean platelet volume determi nationOrdered By: [facility] on 04-02-2025 Platelet mean volume (Bld) [Entitic vol] 9.8 fL 6.2-12.0 [facility] Monocyte percentageOrdered B y: [facility] Huong on 04-02-2025 Monocytes/100 WBC (Bld) 9.2 % 0-10 [facility] Neutrophil percentageOrdered By: [facility] Huong on 04-02-2025 Neutrophils/100 WBC (Bld) 61.4 % 47-70 [facility] No Panel InformationOrdered By: [facility] on 04-02-2025 Unsaturated Iron Binding Capacity 229 ug/dL 228-428 [facility] Nucleated red blood cell per centageOrdered By: [facility] Huong on 04-02-2025 Nucleated RBC/100 WBC (Bld) [Ratio] 0 % 0-5 [facility] Oncology Visit Reporton Oncology Visit Report [facility] [place] [facility] [address] [place], [place] [address] OFFICE VISIT Date of Service: 04/02/25 0946 MR#: [id number] Acct: [id number] Name: HOWARD HALL Rep #: [id number] [birth year] : 1980 From: Arnaud Borja MD Age/Sex: 44/F Location: [facility] Status: Signed HPI Subjective Date of [...] in 100% of tumor cells PROGESTERONE RECEPTOR (NC): Positive, strong immunoreactivity in 100% of tumor [...] = -16.7% (normal). Treatment summary and response: [facility] February 13, 2025 Interval History February 2025 on antibiotics for an infected tooth, right lower jaw improving with less swelling and (more content not included)... Normal [facility] Phosphoruson 04-02-2025 Phosphate [Mass/Vol] 3.6 mg/dL Normal 2.7-4.5 [facility] Comment on above: Performed By: #### L 501.2300, L503.6030 ####[facility] [address] [place], [address] Phosphate [Mass/Vol] 3.5 mg/dL Normal 2.7-4.5 [facility] Comment on above: Performed By: #### L 501.2300 #### [facility] Laboratory [address] [place], [address] Platelet countOrdered By: Jluis Borja on 04-02-2025 Platelets (Bld) [#/Vol] 243 10*3/uL 150-450 [facility] Potassium measurement (mass/ volume)Ordered By: Arnaud Borja on 04-02-2025 Potassium (Unsp spec) [Mass/Vol] 4.0 mmol/L 3.3-5.1 [facility] RBC Auto (Bld) [#/Vol]Ordere d By: Arnaud Borja on 04-02-2025 RBC (Bld) [#/Vol] 2.80 10*6/uL Low 4.2-5.4 [facility] Serum creatinine measurement (mass/volume)Ordered By: Arnaud Borja on 04-02-2025 Creatinine [Mass/Vol] 0.83 mg/dL 0.70-1.20 [facility] Serum globulin measurementOr dered By: Arnaud Borja on 04-02-2025 Globulin (S) [Mass/Vol] 2.9 g/dL 2.2-4.2 [facility] Serum glucose measurement (m ass/volume)Ordered By: Arnaud Borja on 04-02-2025 Glucose [Mass/Vol] 76 mg/dL 70-99 [facility] Serum or plasma alanine rainey otransferase (ALT) measurementOrdered By: Arnaud Borja on 04-02-2025 ALT [Catalytic activity/Vol] 60 U/L High <35 [facility] Serum or plasma albumin ceasar urement (mass/volume)Ordered By: Arnaud Borja on 04-02-2025 Albumin [Mass/Vol] 4.1 g/dL 3.5-5.0 [facility] Serum or plasma albumin/glob ulin mass ratioOrdered By: Arnaud Borja on 04-02-2025 Albumin/Globulin [Mass ratio] 1.4 {ratio} 0.9-2.4 [facility] Serum or plasma alkaline dasia sphatase measurementOrdered By: Arnaud Borja on 04-02-2025 ALP [Catalytic activity/Vol] 97 U/L 35-104 [facility] Serum or plasma calcium ceasar urement (mass/volume)Ordered By: Arnaud Borja on 04-02-2025 Calcium [Mass/Vol] 9.5 mg/dL 7.6-11.0 [facility] Serum or plasma iron saturat ion measurement (mass fraction)Ordered By: Arnaud Borja on 04-02-2025 Iron saturation [Mass fraction] 17.0 % 13-59 [facility] Serum or plasma urea nitroge n measurement (mass/volume)Ordered By: Arnaud Borja on 04-02-2025 Urea nitrogen [Mass/Vol] 20 mg/dL High 4-19 [facility] Sodium levelOrdered By: Meir Borja on 04-02-2025 Sodium [Moles/Vol] 139 mmol/L 133-145 [facility] Total proteinOrdered By: Charanjit Borja on 04-02-2025 Protein [Mass/Vol] 6.9 g/dL 5.9-8.4 [facility] White blood cell (WBC) count Ordered By: Arnaud Borja on 04-02-2025 WBC (Bld) [#/Vol] 5.6 10*3/uL 4.4-11.0 [facility] Absolute lymphocyte countOrd ered By: Arnaud Borja on 03-12-2025 Lymphocytes Auto (Unsp spec) [#/Vol] 1.91 10*3/uL 0.83-4.51 [facility] Absolute neutrophil countOrd ered By: Aranud Borja on 03-12-2025 Neutrophils (Bld) [#/Vol] 3.3 10*3/uL 2.0-7.7 [facility] Anion gap in Serum or Plasma Ordered By: Arnaud Borja on 03-12-2025 Anion gap [Moles/Vol] 12 mmol/L 5- [facility] Automated lymphocyte count a s percentage of total leukocytesOrdered By: [facility] on 03-12-2025 Lymphocytes/100 WBC Auto (Unsp spec) 32.2 % - [facility] BUN/creatinine ratioOrdered By: [facility] on 03-12-2025 Urea nitrogen/Creatinine [Mass ratio] 17.5 mg/mg 10- [facility] Basophil percentageOrdered B y: Arnaud Borja on 03-12-2025 Basophils/100 WBC (Bld) 1.0 % 0-1 [facility] Bilirubin, totalOrdered By: [facility] on 03-12-2025 Bilirubin [Mass/Vol] 0.16 mg/dL 0.00-1.30 [facility] CBC W/Diff, Automatedon 02-28 Absolute Lymph 1.91 X10 3/uL Normal 0.83-4.51 [facility] Comment on above: Performed By: #### L 500.4050, L100.0100 #### [facility] Laboratory [address] [facility] [place], [address] Absolute Neut 3.3 X10 3/uL Normal 2.0-7.7 [facility] Comment on above: Performed By: #### L 500.4050, L100.0100 #### [facility] Laboratory [address] [place], [address] Basophils/100 WBC (Bld) 1.0 % Normal 0-1 [facility] Comment on above: Performed By: #### L 500.4050, L100.0100 #### [facility] Laboratory [address] [place], [address] Eosinophils/100 WBC (Bld) 2.0 % Normal 0-5 [facility] Comment on above: Performed By: #### L 500.4050, L100.0100 #### [facility] [address] [place], [address] Erythrocyte distribution width (RBC) [Ratio] 13.2 % Normal 11.6-14.6 [facility] Comment on above: Performed By: #### L 500.4050, L100.0100 #### [facility] [address] [place], [address] Hematocrit (Bld) [Volume fraction] 30.2 % Low 37-47 [facility] Comment on above: Performed By: #### L 500.4050, L100.0100 #### [facility] [address] [place], [address] Hemoglobin (Bld) [Mass/Vol] 10.1 g/dL Low 12.0-15.0 [facility] Comment on above: Performed By: #### L 500.4050, L100.0100 #### [facility] [address] [place], [address] IG% 0.200 Normal 0.0-0.9 [facility] Comment on above: Result Comment: IG% - Immature Granulocytes (promyelocytes, myelocytes and metamyelocytes) > 1% indicates that a LEFT SHIFT is Present. Performed By: #### L 500.4050, L100.0100 #### [facility] [address] [place], [address] Lymphocytes/100 WBC (Bld) 32.2 % Normal 19-41 [facility] Comment on above: Performed By: #### L 500.4050, L100.0100 #### [facility] [address] [place], [address] MCH (RBC) [Entitic mass] 29.2 pg Normal 27.0-32.0 [facility] Comment on above: Performed By: #### L 500.4050, L100.0100 #### [facility] [address] [place], [address] MCHC (RBC) [Mass/Vol] 33.4 g/dL Normal 32-36 [facility] Comment on above: Performed By: #### L 500.4050, L100.0100 #### [facility] [address] [place], [address] MCV (RBC) [Entitic vol] 87.3 fL Normal 81-99 [facility] Comment on above: Performed By: #### L 500.4050, L100.0100 #### [facility] [address] [place], [address] Monocytes/100 WBC (Bld) 9.8 % Normal 0-10 [facility] Comment on above: Performed By: #### L 500.4050, L100.0100 #### [facility] [address] [place], [address] Neutrophils/100 WBC (Bld) 54.8 % Normal 47-70 [facility] Comment on above: Performed By: #### L 500.4050, L100.0100 #### [facility] [address] [place], [address] Nucleated RBC (Bld) [#/Vol] 0 10*3/uL Normal 0-5 [facility] Comment on above: Performed By: #### L 500.4050, L100.0100 #### [facility] [address] [place], [address] Platelet mean volume (Bld) [Entitic vol] 10.0 fL Normal 6.2-12.0 [facility] Comment on above: Performed By: #### L 500.4050, L100.0100 #### [facility] [address] [place], [address] Platelets (Bld) [#/Vol] 388 10*3/uL Normal 150-450 [facility] Comment on above: Performed By: #### L 500.4050, L100.0100 #### [facility] [address] [place], [address] RBC (Bld) [#/Vol] 3.46 10*6/uL Low 4.2-5.4 [facility] Comment on above: Performed By: #### L 500.4050, L100.0100 #### [facility] [address] [place], [address] RDW SD 41.3 fl Normal 35.1-43.9 [facility] Comment on above: Performed By: #### L 500.4050, L100.0100 #### [facility] [address] [place], [address] WBC (Bld) [#/Vol] 5.9 10*3/uL Normal 4.4-11.0 [facility] Comment on above: Performed By: #### L 500.4050, L100.0100 #### [facility] [address] [place], [address] Carbon dioxide, total [Moles /volume] in Central venous bloodOrdered By: Arnaud Borja on 03-12-2025 CO2 [Moles/Vol] 22.8 mmol/L 21.0-32.0 [facility] Chloride assayOrdered By: Jluis Borja on 03-12-2025 Chloride [Moles/Vol] 106 mmol/L 98-108 [facility] Comprehensive Metabolic Prof ilon 03-12-2025 Albumin [Mass/Vol] 4.1 g/dL Normal 3.5-5.0 [facility] Comment on above: Performed By: #### L 501.2300 #### [facility] [address] [place], [address] Albumin/Globulin [Mass ratio] 1.5 {ratio} Normal 0.9-2.4 [facility] Comment on above: Performed By: #### L 501.2300 #### [facility] [address] [place], [address] ALK PHOS 101 U/L Normal 35-104 [facility] Comment on above: Performed By: #### L 501.2300 #### [facility] [address] [place], [address] ALT [Catalytic activity/Vol] 27 U/L Normal <=34 [facility] Comment on above: Performed By: #### L 501.2300 #### [facility] [address] [place], [address] AST [Catalytic activity/Vol] 27 U/L Normal <=31 [facility] Comment on above: Performed By: #### L 501.2300 #### [facility] [address] [place], [address] Bilirubin [Mass/Vol] 0.16 mg/dL Normal 0.00-1.30 [facility] Comment on above: Performed By: #### L 501.2300 #### [facility] [address] [place], [address] BUN/CRE 17.5 RATIO Normal 10-20 [facility] Comment on above: Performed By: #### L 501.2300 #### [facility] [address] [place], [address] Calcium [Mass/Vol] 9.5 mg/dL Normal 7.6-11.0 [facility] Comment on above: Performed By: #### L 501.2300 #### [facility] [address] [place], [address] Chloride [Moles/Vol] 106 mmol/L Normal 98-108 [facility] Comment on above: Performed By: #### L 501.2300 #### [facility] [address] [place], [address] CO2 [Moles/Vol] 22.8 mmol/L Normal 21.0-32.0 [facility] Comment on above: Performed By: #### L 501.2300 #### [facility] [address] [place], [address] Creatinine [Mass/Vol] 0.86 mg/dL Normal 0.70-1.20 [facility] Comment on above: Performed By: #### L 501.2300 #### [facility] [address] [place], [address] ECRCL 75.12 ml/min Normal 50-250 [facility] Comment on above: Performed By: #### L 501.2300 #### [facility] [address] [place], [address] GAP 12 Normal 5-15 [facility] Comment on above: Performed By: #### L 501.2300 #### [facility] [address] [place], [address] GFR/1.73 sq M.predicted among non-blacks MDRD (S/P/Bld) [Vol rate/Area] 85 mL/min/{1.73_m2} Normal >60 [facility] Comment on above: Result Comment: mL/m in/1.73m2 CKD-EPI Creatinine Equation (2020) Performed By: #### L 501.2300 #### [facility] [address] [place], [address] Globulin (S) [Mass/Vol] 2.8 g/dL Normal 2.2-4.2 [facility] Comment on above: Performed By: #### L 501.2300 #### [facility] [address] [place], [address] Glucose [Mass/Vol] 101 mg/dL High 70-99 [facility] Comment on above: Performed By: #### L 501.2300 #### [facility] [address] [place], [address] Potassium [Moles/Vol] 3.5 mmol/L Normal 3.3-5.1 [facility] Comment on above: Performed By: #### L 501.2300 #### [facility] [address] [place], [address] Sodium [Moles/Vol] 140 mmol/L Normal 133-145 [facility] Comment on above: Performed By: #### L 501.2300 #### [facility] [address] [place], [address] T PROT 6.9 g/dL Normal 5.9-8.4 [facility] Comment on above: Performed By: #### L 501.2300 #### [facility] [address] [place], [address] Urea nitrogen [Mass/Vol] 15 mg/dL Normal 4-19 [facility] Comment on above: Performed By: #### L 501.2300 #### [facility] [address] [place], [address] Eosinophil percentageOrdered By: Arnaud Borja on 03-12-2025 Eosinophils/100 WBC (Bld) 2.0 % 0-5 [facility] Erythrocyte distribution wid th ratioOrdered By: Arnaud Borja on 03-12-2025 Erythrocyte distribution width (RBC) [Ratio] 13.2 % 11.6-14.6 [facility] Erythrocyte distribution wid th standard deviationOrdered By: Arnaud Borja on 03-12-2025 Erythrocyte distribution width (RBC) [Ratio] 41.3 fl 35.1-43.9 [facility] Glomerular filtration rate ( GFR) estimation/1.73 sq m using serum, plasma, or whole bOrdered By: Arnaud Borja on 03-12-2025 GFR/1.73 sq M.predicted among non-blacks MDRD (S/P/Bld) [Vol rate/Area] 85 mL/min/{1.73_m2} >60 [facility] Comment on above: mL/min/1.73m2 CKD-EP I Creatinine Equation (2020) Hematocrit Auto (Bld) [Volum e fraction]Ordered By: Arnaud Borja on 03-12-2025 Hematocrit (Bld) [Volume fraction] 30.2 % Low 37-47 [facility] Hemoglobin measurementOrdere d By: Arnaud Borja on 03-12-2025 Hemoglobin (Bld) [Mass/Vol] 10.1 g/dL Low 12.0-15.0 [facility] Immature granulocytes/100 WB C Auto (Bld)Ordered By: Arnaud Borja on 03-12-2025 Immature granulocytes/100 WBC (Bld) 0.200 % 0.0-0.9 [facility] Comment on above: IG% - Immature Granu locytes (promyelocytes, myelocytes and metamyelocytes) > 1% indicates that a LEFT SHIFT is Present. Laboratory - Chemistry and C hemistry - challengeOrdered By: Arnaud Borja on 03-12-2025 AST [Catalytic activity/Vol] 27 U/L <32 [facility] MCV (mean corpuscular volume ) determinationOrdered By: Arnaud Borja on 03-12-2025 MCV (RBC) [Entitic vol] 87.3 fL 81-99 [facility] Magnesiumon 03-12-2025 Magnesium [Mass/Vol] 2.2 mg/dL Normal 1.5-2.2 [facility] Comment on above: Performed By: #### L 501.2300 #### [facility] [address] [place], [address] Magnesium measurement (mass/ volume)Ordered By: Arnaud Borja on 03-12-2025 Magnesium (Unsp spec) [Mass/Vol] 2.2 mg/dL 1.5-2.2 [facility] Mean corpuscular hemoglobin (MCH) determinationOrdered By: Arnaud Borja on 03-12-2025 MCH (RBC) [Entitic mass] 29.2 pg 27.0-32.0 [facility] Mean corpuscular hemoglobin concentration (MCHC) determinationOrdered By: Arnaud Borja on 03-12-2025 MCHC (RBC) [Mass/Vol] 33.4 g/dL 32-36 [facility] Mean platelet volume determi nationOrdered By: Arnaud Borja on 03-12-2025 Platelet mean volume (Bld) [Entitic vol] 10.0 fL 6.2-12.0 [facility] Monocyte percentageOrdered B y: Arnaud Borja on 03-12-2025 Monocytes/100 WBC (Bld) 9.8 % 0-10 [facility] Neutrophil percentageOrdered By: Arnaud Borja on 03-12-2025 Neutrophils/100 WBC (Bld) 54.8 % 47-70 [facility] Nucleated red blood cell per centageOrdered By: Arnaud Borja on 03-12-2025 Nucleated RBC/100 WBC (Bld) [Ratio] 0 % 0-5 [facility] Oncology Visit Reporton 02-28 Oncology Visit Report [facility] [place] [facility] [address] [place], [place] [address] [address] OFFICE VISIT Date of Service: 03/12/25 0846 MR#: [id number] Acct: [id number] Name: VICKEYHOWARD Rep #: [id number] : 1980 From: Arnaud Borja MD Age/Sex: 44/F Location: [facility] Status: Signed HPI Subjective Date of Service 03/12/25 Chief Complaint Breast cancer on treatment- start [facility] History of Present Illness 44-year-old female menopausal [...] in 100% of tumor cells PROGESTERONE RECEPTOR ([place]): Positive, strong immunoreactivity in 100% of tumor [...] = -16.7% (normal). Treatment summary and response: [facility] February 13, 2025 [facility] Medical History Diarrhea due to drug UTI (uri (more content not included)... Normal [facility] Platelet countOrdered By: Jluis Borja on 03-12-2025 Platelets (Bld) [#/Vol] 388 10*3/uL 150-450 [facility] Potassium measurement (mass/ volume)Ordered By: Arnaud Borja on 03-12-2025 Potassium (Unsp spec) [Mass/Vol] 3.5 mmol/L 3.3-5.1 [facility] RBC Auto (Bld) [#/Vol]Ordere d By: Arnaud Borja on 03-12-2025 RBC (Bld) [#/Vol] 3.46 10*6/uL Low 4.2-5.4 [facility] Serum creatinine measurement (mass/volume)Ordered By: Arnaud Borja on 03-12-2025 Creatinine [Mass/Vol] 0.86 mg/dL 0.70-1.20 [facility] Serum globulin measurementOr dered By: Arnaud Borja on 03-12-2025 Globulin (S) [Mass/Vol] 2.8 g/dL 2.2-4.2 [facility] Serum glucose measurement (m ass/volume)Ordered By: Arnaud Borja on 03-12-2025 Glucose [Mass/Vol] 101 mg/dL High 70-99 [facility] Serum or plasma alanine rainey otransferase (ALT) measurementOrdered By: Arnaud Borja on 03-12-2025 ALT [Catalytic activity/Vol] 27 U/L <35 [facility] Serum or plasma albumin ceasar urement (mass/volume)Ordered By: Arnaud Borja on 03-12-2025 Albumin [Mass/Vol] 4.1 g/dL 3.5-5.0 [facility] Serum or plasma albumin/glob ulin mass ratioOrdered By: Arnaud Borja on 03-12-2025 Albumin/Globulin [Mass ratio] 1.5 {ratio} 0.9-2.4 [facility] Serum or plasma alkaline dasia sphatase measurementOrdered By: Arnaud Borja on 03-12-2025 ALP [Catalytic activity/Vol] 101 U/L 35-104 [facility] Serum or plasma calcium ceasar urement (mass/volume)Ordered By: Arnaud Borja on 03-12-2025 Calcium [Mass/Vol] 9.5 mg/dL 7.6-11.0 [facility] Serum or plasma urea nitroge n measurement (mass/volume)Ordered By: Arnaud Borja on 03-12-2025 Urea nitrogen [Mass/Vol] 15 mg/dL 4-19 [facility] Sodium levelOrdered By: Meir Borja on 03-12-2025 Sodium [Moles/Vol] 140 mmol/L 133-145 [facility] Total proteinOrdered By: Charanjit Borja on 03-12-2025 Protein [Mass/Vol] 6.9 g/dL 5.9-8.4 [facility] White blood cell (WBC) count Ordered By: Arnaud Borja on 03-12-2025 WBC (Bld) [#/Vol] 5.9 10*3/uL 4.4-11.0 [facility] CBC W/Diff, Automatedon 08-0 -2024 Absolute Neut Normal 2.0-7.7 [facility] Comment on above: Result Comment: OM C ANCEL REQUEST Performed By: #### L 500.4050, L100.0100 #### [facility] [address] [place], [address] HCT Normal 37-47 [facility] Comment on above: Result Comment: OM C ANCEL REQUEST Performed By: #### L 500.4050, L100.0100 #### [facility] [address] [place], [address] HGB Normal 12.0-15.0 [facility] Comment on above: Result Comment: OM C ANCEL REQUEST Performed By: #### L 500.4050, L100.0100 #### [facility] [address] [place], [address] MCH Normal 27.0-32.0 [facility] Comment on above: Result Comment: OM C ANCEL REQUEST Performed By: #### L 500.4050, L100.0100 #### [facility] [address] [place], [address] MCHC Normal 32-36 [facility] Comment on above: Result Comment: OM C ANCEL REQUEST Performed By: #### L 500.4050, L100.0100 #### [facility] [address] [place], [address] MCV Normal 81-99 [facility] Comment on above: Result Comment: OM C ANCEL REQUEST Performed By: #### L 500.4050, L100.0100 #### [facility] [address] [place], [address] NEUT% Normal 47-70 [facility] Comment on above: Result Comment: OM C ANCEL REQUEST Performed By: #### L 500.4050, L100.0100 #### [facility] [address] [place], [address] PLT Normal 150-450 [facility] Comment on above: Result Comment: OM C ANCEL REQUEST Performed By: #### L 500.4050, L100.0100 #### [facility] [address] [place], [address] RBC Normal 4.2-5.4 [facility] Comment on above: Result Comment: OM C ANCEL REQUEST Performed By: #### L 500.4050, L100.0100 #### [facility] [address] [place], [address] RDW CV Normal 11.6-14.6 [facility] Comment on above: Result Comment: OM C ANCEL REQUEST Performed By: #### L 500.4050, L100.0100 #### [facility] [address] [place], [address] RDW SD Normal 35.1-43.9 [facility] Comment on above: Result Comment: OM C ANCEL REQUEST Performed By: #### L 500.4050, L100.0100 #### [facility] [address] [place], [address] WBC Normal 4.4-11.0 [facility] Comment on above: Result Comment: OM C ANCEL REQUEST Performed By: #### L 500.4050, L100.0100 #### [facility] [address] [place], [address] Comprehensive Metabolic Prof ilon 03-06-2025 ALB Normal 3.5-5.0 [facility] Comment on above: Result Comment: OM C ANCEL REQUEST Performed By: #### L 500.4050, L100.0100 #### [facility] [address] [place], [address] ALK PHOS Normal 35-104 [facility] Comment on above: Result Comment: OM C ANCEL REQUEST Performed By: #### L 500.4050, L100.0100 #### [facility] [address] [place], [address] ALT Normal <=34 [facility] Comment on above: Result Comment: OM C ANCEL REQUEST Performed By: #### L 500.4050, L100.0100 #### [facility] [address] [place], [address] AST Normal <=31 [facility] Comment on above: Result Comment: OM C ANCEL REQUEST Performed By: #### L 500.4050, L100.0100 #### [facility] [address] [place], [address] BUN Normal 4-19 [facility] Comment on above: Result Comment: OM C ANCEL REQUEST Performed By: #### L 500.4050, L100.0100 #### [facility] [address] [place], [address] BUN/CRE Normal 10-20 [facility] Comment on above: Result Comment: OM C ANCEL REQUEST Performed By: #### L 500.4050, L100.0100 #### [facility] [address] [place], [address] Calcium Normal 7.6-11.0 [facility] Comment on above: Result Comment: OM C ANCEL REQUEST Performed By: #### L 500.4050, L100.0100 #### [facility] [address] [place], [address] CL Normal 98-108 [facility] Comment on above: Result Comment: OM C ANCEL REQUEST Performed By: #### L 500.4050, L100.0100 #### [facility] [address] [place], [address] CO2 Normal 21.0-32.0 [facility] Comment on above: Result Comment: OM C ANCEL REQUEST Performed By: #### L 500.4050, L100.0100 #### [facility] [address] [place], [address] CREAT,SERUM Normal 0.70-1.20 [facility] Comment on above: Result Comment: OM C ANCEL REQUEST Performed By: #### L 500.4050, L100.0100 #### [facility] [address] [place], [address] eGFR Normal >60 [facility] Comment on above: Result Comment: OM C ANCEL REQUEST Performed By: #### L 500.4050, L100.0100 #### [facility] [address] [place], [address] GAP Normal 5-15 [facility] Comment on above: Result Comment: OM C ANCEL REQUEST Performed By: #### L 500.4050, L100.0100 #### [facility] [address] [place], [address] GLU Normal 70-99 [facility] Comment on above: Result Comment: OM C ANCEL REQUEST Performed By: #### L 500.4050, L100.0100 #### [facility] [address] [place], [address] Potassium Normal 3.3-5.1 [facility] Comment on above: Result Comment: OM C ANCEL REQUEST Performed By: #### L 500.4050, L100.0100 #### [facility] [address] [place], [address] T BILI Normal 0.00-1.30 [facility] Comment on above: Result Comment: OM C ANCEL REQUEST Performed By: #### L 500.4050, L100.0100 #### [facility] [address] [place], [address] T PROT Normal 5.9-8.4 [facility] Comment on above: Result Comment: OM C ANCEL REQUEST Performed By: #### L 500.4050, L100.0100 #### [facility] [address] [place], [address] Comprehensive Metabolic Profil Normal 133-145 [facility] Comment on above: Result Comment: OM C ANCEL REQUEST Performed By: #### L 500.4050, L100.0100 #### [facility] [address] [place], [address] Absolute lymphocyte countOrd ered By: Arnaud Borja on 02-20-2025 Lymphocytes Auto (Unsp spec) [#/Vol] 1.96 10*3/uL 0.83-4.51 [facility] Absolute neutrophil countOrd ered By: Arnaud Borja on 02-20-2025 Neutrophils (Bld) [#/Vol] 3.0 10*3/uL 2.0-7.7 [facility] Anion gap in Serum or Plasma Ordered By: Arnaud Borja on 02-20-2025 Anion gap [Moles/Vol] 13 mmol/L 5- [facility] Automated lymphocyte count a s percentage of total leukocytesOrdered By: Arnaud Borja on 02-20-2025 Lymphocytes/100 WBC Auto (Unsp spec) 31.2 % 19-41 [facility] BUN/creatinine ratioOrdered By: Arnaud Borja on 02-20-2025 Urea nitrogen/Creatinine [Mass ratio] 15.4 mg/mg 10- [facility] Basic Metabolic Profile (BMP )on 02-20-2025 BUN/CRE 15.4 RATIO Normal - [facility] Comment on above: Performed By: #### L 500.2500, L501.5200, L100.0100 #### [facility] [address] [place], [address] ECRCL 81.77 ml/min Normal 50-250 [facility] Comment on above: Performed By: #### L 500.2500, L501.5200, L100.0100 #### [facility] [address] [place], [address] GAP 13 Normal 5-15 [facility] Comment on above: Performed By: #### L 500.2500, L501.5200, L100.0100 #### [facility] [address] [place], [place], [id number] Potassium [Moles/Vol] 3.6 mmol/L Normal 3.3-5.1 [facility] Comment on above: Performed By: #### L 500.2500, L501.5200, L100.0100 #### [facility] [address] [place], [address] Basophil percentageOrdered B y: Arnaud Borja on 02-20-2025 Basophils/100 WBC (Bld) 0.3 % 0-1 [facility] Bilirubin Test strip Ql (U)O rdered By: Kelsey Holland on 02-20-2025 Bilirubin Ql (U) 1 mg/dL High Negative [facility] Comment on above: COLOR OF URINE MAY A FFECT DIPSTICK RESULTS. Blood manual differential co mment interpretation (narrative result)Ordered By: Arnaud Borja on 02-20-2025 Manual differential comment Miguel Angel (Bld) [Interp] SCANNED [facility] CBC W/Diff, Automatedon 01-29 PLT EST SLT DEC Normal ADEQ [facility] Comment on above: Performed By: #### L 500.2500, L501.5200, L100.0100 #### [facility] [address] [place], [address] Platelet mean volume (Bld) [Entitic vol] 11.4 fL Normal 6.2-12.0 [facility] Comment on above: Performed By: #### L 500.2500, L501.5200, L100.0100 #### [facility] [address] [place], [address] SMEAR COMMENT SCANNED Normal [facility] Comment on above: Performed By: #### L 500.2500, L501.5200, L100.0100 #### [facility] [address] [place], [address] Platelets (Bld) [#/Vol] 141 10*3/uL Low 150-450 [facility] Comment on above: Performed By: #### L 500.2500, L501.5200, L100.0100 #### [facility] [address] [place], [address] WBC (Bld) [#/Vol] 6.3 10*3/uL Normal 4.4-11.0 [facility] Comment on above: Performed By: #### L 500.2500, L501.5200, L100.0100 #### [facility] [address] [place], [address] Carbon dioxide, total [Moles /volume] in Central venous bloodOrdered By: Arnaud Borja on 02-20-2025 CO2 [Moles/Vol] 22.9 mmol/L Normal 21.0-32.0 [facility] Comment on above: Performed By: #### L 500.2500, L501.5200, L100.0100 #### [facility] [address] [place], [address] Chloride assayOrdered By: Jluis Borja on 02-20-2025 Chloride [Moles/Vol] 100 mmol/L Normal 98-108 [facility] Comment on above: Performed By: #### L 500.2500, L501.5200, L100.0100 #### [facility] [address] [place], [address] Eosinophil percentageOrdered By: Arnaud Borja on 02-20-2025 Eosinophils/100 WBC (Bld) 0.3 % 0-5 [facility] Erythrocyte distribution wid th ratioOrdered By: Arnaud Borja on 02-20-2025 Erythrocyte distribution width (RBC) [Ratio] 11.9 % 11.6-14.6 [facility] Erythrocyte distribution wid th standard deviationOrdered By: Arnaud Borja on 02-20-2025 Erythrocyte distribution width (RBC) [Ratio] 36.2 fl 35.1-43.9 [facility] Glomerular filtration rate ( GFR) estimation/1.73 sq m using serum, plasma, or whole bOrdered By: Arnaud Borja on 02-20-2025 GFR/1.73 sq M.predicted among non-blacks MDRD (S/P/Bld) [Vol rate/Area] 95 mL/min/{1.73_m2} Normal >60 [facility] Comment on above: mL/min/1.73m2 CKD-EP I Creatinine Equation (2020) Result Comment: mL/m in/1.73m2 CKD-EPI Creatinine Equation (2020) Performed By: #### L 500.2500, L501.5200, L100.0100 #### [facility] [address], [id number] Hematocrit Auto (Bld) [Volum e fraction]Ordered By: Arnaud Borja on 02-20-2025 Hematocrit (Bld) [Volume fraction] 37.4 % 37-47 [facility] Hemoglobin measurementOrdere d By: Arnaud Borja on 02-20-2025 Hemoglobin (Bld) [Mass/Vol] 12.5 g/dL 12.0-15.0 [facility] Hyaline casts LM.LPF (Urine sed) [#/Area]Ordered By: Kelsey Holland on 02-20-2025 Hyaline casts (Urine sed) [#/Area] 0 /[LPF] 0-5 [facility] Immature granulocytes/100 WB C Auto (Bld)Ordered By: Arnaud Borja on 02-20-2025 Immature granulocytes/100 WBC (Bld) 1.400 % High 0.0-0.9 [facility] Comment on above: IG% - Immature Granu locytes (promyelocytes, myelocytes and metamyelocytes) > 1% indicates that a LEFT SHIFT is Present. Ketones Test strip Ql (U)Ord ered By: Kelsey Holland on 02-20-2025 Ketones Ql (U) Negative Negative [facility] MCV (mean corpuscular volume ) determinationOrdered By: Arnaud Borja on 02-20-2025 MCV (RBC) [Entitic vol] 84.2 fL 81-99 [facility] Magnesiumon 02-20-2025 Magnesium [Mass/Vol] 1.9 mg/dL Normal 1.5-2.2 [facility] Comment on above: Performed By: #### L 500.2500, L501.5200, L100.0100 #### [facility] [address] [place], [address] Magnesium measurement (mass/ volume)Ordered By: Arnaud Borja on 02-20-2025 Magnesium (Unsp spec) [Mass/Vol] 1.9 mg/dL 1.5-2.2 [facility] Mean corpuscular hemoglobin (MCH) determinationOrdered By: Arnaud Borja on 02-20-2025 MCH (RBC) [Entitic mass] 28.2 pg 27.0-32.0 [facility] Mean corpuscular hemoglobin concentration (MCHC) determinationOrdered By: Arnaud Broja on 02-20-2025 MCHC (RBC) [Mass/Vol] 33.4 g/dL 32-36 [facility] Microscopic analysis of urin e for red blood cells (RBC)Ordered By: Kelsey Holland on 02-20-2025 Microscopic analysis of urine for red blood cells (RBC) 0-5 SEEN /hpf 0-5 [facility] Monocyte percentageOrdered B y: Arnaud Borja on 02-20-2025 Monocytes/100 WBC (Bld) 18.8 % High 0-10 [facility] Mucus LM Ql (Urine sed)Order ed By: Kelsey Holland on 02-20-2025 Mucus Ql (Urine sed) 0 SEEN /hpf [facility] Neutrophil percentageOrdered By: Arnaud Borja on 02-20-2025 Neutrophils/100 WBC (Bld) 48.0 % 47-70 [facility] Nitrite Test strip Ql (U)Ord ered By: Kelsey Holland on 02-20-2025 Nitrite Ql (U) Positive High Negative [facility] Nucleated red blood cell per centageOrdered By: Arnaud Borja on 02-20-2025 Nucleated RBC/100 WBC (Bld) [Ratio] 0 % 0-5 [facility] Oncology Visit Reporton 01-29 Oncology Visit Report [facility] [address] [place] [address] OFFICE VISIT Date of Service: 02/20/25 1505 MR#: [id number] Acct: [id number] Name: HOWARD HALL Rep #: [id number] : 1980 From: Kelsey Holland NP 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 Normal [facility] Platelet estimateOrdered By: Arnaud Borja on 02-20-2025 Platelets LM Ql (Bld) SLT DEC ADEQ [facility] Potassium measurement (mass/ volume)Ordered By: Arnaud Borja on 02-20-2025 Potassium (Unsp spec) [Mass/Vol] 3.6 mmol/L 3.3-5.1 [facility] Protein Test strip Ql (U)Ord ered By: Kelsey Holland on 02-20-2025 Protein Ql (U) 30 mg/dl High Negative [facility] RBC Auto (Bld) [#/Vol]Ordere d By: Arnaud Borja on 02-20-2025 RBC (Bld) [#/Vol] 4.44 10*6/uL 4.2-5.4 [facility] Serum creatinine measurement (mass/volume)Ordered By: Arnaud Borja on 02-20-2025 Creatinine [Mass/Vol] 0.79 mg/dL Normal 0.70-1.20 [facility] Comment on above: Performed By: #### L 500.2500, L501.5200, L100.0100 #### [facility] [address] [place], [place], [id number] Serum glucose measurement (m ass/volume)Ordered By: Arnaud Borja on 02-20-2025 Glucose [Mass/Vol] 131 mg/dL High 70-99 [facility] Comment on above: Performed By: #### L 500.2500, L501.5200, L100.0100 #### [facility] [address] [place], [address] Serum or plasma calcium ceasar urement (mass/volume)Ordered By: Arnaud Huong on 02-20-2025 Calcium [Mass/Vol] 9.6 mg/dL Normal 7.6-11.0 [facility] Comment on above: Performed By: #### L 500.2500, L501.5200, L100.0100 #### [facility] [address] [place], [address] Serum or plasma urea nitroge n measurement (mass/volume)Ordered By: Meirwes Borja on 02-20-2025 Urea nitrogen [Mass/Vol] 12 mg/dL Normal 4-19 [facility] Comment on above: Performed By: #### L 500.2500, L501.5200, L100.0100 #### [facility] [address] [place], [address] Sodium levelOrdered By: Meir Crummusa on 02-20-2025 Sodium [Moles/Vol] 137 mmol/L Normal 133-145 [facility] Comment on above: Performed By: #### L 500.2500, L501.5200, L100.0100 #### [facility] [address] [place], [address] Squamous epithelial cells de tection in urine sediment by light microscopyOrdered By: Kelsey Holland on 02-20-2025 Epithelial cells.squamous LM Ql (Urine sed) 5-10 SEEN /hpf 5-10 [facility] Urinalysis, Completeon 02-20 CAST,HYALINE 0-5 SEEN Normal 0-5 [facility] Comment on above: Order Comment: COLLE CTOR TO SPECIFY Performed By: #### L 500.2500, L501.5200, L100.0100 #### [facility] [address] [place], [address] EPI,SQUAMOUS 5-10 SEEN Normal 5-10 [facility] Comment on above: Order Comment: BENNIE CTOR TO SPECIFY Performed By: #### L 500.2500, L501.5200, L100.0100 #### [facility] [address] [place], [address] RBC 0-5 SEEN Normal 0-5 [facility] Comment on above: Order Comment: COLLE CTOR TO SPECIFY Performed By: #### L 500.2500, L501.5200, L100.0100 #### [facility] [address] [place], [address] WBC 10-25 SEEN Normal 0-5 [facility] Comment on above: Order Comment: BENNIE CTOR TO SPECIFY Performed By: #### L 500.2500, L501.5200, L100.0100 #### [facility] [address] [place], [address] BACTERIA 3+ /hpf Normal None Seen [facility] Comment on above: Order Comment: BENNIE CTOR TO SPECIFY Performed By: #### L 500.2500, L501.5200, L100.0100 #### [facility] [address] [place], [address] Mucus Ql (Urine sed) 0 SEEN Normal [facility] Comment on above: Order Comment: BENNIE CTOR TO SPECIFY Performed By: #### L 500.2500, L501.5200, L100.0100 #### [facility] [address] [place], [address] Urine clarityOrdered By: Ad Holland on 02-20-2025 Clarity (U) Sl. Cloudy Clear [facility] Urine color determinationOrd ered By: Kelsey Holland on 02-20-2025 Color (U) Straw Yellow [facility] Urine glucose detectionOrder ed By: Kelsey Holland on 02-20-2025 Glucose Ql (U) Normal mg/dl Normal [facility] Urine leukocyte esterase det ection by dipstickOrdered By: Kelsey Holland on 02-20-2025 Leukocyte esterase Test strip Ql (U) 25 /ul High Negative [facility] Urine pHOrdered By: Kelsey vanegas on 02-20-2025 pH (U) 6.0 [pH] 5.0 - 8.0 [facility] Urine sediment bacteria coun t by microscopy (number/high power field)Ordered By: Kelsey Holland on 02-20-2025 Bacteria LM.HPF (Urine sed) [#/Area] 3 /[HPF] None Seen [facility] Urine specific gravity measu rementOrdered By: Kelsey Holland on 02-20-2025 Specific gravity (U) [Rel density] 1.015 1.002-1.030 [facility] Urine urobilinogen measureme ntOrdered By: Kelsey Holland on 02-20-2025 Urobilinogen Ql (U) Normal mg/dl Normal [facility] White blood cell countOrdere d By: Kelsey Holland on 02-20-2025 White blood cell count 10-25 SEEN /hpf 0-5 [facility] Absolute lymphocyte countOrd ered By: Arnaud Borja on 02-13-2025 Lymphocytes Auto (Unsp spec) [#/Vol] 0.98 10*3/uL 0.83-4.51 [facility] Absolute neutrophil countOrd ered By: Arnaud Borja on 02-13-2025 Neutrophils (Bld) [#/Vol] 4.4 10*3/uL 2.0-7.7 [facility] Anion gap in Serum or Plasma Ordered By: Arnaud Borja on 02-13-2025 Anion gap [Moles/Vol] 11 mmol/L 5-15 [facility] Automated lymphocyte count a s percentage of total leukocytesOrdered By: Arnaud Borja on 02-13-2025 Lymphocytes/100 WBC Auto (Unsp spec) 17.5 % Low 19-41 [facility] BUN/creatinine ratioOrdered By: Arnaud Borja on 02-13-2025 Urea nitrogen/Creatinine [Mass ratio] 16.1 mg/mg 10-20 [facility] Basophil percentageOrdered B y: Arnaud Borja on 02-13-2025 Basophils/100 WBC (Bld) 0.7 % 0-1 [facility] Bilirubin, totalOrdered By: Arnaud Borja on 02-13-2025 Bilirubin [Mass/Vol] 0.15 mg/dL 0.00-1.30 [facility] CBC W/Diff, Automatedon 01-28 Absolute Lymph 0.98 X10 3/uL Normal 0.83-4.51 [facility] Comment on above: Performed By: #### L 500.4050, L100.0100 #### [facility] [address] [place], [address] Absolute Neut 4.4 X10 3/uL Normal 2.0-7.7 [facility] Comment on above: Performed By: #### L 500.4050, L100.0100 #### [facility] [address] [place], [address] Basophils/100 WBC (Bld) 0.7 % Normal 0-1 [facility] Comment on above: Performed By: #### L 500.4050, L100.0100 #### [facility] [address] [place], [address] Eosinophils/100 WBC (Bld) 1.2 % Normal 0-5 [facility] Comment on above: Performed By: #### L 500.4050, L100.0100 #### [facility] [address] [place], [address] Erythrocyte distribution width (RBC) [Ratio] 12.0 % Normal 11.6-14.6 [facility] Comment on above: Performed By: #### L 500.4050, L100.0100 #### [facility] [address] [place], [address] Hematocrit (Bld) [Volume fraction] 37.1 % Normal 37-47 [facility] Comment on above: Performed By: #### L 500.4050, L100.0100 #### [facility] [address] [place], [address] Hemoglobin (Bld) [Mass/Vol] 12.3 g/dL Normal 12.0-15.0 [facility] Comment on above: Performed By: #### L 500.4050, L100.0100 #### [facility] [address] [place], [address] IG% 0.400 Normal 0.0-0.9 [facility] Comment on above: Result Comment: IG% - Immature Granulocytes (promyelocytes, myelocytes and metamyelocytes) > 1% indicates that a LEFT SHIFT is Present. Performed By: #### L 500.4050, L100.0100 #### [facility] [address] [place], [address] Lymphocytes/100 WBC (Bld) 17.5 % Low 19-41 [facility] Comment on above: Performed By: #### L 500.4050, L100.0100 #### [facility] [address] [place], [address] MCH (RBC) [Entitic mass] 28.5 pg Normal 27.0-32.0 [facility] Comment on above: Performed By: #### L 500.4050, L100.0100 #### [facility] [address] [place], [address] MCHC (RBC) [Mass/Vol] 33.2 g/dL Normal 32-36 [facility] Comment on above: Performed By: #### L 500.4050, L100.0100 #### [facility] [address] [place], [address] MCV (RBC) [Entitic vol] 85.9 fL Normal 81-99 [facility] Comment on above: Performed By: #### L 500.4050, L100.0100 #### [facility] [address] [place], [address] Monocytes/100 WBC (Bld) 1.8 % Normal 0-10 [facility] Comment on above: Performed By: #### L 500.4050, L100.0100 #### [facility] [address] [place], [address] Neutrophils/100 WBC (Bld) 78.4 % High 47-70 [facility] Comment on above: Performed By: #### L 500.4050, L100.0100 #### [facility] [address] [place], [address] Nucleated RBC (Bld) [#/Vol] 0 10*3/uL Normal 0-5 [facility] Comment on above: Performed By: #### L 500.4050, L100.0100 #### [facility] [address] [place], [address] Platelet mean volume (Bld) [Entitic vol] 10.8 fL Normal 6.2-12.0 [facility] Comment on above: Performed By: #### L 500.4050, L100.0100 #### [facility] [address] [place], [address] Platelets (Bld) [#/Vol] 236 10*3/uL Normal 150-450 [facility] Comment on above: Performed By: #### L 500.4050, L100.0100 #### [facility] [address] [place], [address] RBC (Bld) [#/Vol] 4.32 10*6/uL Normal 4.2-5.4 [facility] Comment on above: Performed By: #### L 500.4050, L100.0100 #### [facility] [address] [place], [address] RDW SD 38.0 fl Normal 35.1-43.9 [facility] Comment on above: Performed By: #### L 500.4050, L100.0100 #### [facility] [address] [place], [address] WBC (Bld) [#/Vol] 5.6 10*3/uL Normal 4.4-11.0 [facility] Comment on above: Performed By: #### L 500.4050, L100.0100 #### [facility] [address] [place], [address] Carbon dioxide, total [Moles /volume] in Central venous bloodOrdered By: Arnaud Borja on 02-13-2025 CO2 [Moles/Vol] 23.9 mmol/L 21.0-32.0 [facility] Chloride assayOrdered By: Jluis Borja on 02-13-2025 Chloride [Moles/Vol] 105 mmol/L 98-108 [facility] Comprehensive Metabolic Prof ilon 02-13-2025 Albumin [Mass/Vol] 4.4 g/dL Normal 3.5-5.0 [facility] Comment on above: Performed By: #### L 500.4050, L100.0100 #### [facility] [address] [place], [address] Albumin/Globulin [Mass ratio] 1.4 {ratio} Normal 0.9-2.4 [facility] Comment on above: Performed By: #### L 500.4050, L100.0100 #### [facility] [address] [place], [address] ALK PHOS 103 U/L Normal 35-104 [facility] Comment on above: Performed By: #### L 500.4050, L100.0100 #### [facility] [address] [place], [address] ALT [Catalytic activity/Vol] 20 U/L Normal <=34 [facility] Comment on above: Performed By: #### L 500.4050, L100.0100 #### [facility] [address] [place], [address] AST [Catalytic activity/Vol] 23 U/L Normal <=31 [facility] Comment on above: Performed By: #### L 500.4050, L100.0100 #### [facility] [address] [place], [address] Bilirubin [Mass/Vol] 0.15 mg/dL Normal 0.00-1.30 [facility] Comment on above: Performed By: #### L 500.4050, L100.0100 #### [facility] [address] [place], [address] BUN/CRE 16.1 RATIO Normal 10-20 [facility] Comment on above: Performed By: #### L 500.4050, L100.0100 #### [facility] [address] [place], [address] Calcium [Mass/Vol] 9.5 mg/dL Normal 7.6-11.0 [facility] Comment on above: Performed By: #### L 500.4050, L100.0100 #### [facility] [address] [place], [address] Chloride [Moles/Vol] 105 mmol/L Normal 98-108 [facility] Comment on above: Performed By: #### L 500.4050, L100.0100 #### [facility] [address] [place], [address] CO2 [Moles/Vol] 23.9 mmol/L Normal 21.0-32.0 [facility] Comment on above: Performed By: #### L 500.4050, L100.0100 #### [facility] [address] [place], [address] Creatinine [Mass/Vol] 0.79 mg/dL Normal 0.70-1.20 [facility] Comment on above: Performed By: #### L 500.4050, L100.0100 #### [facility] [address] [place], [address] ECRCL 81.77 ml/min Normal 50-250 [facility] Comment on above: Performed By: #### L 500.4050, L100.0100 #### [facility] [address] [place], [address] GAP 11 Normal 5-15 [facility] Comment on above: Performed By: #### L 500.4050, L100.0100 #### [facility] [address] [place], [address] GFR/1.73 sq M.predicted among non-blacks MDRD (S/P/Bld) [Vol rate/Area] 94 mL/min/{1.73_m2} Normal >60 [facility] Comment on above: Result Comment: mL/m in/1.73m2 CKD-EPI Creatinine Equation (2020) Performed By: #### L 500.4050, L100.0100 #### [facility] [address] [place], [address] Globulin (S) [Mass/Vol] 3.1 g/dL Normal 2.2-4.2 [facility] Comment on above: Performed By: #### L 500.4050, L100.0100 #### [facility] [address] [place], [address] Glucose [Mass/Vol] 134 mg/dL High 70-99 [facility] Comment on above: Performed By: #### L 500.4050, L100.0100 #### [facility] [address] [place], [address] Potassium [Moles/Vol] 3.9 mmol/L Normal 3.3-5.1 [facility] Comment on above: Performed By: #### L 500.4050, L100.0100 #### [facility] [address] [place], [address] Sodium [Moles/Vol] 140 mmol/L Normal 133-145 [facility] Comment on above: Performed By: #### L 500.4050, L100.0100 #### [facility] [address] [place], [address] T PROT 7.5 g/dL Normal 5.9-8.4 [facility] Comment on above: Performed By: #### L 500.4050, L100.0100 #### [facility] [address] [place], [address] Urea nitrogen [Mass/Vol] 13 mg/dL Normal 4-19 [facility] Comment on above: Performed By: #### L 500.4050, L100.0100 #### [facility] [address] [place], [address] Eosinophil percentageOrdered By: Arnaud Borja on 02-13-2025 Eosinophils/100 WBC (Bld) 1.2 % 0-5 [facility] Erythrocyte distribution wid th ratioOrdered By: [facility] Center[facility] Borja on 02-13-2025 Erythrocyte distribution width (RBC) [Ratio] 12.0 % 11.6-14.6 [facility] Erythrocyte distribution wid th standard deviationOrdered By: [facility] Borja on 02-13-2025 Erythrocyte distribution width (RBC) [Ratio] 38.0 fl 35.1-43.9 [facility] Glomerular filtration rate ( GFR) estimation/1.73 sq m using serum, plasma, or whole bOrdered By: Arnaud Borja on 02-13-2025 GFR/1.73 sq M.predicted among non-blacks MDRD (S/P/Bld) [Vol rate/Area] 94 mL/min/{1.73_m2} >60 [facility] Comment on above: mL/min/1.73m2 CKD-EP I Creatinine Equation (2020) Hematocrit Auto (Bld) [Volum e fraction]Ordered By: Arnaud Borja on 02-13-2025 Hematocrit (Bld) [Volume fraction] 37.1 % 37-47 [facility] Hemoglobin measurementOrdere d By: Arnaud Borja on 02-13-2025 Hemoglobin (Bld) [Mass/Vol] 12.3 g/dL 12.0-15.0 [facility] Immature granulocytes/100 WB C Auto (Bld)Ordered By: Arnaud Borja on 02-13-2025 Immature granulocytes/100 WBC (Bld) 0.400 % 0.0-0.9 [facility] Comment on above: IG% - Immature Granu locytes (promyelocytes, myelocytes and metamyelocytes) > 1% indicates that a LEFT SHIFT is Present. Laboratory - Chemistry and C hemistry - challengeOrdered By: Arnaud Borja on 02-13-2025 AST [Catalytic activity/Vol] 23 U/L <32 [facility] MCV (mean corpuscular volume ) determinationOrdered By: Arnaud Borja on 02-13-2025 MCV (RBC) [Entitic vol] 85.9 fL 81-99 [facility] Magnesiumon 02-13-2025 Magnesium [Mass/Vol] 2.3 mg/dL High 1.5-2.2 [facility] Comment on above: Performed By: #### L 500.4050, L100.0100 #### [facility] Laboratory [address] [place] [address], [address] Magnesium measurement (mass/ volume)Ordered By: Arnaud Borja on 02-13-2025 Magnesium (Unsp spec) [Mass/Vol] 2.3 mg/dL High 1.5-2.2 [facility] Mean corpuscular hemoglobin (MCH) determinationOrdered By: Arnaud Borja on 02-13-2025 MCH (RBC) [Entitic mass] 28.5 pg 27.0-32.0 [facility] Mean corpuscular hemoglobin concentration (MCHC) determinationOrdered By: Arnaud Borja on 02-13-2025 MCHC (RBC) [Mass/Vol] 33.2 g/dL 32-36 [facility] Mean platelet volume determi nationOrdered By: Arnaud Borja on 02-13-2025 Platelet mean volume (Bld) [Entitic vol] 10.8 fL 6.2-12.0 [facility] Monocyte percentageOrdered B y: Arnaud Borja on 02-13-2025 Monocytes/100 WBC (Bld) 1.8 % 0-10 [facility] Neutrophil percentageOrdered By: [facility] on 02-13-2025 Neutrophils/100 WBC (Bld) 78.4 % High 47-70 [facility] Nucleated red blood cell per centageOrdered By: [facility] on 02-13-2025 Nucleated RBC/100 WBC (Bld) [Ratio] 0 % 0-5 [facility] Oncology Visit Reporton 01-28 Oncology Visit Report [facility] [place] [facility] [address] [place] [address] OFFICE VISIT Date of Service: 02/13/25 0830 MR#: [id number] Acct: [id number] Name: HOWARD HALL Falguni Rep #: [id number] : 1980 From: Kelsey Holland NP PATIENT SERVICES SPECIALIST -C Age/Sex: 44/F Location: [facility] Status: Signed HPI Subjective Date of Service 02/13/25 Chief Complaint Breast cancer on treatment- start [facility] History of Present Illness 44-year-old female menopausal [...] in 100% of tumor cells PROGESTERONE RECEPTOR (NC): Positive, strong immunoreactivity in 100% of tumor [...] evaluation anticip (more content not included)... Normal [facility] Platelet countOrdered By: Jluis Borja on 02-13-2025 Platelets (Bld) [#/Vol] 236 10*3/uL 150-450 [facility] Potassium measurement (mass/ volume)Ordered By: Arnaud Borja on 02-13-2025 Potassium (Unsp spec) [Mass/Vol] 3.9 mmol/L 3.3-5.1 [facility] RBC Auto (Bld) [#/Vol]Ordere d By: Arnaud Borja on 02-13-2025 RBC (Bld) [#/Vol] 4.32 10*6/uL 4.2-5.4 [facility] Serum creatinine measurement (mass/volume)Ordered By: Arnaud Borja on 02-13-2025 Creatinine [Mass/Vol] 0.79 mg/dL 0.70-1.20 [facility] Serum globulin measurementOr dered By: Arnaud Borja on 02-13-2025 Globulin (S) [Mass/Vol] 3.1 g/dL 2.2-4.2 [facility] Serum glucose measurement (m ass/volume)Ordered By: Arnaud Borja on 02-13-2025 Glucose [Mass/Vol] 134 mg/dL High 70-99 [facility] Serum or plasma alanine rainey otransferase (ALT) measurementOrdered By: Arnaud Borja on 02-13-2025 ALT [Catalytic activity/Vol] 20 U/L <35 [facility] Serum or plasma albumin ceasar urement (mass/volume)Ordered By: Arnaud Borja on 02-13-2025 Albumin [Mass/Vol] 4.4 g/dL 3.5-5.0 [facility] Serum or plasma albumin/glob ulin mass ratioOrdered By: Arnaud Borja on 02-13-2025 Albumin/Globulin [Mass ratio] 1.4 {ratio} 0.9-2.4 [facility] Serum or plasma alkaline dasia sphatase measurementOrdered By: Arnaud Borja on 02-13-2025 ALP [Catalytic activity/Vol] 103 U/L 35-104 [facility] Serum or plasma calcium ceasar urement (mass/volume)Ordered By: Arnaud Borja on 02-13-2025 Calcium [Mass/Vol] 9.5 mg/dL 7.6-11.0 [facility] Serum or plasma urea nitroge n measurement (mass/volume)Ordered By: Arnaud Borja on 02-13-2025 Urea nitrogen [Mass/Vol] 13 mg/dL 4-19 [facility] Sodium levelOrdered By: Meir Borja on 02-13-2025 Sodium [Moles/Vol] 140 mmol/L 133-145 [facility] Total proteinOrdered By: Charanjit Borja on 02-13-2025 Protein [Mass/Vol] 7.5 g/dL 5.9-8.4 [facility] White blood cell (WBC) count Ordered By: Arnaud Borja on 02-13-2025 WBC (Bld) [#/Vol] 5.6 10*3/uL 4.4-11.0 [facility] CBC W/Diff, Automatedon 01-28 Absolute Neut Normal 2.0-7.7 [facility] Comment on above: Result Comment: OM C ANCEL REQUEST Performed By: #### L 500.4050, L100.0100 #### [facility] Laboratory [address] [place], [address] HCT Normal 37-47 [facility] Comment on above: Result Comment: OM C ANCEL REQUEST Performed By: #### L 500.4050, L100.0100 #### [facility] [address] [place], [address] HGB Normal 12.0-15.0 [facility] Comment on above: Result Comment: OM C ANCEL REQUEST Performed By: #### L 500.4050, L100.0100 #### [facility] [address] [place], [address] MCH Normal 27.0-32.0 [facility] Comment on above: Result Comment: OM C ANCEL REQUEST Performed By: #### L 500.4050, L100.0100 #### [facility] [address] [place], [address] MCHC Normal 32-36 [facility] Comment on above: Result Comment: OM C ANCEL REQUEST Performed By: #### L 500.4050, L100.0100 #### [facility] [address] [place], [address] MCV Normal 81-99 [facility] Comment on above: Result Comment: OM C ANCEL REQUEST Performed By: #### L 500.4050, L100.0100 #### [facility] [address] [place], [address] NEUT% Normal 47-70 [facility] Comment on above: Result Comment: OM C ANCEL REQUEST Performed By: #### L 500.4050, L100.0100 #### [facility] [address] [place], [address] PLT Normal 150-450 [facility] Comment on above: Result Comment: OM C ANCEL REQUEST Performed By: #### L 500.4050, L100.0100 #### [facility] [address] [place], [address] RBC Normal 4.2-5.4 [facility] Comment on above: Result Comment: OM C ANCEL REQUEST Performed By: #### L 500.4050, L100.0100 #### [facility] [address] [place], [address] RDW CV Normal 11.6-14.6 [facility] Comment on above: Result Comment: OM C ANCEL REQUEST Performed By: #### L 500.4050, L100.0100 #### [facility] [address] [place], [address] RDW SD Normal 35.1-43.9 [facility] Comment on above: Result Comment: OM C ANCEL REQUEST Performed By: #### L 500.4050, L100.0100 #### [facility] [address] [place], [address] WBC Normal 4.4-11.0 [facility] Comment on above: Result Comment: OM C ANCEL REQUEST Performed By: #### L 500.4050, L100.0100 #### [facility] [address] [place], [address] Comprehensive Metabolic Prof ilon 02-10-2025 ALB Normal 3.5-5.0 [facility] Comment on above: Result Comment: OM C ANCEL REQUEST Performed By: #### L 500.4050, L100.0100 #### [facility] [address] [place], [address] ALK PHOS Normal 35-104 [facility] Comment on above: Result Comment: OM C ANCEL REQUEST Performed By: #### L 500.4050, L100.0100 #### [facility] [address] [place], [address] ALT Normal <=34 [facility] Comment on above: Result Comment: OM C ANCEL REQUEST Performed By: #### L 500.4050, L100.0100 #### [facility] [address] [place], [address] AST Normal <=31 [facility] Comment on above: Result Comment: OM C ANCEL REQUEST Performed By: #### L 500.4050, L100.0100 #### [facility] [address] [place], [address] BUN Normal 4-19 [facility] Comment on above: Result Comment: OM C ANCEL REQUEST Performed By: #### L 500.4050, L100.0100 #### [facility] [address] [place], [address] BUN/CRE Normal 10-20 [facility] Comment on above: Result Comment: OM C ANCEL REQUEST Performed By: #### L 500.4050, L100.0100 #### [facility] [address] [place], [address] Calcium Normal 7.6-11.0 [facility] Comment on above: Result Comment: OM C ANCEL REQUEST Performed By: #### L 500.4050, L100.0100 #### [facility] [address] [place], [address] CL Normal 98-108 [facility] Comment on above: Result Comment: OM C ANCEL REQUEST Performed By: #### L 500.4050, L100.0100 #### [facility] [address] [place], [address] CO2 Normal 21.0-32.0 [facility] Comment on above: Result Comment: OM C ANCEL REQUEST Performed By: #### L 500.4050, L100.0100 #### [facility] [address] [place], [address] CREAT,SERUM Normal 0.70-1.20 [facility] Comment on above: Result Comment: OM C ANCEL REQUEST Performed By: #### L 500.4050, L100.0100 #### [facility] [address] [place], [address] eGFR Normal >60 [facility] Comment on above: Result Comment: OM C ANCEL REQUEST Performed By: #### L 500.4050, L100.0100 #### [facility] [address] [place], [address] GAP Normal 5-15 [facility] Comment on above: Result Comment: OM C ANCEL REQUEST Performed By: #### L 500.4050, L100.0100 #### [facility] [address] [place], [address] GLU Normal 70-99 [facility] Comment on above: Result Comment: OM C ANCEL REQUEST Performed By: #### L 500.4050, L100.0100 #### [facility] [address] [place], [address] Potassium Normal 3.3-5.1 [facility] Comment on above: Result Comment: OM C ANCEL REQUEST Performed By: #### L 500.4050, L100.0100 #### [facility] [address] [place], [address] T BILI Normal 0.00-1.30 [facility] Comment on above: Result Comment: OM C ANCEL REQUEST Performed By: #### L 500.4050, L100.0100 #### [facility] [address] [place], [address] T PROT Normal 5.9-8.4 [facility] Comment on above: Result Comment: OM C ANCEL REQUEST Performed By: #### L 500.4050, L100.0100 #### [facility] [address] [place], [address] Comprehensive Metabolic Profil Normal 133-145 [facility] Comment on above: Result Comment: JIM Aileen CORBETT REQUEST Performed By: #### L 500.4050, L100.0100 #### [facility] [address] [place], [address] Echocardiogram study reportO rdered By: Cirilo Centeno on 02-05-2025 Study report [facility] [address] [place] [address] ONC Echo Complete 02/05/25 1615 MR#: [id number] Acct: [id number] Name: HOWARD HALL Rep #:[id number] : 1980 44 From: Cirilo Montes De Oca Attending Dr: Dr. Arnaud Borja MD Status: REG CLI Ordering Dr: Arnaud Borja MD Date: 02/05/25 Location: [facility] Sex: F C Admitted: Reason For Study [...] Pablo Date Dictated: 02/05/251614 Date Transcribed: 02/05/251853 Mat Sewer: Signed [facility] Work Phone: ONC Echo Completeon 02-06-20 ONC Echo Complete [facility] Cardiovascular Services [address] [place] [address] ONC Echo Complete 02/05/251614 MR#: [id number] Acct: [id number] Name: HOWARD HALL Rep #: [id number] : 1980 44 From: Cirilo Centeno MD Attending Dr: Dr. Arnaud Borja MD Status: REG CLI Ordering Dr: Arnaud Borja MD Date: 02/05/25 Location: [facility] Sex: F C Admitted: Reason For Study [...] Date Dictated: 02/05/25 1615 Date Transcribed: 02/05/251853 Mat Sewer: Signed Normal [facility] Oncology Visit Reporton Oncology Visit Report [facility] [place] [facility] [address] [place] [address] OFFICE VISIT Date of Service: 02/05/25 1524 MR#: [id number] Acct: [id number] Name: HOWARD HALL Rep #: [id number] : 1980 From: Kelsey Holland NP PATIENT SERVICES SPECIALIST -C Age/Sex: 44/F Location: [facility] Status: Signed HPI Subjective Date of [...] in 100% of tumor cells PROGESTERONE RECEPTOR (NC): Positive, strong immunoreactivity in 100% of tumor [...] education visit. Admits social support is limited. [facility] Medical History (Updated 02/05/25 @ 17:01 by Kelsey Holland NP, PATIENT SERVICES SPECIALIST-C) Encounter for education Post-menopausal Wears glasses Cancer Depression Anemia Smoker H (more content not included)... Normal [facility] Oncology Visit Reporton 12-30 Oncology Visit Report [facility] [address] [place], [place] [address]luis [place] [address] OFFICE VISIT Date of Service: 01/23/25 1125 MR#: [id number] Acct: [id number] Name: HOWARD HALL Rep #: [id number] : 1980 From: Arnaud Borja MD Age/Sex: 44/F Location: [facility] Status: Signed HPI Subjective Date of [...] in 100% of tumor cells PROGESTERONE RECEPTOR (NC): Positive, strong immunoreactivity in 100% of tumor [...] and response: TCHP to start January 2025 [facility] Medical History Post-menopausal Wears glasses Cancer Depression Anemia Smoker History of edema Regional lymph node metastasis present Anxiety Breast cancer Surgical History History of wisdom toot (more content not included)... Normal [facility] Bone Scan Whole Bodyon 01-17 Bone Scan Whole Body [facility] Imaging Services [address] [place] [address] Bone Scan Whole Body MR#: [id number] Acct: [id number] Name: HOWARD HALL Rep #: [id number] : 1980 F 44 From: Jerry Shaffer DO PCP: Dr. David Ghotra DO Status: REG CLI Study: Bone Scan Whole Body Date of Exam: 01/17/25 Exam# [id number] Ordering Dr: Arnaud Borja MD PROCEDURE: BONE [...] evidence of metastatic breast cancer. Reading Location[facility] CC: Dr. Arnaud Borja MD; Dr. David Ghotra DO Mat Sewer: Signed Normal [facility] CT Chest, Abd, Pel w/Contras ton 01-13-2025 CT Chest, Abd, Pel w/Contrast [facility] Imaging Services [address] [place] [address] CT Chest, Abd, Pel w/Contrast MR#: [id number] Acct: [id number] Name: HOWARD HALL Rep #: [id number] : 1980 F 44 From: Figueroa Tinoco MD PCP: Dr. David Alec, DO Status: REG CLI Study: CT Chest, Abd, Pel w/Contrast Date of Exam: Exam# [id number] Ordering Dr: Arnaud Borja MD PROCEDURE: CT [...] 3. Other findings as noted. Reading Location: [id number] CC: Dr. Arnaud Borja MD; Dr. David Ghotra DO Mat Sewer: Signed Normal [facility] Chest 1 Viewon 01-08-2025 Chest 1 View [facility] Imaging Services [address] [place] [address] Chest 1 View MR#: [id number] Acct: [id number] Name: HOWARD HALL Rep #: [id number] : 1980 F 44 From: Larry shields MD PCP: Dr. David Ghotra DO Status: [facility] Study: Chest 1 View Date of Exam: 01/08/25 Exam# [id number] Ordering Dr: Feliciano Castellon PROCEDURE: CHEST 1 [...] vena cava and right atrium. Reading Location: [place] [address] CC: Dr. Feliciano Castellon MD; Dr. David Ghotra DO Mat Sewer: Signed Normal [facility] Discharge Instructionon 12-29 Discharge Instruction [facility] Medical Records Department [address] [place] [address] Instructions for Home/Discharge Instructions 01/08/25 1507 MR#: [id number] Acct: [id number] Name: HOWARD HALL Rep #: [id number] : 1980 44 From: Feliciano Castellon MD PCP: Dr. David Ghotra DO Status:REG INC Discharge Instructions Procedure Gallbladder Diet Discharge Diet: [...] to schedule 2 week follow up appointment. [phone] Test Results: Test results from this visit will be discussed in further detail at your follow-up appointment, if applicable. Discharge Plan Admission Attending Provider: Feliciano Castellon Primary Care Provider: David Ghotra Instructions Print Language: Nepalese Discharge Orders/Prescriptions Prescriptions: No Action citalopram 40 mg tablet 40 mg PO QDAY Referrals / Follow Up: David Ghotra DO [Primary Care Provider] - Disposition Disposition (needs filled in before D/C Order can be placed): Home, Self Care 01/08/25 1510 Feliciano Castellon MD CC: Dr. David Ghotra DO Signed Normal [facility] H AND P Exam - Surgicalon H&P Exam - Surgical [facility] Medical Records Department [address] [place] [address] H P Exam - Surgical 01/08/25 1420 MR#: [id number] Acct: [id number] Name: HOWARD HALL Rep #: [id number] : 1980 44 From: Feliciano Castellon MD PCP: Dr. David Ghotra, DO Status:[facility] Location: [place] [address] HPI - General HPI Narrative HOWARD HALL, [...] willing to proceed. Feliciano Castellon MD Pager: [facility] [address] [place] [address], [address] [place] [address] Office: 01/08/25 142 Cosigner Signature (if applicable): CC: Dr. Feliciano Castellon MD; Dr. David Ghotra, Signed Normal [facility] MR/POSTOP.[facility] 01-08-2025 MR/POSTOP.[facility] Medical Records Department [address] [place], [place] [id number] Anesthesia Postop Eval I 01/08/25 1553 MR#: [id number] Acct: [id number] Name: HOWARD HALL Rep #: [id number] : 1980 44 From: Rebecca Mathews APPLICATION SUPPORT DEVELOPER PCP: Dr. David Ghotra DO Status:REG SDC Y Race: C Location: [place] [address]- Anesthesia: Postop Eval I Current Vital Signs [...] completed: Yes 01/08/25 1554 Date Rebecca DeForeest APPLICATION SUPPORT DEVELOPER Cosigner Signature: Date CC: Signed Normal [facility] MR/POSTOP.[facility] Medical Records Department [address] [place] [address] Anesthesia Postop Eval I 01/08/25 1506 MR#: [id number] Acct: [id number] Name: VICKEYHOWARD WILLIAM Falguni Rep #: [id number] : 1980 44 From: Rebecca Mathews APPLICATION SUPPORT DEVELOPER PCP: Dr. David Ghotra, DO Status:REG SDC Y Race: C Location: [place] [address] Anesthesia: Postop Eval I Current Vital Signs [...] completed: Yes 01/08/25 1508 Date Rebecca DeForeest APPLICATION SUPPORT DEVELOPER Cosigner Signature: CC: Signed Normal [facility] MR/[id number] 01-08-2025 MR/POSTOPAN2 [facility] Medical Records Department [address] [place] [address] Anesthesia Postop Eval II 01/08/25 1530 MR#: [id number] Acct: [id number] Name: HOWARD HALL Rep #: [id number] : 1980 44 From: Clyde Starks MD PCP: Dr. David Ghotra, DO Status:REG SDC Y Race: C Location: [place] [address] Anesthesia Postop Eval I Sum Postop Eval Completion status Anesthesia document: Postop Eval 1 completed: Yes Anesthesia Postop Eval I Summary Anesthesia Postop Eval I Summary: Anesthesia Postop Eval I: Assessment Summary Airway patent Yes 01/08/25 15:08 APPLICATION SUPPORT DEVELOPER.JDEF Spontaneous unlabored Yes 01/08/25 15:08 APPLICATION SUPPORT DEVELOPER.JDEF respirations Mental status Awake 01/08/25 15:08 APPLICATION SUPPORT DEVELOPER.JDEF nausea No 01/08/25 15:08 APPLICATION SUPPORT DEVELOPER.JDEF Vomiting No 01/08/25 15:08 APPLICATION SUPPORT DEVELOPER.JDEF Anesthesia Postop Eval I: Fluid Summary Crystalloid volume administer 300 01/08/25 15:08 APPLICATION SUPPORT DEVELOPER.JDEF (ml) Colloids volume administered ( ml) Blood Product volume administered (ml) Total IV fluid infused 300 01/08/25 15:08 APPLICATION SUPPORT DEVELOPER.JDEF Anesthesia Postop Eval I: Summary Notes Anesthesia Complication No 01/08/25 15:08 APPLICATION SUPPORT DEVELOPER.JDEF Anesthesia Complication Comment: Post-operative progress note Anesthesia: Postop Eval II Evaluation Mental status: Awake Pain Level: 0 nausea: No Vomiting: No 01/08/25 1530 Date Clyde Starks MD Cosigner Signature: Date CC: Signed Normal [facility] Operative Reporton 5 Operative Report [facility] Medical Records Department [address] [place] [address] Operative Report 01/08/25 1506 MR#: [id number] Acct: [id number] Name: HOWARD HALL Rep #: [id number] : 1980 44 From: Feliciano Castellon MD PCP: Dr. David Ghotra, DO Status:REG [facility] Location: [place] [address] Operative Report (Standard) Operative Information Date of Procedure: 01/08/25 Pre-Operative Diagnosis: Need for vascular access port for chemotherapy Post-Operative Diagnosis: Same Surgery/Procedure Performed: Ultrasound and fluoroscopy guided right chest port placement with utilization of right IJ instrument mechanics supervisor: No Type of Anesthesia: Local MAC RN [...] apply: Implanted device Implanted device details: 8 [place] PowerPort Estimated Blood Loss: 5 Specimen collected: [...] Castellon MD; Dr. David Ghotra DO Signed [facility] MR/PAT.[facility] 01-03-2025 MR/PAT.[facility] Medical Records Department [address] [place] [address] PAT - Anesthesia 01/03/25 0832 MR#: [id number] Acct: [id number] Name: HOWARD HALL Rep #: [id number] : 1980 44 From: Clyed Starks MD PCP: Dr. 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 machine mechanic: Anesthesia History - coin machine mechanic Hx Hospitalization No 01/02/25 13:24 Any Problems [...] take am of surgery PONV PONV - coin machine mechanic: PONV - coin machine mechanic Female Yes 01/02/25 13:24 HX of Motion [...] 12/25/24 16:04 Respiratory Assessment Respiratory Assessment - coin machine mechanic: Respiratory Tract Infection Hx - coin machine mechanic Hx Respiratory Tract Infection No 01/02/25 13:24 STOP Sleep Apnea STOP Sleep Apnea - coin machine mechanic: STOP Sleep Apnea - coin machine mechanic Hx Hypertension No 01/02/25 13:24 Hx Sleep [...] 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 Use History - coin machine mechanic: Tobacco Use History - coin machine mechanic Tobacco Use Smoking Status Light Smoker (<10/day) 01/02/25 13:24 Hx Tobacco Use Yes 01/02/25 13:24 Years Smoking Packs Smoked per Day 0.5 01/02/25 13:24 Smoking Cessation Date was within the last 15 years Hx Smoking Cessation Date Hx Smoking Cessation Counseling Hematologic Medial History Hematologic Hx - 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 [facility] MR/Aleshia 01-02-2025 MR/ZOHREH.YAHIR [facility] Medical Records Department [address] [place] [address] PAT - Anesthesia 01/02/25 1722 MR#: [id number] Acct: [id number] Name: HOWARD HALL Rep #: [id number] : 1980 44 From: Stuart Rashid MD PCP: Dr. David Ghotra, DO Status:PRE SDC Y Race: C Location: [facility] Pre-Assessment Diagnosis/Proposed Procedure Planned Operative Procedure(s): (R) Insertion, Vascular Port right possible left Anesthesia History Anesthesia History - coin machine mechanic: Anesthesia History - coin machine mechanic Hx Hospitalization No 01/02/25 13:24 Any Problems [...] take am of surgery PONV PONV - coin machine mechanic: PONV - coin machine mechanic Female Yes 01/02/25 13:24 HX of Motion [...] 12/25/24 16:04 Respiratory Assessment Respiratory Assessment - coin machine mechanic: Respiratory Tract Infection Hx - coin machine mechanic Hx Respiratory Tract Infection No 01/02/25 13:24 STOP Sleep Apnea STOP Sleep Apnea - coin machine mechanic: STOP Sleep Apnea - coin machine mechanic Hx Hypertension No 01/02/25 13:24 Hx Sleep [...] 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 Use History - coin machine mechanic: Tobacco Use History - coin machine mechanic Tobacco Use Smoking Status Light Smoker (<10/day) 01/02/25 13:24 Hx Tobacco Use Yes 01/02/25 13:24 Years Smoking Packs Smoked per Day 0.5 01/02/25 13:24 Smoking Cessation Date was within the last 15 years Hx Smoking Cessation Date Hx Smoking Cessation Counseling Hematologic Medial History Hematologic Hx - 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 Normal [facility] CA 15-3on 12-27-2024 CA 15-3 74.7 U/mL Abnormal 0.0-25.0 [facility] Comment on above: Result Comment: TeamVisibility Electrochemiluminescence Immunoassay (ECLIA) Values obtained with different assay methods or kits cannot be used interchangeably. Results cannot be interpreted as absolute evidence of the presence or absence of malignant disease. Performed at: [address] [id number] Floor Sanding Machine Operator: Mendez Parmar PhD, Phone: [phone] Performed By: #### L 3100.5040, L100.0100, L500.4050, L400.7600, L3100.5055, L3100.5030 ####[facility] [address] [place], [place], [id number] CA 27.29on 12-27-2024 CA 27.29 103.0 U/mL Abnormal 0.0-38.6 [facility] Comment on above: Result Comment: [email or web address] Immunochemiluminometric Methodology (ICMA) Values obtained with different assay methods or kits cannot be used interchangeably. Results cannot be interpreted as absolute evidence of the presence or absence of malignant disease. Performed By: #### L 3100.5040, L100.0100, L500.4050, L400.7600, L3100.5055, L3100.5030 ####[facility] [address] [place], [address] Absolute lymphocyte countOrd ered By: Arnaud Borja on 12-25-2024 Lymphocytes Auto (Unsp spec) [#/Vol] 2.39 10*3/uL 0.83-4.51 [facility] Absolute neutrophil countOrd ered By: Arnaud Borja on 12-25-2024 Neutrophils (Bld) [#/Vol] 3.0 10*3/uL 2.0-7.7 [facility] Anion gap in Serum or Plasma Ordered By: Arnaud Borja on 12-25-2024 Anion gap [Moles/Vol] 11 mmol/L 5- [facility] Automated lymphocyte count a s percentage of total leukocytesOrdered By: Arnaud Borja on 12-25-2024 Lymphocytes/100 WBC Auto (Unsp spec) 39.3 % - [facility] BUN/creatinine ratioOrdered By: [facility] Borja on 12-25-2024 Urea nitrogen/Creatinine [Mass ratio] 16.4 mg/mg 10-20 [facility] Basophil percentageOrdered B y: Arnaud Borja on 12-25-2024 Basophils/100 WBC (Bld) 0.7 % 0-1 [facility] Bilirubin, totalOrdered By: Arnaud Borja on 12-25-2024 Bilirubin [Mass/Vol] 0.28 mg/dL 0.00-1.30 [facility] CA 15-3Ordered By: Arnaud alvarado on 12-25-2024 CA 15-3 74.7 U/mL High 0.0-25.0 [facility] Comment on above: [employer] El ectrochemiluminescence Immunoassay(ECLIA)Values obtained with different assay methods or kits cannotbe used interchangeably. Results cannot be interpreted asabsolute evidence of the presence or absence of malignantdisease.Performed at: [address] [id number] Director: Mendez Parmar PhD, Phone: [phone] CA 27.29Ordered By: Arnaud Borja on 12-25-2024 CA 27.29 103.0 U/mL High 0.0-38.6 [facility] Comment on above: Siemens Chilltimeaur Immu nochemiluminometric Methodology (ICMA)Values obtained with different assay methods or kits cannotbe used interchangeably. Results cannot be interpreted asabsolute evidence of the presence or absence of malignantdisease. CBC W/Diff, Automatedon 11-29 Absolute Lymph 2.39 X10 3/uL Normal 0.83-4.51 [facility] Comment on above: Performed By: #### L 3100.5040, L100.0100, L500.4050, L400.7600, L3100.5055, L3100.5030 ####[facility] [address] [place], [address] Absolute Neut 3.0 X10 3/uL Normal 2.0-7.7 [facility] Comment on above: Performed By: #### L 3100.5040, L100.0100, L500.4050, L400.7600, L3100.5055, L3100.5030 ####[facility] [address] [place], [address] Basophils/100 WBC (Bld) 0.7 % Normal 0-1 [facility] Comment on above: Performed By: #### L 3100.5040, L100.0100, L500.4050, L400.7600, L3100.5055, L3100.5030 ####[facility] [address] [place], [address] Eosinophils/100 WBC (Bld) 3.5 % Normal 0-5 [facility] Comment on above: Performed By: #### L 3100.5040, L100.0100, L500.4050, L400.7600, L3100.5055, L3100.5030 ####[facility] [address] [place], [address] Erythrocyte distribution width (RBC) [Ratio] 12.4 % Normal 11.6-14.6 [facility] Comment on above: Performed By: #### L 3100.5040, L100.0100, L500.4050, L400.7600, L3100.5055, L3100.5030 ####[facility] [address] [place], [address] Hematocrit (Bld) [Volume fraction] 36.2 % Low 37-47 [facility] Comment on above: Performed By: #### L 3100.5040, L100.0100, L500.4050, L400.7600, L3100.5055, L3100.5030 ####[facility] [address] [place], [address] Hemoglobin (Bld) [Mass/Vol] 12.3 g/dL Normal 12.0-15.0 [facility] Comment on above: Performed By: #### L 3100.5040, L100.0100, L500.4050, L400.7600, L3100.5055, L3100.5030 ####[facility] [address] [place], [address] IG% 0.200 Normal 0.0-0.9 [facility] Comment on above: Result Comment: IG% - Immature Granulocytes (promyelocytes, myelocytes and metamyelocytes) > 1% indicates that a LEFT SHIFT is Present. Performed By: #### L 3100.5040, L100.0100, L500.4050, L400.7600, L3100.5055, L3100.5030 ####[facility] [address] [place], [address] Lymphocytes/100 WBC (Bld) 39.3 % Normal 19-41 [facility] Comment on above: Performed By: #### L 3100.5040, L100.0100, L500.4050, L400.7600, L3100.5055, L3100.5030 ####[facility] [address] [place], [address] MCH (RBC) [Entitic mass] 29.0 pg Normal 27.0-32.0 [facility] Comment on above: Performed By: #### L 3100.5040, L100.0100, L500.4050, L400.7600, L3100.5055, L3100.5030 ####[facility] [address] [place], [address] MCHC (RBC) [Mass/Vol] 34.0 g/dL Normal 32-36 [facility] Comment on above: Performed By: #### L 3100.5040, L100.0100, L500.4050, L400.7600, L3100.5055, L3100.5030 ####[facility] [address] [place], [address] MCV (RBC) [Entitic vol] 85.4 fL Normal 81-99 [facility] Comment on above: Performed By: #### L 3100.5040, L100.0100, L500.4050, L400.7600, L3100.5055, L3100.5030 ####[facility] [address] [place], [address] Monocytes/100 WBC (Bld) 7.9 % Normal 0-10 [facility] Comment on above: Performed By: #### L 3100.5040, L100.0100, L500.4050, L400.7600, L3100.5055, L3100.5030 ####[facility] [address] [place], [address] Neutrophils/100 WBC (Bld) 48.4 % Normal 47-70 [facility] Comment on above: Performed By: #### L 3100.5040, L100.0100, L500.4050, L400.7600, L3100.5055, L3100.5030 ####[facility] [address] [place], [address] Nucleated RBC (Bld) [#/Vol] 0 10*3/uL Normal 0-5 [facility] Comment on above: Performed By: #### L 3100.5040, L100.0100, L500.4050, L400.7600, L3100.5055, L3100.5030 ####[facility] [address] [place], [address] Platelet mean volume (Bld) [Entitic vol] 11.0 fL Normal 6.2-12.0 [facility] Comment on above: Performed By: #### L 3100.5040, L100.0100, L500.4050, L400.7600, L3100.5055, L3100.5030 ####[facility] [address] [place], [address] Platelets (Bld) [#/Vol] 258 10*3/uL Normal 150-450 [facility] Comment on above: Performed By: #### L 3100.5040, L100.0100, L500.4050, L400.7600, L3100.5055, L3100.5030 ####[facility] [address] [place], [address] RBC (Bld) [#/Vol] 4.24 10*6/uL Normal 4.2-5.4 [facility] Comment on above: Performed By: #### L 3100.5040, L100.0100, L500.4050, L400.7600, L3100.5055, L3100.5030 ####[facility] [address] [place], [address] RDW SD 38.7 fl Normal 35.1-43.9 [facility] Comment on above: Performed By: #### L 3100.5040, L100.0100, L500.4050, L400.7600, L3100.5055, L3100.5030 ####[facility] [address] [place], [address] WBC (Bld) [#/Vol] 6.1 10*3/uL Normal 4.4-11.0 [facility] Comment on above: Performed By: #### L 3100.5040, L100.0100, L500.4050, L400.7600, L3100.5055, L3100.5030 ####[facility] [address] [place], [address] Carbon dioxide, total [Moles /volume] in Central venous bloodOrdered By: Arnaud Borja on 12-25-2024 CO2 [Moles/Vol] 25.7 mmol/L 21.0-32.0 [facility] Chloride assayOrdered By: Jluis Borja on 12-25-2024 Chloride [Moles/Vol] 105 mmol/L 98-108 [facility] Comprehensive Metabolic Prof ilon 12-25-2024 Albumin [Mass/Vol] 4.6 g/dL Normal 3.5-5.0 [facility] Comment on above: Performed By: #### L 3100.5040, L100.0100, L500.4050, L400.7600, L3100.5055, L3100.5030 ####[facility] [address] [place], [address] Albumin/Globulin [Mass ratio] 1.5 {ratio} Normal 0.9-2.4 [facility] Comment on above: Performed By: #### L 3100.5040, L100.0100, L500.4050, L400.7600, L3100.5055, L3100.5030 ####[facility] [address] [place], [address] ALK PHOS 98 U/L Normal 35-104 [facility] Comment on above: Performed By: #### L 3100.5040, L100.0100, L500.4050, L400.7600, L3100.5055, L3100.5030 ####[facility] [address] [place], [address] ALT [Catalytic activity/Vol] 24 U/L Normal <=34 [facility] Comment on above: Performed By: #### L 3100.5040, L100.0100, L500.4050, L400.7600, L3100.5055, L3100.5030 ####[facility] [address] [place], [address] AST [Catalytic activity/Vol] 27 U/L Normal <=31 [facility] Comment on above: Performed By: #### L 3100.5040, L100.0100, L500.4050, L400.7600, L3100.5055, L3100.5030 ####[facility] [address] [place], [address] Bilirubin [Mass/Vol] 0.28 mg/dL Normal 0.00-1.30 [facility] Comment on above: Performed By: #### L 3100.5040, L100.0100, L500.4050, L400.7600, L3100.5055, L3100.5030 ####[facility] [address] [place], [address] BUN/CRE 16.4 RATIO Normal 10-20 [facility] Comment on above: Performed By: #### L 3100.5040, L100.0100, L500.4050, L400.7600, L3100.5055, L3100.5030 ####[facility] [address] [place], [address] Calcium [Mass/Vol] 9.7 mg/dL Normal 7.6-11.0 [facility] Comment on above: Performed By: #### L 3100.5040, L100.0100, L500.4050, L400.7600, L3100.5055, L3100.5030 ####[facility] [address] [place], [address] Chloride [Moles/Vol] 105 mmol/L Normal 98-108 [facility] Comment on above: Performed By: #### L 3100.5040, L100.0100, L500.4050, L400.7600, L3100.5055, L3100.5030 ####[facility] [address] [place], [address] CO2 [Moles/Vol] 25.7 mmol/L Normal 21.0-32.0 [facility] Comment on above: Performed By: #### L 3100.5040, L100.0100, L500.4050, L400.7600, L3100.5055, L3100.5030 ####[facility] [address] [place], [address] Creatinine [Mass/Vol] 0.84 mg/dL Normal 0.70-1.20 [facility] Comment on above: Performed By: #### L 3100.5040, L100.0100, L500.4050, L400.7600, L3100.5055, L3100.5030 ####[facility] [address] [place], [place], [id number] GAP 11 Normal 5-15 [facility] Comment on above: Performed By: #### L 3100.5040, L100.0100, L500.4050, L400.7600, L3100.5055, L3100.5030 ####[facility] [address] [place], [address] GFR/1.73 sq M.predicted among non-blacks MDRD (S/P/Bld) [Vol rate/Area] 88 mL/min/{1.73_m2} Normal >60 [facility] Comment on above: Result Comment: mL/m in/1.73m2 CKD-EPI Creatinine Equation (2020) Performed By: #### L 3100.5040, L100.0100, L500.4050, L400.7600, L3100.5055, L3100.5030 ####[facility] [address] [place], [address] Globulin (S) [Mass/Vol] 3.0 g/dL Normal 2.2-4.2 [facility] Comment on above: Performed By: #### L 3100.5040, L100.0100, L500.4050, L400.7600, L3100.5055, L3100.5030 ####[facility] [address] [place], [address] Glucose [Mass/Vol] 95 mg/dL Normal 70-99 [facility] Comment on above: Performed By: #### L 3100.5040, L100.0100, L500.4050, L400.7600, L3100.5055, L3100.5030 ####[facility] [address] [place], [address] Potassium [Moles/Vol] 4.0 mmol/L Normal 3.3-5.1 [facility] Comment on above: Performed By: #### L 3100.5040, L100.0100, L500.4050, L400.7600, L3100.5055, L3100.5030 ####[facility] [address] [place], [address] Sodium [Moles/Vol] 141 mmol/L Normal 133-145 [facility] Comment on above: Performed By: #### L 3100.5040, L100.0100, L500.4050, L400.7600, L3100.5055, L3100.5030 ####[facility] [address] [place], [address] T PROT 7.5 g/dL Normal 5.9-8.4 [facility] Comment on above: Performed By: #### L 3100.5040, L100.0100, L500.4050, L400.7600, L3100.5055, L3100.5030 ####[facility] [address] [place], [address] Urea nitrogen [Mass/Vol] 14 mg/dL Normal 4-19 [facility] Comment on above: Performed By: #### L 3100.5040, L100.0100, L500.4050, L400.7600, L3100.5055, L3100.5030 ####[facility] [address] [place], [address] Eosinophil percentageOrdered By: Arnaud Borja on 12-25-2024 Eosinophils/100 WBC (Bld) 3.5 % 0-5 [facility] Erythrocyte distribution wid th ratioOrdered By: [facility] Huong on 12-25-2024 Erythrocyte distribution width (RBC) [Ratio] 12.4 % 11.6-14.6 [facility] Erythrocyte distribution wid th standard deviationOrdered By: [facility] Huong on 12-25-2024 Erythrocyte distribution width (RBC) [Ratio] 38.7 fl 35.1-43.9 [facility] FSH and LHon 12-25-2024 FSH 89.2 mIU/mL Normal [facility] Comment on above: Result Comment: FEMA LE: Follicular: 1.4 - 18.1 mIU/mL Midcycle: 3.4 - 33.4 mIU/mL Luteal: 1.5 - 9.1 mIU/mL Post Menopause: 23.0 - 116.3 mIU/mL MALE: 1.4 - 18.1 mIU/mL Performed By: #### L 3100.5040, L100.0100, L500.4050, L400.7600, L3100.5055, L3100.5030 ####[facility] [address] [place], [address] LH 60.9 mIU/mL Normal [facility] Comment on above: Result Comment: FEMA LE: Follicular: 1.9-12.5 mIU/mL Midcycle: 8.7-76.3 mIU/mL Luteal: 0.5-16.9 mIU/mL Post Menopause: 15.9-54.0 mIU/mL MALE: 20-70 Years: 1.5-9.3 mIU/mL >70 Years: 3.1-34.6 mIU/mL Performed By: #### L 3100.5040, L100.0100, L500.4050, L400.7600, L3100.5055, L3100.5030 ####[facility] [address] [place], [place], [id number] Glomerular filtration rate ( GFR) estimation/1.73 sq m using serum, plasma, or whole bOrdered By: Arnaud Borja on 12-25-2024 GFR/1.73 sq M.predicted among non-blacks MDRD (S/P/Bld) [Vol rate/Area] 88 mL/min/{1.73_m2} >60 [facility] Comment on above: mL/min/1.73m2 CKD-EP I Creatinine Equation (2020) Hematocrit Auto (Bld) [Volum e fraction]Ordered By: Arnaud Borja on 12-25-2024 Hematocrit (Bld) [Volume fraction] 36.2 % Low 37-47 [facility] Hemoglobin measurementOrdere d By: Arnaud Borja on 12-25-2024 Hemoglobin (Bld) [Mass/Vol] 12.3 g/dL 12.0-15.0 [facility] Immature granulocytes/100 WB C Auto (Bld)Ordered By: Arnaud Borja on 12-25-2024 Immature granulocytes/100 WBC (Bld) 0.200 % 0.0-0.9 [facility] Comment on above: IG% - Immature Granu locytes (promyelocytes, myelocytes and metamyelocytes) > 1% indicates that a LEFT SHIFT is Present. LH ser/plasOrdered By: Pastor Borja on 12-25-2024 Lutropin Qn 60.9 m[IU]/mL [facility] Comment on above: FEMALE:Follicular: 1 .9-12.5 mIU/mLMidcycle: 8.7-76.3 mIU/mLLuteal: 0.5-16.9 mIU/mLPost Menopause: 15.9-54.0 mIU/mLMALE:20-70 Years: 1.5-9.3 mIU/mL>70 Years: 3.1-34.6 mIU/mL Laboratory - Chemistry and C hemistry - challengeOrdered By: Arnaud Borja on 12-25-2024 AST [Catalytic activity/Vol] 27 U/L <32 [facility] MCV (mean corpuscular volume ) determinationOrdered By: Arnaud Borja on 12-25-2024 MCV (RBC) [Entitic vol] 85.4 fL 81-99 [facility] Mean corpuscular hemoglobin (MCH) determinationOrdered By: Arnaud Borja on 12-25-2024 MCH (RBC) [Entitic mass] 29.0 pg 27.0-32.0 [facility] Mean corpuscular hemoglobin concentration (MCHC) determinationOrdered By: Arnaud Borja on 12-25-2024 MCHC (RBC) [Mass/Vol] 34.0 g/dL 32-36 [facility] Mean platelet volume determi nationOrdered By: Arnaud Borja on 12-25-2024 Platelet mean volume (Bld) [Entitic vol] 11.0 fL 6.2-12.0 [facility] Monocyte percentageOrdered B y: Arnaud Borja on 12-25-2024 Monocytes/100 WBC (Bld) 7.9 % 0-10 [facility] Neutrophil percentageOrdered By: Arnaud Borja on 12-25-2024 Neutrophils/100 WBC (Bld) 48.4 % 47-70 [facility] Nucleated red blood cell per centageOrdered By: Arnaud Borja on 12-25-2024 Nucleated RBC/100 WBC (Bld) [Ratio] 0 % 0-5 [facility] Oncology Visit Reporton 11-29 Oncology Visit Report [facility] [address] [place] [address] OFFICE VISIT Date of Service: 12/25/24 1555 MR#: [id number] Acct: [id number] Name: HOWARD HALL Rep #: [id number] : 1980 From: Arnaud Borja MD Age/Sex: 44/F Location: [facility] Status: Signed with Addenda ADDENDUM by [...] in 100% of tumor cells PROGESTERONE RECEPTOR (NC): Positive, strong immunoreactivity in 100% of tumor [...] dense b (more content not included)... Normal [facility] Platelet countOrdered By: Jluis Borja on 12-25-2024 Platelets (Bld) [#/Vol] 258 10*3/uL 150-450 [facility] Potassium measurement (mass/ volume)Ordered By: Arnaud Borja on 12-25-2024 Potassium (Unsp spec) [Mass/Vol] 4.0 mmol/L 3.3-5.1 [facility] ,Urineon 12-25-2024 Beta HCG ( test) Ql (U) Negative Normal [facility] Comment on above: Result Comment: [phone] Very dilute urine specimens, as indicated by a low specific gravity, may not contain site safety representative levels of hCG. If is still suspected, a first morning urine specimen should be collected 48 hours later and tested. Performed By: #### L 3100.5040, L100.0100, L500.4050, L400.7600, L3100.5055, L3100.5030 #### [facility] [facility] [address] [place], [address] RBC Auto (Bld) [#/Vol]Ordere d By: Arnaud Borja on 12-25-2024 RBC (Bld) [#/Vol] 4.24 10*6/uL 4.2-5.4 [facility] Serum creatinine measurement (mass/volume)Ordered By: Arnaud Borja on 12-25-2024 Creatinine [Mass/Vol] 0.84 mg/dL 0.70-1.20 [facility] Serum globulin measurementOr dered By: Arnaud Borja on 12-25-2024 Globulin (S) [Mass/Vol] 3.0 g/dL 2.2-4.2 [facility] Serum glucose measurement (m ass/volume)Ordered By: Arnaud Borja on 12-25-2024 Glucose [Mass/Vol] 95 mg/dL 70-99 [facility] Serum or plasma alanine rainey otransferase (ALT) measurementOrdered By: Arnaud Borja on 12-25-2024 ALT [Catalytic activity/Vol] 24 U/L <35 [facility] Serum or plasma albumin ceasar urement (mass/volume)Ordered By: Arnaud Borja on 12-25-2024 Albumin [Mass/Vol] 4.6 g/dL 3.5-5.0 [facility] Serum or plasma albumin/glob ulin mass ratioOrdered By: Arnaud Borja on 12-25-2024 Albumin/Globulin [Mass ratio] 1.5 {ratio} 0.9-2.4 [facility] Serum or plasma alkaline dasia sphatase measurementOrdered By: Arnaud Borja on 12-25-2024 ALP [Catalytic activity/Vol] 98 U/L 35-104 [facility] Serum or plasma calcium ceasar urement (mass/volume)Ordered By: Arnaud Borja on 12-25-2024 Calcium [Mass/Vol] 9.7 mg/dL 7.6-11.0 [facility] Serum or plasma urea nitroge n measurement (mass/volume)Ordered By: Arnaud Borja on 12-25-2024 Urea nitrogen [Mass/Vol] 14 mg/dL 4-19 [facility] Sodium levelOrdered By: Meir Borja on 12-25-2024 Sodium [Moles/Vol] 141 mmol/L 133-145 [facility] Total proteinOrdered By: Charanjit Borja on 12-25-2024 Protein [Mass/Vol] 7.5 g/dL 5.9-8.4 [facility] Urine testOrdered By: Arnaud Borja on 12-25-2024 HCG ( test) Ql (U) Negative [facility] Comment on above: [id number] dilute ur ine specimens, as indicated by a low specificgravity, may not contain site safety representative levels of hCG. If is still suspected, a first morning urinespecimen should be collected 48 hours later and tested. White blood cell (WBC) count Ordered By: Arnaud Borja on 12-25-2024 WBC (Bld) [#/Vol] 6.1 10*3/uL 4.4-11.0 [facility] Surgical pathology reportOrd ered By: Rain Bruce on 12-11-2024 Surgical pathology study [facility] Immunohistochemical Stainson 12-10-2024 Immunohistochemical Stains Patient Age/Sex Location Account Attending Physician HOWARD HALL 43/F LABSPEC [id number] Dr. Feliciano Castellon MD Specimen: [id number] Received: 12/10/24 Status: ARABELLAChastity Ángel Num: [id number] Spec Type: BREAST BX Subm Dr: Dr. [...] in 100% of tumor cells PROGESTERONE RECEPTOR (NC): Positive, strong immunoreactivity in 100% of tumor cells HER2/DIEGO IHC: Positive, (Score 3+) KI67 IHC: 40% B. Left axilla, lymph node, biopsy: * Metastatic mammary carcinoma (See note) Note: The pancytokeratin stain is positive supporting the diagnosis. MICROSCOPIC DESCRIPTION Slides are reviewed. All controls show appropriate reactivity. Estrogen receptor (ER) and progesterone receptor (NC) are evaluated by manual quantitative immunohistochemistry on formalin-fixed (for >6 hours and <72 hours if possible), paraffin-embedded tissue, using clone [id number] ([place]) for ER, clone NC [id number] ([place]) for NC, and polymer detection system on a [place] auto-stainer. For both ER and NC, the percentage of positive tumor cell nuclei is determined; <1% is considered negative, and =1% positive. For both ER and NC, the overall intensity of staining in the tumor is categorized as weak, moderate, or strong. HER2 protein expression is evaluated by manual quantitative immunohistochemistry on formalin-fixed (for >6 hours and <72 hours if possible), paraffin-embedded tissue, using FDA approved clone [id number] (rabbit monoclonal, [place]) on a [place] autostainer, and scored according to ASCO/CAP criteria. Membrane staining of tumor cells is evaluated and graded as follows, as readily appreciated using a low power objective. 0 (negative): no staining, or Patient Age/Sex Location Account Attending Physician HOWARD HLAL 43/F LABSPEC [id number] Dr. Feliciano Castellon MD membrane staining that [...] developed and their performance characteristics determined by [facility]. They may not have been cleared [...] of fibro (more content not included)... Normal [facility] Comment on above: Performed By: #### P [facility] ####[facility] [address] [place], [address] Surgery Visit Reporton 12-10 Surgery Visit Report [facility] [address] [place] [address] OFFICE VISIT Date of Service: 12/10/24 MR#: [id number] Acct: [id number] Name: HOWARD HALL Rep #: [id number] : 1980 Provider: Dr. Feliciano miles MD Age/Sex: 43/F Location: [facility] Status: Signed Intake Intake Visit Reasons: [...] well. Alert Kalani Yes Biopsy Breast Biopsy: 56167 US Guidance Lymphnode Biopsy: 99103 Lymphnode Procedure Time Out Time Out Informed [...] I get them. 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 Normal [facility] Surgery Visit Reporton 12-09 Surgery Visit Report [facility] [address] [place] [address]. [address] [place] [address] OFFICE VISIT Date of Service: 12/09/24 MR#: [id number] Acct: [id number] Name: HOWARD HALL Falguni Rep #: [id number] : 1980 Provider: Dr. Feliciano miles MD Age/Sex: 43/F Location: [facility] Status: Signed Intake Vital Signs 08/15/17 21:48 [...] No Known Allergies Allergy (Verified 12/09/24 14:02) [facility] Medical History (Updated 12/09/24 @ [...] for further biopsy. Feliciano Castellon MD Pager: [facility] [address] [place] [address], [address] [place] [phone] Office: Medications: Discontinued ibuprofen (more content not included)... Normal [facility] Breast imaging reportOrdered By: Elsy Sarah on 12-05-2024 Study report [facility] Services [address] [place], [place] [id number] DIAG MAMM W/CAD, BILAT MR#: [id number] Acct: [id number] Name: HOWARD HALL Rep #: [id number] : 1980 F 43 From: Kamilah Sarah MD PCP: Dr. David Ghotra, Status: [facility] CLI Study:DIAG MAMM W/CAD, BILAT Date of Exam: 12/04/24 Exam# [id number] Ordering Dr: David Ghotra DO EXAM: BREAST [...] be mailed to the patient. Reading Location: [facility] CC: Dr. David Ghotra, ~ Mat Sewer: Signed [facility] Study report [facility] [address] [place] [address] Bilat Brst Mika Stand Alone MR#: [id number] Acct: [id number] Name: HOWARD HALL Rep #: [id number] : 1980 F 43 From: Kamilah Sarah MD PCP: Dr. David Ghotra DO Status: REG CLI Study:Bilat Brst Mika Stand Alone Date of Exa m: 12/04/24 Exam# [id number] Ordering Dr: David Ghotra DO EXAM: BREAST [...] be mailed to the patient. Reading Location: [id number] CC: Dr. David Ghotra, DO ~ Mat Sewer: Signed [facility] Bilat Brst Mika Stand Aloneo n 12-04-2024 [facility] [address] [place], [place] [address] Bilat Brst Mika Stand Alone MR#: [id number] Acct: [id number] Name: HOWARD HALL Rep #: [id number] : 1980 F 43 From: Elsy Sarah MD PCP: Dr. David Ghotra DO Status: REG CLI Study: Bilat Brst Mika Stand Alone Date of Exam: 02/21 Exam# [id number] Ordering Dr: David Ghotra DO EXAM: BREAST [...] be mailed to the patient. Reading Location: [id number] CC: Dr. David Ghotra DO Mat Sewer: Signed Normal [facility] Breast Limited Unilateralon 12-04-2024 Breast Limited Unilateral [facility] Services [address] [place] [address] Breast Limited Unilateral MR#: [id number] Acct: [id number] Name: VICKEYHOWARD WILLIAM Falguni Rep #: [id number] : 1980 F 43 From: Elsy Sarah MD PCP: Dr. David Ghotra, DO Status: REG CLI Study: Breast Limited Unilateral Date of Exam: Exam# [id number] Ordering Dr: David Ghotra DO EXAM: BREAST [...] be mailed to the patient. Reading Location: [facility] CC: Dr. David Ghotra DO Mat Sewer: Signed Normal [facility] DIAG MAMM W/CAD, BILATon DIAG MAMM W/CAD, BILAT [facility] Imaging Services [address] [place], [place] [id number] DIAG MAMM W/CAD, BILAT MR#: [id number] Acct: [id number] Name: VICKEYHOWARD WILLIAM Falguni Rep #: [id number] : 1980 F 43 From: Elsy Sarah MD PCP: Dr. David Ghotra DO Status: REG CLI Study: DIAG MAMM W/CAD, BILAT Date of Exam: 12/04/24 Exam# [id number] Ordering Dr: David Ghotra DO EXAM: BREAST [...] be mailed to the patient. Reading Location: [id number] CC: Dr. David Ghotra, Mat Sewer: Signed Normal [facility] Quantiferon TB-Gold+on 11-16 QFT MITOGEN DANIEL > 10.00 Normal . [facility] Comment on above: Performed By: #### L 500.2500, L501.5200, L100.0100 #### [facility] [address] [place], [address] QFT NIL VALUE 0.05 IU/mL Normal . [facility] Comment on above: Performed By: #### L 500.2500, L501.5200, L100.0100 #### [facility] [address] [place], [address] QFT TB GOLD+ Comment Normal . [facility] Comment on above: Result Comment: Oswaldo tiFERON-TB [...] By: #### L 500.2500, L501.5200, L100.0100 #### [facility] [address] [place], [address] QFT TB POS CRIT Negative Normal Negative [facility] Comment on above: Result Comment: No r [...] interferon gamma. Chemiluminescence immunoassay methodology Performed at: [employer] [id number] Floor Sanding Machine Operator: Mendez Parmar PhD, Phone: [phone] Performed By: #### L 500.2500, L501.5200, L100.0100 #### [facility] [address] [place], [address] QFT TB1+ AG DANIEL 0.10 IU/mL Normal . [facility] Comment on above: Performed By: #### L 500.2500, L501.5200, L100.0100 #### [facility] [address] [place], [address] QFT TB2+ AG DANIEL 0.10 IU/mL Normal . [facility] Comment on above: Performed By: #### L 500.2500, L501.5200, L100.0100 #### [facility] [address] [place], [address] Absolute lymphocyte countOrd ered By: David Ghotra on 11-14-2024 Lymphocytes Auto (Unsp spec) [#/Vol] 1.72 10*3/uL 0.83-4.51 [facility] Absolute neutrophil countOrd ered By: David Ghotra on 11-14-2024 Neutrophils (Bld) [#/Vol] 2.6 10*3/uL 2.0-7.7 [facility] Anion gap in Serum or Plasma Ordered By: David Ghotra on 04-17-2025 Anion gap [Moles/Vol] 13 mmol/L 5-15 [facility] Automated lymphocyte count a s percentage of total leukocytesOrdered By: David Ghotra on 11-14-2024 Lymphocytes/100 WBC Auto (Unsp spec) 35.2 % - [facility] BUN/creatinine ratioOrdered By: David Ghotra on 11-14-2024 Urea nitrogen/Creatinine [Mass ratio] 14.9 mg/mg 10- [facility] Basophil percentageOrdered B y: David Ghotra on 11-14-2024 Basophils/100 WBC (Bld) 0.6 % 0-1 [facility] Bilirubin, totalOrdered By: David RiceAlec on 11-14-2024 Bilirubin [Mass/Vol] 0.27 mg/dL 0.00-1.30 [facility] CBC W/Diff, Automatedon 10-29 Absolute Lymph 1.72 X10 3/uL Normal 0.83-4.51 [facility] Comment on above: Performed By: #### L 500.2500, L501.5200, L100.0100 #### [facility] [address] [place], [address] Absolute Neut 2.6 X10 3/uL Normal 2.0-7.7 [facility] Comment on above: Performed By: #### L 500.2500, L501.5200, L100.0100 #### [facility] [address] [place], [address] Basophils/100 WBC (Bld) 0.6 % Normal 0-1 [facility] Comment on above: Performed By: #### L 500.2500, L501.5200, L100.0100 #### [facility] [address] [place], [address] Eosinophils/100 WBC (Bld) 3.3 % Normal 0-5 [facility] Comment on above: Performed By: #### L 500.2500, L501.5200, L100.0100 #### [facility] [address] [place], [address] Erythrocyte distribution width (RBC) [Ratio] 12.0 % Normal 11.6-14.6 [facility] Comment on above: Performed By: #### L 500.2500, L501.5200, L100.0100 #### [facility] [address] [place], [address] Hematocrit (Bld) [Volume fraction] 38.0 % Normal 37-47 [facility] Comment on above: Performed By: #### L 500.2500, L501.5200, L100.0100 #### [facility] [address] [place], [address] Hemoglobin (Bld) [Mass/Vol] 12.8 g/dL Normal 12.0-15.0 [facility] Comment on above: Performed By: #### L 500.2500, L501.5200, L100.0100 #### [facility] [address] [place], [address] IG% 0.200 Normal 0.0-0.9 [facility] Comment on above: Result Comment: IG% - Immature Granulocytes (promyelocytes, myelocytes and metamyelocytes) > 1% indicates that a LEFT SHIFT is Present. Performed By: #### L 500.2500, L501.5200, L100.0100 #### [facility] [address] [place], [address] Lymphocytes/100 WBC (Bld) 35.2 % Normal 19-41 [facility] Comment on above: Performed By: #### L 500.2500, L501.5200, L100.0100 #### [facility] [address] [place], [address] MCH (RBC) [Entitic mass] 28.9 pg Normal 27.0-32.0 [facility] Comment on above: Performed By: #### L 500.2500, L501.5200, L100.0100 #### [facility] [address] [place], [address] MCHC (RBC) [Mass/Vol] 33.7 g/dL Normal 32-36 [facility] Comment on above: Performed By: #### L 500.2500, L501.5200, L100.0100 #### [facility] [address] [place], [address] MCV (RBC) [Entitic vol] 85.8 fL Normal 81-99 [facility] Comment on above: Performed By: #### L 500.2500, L501.5200, L100.0100 #### [facility] [address] [place], [address] Monocytes/100 WBC (Bld) 7.8 % Normal 0-10 [facility] Comment on above: Performed By: #### L 500.2500, L501.5200, L100.0100 #### [facility] [address] [place], [address] Neutrophils/100 WBC (Bld) 52.9 % Normal 47-70 [facility] Comment on above: Performed By: #### L 500.2500, L501.5200, L100.0100 #### [facility] [address] [place], [address] Nucleated RBC (Bld) [#/Vol] 0 10*3/uL Normal 0-5 [facility] Comment on above: Performed By: #### L 500.2500, L501.5200, L100.0100 #### [facility] [address] [place], [address] Platelet mean volume (Bld) [Entitic vol] 11.1 fL Normal 6.2-12.0 [facility] Comment on above: Performed By: #### L 500.2500, L501.5200, L100.0100 #### [facility] [address] [place], [address] Platelets (Bld) [#/Vol] 259 10*3/uL Normal 150-450 [facility] Comment on above: Performed By: #### L 500.2500, L501.5200, L100.0100 #### [facility] [address] [place], [address] RBC (Bld) [#/Vol] 4.43 10*6/uL Normal 4.2-5.4 [facility] Comment on above: Performed By: #### L 500.2500, L501.5200, L100.0100 #### [facility] [address] [place], [address] RDW SD 37.8 fl Normal 35.1-43.9 [facility] Comment on above: Performed By: #### L 500.2500, L501.5200, L100.0100 #### [facility] [address] [place], [address] WBC (Bld) [#/Vol] 4.9 10*3/uL Normal 4.4-11.0 [facility] Comment on above: Performed By: #### L 500.2500, L501.5200, L100.0100 #### [facility] [address] [place], [address] Carbon dioxide, total [Moles /volume] in Central venous bloodOrdered By: David Ghotra on 11-14-2024 CO2 [Moles/Vol] 24.8 mmol/L 21.0-32.0 [facility] Chloride assayOrdered By: Jluis Ghotra on 11-14-2024 Chloride [Moles/Vol] 103 mmol/L 98-108 [facility] Comprehensive Metabolic Prof ilon 11-14-2024 Albumin [Mass/Vol] 4.5 g/dL Normal 3.5-5.0 [facility] Comment on above: Performed By: #### L 500.2500, L501.5200, L100.0100 #### [facility] [address] [place], [address] Albumin/Globulin [Mass ratio] 1.5 {ratio} Normal 0.9-2.4 [facility] Comment on above: Performed By: #### L 500.2500, L501.5200, L100.0100 #### [facility] [address] [place], [address] ALK PHOS 96 U/L Normal 35-104 [facility] Comment on above: Performed By: #### L 500.2500, L501.5200, L100.0100 #### [facility] [address] [place], [address] ALT [Catalytic activity/Vol] 26 U/L Normal <=34 [facility] Comment on above: Performed By: #### L 500.2500, L501.5200, L100.0100 #### [facility] [address] [place], [address] AST [Catalytic activity/Vol] 30 U/L Normal <=31 [facility] Comment on above: Performed By: #### L 500.2500, L501.5200, L100.0100 #### [facility] [address] [place], [address] Bilirubin [Mass/Vol] 0.27 mg/dL Normal 0.00-1.30 [facility] Comment on above: Performed By: #### L 500.2500, L501.5200, L100.0100 #### [facility] [address] [place], [address] BUN/CRE 14.9 RATIO Normal 10-20 [facility] Comment on above: Performed By: #### L 500.2500, L501.5200, L100.0100 #### [facility] [address] [place], [address] Calcium [Mass/Vol] 10.0 mg/dL Normal 7.6-11.0 [facility] Comment on above: Performed By: #### L 500.2500, L501.5200, L100.0100 #### [facility] [address] [place], [address] Chloride [Moles/Vol] 103 mmol/L Normal 98-108 [facility] Comment on above: Performed By: #### L 500.2500, L501.5200, L100.0100 #### [facility] [address] [place], [address] CO2 [Moles/Vol] 24.8 mmol/L Normal 21.0-32.0 [facility] Comment on above: Performed By: #### L 500.2500, L501.5200, L100.0100 #### [facility] [address] [place], [address] Creatinine [Mass/Vol] 0.89 mg/dL Normal 0.70-1.20 [facility] Comment on above: Performed By: #### L 500.2500, L501.5200, L100.0100 #### [facility] [address] [place], [address] GAP 13 Normal 5-15 [facility] Comment on above: Performed By: #### L 500.2500, L501.5200, L100.0100 #### [facility] [address] [place], [address] GFR/1.73 sq M.predicted among non-blacks MDRD (S/P/Bld) [Vol rate/Area] 82 mL/min/{1.73_m2} Normal >60 [facility] Comment on above: Result Comment: mL/m in/1.73m2 CKD-EPI Creatinine Equation (2020) Performed By: #### L 500.2500, L501.5200, L100.0100 #### [facility] [address] [place], [address] Globulin (S) [Mass/Vol] 3.0 g/dL Normal 2.2-4.2 [facility] Comment on above: Performed By: #### L 500.2500, L501.5200, L100.0100 #### [facility] [address] [place], [address] Glucose [Mass/Vol] 110 mg/dL High 70-99 [facility] Comment on above: Performed By: #### L 500.2500, L501.5200, L100.0100 #### [facility] [address] [place], [address] Potassium [Moles/Vol] 3.7 mmol/L Normal 3.3-5.1 [facility] Comment on above: Performed By: #### L 500.2500, L501.5200, L100.0100 #### [facility] [address] [place], [address] Sodium [Moles/Vol] 141 mmol/L Normal 133-145 [facility] Comment on above: Performed By: #### L 500.2500, L501.5200, L100.0100 #### [facility] [address] [place], [address] T PROT 7.4 g/dL Normal 5.9-8.4 [facility] Comment on above: Performed By: #### L 500.2500, L501.5200, L100.0100 #### [facility] [address] [place], [address] Urea nitrogen [Mass/Vol] 13 mg/dL Normal 4-19 [facility] Comment on above: Performed By: #### L 500.2500, L501.5200, L100.0100 #### [facility] [address] [place], [address] Eosinophil percentageOrdered By: David Ghotra on 11-14-2024 Eosinophils/100 WBC (Bld) 3.3 % 0-5 [facility] Erythrocyte distribution wid th ratioOrdered By: David Ghotra on 11-14-2024 Erythrocyte distribution width (RBC) [Ratio] 12.0 % 11.6-14.6 [facility] Erythrocyte distribution wid th standard deviationOrdered By: David Ghotra on 11-14-2024 Erythrocyte distribution width (RBC) [Ratio] 37.8 fl 35.1-43.9 [facility] Glomerular filtration rate ( GFR) estimation/1.73 sq m using serum, plasma, or whole bOrdered By: David Ghotra on 11-14-2024 GFR/1.73 sq M.predicted among non-blacks MDRD (S/P/Bld) [Vol rate/Area] 82 mL/min/{1.73_m2} >60 [facility] Comment on above: mL/min/1.73m2 CKD-EP I Creatinine Equation (2020) Hematocrit Auto (Bld) [Volum e fraction]Ordered By: David Ghotra on 11-14-2024 Hematocrit (Bld) [Volume fraction] 38.0 % 37-47 [facility] Hemoglobin measurementOrdere d By: Davdi Ghotra on 11-14-2024 Hemoglobin (Bld) [Mass/Vol] 12.8 g/dL 12.0-15.0 [facility] Immature granulocytes/100 WB C Auto (Bld)Ordered By: David Ghotra on 11-14-2024 Immature granulocytes/100 WBC (Bld) 0.200 % 0.0-0.9 [facility] [facility] Comment on above: IG% - Immature Granu locytes (promyelocytes, myelocytes and metamyelocytes) > 1% indicates that a LEFT SHIFT is Present. Laboratory - Chemistry and C hemistry - challengeOrdered By: David Ghotra on 11-14-2024 AST [Catalytic activity/Vol] 30 U/L <32 [facility] MCV (mean corpuscular volume ) determinationOrdered By: David Ghotra on 11-14-2024 MCV (RBC) [Entitic vol] 85.8 fL 81-99 [facility] Mean corpuscular hemoglobin (MCH) determinationOrdered By: David Ghotra on 11-14-2024 MCH (RBC) [Entitic mass] 28.9 pg 27.0-32.0 [facility] Mean corpuscular hemoglobin concentration (MCHC) determinationOrdered By: David Ghotra on 11-14-2024 MCHC (RBC) [Mass/Vol] 33.7 g/dL 32-36 [facility] Mean platelet volume determi nationOrdered By: David Ghotra on 11-14-2024 Platelet mean volume (Bld) [Entitic vol] 11.1 fL 6.2-12.0 [facility] Monocyte percentageOrdered B y: David Ghotra on 11-14-2024 Monocytes/100 WBC (Bld) 7.8 % 0-10 [facility] Neutrophil percentageOrdered By: David Ghotra on 11-14-2024 Neutrophils/100 WBC (Bld) 52.9 % 47-70 [facility] Nucleated red blood cell per centageOrdered By: David Ghotra on 11-14-2024 Nucleated RBC/100 WBC (Bld) [Ratio] 0 % 0-5 [facility] Platelet countOrdered By: Jluis Ghotra on 11-14-2024 Platelets (Bld) [#/Vol] 259 10*3/uL 150-450 [facility] Potassium measurement (mass/ volume)Ordered By: David Ghotra on 11-14-2024 Potassium (Unsp spec) [Mass/Vol] 3.7 mmol/L 3.3-5.1 [facility] Qualitative QuantiFERON-TB g old in tube testOrdered By: David Ghotra on 11-14-2024 M. tuberculosis tuberculin stim IFN-g Ql (Bld) 0.10 IU/mL . [facility] RBC Auto (Bld) [#/Vol]Ordere d By: David Ghotra on 11-14-2024 RBC (Bld) [#/Vol] 4.43 10*6/uL 4.2-5.4 [facility] Serum creatinine measurement (mass/volume)Ordered By: David Ghotra on 11-14-2024 Creatinine [Mass/Vol] 0.89 mg/dL 0.70-1.20 [facility] Serum globulin measurementOr dered By: David Ghotra on 11-14-2024 Globulin (S) [Mass/Vol] 3.0 g/dL 2.2-4.2 [facility] Serum glucose measurement (m ass/volume)Ordered By: David Ghotra on 11-14-2024 Glucose [Mass/Vol] 110 mg/dL High 70-99 [facility] Serum or plasma alanine rainey otransferase (ALT) measurementOrdered By: David Ghotra on 11-14-2024 ALT [Catalytic activity/Vol] 26 U/L <35 [facility] Serum or plasma albumin ceasar urement (mass/volume)Ordered By: David Ghotra on 11-14-2024 Albumin [Mass/Vol] 4.5 g/dL 3.5-5.0 [facility] Serum or plasma albumin/glob ulin mass ratioOrdered By: David Ghotra on 11-14-2024 Albumin/Globulin [Mass ratio] 1.5 {ratio} 0.9-2.4 [facility] Serum or plasma alkaline dasia sphatase measurementOrdered By: David Ghotra on 11-14-2024 ALP [Catalytic activity/Vol] 96 U/L 35-104 [facility] Serum or plasma calcium ceasar urement (mass/volume)Ordered By: David Ghotra on 11-14-2024 Calcium [Mass/Vol] 10.0 mg/dL 7.6-11.0 [facility] Serum or plasma urea nitroge n measurement (mass/volume)Ordered By: David Ghotra on 11-14-2024 Urea nitrogen [Mass/Vol] 13 mg/dL 4-19 [facility] Sodium levelOrdered By: David Ghotra on 11-14-2024 Sodium [Moles/Vol] 141 mmol/L 133-145 [facility] TSH DL <= 0.005 mIU/L QnOrde red By: David Ghotra on 11-14-2024 TSH Qn 1.770 uIU/mL 0.300-4.200 [facility] Thyroid Stim Hormone (TSH)on 11-14-2024 TSH 1.770 uIU/mL Normal 0.300-4.200 [facility] Comment on above: Performed By: #### L 500.2500, L501.5200, L100.0100 #### [facility] Laboratory [address] [place], [address] Total proteinOrdered By: Ana Ghotra on 11-14-2024 Protein [Mass/Vol] 7.4 g/dL 5.9-8.4 [facility] White blood cell (WBC) count Ordered By: David Ghotra on 11-14-2024 WBC (Bld) [#/Vol] 4.9 10*3/uL 4.4-11.0 [facility] DIAG W MIKA BILon 2021 [facility] DIAG W MIKA AJ * * *Final Report* * * DATE OF EXAM: Apr 20 2022 3:53PM WRW [id number] - [facility] DIAG W MIKA AJ / PROCEDURE REASON: multiple diagnoses * * * * Physician Interpretation * * * * RESULT: #[id number] - [facility] DIAG W MIKA AJ #[id number] - [facility] BREAST [facility] BILATERAL DIGITAL DIAGNOSTIC MAMMOGRAM TOMOSYNTHESIS WITH [...] exams dated: 05/03/2016 mammogram, 11/01/2016 mammogram - [facility], and 04/20/2016 mammogram - [facility]. The tissue of both breasts [...] exams dated: 05/03/2016 mammogram, 11/01/2016 mammogram - [facility], and 04/20/2016 mammogram - [facility]. Real-time ultrasound of the left [...] Health, Family Medicine, and Medical/Surgical Oncology, the [facility] has carefully reviewed the data and reached [...] their providers when to stop screening mammograms. Clinical Informatics Director(s): Michelle Barber, [facility]; Anayeli Oliver RT(R)(M), [facility] OVERALL STUDY BIRADS: 1 Negative Mat Sewer: Arpita Transcribe Date/Time: Apr 20 2022 3:38P Dictated by: BEREKET GANDHI MD This examination was interpreted and the report reviewed and electronically signed by: BEREKET GANDHI MD on Apr 20 2022 4:35PM EST [id number] Normal [facility] US BREAST LTD LTon 04-20 [facility] US BREAST LTD LT * * *Final Report* * * DATE OF EXAM: Apr 20 2022 4:11PM WRU [id number] - [facility] US BREAST LTD LT / PROCEDURE REASON: multiple diagnoses * * * * Physician Interpretation * * * * #[id number] - [facility] SAEED BEAN AJ #[id number] - [facility] US BREAST LTD LT BILATERAL DIGITAL [...] exams dated: 05/03/2016 mammogram, 11/01/2016 mammogram - [facility], and 04/20/2016 mammogram - [facility]. The tissue of both breasts [...] exams dated: 05/03/2016 mammogram, 11/01/2016 mammogram - [facility], and 04/20/2016 mammogram - [facility]. Real-time ultrasound of the left [...] Health, Family Medicine, and Medical/Surgical Oncology, the [facility] has carefully reviewed the data and reached [...] their providers when to stop screening mammograms. Clinical Informatics Director(s): Michelle Barber, [facility]; RT Gwendolyn(R)(M), [facility] OVERALL STUDY BIRADS: 1 Negative Mat Sewer: Arpita Transcribe Date/Time: Apr 20 2022 3:38P Dictated by : BEREKET GANDHI MD This examination was interpreted and the report reviewed and electronically signed by: BEREKET GANDHI MD on Apr 20 2022 4:35PM EST [id number] Normal [facility] CNOVon 03-01-2022 CNOV Office Visit (OBGYWM ) -- HOWARD HALL ([id number]) 1980 F Date Time Provider Department 03/01/22 [...] No Caffeine use Yes 1-2 cups/day Last [id number] normal Any previous breast surgery No Any [...] 1 tablet by mouth once daily. - Gskebbft-Yh-Yae-Fe-FA ( VITAMIN) tab Take 1 tablet by [...] Diagnosis:Breast pain [N64.4] Order(s):US BREAST LTD LT [2536811] Order #: [id number] FUTURE YARELY DIAGNOSTIC BILAT [[id number]] Order #: [id number] FUTURE Prescriptions as of 03/01/2022 - citalopram [...] 1 tablet by mouth once daily. - Gfatsvcu-Rt-Zgc-Fe-FA ( VITAMIN) tab (Discontinued) Take 1 tablet by mouth. - IRON, FERROUS SULFATE, ORAL (Discontinued) Take 27 mg by mouth once daily. Encounter Status:Closed by FAITH CHAVEZ on 03/01/22 Normal [facility] Vital Signs Date Time Vital Sign Value Performing Clinician Pascalei clau 05-07-2025 09:10-0400 Body height 165.[address] David Ghotra DO Work Phone: [facility] 05-07-2025 09:06-0400 Body mass index (BMI) [Ratio] 23.8 kg/m2 Dr. David Ghotra DO Work Phone: [facility] 05-07-2025 09:06-0400 Body temperature 97.5 [degF] Dr. David Ghotra DO Work Phone: [facility] 05-07-2025 09:06-0400 Body weight 64.[address] David Ghotra DO Work Phone: [facility] 05-07-2025 09:06-0400 Diastolic blood pressure 92 mm[Hg] Dr. David Ghotra DO Work Phone: [facility] 05-07-2025 09:06-0400 Heart rate 88 /min Dr. David Ghotra DO Work Phone: [facility] 05-07-2025 09:06-0400 Respiratory rate 18 /min Dr. David Ghotra DO Work Phone: [facility] 05-07-2025 09:06-0400 SaO2% (BldA) [Mass fraction] 99 % Dr. David Ghotra DO Work Phone: [facility] 05-07-2025 09:06-0400 Systolic blood pressure 146 mm[Hg] Dr. David Ghotra DO Work Phone: [facility] 04-03-2025 15:41-0400 Body temperature 98.5 [degF] Dr. David Ghotra DO Work Phone: [facility] 04-03-2025 15:41-0400 Diastolic blood pressure 94 mm[Hg] Dr. David Ghotra DO Work Phone: [facility] 04-03-2025 15:41-0400 Heart rate 116 /min Dr. David Ghotra DO Work Phone: [facility] 04-03-2025 15:41-0400 Respiratory rate 16 /min Dr. David Ghotra DO Work Phone: [facility] 04-03-2025 15:41-0400 SaO2% (BldA) [Mass fraction] 100 % Dr. David Ghotra DO Work Phone: [facility] 04-03-2025 15:41-0400 Systolic blood pressure 141 mm[Hg] Dr. David Ghotra DO Work Phone: [facility] 04-02-2025 09:52-0400 Body height 165.[address] David Ghotra DO Work Phone: [facility] 04-02-2025 09:52-0400 Body mass index (BMI) [Ratio] 24.7 kg/m2 Dr. David Ghotra DO Work Phone: [facility] 04-02-2025 09:52-0400 Body temperature 98.3 [degF] Dr. David Ghotra DO Work Phone: [facility] 04-02-2025 09:52-0400 Body weight 67.[address] David Ghotra DO Work Phone: [facility] 04-02-2025 09:52-0400 Diastolic blood pressure 103 mm[Hg] Dr. David Ghotra DO Work Phone: [facility] 04-02-2025 09:52-0400 Heart rate 81 /min Dr. David Ghotra DO Work Phone: [facility] 04-02-2025 09:52-0400 Respiratory rate 16 /min Dr. David Ghotra DO Work Phone: [facility] 04-02-2025 09:52-0400 SaO2% (BldA) [Mass fraction] 99 % Dr. David Ghotra DO Work Phone: [facility] 04-02-2025 09:52-0400 Systolic blood pressure 164 mm[Hg] Dr. David Ghotra DO Work Phone: [facility] 03-13-2025 15:17-0400 Body temperature 96.9 [degF] Dr. David Ghotra DO Work Phone: [facility] 03-13-2025 15:17-0400 Diastolic blood pressure 74 mm[Hg] Dr. David Ghotra DO Work Phone: [facility] 03-13-2025 15:17-0400 Heart rate 102 /min Dr. David Ghotra DO Work Phone: [facility] 03-13-2025 15:17-0400 Respiratory rate 16 /min Dr. David Ghotra DO Work Phone: [facility] 03-13-2025 15:17-0400 SaO2% (BldA) [Mass fraction] 99 % Dr. David Ghotra DO Work Phone: [facility] 03-13-2025 15:17-0400 Systolic blood pressure 139 mm[Hg] Dr. David Ghotra DO Work Phone: [facility] 03-12-2025 08:56-0400 Body height 165.[address] David Ghotra DO Work Phone: [facility] 03-12-2025 08:56-0400 Body mass index (BMI) [Ratio] 24.6 kg/m2 Dr. David Ghotra DO Work Phone: [facility] 03-12-2025 08:56-0400 Body temperature 98.5 [degF] Dr. David Ghotra DO Work Phone: [facility] 03-12-2025 08:56-0400 Body weight 67.[address] David Ghotra DO Work Phone: [facility] 03-12-2025 08:56-0400 Diastolic blood pressure 101 mm[Hg] Dr. David Ghotra DO Work Phone: [facility] 03-12-2025 08:56-0400 Heart rate 80 /min Dr. David Ghotra DO Work Phone: [facility] 03-12-2025 08:56-0400 Respiratory rate 18 /min Dr. David Ghotra DO Work Phone: [facility] 03-12-2025 08:56-0400 SaO2% (BldA) [Mass fraction] 99 % Dr. David Ghotra DO Work Phone: [facility] 03-12-2025 08:56-0400 Systolic blood pressure 153 mm[Hg] Dr. David Ghotra DO Work Phone: [facility] 02-20-2025 17:30-0400 Body temperature 97.2 [degF] Dr. David Ghotra DO Work Phone: [facility] 02-20-2025 17:30-0400 Diastolic blood pressure 57 mm[Hg] Dr. David Ghotra DO Work Phone: [facility] 02-20-2025 17:30-0400 Heart rate 72 /min Dr. David Ghotra DO Work Phone: [facility] 02-20-2025 17:30-0400 Respiratory rate 16 /min Dr. David Ghotra DO Work Phone: [facility] 02-20-2025 17:30-0400 SaO2% (BldA) [Mass fraction] 98 % Dr. David Ghotra DO Work Phone: [facility] 02-20-2025 17:30-0400 Systolic blood pressure 107 mm[Hg] Dr. David Ghotra DO Work Phone: [facility] 02-20-2025 15:17-0400 Body height 165.[address] David Ghotra DO Work Phone: [facility] 02-20-2025 15:17-0400 Body mass index (BMI) [Ratio] 23.8 kg/m2 Dr. David Ghotra DO Work Phone: [facility] 02-20-2025 15:17-0400 Body temperature 98.4 [degF] Dr. David Ghotra DO Work Phone: [facility] 02-20-2025 15:17-0400 Body weight 64.[address] David Ghotra DO Work Phone: [facility] 02-20-2025 15:17-0400 Diastolic blood pressure 75 mm[Hg] Dr. David Ghotra DO Work Phone: [facility] 02-20-2025 15:17-0400 Heart rate 99 /min Dr. David Ghotra DO Work Phone: [facility] 02-20-2025 15:17-0400 Respiratory rate 18 /min Dr. David Ghotra DO Work Phone: [facility] 02-20-2025 15:17-0400 SaO2% (BldA) [Mass fraction] 99 % Dr. David Ghotra DO Work Phone: [facility] 02-20-2025 15:17-0400 Systolic blood pressure 108 mm[Hg] Dr. David Ghotra DO Work Phone: [facility] 02-14-2025 15:43-0400 Body temperature 96.3 [degF] Dr. David Ghotra DO Work Phone: [facility] 02-14-2025 15:43-0400 Diastolic blood pressure 98 mm[Hg] Dr. David Ghotra DO Work Phone: [facility] 02-14-2025 15:43-0400 Heart rate 92 /min Dr. David Ghotra DO Work Phone: [facility] 02-14-2025 15:43-0400 Respiratory rate 16 /min Dr. David Ghotra DO Work Phone: [facility] 02-14-2025 15:43-0400 SaO2% (BldA) [Mass fraction] 97 % Dr. David Ghotra DO Work Phone: [facility] 02-14-2025 15:43-0400 Systolic blood pressure 152 mm[Hg] Dr. David Ghotra DO Work Phone: [facility] 02-13-2025 08:35-0400 Body height 165.[address] David Ghotra DO Work Phone: [facility] 02-13-2025 08:35-0400 Body mass index (BMI) [Ratio] 24.8 kg/m2 Dr. David Ghotra DO Work Phone: [facility] 02-13-2025 08:35-0400 Body temperature 98.3 [degF] Dr. David Ghotra DO Work Phone: [facility] 02-13-2025 08:35-0400 Body weight 67.[address] David Ghotra DO Work Phone: [facility] 02-13-2025 08:35-0400 Diastolic blood pressure 86 mm[Hg] Dr. David Ghotra DO Work Phone: [facility] 02-13-2025 08:35-0400 Heart rate 87 /min Dr. David Ghotra DO Work Phone: [facility] 02-13-2025 08:35-0400 Respiratory rate 16 /min Dr. David Ghotra DO Work Phone: [facility] 02-13-2025 08:35-0400 SaO2% (BldA) [Mass fraction] 96 % Dr. David Ghotra DO Work Phone: [facility] 02-13-2025 08:35-0400 Systolic blood pressure 128 mm[Hg] Dr. David Ghotra DO Work Phone: [facility] 02-05-2025 15:25-0400 Body height 165.[address] David Ghotra DO Work Phone: [facility] 02-05-2025 15:25-0400 Body mass index (BMI) [Ratio] 25 kg/m2 Dr. David Ghotra DO Work Phone: [facility] 02-05-2025 15:25-0400 Body weight 68.[address] David Ghotra DO Work Phone: [facility] 02-05-2025 15:25-0400 Diastolic blood pressure 86 mm[Hg] Dr. David Ghotra DO Work Phone: [facility] 02-05-2025 15:25-0400 Heart rate 101 /min Dr. David Ghotra DO Work Phone: [facility] 02-05-2025 15:25-0400 Respiratory rate 15 /min Dr. David Ghotra DO Work Phone: [facility] 02-05-2025 15:25-0400 Systolic blood pressure 149 mm[Hg] Dr. David Ghotra DO Work Phone: [facility] 01-23-2025 11:27-0400 Body height 165.[address] David Ghotra DO Work Phone: [facility] 01-23-2025 11:27-0400 Body mass index (BMI) [Ratio] 25.7 kg/m2 Dr. David Ghotra DO Work Phone: [facility] 01-23-2025 11:27-0400 Body temperature 97.7 [degF] Dr. David Ghotra DO Work Phone: [facility] 01-23-2025 11:27-0400 Body weight 70.[address] David Ghotra DO Work Phone: [facility] 01-23-2025 11:27-0400 Diastolic blood pressure 85 mm[Hg] Dr. David Ghotra DO Work Phone: [facility] 01-23-2025 11:27-0400 Heart rate 91 /min Dr. David Ghotra DO Work Phone: [facility] 01-23-2025 11:27-0400 Respiratory rate 18 /min Dr. David Ghotra DO Work Phone: [facility] 01-23-2025 11:27-0400 SaO2% (BldA) [Mass fraction] 96 % Dr. David Ghotra DO Work Phone: [facility] 01-23-2025 11:27-0400 Systolic blood pressure 146 mm[Hg] Dr. David Ghotra DO Work Phone: [facility] 01-08-2025 15:54-0400 Body temperature 97.3 [degF] Dr. David Ghotra DO Work Phone: [facility] 01-08-2025 15:54-0400 Diastolic blood pressure 90 mm[Hg] Dr. David Ghotra DO Work Phone: [facility] 01-08-2025 15:54-0400 Heart rate 100 /min Dr. David Ghotra DO Work Phone: [facility] 01-08-2025 15:54-0400 Respiratory rate 20 /min Dr. David Ghotra DO Work Phone: [facility] 01-08-2025 15:54-0400 SaO2% (BldA) [Mass fraction] 98 % Dr. David Ghotra DO Work Phone: [facility] 01-08-2025 15:54-0400 Systolic blood pressure 116 mm[Hg] Dr. David Ghotra DO Work Phone: [facility] 01-08-2025 14:02-0400 Body height 165.[address] David Ghotra DO Work Phone: [facility] 01-08-2025 14:02-0400 Body mass index (BMI) [Ratio] 24.2 kg/m2 Dr. David Ghotra DO Work Phone: [facility] 01-08-2025 14:02-0400 Body weight [address] David Ghotra DO Work Phone: [facility] 12-25-2024 16:04-0400 Body height 165.[address] David Ghotra DO Work Phone: [facility] 12-25-2024 16:04-0400 Body mass index (BMI) [Ratio] 24.5 kg/m2 Dr. David Ghotra DO Work Phone: [facility] 12-25-2024 16:04-0400 Body temperature 99.7 [degF] Dr. David Ghotra DO Work Phone: [facility] 12-25-2024 16:04-0400 Body weight 66.[address] David Ghotra DO Work Phone: [facility] 12-25-2024 16:04-0400 Diastolic blood pressure 104 mm[Hg] Dr. David Ghotra DO Work Phone: [facility] 12-25-2024 16:04-0400 Heart rate 90 /min Dr. David Ghotra DO Work Phone: [facility] 12-25-2024 16:04-0400 Respiratory rate 16 /min Dr. David Ghotra DO Work Phone: [facility] 12-25-2024 16:04-0400 SaO2% (BldA) [Mass fraction] 98 % Dr. David Ghotra DO Work Phone: [facility] 12-25-2024 16:04-0400 Systolic blood pressure 169 mm[Hg] Dr. David Ghotra DO Work Phone: [facility] 12-09-2024 14:01-0400 Body height 166.[address] David Ghotra DO Work Phone: [facility] 12-09-2024 14:01-0400 Body mass index (BMI) [Ratio] 24 kg/m2 Dr. David Ghotra DO Work Phone: [facility] 12-09-2024 14:01-0400 Body temperature 97.5 [degF] Dr. David Ghotra DO Work Phone: [facility] 12-09-2024 14:01-0400 Body weight 66.[address] David Ghotra DO Work Phone: [facility] 12-09-2024 14:01-0400 Diastolic blood pressure 92 mm[Hg] Dr. David Ghotra DO Work Phone: [facility] 12-09-2024 14:01-0400 Heart rate 93 /min Dr. David Ghotra DO Work Phone: [facility] 12-09-2024 14:01-0400 Respiratory rate 18 /min Dr. David Ghotra DO Work Phone: [facility] 12-09-2024 14:01-0400 SaO2% (BldA) [Mass fraction] 98 % Dr. David Ghotra DO Work Phone: [facility] 12-09-2024 14:01-0400 Systolic blood pressure 169 mm[Hg] Dr. David Ghotra DO Work Phone: [facility] 03-01-2022 15:48-0400 Body weight 69.4 kg Faith [place] [employer]IOR [employer] DESIGN[employer] Work Phone: [facility] 03-01-2022 15:48-0400 Diastolic blood pressure 80 mm[Hg] Faith [place] SOLDERER DIPPER.SENIOR UI DESIGNER Work Phone: [facility] 03-01-2022 15:48-0400 Systolic blood pressure 120 mm[Hg] Faith [place]arr SOLDERER DIPPER.SENIOR UI DESIGNER Work Phone: [facility] Encounters Encounter Date Encounter Type Care Provider Facility Start: 05-30-2025 ambulatory David Ghotra Facility: [facility] Start: 05-28-2025 End: 05-28-2025 ambulatory David RiceAlec Facility:[facility] Start: 05-15-2025 End: 05-15-2025 Emergency department patient visit [place] Carmen GHOTRA Facility:[facility] Start: 05-07-2025 End: 05-07-2025 Patient encounter procedure Kelsey Amalia PATIENT SERVICES SPECIALIST-C -[facility] Work Phone: Start: 05-07-2025 End: 05-07-[address] David Ghotra DO Work Phone: [facility] Start: 05-07-[address] [facility] Start: 04-02-2025 End: 04-02-[address] Arnaud Borja MD [facility] Work Phone: Start: 04-02-2025 End: 04-02-[address] David Ghotra DO Work Phone: [facility] Start: 04-02-[address] [facility] Start: 03-12-2025 End: 03-12-[address] Arnaud Borja MD [facility] Work Phone: Start: 03-12-2025 End: 03-12-[address] David Ghotra DO Work Phone: [facility] Start: 03-12-[address] [facility] Start: 02-20-2025 End: 02-20-2025 Patient encounter procedure Kelsey Amalia PATIENT SERVICES SPECIALIST-C -[facility] Work Phone: Start: 02-20-2025 End: 02-20-[address] David Ghotra DO Work Phone: [facility] Start: 02-20-[address] [facility] Start: 02-13-2025 End: 02-13-2025 Patient encounter procedure Kelsey Amalia PATIENT SERVICES SPECIALIST-C -[facility] Work Phone: Start: 02-13-2025 End: 02-13-[address] David Ghotra DO Work Phone: [facility] Start: 02-13-[address] Pastor Borja MD -[facility] Start: 02-05-2025 Non-patient / Non-visit Dr. Angela MOSELEY -[facility] Start: 02-05-2025 End: 02-05-2025 Patient encounter procedure Kelsey Holland PATIENT SERVICES SPECIALIST-C -[facility] Work Phone: Start: 02-05-2025 End: 02-05-[address] David Ghotra DO Work Phone: -[facility] Start: 02-05-2025 End: 02-05-2025 ambulatory [facility] Start: 01-23-2025 End: 01-23-[address] Arnaud Borja MD -[facility] Work Phone: Start: 01-23-2025 End: 01-23-[address] David Ghotra DO Work Phone: [facility] Work Phone: Start: 01-17-2025 End: 01-17-[address] David Ghotra DO Work Phone: -Nuclear Medicine [facility] Start: 01-17-2025 End: 01-17-[address] Arnaud Borja MD -Nuclear Medicine [facility] Work Phone: Start: 01-17-2025 End: 01-17-2025 ambulatory [facility] Start: 01-13-2025 End: 01-13-[address] David Ghotra DO Work Phone: [facility] Work Phone: Start: 01-13-2025 End: 01-13-[address] Arnaud Borja MD -Cat Scan [facility] Work Phone: Start: 01-13-2025 End: 01-13-2025 ambulatory [facility] Start: 01-08-2025 Non-patient / Non-visit Dr. Shilpa Castellon MD -[facility] Start: 01-08-2025 End: 01-08-2025 Admission to same day surgery center Dr. Feliciano Castellon MD [facility] Start: 01-08-2025 End: 01-08-[address] David Ghotra DO Work Phone: [facility] Work Phone: Start: 12-25-[address] Pastor Borja MD -[facility] Start: 12-25-2024 End: 12-25-[address] Arnaud Borja MD -[facility] Work Phone: Start: 12-25-2024 End: 12-25-[address] David Ghotra DO Work Phone: [facility] Work Phone: Start: 12-10-2024 End: 12-10-[address] Feliciano Castellon MD -[facility] Work Phone: Start: 12-10-2024 End: 12-10-[address] David Ghotra DO Work Phone: [facility] Work Phone: Start: 12-09-2024 End: 12-09-[address] Feliciano Castellon MD -[facility] Work Phone: Start: 12-09-2024 End: 12-10-2024 ambulatory Feliciano Castellon Facility:[facility] Start: 12-04-2024 End: 12-04-[address] David Ghotra DO Work Phone: [facility] Work Phone: Start: 12-04-2024 End: 12-04-[address] David Ghotra DO -Outpatient Breast Imaging Work Phone: Start: 12-04-2024 End: 12-04-2024 ambulatory David Ghotra Facility:[facility] Start: 11-14-2024 End: 11-14-[address] David Ghotra DO -[facility] Start: 11-14-2024 End: 11-14-2024 ambulatory David Ghotra Facility:[facility] Start: 04-20-2022 End: 04-20-2022 ambulatory DAVID GHOTRA Facility:[facility] Start: 03-01-2022 End: 03-01-2022 ambulatory FAITH CHAVEZ Facility:[facility] Start: 03-01-2022 End: 03-01-2022 Patient encounter procedure Faith Chavez SOLDERER DIPPER.SENIOR UI DESIGNER Work Phone: OB/Gynecology Comment on above: Fibrocystic [...] the productionof interferon gamma. Chemiluminescence immunoassaymethodologyPerformed at: [facility] [place] [id number] Director: Mendez Parmar PhD, Phone: [phone] Start: 04-20-2016 Rony Chavez APRN.CNP Work Phone: Plan of Treatment Date Care Activity Detail Author Start: 05-07-2025 Ferritin [Mass/volum e] in Serum or Plasma [facility] Start: 05-07-2025 [facility] Start: 04-02-2025 [facility] Start: 03-12-2025 [facility] Start: 02-20-2025 End: 02-20-2025 [facility] Start: 02-13-2025 [facility] Start: 02-13-2025 Venous catheter care management [facility] Start: 02-10-2025 [facility] Start: 02-05-2025 US Heart [facility] Start: 01-08-2025 Patient discharge [facility] Start: 01-08-2025 Anesthesia access ce ntral venous circulation ANESTH VASCULAR ACCESS [facility] Start: 01-08-2025 Insj tunneled ctr va d w/subq port age 5 yr/> INSERT TUNNELED CV CATH [facility] Start: 01-08-2025 Fluoroscopic guidance [facility] Start: 12-25-2024 Urine test [facility] Start: 12-25-2024 Cancer Ag 15-3 [Pres ence] in Serum or Plasma [facility] Start: 12-25-2024 Cancer Ag 27-29 [Pre sence] in Serum or Plasma [facility] Start: 12-25-2024 CBC W Auto Different ial panel - Blood [facility] Start: 12-25-2024 Comprehensive metabo lic 2000 panel - Serum or Plasma [facility] Start: 12-25-2024 Follitropin and Lutr opin panel [Units/volume] - Serum or Plasma [facility] Start: 12-25-2024 [facility] Start: 12-04-2024 Digital breast tomosynthesis bilateral BREAST TOMOSYNTHESIS BI [facility] Start: 03-31-2022 Influenza vaccination INFLUENZA (#1) [facility] Start: 04-12-2021 HPV TESTING HPV TESTING [facility] Start: 04-12-2021 PAP TESTING PAP TESTING [facility] Start: 2020 Mammography MAMMOGRAM [facility] Start: 12-24-1999 Urine microalbumin profile DTAP,TDAP ,TD (1 - Tdap) [facility] Start: 1992 Adult depression scr eening assessment DEPRESSION SCREENING [facility] Start: 1986 PNEUMOCOCCAL (1 - PCV) PNEUMOCOCCAL (1 - PCV) [facility] Start: 06-25-1981 COVID-19 VACCINE (#1) COVID-19 VACCI NE (#1) [facility] Alanine aminotransfe rase [Enzymatic activity/volume] in Serum or Plasma [facility] Alanine aminotransfe rase [Enzymatic activity/volume] in Serum or Plasma [facility] Albumin [Mass/volume ] in Serum or Plasma [facility] Albumin [Mass/volume ] in Serum or Plasma [facility] Alkaline phosphatase [Enzymatic activity/volume] in Serum or Plasma [facility] Alkaline phosphatase [Enzymatic activity/volume] in Serum or Plasma [facility] Anion gap in Serum o r Plasma [facility] Anion gap in Serum o r Plasma [facility] Bilirubin, total measurement [facility] Bilirubin, total measurement [facility] BUN/Creatinine ratio [facility] BUN/Creatinine ratio [facility] Calcium [Mass/volume ] in Serum or Plasma [facility] Calcium [Mass/volume ] in Serum or Plasma [facility] Carbon dioxide, tota l [Moles/volume] in Central venous blood [facility] Carbon dioxide, tota l [Moles/volume] in Central venous blood [facility] Creatinine [Mass/vol ume] in Serum or Plasma [facility] Creatinine [Mass/vol ume] in Serum or Plasma [facility] End: 03-31-2023 Diagnostic mammography computer-aided detcj bi [facility] DI[facility]NO[facility] Radiology Routine Fibrocystic breast changes, left Breast pain 1 Occurrences starting 03/01/2022 until 03/31/2023 [facility] Work Phone: Comment on above: 1 Occurrences starti ng 03/01/2022 until 03/31/2023 Erythrocyte mean corpuscular volume determination [facility] Erythrocyte mean corpuscular volume determination [facility] Follicle stimulating hormone measurement [facility] Glucose [Mass/volume ] in Serum or Plasma [facility] Glucose [Mass/volume ] in Serum or Plasma [facility] Hematocrit [Volume Fraction] of Blood [facility] Hematocrit [Volume Fraction] of Blood [facility] Hemoglobin [Mass/vol ume] in Blood [facility] Hemoglobin [Mass/vol ume] in Blood [facility] Leukocytes [#/volume ] in Blood [facility] Leukocytes [#/volume ] in Blood [facility] Lutropin [Units/volu me] in Serum or Plasma [facility] Magnesium measurement [facility] Mean corpuscular hemoglobin concentration determination [facility] Mean corpuscular hemoglobin concentration determination [facility] Mean corpuscular hemoglobin determination [facility] Mean corpuscular hemoglobin determination [facility] Measurement of renal function [facility] Measurement of renal function [facility] Neutrophil count [facility] Neutrophil count [facility] Neutrophil percent differential count [facility] Neutrophil percent differential count [facility] Patient referral [facility] Work Phone: Platelet count [facility] Platelet mean volume determination [facility] Platelets [#/volume] in Blood [facility] Platelets [#/volume] in Blood [facility] Positron emission tomography with computed tomography [facility] Potassium measurement [facility] Potassium measurement [facility] Red blood cell count [facility] Red blood cell count [facility] Red cell distributio n width determination [facility] Red cell distributio n width determination [facility] Serum chloride measurement [facility] Serum chloride measurement [facility] Sodium measurement [facility] Sodium measurement [facility] Total protein measurement [facility] Total protein measurement [facility] Urea nitrogen [Mass/volume] in Serum or Plasma [facility] Urea nitrogen [Mass/volume] in Serum or Plasma [facility] Urinalysis complete panel - Urine [facility] End: 03-31-2023 Us breast uni real time with image limited [facility] BREAST [facility]TD Radiology Routine Fibrocystic breast changes, left Breast pain 1 Occurrences starting 03/01/2022 until 03/31/2023 [facility] Work Phone: Comment on above: 1 Occurrences starti ng 03/01/2022 until 03/31/2023 US Heart [facility] White blood cell count [facility] Immunizations Immunization Date Immunization Notes Care Provider Shan field 08-18-2017 influenza, injectabl e, quadrivalent, preservative free Dr. David Ghotra DO Work Phone: [facility] Payers Date Payer Category Payer Self-pay 2022 Medicaid [id number] 2019 Medicaid [employer] [id number] 2019-Present [phone] [address] [place] [address] Medicaid [id number] 2019 Medicaid [id number] Self-pay [id number] Unknown [id number] Unknown [id number] .840.1.232551.3.579.2.462 Unknown [id number] 2.840.1.128933.3.579.2.462 Unknown [id number] 2.840.1.297717.3.579.2.462 Unknown [id number] 2.840.1.432537.3.579.2.462 Unknown [id number] .840.1.471673.3.579.2.462 Unknown [id number] .840.1.683283.3.579.2.462 Unknown [id number] 2.840.1.090353.3.579.2.462 Unknown [id number] .840.1.052994.3.579.2.462 Unknown [id number] .840.1.535939.3.579.2.462 Unknown [id number] .840.1.518602.3.579.2.462 Unknown [id number] .840.1.238560.3.579.2.462 Unknown [id number] 840.1.651923.3.579.2.462 Unknown [id number] .840.1.741812.3.579.2.462 Unknown [id number] .840.1.209033.3.579.2.462 Unknown [id number] 2.840.1.830779.3.579.2.462 Unknown [id number] 2.840.1.576002.3.579.2.462 Unknown [id number] 2.840.1.603339.3.579.2.462 Unknown [id number] 840.1.487471.3.579.2.462 Unknown [id number] 2.16.840.1.328674.3.579.2.462 Unknown [id number] 2.16.840.1.201377.3.579.2.462 Unknown [id number] 2.16.840.1.945179.3.579.2.462 Social History Date Type Detail Facility Start: 07-13-2015 Tobacco smoking stat us [facility]IS Smokes tobacco daily [facility] History of tobacco use Cigarette Smoker [facility] Start: 07-13-2015 Cigarettes smoked current (pack per day) - Reported 0.5 [facility] Start: 07-13-2015 Tobacco use and exposure Smokeless tobacco non-user [facility] Start: 03-01-2022 Alcohol intake Current drinke r of alcohol (finding) [facility] Start: 02-09-2017 History SDOH Alcohol Comment occasionally, but not while [facility] Start: 1980 Sex Assigned At Female [facility] Start: 02-19-2022 End: 03-01-2022 Exposure to SARS-CoV-2 (event) Not sure [facility] Work Phone: Start: 12-06-2024 End: 01-02-2025 Tobacco smoking status VTIS Current Light tobacco smoker [facility] Start: 06-18-2014 Alcohol Alcohol [facility] Not [facility] NEGATED: Highlighted row Not [facility] Medical Equipment Procedure Code Equipment Code Equipment Origin al Text Equipment Identifier Dates Insertion, vascular access port [id number]) Vascular port/catheter [id number] FDA Start: 01-08-2025 Goals Date Patient Goal Desired Activity /State Mental Status Date Assessment Result Facility 01-08-2025 Cognitive function Voice/Name [facility] Work Phone: Clinical Notes 07-12-2017 to 05-15-2025 Note Date & Type Note Facility 05-15-2025 Note SARS-COV-2 (AGENT OF COVID-19) RNA: Not detected INFLUENZA A RNA: Not detected INFLUENZA B RNA: Not detected RESPIRATORY SYNCYTIAL VIRUS (RSV) RNA: Not detected [facility] Comment on above: Performed By: #### [id number] #### [facility] CLIA [id number] [address] [place] [address] [place] 05-07-2025 Progress note [facility] 04-02-2025 Progress note [facility] 04-02-2025 Progress note Note Date/Time April 02, 2025 10:15am [facility] [address] 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 Arnaud Borja MD Nursing Techn, [facility] Divisions of Medical Oncology & Hematology Department of Internal Medicine [place] [address] This note was generated using a voice [...] Cosigner Signature: Date (if applicable) CC: ~ [facility] Work Phone: 1(779) 257-642407-17-2025 Progress [facility] [address] [place] [address] OFFICE VISIT Date of Service: 02/13/25 0830 MR#: [id number] Acct: [id number] Name: HOWARD HALL Rep #: [id number] : 1980 From: Kelsey Morse ch PATIENT SERVICES SPECIALIST PATIENT SERVICES SPECIALIST-C Age/Sex: 44/F Location: [facility] Status: Signed HPI Subjective Date of Service 02/13/25 Chief Complaint Breast cancer on treatment- start [facility] History of Present Illness 44-year-old female menopausal [...] in 100% of tumor cells PROGESTERONE RECEPTOR (NC): Positive, strong immunoreactivity in 100% of tumor [...] She denies any concerns r/t today's visit. [facility] Medical History (Updated 02/13/25 @ 09:09 by Kelsey Holland NP, PATIENT SERVICES SPECIALIST-C) Encounter for antineoplastic chemotherapy and immunotherapy Encounter [...] on biopsy, with DCIS,ER positive (100% strong) NC positive (100% strong) HER2 diego IHC overexpressed [...] for? Cycle 2 TCHP. 02/13/25 0911 h PATIENT SERVICES SPECIALIST PATIENT SERVICES SPECIALIST-C> Date _ Kelsey Holland PATIENT SERVICES SPECIALIST PATIENT SERVICES SPECIALIST-C Cosigner Signature: Date (if applicable) CC: ~ [facility]07-17-2025 Progress note Author Kelsey Holland [facility] Note Date/Time February 13, 2025 9:11 am [facility] [address] [place] [address] OFFICE VISIT Date of Service: 02/13/25 0830 MR#: [id number] Acct: [id number] Name: HOWARD HALL Rep #: [id number] : 1980 From: Kelsey Morse PATIENT SERVICES SPECIALIST PATIENT SERVICES SPECIALIST-C Age/Sex: 44/F Location: [facility] Status: Signed HPI Subjective Date of Service 02/13/25 Chief Complaint Breast cancer on treatment- start [facility] History of Present Illness 44-year-old female menopausal [...] in 100% of tumor cells PROGESTERONE RECEPTOR (NC): Positive, strong immunoreactivity in 100% of tumor [...] She denies any concerns r/t today's visit. 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 Imaging Services [address] [place], [place] [id number] Bone Scan Whole Body MR#: [id number] Acct: [id number] Name: HOWARD HALL Rep #: [id number] : 1980 F 44 From: Pet alexis Shaffer DO PCP: Dr. David Ghotra DO Status: REG CLI Study:Bone Scan Whole Body Date of Exam: 01/17/25 Exam# [id number] Ordering Dr: Arnaud Borja MD PROCEDURE: BONE [...] evidence of metastatic breast cancer. Reading Location[facility] CC: Dr. Arnaud Borja MD; Dr. David Ghotra DO ~ Mat Sewer: Signed [facility]06-17-2025 Radiology Diagnostic study note [facility] Imaging Services [address] [place], [place] [address] CT Chest, Abd, Pel w/Contrast MR#: [id number] Acct: [id number] Name: HOWARD HALL Rep #: [id number] : 1980 F 44 From: Steve Tinoco MD PCP: Dr. David Ghotra DO Status: REG CLI Study:CT Chest, Abd, Pel w/Contrast Date of E xam: 01/13/25 Exam# [id number] Ordering Dr: Arnaud Borja MD PROCEDURE: CT [...] 3. Other findings as noted. Reading Location: [id number] CC: Dr. Arnaud Borja MD; Dr. David Ghotra DO ~ Mat Sewer: Signed [facility] Work Phone: 1(309) 200-342106-11-2025 Consult [address] [facility] Medical Records Department [address] [place] [address] Anesthesia Postop Eval I 01/08/25 1553 MR#: [id number] Acct: [id number] Name: HOWARD HALL Rep #:[id number] : 1980 44 From: Rebecca Mathews APPLICATION SUPPORT DEVELOPER PCP: Dr. David Ghotra, DO Status:REG SDC Y Race: C Location: [place] [address] Anesthesia: Postop Eval I Current Vital Signs [...] Eval 1 completed: Yes 01/08/[address] APPLICATION SUPPORT DEVELOPER> Date _ Rebecca Mathews APPLICATION SUPPORT DEVELOPER Cosigner Signature: Date CC: ~ Signed [facility]06-11-2025 Consult note Author Clyde Starks [facility] Note Date/Time January 08, 2025 1:[address] [facility] Medical Records Department [address] [place] [address] Pre-Anesthesia Evaluation 01/08/25 1352 MR#: [id number] Acct: [id number] Name: HOWARD HALL Rep #:[id number] : 1980 44 From: Clyde Starks MD PCP: Dr. David Ghotra, DO Status:REG SDC Y Race: C Location: [facility] ASA Classification* ASA Classification ASA Classification: [...] possible left Anesthesia History Anesthesia History - coin machine mechanic: Anesthesia History - coin machine mechanic Hx Hospitalization No 01/02/25 13:24 Any Problems [...] take am of surgery PONV PONV - coin machine mechanic: PONV - coin machine mechanic Female Yes 01/02/25 13:24 HX of Motion [...] 12/25/24 16:04 Respiratory Assessment Respiratory Assessment - coin machine mechanic: Respiratory Tract Infection Hx - coin machine mechanic Hx Respiratory Tract Infection No 01/02/25 13:24 STOP Sleep Apnea STOP Sleep Apnea - coin machine mechanic: STOP Sleep Apnea - coin machine mechanic Hx Hypertension No 01/02/25 13:24 Hx Sleep [...] 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 Use History - coin machine mechanic: Tobacco Use History - coin machine mechanic Tobacco Use Smoking Status Light Smoker (<10/day) 01/02/25 13:24 Hx Tobacco Use Yes 01/02/25 13:24 Years Smoking Packs Smoked per Day 0.5 01/02/25 13:24 Smoking Cessation Date was within the last 15 years Hx Smoking Cessation Date Hx Smoking Cessation Counseling Hematologic Medial History Hematologic Hx - 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 01/08/25 4461 <Electronically signed by Clyde Starks MD > Date _ Clyde Starks MD Cosigner Signature: Date CC: ~ Signed [facility] Work Phone: 1(759) 451-767006-11-2025 Evaluation note* Diagnosis Onset Date Resolution Status [...] Anemia chronic May 07, 2 025 8:47am [facility] Work Phone: 1(935) 326-262006-11-2025 Radiology Diagnostic study note [facility] Imaging Services [address] [place], [place] [id number] Chest 1 View MR#: [id number] Acct: [id number] Name: HOWARD HALL Rep #: [id number] : 1980 F 44 From: Chilo Fleming MD PCP: Dr. David Ghotra DO Status: REG [facility] Study:Chest 1 View Date of Exam: 5 Exam# [id number] Ordering Dr: Feliciano Burris MD PROCEDURE: CHEST [...] vena cava and right atrium. Reading Location: [facility] CC: Dr. Feliciano Castellon MD; Dr. David Ghotra DO ~ Mat Sewer: Signed [facility]06-11-[address] [facility] Medical Records Department [address] [place] [address] Anesthesia Postop Eval II 01/08/25 1530 MR#: [id number] Acct: [id number] Name: HOWARD HALL Rep #:[id number] : 1980 44 From: Clyde Starks MD PCP: Dr. David Ghotra, DO Status:REG SDC Y Race: C Location: [facility]01- Anesthesia Postop Eval I Sum Postop Eval Completion status Anesthesia document: Postop Eval 1 completed: Yes Anesthesia Postop Eval I Summary Anesthesia Postop Eval I Summary: Anesthesia Postop Eval I: Assessment Summary Airway patent Yes 01/08/25 15:08 APPLICATION SUPPORT DEVELOPER.JDEF Spontaneous unlabored Yes 01/08/25 15:08 APPLICATION SUPPORT DEVELOPER.JDEF respirations Mental status Awake 01/08/25 15:08 APPLICATION SUPPORT DEVELOPER.JDEF nausea No 01/08/25 15:08 APPLICATION SUPPORT DEVELOPER.JDEF Vomiting No 01/08/25 15:08 APPLICATION SUPPORT DEVELOPER.JDEF Anesthesia Postop Eval I: Fluid Summary Crystalloid volume administer 300 01/08/25 15:08 APPLICATION SUPPORT DEVELOPER.JDEF (ml) Colloids volume administered ( ml) Blood Product volume administered (ml) Total IV fluid infused 300 01/08/25 15:08 APPLICATION SUPPORT DEVELOPER.JDEF Anesthesia Postop Eval I: Summary Notes Anesthesia Complication No 01/08/25 15:08 APPLICATION SUPPORT DEVELOPER.JDEF Anesthesia Complication Comment: Post-operative progress note Anesthesia: Postop Eval II Evaluation Mental status: Awake Pain Level: 0 nausea: No Vomiting: No 01/08/25 1530 > Date _ [facility]de [facility]arks [facility] Signature: Date CC: ~ Signed [facility]06-11-2025 Discharge summary [facility] Medical Records Department [address] [place] [address] Instructions for Home/Discharge Instructions 01/08/25 1507 MR#: [id number] Acct: [id number] Name: HOWARD HALL Rep #:[id number] : 1980 44 From: Feliciano salazar MD PCP: Dr. David Ghotra DO Status:REG [facility] Discharge Instructions Procedure Gallbladder Diet Discharge Diet: [...] to schedule 2 week follow up appointment. [phone] Test Results: Test results from this visit will be discussed in further detail at your follow- up appointment, if applicable. Discharge Plan Admission Attending Provider: Feliciano Castellon Primary Care Provider: David Ghotra Instructions Print Language: Nepalese Discharge Orders/Prescriptions Prescriptions: No Action citalopram 40 mg tablet 40 mg PO QDAY Referrals / Follow Up: David Ghotra DO [Primary Care Provider] - Disposition Disposition (needs filled in before D/C Order can be placed): Home, Self Care 01/08/25 0630Feliciano Castellon MD CC: Dr. David Ghotra DO ~ Signed [facility]06-11-[address] Consult [address] [facility] Medical Records Department [address] [place] [address] Anesthesia Postop Eval I 01/08/25 1506 MR#: [id number] Acct: [id number] Name: HOWARD HALL Rep #:[id number] : 1980 44 From: Rebecca Mathews CRNA PCP: Dr. David Ghotra, DO Status:REG [facility] Y Race: C Location: [place] [address] Anesthesia: Postop Eval I Current Vital Signs [...] Eval 1 completed: Yes 01/08/[address] APPLICATION SUPPORT DEVELOPER> Date _ Rebecca Mathews APPLICATION SUPPORT DEVELOPER Cosigner Signature: Date CC: ~ Signed [facility]06-11-2025 Procedure note [facility] Medical Records Department [address] [place] [address] Operative Report 01/08/25 1506 MR#: [id number] Acct: [id number] Name: HOWARD HALL Rep #:[id number] : 1980 44 From: Feliciano salazar MD PCP: Dr. David Ghotra, DO Status:REG [facility] Location: [address] Operative Report (Standard) Operative Information Date of Procedure: 01/08/25 Pre-Operative Diagnosis: Need for vascular access port for chemotherapy Post-Operative Diagnosis: Same Surgery/Procedure Performed: Ultrasound and fluoroscopy guided right chest port placement with utilization of right IJ instrument mechanics supervisor: No Type of Anesthesia: Local MAC RN [...] apply: Implanted device Implanted device details: 8 Kyr[place]z PowerPort Estimated Blood Loss: 5 Specimen collected: [...] Castellon MD; Dr. David Ghotra, ~ Signed [facility]06-11-2025 History and physical note [facility] Medical Records Department [address] [place] [address] H&P Exam - Surgical 01/08/25 1420 MR#: [id number] Acct: [id number] Name: HOWARD HALL Rep #:[id number] : 1980 44 From: Feliciano salazar MD PCP: Dr. David Ghotra DO Status:REG [facility] Location: [place] [address]- HPI - General HPI Narrative HOWARD HALL, [...] willing to proceed. Feliciano Castellon MD Pager: [facility] [address] [place] [address], [address] [place] [phone] Office: 01/08/25 1422 Cosigner Signature (if applicable): CC: Dr. Feliciano Castellon MD; Dr. David Ghotra, DO~ Signed [facility]06-11-2025 Consult [address] [facility] Medical Records Department [address] [place], [place] [id number] Pre-Anesthesia Evaluation 01/08/25 1352 MR#: [id number] Acct: [id number] Name: HOWARD HALL Rep #:[id number] : 1980 44 From: Clyde Starks MD PCP: Dr. David Ghotra, DO Status:REG SDC Y Race: C Location: [facility]01-1 ASA Classification* ASA Classification ASA Classification: [...] possible left Anesthesia History Anesthesia History - coin machine mechanic: Anesthesia History - coin machine mechanic Hx Hospitalization No 01/02/25 13:24 Any Problems [...] take am of surgery PONV PONV - coin machine mechanic: PONV - coin machine mechanic Female Yes 01/02/25 13:24 HX of Motion [...] 12/25/24 16:04 Respiratory Assessment Respiratory Assessment - coin machine mechanic: Respiratory Tract Infection Hx - coin machine mechanic Hx Respiratory Tract Infection No 01/02/25 13:24 STOP Sleep Apnea STOP Sleep Apnea - coin machine mechanic: STOP Sleep Apnea - coin machine mechanic Hx Hypertension No 01/02/25 13:24 Hx Sleep [...] 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 Use History - coin machine mechanic: Tobacco Use History - coin machine mechanic Tobacco Use Smoking Status Light Smoker (<10/day) 01/02/25 13:24 Hx Tobacco Use Yes 01/02/25 13:24 Years Smoking Packs Smoked per Day 0.5 01/02/25 13:24 Smoking Cessation Date was within the last 15 years Hx Smoking Cessation Date Hx Smoking Cessation Counseling Hematologic Medial History Hematologic Hx - 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 Hx of Blood Transfusion No 01/02/25 13:24 [...] 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 History - coin machine mechanic: /Reproductive Hx- coin machine mechanic Hx Now No 01/02/25 13:24 Gestational Age [...] 1353 > Date _ Clyde Starks MD [facility] Signature: Date CC: ~ Signed [facility]05-28-2025 Progress [facility] [address] [place] [address] OFFICE VISIT Date of Service: 12/25/24 1555 MR#: [id number] Acct: [id number] Name: HOWARD HALL Rep #: [id number] : 1980 From: Arnaud parr MD Age/Sex: 44/F Location: [facility] Status: Signed HPI Subjective Date of Service [...] in 100% of tumor cells PROGESTERONE RECEPTOR (NC): Positive, strong immunoreactivity in 100% of tumor cells HER2/DIEGO IHC: Positive, (Score 3+) KI67 IHC: 40% B. Left axilla, lymph node, biopsy: * Metastatic mammary carcinoma (See note) Note: The pancytokeratin stain is positive supporting the diagnosis. 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 Arnaud Borja MD Nursing Techn, [facility] Divisions of Medical Oncology & Hematology Department of Internal Medicine [place] [address] This note was generated using a voice [...] Castellon MD; Dr. David Ghotra, DO ~ [facility]05-28-2025 Progress note Author Arnaud Borja [facility] Note Date/Time December 25, 2024 4:55p m [facility] [address] [place] [address] OFFICE VISIT Date of Service: 12/25/24 1555 MR#: [id number] Acct: [id number] Name: HOWARD HALL Rep #: [id number] : 1980 From: Arnaud parr MD Age/Sex: 44/F Location: [facility] Status: Signed HPI Subjective Date of [...] in 100% of tumor cells PROGESTERONE RECEPTOR (NC): Positive, strong immunoreactivity in 100% of tumor cells HER2/DIEGO IHC: Positive, (Score 3+) KI67 IHC: 40% B. Left axilla, lymph node, biopsy: * Metastatic mammary carcinoma (See note) Note: The pancytokeratin stain is positive supporting the diagnosis. 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 Arnaud Borja MD Nursing Techn, [facility] Divisions of Medical Oncology & Hematology Department of Internal Medicine [place] [address] This note was generated using a voice [...] fallen in the past year?: No 12/25/24 0512 <Electronically signed by Arnaud hurley MD> Date _ Arnaud Borja MD Cosigner Signature: Date (if applicable) CC: Dr. Feliciano Castellon MD; Dr. David Ghotra, DO ~ [facility] Work Phone: 1(817) 445-887105-12-2025 Evaluation note* Diagnosis Onset Date Resolution Status Admit Date Left breast mass acute November 1:07pm [facility] Work Phone: [phone] 116-721305-12-2025 Evaluation note* Diagnosis Onset Date Resolution Status Admit Date Left breast mass acute November 1:07pm Left breast mass acute November 12:05pm [facility] Work Phone: [phone]) 453-763005-12-2025 Evaluation note* Diagnosis Onset Date Resolution Status Admit Date Left breast mass deleted November 1:07pm Left breast mass deleted November 12:05pm Breast cancer acute December 25, 2 025 3:54pm Regional lymph node metastas is present acute December 25, 2024 3 :54pm [facility] Work Phone: [phone] Evaluation note* Diagnosis Onset Date Resolution Status Admit Date Left breast mass deleted November 1:07pm Left breast mass deleted November 12:05pm Breast cancer acute December 25, 2 025 3:54pm Regional lymph node metastas is present acute December 25, 2024 3 :54pm Breast cancer acute January 08, 2025 1:42pm Encounter for insertion of venous access port acute January 08 1:42pm [facility] Work Phone: [phone]) 729-265405-12-2025 Evaluation note* Diagnosis Onset Date Resolution Status [...] is present acute January 23, 2025 11:16am [facility] Work Phone: 1(359) 523-707105-12-2025 Evaluation note* Diagnosis Onset Date Resolution Status [...] 2 025 3:23pm Encounter for education acute [facility] 2024 3:23pm Regional lymph node metastas is present acute February 05, 2025 3 :23pm [facility] Work Phone: [phone]) 126-187805-12-2025 Evaluation note* Diagnosis Onset Date Resolution Status [...] 2 025 3:23pm Encounter for education acute [facility] 2024 3:23pm Regional lymph node metastas is present acute February 05, 2025 3 :23pm Breast cancer acute February 13, 2025 7:45am Encounter for antineoplastic chemotherapy and immunotherapy acute [facility] 2024 7:45am Regional lymph node metastas is present acute February 13, 2025 7:45am [facility] [employer] [facility] Work Phone: 1(686) 842-578405-12-2025 Evaluation note* Diagnosis Onset Date Resolution Status [...] 2 025 3:23pm Encounter for education acute [facility] 2024 3:23pm Regional lymph node metastas is present acute February 05, 2025 3 :23pm Breast cancer acute February 13, 2025 7:45am Encounter for antineoplastic chemotherapy and immunotherapy acute [facility] 2024 7:45am Regional lymph node metastas is present acute February 13, 2025 7:45am Breast cancer acute February 20, 2025 2:49pm Diarrhea due to drug acute February 20, 2025 2:49pm Dysuria acute February 20 2:49pm Regional lymph node metastas is present acute February 20, 2025 2:49pm Breast cancer acute February 8:04am Regional lymph node metastas is present acute March 12 8:04am [facility] Work Phone: [phone] Evaluation note* Diagnosis Onset Date Resolution Status [...] 2 025 3:23pm Encounter for education acute [facility] 2024 3:23pm Regional lymph node metastas is present acute February 05, 2025 3 :23pm Breast cancer acute February 13, 2025 7:45am Encounter for antineoplastic chemotherapy and immunotherapy acute [facility] 2024 7:45am Regional lymph node metastas is [...] 8:51am Anemia chronic April 02, 2025 8:51am [facility] Work Phone: [phone]) 438-572005-08-2025 Radiology Diagnostic study note [facility] Imaging Services [address] [place], [place] [address] Breast Limited Unilateral MR#: [id number] Acct: [id number] Name: HOWARD HALL Rep #: [id number] : 1980 F 43 From: Kamilah Sarah MD PCP: Dr. David Ghotra, Status: REG CLI Study:Breast Limited Unilateral Date of Exam: 12/04/24 Exam# [id number] Ordering Dr: David Ghotra DO EXAM: BREAST [...] be mailed to the patient. Reading Location: [facility] CC: Dr. David Ghotra, DO ~ Mat Sewer: Signed [facility]09-21-2022 NoteHNO ID: [id number] Author: RT Heidi(R) Service: ? Author Type: Entertainment Lawyer Type: Progress Notes Filed: 04/20/2022 4:42 PM [...] Michelle Barber RT(R) April 20, 2022 4:41 [facility]08-02-2022 NoteHNO ID: [id number] Author: Faith Chavez APRN.SENIOR UI DESIGNER Service: ? Author Type: Nurse Practitioner Type: Progress Notes Filed: 03/01/2022 4:30 PM Note Text: BREAST LUMP HISTORY: This is a 41 year old female Presents with breast mass left side, about 10 days Tenderness slight but feeling prick sensation Change in sizeNo Any history breast mass No Caffeine use Yes 1-2 cups/day Last [id number] normal Any previous breast surgery No Any [...] 1 tablet by mouth once daily. - Jthshypy-Lc-Yxt-Fe-FA ( VITAMIN) tab Take 1 tablet by [...] testing/treatment Medical Decision Making [facility]: [facility] of Present illness Narrative* Faith Chavez APRN.CNP - 03/01/2022 3:45 PM EDT BREAST LUMP HISTORY: This is a 41 year old female Presents with breast mass left side, about 10 days Tenderness slight but feeling prick sensation Change in sizeNo Any history breast mass No Caffeine use Yes 1-2 cups/day Last [id number] normal Any previous breast surgery No Any [...] Take 1 tablet by mouth once daily. Oantpmzd-Ux-Xni-Fe-FA ( VITAMIN) tab Take 1 tablet by [...] Level: 3 - Low [facility] History of Past illness Narrative* Problem Noted [...] of this encounter (statuses as of 03/01/2022) [facility] Author Rebecca Mathews [facility] Note Date/Time January 08, 2025 3:[address] [facility] Medical Records Department [address] [place] [address] Anesthesia Postop Eval I 01/08/25 1506 MR#: [id number] Acct: [id number] Name: HOWADR HALL Rep #:[id number] : 1980 44 From: Rebecca Mathews CRNA PCP: Dr. David Ghotra, DO Status:REG SDC Y Race: C Location: [place] [address] Anesthesia: Postop Eval I Current Vital Signs [...] 1508 <Electronically signed by Rebecca DeForee st APPLICATION SUPPORT DEVELOPER> Date _ Rebecca Mathews APPLICATION SUPPORT DEVELOPER Cosigner Signature: Date CC: ~ Signed [facility] Work Phone: Consult note Author Clyde Starks [facility] Note Date/Time January 08, 2025 3:[address] [facility] Medical Records Department [address] [place] [address] Anesthesia Postop Eval II 01/08/25 1530 MR#: [id number] Acct: [id number] Name: HOWARD HALL Rep #:[id number] : 1980 44 From: Clyde Starks MD PCP: Dr. David Ghotra, DO Status:REG SDC Y Race: C Location: [place] [address] Anesthesia Postop Eval I Sum Postop Eval Completion status Anesthesia document: Postop Eval 1 completed: Yes Anesthesia Postop Eval I Summary Anesthesia Postop Eval I Summary: Anesthesia Postop Eval I: Assessment Summary Airway patent Yes 01/08/25 15:08 APPLICATION SUPPORT DEVELOPER.JDEF Spontaneous unlabored Yes 01/08/25 15:08 APPLICATION SUPPORT DEVELOPER.JDEF respirations Mental status Awake 01/08/25 15:08 APPLICATION SUPPORT DEVELOPER.JDEF nausea No 01/08/25 15:08 APPLICATION SUPPORT DEVELOPER.JDEF Vomiting No 01/08/25 15:08 APPLICATION SUPPORT DEVELOPER.JDEF Anesthesia Postop Eval I: Fluid Summary Crystalloid volume administer 300 01/08/25 15:08 APPLICATION SUPPORT DEVELOPER.JDEF (ml) Colloids volume administered ( ml) Blood Product volume administered (ml) Total IV fluid infused 300 01/08/25 15:08 APPLICATION SUPPORT DEVELOPER.JDEF Anesthesia Postop Eval I: Summary Notes Anesthesia Complication No 01/08/25 15:08 APPLICATION SUPPORT DEVELOPER.JDEF Anesthesia Complication Comment: Post-operative progress note Anesthesia: Postop Eval II Evaluation Mental status: Awake Pain Level: 0 nausea: No Vomiting: No 01/08/25 1530 <Electronically signed by Clyde Starks MD > Date _ Clyde Starks MD Cosigner Signature: Date CC: ~ Signed [facility] Work Phone: Consult note Author Rebecca Mathews [facility] Note Date/Time January 08, 2025 3:[address] [facility] Medical Records Department [address] [place] [address] Anesthesia Postop Eval I 01/08/25 1553 MR#: [id number] Acct: [id number] Name: HOWARD HALL Rep #:[id number] : 1980 44 From: Rebecca Mathews APPLICATION SUPPORT DEVELOPER PCP: Dr. David Ghotra, DO Status:REG SDC Y Race: C Location: [place] [address] Anesthesia: Postop Eval I Current Vital Signs [...] 01/08/25 1554 <Electronically signed by Rebecca rice APPLICATION SUPPORT DEVELOPER> Date _ Rebecca Mathews APPLICATION SUPPORT DEVELOPER Cosigner Signature: Date CC: ~ Signed [facility] Work Phone: Discharge summary Author Feliciano Castellon [facility] Note Date/Time January 08, 2025 3:10 pm [facility] Medical Records Department [address] [place] [address] Instructions for Home/Discharge Instructions 01/08/25 1507 MR#: [id number] Acct: [id number] Name: HOWARD HALL Rep #:[id number] : [...] to schedule 2 week follow up appointment. [phone] Test Results: Test results from this visit will be discussed in further detail at your follow- up appointment, if applicable. Discharge Plan Admission Attending Provider: Feliciano Castellon Primary Care Provider: David Ghotra Print Language: Nepalese Discharge Orders/Prescriptions Prescriptions: No Action citalopram 40 mg tablet 40 mg PO QDAY Referrals / Follow Up: David Ghotra DO [Primary Care Provider] - Disposition Disposition (needs filled in before D/C Order can be placed): Home, Self Care 01/08/25 1510<Electronically signed by Feliciano Castellon MD>Feliciano Castellon MD CC: Dr. David Ghotra, ~ Signed [facility] Work Phone: Evaluation note* Diagnosis Fibrocystic breast changes, left- Primary Breast pain Mastodynia documented in this encounter [facility] Author Feliciano Castellon [facility] Note Date/Time January 08, 2025 2:22 pm [facility] Medical Records Department [address] [place] [address] H&P Exam - Surgical 01/08/25 1420 MR#: [id number] Acct: [id number] Name: HOWARD HALL Rep #:[id number] : 1980 44 From: Feliciano salazar MD PCP: Dr. David Ghotra DO Status:REG [facility] Location: [place] [address] HPI - General HPI Narrative HOWARD HALL, [...] willing to proceed. Feliciano Castellon MD Pager: [facility] [address] [place] [address], [address] [place] [address] Office: 01/08/25 1422 <Electronically signed by Feliciano Castellon MD> Cosigner Signature (if applicable): CC: Dr. Feliciano Castellon MD; Dr. David Ghotra DO~ Signed [facility] Work Phone: Progress note Author Kelsey Holland [facility] Note Date/Time May 07, 2025 9: 59am [facility] [address] [place] [address] OFFICE VISIT Date of Service: 05/07/25 0904 MR#: [id number] Acct: [id number] Name: HOWARD HALL Rep #: [id number] : 1980 From: Kelsey Morse PATIENT SERVICES SPECIALIST PATIENT SERVICES SPECIALIST-C Age/Sex: 44/F Location: [facility] Status: Signed HPI Subjective Date of [...] in 100% of tumor cells PROGESTERONE RECEPTOR (NC): Positive, strong immunoreactivity in 100% of tumor [...] intake estimated at 16 oz per day. 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 [...] Cosigner Signature: Date (if applicable) CC: ~ [facility] Work Phone: Reason for referral (narrative)* Diagnostic Procedure Only (Routine) - Authorized Specialty Diagnoses / Procedures Referred By Julisa tinoco Referred To Contact [facility] Diagnoses Fibrocystic breast changes, left Breast pain Procedures YARELY DIAGNOSTIC BILAT DIAGNOSTIC MAMMOGRAPHY COMPUTER-AIDED DETCJ BI Faith Chavez APRN.CNP [address] [place] [address] [facility] [address] [place] [phone] Referral ID Status Reason Start Date Expiration Date Visits Requested Visits Authorized [id number] Authorized Auto-Generat ed Referral 03/01/2022 03/31/2023 1 1 * Diagnostic Procedure Only (Routine) - Pending Review Specialty Diagnoses / Procedures Referred By Julisa tinoco Referred To Contact [facility] Diagnoses Fibrocystic breast changes, left Breast pain Procedures US BREAST LTD LT US BREAST UNI REAL TIME WITH IMAGE LIMITED Faith Chavez APRN.CNP [address] [place] [address] [facility] [address] [place] [address] Referral ID Status Reason Start Date Expiration Date Visits Requested Visits Authorized [id number] Pending Review Auto-Generat ed Referral 03/01/2022 03/31/2023 1 1 [facility]ative)No reason for referral [facility] Work Phone: Summary Purpose Family History [...] Do you have a Healthcare Power of Upward Bound Director? No January 02, 2025 1:24pm Advance Directive Response Recorded Date/ Time Do you have a Healthcare Power of Upward Bound Director? No January 02, 2025 1:24pm Living Will No February 14, 2025 3:45pm Do you have a Healthcare Power of Upward Bound Director? No February 14, 2025 3:45pm Advance Directives No February 14 3:45pm Advance Directive Response Recorded Date/ Time Do you have a Healthcare Power of Upward Bound Director? No January 02, 2025 1:24pm Living Will No March 12 9:20am Do you have a Healthcare Power of Upward Bound Director? No March 12, 2025 9:20am Advance Directives No March 12, 2025 9:20am Advance Directive Response Recorded Date/ Time Do you have a Healthcare Power of Upward Bound Director? No January 02, 2025 1:24pm Living Will No April 02 10:20am Do you have a Healthcare Power of Upward Bound Director? No April 02, 2025 10:20am Advance Directives No March 10:20am Advance Directive Response Recorded Date/ Time Do you have a Healthcare Power of Upward Bound Director? No January 02, 2025 1:24pm Living Will No May 07 8:58am Do you have a Healthcare Power of Upward Bound Director? No May 07, 2025 8:58am Advance Directives [...] Regional lymph node metastasis present J formerly [facility] 2024 11:16am Breast cancer February 05, 2025 3:23p m Encounter for education February 05, 2025 3 :23pm Regional lymph node metastasis present J [facility] [place] 2024 3:23pm Chief Complaint Admit Date LUMP [...] Regional lymph node metastasis present J formerly [facility] 2024 11:16am Breast cancer February 05, 2025 3:23p m Encounter for education February 05, 2025 3 :23pm Regional lymph node metastasis present J [facility] 2024 3:23pm Breast cancer February 13, 2025 7:45 am Encounter for antineoplastic chemotherap y and immunotherapy February 13, 2025 7:45am Regional lymph node metastasis present J [facility] 2024 7:45am Chief Complaint Admit Date LUMP [...] Regional lymph node metastasis present J formerly [facility] 2024 11:16am Breast cancer February 05, 2025 3:23p m Encounter for education February 05, 2025 3 :23pm Regional lymph node metastasis present J [facility] 2024 3:23pm Breast cancer February 13, 2025 7:45 am Encounter for antineoplastic chemotherap y and immunotherapy February 13, 2025 7:45am Regional lymph node metastasis present J [facility] 2024 7:45am Breast cancer February 20, 2025 2:49 pm Diarrhea due to drug February 20, 2025 2:4 9pm Dysuria February 20, 2025 2:49 pm Regional lymph node metastasis present J [facility] 2024 2:49pm Breast cancer March 12, 2025 [...] Regional lymph node metastasis present J [facility] 2024 11:16am Breast cancer February 05, 2025 3:23p m Encounter for education February 05, 2025 3 :23pm Regional lymph node metastasis present J [facility] 2024 3:23pm Breast cancer February 13, 2025 7:45 am Encounter for antineoplastic chemotherapy and immunotherapy February 13, 2025 7:45am Regional lymph node metastasis present J [facility] 2024 7:45am Breast cancer February 20, 2025 2:49 pm Diarrhea due to drug February 20, 2025 2:4 9pm Dysuria February 20, 2025 2:49 pm Regional lymph node metastasis present J [facility] 2024 2:49pm Breast cancer March 12, 2025 [...] Regional lymph node metastasis present J [facility] 2024 11:16am Breast cancer February 05, 2025 3:23p m Encounter for education February 05, 2025 3 :23pm Regional lymph node metastasis present J [facility] 2024 3:23pm Breast cancer February 13, 2025 7:45 am Encounter for antineoplastic chemotherapy and immunotherapy February 13, 2025 7:45am Regional lymph node metastasis present J [facility] 2024 7:45am Breast cancer February 20, 2025 [...] or prosecute any alcohol or drug abuse patient.[facility] Reason for Visit (unrecogniz ed section and content) Reason Comments left breast lump Care Teams (unrecognized sec tion and content) Family Life Counselor Relationship Specialty Start Date End Date David [...] 09, 2024 End: December 09, 2024 Dr. Dvaid Ghotra DO Referring Provider Active Start: December [...] End: February 05, 2025 Kelsey Holland NP, PATIENT SERVICES SPECIALIST-C Attending Provider Active Start: February 05, 2025 [...] 2025 End: February 05, 2025 Kelsey Holland PATIENT SERVICES SPECIALIST, PATIENT SERVICES SPECIALIST-C Attending Provider Active Start: February 05, 2025 [...] 2025 End: February 13, 2025 Kelsey Holland PATIENT SERVICES SPECIALIST, PATIENT SERVICES SPECIALIST-C Attending Provider Active Start: February 13, 2025 End: February 13, 2025 Team Status: Inactive Member Role/Relationship Status Dates Dr. David Ghotra DO Primary Care Provider Active Start: February 13, 2025 End: February 13, 2025 Dr. David Ghotra DO Referring Provider Active Start: February 13, 2025 End: February 13, 2025 Kelsey Holland PATIENT SERVICES SPECIALIST, PATIENT SERVICES SPECIALIST-C Attending Provider Active Start: February 13, 2025 [...] 2025 End: February 20, 2025 Kelsey Holland PATIENT SERVICES SPECIALIST, PATIENT SERVICES SPECIALIST-C Attending Provider Active Start: February 20, 2025 End: February 20, 2025 Team Status: Inactive Member Role/Relationship Status Dates Dr. David Ghotra DO Primary Care Provider Active Start: February 20, 2025 End: February 20, 2025 Dr. David Ghotra DO Referring Provider Active Start: February 20, 2025 End: February 20, 2025 Kelsey Amalia PATIENT SERVICES SPECIALIST, PATIENT SERVICES SPECIALIST-C Attending Provider Active Start: February 20, 2025 [...] Status: Inactive Member Role/Relationship Status Dates Dr. Davdi Ghotra DO Primary Care Provider Active Start: [...] 2025 End: February 05, 2025 Kelseycarmen Holland PATIENT SERVICES SPECIALIST, PATIENT SERVICES SPECIALIST-C Attending Provider Active Start: February 05, 2025 [...] 2025 End: February 13, 2025 Kelsey Amalia PATIENT SERVICES SPECIALIST, PATIENT SERVICES SPECIALIST-C Attending Provider Active Start: February 13, 2025 End: February 13, 2025 Team Status: Inactive Member Role/Relationship Status Dates Dr. David Ghotra DO Primary Care Provider Active Start: February 20, 2025 End: February 20, 2025 Dr. David Ghotra DO Referring Provider Active Start: February 20, 2025 End: February 20, 2025 Kelsey Maalia PATIENT SERVICES SPECIALIST, PATIENT SERVICES SPECIALIST-C Attending Provider Active Start: February 20, 2025 [...] Provider Active Start: January 08, 2025 Dr. Felicaino Castellon MD Nurse Practitioner Active Start: January [...] End: February 05, 2025 Kelsey Holland NP, PATIENT SERVICES SPECIALIST-C Attending physician Active Start: February 05, 2025 [...] 2025 End: February 13, 2025 Kelsey Holland PATIENT SERVICES SPECIALIST, PATIENT SERVICES SPECIALIST-C Attending physician Active Start: February 13, 2025 End: February 13, 2025 Team Status: Inactive Member Role/Relationship Status Dates Dr. David Ghotra DO Primary care physician Active Start: February 20, 2025 End: February 20, 2025 Dr. David Ghotra DO Referring Provider Active Start: February 20, 2025 End: February 20, 2025 Kelsey Holland PATIENT SERVICES SPECIALIST, PATIENT SERVICES SPECIALIST-C Attending physician Active Start: February 20, 2025 [...] 2025 End: May 07, 2025 Kelsey Holland PATIENT SERVICES SPECIALIST, PATIENT SERVICES SPECIALIST-C Attending physician Active Start: May 07, 2025 End: May 07, 2025 INFORMATION SOURCE (unrecogn ized section and content) DATE CREATED AUTHOR 05/01/2022 [facility] DATE CREATED AUTHOR AUTHOR'S ORGANIZ ATION 05/22/2025 [facility] DATE CREATED AUTHOR AUTHOR'S ORGANIZ ATION 06/07/2025 [facility] Goals (unrecognized section and content) [...] BE BASED ON THE PRIMARY CLINICAL RECORDS. [employer] provides no warranty or guarantee of the accuracy or completeness of information in this document.
--- OUTSIDE RECORDS SUMMARY | 2025-06-28 05:49 | XMS RPT_ITS | CCD ---
Author Organization [facility] Care Team Providers Care Tricot Knitter Name Role Phone David Ghotra DO Primary [...] Dr. Feliciano Castellon MD Referring Provider [phone] Dr. Arnaud Borja MD Attending Provider Dr. [...] Dr. David Ghotra DO Referring Provider Amalia HORIZONTAL [employer]ING MILL SET UP OPERATOR-C, Kelsey Attending Physician Jacobo MOSELEY, Dr. Kerr Attending Physician DAVID GHOTRA Primary Care Unavailable MATTHEW STONE Attending Unava ilable Alec David Primary Care Unavailable Alec David Attending Unavailable Alec, David Primary Care Unavailable Alec, David Referring Unavailable AlecDavid Attending Unavailable Amalia [employer]IZONT[employer] BORING MILL SET UP OPERATOR, Kelsey Attending Unavailable AlecDavid Referring Unavailable Alec, [...] Care Unavailable AlecDavid spivey Attending Unavailable Amalia [employer]IZ[employer]ING MILL SET UP OPERATOR, Kelsey Attending Unavailable AlecDavid Referring Unavailable Alec, [...] aquino Attending Unavailable AlecDavid Referring Unavailable Amalia [employer]IZ[employer]ING MILL SET UP OPERATOR, Kelsey Attending Unavailable Alec, David Primary Care Unavailable Alec, David Primary Care Unavailable Alec, David Referring Unavailable Amalia [employer]IZ[employer]ING MILL SET UP OPERATOR, Kelsey Attending Unavailable Alec, David Primary Care [...] Care Unavailable Arnaud Borja Attending Unavailable Amalia [employer]IZ[employer]ING MILL SET UP OPERATOR, Kelsey Attending Unavailable David Ghotra Primary Care [...] Take 27 mg by mouth once daily. 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, [address] CBC W/Diff, Automatedon 10- Absolute Lymph 1.83 X10 3/uL Normal 0.83-4.51 [facility] Comment on above: Performed By: #### L 501.2300 #### [facility] [address] [place], [address] Absolute Neut 2.3 X10 3/uL Normal 2.0-7.7 [facility] Comment on above: Performed By: #### L 501.2300 #### [facility] [address] [place], [address] Basophils/100 WBC (Bld) 0.4 % Normal 0-1 [facility] Comment on above: Performed By: #### L 501.2300 #### [facility] [address] [place], [address] Eosinophils/100 WBC (Bld) 0.0 % Normal 0-5 [facility] Comment on above: Performed By: #### L 501.2300 #### [facility] [address] [place], [address] Erythrocyte distribution width (RBC) [Ratio] 17.6 % High 11.6-14.6 [facility] Comment on above: Performed By: #### L 501.2300 #### [facility] [address] [place], [address] Hematocrit (Bld) [Volume fraction] 22.5 % Low 37-47 [facility] Comment on above: Performed By: #### L 501.2300 #### [facility] [address] [place], [address] Hemoglobin (Bld) [Mass/Vol] 7.4 g/dL Low 12.0-15.0 [facility] Comment on above: Performed By: #### L 501.2300 #### [facility] [address] [place], [address] IG% 0.400 Normal 0.0-0.9 [facility] Comment on above: Result Comment: IG% - Immature Granulocytes (promyelocytes, myelocytes and metamyelocytes) > 1% indicates that a LEFT SHIFT is Present. Performed By: #### L 501.2300 #### [facility] [address] [place], [address] Lymphocytes/100 WBC (Bld) 39.4 % Normal 19-41 [facility] Comment on above: Performed By: #### L 501.2300 #### [facility] [address] [place], [address] MCH (RBC) [Entitic mass] 31.2 pg Normal 27.0-32.0 [facility] Comment on above: Performed By: #### L 501.2300 #### [facility] [address] [place], [address] MCHC (RBC) [Mass/Vol] 32.9 g/dL Normal 32-36 [facility] Comment on above: Performed By: #### L 501.2300 #### [facility] [address] [place], [address] MCV (RBC) [Entitic vol] 94.9 fL Normal 81-99 [facility] Comment on above: Performed By: #### L 501.2300 #### [facility] [address] [place], [address] Monocytes/100 WBC (Bld) 11.2 % High 0-10 [facility] Comment on above: Performed By: #### L 501.2300 #### [facility] [address] [place], [address] Neutrophils/100 WBC (Bld) 48.6 % Normal 47-70 [facility] Comment on above: Performed By: #### L 501.2300 #### [facility] [address] [place], [address] Nucleated RBC (Bld) [#/Vol] 0 10*3/uL Normal 0-5 [facility] Comment on above: Performed By: #### L 501.2300 #### [facility] [address] [place], [address] Platelet mean volume (Bld) [Entitic vol] 9.9 fL Normal 6.2-12.0 [facility] Comment on above: Performed By: #### L 501.2300 #### [facility] [address] [place], [address] Platelets (Bld) [#/Vol] 270 10*3/uL Normal 150-450 [facility] Comment on above: Performed By: #### L 501.2300 #### [facility] [address] [place], [address] RBC (Bld) [#/Vol] 2.37 10*6/uL Low 4.2-5.4 [facility] Comment on above: Performed By: #### L 501.2300 #### [facility] [address] [place], [address] RDW SD 59.4 fl High 35.1-43.9 [facility] Comment on above: Performed By: #### L 501.2300 #### [facility] [address] [place], [address] WBC (Bld) [#/Vol] 4.7 10*3/uL Normal 4.4-11.0 [facility] Comment on above: Performed By: #### L 501.2300 #### [facility] [address] [place], [address] Comprehensive Metabolic Prof ilon 05-28-2025 Albumin [Mass/Vol] 3.8 g/dL Normal 3.5-5.0 [facility] Comment on above: Performed By: #### L 501.2300 #### [facility] [address] [place], [address] Albumin/Globulin [Mass ratio] 1.3 {ratio} Normal 0.9-2.4 [facility] Comment on above: Performed By: #### L 501.2300 #### [facility] [address] [place], [address] ALK PHOS 102 U/L Normal 35-104 [facility] Comment on above: Performed By: #### L 501.2300 #### [facility] [address] [place], [address] ALT [Catalytic activity/Vol] 18 U/L Normal <=34 [facility] Comment on above: Performed By: #### L 501.2300 #### [facility] [address] [place], [address] AST [Catalytic activity/Vol] 22 U/L Normal <=31 [facility] Comment on above: Performed By: #### L 501.2300 #### [facility] [address] [place], [address] BUN/CRE 18.4 RATIO Normal 10-20 [facility] Comment on above: Performed By: #### L 501.2300 #### [facility] [address] [place], [address] Calcium [Mass/Vol] 9.3 mg/dL Normal 7.6-11.0 [facility] Comment on above: Performed By: #### L 501.2300 #### [facility] [address] [place], [address] Chloride [Moles/Vol] 108 mmol/L Normal 98-108 [facility] Comment on above: Performed By: #### L 501.2300 #### [facility] [address] [place], [address] CO2 [Moles/Vol] 23.0 mmol/L Normal 21.0-32.0 [facility] Comment on above: Performed By: #### L 501.2300 #### [facility] [address] [place], [address] Creatinine [Mass/Vol] 0.75 mg/dL Normal 0.70-1.20 [facility] Comment on above: Performed By: #### L 501.2300 #### [facility] [address] [place], [address] ECRCL 86.13 ml/min Normal 50-250 [facility] Comment on above: Performed By: #### L 501.2300 #### [facility] [address] [place], [address] GAP 12 Normal 5-15 [facility] Comment on above: Performed By: #### L 501.2300 #### [facility] [address] [place], [address] GFR/1.73 sq M.predicted among non-blacks MDRD (S/P/Bld) [Vol rate/Area] 100 mL/min/{1.73_m2} Normal >60 [facility] Comment on above: Result Comment: mL/m in/1.73m2 CKD-EPI Creatinine Equation (2020) Performed By: #### L 501.2300 #### [facility] [address] [place], [address] Globulin (S) [Mass/Vol] 3.0 g/dL Normal 2.2-4.2 [facility] Comment on above: Performed By: #### L 501.2300 #### [facility] [address] [place], [address] Glucose [Mass/Vol] 129 mg/dL High 70-99 [facility] Comment on above: Performed By: #### L 501.2300 #### [facility] [address] [place], [address] Potassium [Moles/Vol] 3.5 mmol/L Normal 3.3-5.1 [facility] Comment on above: Performed By: #### L 501.2300 #### [facility] [address] [place], [address] Sodium [Moles/Vol] 143 mmol/L Normal 133-145 [facility] Comment on above: Performed By: #### L 501.2300 #### [facility] [address] [place], [address] T BILI < 0.15 Normal 0.00-1.30 [facility] Comment on above: Performed By: #### L 501.2300 #### [facility] [address] [place], [address] T PROT 6.8 g/dL Normal 5.9-8.4 [facility] Comment on above: Performed By: #### L 501.2300 #### [facility] [address] [place], [address] Urea nitrogen [Mass/Vol] 14 mg/dL Normal 4-19 [facility] Comment on above: Performed By: #### L 501.2300 #### [facility] [address] [place], [address] Ferritinon 05-28-2025 Ferritin [Mass/Vol] 239 ng/mL Normal 22-378 [facility] Comment on above: Performed By: #### L 503.6030, L503.6550 ####[facility] [address] [place], [address] Iron+Iron Binding Capacityon 05-28-2025 Iron [Mass/Vol] 48 ug/dL Low 50-170 [facility] Comment on above: Performed By: #### L 503.6030, L503.6550 ####[facility] [address] [place], [address] IRON SATURATION 17.5 Normal 13-59 [facility] Comment on above: Performed By: #### L 503.6030, L503.6550 ####[facility] [address] [place], [address] TIBC 274 ug/dL Normal 250-450 [facility] Comment on above: Performed By: #### L 503.6030, L503.6550 ####[facility] [address] [place], [address] UIBC 226 ug/dL Low 228-428 [facility] Comment on above: Performed By: #### L 503.6030, L503.6550 ####[facility] [address] [place], [address] Magnesiumon 05-28-2025 Magnesium [Mass/Vol] 1.8 mg/dL Normal 1.5-2.2 [facility] Comment on above: Performed By: #### L 501.2300 #### [facility] [address] [place], [address] Oncology Visit Reporton 05-01 Oncology Visit Report [facility] [address] [place] [address] OFFICE VISIT Date of Service: 05/28/25819 MR#: [id number] Acct: [id number] Name: HOWARD HALL Rep #: [id number] : 1980 From: Kelsey Amalia LOPEZ HORIZONTAL BORING MILL SET UP OPERATOR PatyC Age/Sex: 44/F Location: [facility] Status: Signed HPI Subjective Date of [...] in 100% of tumor cells 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 Treatment summary and response: [facility] February 13, 2025 (C4 delayed by 2 weeks d/t patient no shows) Interval History The patient is presenting to clinic for an evaluat (more content not included)... Normal [facility] Type AND Screenon 05-28-2025 Ab SCREEN GEL Negative Normal [facility] Comment on above: Order Comment: N1 [id number] Performed By: #### B ARIES, [facility] ####[facility] [address] [place], [place], [address] ABO and Rh group Nom (Bld) Blood group B Rh(D) positive [facility] Comment on above: Order Comment: [id number] Performed By: #### B ARIES, [facility] ####[facility] [address] [place], [place], [address] ALLIED HEALTHon 05-15-2025 ALLIED HEALTH HNO ID: [id number] Author: JEIMY SPENCE RT(R) Service: Radiology Author Type: Customer Relations Advisor Type: Allied Health Filed: 05/15/2025 10:57 Note [...] PATIENT PRESENTS WITH AN IMPLANTABLE OR ATTACHED NURSE OB: No RADIOLOGY DEPARTMENT: General X-ray: Exam(s) Completed: Chest X-Ray PERIPHERAL IV DATA: Not applicable SIGNED BY: RT Debo(R) May 15, 2025 10:56 AM [facility] Bacteria Bld Culton 05-15-20 Bacteria identified Cx Nom (Bld) CULTURE, BLOOD: No growth 5 days Normal [facility] Comment on above: Performed By: #### 6 00-7 #### [facility] CLIA [id number] [address] STATES OF [facility] CBC W Auto Differential pane l (Bld)on 05-15-2025 Anisocytosis Ql (Bld) Present Normal [facility] Comment on above: Order Comment: Speci men Type: BLOOD SPECIMENOrdering Facility: [facility] Address: [address] [place] [address] Performed By: #### 5 7021-8 ####[facility] [place] LABCLIA [id number] [place] [phone] [facility] Basophils (Bld) [#/Vol] 0.00 10*3/uL Normal <0.11 [facility] Comment on above: Order Comment: Speci men Type: BLOOD SPECIMENOrdering Facility: [facility] Address: [address] [place] [address] Performed By: #### 5 7021-8 ####[facility] LAB[facility] [id number] [place] [phone] [facility] Basophils/100 WBC (Bld) 0.0 % Normal [facility] Comment on above: Order Comment: Speci men Type: BLOOD SPECIMENOrdering Facility: [facility] Address: [address] [place] [address] Performed By: #### 5 7021-8 ####[facility] LABCLIA [id number] [place] [phone] [facility] Differential cell count method Nom (Bld) Manual Normal [facility] Comment on above: Order Comment: Speci men Type: BLOOD SPECIMENOrdering Facility: [facility] Address: [address] [place] [address] Performed By: #### 5 7021-8 ####[facility] [place] LABCLIA [id number] [place] [phone] [place] Eosinophils (Bld) [#/Vol] 0.00 10*3/uL Normal <0.46 [facility] Comment on above: Order Comment: Speci men Type: BLOOD SPECIMENOrdering Facility: [facility] Address: [address] [place] [address] Performed By: #### 5 7021-8 ####[facility] [place] LABCLIA [id number] [place] [address] [place] Eosinophils/100 WBC (Bld) 0.0 % Normal [facility] Comment on above: Order Comment: Speci men Type: BLOOD SPECIMENOrdering Facility: [facility] Address: [address] [place] [address] Performed By: #### 5 7021-8 ####[facility] [place] LABCLIA [id number] [facility] [address] [facility] [place] Erythrocyte distribution width (RBC) [Ratio] 16.2 % High 11.5-15.0 [facility] Comment on above: Order Comment: Speci men Type: BLOOD SPECIMENOrdering Facility: [facility] Address: [address] [place] [address] Performed By: #### 5 7021-8 ####[facility] LABCLIA [id number] [place] [address] [facility] Hematocrit (Bld) [Volume fraction] 26.3 % Low 36.0-46.0 [facility] Comment on above: Order Comment: Speci men Type: BLOOD SPECIMENOrdering Facility: [facility] Address: [address] [place] [address] Performed By: #### 5 7021-8 ####[facility] [place] LABCLIA [id number] [place] [address] [place] Hemoglobin (Bld) [Mass/Vol] 8.5 g/dL Low 11.5-15.5 [facility] Comment on above: Order Comment: Speci men Type: BLOOD SPECIMENOrdering Facility: [facility] Address: [address] [place] [address] Performed By: #### 5 7021-8 ####[facility] [place] LABCLIA [id number] [place] [address] [facility] [place] Lymphocytes (Bld) [#/Vol] 1.58 10*3/uL Normal 1.00-4.00 [facility] Comment on above: Order Comment: Speci men Type: BLOOD SPECIMENOrdering Facility: [facility] Address: [address] [place] [address] Performed By: #### 5 7021-8 ####[facility] LABCLIA [id number] [place] [address] [facility] Lymphocytes/100 WBC (Bld) 27.0 % Normal [facility] Comment on above: Order Comment: Speci men Type: BLOOD SPECIMENOrdering Facility: [facility] Address: [address] [place] [address] Performed By: #### 5 7021-8 ####[facility] LABCLIA [id number] [place] [address] [place] MCH (RBC) [Entitic mass] 30.6 pg Normal 26.0-34.0 [facility] Comment on above: Order Comment: Speci men Type: BLOOD SPECIMENOrdering Facility: [facility] Address: [address] [place] [address] Performed By: #### 5 7021-8 ####[facility] LABCLIA [id number] [place] [phone] [place] MCHC (RBC) [Mass/Vol] 32.3 g/dL Normal 30.5-36.0 [facility] Comment on above: Order Comment: Speci men Type: BLOOD SPECIMENOrdering Facility: [facility] Address: [address] [place] [address] Performed By: #### 5 7021-8 ####[facility] LABCLIA [id number] [place] [address] [place] MCV (RBC) [Entitic vol] 94.6 fL Normal 80.0-100.0 [facility] Comment on above: Order Comment: Speci men Type: BLOOD SPECIMENOrdering Facility: [facility] Address: [address] [place] [address] Performed By: #### 5 7021-8 ####[facility] [place] LABCLIA [id number] [facility] [place] [address] [place] Monocytes (Bld) [#/Vol] 1.29 10*3/uL High <0.87 [facility] Comment on above: Order Comment: Speci men Type: BLOOD SPECIMENOrdering Facility: [facility] Address: [address] [place] [address] Performed By: #### 5 7021-8 ####[facility] [place] LABCLIA [id number] [facility] [place] [address] [place] Monocytes/100 WBC (Bld) 22.0 % Normal [facility] Comment on above: Order Comment: Speci men Type: BLOOD SPECIMENOrdering Facility: [facility] Address: [address] [place] [address] Performed By: #### 5 7021-8 ####[facility] [place] LABCLIA [id number] [facility] [place] [address] [place] Neutrophils (Bld) [#/Vol] 2.99 10*3/uL Normal 1.45-7.50 [facility] Comment on above: Order Comment: Speci men Type: BLOOD SPECIMENOrdering Facility: [facility] Address: [address] [place] [address] Performed By: #### 5 7021-8 ####[facility] [place] LABCLIA [id number] [facility] [address] [place] Neutrophils/100 WBC (Bld) 51.0 % Normal [facility] Comment on above: Order Comment: Speci men Type: BLOOD SPECIMENOrdering Facility: [facility] Address: [address] [place] [address] Performed By: #### 5 7021-8 ####[facility] [place] LABCLIA [id number] [place] [address] [place] Nucleated RBC (Bld) [#/Vol] 10*3/uL Normal <0.01 [facility] Comment on above: Order Comment: Speci men Type: BLOOD SPECIMENOrdering Facility: [facility] Address: [address] [place] [address] Performed By: #### 5 7021-8 ####[facility] [place] LABCLIA [id number] [place] [address] [facility] Nucleated RBC/100 WBC (Bld) [Ratio] 0.0 /100 WBC Normal [facility] Comment on above: Order Comment: Speci men Type: BLOOD SPECIMENOrdering Facility: [facility] Address: [address] [place] [address] Performed By: #### 5 7021-8 ####[facility] [place] LABCLIA [id number] [place] [address] [facility] Platelet mean volume (Bld) [Entitic vol] 10.1 fL Normal 9.0-12.7 [facility] Comment on above: Order Comment: Speci men Type: BLOOD SPECIMENOrdering Facility: [facility] Address: [address] [place] [address] Performed By: #### 5 7021-8 ####[facility] [place] LABCLIA [id number] [facility] [place] [address] [facility] Platelets (Bld) [#/Vol] 130 10*3/uL Low 150-400 [facility] Comment on above: Order Comment: Speci men Type: BLOOD SPECIMENOrdering Facility: [facility] Address: [address] [place] [address] Result Comment: No c lot detected. Performed By: #### 5 7021-8 ####[facility] [place] LABCLIA [id number] [place] [address] [facility] Platelets Estimate (Bld) [#/Vol] Decreased Normal [facility] Comment on above: Order Comment: Speci men Type: BLOOD SPECIMENOrdering Facility: [facility] Address: [address] [place] [address] Performed By: #### 5 7021-8 ####[facility] [place] LABCLIA [id number] [place] [address] [facility] RBC (Bld) [#/Vol] 2.78 10*6/uL Low 3.90-5.20 [facility] Comment on above: Order Comment: Speci men Type: BLOOD SPECIMENOrdering Facility: [facility] Address: [address] [place] [address] Performed By: #### 5 7021-8 ####[facility] [place] LABCLIA [id number] [place] [address] [facility] RED CELL MORPH Reviewed: see result s of individual morphologies Normal [facility] Comment on above: Order Comment: Speci men Type: BLOOD SPECIMENOrdering Facility: [facility] Address: [address] [place] [address] Performed By: #### 5 7021-8 ####[facility] [place] LABCLIA [id number] [place], [place] [id number] [place] [address] Toxic granules LM Ql (Bld) Present Normal [facility] Comment on above: Order Comment: Speci men Type: BLOOD SPECIMENOrdering Facility: [facility] Address: [address] [place] [address] Performed By: #### 5 7021-8 ####[facility] [id number] [address] WBC (Bld) [#/Vol] 5.87 10*3/uL Normal 3.70-11.00 [facility] Comment on above: Order Comment: Speci men Type: BLOOD SPECIMENOrdering Facility: [facility] Address: [address] [place] [address] Performed By: #### 5 7021-8 ####[facility] [id number] [place] [id number] [facility] WBC Left Shift Ql (Bld) Present Normal [facility] Comment on above: Order Comment: Speci men Type: BLOOD SPECIMENOrdering Facility: [facility] Address: [address] [place] [address] Performed By: #### 5 7021-8 ####[facility] [id number] [place] [address] [facility] Comprehensive metabolic 2000 panelon 05-15-2025 Albumin [Mass/Vol] 4.1 g/dL Normal 3.9-4.9 [facility] Comment on above: Order Comment: Speci men Type: BLOOD SPECIMEN Ordering Facility: [facility] Address: [address] [place] [address] Performed By: #### 2 4323-8, 3040-3 #### [facility] CLIA [id number] [address] [place] [address] [place] ALP [Catalytic activity/Vol] 123 U/L Normal 34-123 [facility] Comment on above: Order Comment: Speci men Type: BLOOD SPECIMEN Ordering Facility: [facility] Address: [address] [place] [address] Performed By: #### 2 4323-8, 3040-3 #### [facility] CLIA [id number] [address] [place] [address] [place] [facility] ALT With P-5'-P [Catalytic activity/Vol] 18 U/L Normal 7-38 [facility] Comment on above: Order Comment: Speci men Type: BLOOD SPECIMEN Ordering Facility: [facility] Address: [address] [place] [address] Performed By: #### 2 4323-8, 3040-3 #### [facility] CLIA [id number] [address] [place] [address] [place] [facility] Anion gap [Moles/Vol] 13 mmol/L Normal 8-15 [facility] Comment on above: Order Comment: Speci men Type: BLOOD SPECIMEN Ordering Facility: [facility] Address: [address] [place] [address] Performed By: #### 2 4323-8, 3040-3 #### [facility] CLIA [id number] [address] [place] [address] [place] AST With P-5'-P [Catalytic activity/Vol] 18 U/L Normal 13-35 [facility] Comment on above: Order Comment: Speci men Type: BLOOD SPECIMEN Ordering Facility: [facility] Address: [address] [place] [address] Performed By: #### 2 4323-8, 3040-3 #### [facility] CLIA [id number] [address] [place] [address] [place] Bilirubin [Mass/Vol] 0.2 mg/dL Normal 0.2-1.3 [facility] Comment on above: Order Comment: Speci men Type: BLOOD SPECIMEN Ordering Facility: [facility] Address: [address] [place] [address] Performed By: #### 2 4323-8, 3039-3 #### [facility] CLIA [id number] [address] [place] [address] [place] Calcium [Mass/Vol] 9.6 mg/dL Normal 8.5-10.2 [facility] Comment on above: Order Comment: Speci men Type: BLOOD SPECIMEN Ordering Facility: [facility] Address: [address] [place] [address] Performed By: #### 2 4323-8, 0-3 #### [facility] CLIA [id number] [address] [place] [address] [place] Chloride [Moles/Vol] 101 mmol/L Normal 98-107 [facility] Comment on above: Order Comment: Speci men Type: BLOOD SPECIMEN Ordering Facility: [facility] Address: [address] [place] [address] Performed By: #### 2 4323-8, 3040-3 #### [facility] CLIA [id number] [address] [place] [address] [place] CO2 [Moles/Vol] 22 mmol/L Normal 22-30 [facility] Comment on above: Order Comment: Speci men Type: BLOOD SPECIMEN Ordering Facility: [facility] Address: [address] [place] [address] Performed By: #### 2 4323-8, 3040-3 #### [facility] CLIA [id number] [address] [place] [address] [place] Creatinine [Mass/Vol] 0.70 mg/dL Normal 0.58-0.96 [facility] Comment on above: Order Comment: Aubree bowens Type: BLOOD SPECIMEN Ordering Facility: [facility] Address: [address] [place] [address] Performed By: #### 2 4323-8, 3039-3 #### [facility] CL[facility] [id number] [address] [place] [address] [place] eGFRcr SerPlBld CKD-EPI 2020 110 mL/min/1.73m??? Normal >=60 [facility] Comment on above: Order Comment: Aubree bowens Type: BLOOD SPECIMEN Ordering Facility: [facility] Address: [address] [place] [address] Result Comment: Isamar mated Glomerular Filtration Rate [...] Performed By: #### 2 4323-8, 3040-3 #### [facility] CLIA [id number] [address] [place] [address] [place] Glucose [Mass/Vol] 102 mg/dL High 74-99 [facility] Comment on above: Order Comment: Aubree bowens Type: BLOOD SPECIMEN Ordering Facility: [facility] Address: [address] [place] [address] Result Comment: The [place] Diabetes Association (ADA) provides guidance for cutoff [...] Standards of Medical Care in Diabetes 2016, [place] [employer]. Diabetes Care. 2016.39(Suppl 1). Performed By: #### 2 4323-8, 3040-3 #### [facility] CLIA [id number] [address] [place] [address] [place] Potassium [Moles/Vol] 3.7 mmol/L Normal 3.7-5.1 [facility] Comment on above: Order Comment: Speci men Type: BLOOD SPECIMEN Ordering Facility: [facility] Address: [address] [place] [address] Performed By: #### 2 4323-8, 0-3 #### [facility] CLIA [id number] [address] [place] [address] [place] Protein [Mass/Vol] 7.3 g/dL Normal 6.3-8.0 [facility] Comment on above: Order Comment: Speci men Type: BLOOD SPECIMEN Ordering Facility: [facility] Address: [address] [place] [address] Performed By: #### 2 4323-8, 0-3 #### [facility] CLIA [id number] [address] [place] [address] [place] Sodium [Moles/Vol] 136 mmol/L Normal 136-144 [facility] Comment on above: Order Comment: Speci men Type: BLOOD SPECIMEN Ordering Facility: [facility] Address: [address] [place] [address] Performed By: #### 2 4323-8, 3040-3 #### [facility] CLIA [id number] [address] [place] [address] [place] Urea nitrogen [Mass/Vol] 10 mg/dL Normal 7-21 [facility] Comment on above: Order Comment: Speci men Type: BLOOD SPECIMEN Ordering Facility: [facility] Address: [facility] [place] [address] Performed By: #### 2 4323-8, 3040-3 #### [facility] CLIA [id number] [address] [place] [address] [facility] ED NOTEon 05-15-2025 ED NOTE HNO ID: [id number] Author: FLORENCE RODRIGUEZ MD Service: Emergency Medicine [...] May 16, 2025 TIME: 9:27 AM Normal [facility] ED NOTE HNO ID: [id number] Author: REGINA CAMEJO RN Service: Emergency Medicine Author Type: Registered Nurse Type: ED Notes Filed: 05/15/2025 11:25 Note Text: 2nd set of blood cultures drawn from right chest port Normal [facility] ED PROV NOTEon 05-15-2025 ED PROV NOTE HNO ID: [id number] Author: MATTHEW STONE MD Service: Emergency Medicine [...] normal. Lact (more content not included)... Normal [facility] Lipase SerPl-cCncon 05-15-20 25 Lipase [Catalytic activity/Vol] 38 U/L Normal 16-61 [facility] Comment on above: Order Comment: Aubree bowens Type: BLOOD SPECIMENOrdering Facility: [facility] Address: [address] [place] [address] Performed By: #### 2 4323-8, 3040-3 ####[facility] LABCLIA [id number] [place] [address] [place] S pyo DNA Throat Ql AMINAH+prob castillo 05-15-2025 S. pyogenes DNA AMINAH+probe Ql (Throat) Not detected Normal Not detected [facility] Comment on above: Order Comment: Aubree bowens Type: SWAB Ordering Facility: [facility] Address: [address] [place] [address] Performed By: #### 6 0489-2 #### [facility] CLIA [id number] [address] [place] [address] [facility] SEPSIS LACTATEon 05-15-2025 Lactate [Moles/Vol] 1.2 mmol/L Normal <=2.0 [facility] Comment on above: Order Comment: Speci men Type: BLOOD SPECIMENOrdering Facility: [facility] Address: [address] [place] [address] Performed By: #### S LACT ####[facility] [id number] [place] [address] [facility] Urinalysis complete panel (U )on 05-15-2025 Bilirubin Ql (U) Negative Normal Negative [facility] Comment on above: Order Comment: Speci men Type: URINE SPECIMEN Ordering Facility: [facility] Address: [address] [place] [address] Performed By: #### 2 4356-8 #### [facility] CLIA [id number] [address] [place] [address] [facility] [place] Clarity (Unsp spec) Clear Normal Clear [facility] Comment on above: Order Comment: Speci men Type: URINE SPECIMEN Ordering Facility: [facility] Address: [address] [place] [address] Performed By: #### 2 4356-8 #### [facility] CLIA [id number] [address] [place] [address] [facility] [place] Color (U) Yellow Normal Yellow [facility] Comment on above: Order Comment: Speci men Type: URINE SPECIMEN Ordering Facility: [facility] Address: [address] [place] [address] Performed By: #### 2 4356-8 #### [facility] CLIA [id number] [address] [place] [address] [facility] [place] Epithelial cells LM.HPF (Urine sed) [#/Area] Moderate Normal [facility] Comment on above: Order Comment: Speci men Type: URINE SPECIMEN Ordering Facility: [facility] Address: [address] [place] [address] Performed By: #### 2 4356-8 #### [facility] CLIA [id number] [address] [place] [address] [facility] [place] Glucose Test strip (U) [Mass/Vol] Negative Normal Negative [facility] Comment on above: Order Comment: Speci men Type: URINE SPECIMEN Ordering Facility: [facility] Address: [address] [place] [address] Performed By: #### 2 4356-8 #### [facility] CLIA [id number] [address] [place] [address] [place] Hemoglobin Ql (U) Negative Normal Negative [facility] Comment on above: Order Comment: Speci men Type: URINE SPECIMEN Ordering Facility: [facility] Address: [address] [place] [address] Performed By: #### 2 4356-8 #### [facility] CLIA [id number] [address] [place] [address] [place] Ketones Ql (U) Negative Normal Negative [facility] Comment on above: Order Comment: Speci men Type: URINE SPECIMEN Ordering Facility: [facility] Address: [address] [place] [address] Performed By: #### 2 4356-8 #### [facility] CLIA [id number] [address] [place] [address] [place] Leukocyte esterase Test strip Ql (U) Negative Normal Negative [facility] Comment on above: Order Comment: Speci men Type: URINE SPECIMEN Ordering Facility: [facility] Address: [address] [place] [address] Performed By: #### 2 4356-8 #### [facility] CLIA [id number] [address] [place] [address] [place] Nitrite Ql (U) Negative Normal Negative [facility] Comment on above: Order Comment: Speci men Type: URINE SPECIMEN Ordering Facility: [facility] Address: [address] [place] [address] Performed By: #### 2 4356-8 #### [facility] CLIA [id number] [address] [place] [address] [place] pH (U) 6.0 [pH] Normal 5.0-8.0 [facility] Comment on above: Order Comment: Speci men Type: URINE SPECIMEN Ordering Facility: [facility] Address: [address] [place] [address] Performed By: #### 2 4356-8 #### [facility] CLIA [id number] [address] [place] [address] [place] Protein (U) [Mass/Vol] Negative Normal Negative [facility] Comment on above: Order Comment: Speci men Type: URINE SPECIMEN Ordering Facility: [facility] Address: [address] [place] [address] Performed By: #### 2 4356-8 #### [facility] CLIA [id number] [address] [place] [address] [place] RBC LM.HPF (Urine sed) [#/Area] 0-3 /HPF Normal 0-3 /HPF [facility] Comment on above: Order Comment: Speci men Type: URINE SPECIMEN Ordering Facility: [facility] Address: [address] [place] [address] Performed By: #### 2 4356-8 #### [facility] CLIA [id number] [address] [place] [address] [place] Specific gravity (U) [Rel density] 1.010 Normal 1.005-1.030 [facility] Comment on above: Order Comment: Speci men Type: URINE SPECIMEN Ordering Facility: [facility] Address: [address] [place] [address] Performed By: #### 2 4356-8 #### [facility] CLIA [id number] [address] [place] [address] [place] Urobilinogen Ql (U) 0.2 EU/dL Normal 0.2-1.0 EU/dL [facility] Comment on above: Order Comment: Speci men Type: URINE SPECIMEN Ordering Facility: [facility] Address: [address] [place] [address] Performed By: #### 2 4356-8 #### [facility] CLIA [id number] [address] [place] [address] [facility] WBC LM.HPF (Urine sed) [#/Area] 0-5 /HPF Normal 0-5 /HPF [facility] Comment on above: Order Comment: Speci men Type: URINE SPECIMEN Ordering Facility: [facility] Address: [address] [place] [address] Performed By: #### 2 4356-8 #### [facility] CLIA [id number] [address] [place] [address] [place] XR CHEST 1V FRONTALon [...] radiographic findings to suggest acute cardiopulmonary process. [employer] Consultant: PSCB Transcribe Date/Time: May 15 2025 11:01A Dictated by : LAURIE SOL MD This examination was interpreted and the report reviewed and electronically signed by: LAURIE SOL MD on May 15 2025 11:02AM EST [id number] Normal [facility] Absolute lymphocyte countOrd ered By: Arnaud Borja on 05-07-2025 Lymphocytes Auto (Unsp spec) [#/Vol] 1.91 10*3/uL 0.83-4.51 [facility] Absolute neutrophil countOrd ered By: Arnaud Borja on 05-07-2025 Neutrophils (Bld) [#/Vol] 3.4 10*3/uL 2.0-7.7 [facility] Anion gap in Serum or Plasma Ordered By: Arnaud Borja on 05-07-2025 Anion gap [Moles/Vol] 12 mmol/L - [facility] Automated lymphocyte count a s percentage of total leukocytesOrdered By: [facility] on 05-07-2025 Lymphocytes/100 WBC Auto (Unsp spec) 32.9 % [facility] BUN/creatinine ratioOrdered By: [facility] Huong on 05-07-2025 Urea nitrogen/Creatinine [Mass ratio] 14.9 mg/mg 05-19 [facility] Basophil percentageOrdered B y: Arnaud Borja on 05-07-2025 Basophils/100 WBC (Bld) 0.7 % 0- [facility] Bilirubin, totalOrdered By: [facility] on 05-07-2025 Bilirubin [Mass/Vol] 0.27 mg/dL 0.00-1.30 [facility] CBC W/Diff, Automatedon 10- Absolute Lymph 1.91 X10 3/uL Normal 0.83-4.51 [facility] Comment on above: Performed By: #### L 500.2500, L501.5200, L100.0100 #### [facility] [address] [place], [address] Absolute Neut 3.4 X10 3/uL Normal 2.0-7.7 [facility] Comment on above: Performed By: #### L 500.2500, L501.5200, L100.0100 #### [facility] [address] [place], [address] Basophils/100 WBC (Bld) 0.7 % Normal 0-1 [facility] Comment on above: Performed By: #### L 500.2500, L501.5200, L100.0100 #### [facility] [address] [place], [address] Eosinophils/100 WBC (Bld) 2.1 % Normal 0-5 [facility] Comment on above: Performed By: #### L 500.2500, L501.5200, L100.0100 #### [facility] [address] [place], [address] Erythrocyte distribution width (RBC) [Ratio] 17.2 % High 11.6-14.6 [facility] Comment on above: Performed By: #### L 500.2500, L501.5200, L100.0100 #### [facility] [address] [place], [address] Hematocrit (Bld) [Volume fraction] 28.1 % Low 37-47 [facility] Comment on above: Performed By: #### L 500.2500, L501.5200, L100.0100 #### [facility] [address] [place], [address] Hemoglobin (Bld) [Mass/Vol] 9.3 g/dL Low 12.0-15.0 [facility] Comment on above: Performed By: #### L 500.2500, L501.5200, L100.0100 #### [facility] [address] [place], [address] IG% 0.200 Normal 0.0-0.9 [facility] Comment on above: Result Comment: IG% - Immature Granulocytes (promyelocytes, myelocytes and metamyelocytes) > 1% indicates that a LEFT SHIFT is Present. Performed By: #### L 500.2500, L501.5200, L100.0100 #### [facility] [address] [place], [address] Lymphocytes/100 WBC (Bld) 32.9 % Normal 19-41 [facility] Comment on above: Performed By: #### L 500.2500, L501.5200, L100.0100 #### [facility] [address] [place], [address] MCH (RBC) [Entitic mass] 30.0 pg Normal 27.0-32.0 [facility] Comment on above: Performed By: #### L 500.2500, L501.5200, L100.0100 #### [facility] [address] [place], [address] MCHC (RBC) [Mass/Vol] 33.1 g/dL Normal 32-36 [facility] Comment on above: Performed By: #### L 500.2500, L501.5200, L100.0100 #### [facility] [address] [place], [address] MCV (RBC) [Entitic vol] 90.6 fL Normal 81-99 [facility] Comment on above: Performed By: #### L 500.2500, L501.5200, L100.0100 #### [facility] [address] [place], [address] Monocytes/100 WBC (Bld) 5.5 % Normal 0-10 [facility] Comment on above: Performed By: #### L 500.2500, L501.5200, L100.0100 #### [facility] [address] [place], [address] Neutrophils/100 WBC (Bld) 58.6 % Normal 47-70 [facility] Comment on above: Performed By: #### L 500.2500, L501.5200, L100.0100 #### [facility] [address] [place], [address] Nucleated RBC (Bld) [#/Vol] 0 10*3/uL Normal 0-5 [facility] Comment on above: Performed By: #### L 500.2500, L501.5200, L100.0100 #### [facility] [address] [place], [address] Platelet mean volume (Bld) [Entitic vol] 9.1 fL Normal 6.2-12.0 [facility] Comment on above: Performed By: #### L 500.2500, L501.5200, L100.0100 #### [facility] [address] [place], [address] Platelets (Bld) [#/Vol] 333 10*3/uL Normal 150-450 [facility] Comment on above: Performed By: #### L 500.2500, L501.5200, L100.0100 #### [facility] [address] [place], [address] RBC (Bld) [#/Vol] 3.10 10*6/uL Low 4.2-5.4 [facility] Comment on above: Performed By: #### L 500.2500, L501.5200, L100.0100 #### [facility] [address] [place], [address] RDW SD 57.1 fl High 35.1-43.9 [facility] Comment on above: Performed By: #### L 500.2500, L501.5200, L100.0100 #### [facility] [address] [place], [address] WBC (Bld) [#/Vol] 5.8 10*3/uL Normal 4.4-11.0 [facility] Comment on above: Performed By: #### L 500.2500, L501.5200, L100.0100 #### [facility] [address] [place], [address] Carbon dioxide, total [Moles /volume] in Central venous bloodOrdered By: Arnaud Borja on 05-07-2025 CO2 [Moles/Vol] 23.4 mmol/L 21.0-32.0 [facility] Chloride assayOrdered By: Jluis Borja on 05-07-2025 Chloride [Moles/Vol] 104 mmol/L 98-108 [facility] Comprehensive Metabolic Prof ilon 05-07-2025 Albumin [Mass/Vol] 4.1 g/dL Normal 3.5-5.0 [facility] Comment on above: Performed By: #### L 500.2500, L501.5200, L100.0100 #### [facility] [address] [place], [address] Albumin/Globulin [Mass ratio] 1.2 {ratio} Normal 0.9-2.4 [facility] Comment on above: Performed By: #### L 500.2500, L501.5200, L100.0100 #### [facility] [address] [place], [address] ALK PHOS 121 U/L High 35-104 [facility] Comment on above: Performed By: #### L 500.2500, L501.5200, L100.0100 #### [facility] [address] [place], [address] ALT [Catalytic activity/Vol] 21 U/L Normal <=34 [facility] Comment on above: Performed By: #### L 500.2500, L501.5200, L100.0100 #### [facility] [address] [place], [address] AST [Catalytic activity/Vol] 22 U/L Normal <=31 [facility] Comment on above: Performed By: #### L 500.2500, L501.5200, L100.0100 #### [facility] [address] [place], [address] Bilirubin [Mass/Vol] 0.27 mg/dL Normal 0.00-1.30 [facility] Comment on above: Performed By: #### L 500.2500, L501.5200, L100.0100 #### [facility] [address] [place], [address] BUN/CRE 14.9 RATIO Normal 10-20 [facility] Comment on above: Performed By: #### L 500.2500, L501.5200, L100.0100 #### [facility] [address] [place], [address] Calcium [Mass/Vol] 9.5 mg/dL Normal 7.6-11.0 [facility] Comment on above: Performed By: #### L 500.2500, L501.5200, L100.0100 #### [facility] [address] [place], [address] Chloride [Moles/Vol] 104 mmol/L Normal 98-108 [facility] Comment on above: Performed By: #### L 500.2500, L501.5200, L100.0100 #### [facility] [address] [place], [address] CO2 [Moles/Vol] 23.4 mmol/L Normal 21.0-32.0 [facility] Comment on above: Performed By: #### L 500.2500, L501.5200, L100.0100 #### [facility] [address] [place], [address] Creatinine [Mass/Vol] 0.83 mg/dL Normal 0.70-1.20 [facility] Comment on above: Performed By: #### L 500.2500, L501.5200, L100.0100 #### [facility] [address] [place], [address] ECRCL 77.83 ml/min Normal 50-250 [facility] Comment on above: Performed By: #### L 500.2500, L501.5200, L100.0100 #### [facility] [address] [place], [address] GAP 12 Normal 5-15 [facility] Comment on above: Performed By: #### L 500.2500, L501.5200, L100.0100 #### [facility] [facility] [address] [place], [address] GFR/1.73 sq M.predicted among non-blacks MDRD (S/P/Bld) [Vol rate/Area] 89 mL/min/{1.73_m2} Normal >60 [facility] Comment on above: Result Comment: mL/m in/1.73m2 CKD-EPI Creatinine Equation (2020) Performed By: #### L 500.2500, L501.5200, L100.0100 #### [facility] [address] [place], [address] Globulin (S) [Mass/Vol] 3.5 g/dL Normal 2.2-4.2 [facility] Comment on above: Performed By: #### L 500.2500, L501.5200, L100.0100 #### [facility] [address] [place], [address] Glucose [Mass/Vol] 98 mg/dL Normal 70-99 [facility] Comment on above: Performed By: #### L 500.2500, L501.5200, L100.0100 #### [facility] [address] [place], [address] Potassium [Moles/Vol] 3.6 mmol/L Normal 3.3-5.1 [facility] Comment on above: Performed By: #### L 500.2500, L501.5200, L100.0100 #### [facility] [address] [place], [address] Sodium [Moles/Vol] 140 mmol/L Normal 133-145 [facility] Comment on above: Performed By: #### L 500.2500, L501.5200, L100.0100 #### [facility] [address] [place], [address] T PROT 7.5 g/dL Normal 5.9-8.4 [facility] Comment on above: Performed By: #### L 500.2500, L501.5200, L100.0100 #### [facility] [address] [place], [address] Urea nitrogen [Mass/Vol] 12 mg/dL Normal 4-19 [facility] Comment on above: Performed By: #### L 500.2500, L501.5200, L100.0100 #### [facility] [address] [place], [address] Eosinophil percentageOrdered By: Arnaud Borja on 05-07-2025 Eosinophils/100 WBC (Bld) 2.1 % 0-5 [facility] Erythrocyte distribution wid th ratioOrdered By: [facility] on 05-07-2025 Erythrocyte distribution width (RBC) [Ratio] 17.2 % High 11.6-14.6 [facility] Erythrocyte distribution wid th standard deviationOrdered By: [facility] on 05-07-2025 Erythrocyte distribution width (RBC) [Ratio] 57.1 fl High 35.1-43.9 [facility] Ferritinon 05-07-2025 Ferritin [Mass/Vol] 170 ng/mL Normal 22-378 [facility] Comment on above: Performed By: #### L 501.2300 #### [facility] [address] [place], [address] Glomerular filtration rate ( GFR) estimation/1.73 sq m using serum, plasma, or whole bOrdered By: Arnaud Borja on 05-07-2025 GFR/1.73 sq M.predicted among non-blacks MDRD (S/P/Bld) [Vol rate/Area] 89 mL/min/{1.73_m2} >60 [facility] Comment on above: mL/min/1.73m2 CKD-EP I Creatinine Equation (2020) Hematocrit Auto (Bld) [Volum e fraction]Ordered By: Arnaud Borja on 05-07-2025 Hematocrit (Bld) [Volume fraction] 28.1 % Low 37-47 [facility] Hemoglobin measurementOrdere d By: Arnaud Borja on 05-07-2025 Hemoglobin (Bld) [Mass/Vol] 9.3 g/dL Low 12.0-15.0 [facility] Immature granulocytes/100 WB C Auto (Bld)Ordered By: Arnaud Borja on 05-07-2025 Immature granulocytes/100 WBC (Bld) 0.200 % 0.0-0.9 [facility] Comment on above: IG% - Immature Granu locytes (promyelocytes, myelocytes and metamyelocytes) > 1% indicates that a LEFT SHIFT is Present. Laboratory - Chemistry and C hemistry - challengeOrdered By: Arnaud Borja on 05-07-2025 AST [Catalytic activity/Vol] 22 U/L <32 [facility] MCV (mean corpuscular volume ) determinationOrdered By: [facility] on 05-07-2025 MCV (RBC) [Entitic vol] 90.6 fL 81-99 [facility] Magnesiumon 05-07-2025 Magnesium [Mass/Vol] 2.0 mg/dL Normal 1.5-2.2 [facility] Comment on above: Performed By: #### L 500.2500, L501.5200, L100.0100 #### [facility] [address] [place], [address] Magnesium measurement (mass/ volume)Ordered By: Arnaud Borja on 05-07-2025 Magnesium (Unsp spec) [Mass/Vol] 2.0 mg/dL 1.5-2.2 [facility] Mean corpuscular hemoglobin (MCH) determinationOrdered By: Arnaud Borja on 05-07-2025 MCH (RBC) [Entitic mass] 30.0 pg 27.0-32.0 [facility] Mean corpuscular hemoglobin concentration (MCHC) determinationOrdered By: Arnaud Borja on 05-07-2025 MCHC (RBC) [Mass/Vol] 33.1 g/dL 32-36 [facility] Mean platelet volume determi nationOrdered By: Arnaud Borja on 05-07-2025 Platelet mean volume (Bld) [Entitic vol] 9.1 fL 6.2-12.0 [facility] Monocyte percentageOrdered B y: Arnaud Borja on 05-07-2025 Monocytes/100 WBC (Bld) 5.5 % 0-10 [facility] Neutrophil percentageOrdered By: Arnaud Borja on 05-07-2025 Neutrophils/100 WBC (Bld) 58.6 % 47-70 [facility] Nucleated red blood cell per centageOrdered By: [facility] on 05-07-2025 Nucleated RBC/100 WBC (Bld) [Ratio] 0 % 0-5 [facility] Oncology Visit Reporton 10-0 Oncology Visit Report [facility] [address] 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 Treatment summary and response: [facility] February 13, 2025 Interval History The patient is presenting to clinic for an evaluation anticipating she will begin c4 neoadjuvan (more content not included)... Normal [facility] Platelet countOrdered By: Jluis Borja on 05-07-2025 Platelets (Bld) [#/Vol] 333 10*3/uL 150-450 [facility] Potassium measurement (mass/ volume)Ordered By: Arnaud Borja on 05-07-2025 Potassium (Unsp spec) [Mass/Vol] 3.6 mmol/L 3.3-5.1 [facility] RBC Auto (Bld) [#/Vol]Ordere d By: Arnaud Borja on 05-07-2025 RBC (Bld) [#/Vol] 3.10 10*6/uL Low 4.2-5.4 [facility] Retic Panelon 05-07-2025 IM RET FRACTION 13.50 Normal 3.00-15.90 [facility] Comment on above: Performed By: #### L 191.8260 #### [facility] [address] [place], [address] RET-HE 31.0 pg Normal 30-35 [facility] Comment on above: Performed By: #### L 480.2300 #### [facility] [address] [place], [place], [id number] Retic Count 1.96 High 0.5-1.5 [facility] Comment on above: Performed By: #### L 501.2300 #### [facility] [address] [facility] [place], [place], [address] Reticulocyte hemoglobin equi valent (RET-He) measurementOrdered By: Arnaud Borja on 05-07-2025 Hemoglobin (Reticulocytes) [Entitic mass] 31.0 pg 30-35 [facility] Reticulocytes Auto (Bld) [#/ Vol]Ordered By: Arnaud Borja on 05-07-2025 Reticulocytes/100 RBC (Bld) 1.96 % High 0.5-1.5 [facility] Serum creatinine measurement (mass/volume)Ordered By: Arnaud Borja on 05-07-2025 Creatinine [Mass/Vol] 0.83 mg/dL 0.70-1.20 [facility] Serum globulin measurementOr dered By: Arnaud Borja on 05-07-2025 Globulin (S) [Mass/Vol] 3.5 g/dL 2.2-4.2 [facility] Serum glucose measurement (m ass/volume)Ordered By: Arnaud Borja on 05-07-2025 Glucose [Mass/Vol] 98 mg/dL 70-99 [facility] Serum or plasma alanine rainey otransferase (ALT) measurementOrdered By: Arnaud Borja on 05-07-2025 ALT [Catalytic activity/Vol] 21 U/L <35 [facility] Serum or plasma albumin ceasar urement (mass/volume)Ordered By: Arnaud Borja on 05-07-2025 Albumin [Mass/Vol] 4.1 g/dL 3.5-5.0 [facility] Serum or plasma albumin/glob ulin mass ratioOrdered By: Arnaud Borja on 05-07-2025 Albumin/Globulin [Mass ratio] 1.2 {ratio} 0.9-2.4 [facility] Serum or plasma alkaline dasia sphatase measurementOrdered By: Arnaud Borja on 05-07-2025 ALP [Catalytic activity/Vol] 121 U/L High 35-104 [facility] Serum or plasma calcium ceasar urement (mass/volume)Ordered By: Arnaud Huong on 05-07-2025 Calcium [Mass/Vol] 9.5 mg/dL 7.6-11.0 [facility] Serum or plasma urea nitroge n measurement (mass/volume)Ordered By: Arnaud Huong on 05-07-2025 Urea nitrogen [Mass/Vol] 12 mg/dL 4-19 [facility] Sodium levelOrdered By: Meir harvey Huong on 05-07-2025 Sodium [Moles/Vol] 140 mmol/L 133-145 [facility] Total proteinOrdered By: Charanjit mcmahan Huong on 05-07-2025 Protein [Mass/Vol] 7.5 g/dL 5.9-8.4 [facility] Urinalysis, Completeon 05-07 BACTERIA RARE Normal None Seen [facility] Comment on above: Order Comment: CLEAN CATCH Performed By: #### L 400.0001 ####[facility] [address] [facility] [address] EPI,SQUAMOUS 0-5 SEEN Normal 5-10 [facility] Comment on above: Order Comment: CLEAN CATCH Performed By: #### L 400.0001 ####[facility] [address] [facility] [address] WBC 0-5 SEEN Normal 0-5 [facility] Comment on above: Order Comment: CLEAN CATCH Performed By: #### L 400.0001 ####[facility] [address] [place], [address] Mucus Ql (Urine sed) 0 SEEN Normal [facility] Comment on above: Order Comment: CLEAN CATCH Performed By: #### L 400.0001 ####[facility] [address] [place], [address] RBC 0 SEEN Normal 0-5 [facility] Comment on above: Order Comment: CLEAN CATCH Performed By: #### L 400.0001 ####[facility] [address] [place], [address] White blood cell (WBC) count Ordered By: Arnaud Borja on 05-07-2025 WBC (Bld) [#/Vol] 5.8 10*3/uL 4.4-11.0 [facility] CBC W/Diff, Automatedon 10-0 Absolute Neut Normal 2.0-7.7 [facility] Comment on above: Result Comment: NO S PECIMEN COLLECTED Performed By: #### L 500.4050, L100.0100 #### [facility] [address] [place], [address] HCT Normal 37-47 [facility] Comment on above: Result Comment: NO S PECIMEN COLLECTED Performed By: #### L 500.4050, L100.0100 #### [facility] [address] [place], [address] HGB Normal 12.0-15.0 [facility] Comment on above: Result Comment: NO S PECIMEN COLLECTED Performed By: #### L 500.4050, L100.0100 #### [facility] [address] [place], [address] MCH Normal 27.0-32.0 [facility] Comment on above: Result Comment: NO S PECIMEN COLLECTED Performed By: #### L 500.4050, L100.0100 #### [facility] [address] [place], [address] MCHC Normal 32-36 [facility] Comment on above: Result Comment: NO S PECIMEN COLLECTED Performed By: #### L 500.4050, L100.0100 #### [facility] [address] [place], [address] MCV Normal 81-99 [facility] Comment on above: Result Comment: NO S PECIMEN COLLECTED Performed By: #### L 500.4050, L100.0100 #### [facility] [address] [place], [address] NEUT% Normal 47-70 [facility] Comment on above: Result Comment: NO S PECIMEN COLLECTED Performed By: #### L 500.4050, L100.0100 #### [facility] [address] [place], [address] PLT Normal 150-450 [facility] Comment on above: Result Comment: NO S PECIMEN COLLECTED Performed By: #### L 500.4050, L100.0100 #### [facility] [address] [place], [address] RBC Normal 4.2-5.4 [facility] Comment on above: Result Comment: NO S PECIMEN COLLECTED Performed By: #### L 500.4050, L100.0100 #### [facility] [address] [place], [address] RDW CV Normal 11.6-14.6 [facility] Comment on above: Result Comment: NO S PECIMEN COLLECTED Performed By: #### L 500.4050, L100.0100 #### [facility] [address] [place], [address] RDW SD Normal 35.1-43.9 [facility] Comment on above: Result Comment: NO S PECIMEN COLLECTED Performed By: #### L 500.4050, L100.0100 #### [facility] [address] [place], [address] WBC Normal 4.4-11.0 [facility] Comment on above: Result Comment: NO S PECIMEN COLLECTED Performed By: #### L 500.4050, L100.0100 #### [facility] [address] [place], [address] Comprehensive Metabolic Prof ilon 04-30-2025 ALB Normal 3.5-5.0 [facility] Comment on above: Result Comment: NO S PECIMEN COLLECTED Performed By: #### L 500.4050, L100.0100 #### [facility] [address] [place], [address] ALK PHOS Normal 35-104 [facility] Comment on above: Result Comment: NO S PECIMEN COLLECTED Performed By: #### L 500.4050, L100.0100 #### [facility] [address] [place], [address] ALT Normal <=34 [facility] Comment on above: Result Comment: NO S PECIMEN COLLECTED Performed By: #### L 500.4050, L100.0100 #### [facility] [address] [place], [address] AST Normal <=31 [facility] Comment on above: Result Comment: NO S PECIMEN COLLECTED Performed By: #### L 500.4050, L100.0100 #### [facility] [address] [place], [address] BUN Normal 4-19 [facility] Comment on above: Result Comment: NO S PECIMEN COLLECTED Performed By: #### L 500.4050, L100.0100 #### [facility] [address] [place], [address] BUN/CRE Normal 10-20 [facility] Comment on above: Result Comment: NO S PECIMEN COLLECTED Performed By: #### L 500.4050, L100.0100 #### [facility] [address] [place], [address] Calcium Normal 7.6-11.0 [facility] Comment on above: Result Comment: NO S PECIMEN COLLECTED Performed By: #### L 500.4050, L100.0100 #### [facility] [address] [place], [address] CL Normal 98-108 [facility] Comment on above: Result Comment: NO S PECIMEN COLLECTED Performed By: #### L 500.4050, L100.0100 #### [facility] [address] [place], [address] CO2 Normal 21.0-32.0 [facility] Comment on above: Result Comment: NO S PECIMEN COLLECTED Performed By: #### L 500.4050, L100.0100 #### [facility] [address] [place], [address] CREAT,SERUM Normal 0.70-1.20 [facility] Comment on above: Result Comment: NO S PECIMEN COLLECTED Performed By: #### L 500.4050, L100.0100 #### [facility] [address] [place], [address] eGFR Normal >60 [facility] Comment on above: Result Comment: NO S PECIMEN COLLECTED Performed By: #### L 500.4050, L100.0100 #### [facility] [address] [place], [address] GAP Normal 5-15 [facility] Comment on above: Result Comment: NO S PECIMEN COLLECTED Performed By: #### L 500.4050, L100.0100 #### [facility] [address] [place], [address] GLU Normal 70-99 [facility] Comment on above: Result Comment: NO S PECIMEN COLLECTED Performed By: #### L 500.4050, L100.0100 #### [facility] [address] [place], [address] Potassium Normal 3.3-5.1 [facility] Comment on above: Result Comment: NO S PECIMEN COLLECTED Performed By: #### L 500.4050, L100.0100 #### [facility] [address] [place], [address] T BILI Normal 0.00-1.30 [facility] Comment on above: Result Comment: NO S PECIMEN COLLECTED Performed By: #### L 500.4050, L100.0100 #### [facility] [address] [place], [address] T PROT Normal 5.9-8.4 [facility] Comment on above: Result Comment: NO S PECIMEN COLLECTED Performed By: #### L 500.4050, L100.0100 #### [facility] [address] [place], [address] Comprehensive Metabolic Profil Normal 133-145 [facility] Comment on above: Result Comment: NO S PECIMEN COLLECTED Performed By: #### L 500.4050, L100.0100 #### [facility] [address] [place], [address] CBC W/Diff, Automatedon 09-2 Absolute Neut Normal 2.0-7.7 [facility] Comment on above: Result Comment: NO S PECIMEN COLLECTED Performed By: #### L 500.4050, L100.0100 #### [facility] [address] [place], [address] HCT Normal 37-47 [facility] Comment on above: Result Comment: NO S PECIMEN COLLECTED Performed By: #### L 500.4050, L100.0100 #### [facility] [address] [place], [address] HGB Normal 12.0-15.0 [facility] Comment on above: Result Comment: NO S PECIMEN COLLECTED Performed By: #### L 500.4050, L100.0100 #### [facility] [address] [place], [address] MCH Normal 27.0-32.0 [facility] Comment on above: Result Comment: NO S PECIMEN COLLECTED Performed By: #### L 500.4050, L100.0100 #### [facility] [address] [place], [address] MCHC Normal 32-36 [facility] Comment on above: Result Comment: NO S PECIMEN COLLECTED Performed By: #### L 500.4050, L100.0100 #### [facility] [address] [place], [address] MCV Normal 81-99 [facility] Comment on above: Result Comment: NO S PECIMEN COLLECTED Performed By: #### L 500.4050, L100.0100 #### [facility] [address] [place], [address] NEUT% Normal 47-70 [facility] Comment on above: Result Comment: NO S PECIMEN COLLECTED Performed By: #### L 500.4050, L100.0100 #### [facility] [address] [place], [address] PLT Normal 150-450 [facility] Comment on above: Result Comment: NO S PECIMEN COLLECTED Performed By: #### L 500.4050, L100.0100 #### [facility] [address] [place], [address] RBC Normal 4.2-5.4 [facility] Comment on above: Result Comment: NO S PECIMEN COLLECTED Performed By: #### L 500.4050, L100.0100 #### [facility] [address] [place], [address] RDW CV Normal 11.6-14.6 [facility] Comment on above: Result Comment: NO S PECIMEN COLLECTED Performed By: #### L 500.4050, L100.0100 #### [facility] [address] [place], [address] RDW SD Normal 35.1-43.9 [facility] Comment on above: Result Comment: NO S PECIMEN COLLECTED Performed By: #### L 500.4050, L100.0100 #### [facility] [address] [place], [address] WBC Normal 4.4-11.0 [facility] Comment on above: Result Comment: NO S PECIMEN COLLECTED Performed By: #### L 500.4050, L100.0100 #### [facility] [address] [place], [address] Comprehensive Metabolic Prof ilon 04-23-2025 ALB Normal 3.5-5.0 [facility] Comment on above: Result Comment: NO S PECIMEN COLLECTED Performed By: #### L 500.4050, L100.0100 #### [facility] [address] [place], [address] ALK PHOS Normal 35-104 [facility] Comment on above: Result Comment: NO S PECIMEN COLLECTED Performed By: #### L 500.4050, L100.0100 #### [facility] [address] [place], [address] ALT Normal <=34 [facility] Comment on above: Result Comment: NO S PECIMEN COLLECTED Performed By: #### L 500.4050, L100.0100 #### [facility] [address] [place], [address] AST Normal <=31 [facility] Comment on above: Result Comment: NO S PECIMEN COLLECTED Performed By: #### L 500.4050, L100.0100 #### [facility] [address] [place], [address] BUN Normal 4-19 [facility] Comment on above: Result Comment: NO S PECIMEN COLLECTED Performed By: #### L 500.4050, L100.0100 #### [facility] [address] [place], [address] BUN/CRE Normal 10-20 [facility] Comment on above: Result Comment: NO S PECIMEN COLLECTED Performed By: #### L 500.4050, L100.0100 #### [facility] [address] [place], [address] Calcium Normal 7.6-11.0 [facility] Comment on above: Result Comment: NO S PECIMEN COLLECTED Performed By: #### L 500.4050, L100.0100 #### [facility] [address] [place], [address] CL Normal 98-108 [facility] Comment on above: Result Comment: NO S PECIMEN COLLECTED Performed By: #### L 500.4050, L100.0100 #### [facility] [address] [place], [address] CO2 Normal 21.0-32.0 [facility] Comment on above: Result Comment: NO S PECIMEN COLLECTED Performed By: #### L 500.4050, L100.0100 #### [facility] [address] [place], [address] CREAT,SERUM Normal 0.70-1.20 [facility] Comment on above: Result Comment: NO S PECIMEN COLLECTED Performed By: #### L 500.4050, L100.0100 #### [facility] [address] [place], [address] eGFR Normal >60 [facility] Comment on above: Result Comment: NO S PECIMEN COLLECTED Performed By: #### L 500.4050, L100.0100 #### [facility] [address] [place], [address] GAP Normal 5-15 [facility] Comment on above: Result Comment: NO S PECIMEN COLLECTED Performed By: #### L 500.4050, L100.0100 #### [facility] [address] [place], [address] GLU Normal 70-99 [facility] Comment on above: Result Comment: NO S PECIMEN COLLECTED Performed By: #### L 500.4050, L100.0100 #### [facility] [address] [place], [address] Potassium Normal 3.3-5.1 [facility] Comment on above: Result Comment: NO S PECIMEN COLLECTED Performed By: #### L 500.4050, L100.0100 #### [facility] [address] [place], [address] T BILI Normal 0.00-1.30 [facility] Comment on above: Result Comment: NO S PECIMEN COLLECTED Performed By: #### L 500.4050, L100.0100 #### [facility] [address] [place], [address] T PROT Normal 5.9-8.4 [facility] Comment on above: Result Comment: NO S PECIMEN COLLECTED Performed By: #### L 500.4050, L100.0100 #### [facility] [address] [place], [address] Comprehensive Metabolic Profil Normal 133-145 [facility] Comment on above: Result Comment: NO S PECIMEN COLLECTED Performed By: #### L 500.4050, L100.0100 #### [facility] [address] [place], [address] Absolute lymphocyte countOrd ered By: Arnaud Borja on 04-02-2025 Lymphocytes Auto (Unsp spec) [#/Vol] 1.58 10*3/uL 0.83-4.51 [facility] Absolute neutrophil countOrd ered By: Arnaud Borja on 04-02-2025 Neutrophils (Bld) [#/Vol] 3.5 10*3/uL 2.0-7.7 [facility] Anion gap in Serum or Plasma Ordered By: Arnaud Borja on 04-02-2025 Anion gap [Moles/Vol] 11 mmol/L 5-15 [facility] Automated lymphocyte count a s percentage of total leukocytesOrdered By: Arnaud Crummusa on 04-02-2025 Lymphocytes/100 WBC Auto (Unsp spec) 28.1 % 19-41 [facility] BUN/creatinine ratioOrdered By: [facility] on 04-02-2025 Urea nitrogen/Creatinine [Mass ratio] 24.2 mg/mg High 10-20 [facility] Basophil percentageOrdered B y: Arnaud العلي on 04-02-2025 Basophils/100 WBC (Bld) 0.9 % 0-1 [facility] Bilirubin, totalOrdered By: [facility] on 04-02-2025 Bilirubin [Mass/Vol] 0.19 mg/dL 0.00-1.30 [facility] CBC W/Diff, Automatedon Absolute Lymph 1.58 X10 3/uL Normal 0.83-4.51 [facility] Comment on above: Performed By: #### L 501.2300 #### [facility] [address] [place], [address] Absolute Neut 3.5 X10 3/uL Normal 2.0-7.7 [facility] Comment on above: Performed By: #### L 501.2300 #### [facility] [address] [place], [address] Basophils/100 WBC (Bld) 0.9 % Normal 0-1 [facility] Comment on above: Performed By: #### L 501.2300 #### [facility] [address] [place], [address] Eosinophils/100 WBC (Bld) 0.2 % Normal 0-5 [facility] Comment on above: Performed By: #### L 501.2300 #### [facility] [address] [place], [address] Erythrocyte distribution width (RBC) [Ratio] 13.2 % Normal 11.6-14.6 [facility] Comment on above: Performed By: #### L 501.2300 #### [facility] [address] [place], [address] Hematocrit (Bld) [Volume fraction] 24.0 % Low 37-47 [facility] Comment on above: Performed By: #### L 501.2300 #### [facility] [address] [place], [address] Hemoglobin (Bld) [Mass/Vol] 8.1 g/dL Low 12.0-15.0 [facility] Comment on above: Performed By: #### L 501.2300 #### [facility] [address] [place], [address] IG% 0.200 Normal 0.0-0.9 [facility] Comment on above: Result Comment: IG% - Immature Granulocytes (promyelocytes, myelocytes and metamyelocytes) > 1% indicates that a LEFT SHIFT is Present. Performed By: #### L 501.2300 #### [facility] [address] [place], [address] Lymphocytes/100 WBC (Bld) 28.1 % Normal 19-41 [facility] Comment on above: Performed By: #### L 501.2300 #### [facility] [address] [place], [address] MCH (RBC) [Entitic mass] 28.9 pg Normal 27.0-32.0 [facility] Comment on above: Performed By: #### L 501.2300 #### [facility] [address] [place], [address] MCHC (RBC) [Mass/Vol] 33.8 g/dL Normal 32-36 [facility] Comment on above: Performed By: #### L 501.2300 #### [facility] [address] [place], [address] MCV (RBC) [Entitic vol] 85.7 fL Normal 81-99 [facility] Comment on above: Performed By: #### L 501.2300 #### [facility] [address] [place], [address] Monocytes/100 WBC (Bld) 9.2 % Normal 0-10 [facility] Comment on above: Performed By: #### L 501.2300 #### [facility] [address] [place], [address] Neutrophils/100 WBC (Bld) 61.4 % Normal 47-70 [facility] Comment on above: Performed By: #### L 501.2300 #### [facility] [address] [place], [address] Nucleated RBC (Bld) [#/Vol] 0 10*3/uL Normal 0-5 [facility] Comment on above: Performed By: #### L 501.2300 #### [facility] [address] [place], [address] Platelet mean volume (Bld) [Entitic vol] 9.8 fL Normal 6.2-12.0 [facility] Comment on above: Performed By: #### L 501.2300 #### [facility] [address] [place], [address] Platelets (Bld) [#/Vol] 243 10*3/uL Normal 150-450 [facility] Comment on above: Performed By: #### L 501.2300 #### [facility] [address] [place], [address] RBC (Bld) [#/Vol] 2.80 10*6/uL Low 4.2-5.4 [facility] Comment on above: Performed By: #### L 501.2300 #### [facility] [address] [place], [address] RDW SD 39.0 fl Normal 35.1-43.9 [facility] Comment on above: Performed By: #### L 501.2300 #### [facility] [address] [place] [place], [address] WBC (Bld) [#/Vol] 5.6 10*3/uL Normal 4.4-11.0 [facility] Comment on above: Performed By: #### L 501.2300 #### [facility] [address] [place], [address] Carbon dioxide, total [Moles /volume] in Central venous bloodOrdered By: Arnaud Borja on 04-02-2025 CO2 [Moles/Vol] 22.5 mmol/L 21.0-32.0 [facility] Chloride assayOrdered By: Jluis Borja on 04-02-2025 Chloride [Moles/Vol] 106 mmol/L 98-108 [facility] Comprehensive Metabolic Prof ilon 04-02-2025 Albumin [Mass/Vol] 4.1 g/dL Normal 3.5-5.0 [facility] Comment on above: Performed By: #### L 501.2300 #### [facility] [address] [place] [place], [address] Albumin/Globulin [Mass ratio] 1.4 {ratio} Normal 0.9-2.4 [facility] Comment on above: Performed By: #### L 501.2300 #### [facility] [address] [place], [address] ALK PHOS 97 U/L Normal 35-104 [facility] Comment on above: Performed By: #### L 501.2300 #### [facility] [address] [place], [address] ALT [Catalytic activity/Vol] 60 U/L High <=34 [facility] Comment on above: Performed By: #### L 501.2300 #### [facility] [address] [place], [address] AST [Catalytic activity/Vol] 49 U/L High <=31 [facility] Comment on above: Performed By: #### L 501.2300 #### [facility] [address] [place], [address] Bilirubin [Mass/Vol] 0.19 mg/dL Normal 0.00-1.30 [facility] Comment on above: Performed By: #### L 501.2300 #### [facility] [address] [place], [address] BUN/CRE 24.2 RATIO High 10-20 [facility] Comment on above: Performed By: #### L 501.2300 #### [facility] [address] [place], [address] Calcium [Mass/Vol] 9.5 mg/dL Normal 7.6-11.0 [facility] Comment on above: Performed By: #### L 501.2300 #### [facility] [address] [place], [address] Chloride [Moles/Vol] 106 mmol/L Normal 98-108 [facility] Comment on above: Performed By: #### L 501.2300 #### [facility] [address] [place], [address] CO2 [Moles/Vol] 22.5 mmol/L Normal 21.0-32.0 [facility] Comment on above: Performed By: #### L 501.2300 #### [facility] [address] [place], [address] Creatinine [Mass/Vol] 0.83 mg/dL Normal 0.70-1.20 [facility] Comment on above: Performed By: #### L 501.2300 #### [facility] [address] [place], [address] ECRCL 77.83 ml/min Normal 50-250 [facility] Comment on above: Performed By: #### L 501.2300 #### [facility] [address] [place], [address] GAP 11 Normal 5-15 [facility] Comment on above: Performed By: #### L 501.2300 #### [facility] [address] [place], [address] GFR/1.73 sq M.predicted among non-blacks MDRD (S/P/Bld) [Vol rate/Area] 89 mL/min/{1.73_m2} Normal >60 [facility] Comment on above: Result Comment: mL/m in/1.73m2 CKD-EPI Creatinine Equation (2020) Performed By: #### L 501.2300 #### [facility] [address] [place], [address] Globulin (S) [Mass/Vol] 2.9 g/dL Normal 2.2-4.2 [facility] Comment on above: Performed By: #### L 501.2300 #### [facility] [address] [place], [address] Glucose [Mass/Vol] 76 mg/dL Normal 70-99 [facility] Comment on above: Performed By: #### L 501.2300 #### [facility] [address] [place], [address] Potassium [Moles/Vol] 4.0 mmol/L Normal 3.3-5.1 [facility] Comment on above: Performed By: #### L 501.2300 #### [facility] [address] [place], [address] Sodium [Moles/Vol] 139 mmol/L Normal 133-145 [facility] Comment on above: Performed By: #### L 501.2300 #### [facility] [address] [place], [place], [id number] T PROT 6.9 g/dL Normal 5.9-8.4 [facility] Comment on above: Performed By: #### L 501.2300 #### [facility] [address] [place], [place], [address] Urea nitrogen [Mass/Vol] 20 mg/dL High 4-19 [facility] Comment on above: Performed By: #### L 501.2300 #### [facility] [address] [place], [place], [address] Eosinophil percentageOrdered By: Arnaud Borja on 04-02-2025 Eosinophils/100 WBC (Bld) 0.2 % 0-5 [facility] Erythrocyte distribution wid th ratioOrdered By: [facility] on 04-02-2025 Erythrocyte distribution width (RBC) [Ratio] 13.2 % 11.6-14.6 [facility] Erythrocyte distribution wid th standard deviationOrdered By: [facility] on 04-02-2025 Erythrocyte distribution width (RBC) [Ratio] 39.0 fl 35.1-43.9 [facility] Glomerular filtration rate ( GFR) estimation/1.73 sq m using serum, plasma, or whole bOrdered By: Arnaud Borja on 04-02-2025 GFR/1.73 sq M.predicted among non-blacks MDRD (S/P/Bld) [Vol rate/Area] 89 mL/min/{1.73_m2} >60 [facility] Comment on above: mL/min/1.73m2 CKD-EP I Creatinine Equation (2020) Hematocrit Auto (Bld) [Volum e fraction]Ordered By: Arnaud Borja on 04-02-2025 Hematocrit (Bld) [Volume fraction] 24.0 % Low 37-47 [facility] Hemoglobin measurementOrdere d By: Arnaud Borja on 04-02-2025 Hemoglobin (Bld) [Mass/Vol] 8.1 g/dL Low 12.0-15.0 [facility] Immature granulocytes/100 WB C Auto (Bld)Ordered By: Arnaud Borja on 04-02-2025 Immature granulocytes/100 WBC (Bld) 0.200 % 0.0-0.9 [facility] Comment on above: IG% - Immature Granu locytes (promyelocytes, myelocytes and metamyelocytes) > 1% indicates that a LEFT SHIFT is Present. Iron measurement (mass/mass) Ordered By: Arnaud Borja on 04-02-2025 Iron (Unsp spec) [Mass/Mass] 48 ug/dL Low 50-170 [facility] Iron+Iron Binding Capacityon 04-02-2025 Iron [Mass/Vol] 48 ug/dL Low 50-170 [facility] Comment on above: Performed By: #### L 501.2300, L503.6030 ####[facility] [id number] [place], [address] IRON SATURATION 17.0 Normal 13-59 [facility] Comment on above: Performed By: #### L 501.2300, L503.6030 ####[facility] [address] [facility] [address] TIBC 277 ug/dL Normal 250-450 [facility] Comment on above: Performed By: #### L 501.2300, L503.6030 ####[facility] [id number] [facility] [address] UIBC 229 ug/dL Normal 228-428 [facility] Comment on above: Performed By: #### L 501.2300, L503.6030 ####[facility] [address] [facility] [address] Laboratory - Chemistry and C hemistry - challengeOrdered By: Arnaud Borja on 04-02-2025 AST [Catalytic activity/Vol] 49 U/L High <32 [facility] MCV (mean corpuscular volume ) determinationOrdered By: Arnaud Borja on 04-02-2025 MCV (RBC) [Entitic vol] 85.7 fL 81-99 [facility] Magnesiumon 04-02-2025 Magnesium [Mass/Vol] 1.9 mg/dL Normal 1.5-2.2 [facility] Comment on above: Performed By: #### L 501.2300 #### [facility] [address] [place], [place], [address] Magnesium measurement (mass/ volume)Ordered By: Arnaud Borja on 04-02-2025 Magnesium (Unsp spec) [Mass/Vol] 1.9 mg/dL 1.5-2.2 [facility] Mean corpuscular hemoglobin (MCH) determinationOrdered By: [facility] Huong on 04-02-2025 MCH (RBC) [Entitic mass] 28.9 pg 27.0-32.0 [facility] Mean corpuscular hemoglobin concentration (MCHC) determinationOrdered By: [facility] Huong on 04-02-2025 MCHC (RBC) [Mass/Vol] 33.8 g/dL 32-36 [facility] Mean platelet volume determi nationOrdered By: [facility] on 04-02-2025 Platelet mean volume (Bld) [Entitic vol] 9.8 fL 6.2-12.0 [facility] Monocyte percentageOrdered B y: [facility] Huong on 04-02-2025 Monocytes/100 WBC (Bld) 9.2 % 0-10 [facility] Neutrophil percentageOrdered By: [facility] Huong on 04-02-2025 Neutrophils/100 WBC (Bld) 61.4 % 47-70 [facility] No Panel InformationOrdered By: [facility] on 04-02-2025 Unsaturated Iron Binding Capacity 229 ug/dL 228-428 [facility] Nucleated red blood cell per centageOrdered By: [facility] Huong on 04-02-2025 Nucleated RBC/100 WBC (Bld) [Ratio] 0 % 0-5 [facility] Oncology Visit Reporton Oncology Visit Report [facility] [place] [facility] [address] [place], [place] [address] OFFICE VISIT Date of Service: 04/02/25 0946 MR#: [id number] Acct: [id number] Name: HOWARD HALL Rep #: [id number] : 1980 From: Arnaud Borja MD Age/Sex: 44/F Location: [facility] Status: Signed HPI Subjective Date of [...] in 100% of tumor cells PROGESTERONE RECEPTOR ([place]): Positive, strong immunoreactivity in 100% of tumor cells HER2/DEIGO IHC: Positive, (Score 3+) KI67 IHC: 40% [...] = -16.7% (normal). Treatment summary and response: [facility] February 13, 2025 Interval History February 2025 on antibiotics for an infected tooth, right lower jaw improving with less swelling and (more content not included)... Normal [facility] Phosphoruson 04-02-2025 Phosphate [Mass/Vol] 3.6 mg/dL Normal 2.7-4.5 [facility] Comment on above: Performed By: #### L 501.2300, L503.6030 ####[facility] [address] [place], [address] Phosphate [Mass/Vol] 3.5 mg/dL Normal 2.7-4.5 [facility] Comment on above: Performed By: #### L 501.2300 #### [facility] [address] [place], [address] Platelet countOrdered By: Jluis Borja on 04-02-2025 Platelets (Bld) [#/Vol] 243 10*3/uL 150-450 [facility] Potassium measurement (mass/ volume)Ordered By: Arnaud Borja on 04-02-2025 Potassium (Unsp spec) [Mass/Vol] 4.0 mmol/L 3.3-5.1 [facility] RBC Auto (Bld) [#/Vol]Ordere d By: Arnaud Borja on 04-02-2025 RBC (Bld) [#/Vol] 2.80 10*6/uL Low 4.2-5.4 [facility] Serum creatinine measurement (mass/volume)Ordered By: Arnaud Borja on 04-02-2025 Creatinine [Mass/Vol] 0.83 mg/dL 0.70-1.20 [facility] Serum globulin measurementOr dered By: Arnaud Borja on 04-02-2025 Globulin (S) [Mass/Vol] 2.9 g/dL 2.2-4.2 [facility] Serum glucose measurement (m ass/volume)Ordered By: Arnaud Borja on 04-02-2025 Glucose [Mass/Vol] 76 mg/dL 70-99 [facility] Serum or plasma alanine rainey otransferase (ALT) measurementOrdered By: Arnaud Borja on 04-02-2025 ALT [Catalytic activity/Vol] 60 U/L High <35 [facility] Serum or plasma albumin ceasar urement (mass/volume)Ordered By: Arnaud Borja on 04-02-2025 Albumin [Mass/Vol] 4.1 g/dL 3.5-5.0 [facility] Serum or plasma albumin/glob ulin mass ratioOrdered By: Arnaud Borja on 04-02-2025 Albumin/Globulin [Mass ratio] 1.4 {ratio} 0.9-2.4 [facility] Serum or plasma alkaline dasia sphatase measurementOrdered By: Arnaud Borja on 04-02-2025 ALP [Catalytic activity/Vol] 97 U/L 35-104 [facility] Serum or plasma calcium ceasar urement (mass/volume)Ordered By: Arnaud Borja on 04-02-2025 Calcium [Mass/Vol] 9.5 mg/dL 7.6-11.0 [facility] Serum or plasma iron saturat ion measurement (mass fraction)Ordered By: Arnaud Borja on 04-02-2025 Iron saturation [Mass fraction] 17.0 % 13-59 [facility] Serum or plasma urea nitroge n measurement (mass/volume)Ordered By: Arnaud Borja on 04-02-2025 Urea nitrogen [Mass/Vol] 20 mg/dL High 4-19 [facility] Sodium levelOrdered By: Meir Borja on 04-02-2025 Sodium [Moles/Vol] 139 mmol/L 133-145 [facility] Total proteinOrdered By: Charanjit Borja on 04-02-2025 Protein [Mass/Vol] 6.9 g/dL 5.9-8.4 [facility] White blood cell (WBC) count Ordered By: Arnaud Borja on 04-02-2025 WBC (Bld) [#/Vol] 5.6 10*3/uL 4.4-11.0 [facility] Absolute lymphocyte countOrd ered By: Arnaud Borja on 03-12-2025 Lymphocytes Auto (Unsp spec) [#/Vol] 1.91 10*3/uL 0.83-4.51 [facility] Absolute neutrophil countOrd ered By: Arnaud Borja on 03-12-2025 Neutrophils (Bld) [#/Vol] 3.3 10*3/uL 2.0-7.7 [facility] Anion gap in Serum or Plasma Ordered By: Arnaud Borja on 03-12-2025 Anion gap [Moles/Vol] 12 mmol/L 5- [facility] Automated lymphocyte count a s percentage of total leukocytesOrdered By: [facility] on 03-12-2025 Lymphocytes/100 WBC Auto (Unsp spec) 32.2 % - [facility] BUN/creatinine ratioOrdered By: [facility] on 03-12-2025 Urea nitrogen/Creatinine [Mass ratio] 17.5 mg/mg 10- [facility] Basophil percentageOrdered B y: Arnaud Borja on 03-12-2025 Basophils/100 WBC (Bld) 1.0 % 0-1 [facility] Bilirubin, totalOrdered By: [facility] on 03-12-2025 Bilirubin [Mass/Vol] 0.16 mg/dL 0.00-1.30 [facility] CBC W/Diff, Automatedon 02-28 Absolute Lymph 1.91 X10 3/uL Normal 0.83-4.51 [facility] Comment on above: Performed By: #### L 500.4050, L100.0100 #### [facility] [address] [facility] [place], [address] Absolute Neut 3.3 X10 3/uL Normal 2.0-7.7 [facility] Comment on above: Performed By: #### L 500.4050, L100.0100 #### [facility] [address] [place], [address] Basophils/100 WBC (Bld) 1.0 % Normal 0-1 [facility] Comment on above: Performed By: #### L 500.4050, L100.0100 #### [facility] [address] [place], [address] Eosinophils/100 WBC (Bld) 2.0 % Normal 0-5 [facility] Comment on above: Performed By: #### L 500.4050, L100.0100 #### [facility] [address] [place], [address] Erythrocyte distribution width (RBC) [Ratio] 13.2 % Normal 11.6-14.6 [facility] Comment on above: Performed By: #### L 500.4050, L100.0100 #### [facility] [address] [place], [address] Hematocrit (Bld) [Volume fraction] 30.2 % Low 37-47 [facility] Comment on above: Performed By: #### L 500.4050, L100.0100 #### [facility] [address] [place], [address] Hemoglobin (Bld) [Mass/Vol] 10.1 g/dL Low 12.0-15.0 [facility] Comment on above: Performed By: #### L 500.4050, L100.0100 #### [facility] [address] [place], [address] IG% 0.200 Normal 0.0-0.9 [facility] Comment on above: Result Comment: IG% - Immature Granulocytes (promyelocytes, myelocytes and metamyelocytes) > 1% indicates that a LEFT SHIFT is Present. Performed By: #### L 500.4050, L100.0100 #### [facility] [address] [place], [address] Lymphocytes/100 WBC (Bld) 32.2 % Normal 19-41 [facility] Comment on above: Performed By: #### L 500.4050, L100.0100 #### [facility] [address] [place], [address] MCH (RBC) [Entitic mass] 29.2 pg Normal 27.0-32.0 [facility] Comment on above: Performed By: #### L 500.4050, L100.0100 #### [facility] [address] [place], [address] MCHC (RBC) [Mass/Vol] 33.4 g/dL Normal 32-36 [facility] Comment on above: Performed By: #### L 500.4050, L100.0100 #### [facility] [address] [place], [address] MCV (RBC) [Entitic vol] 87.3 fL Normal 81-99 [facility] Comment on above: Performed By: #### L 500.4050, L100.0100 #### [facility] [address] [place], [address] Monocytes/100 WBC (Bld) 9.8 % Normal 0-10 [facility] Comment on above: Performed By: #### L 500.4050, L100.0100 #### [facility] [address] [place], [address] Neutrophils/100 WBC (Bld) 54.8 % Normal 47-70 [facility] Comment on above: Performed By: #### L 500.4050, L100.0100 #### [facility] [address] [place], [address] Nucleated RBC (Bld) [#/Vol] 0 10*3/uL Normal 0-5 [facility] Comment on above: Performed By: #### L 500.4050, L100.0100 #### [facility] [address] [place], [address] Platelet mean volume (Bld) [Entitic vol] 10.0 fL Normal 6.2-12.0 [facility] Comment on above: Performed By: #### L 500.4050, L100.0100 #### [facility] [address] [place], [address] Platelets (Bld) [#/Vol] 388 10*3/uL Normal 150-450 [facility] Comment on above: Performed By: #### L 500.4050, L100.0100 #### [facility] [address] [place], [address] RBC (Bld) [#/Vol] 3.46 10*6/uL Low 4.2-5.4 [facility] Comment on above: Performed By: #### L 500.4050, L100.0100 #### [facility] [address] [place], [address] RDW SD 41.3 fl Normal 35.1-43.9 [facility] Comment on above: Performed By: #### L 500.4050, L100.0100 #### [facility] [address] [place], [address] WBC (Bld) [#/Vol] 5.9 10*3/uL Normal 4.4-11.0 [facility] Comment on above: Performed By: #### L 500.4050, L100.0100 #### [facility] [address] [place], [address] Carbon dioxide, total [Moles /volume] in Central venous bloodOrdered By: Arnaud Borja on 03-12-2025 CO2 [Moles/Vol] 22.8 mmol/L 21.0-32.0 [facility] Chloride assayOrdered By: Jluis Borja on 03-12-2025 Chloride [Moles/Vol] 106 mmol/L 98-108 [facility] Comprehensive Metabolic Prof ilon 03-12-2025 Albumin [Mass/Vol] 4.1 g/dL Normal 3.5-5.0 [facility] Comment on above: Performed By: #### L 501.2300 #### [facility] [address] [place], [address] Albumin/Globulin [Mass ratio] 1.5 {ratio} Normal 0.9-2.4 [facility] Comment on above: Performed By: #### L 501.2300 #### [facility] [address] [place], [address] ALK PHOS 101 U/L Normal 35-104 [facility] Comment on above: Performed By: #### L 501.2300 #### [facility] [address] [place], [address] ALT [Catalytic activity/Vol] 27 U/L Normal <=34 [facility] Comment on above: Performed By: #### L 501.2300 #### [facility] [address] [place], [address] AST [Catalytic activity/Vol] 27 U/L Normal <=31 [facility] Comment on above: Performed By: #### L 501.2300 #### [facility] [address] [place] [place], [address] Bilirubin [Mass/Vol] 0.16 mg/dL Normal 0.00-1.30 [facility] Comment on above: Performed By: #### L 501.2300 #### [facility] [address] [place], [address] BUN/CRE 17.5 RATIO Normal 10-20 [facility] Comment on above: Performed By: #### L 501.2300 #### [facility] [address] [place], [address] Calcium [Mass/Vol] 9.5 mg/dL Normal 7.6-11.0 [facility] Comment on above: Performed By: #### L 501.2300 #### [facility] [address] [place], [address] Chloride [Moles/Vol] 106 mmol/L Normal 98-108 [facility] Comment on above: Performed By: #### L 501.2300 #### [facility] [address] [place], [address] CO2 [Moles/Vol] 22.8 mmol/L Normal 21.0-32.0 [facility] Comment on above: Performed By: #### L 501.2300 #### [facility] [address] [place], [address] Creatinine [Mass/Vol] 0.86 mg/dL Normal 0.70-1.20 [facility] Comment on above: Performed By: #### L 501.2300 #### [facility] [address] [place], [address] ECRCL 75.12 ml/min Normal 50-250 [facility] Comment on above: Performed By: #### L 501.2300 #### [facility] [address] [place], [address] GAP 12 Normal 5-15 [facility] Comment on above: Performed By: #### L 501.2300 #### [facility] [address] [place], [address] GFR/1.73 sq M.predicted among non-blacks MDRD (S/P/Bld) [Vol rate/Area] 85 mL/min/{1.73_m2} Normal >60 [facility] Comment on above: Result Comment: mL/m in/1.73m2 CKD-EPI Creatinine Equation (2020) Performed By: #### L 501.2300 #### [facility] [address] [place], [address] Globulin (S) [Mass/Vol] 2.8 g/dL Normal 2.2-4.2 [facility] Comment on above: Performed By: #### L 501.2300 #### [facility] [address] [place], [address] Glucose [Mass/Vol] 101 mg/dL High 70-99 [facility] Comment on above: Performed By: #### L 501.2300 #### [facility] [address] [place], [address] Potassium [Moles/Vol] 3.5 mmol/L Normal 3.3-5.1 [facility] Comment on above: Performed By: #### L 501.2300 #### [facility] [address] [place], [address] Sodium [Moles/Vol] 140 mmol/L Normal 133-145 [facility] Comment on above: Performed By: #### L 501.2300 #### [facility] [address] [place], [address] T PROT 6.9 g/dL Normal 5.9-8.4 [facility] Comment on above: Performed By: #### L 501.2300 #### [facility] [address] [place], [address] Urea nitrogen [Mass/Vol] 15 mg/dL Normal 4-19 [facility] Comment on above: Performed By: #### L 501.2300 #### [facility] [address] [place], [address] Eosinophil percentageOrdered By: Arnaud Borja on 03-12-2025 Eosinophils/100 WBC (Bld) 2.0 % 0-5 [facility] Erythrocyte distribution wid th ratioOrdered By: Arnaud Borja on 03-12-2025 Erythrocyte distribution width (RBC) [Ratio] 13.2 % 11.6-14.6 [facility] Erythrocyte distribution wid th standard deviationOrdered By: Arnaud Borja on 03-12-2025 Erythrocyte distribution width (RBC) [Ratio] 41.3 fl 35.1-43.9 [facility] Glomerular filtration rate ( GFR) estimation/1.73 sq m using serum, plasma, or whole bOrdered By: Arnaud Borja on 03-12-2025 GFR/1.73 sq M.predicted among non-blacks MDRD (S/P/Bld) [Vol rate/Area] 85 mL/min/{1.73_m2} >60 [facility] Comment on above: mL/min/1.73m2 CKD-EP I Creatinine Equation (2020) Hematocrit Auto (Bld) [Volum e fraction]Ordered By: Arnaud Borja on 03-12-2025 Hematocrit (Bld) [Volume fraction] 30.2 % Low 37-47 [facility] Hemoglobin measurementOrdere d By: Arnaud Borja on 03-12-2025 Hemoglobin (Bld) [Mass/Vol] 10.1 g/dL Low 12.0-15.0 [facility] Immature granulocytes/100 WB C Auto (Bld)Ordered By: Arnaud Borja on 03-12-2025 Immature granulocytes/100 WBC (Bld) 0.200 % 0.0-0.9 [facility] Comment on above: IG% - Immature Granu locytes (promyelocytes, myelocytes and metamyelocytes) > 1% indicates that a LEFT SHIFT is Present. Laboratory - Chemistry and C hemistry - challengeOrdered By: Arnaud Borja on 03-12-2025 AST [Catalytic activity/Vol] 27 U/L <32 [facility] MCV (mean corpuscular volume ) determinationOrdered By: Arnaud Borja on 03-12-2025 MCV (RBC) [Entitic vol] 87.3 fL 81-99 [facility] Magnesiumon 03-12-2025 Magnesium [Mass/Vol] 2.2 mg/dL Normal 1.5-2.2 [facility] Comment on above: Performed By: #### L 501.2300 #### [facility] [address] [place], [address] Magnesium measurement (mass/ volume)Ordered By: Arnaud Borja on 03-12-2025 Magnesium (Unsp spec) [Mass/Vol] 2.2 mg/dL 1.5-2.2 [facility] Mean corpuscular hemoglobin (MCH) determinationOrdered By: Arnaud Borja on 03-12-2025 MCH (RBC) [Entitic mass] 29.2 pg 27.0-32.0 [facility] Mean corpuscular hemoglobin concentration (MCHC) determinationOrdered By: Arnaud Borja on 03-12-2025 MCHC (RBC) [Mass/Vol] 33.4 g/dL 32-36 [facility] Mean platelet volume determi nationOrdered By: Arnaud Borja on 03-12-2025 Platelet mean volume (Bld) [Entitic vol] 10.0 fL 6.2-12.0 [facility] Monocyte percentageOrdered B y: Arnaud Borja on 03-12-2025 Monocytes/100 WBC (Bld) 9.8 % 0-10 [facility] Neutrophil percentageOrdered By: Arnaud Borja on 03-12-2025 Neutrophils/100 WBC (Bld) 54.8 % 47-70 [facility] Nucleated red blood cell per centageOrdered By: Arnaud Borja on 03-12-2025 Nucleated RBC/100 WBC (Bld) [Ratio] 0 % 0-5 [facility] Oncology Visit Reporton 02-28 Oncology Visit Report [facility] [place] [facility] [address] [place], [place] [address], [place] [address] OFFICE VISIT Date of Service: 03/12/25 0846 MR#: [id number] Acct: [id number] Name: VICKEYHOWARD Rep #: [id number] : 1980 From: Arnaud Borja MD Age/Sex: 44/F Location: [facility] [place] Status: Signed HPI Subjective Date of Service 03/12/25 Chief Complaint Breast cancer on treatment- start [facility] History of Present Illness 44-year-old female menopausal [...] in 100% of tumor cells 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 Treatment summary and response: [facility] February 13, 2025 [facility] Medical History Diarrhea due to drug UTI (uri (more content not included)... Normal [facility] Platelet countOrdered By: Jluis Borja on 03-12-2025 Platelets (Bld) [#/Vol] 388 10*3/uL 150-450 [facility] Potassium measurement (mass/ volume)Ordered By: Arnaud Borja on 03-12-2025 Potassium (Unsp spec) [Mass/Vol] 3.5 mmol/L 3.3-5.1 [facility] RBC Auto (Bld) [#/Vol]Ordere d By: Arnaud Borja on 03-12-2025 RBC (Bld) [#/Vol] 3.46 10*6/uL Low 4.2-5.4 [facility] Serum creatinine measurement (mass/volume)Ordered By: Arnaud Borja on 03-12-2025 Creatinine [Mass/Vol] 0.86 mg/dL 0.70-1.20 [facility] Serum globulin measurementOr dered By: Arnaud Borja on 03-12-2025 Globulin (S) [Mass/Vol] 2.8 g/dL 2.2-4.2 [facility] Serum glucose measurement (m ass/volume)Ordered By: Arnaud Borja on 03-12-2025 Glucose [Mass/Vol] 101 mg/dL High 70-99 [facility] Serum or plasma alanine rainey otransferase (ALT) measurementOrdered By: Arnaud Borja on 03-12-2025 ALT [Catalytic activity/Vol] 27 U/L <35 [facility] Serum or plasma albumin ceasar urement (mass/volume)Ordered By: Arnaud Borja on 03-12-2025 Albumin [Mass/Vol] 4.1 g/dL 3.5-5.0 [facility] Serum or plasma albumin/glob ulin mass ratioOrdered By: Arnaud Borja on 03-12-2025 Albumin/Globulin [Mass ratio] 1.5 {ratio} 0.9-2.4 [facility] Serum or plasma alkaline dasia sphatase measurementOrdered By: Arnaud Borja on 03-12-2025 ALP [Catalytic activity/Vol] 101 U/L 35-104 [facility] Serum or plasma calcium ceasar urement (mass/volume)Ordered By: Arnaud Borja on 03-12-2025 Calcium [Mass/Vol] 9.5 mg/dL 7.6-11.0 [facility] Serum or plasma urea nitroge n measurement (mass/volume)Ordered By: Arnaud Borja on 03-12-2025 Urea nitrogen [Mass/Vol] 15 mg/dL 4-19 [facility] Sodium levelOrdered By: Meir Borja on 03-12-2025 Sodium [Moles/Vol] 140 mmol/L 133-145 [facility] Total proteinOrdered By: Charanjit Borja on 03-12-2025 Protein [Mass/Vol] 6.9 g/dL 5.9-8.4 [facility] White blood cell (WBC) count Ordered By: Arnaud Borja on 03-12-2025 WBC (Bld) [#/Vol] 5.9 10*3/uL 4.4-11.0 [facility] CBC W/Diff, Automatedon 08-0 -2024 Absolute Neut Normal 2.0-7.7 [facility] Comment on above: Result Comment: OM C ANCEL REQUEST Performed By: #### L 500.4050, L100.0100 #### [facility] [address] [place], [address] HCT Normal 37-47 [facility] Comment on above: Result Comment: OM C ANCEL REQUEST Performed By: #### L 500.4050, L100.0100 #### [facility] [address] [place], [address] HGB Normal 12.0-15.0 [facility] Comment on above: Result Comment: OM C ANCEL REQUEST Performed By: #### L 500.4050, L100.0100 #### [facility] [address] [place], [address] MCH Normal 27.0-32.0 [facility] Comment on above: Result Comment: OM C ANCEL REQUEST Performed By: #### L 500.4050, L100.0100 #### [facility] [address] [place], [address] MCHC Normal 32-36 [facility] Comment on above: Result Comment: OM C ANCEL REQUEST Performed By: #### L 500.4050, L100.0100 #### [facility] [address] [place], [address] MCV Normal 81-99 [facility] Comment on above: Result Comment: OM C ANCEL REQUEST Performed By: #### L 500.4050, L100.0100 #### [facility] [address] [place], [address] NEUT% Normal 47-70 [facility] Comment on above: Result Comment: OM C ANCEL REQUEST Performed By: #### L 500.4050, L100.0100 #### [facility] [address] [place], [address] PLT Normal 150-450 [facility] Comment on above: Result Comment: OM C ANCEL REQUEST Performed By: #### L 500.4050, L100.0100 #### [facility] [address] [place], [address] RBC Normal 4.2-5.4 [facility] Comment on above: Result Comment: OM C ANCEL REQUEST Performed By: #### L 500.4050, L100.0100 #### [facility] [address] [place], [address] RDW CV Normal 11.6-14.6 [facility] Comment on above: Result Comment: OM C ANCEL REQUEST Performed By: #### L 500.4050, L100.0100 #### [facility] [address] [place], [address] RDW SD Normal 35.1-43.9 [facility] Comment on above: Result Comment: OM C ANCEL REQUEST Performed By: #### L 500.4050, L100.0100 #### [facility] [address] [place], [address] WBC Normal 4.4-11.0 [facility] Comment on above: Result Comment: OM C ANCEL REQUEST Performed By: #### L 500.4050, L100.0100 #### [facility] [address] [place], [address] Comprehensive Metabolic Prof ilon 03-06-2025 ALB Normal 3.5-5.0 [facility] Comment on above: Result Comment: OM C ANCEL REQUEST Performed By: #### L 500.4050, L100.0100 #### [facility] [address] [place], [address] ALK PHOS Normal 35-104 [facility] Comment on above: Result Comment: OM C ANCEL REQUEST Performed By: #### L 500.4050, L100.0100 #### [facility] [address] [place], [address] ALT Normal <=34 [facility] Comment on above: Result Comment: OM C ANCEL REQUEST Performed By: #### L 500.4050, L100.0100 #### [facility] [address] [place], [address] AST Normal <=31 [facility] Comment on above: Result Comment: OM C ANCEL REQUEST Performed By: #### L 500.4050, L100.0100 #### [facility] [address] [place], [address] BUN Normal 4-19 [facility] Comment on above: Result Comment: OM C ANCEL REQUEST Performed By: #### L 500.4050, L100.0100 #### [facility] [address] [place], [address] BUN/CRE Normal 10-20 [facility] Comment on above: Result Comment: OM C ANCEL REQUEST Performed By: #### L 500.4050, L100.0100 #### [facility] [address] [place], [address] Calcium Normal 7.6-11.0 [facility] Comment on above: Result Comment: OM C ANCEL REQUEST Performed By: #### L 500.4050, L100.0100 #### [facility] [address] [place], [address] CL Normal 98-108 [facility] Comment on above: Result Comment: OM C ANCEL REQUEST Performed By: #### L 500.4050, L100.0100 #### [facility] [address] [place], [address] CO2 Normal 21.0-32.0 [facility] Comment on above: Result Comment: OM C ANCEL REQUEST Performed By: #### L 500.4050, L100.0100 #### [facility] [address] [place], [address] CREAT,SERUM Normal 0.70-1.20 [facility] Comment on above: Result Comment: OM C ANCEL REQUEST Performed By: #### L 500.4050, L100.0100 #### [facility] [address] [place], [address] eGFR Normal >60 [facility] Comment on above: Result Comment: OM C ANCEL REQUEST Performed By: #### L 500.4050, L100.0100 #### [facility] [address] [place], [address] GAP Normal 5-15 [facility] Comment on above: Result Comment: OM C ANCEL REQUEST Performed By: #### L 500.4050, L100.0100 #### [facility] [address] [place], [address] GLU Normal 70-99 [facility] Comment on above: Result Comment: OM C ANCEL REQUEST Performed By: #### L 500.4050, L100.0100 #### [facility] [address] [place], [address] Potassium Normal 3.3-5.1 [facility] Comment on above: Result Comment: OM C ANCEL REQUEST Performed By: #### L 500.4050, L100.0100 #### [facility] [address] [place], [address] T BILI Normal 0.00-1.30 [facility] Comment on above: Result Comment: OM C ANCEL REQUEST Performed By: #### L 500.4050, L100.0100 #### [facility] [address] [place], [address] T PROT Normal 5.9-8.4 [facility] Comment on above: Result Comment: OM C ANCEL REQUEST Performed By: #### L 500.4050, L100.0100 #### [facility] [address] [place], [address] Comprehensive Metabolic Profil Normal 133-145 [facility] Comment on above: Result Comment: OM C ANCEL REQUEST Performed By: #### L 500.4050, L100.0100 #### [facility] [address] [place], [address] Absolute lymphocyte countOrd ered By: Arnaud Borja on 02-20-2025 Lymphocytes Auto (Unsp spec) [#/Vol] 1.96 10*3/uL 0.83-4.51 [facility] Absolute neutrophil countOrd ered By: Arnaud Borja on 02-20-2025 Neutrophils (Bld) [#/Vol] 3.0 10*3/uL 2.0-7.7 [facility] Anion gap in Serum or Plasma Ordered By: Arnaud Borja on 02-20-2025 Anion gap [Moles/Vol] 13 mmol/L 5- [facility] Automated lymphocyte count a s percentage of total leukocytesOrdered By: Arnaud Borja on 02-20-2025 Lymphocytes/100 WBC Auto (Unsp spec) 31.2 % 19-41 [facility] BUN/creatinine ratioOrdered By: Arnaud Borja on 02-20-2025 Urea nitrogen/Creatinine [Mass ratio] 15.4 mg/mg 10- [facility] Basic Metabolic Profile (BMP )on 02-20-2025 BUN/CRE 15.4 RATIO Normal - [facility] Comment on above: Performed By: #### L 500.2500, L501.5200, L100.0100 #### [facility] [address] [place], [address] ECRCL 81.77 ml/min Normal 50-250 [facility] Comment on above: Performed By: #### L 500.2500, L501.5200, L100.0100 #### [facility] [address] [place], [address] GAP 13 Normal 5-15 [facility] Comment on above: Performed By: #### L 500.2500, L501.5200, L100.0100 #### [facility] [address] [place], [address] Potassium [Moles/Vol] 3.6 mmol/L Normal 3.3-5.1 [facility] Comment on above: Performed By: #### L 500.2500, L501.5200, L100.0100 #### [facility] [address] [place], [address] Basophil percentageOrdered B y: Arnaud Borja on 02-20-2025 Basophils/100 WBC (Bld) 0.3 % 0-1 [facility] Bilirubin Test strip Ql (U)O rdered By: Kelsey Holland on 02-20-2025 Bilirubin Ql (U) 1 mg/dL High Negative [facility] Comment on above: COLOR OF URINE MAY A FFECT DIPSTICK RESULTS. Blood manual differential co mment interpretation (narrative result)Ordered By: Arnaud Borja on 02-20-2025 Manual differential comment Miguel Angel (Bld) [Interp] SCANNED [facility] CBC W/Diff, Automatedon 01-29 PLT EST SLT DEC Normal ADEQ [facility] Comment on above: Performed By: #### L 500.2500, L501.5200, L100.0100 #### [facility] [address] [place], [address] Platelet mean volume (Bld) [Entitic vol] 11.4 fL Normal 6.2-12.0 [facility] Comment on above: Performed By: #### L 500.2500, L501.5200, L100.0100 #### [facility] [address] [place], [address] SMEAR COMMENT SCANNED Normal [facility] Comment on above: Performed By: #### L 500.2500, L501.5200, L100.0100 #### [facility] [address] [place], [address] Platelets (Bld) [#/Vol] 141 10*3/uL Low 150-450 [facility] Comment on above: Performed By: #### L 500.2500, L501.5200, L100.0100 #### [facility] [address] [place], [address] WBC (Bld) [#/Vol] 6.3 10*3/uL Normal 4.4-11.0 [facility] Comment on above: Performed By: #### L 500.2500, L501.5200, L100.0100 #### [facility] [address] [place], [address] Carbon dioxide, total [Moles /volume] in Central venous bloodOrdered By: Arnaud Borja on 02-20-2025 CO2 [Moles/Vol] 22.9 mmol/L Normal 21.0-32.0 [facility] Comment on above: Performed By: #### L 500.2500, L501.5200, L100.0100 #### [facility] [address] [place], [address] Chloride assayOrdered By: Jluis Borja on 02-20-2025 Chloride [Moles/Vol] 100 mmol/L Normal 98-108 [facility] Comment on above: Performed By: #### L 500.2500, L501.5200, L100.0100 #### [facility] [address] [place], [address] Eosinophil percentageOrdered By: Arnaud Borja on 02-20-2025 Eosinophils/100 WBC (Bld) 0.3 % 0-5 [facility] Erythrocyte distribution wid th ratioOrdered By: Arnaud Borja on 02-20-2025 Erythrocyte distribution width (RBC) [Ratio] 11.9 % 11.6-14.6 [facility] Erythrocyte distribution wid th standard deviationOrdered By: Arnaud Borja on 02-20-2025 Erythrocyte distribution width (RBC) [Ratio] 36.2 fl 35.1-43.9 [facility] Glomerular filtration rate ( GFR) estimation/1.73 sq m using serum, plasma, or whole bOrdered By: Arnaud Borja on 02-20-2025 GFR/1.73 sq M.predicted among non-blacks MDRD (S/P/Bld) [Vol rate/Area] 95 mL/min/{1.73_m2} Normal >60 [facility] Comment on above: mL/min/1.73m2 CKD-EP I Creatinine Equation (2020) Result Comment: mL/m in/1.73m2 CKD-EPI Creatinine Equation (2020) Performed By: #### L 500.2500, L501.5200, L100.0100 #### [facility] [address] [place], [place], [id number] Hematocrit Auto (Bld) [Volum e fraction]Ordered By: Arnaud Borja on 02-20-2025 Hematocrit (Bld) [Volume fraction] 37.4 % 37-47 [facility] Hemoglobin measurementOrdere d By: Arnaud Borja on 02-20-2025 Hemoglobin (Bld) [Mass/Vol] 12.5 g/dL 12.0-15.0 [facility] Hyaline casts LM.LPF (Urine sed) [#/Area]Ordered By: Kelsey Holland on 02-20-2025 Hyaline casts (Urine sed) [#/Area] 0 /[LPF] 0-5 [facility] Immature granulocytes/100 WB C Auto (Bld)Ordered By: Arnaud Borja on 02-20-2025 Immature granulocytes/100 WBC (Bld) 1.400 % High 0.0-0.9 [facility] Comment on above: IG% - Immature Granu locytes (promyelocytes, myelocytes and metamyelocytes) > 1% indicates that a LEFT SHIFT is Present. Ketones Test strip Ql (U)Ord ered By: Kelsey Holland on 02-20-2025 Ketones Ql (U) Negative Negative [facility] MCV (mean corpuscular volume ) determinationOrdered By: Arnaud Borja on 02-20-2025 MCV (RBC) [Entitic vol] 84.2 fL 81-99 [facility] Magnesiumon 02-20-2025 Magnesium [Mass/Vol] 1.9 mg/dL Normal 1.5-2.2 [facility] Comment on above: Performed By: #### L 500.2500, L501.5200, L100.0100 #### [facility] [address] [place], [address] Magnesium measurement (mass/ volume)Ordered By: Arnaud Borja on 02-20-2025 Magnesium (Unsp spec) [Mass/Vol] 1.9 mg/dL 1.5-2.2 [facility] Mean corpuscular hemoglobin (MCH) determinationOrdered By: Arnaud Borja on 02-20-2025 MCH (RBC) [Entitic mass] 28.2 pg 27.0-32.0 [facility] Mean corpuscular hemoglobin concentration (MCHC) determinationOrdered By: Arnaud Borja on 02-20-2025 MCHC (RBC) [Mass/Vol] 33.4 g/dL 32-36 [facility] Microscopic analysis of urin e for red blood cells (RBC)Ordered By: Kelsey Holland on 02-20-2025 Microscopic analysis of urine for red blood cells (RBC) 0-5 SEEN /hpf 0-5 [facility] Monocyte percentageOrdered B y: Arnaud Borja on 02-20-2025 Monocytes/100 WBC (Bld) 18.8 % High 0-10 [facility] Mucus LM Ql (Urine sed)Order ed By: Kelsey Holland on 02-20-2025 Mucus Ql (Urine sed) 0 SEEN /hpf [facility] Neutrophil percentageOrdered By: Arnaud Borja on 02-20-2025 Neutrophils/100 WBC (Bld) 48.0 % 47-70 [facility] Nitrite Test strip Ql (U)Ord ered By: Kelsey Holland on 02-20-2025 Nitrite Ql (U) Positive High Negative [facility] Nucleated red blood cell per centageOrdered By: Arnaud Borja on 02-20-2025 Nucleated RBC/100 WBC (Bld) [Ratio] 0 % 0-5 [facility] Oncology Visit Reporton 01-29 Oncology Visit Report [facility] [address] [place] [address] OFFICE VISIT Date of Service: 02/20/25 1505 MR#: [id number] Acct: [id number] Name: HOWARD HALL Rep #: [id number] : 1980 From: Kelsey Holland NP [employer] Age/Sex: 44/F Location: [facility] Status: Signed HPI Subjective Date of Service 02/20/25 Chief Complaint Breast cancer on treatment- start [facility] History of Present Illness 44-year-old female menopausal [...] in 100% of tumor cells 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 Normal [facility] Platelet estimateOrdered By: Arnaud Borja on 02-20-2025 Platelets LM Ql (Bld) SLT DEC ADEQ [facility] Potassium measurement (mass/ volume)Ordered By: Arnaud Borja on 02-20-2025 Potassium (Unsp spec) [Mass/Vol] 3.6 mmol/L 3.3-5.1 [facility] Protein Test strip Ql (U)Ord ered By: Kelsey Holland on 02-20-2025 Protein Ql (U) 30 mg/dl High Negative [facility] RBC Auto (Bld) [#/Vol]Ordere d By: Arnaud Borja on 02-20-2025 RBC (Bld) [#/Vol] 4.44 10*6/uL 4.2-5.4 [facility] Serum creatinine measurement (mass/volume)Ordered By: Arnaud Borja on 02-20-2025 Creatinine [Mass/Vol] 0.79 mg/dL Normal 0.70-1.20 [facility] Comment on above: Performed By: #### L 500.2500, L501.5200, L100.0100 #### [facility] [address] [place], [place], [id number] Serum glucose measurement (m ass/volume)Ordered By: Arnaud Borja on 02-20-2025 Glucose [Mass/Vol] 131 mg/dL High 70-99 [facility] Comment on above: Performed By: #### L 500.2500, L501.5200, L100.0100 #### [facility] [address] [place], [address] Serum or plasma calcium ceasar urement (mass/volume)Ordered By: Arnaud Huong on 02-20-2025 Calcium [Mass/Vol] 9.6 mg/dL Normal 7.6-11.0 [facility] Comment on above: Performed By: #### L 500.2500, L501.5200, L100.0100 #### [facility] [address] [place], [address] Serum or plasma urea nitroge n measurement (mass/volume)Ordered By: Meirwes Borja on 02-20-2025 Urea nitrogen [Mass/Vol] 12 mg/dL Normal 4-19 [facility] Comment on above: Performed By: #### L 500.2500, L501.5200, L100.0100 #### [facility] [address] [place], [address] Sodium levelOrdered By: Meir Crummusa on 02-20-2025 Sodium [Moles/Vol] 137 mmol/L Normal 133-145 [facility] Comment on above: Performed By: #### L 500.2500, L501.5200, L100.0100 #### [facility] [address] [place], [address] Squamous epithelial cells de tection in urine sediment by light microscopyOrdered By: Kelsey Holland on 02-20-2025 Epithelial cells.squamous LM Ql (Urine sed) 5-10 SEEN /hpf 5-10 [facility] Urinalysis, Completeon 02-20 CAST,HYALINE 0-5 SEEN Normal 0-5 [facility] Comment on above: Order Comment: COLLE CTOR TO SPECIFY Performed By: #### L 500.2500, L501.5200, L100.0100 #### [facility] [address] [place], [address] EPI,SQUAMOUS 5-10 SEEN Normal 5-10 [facility] Comment on above: Order Comment: BENNIE CTOR TO SPECIFY Performed By: #### L 500.2500, L501.5200, L100.0100 #### [facility] [address] [place], [address] RBC 0-5 SEEN Normal 0-5 [facility] Comment on above: Order Comment: COLLE CTOR TO SPECIFY Performed By: #### L 500.2500, L501.5200, L100.0100 #### [facility] [address] [place], [address] WBC 10-25 SEEN Normal 0-5 [facility] Comment on above: Order Comment: BENNIE CTOR TO SPECIFY Performed By: #### L 500.2500, L501.5200, L100.0100 #### [facility] [address] [place], [address] BACTERIA 3+ /hpf Normal None Seen [facility] Comment on above: Order Comment: BENNIE CTOR TO SPECIFY Performed By: #### L 500.2500, L501.5200, L100.0100 #### [facility] [address] [place], [address] Mucus Ql (Urine sed) 0 SEEN Normal [facility] Comment on above: Order Comment: BENNIE CTOR TO SPECIFY Performed By: #### L 500.2500, L501.5200, L100.0100 #### [facility] [address] [place], [address] Urine clarityOrdered By: Ad Holland on 02-20-2025 Clarity (U) Sl. Cloudy Clear [facility] Urine color determinationOrd ered By: Kelsey Holland on 02-20-2025 Color (U) Straw Yellow [facility] Urine glucose detectionOrder ed By: Kelsey Holland on 02-20-2025 Glucose Ql (U) Normal mg/dl Normal [facility] Urine leukocyte esterase det ection by dipstickOrdered By: Kelsey Holland on 02-20-2025 Leukocyte esterase Test strip Ql (U) 25 /ul High Negative [facility] Urine pHOrdered By: Kelsey vanegas on 02-20-2025 pH (U) 6.0 [pH] 5.0 - 8.0 [facility] Urine sediment bacteria coun t by microscopy (number/high power field)Ordered By: Kelsey Holland on 02-20-2025 Bacteria LM.HPF (Urine sed) [#/Area] 3 /[HPF] None Seen [facility] Urine specific gravity measu rementOrdered By: Kelsey Holland on 02-20-2025 Specific gravity (U) [Rel density] 1.015 1.002-1.030 [facility] Urine urobilinogen measureme ntOrdered By: Kelsey Holland on 02-20-2025 Urobilinogen Ql (U) Normal mg/dl Normal [facility] White blood cell countOrdere d By: Kelsey Holland on 02-20-2025 White blood cell count 10-25 SEEN /hpf 0-5 [facility] Absolute lymphocyte countOrd ered By: Arnaud Borja on 02-13-2025 Lymphocytes Auto (Unsp spec) [#/Vol] 0.98 10*3/uL 0.83-4.51 [facility] Absolute neutrophil countOrd ered By: Arnaud Borja on 02-13-2025 Neutrophils (Bld) [#/Vol] 4.4 10*3/uL 2.0-7.7 [facility] Anion gap in Serum or Plasma Ordered By: Arnaud Borja on 02-13-2025 Anion gap [Moles/Vol] 11 mmol/L 5-15 [facility] Automated lymphocyte count a s percentage of total leukocytesOrdered By: Arnaud Borja on 02-13-2025 Lymphocytes/100 WBC Auto (Unsp spec) 17.5 % Low 19-41 [facility] BUN/creatinine ratioOrdered By: Arnaud Borja on 02-13-2025 Urea nitrogen/Creatinine [Mass ratio] 16.1 mg/mg 10-20 [facility] Basophil percentageOrdered B y: Arnaud Borja on 02-13-2025 Basophils/100 WBC (Bld) 0.7 % 0-1 [facility] Bilirubin, totalOrdered By: Arnaud Borja on 02-13-2025 Bilirubin [Mass/Vol] 0.15 mg/dL 0.00-1.30 [facility] CBC W/Diff, Automatedon 01-28 Absolute Lymph 0.98 X10 3/uL Normal 0.83-4.51 [facility] Comment on above: Performed By: #### L 500.4050, L100.0100 #### [facility] [address] [place], [address] Absolute Neut 4.4 X10 3/uL Normal 2.0-7.7 [facility] Comment on above: Performed By: #### L 500.4050, L100.0100 #### [facility] [address] [place], [address] Basophils/100 WBC (Bld) 0.7 % Normal 0-1 [facility] Comment on above: Performed By: #### L 500.4050, L100.0100 #### [facility] [address] [place], [address] Eosinophils/100 WBC (Bld) 1.2 % Normal 0-5 [facility] Comment on above: Performed By: #### L 500.4050, L100.0100 #### [facility] [address] [place], [address] Erythrocyte distribution width (RBC) [Ratio] 12.0 % Normal 11.6-14.6 [facility] Comment on above: Performed By: #### L 500.4050, L100.0100 #### [facility] [address] [place], [address] Hematocrit (Bld) [Volume fraction] 37.1 % Normal 37-47 [facility] Comment on above: Performed By: #### L 500.4050, L100.0100 #### [facility] [address] [place], [address] Hemoglobin (Bld) [Mass/Vol] 12.3 g/dL Normal 12.0-15.0 [facility] Comment on above: Performed By: #### L 500.4050, L100.0100 #### [facility] [address] [place], [address] IG% 0.400 Normal 0.0-0.9 [facility] Comment on above: Result Comment: IG% - Immature Granulocytes (promyelocytes, myelocytes and metamyelocytes) > 1% indicates that a LEFT SHIFT is Present. Performed By: #### L 500.4050, L100.0100 #### [facility] [address] [place], [address] Lymphocytes/100 WBC (Bld) 17.5 % Low 19-41 [facility] Comment on above: Performed By: #### L 500.4050, L100.0100 #### [facility] [address] [place], [address] MCH (RBC) [Entitic mass] 28.5 pg Normal 27.0-32.0 [facility] Comment on above: Performed By: #### L 500.4050, L100.0100 #### [facility] [address] [place], [address] MCHC (RBC) [Mass/Vol] 33.2 g/dL Normal 32-36 [facility] Comment on above: Performed By: #### L 500.4050, L100.0100 #### [facility] [address] [place], [address] MCV (RBC) [Entitic vol] 85.9 fL Normal 81-99 [facility] Comment on above: Performed By: #### L 500.4050, L100.0100 #### [facility] [address] [place], [address] Monocytes/100 WBC (Bld) 1.8 % Normal 0-10 [facility] Comment on above: Performed By: #### L 500.4050, L100.0100 #### [facility] [address] [place], [address] Neutrophils/100 WBC (Bld) 78.4 % High 47-70 [facility] Comment on above: Performed By: #### L 500.4050, L100.0100 #### [facility] [address] [place], [address] Nucleated RBC (Bld) [#/Vol] 0 10*3/uL Normal 0-5 [facility] Comment on above: Performed By: #### L 500.4050, L100.0100 #### [facility] [address] [place], [address] Platelet mean volume (Bld) [Entitic vol] 10.8 fL Normal 6.2-12.0 [facility] Comment on above: Performed By: #### L 500.4050, L100.0100 #### [facility] [address] [place], [address] Platelets (Bld) [#/Vol] 236 10*3/uL Normal 150-450 [facility] Comment on above: Performed By: #### L 500.4050, L100.0100 #### [facility] [address] [place], [address] RBC (Bld) [#/Vol] 4.32 10*6/uL Normal 4.2-5.4 [facility] Comment on above: Performed By: #### L 500.4050, L100.0100 #### [facility] [address] [place], [address] RDW SD 38.0 fl Normal 35.1-43.9 [facility] Comment on above: Performed By: #### L 500.4050, L100.0100 #### [facility] [address] [place], [address] WBC (Bld) [#/Vol] 5.6 10*3/uL Normal 4.4-11.0 [facility] Comment on above: Performed By: #### L 500.4050, L100.0100 #### [facility] [address] [place], [address] Carbon dioxide, total [Moles /volume] in Central venous bloodOrdered By: Arnaud Borja on 02-13-2025 CO2 [Moles/Vol] 23.9 mmol/L 21.0-32.0 [facility] Chloride assayOrdered By: Jluis Borja on 02-13-2025 Chloride [Moles/Vol] 105 mmol/L 98-108 [facility] Comprehensive Metabolic Prof ilon 02-13-2025 Albumin [Mass/Vol] 4.4 g/dL Normal 3.5-5.0 [facility] Comment on above: Performed By: #### L 500.4050, L100.0100 #### [facility] [address] [place], [address] Albumin/Globulin [Mass ratio] 1.4 {ratio} Normal 0.9-2.4 [facility] Comment on above: Performed By: #### L 500.4050, L100.0100 #### [facility] [address] [place], [address] ALK PHOS 103 U/L Normal 35-104 [facility] Comment on above: Performed By: #### L 500.4050, L100.0100 #### [facility] [address] [place], [address] ALT [Catalytic activity/Vol] 20 U/L Normal <=34 [facility] Comment on above: Performed By: #### L 500.4050, L100.0100 #### [facility] [address] [place], [address] AST [Catalytic activity/Vol] 23 U/L Normal <=31 [facility] Comment on above: Performed By: #### L 500.4050, L100.0100 #### [facility] [address] [place], [address] Bilirubin [Mass/Vol] 0.15 mg/dL Normal 0.00-1.30 [facility] Comment on above: Performed By: #### L 500.4050, L100.0100 #### [facility] [address] [place], [address] BUN/CRE 16.1 RATIO Normal 10-20 [facility] Comment on above: Performed By: #### L 500.4050, L100.0100 #### [facility] [address] [place], [address] Calcium [Mass/Vol] 9.5 mg/dL Normal 7.6-11.0 [facility] Comment on above: Performed By: #### L 500.4050, L100.0100 #### [facility] [address] [place], [address] Chloride [Moles/Vol] 105 mmol/L Normal 98-108 [facility] Comment on above: Performed By: #### L 500.4050, L100.0100 #### [facility] [address] [place], [address] CO2 [Moles/Vol] 23.9 mmol/L Normal 21.0-32.0 [facility] Comment on above: Performed By: #### L 500.4050, L100.0100 #### [facility] [address] [place], [address] Creatinine [Mass/Vol] 0.79 mg/dL Normal 0.70-1.20 [facility] Comment on above: Performed By: #### L 500.4050, L100.0100 #### [facility] [address] [place], [address] ECRCL 81.77 ml/min Normal 50-250 [facility] Comment on above: Performed By: #### L 500.4050, L100.0100 #### [facility] [address] [place], [address] GAP 11 Normal 5-15 [facility] Comment on above: Performed By: #### L 500.4050, L100.0100 #### [facility] [address] [place], [address] GFR/1.73 sq M.predicted among non-blacks MDRD (S/P/Bld) [Vol rate/Area] 94 mL/min/{1.73_m2} Normal >60 [facility] Comment on above: Result Comment: mL/m in/1.73m2 CKD-EPI Creatinine Equation (2020) Performed By: #### L 500.4050, L100.0100 #### [facility] [address] [place], [address] Globulin (S) [Mass/Vol] 3.1 g/dL Normal 2.2-4.2 [facility] Comment on above: Performed By: #### L 500.4050, L100.0100 #### [facility] [address] [place], [address] Glucose [Mass/Vol] 134 mg/dL High 70-99 [facility] Comment on above: Performed By: #### L 500.4050, L100.0100 #### [facility] [address] [place], [address] Potassium [Moles/Vol] 3.9 mmol/L Normal 3.3-5.1 [facility] Comment on above: Performed By: #### L 500.4050, L100.0100 #### [facility] [address] [place], [address] Sodium [Moles/Vol] 140 mmol/L Normal 133-145 [facility] Comment on above: Performed By: #### L 500.4050, L100.0100 #### [facility] [address] [place], [address] T PROT 7.5 g/dL Normal 5.9-8.4 [facility] Comment on above: Performed By: #### L 500.4050, L100.0100 #### [facility] [address] [place], [address] Urea nitrogen [Mass/Vol] 13 mg/dL Normal 4-19 [facility] Comment on above: Performed By: #### L 500.4050, L100.0100 #### [facility] [address] [place], [address] Eosinophil percentageOrdered By: Arnaud Borja on 02-13-2025 Eosinophils/100 WBC (Bld) 1.2 % 0-5 [facility] Erythrocyte distribution wid th ratioOrdered By: [facility] on 02-13-2025 Erythrocyte distribution width (RBC) [Ratio] 12.0 % 11.6-14.6 [facility] Erythrocyte distribution wid th standard deviationOrdered By: [facility] on 02-13-2025 Erythrocyte distribution width (RBC) [Ratio] 38.0 fl 35.1-43.9 [facility] Glomerular filtration rate ( GFR) estimation/1.73 sq m using serum, plasma, or whole bOrdered By: Arnaud Borja on 02-13-2025 GFR/1.73 sq M.predicted among non-blacks MDRD (S/P/Bld) [Vol rate/Area] 94 mL/min/{1.73_m2} >60 [facility] Comment on above: mL/min/1.73m2 CKD-EP I Creatinine Equation (2020) Hematocrit Auto (Bld) [Volum e fraction]Ordered By: Arnaud Borja on 02-13-2025 Hematocrit (Bld) [Volume fraction] 37.1 % 37-47 [facility] Hemoglobin measurementOrdere d By: Arnaud Borja on 02-13-2025 Hemoglobin (Bld) [Mass/Vol] 12.3 g/dL 12.0-15.0 [facility] Immature granulocytes/100 WB C Auto (Bld)Ordered By: Arnaud Borja on 02-13-2025 Immature granulocytes/100 WBC (Bld) 0.400 % 0.0-0.9 [facility] Comment on above: IG% - Immature Granu locytes (promyelocytes, myelocytes and metamyelocytes) > 1% indicates that a LEFT SHIFT is Present. Laboratory - Chemistry and C hemistry - challengeOrdered By: Arnaud Borja on 02-13-2025 AST [Catalytic activity/Vol] 23 U/L <32 [facility] MCV (mean corpuscular volume ) determinationOrdered By: Arnaud Borja on 02-13-2025 MCV (RBC) [Entitic vol] 85.9 fL 81-99 [facility] Magnesiumon 02-13-2025 Magnesium [Mass/Vol] 2.3 mg/dL High 1.5-2.2 [facility] Comment on above: Performed By: #### L 500.4050, L100.0100 #### [facility] [address] [place] [address], [address] Magnesium measurement (mass/ volume)Ordered By: Arnaud Borja on 02-13-2025 Magnesium (Unsp spec) [Mass/Vol] 2.3 mg/dL High 1.5-2.2 [facility] Mean corpuscular hemoglobin (MCH) determinationOrdered By: Arnaud Borja on 02-13-2025 MCH (RBC) [Entitic mass] 28.5 pg 27.0-32.0 [facility] Mean corpuscular hemoglobin concentration (MCHC) determinationOrdered By: Arnaud Borja on 02-13-2025 MCHC (RBC) [Mass/Vol] 33.2 g/dL 32-36 [facility] Mean platelet volume determi nationOrdered By: Arnaud Borja on 02-13-2025 Platelet mean volume (Bld) [Entitic vol] 10.8 fL 6.2-12.0 [facility] Monocyte percentageOrdered B y: Arnaud Borja on 02-13-2025 Monocytes/100 WBC (Bld) 1.8 % 0-10 [facility] Neutrophil percentageOrdered By: [facility] on 02-13-2025 Neutrophils/100 WBC (Bld) 78.4 % High 47-70 [facility] Nucleated red blood cell per centageOrdered By: [facility] on 02-13-2025 Nucleated RBC/100 WBC (Bld) [Ratio] 0 % 0-5 [facility] Oncology Visit Reporton 01-28 Oncology Visit Report [facility] [place] [facility] [address] 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 Normal [facility] Platelet countOrdered By: Jluis Borja on 02-13-2025 Platelets (Bld) [#/Vol] 236 10*3/uL 150-450 [facility] Potassium measurement (mass/ volume)Ordered By: Arnaud Borja on 02-13-2025 Potassium (Unsp spec) [Mass/Vol] 3.9 mmol/L 3.3-5.1 [facility] RBC Auto (Bld) [#/Vol]Ordere d By: Arnaud Borja on 02-13-2025 RBC (Bld) [#/Vol] 4.32 10*6/uL 4.2-5.4 [facility] Serum creatinine measurement (mass/volume)Ordered By: Arnaud Borja on 02-13-2025 Creatinine [Mass/Vol] 0.79 mg/dL 0.70-1.20 [facility] Serum globulin measurementOr dered By: Arnaud Borja on 02-13-2025 Globulin (S) [Mass/Vol] 3.1 g/dL 2.2-4.2 [facility] Serum glucose measurement (m ass/volume)Ordered By: Arnaud Borja on 02-13-2025 Glucose [Mass/Vol] 134 mg/dL High 70-99 [facility] Serum or plasma alanine rainey otransferase (ALT) measurementOrdered By: Arnaud Borja on 02-13-2025 ALT [Catalytic activity/Vol] 20 U/L <35 [facility] Serum or plasma albumin ceasar urement (mass/volume)Ordered By: Arnaud Borja on 02-13-2025 Albumin [Mass/Vol] 4.4 g/dL 3.5-5.0 [facility] Serum or plasma albumin/glob ulin mass ratioOrdered By: Arnaud Borja on 02-13-2025 Albumin/Globulin [Mass ratio] 1.4 {ratio} 0.9-2.4 [facility] Serum or plasma alkaline dasia sphatase measurementOrdered By: Arnaud Borja on 02-13-2025 ALP [Catalytic activity/Vol] 103 U/L 35-104 [facility] Serum or plasma calcium ceasar urement (mass/volume)Ordered By: Arnaud Borja on 02-13-2025 Calcium [Mass/Vol] 9.5 mg/dL 7.6-11.0 [facility] Serum or plasma urea nitroge n measurement (mass/volume)Ordered By: Arnaud Borja on 02-13-2025 Urea nitrogen [Mass/Vol] 13 mg/dL 4-19 [facility] Sodium levelOrdered By: Meir Borja on 02-13-2025 Sodium [Moles/Vol] 140 mmol/L 133-145 [facility] Total proteinOrdered By: Charanjit Borja on 02-13-2025 Protein [Mass/Vol] 7.5 g/dL 5.9-8.4 [facility] White blood cell (WBC) count Ordered By: Arnaud Borja on 02-13-2025 WBC (Bld) [#/Vol] 5.6 10*3/uL 4.4-11.0 [facility] CBC W/Diff, Automatedon 01-28 Absolute Neut Normal 2.0-7.7 [facility] Comment on above: Result Comment: OM C ANCEL REQUEST Performed By: #### L 500.4050, L100.0100 #### [facility] [address] [place], [address] HCT Normal 37-47 [facility] Comment on above: Result Comment: OM C ANCEL REQUEST Performed By: #### L 500.4050, L100.0100 #### [facility] [address] [place], [address] HGB Normal 12.0-15.0 [facility] Comment on above: Result Comment: OM C ANCEL REQUEST Performed By: #### L 500.4050, L100.0100 #### [facility] [address] [place], [address] MCH Normal 27.0-32.0 [facility] Comment on above: Result Comment: OM C ANCEL REQUEST Performed By: #### L 500.4050, L100.0100 #### [facility] [address] [place], [address] MCHC Normal 32-36 [facility] Comment on above: Result Comment: OM C ANCEL REQUEST Performed By: #### L 500.4050, L100.0100 #### [facility] [address] [place], [address] MCV Normal 81-99 [facility] Comment on above: Result Comment: OM C ANCEL REQUEST Performed By: #### L 500.4050, L100.0100 #### [facility] [address] [place], [address] NEUT% Normal 47-70 [facility] Comment on above: Result Comment: OM C ANCEL REQUEST Performed By: #### L 500.4050, L100.0100 #### [facility] [address] [place], [address] PLT Normal 150-450 [facility] Comment on above: Result Comment: OM C ANCEL REQUEST Performed By: #### L 500.4050, L100.0100 #### [facility] [address] [place], [address] RBC Normal 4.2-5.4 [facility] Comment on above: Result Comment: OM C ANCEL REQUEST Performed By: #### L 500.4050, L100.0100 #### [facility] [address] [place], [address] RDW CV Normal 11.6-14.6 [facility] Comment on above: Result Comment: OM C ANCEL REQUEST Performed By: #### L 500.4050, L100.0100 #### [facility] [address] [place], [address] RDW SD Normal 35.1-43.9 [facility] Comment on above: Result Comment: OM C ANCEL REQUEST Performed By: #### L 500.4050, L100.0100 #### [facility] [address] [place], [address] WBC Normal 4.4-11.0 [facility] Comment on above: Result Comment: OM C ANCEL REQUEST Performed By: #### L 500.4050, L100.0100 #### [facility] [address] [place], [address] Comprehensive Metabolic Prof ilon 02-10-2025 ALB Normal 3.5-5.0 [facility] Comment on above: Result Comment: OM C ANCEL REQUEST Performed By: #### L 500.4050, L100.0100 #### [facility] [address] [place], [address] ALK PHOS Normal 35-104 [facility] Comment on above: Result Comment: OM C ANCEL REQUEST Performed By: #### L 500.4050, L100.0100 #### [facility] [address] [place], [address] ALT Normal <=34 [facility] Comment on above: Result Comment: OM C ANCEL REQUEST Performed By: #### L 500.4050, L100.0100 #### [facility] [address] [place], [address] AST Normal <=31 [facility] Comment on above: Result Comment: OM C ANCEL REQUEST Performed By: #### L 500.4050, L100.0100 #### [facility] [address] [place], [address] BUN Normal 4-19 [facility] Comment on above: Result Comment: OM C ANCEL REQUEST Performed By: #### L 500.4050, L100.0100 #### [facility] [address] [place], [address] BUN/CRE Normal 10-20 [facility] Comment on above: Result Comment: OM C ANCEL REQUEST Performed By: #### L 500.4050, L100.0100 #### [facility] [address] [place], [address] Calcium Normal 7.6-11.0 [facility] Comment on above: Result Comment: OM C ANCEL REQUEST Performed By: #### L 500.4050, L100.0100 #### [facility] [address] [place], [address] CL Normal 98-108 [facility] Comment on above: Result Comment: OM C ANCEL REQUEST Performed By: #### L 500.4050, L100.0100 #### [facility] [address] [place], [address] CO2 Normal 21.0-32.0 [facility] Comment on above: Result Comment: OM C ANCEL REQUEST Performed By: #### L 500.4050, L100.0100 #### [facility] [address] [place], [address] CREAT,SERUM Normal 0.70-1.20 [facility] Comment on above: Result Comment: OM C ANCEL REQUEST Performed By: #### L 500.4050, L100.0100 #### [facility] [address] [place], [address] eGFR Normal >60 [facility] Comment on above: Result Comment: OM C ANCEL REQUEST Performed By: #### L 500.4050, L100.0100 #### [facility] [address] [place], [address] GAP Normal 5-15 [facility] Comment on above: Result Comment: OM C ANCEL REQUEST Performed By: #### L 500.4050, L100.0100 #### [facility] [address] [place], [address] GLU Normal 70-99 [facility] Comment on above: Result Comment: OM C ANCEL REQUEST Performed By: #### L 500.4050, L100.0100 #### [facility] [address] [place], [address] Potassium Normal 3.3-5.1 [facility] Comment on above: Result Comment: OM C ANCEL REQUEST Performed By: #### L 500.4050, L100.0100 #### [facility] [address] [place], [address] T BILI Normal 0.00-1.30 [facility] Comment on above: Result Comment: OM C ANCEL REQUEST Performed By: #### L 500.4050, L100.0100 #### [facility] [address] [place], [address] T PROT Normal 5.9-8.4 [facility] Comment on above: Result Comment: OM C ANCEL REQUEST Performed By: #### L 500.4050, L100.0100 #### [facility] [address] [place], [address] Comprehensive Metabolic Profil Normal 133-145 [facility] Comment on above: Result Comment: JIM Aileen CORBETT REQUEST Performed By: #### L 500.4050, L100.0100 #### [facility] [address] [place], [address] Echocardiogram study reportO rdered By: Cirilo Centeno on 02-05-2025 Study report [facility] [address] [place] [address] ONC Echo Complete 02/05/25 1615 MR#: [id number] Acct: [id number] Name: HOWARD HALL Rep #:[id number] : 1980 44 From: Cirilo Montes De Oca Attending Dr: Dr. Arnaud Borja MD Status: REG CLI Ordering Dr: Arnaud Borja MD Date: 02/05/25 Location: [facility] Sex: F C Admitted: Reason For Study [...] Pablo Date Dictated: 02/05/251614 Date Transcribed: 02/05/251853 [employer] Consultant: Signed [facility] Work Phone: ONC Echo Completeon 02-06-20 ONC Echo Complete [facility] Cardiovascular Services [address] [place] [address] ONC Echo Complete 02/05/251614 MR#: [id number] Acct: [id number] Name: HOWARD HALL Rep #: [id number] : 1980 44 From: Cirilo Centeno MD Attending Dr: Dr. 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 Admits social support is limited. [facility] Medical History (Updated 02/05/25 @ 17:01 by Kelsey Holland NP, HORIZONTAL BORING MILL SET UP OPERATOR-C) Encounter for education Post-menopausal Wears glasses Cancer Depression Anemia Smoker H (more content not included)... 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 Normal [facility] Bone Scan Whole Bodyon 01-17 Bone Scan Whole Body [facility] Imaging Services [address] [place] [address] Bone Scan Whole Body MR#: [id number] Acct: [id number] Name: HOWARD HALL Rep #: [id number] : 1980 F 44 From: Jerry Shaffer DO PCP: Dr. David Ghotra DO Status: REG CLI Study: Bone Scan Whole Body Date of Exam: 01/17/25 Exam# [id number] Ordering Dr: Arnaud Borja MD PROCEDURE: BONE [...] evidence of metastatic breast cancer. Reading Location: [facility] CC: Dr. Arnaud Borja MD; Dr. David Ghotra DO [employer] Consultant: Signed Normal [facility] CT Chest, Abd, Pel w/Contras ton 01-13-2025 CT Chest, Abd, Pel w/Contrast [facility] Imaging Services [address] [place] [address] CT Chest, Abd, Pel w/Contrast MR#: [id number] Acct: [id number] Name: HOWARD HALL Rep #: [id number] : 1980 F 44 From: Figueroa Tinoco MD PCP: Dr. David Alec, DO Status: REG CLI Study: CT Chest, Abd, Pel w/Contrast Date of Exam: Exam# [id number] Ordering Dr: Arnaud Borja MD PROCEDURE: CT [...] 3. Other findings as noted. Reading Location: [facility] CC: Dr. Arnaud Borja MD; Dr. David Ghotra DO [employer] Consultant: Signed Normal [facility] Chest 1 Viewon 01-08-2025 Chest 1 View [facility] Imaging Services [address] [place] [address] Chest 1 View MR#: [id number] Acct: [id number] Name: HOWARD HALL Rep #: [id number] : 1980 F 44 From: Larry shields MD PCP: Dr. David Ghotra DO Status: [facility] Study: Chest 1 View Date of Exam: 01/08/25 Exam# [id number] Ordering Dr: Feliciano Castellon PROCEDURE: CHEST 1 [...] vena cava and right atrium. Reading Location: [place] [address] CC: Dr. Feliciano Castellon MD; Dr. David Ghotra DO [employer] Consultant: Signed Normal [facility] Discharge Instructionon 12-29 Discharge Instruction [facility] Medical Records Department [address] [place] [address] Instructions for Home/Discharge Instructions 01/08/25 1507 MR#: [id number] Acct: [id number] Name: HOWARD HALL Rep #: [id number] : 1980 44 From: Feliciano Castellon MD PCP: Dr. David Ghotra DO Status:REG MNC Discharge Instructions Procedure Gallbladder [...] to schedule 2 week follow up appointment. [phone] Test Results: Test results from this visit will be discussed in further detail at your follow-up appointment, if applicable. Discharge Plan Admission Attending Provider: Feliciano Castellon Primary Care Provider: David Ghotra Instructions Print Language: French Discharge Orders/Prescriptions Prescriptions: No Action citalopram 40 mg tablet 40 mg PO QDAY Referrals / Follow Up: David Ghotra DO [Primary Care Provider] - Disposition Disposition (needs filled in before D/C Order can be placed): Home, Self Care 01/08/25 1510 Feliciano Castellon MD CC: Dr. David Ghotra DO Signed Normal [facility] H AND P Exam - Surgicalon H&P Exam - Surgical [facility] Medical Records Department [address] [place] [address] H P Exam - Surgical 01/08/25 1420 MR#: [id number] Acct: [id number] Name: HOWARD HALL Rep #: [id number] : 1980 44 From: Feliciano Castellon MD PCP: Dr. David Ghotra, DO Status:[facility] Location: [place] [address]-1 HPI - General HPI Narrative HOWARD HALL, [...] willing to proceed. Feliciano Castellon MD Pager: [facility] [address] [place] [address], [address] [place] [address] Office: 01/08/25 1425 Cosigner Signature (if applicable): CC: Dr. Feliciano Castellon MD; Dr. David Ghotra, Signed Normal [facility] MR/POSTOP.[facility] 01-08-2025 MR/POSTOP.[facility] Medical Records Department [address] [place], [place] [address] Anesthesia Postop Eval I 01/08/25 1553 MR#: [id number] Acct: [id number] Name: HOWARD HALL Rep #: [id number] : 1980 44 From: Rebecca Mathews MOLD SANDER PCP: Dr. David Ghotra DO Status:REG SDC Y Race: C Location: [place] [address]- Anesthesia: Postop Eval I Current Vital Signs [...] completed: Yes 01/08/25 1554 Date Rebecca DeForeest MOLD SANDER Cosigner Signature: Date CC: Signed Normal [facility] MR/POSTOP.[facility] Medical Records Department [address] [place] [address] Anesthesia Postop Eval I 01/08/25 1506 MR#: [id number] Acct: [id number] Name: VICKEYHOWARD WILLIAM Falguni Rep #: [id number] : 1980 44 From: Rebecca Mathews MOLD SANDER PCP: Dr. David Ghotra, DO Status:REG SDC Y Race: C Location: [place] [address] Anesthesia: Postop Eval I Current Vital Signs [...] completed: Yes 01/08/25 1508 Date Rebecca DeForeest MOLD SANDER Cosigner Signature: CC: Signed Normal [facility] MR/CEQTQRWA7oe 01-08-2025 MR/POSTOPAN2 [facility] Medical Records Department [address] [place] [address] Anesthesia Postop Eval II 01/08/25 1530 MR#: [id number] Acct: [id number] Name: HOWARD HALL Rep #: [id number] : 1980 44 From: Clyde Starks MD PCP: Dr. David Ghotra, DO Status:REG SDC Y Race: C Location: [place] [address] Anesthesia Postop Eval I Sum Postop Eval Completion status Anesthesia document: Postop Eval 1 completed: Yes Anesthesia Postop Eval I Summary Anesthesia Postop Eval I Summary: Anesthesia Postop Eval I: Assessment Summary Airway patent Yes 01/08/25 15:08 MOLD SANDER.JDEF Spontaneous unlabored Yes 01/08/25 15:08 MOLD SANDER.JDEF respirations Mental status Awake 01/08/25 15:08 MOLD SANDER.JDEF nausea No 01/08/25 15:08 MOLD SANDER.JDEF Vomiting No 01/08/25 15:08 MOLD SANDER.JDEF Anesthesia Postop Eval I: Fluid Summary Crystalloid volume administer 300 01/08/25 15:08 MOLD SANDER.JDEF (ml) Colloids volume administered ( ml) Blood Product volume administered (ml) Total IV fluid infused 300 01/08/25 15:08 MOLD SANDER.JDEF Anesthesia Postop Eval I: Summary Notes Anesthesia Complication No 01/08/25 15:08 MOLD SANDER.JDEF Anesthesia Complication Comment: Post-operative progress note Anesthesia: Postop Eval II Evaluation Mental status: Awake Pain Level: 0 nausea: No Vomiting: No 01/08/25 1530 Date Clyde Starks MD Cosigner Signature: Date CC: Signed Normal [facility] Operative Reporton 5 Operative Report [facility] Medical Records Department [address] [place] [address] Operative Report 01/08/25 1506 MR#: [id number] Acct: [id number] Name: HOWARD HALL Rep #: [id number] : 1980 44 From: Feliciano Castellon MD PCP: Dr. David Ghotra, DO Status:REG [facility] Location: [place] [address] Operative Report (Standard) Operative Information Date of Procedure: 01/08/25 Pre-Operative Diagnosis: Need for vascular access port for chemotherapy Post-Operative Diagnosis: Same Surgery/Procedure Performed: Ultrasound and fluoroscopy guided right chest port placement with utilization of right IJ administrative tech: No Type of Anesthesia: Local MAC RN [...] apply: Implanted device Implanted device details: 8 [place] PowerPort Estimated Blood Loss: 5 Specimen collected: [...] Castellon MD; Dr. David Ghotra DO Signed [facility] MR/PAT.[facility] 01-03-2025 MR/PAT.[facility] Medical Records Department [address] [place] [address] PAT - Anesthesia 01/03/25 0832 MR#: [id number] Acct: [id number] Name: HOWARD HALL Rep #: [id number] : 1980 44 From: Clyde Starks MD PCP: Dr. David Ghotra DO Status:PRE [facility] Y Race: C Location: [facility] Pre-Assessment Diagnosis/Proposed Procedure Planned Operative Procedure(s): (R) Insertion, Vascular Port right possible left Anesthesia History Anesthesia History - medicine technologist: Anesthesia History - medicine technologist Hx Hospitalization No 01/02/25 13:24 Any Problems [...] take am of surgery PONV PONV - medicine technologist: PONV - medicine technologist Female Yes 01/02/25 13:24 HX of Motion [...] 12/25/24 16:04 Respiratory Assessment Respiratory Assessment - medicine technologist: Respiratory Tract Infection Hx - medicine technologist Hx Respiratory Tract Infection No 01/02/25 13:24 STOP Sleep Apnea STOP Sleep Apnea - medicine technologist: STOP Sleep Apnea - medicine technologist Hx Hypertension No 01/02/25 13:24 Hx Sleep [...] 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 Use History - medicine technologist: Tobacco Use History - medicine technologist Tobacco Use Smoking Status Light Smoker (<10/day) 01/02/25 13:24 Hx Tobacco Use Yes 01/02/25 13:24 Years Smoking Packs Smoked per Day 0.5 01/02/25 13:24 Smoking Cessation Date was within the last 15 years Hx Smoking Cessation Date Hx Smoking Cessation Counseling Hematologic Medial History Hematologic Hx - medicine technologist: Hematologic 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 [facility] MR/Aleshia 01-02-2025 MR/ZOHREH.YAHIR [facility] Medical Records Department [address] [place] [address] PAT - Anesthesia 01/02/25 1722 MR#: [id number] Acct: [id number] Name: HOWARD HALL Rep #: [id number] : 1980 44 From: Stuart Rashid MD PCP: Dr. David Ghotra, DO Status:PRE SDC Y Race: C Location: [facility] Pre-Assessment Diagnosis/Proposed Procedure Planned Operative Procedure(s): (R) Insertion, Vascular Port right possible left Anesthesia History Anesthesia History - medicine technologist: Anesthesia History - medicine technologist Hx Hospitalization No 01/02/25 13:24 Any Problems [...] take am of surgery PONV PONV - medicine technologist: PONV - medicine technologist Female Yes 01/02/25 13:24 HX of Motion [...] 12/25/24 16:04 Respiratory Assessment Respiratory Assessment - medicine technologist: Respiratory Tract Infection Hx - medicine technologist Hx Respiratory Tract Infection No 01/02/25 13:24 STOP Sleep Apnea STOP Sleep Apnea - medicine technologist: STOP Sleep Apnea - medicine technologist Hx Hypertension No 01/02/25 13:24 Hx Sleep [...] 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 Use History - medicine technologist: Tobacco Use History - medicine technologist Tobacco Use Smoking Status Light Smoker (<10/day) 01/02/25 13:24 Hx Tobacco Use Yes 01/02/25 13:24 Years Smoking Packs Smoked per Day 0.5 01/02/25 13:24 Smoking Cessation Date was within the last 15 years Hx Smoking Cessation Date Hx Smoking Cessation Counseling Hematologic Medial History Hematologic Hx - medicine technologist: Hematologic 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 Normal [facility] CA 15-3on 12-27-2024 CA 15-3 74.7 U/mL Abnormal 0.0-25.0 [facility] Comment on above: Result Comment: [employer] Electrochemiluminescence Immunoassay (ECLIA) Values obtained with different assay methods or kits cannot be used interchangeably. Results cannot be interpreted as absolute evidence of the presence or absence of malignant disease. Performed at: [address] [id number] Layer Out: Mendez Parmar PhD, Phone: [phone] Performed By: #### L 3100.5040, L100.0100, L500.4050, L400.7600, L3100.5055, L3100.5030 ####[facility] [address] [place], [place], [id number] CA 27.29on 12-27-2024 CA 27.29 103.0 U/mL Abnormal 0.0-38.6 [facility] Comment on above: Result Comment: [employer] Immunochemiluminometric Methodology (ICMA) Values obtained with different assay methods or kits cannot be used interchangeably. Results cannot be interpreted as absolute evidence of the presence or absence of malignant disease. Performed By: #### L 3100.5040, L100.0100, L500.4050, L400.7600, L3100.5055, L3100.5030 ####[facility] [address] [place], [address] Absolute lymphocyte countOrd ered By: Arnaud Borja on 12-25-2024 Lymphocytes Auto (Unsp spec) [#/Vol] 2.39 10*3/uL 0.83-4.51 [facility] Absolute neutrophil countOrd ered By: Arnaud Borja on 12-25-2024 Neutrophils (Bld) [#/Vol] 3.0 10*3/uL 2.0-7.7 [facility] Anion gap in Serum or Plasma Ordered By: Arnaud Borja on 12-25-2024 Anion gap [Moles/Vol] 11 mmol/L 5- [facility] Automated lymphocyte count a s percentage of total leukocytesOrdered By: Arnaud Borja on 12-25-2024 Lymphocytes/100 WBC Auto (Unsp spec) 39.3 % - [facility] BUN/creatinine ratioOrdered By: [facility] on 12-25-2024 Urea nitrogen/Creatinine [Mass ratio] 16.4 mg/mg 10-20 [facility] Basophil percentageOrdered B y: Arnaud Borja on 12-25-2024 Basophils/100 WBC (Bld) 0.7 % 0-1 [facility] Bilirubin, totalOrdered By: Arnaud Borja on 12-25-2024 Bilirubin [Mass/Vol] 0.28 mg/dL 0.00-1.30 [facility] CA 15-3Ordered By: Arnaud alvarado on 12-25-2024 CA 15-3 74.7 U/mL High 0.0-25.0 [facility] Comment on above: [employer] El ectrochemiluminescence Immunoassay(ECLIA)Values obtained with different assay methods or kits cannotbe used interchangeably. Results cannot be interpreted asabsolute evidence of the presence or absence of malignantdisease.Performed at: [address] [id number] Director: Mendez Parmar PhD, Phone: [phone] CA 27.29Ordered By: Arnaud Borja on 12-25-2024 CA 27.29 103.0 U/mL High 0.0-38.6 [facility] Comment on above: [employer] Immu nochemiluminometric Methodology (ICMA)Values obtained with different assay methods or kits cannotbe used interchangeably. Results cannot be interpreted asabsolute evidence of the presence or absence of malignantdisease. CBC W/Diff, Automatedon 11-29 Absolute Lymph 2.39 X10 3/uL Normal 0.83-4.51 [facility] Comment on above: Performed By: #### L 3100.5040, L100.0100, L500.4050, L400.7600, L3100.5055, L3100.5030 ####[facility] [address] [place], [address] Absolute Neut 3.0 X10 3/uL Normal 2.0-7.7 [facility] Comment on above: Performed By: #### L 3100.5040, L100.0100, L500.4050, L400.7600, L3100.5055, L3100.5030 ####[facility] [address] [place], [address] Basophils/100 WBC (Bld) 0.7 % Normal 0-1 [facility] Comment on above: Performed By: #### L 3100.5040, L100.0100, L500.4050, L400.7600, L3100.5055, L3100.5030 ####[facility] [address] [place], [address] Eosinophils/100 WBC (Bld) 3.5 % Normal 0-5 [facility] Comment on above: Performed By: #### L 3100.5040, L100.0100, L500.4050, L400.7600, L3100.5055, L3100.5030 ####[facility] [address] [place], [address] Erythrocyte distribution width (RBC) [Ratio] 12.4 % Normal 11.6-14.6 [facility] Comment on above: Performed By: #### L 3100.5040, L100.0100, L500.4050, L400.7600, L3100.5055, L3100.5030 ####[facility] [address] [place], [address] Hematocrit (Bld) [Volume fraction] 36.2 % Low 37-47 [facility] Comment on above: Performed By: #### L 3100.5040, L100.0100, L500.4050, L400.7600, L3100.5055, L3100.5030 ####[facility] [address] [place], [address] Hemoglobin (Bld) [Mass/Vol] 12.3 g/dL Normal 12.0-15.0 [facility] Comment on above: Performed By: #### L 3100.5040, L100.0100, L500.4050, L400.7600, L3100.5055, L3100.5030 ####[facility] [address] [place], [address] IG% 0.200 Normal 0.0-0.9 [facility] Comment on above: Result Comment: IG% - Immature Granulocytes (promyelocytes, myelocytes and metamyelocytes) > 1% indicates that a LEFT SHIFT is Present. Performed By: #### L 3100.5040, L100.0100, L500.4050, L400.7600, L3100.5055, L3100.5030 ####[facility] [address] [place], [address] Lymphocytes/100 WBC (Bld) 39.3 % Normal 19-41 [facility] Comment on above: Performed By: #### L 3100.5040, L100.0100, L500.4050, L400.7600, L3100.5055, L3100.5030 ####[facility] [address] [place], [address] MCH (RBC) [Entitic mass] 29.0 pg Normal 27.0-32.0 [facility] Comment on above: Performed By: #### L 3100.5040, L100.0100, L500.4050, L400.7600, L3100.5055, L3100.5030 ####[facility] [address] [place], [address] MCHC (RBC) [Mass/Vol] 34.0 g/dL Normal 32-36 [facility] Comment on above: Performed By: #### L 3100.5040, L100.0100, L500.4050, L400.7600, L3100.5055, L3100.5030 ####[facility] [address] [place], [address] MCV (RBC) [Entitic vol] 85.4 fL Normal 81-99 [facility] Comment on above: Performed By: #### L 3100.5040, L100.0100, L500.4050, L400.7600, L3100.5055, L3100.5030 ####[facility] [address] [place], [address] Monocytes/100 WBC (Bld) 7.9 % Normal 0-10 [facility] Comment on above: Performed By: #### L 3100.5040, L100.0100, L500.4050, L400.7600, L3100.5055, L3100.5030 ####[facility] [address] [place], [address] Neutrophils/100 WBC (Bld) 48.4 % Normal 47-70 [facility] Comment on above: Performed By: #### L 3100.5040, L100.0100, L500.4050, L400.7600, L3100.5055, L3100.5030 ####[facility] [address] [place], [address] Nucleated RBC (Bld) [#/Vol] 0 10*3/uL Normal 0-5 [facility] Comment on above: Performed By: #### L 3100.5040, L100.0100, L500.4050, L400.7600, L3100.5055, L3100.5030 ####[facility] [address] [place], [address] Platelet mean volume (Bld) [Entitic vol] 11.0 fL Normal 6.2-12.0 [facility] Comment on above: Performed By: #### L 3100.5040, L100.0100, L500.4050, L400.7600, L3100.5055, L3100.5030 ####[facility] [address] [place], [address] Platelets (Bld) [#/Vol] 258 10*3/uL Normal 150-450 [facility] Comment on above: Performed By: #### L 3100.5040, L100.0100, L500.4050, L400.7600, L3100.5055, L3100.5030 ####[facility] [address] [place], [address] RBC (Bld) [#/Vol] 4.24 10*6/uL Normal 4.2-5.4 [facility] Comment on above: Performed By: #### L 3100.5040, L100.0100, L500.4050, L400.7600, L3100.5055, L3100.5030 ####[facility] [address] [place], [address] RDW SD 38.7 fl Normal 35.1-43.9 [facility] Comment on above: Performed By: #### L 3100.5040, L100.0100, L500.4050, L400.7600, L3100.5055, L3100.5030 ####[facility] [address] [place], [address] WBC (Bld) [#/Vol] 6.1 10*3/uL Normal 4.4-11.0 [facility] Comment on above: Performed By: #### L 3100.5040, L100.0100, L500.4050, L400.7600, L3100.5055, L3100.5030 ####[facility] [address] [place], [address] Carbon dioxide, total [Moles /volume] in Central venous bloodOrdered By: Arnaud Borja on 12-25-2024 CO2 [Moles/Vol] 25.7 mmol/L 21.0-32.0 [facility] Chloride assayOrdered By: Jluis Borja on 12-25-2024 Chloride [Moles/Vol] 105 mmol/L 98-108 [facility] Comprehensive Metabolic Prof ilon 12-25-2024 Albumin [Mass/Vol] 4.6 g/dL Normal 3.5-5.0 [facility] Comment on above: Performed By: #### L 3100.5040, L100.0100, L500.4050, L400.7600, L3100.5055, L3100.5030 ####[facility] [address] [place], [address] Albumin/Globulin [Mass ratio] 1.5 {ratio} Normal 0.9-2.4 [facility] Comment on above: Performed By: #### L 3100.5040, L100.0100, L500.4050, L400.7600, L3100.5055, L3100.5030 ####[facility] [address] [place], [address] ALK PHOS 98 U/L Normal 35-104 [facility] Comment on above: Performed By: #### L 3100.5040, L100.0100, L500.4050, L400.7600, L3100.5055, L3100.5030 ####[facility] [address] [place], [address] ALT [Catalytic activity/Vol] 24 U/L Normal <=34 [facility] Comment on above: Performed By: #### L 3100.5040, L100.0100, L500.4050, L400.7600, L3100.5055, L3100.5030 ####[facility] [address] [place], [address] AST [Catalytic activity/Vol] 27 U/L Normal <=31 [facility] Comment on above: Performed By: #### L 3100.5040, L100.0100, L500.4050, L400.7600, L3100.5055, L3100.5030 ####[facility] [address] [place], [address] Bilirubin [Mass/Vol] 0.28 mg/dL Normal 0.00-1.30 [facility] Comment on above: Performed By: #### L 3100.5040, L100.0100, L500.4050, L400.7600, L3100.5055, L3100.5030 ####[facility] [address] [place], [address] BUN/CRE 16.4 RATIO Normal 10-20 [facility] Comment on above: Performed By: #### L 3100.5040, L100.0100, L500.4050, L400.7600, L3100.5055, L3100.5030 ####[facility] [address] [place], [address] Calcium [Mass/Vol] 9.7 mg/dL Normal 7.6-11.0 [facility] Comment on above: Performed By: #### L 3100.5040, L100.0100, L500.4050, L400.7600, L3100.5055, L3100.5030 ####[facility] [address] [place], [address] Chloride [Moles/Vol] 105 mmol/L Normal 98-108 [facility] Comment on above: Performed By: #### L 3100.5040, L100.0100, L500.4050, L400.7600, L3100.5055, L3100.5030 ####[facility] [address] [place], [address] CO2 [Moles/Vol] 25.7 mmol/L Normal 21.0-32.0 [facility] Comment on above: Performed By: #### L 3100.5040, L100.0100, L500.4050, L400.7600, L3100.5055, L3100.5030 ####[facility] [address] [place], [address] Creatinine [Mass/Vol] 0.84 mg/dL Normal 0.70-1.20 [facility] Comment on above: Performed By: #### L 3100.5040, L100.0100, L500.4050, L400.7600, L3100.5055, L3100.5030 ####[facility] [address] [place], [place], [id number] GAP 11 Normal 5-15 [facility] Comment on above: Performed By: #### L 3100.5040, L100.0100, L500.4050, L400.7600, L3100.5055, L3100.5030 ####[facility] [address] [place], [address] GFR/1.73 sq M.predicted among non-blacks MDRD (S/P/Bld) [Vol rate/Area] 88 mL/min/{1.73_m2} Normal >60 [facility] Comment on above: Result Comment: mL/m in/1.73m2 CKD-EPI Creatinine Equation (2020) Performed By: #### L 3100.5040, L100.0100, L500.4050, L400.7600, L3100.5055, L3100.5030 ####[facility] [address] [place], [address] Globulin (S) [Mass/Vol] 3.0 g/dL Normal 2.2-4.2 [facility] Comment on above: Performed By: #### L 3100.5040, L100.0100, L500.4050, L400.7600, L3100.5055, L3100.5030 ####[facility] [address] [place], [address] Glucose [Mass/Vol] 95 mg/dL Normal 70-99 [facility] Comment on above: Performed By: #### L 3100.5040, L100.0100, L500.4050, L400.7600, L3100.5055, L3100.5030 ####[facility] [address] [place], [address] Potassium [Moles/Vol] 4.0 mmol/L Normal 3.3-5.1 [facility] Comment on above: Performed By: #### L 3100.5040, L100.0100, L500.4050, L400.7600, L3100.5055, L3100.5030 ####[facility] [address] [place], [address] Sodium [Moles/Vol] 141 mmol/L Normal 133-145 [facility] Comment on above: Performed By: #### L 3100.5040, L100.0100, L500.4050, L400.7600, L3100.5055, L3100.5030 ####[facility] [address] [place], [address] T PROT 7.5 g/dL Normal 5.9-8.4 [facility] Comment on above: Performed By: #### L 3100.5040, L100.0100, L500.4050, L400.7600, L3100.5055, L3100.5030 ####[facility] [address] [place], [address] Urea nitrogen [Mass/Vol] 14 mg/dL Normal 4-19 [facility] Comment on above: Performed By: #### L 3100.5040, L100.0100, L500.4050, L400.7600, L3100.5055, L3100.5030 ####[facility] [address] [place], [address] Eosinophil percentageOrdered By: Arnaud Borja on 12-25-2024 Eosinophils/100 WBC (Bld) 3.5 % 0-5 [facility] Erythrocyte distribution wid th ratioOrdered By: [facility] Huong on 12-25-2024 Erythrocyte distribution width (RBC) [Ratio] 12.4 % 11.6-14.6 [facility] Erythrocyte distribution wid th standard deviationOrdered By: [facility] Huong on 12-25-2024 Erythrocyte distribution width (RBC) [Ratio] 38.7 fl 35.1-43.9 [facility] FSH and LHon 12-25-2024 FSH 89.2 mIU/mL Normal [facility] Comment on above: Result Comment: FEMA LE: Follicular: 1.4 - 18.1 mIU/mL Midcycle: 3.4 - 33.4 mIU/mL Luteal: 1.5 - 9.1 mIU/mL Post Menopause: 23.0 - 116.3 mIU/mL MALE: 1.4 - 18.1 mIU/mL Performed By: #### L 3100.5040, L100.0100, L500.4050, L400.7600, L3100.5055, L3100.5030 ####[facility] [address] [place], [address] LH 60.9 mIU/mL Normal [facility] Comment on above: Result Comment: FEMA LE: Follicular: 1.9-12.5 mIU/mL Midcycle: 8.7-76.3 mIU/mL Luteal: 0.5-16.9 mIU/mL Post Menopause: 15.9-54.0 mIU/mL MALE: 20-70 Years: 1.5-9.3 mIU/mL >70 Years: 3.1-34.6 mIU/mL Performed By: #### L 3100.5040, L100.0100, L500.4050, L400.7600, L3100.5055, L3100.5030 ####[facility] [address] [place], [place], [id number] Glomerular filtration rate ( GFR) estimation/1.73 sq m using serum, plasma, or whole bOrdered By: Arnaud Borja on 12-25-2024 GFR/1.73 sq M.predicted among non-blacks MDRD (S/P/Bld) [Vol rate/Area] 88 mL/min/{1.73_m2} >60 [facility] Comment on above: mL/min/1.73m2 CKD-EP I Creatinine Equation (2020) Hematocrit Auto (Bld) [Volum e fraction]Ordered By: Arnaud Borja on 12-25-2024 Hematocrit (Bld) [Volume fraction] 36.2 % Low 37-47 [facility] Hemoglobin measurementOrdere d By: Arnaud Borja on 12-25-2024 Hemoglobin (Bld) [Mass/Vol] 12.3 g/dL 12.0-15.0 [facility] Immature granulocytes/100 WB C Auto (Bld)Ordered By: Arnaud Borja on 12-25-2024 Immature granulocytes/100 WBC (Bld) 0.200 % 0.0-0.9 [facility] Comment on above: IG% - Immature Granu locytes (promyelocytes, myelocytes and metamyelocytes) > 1% indicates that a LEFT SHIFT is Present. LH ser/plasOrdered By: Pastor Borja on 12-25-2024 Lutropin Qn 60.9 m[IU]/mL [facility] Comment on above: FEMALE:Follicular: 1 .9-12.5 mIU/mLMidcycle: 8.7-76.3 mIU/mLLuteal: 0.5-16.9 mIU/mLPost Menopause: 15.9-54.0 mIU/mLMALE:20-70 Years: 1.5-9.3 mIU/mL>70 Years: 3.1-34.6 mIU/mL Laboratory - Chemistry and C hemistry - challengeOrdered By: Arnaud Borja on 12-25-2024 AST [Catalytic activity/Vol] 27 U/L <32 [facility] MCV (mean corpuscular volume ) determinationOrdered By: Arnaud Borja on 12-25-2024 MCV (RBC) [Entitic vol] 85.4 fL 81-99 [facility] Mean corpuscular hemoglobin (MCH) determinationOrdered By: Arnaud Borja on 12-25-2024 MCH (RBC) [Entitic mass] 29.0 pg 27.0-32.0 [facility] Mean corpuscular hemoglobin concentration (MCHC) determinationOrdered By: Arnaud Borja on 12-25-2024 MCHC (RBC) [Mass/Vol] 34.0 g/dL 32-36 [facility] Mean platelet volume determi nationOrdered By: Arnaud Borja on 12-25-2024 Platelet mean volume (Bld) [Entitic vol] 11.0 fL 6.2-12.0 [facility] Monocyte percentageOrdered B y: Arnaud Borja on 12-25-2024 Monocytes/100 WBC (Bld) 7.9 % 0-10 [facility] Neutrophil percentageOrdered By: Arnaud Borja on 12-25-2024 Neutrophils/100 WBC (Bld) 48.4 % 47-70 [facility] Nucleated red blood cell per centageOrdered By: Arnaud Borja on 12-25-2024 Nucleated RBC/100 WBC (Bld) [Ratio] 0 % 0-5 [facility] Oncology Visit Reporton 11-29 Oncology Visit Report [facility] [address] [place] [address] OFFICE VISIT Date of Service: 12/25/24 1555 MR#: [id number] Acct: [id number] Name: HOWARD HALL Rep #: [id number] : 1980 From: Arnaud Borja MD Age/Sex: 44/F Location: [facility] Status: Signed with Addenda ADDENDUM by [...] in 100% of tumor cells PROGESTERONE RECEPTOR (AZ): Positive, strong immunoreactivity in 100% of tumor [...] dense b (more content not included)... Normal [facility] Platelet countOrdered By: Jluis Borja on 12-25-2024 Platelets (Bld) [#/Vol] 258 10*3/uL 150-450 [facility] Potassium measurement (mass/ volume)Ordered By: Arnaud Borja on 12-25-2024 Potassium (Unsp spec) [Mass/Vol] 4.0 mmol/L 3.3-5.1 [facility] ,Urineon 12-25-2024 Beta HCG ( test) Ql (U) Negative Normal [facility] Comment on above: Result Comment: [phone] Very dilute urine specimens, as indicated by a low specific gravity, may not contain sales representative church furniture levels of hCG. If is still suspected, a first morning urine specimen should be collected 48 hours later and tested. Performed By: #### L 3100.5040, L100.0100, L500.4050, L400.7600, L3100.5055, L3100.5030 #### [facility] [address] [place], [address] RBC Auto (Bld) [#/Vol]Ordere d By: Arnaud Borja on 12-25-2024 RBC (Bld) [#/Vol] 4.24 10*6/uL 4.2-5.4 [facility] Serum creatinine measurement (mass/volume)Ordered By: Arnaud Borja on 12-25-2024 Creatinine [Mass/Vol] 0.84 mg/dL 0.70-1.20 [facility] Serum globulin measurementOr dered By: Arnaud Borja on 12-25-2024 Globulin (S) [Mass/Vol] 3.0 g/dL 2.2-4.2 [facility] Serum glucose measurement (m ass/volume)Ordered By: Arnaud Borja on 12-25-2024 Glucose [Mass/Vol] 95 mg/dL 70-99 [facility] Serum or plasma alanine rainey otransferase (ALT) measurementOrdered By: Arnaud Borja on 12-25-2024 ALT [Catalytic activity/Vol] 24 U/L <35 [facility] Serum or plasma albumin ceasar urement (mass/volume)Ordered By: Arnaud Borja on 12-25-2024 Albumin [Mass/Vol] 4.6 g/dL 3.5-5.0 [facility] Serum or plasma albumin/glob ulin mass ratioOrdered By: Arnaud Borja on 12-25-2024 Albumin/Globulin [Mass ratio] 1.5 {ratio} 0.9-2.4 [facility] Serum or plasma alkaline dasia sphatase measurementOrdered By: Arnaud Borja on 12-25-2024 ALP [Catalytic activity/Vol] 98 U/L 35-104 [facility] Serum or plasma calcium ceasar urement (mass/volume)Ordered By: Arnaud Borja on 12-25-2024 Calcium [Mass/Vol] 9.7 mg/dL 7.6-11.0 [facility] Serum or plasma urea nitroge n measurement (mass/volume)Ordered By: Arnaud Borja on 12-25-2024 Urea nitrogen [Mass/Vol] 14 mg/dL 4-19 [facility] Sodium levelOrdered By: Meir Borja on 12-25-2024 Sodium [Moles/Vol] 141 mmol/L 133-145 [facility] Total proteinOrdered By: Charanjit Borja on 12-25-2024 Protein [Mass/Vol] 7.5 g/dL 5.9-8.4 [facility] Urine testOrdered By: Arnaud Borja on 12-25-2024 HCG ( test) Ql (U) Negative [facility] Comment on above: [id number] dilute ur ine specimens, as indicated by a low specificgravity, may not contain sales representative church furniture levels of hCG. If is still suspected, a first morning urinespecimen should be collected 48 hours later and tested. White blood cell (WBC) count Ordered By: Arnaud Borja on 12-25-2024 WBC (Bld) [#/Vol] 6.1 10*3/uL 4.4-11.0 [facility] Surgical pathology reportOrd ered By: Rain Bruce on 12-11-2024 Surgical pathology study [facility] Immunohistochemical Stainson 12-10-2024 Immunohistochemical Stains Patient Age/Sex Location Account Attending Physician HOWARD HALL 43/F LABSPEC [id number] Dr. Feliciano Castellon MD Specimen: [id number] Received: 12/10/24 Status: ARABELLAChastity Ángel Num: [id number] Spec Type: BREAST BX Subm Dr: Dr. [...] in 100% of tumor cells PROGESTERONE RECEPTOR (AZ): Positive, strong immunoreactivity in 100% of tumor cells HER2/DIEGO IHC: Positive, (Score 3+) KI67 IHC: 40% B. Left axilla, lymph node, biopsy: * Metastatic mammary carcinoma (See note) Note: The pancytokeratin stain is positive supporting the diagnosis. MICROSCOPIC DESCRIPTION Slides are reviewed. All controls show appropriate reactivity. Estrogen receptor (ER) and progesterone receptor (AZ) are evaluated by manual quantitative immunohistochemistry on formalin-fixed (for >6 hours and <72 hours if possible), paraffin-embedded tissue, using clone SP1 (Zenda) for ER, clone AZ 1E2 (Zenda) for AZ, and polymer detection system on a Zenda auto-stainer. For both ER and AZ, the percentage of positive tumor cell nuclei is determined; <1% is considered negative, and =1% positive. For both ER and AZ, the overall intensity of staining in the tumor is categorized as weak, moderate, or strong. HER2 protein expression is evaluated by manual quantitative immunohistochemistry on formalin-fixed (for >6 hours and <72 hours if possible), paraffin-embedded tissue, using FDA approved clone [id number] (rabbit monoclonal, Zenda) on a Zenda autostainer, and scored according to ASCO/CAP criteria. Membrane staining of tumor cells is evaluated and graded as follows, as readily appreciated using a low power objective. 0 (negative): no staining, or Patient Age/Sex Location Account Attending Physician HOWARD HALL 43/F LABSPEC [id number] Dr. Feliciano Castellon MD membrane staining that [...] developed and their performance characteristics determined by [facility]. They may not have [...] of fibro (more content not included)... Normal [facility] Comment on above: Performed By: #### P [facility] ####[facility] [address] [place], [address] Surgery Visit Reporton 12-10 Surgery Visit Report [facility] [address] [place] [address] OFFICE VISIT Date of Service: 12/10/24 MR#: [id number] Acct: [id number] Name: HOWARD HALL Rep #: [id number] : 1980 Provider: Dr. Feliciano miels MD Age/Sex: 43/F Location: [facility] Status: Signed Intake Intake Visit Reasons: BREAST [...] well. Alert Kalani Yes Biopsy Breast Biopsy: 83271 US Guidance Lymphnode Biopsy: 72949 Lymphnode Procedure Time Out Time Out Informed [...] I get them. Feliciano Castellon MD Pager: [facility] [address] [place] [address], [address] [place] [address] Office: Orders: Orders Biopsy 12/10/24 N63.22 - Unspecified lump in the left breast, upper inner quadrant Coding Level of Care Code Attention Vest Baster Diagnoses Mass of upper inner quadrant of left napoleon (more content not included)... Normal [facility] Surgery Visit Reporton 12-09 Surgery Visit Report [facility] [address] [place] [address]. [address] [place] [address] OFFICE VISIT Date of Service: 12/09/24 MR#: [id number] Acct: [id number] Name: HOWARD HALL Falguni Rep #: [id number] : 1980 Provider: Dr. Feliciano miles MD Age/Sex: 43/F Location: [facility] Status: Signed Intake Vital Signs 08/15/17 [...] No Known Allergies Allergy (Verified 12/09/24 14:02) [facility] Medical History (Updated 12/09/24 @ 14:09 by [...] for further biopsy. Feliciano Castellon MD Pager: [facility] [address] [place] [address], [address] [place] [phone] Office: Medications: Discontinued ibuprofen (more content not included)... Normal [facility] Breast imaging reportOrdered By: Elsy Sarah on 12-05-2024 Study report [facility] [address] [place], [place] [id number] DIAG MAMM W/CAD, BILAT MR#: [id number] Acct: [id number] Name: HOWARD HALL Rep #: [id number] : 1980 F 43 From: Kamilah Sarah MD PCP: Dr. David Ghotra, Status: [facility] CLI Study:DIAG MAMM W/CAD, BILAT Date of Exam: 12/04/24 Exam# [id number] Ordering Dr: David Ghotra DO EXAM: BREAST [...] to the patient. Reading Location: [facility] CC: Dr. David Ghotra, ~ [employer] Consultant: Signed [facility] Study report [facility] [address] [place] [address] Bilat Brst Mika Stand Alone MR#: [id number] Acct: [id number] Name: HOWARD HALL Rep #: [id number] : 1980 F 43 From: Kamilah Sarah MD PCP: Dr. David Ghotra DO Status: REG CLI Study:Bilat Brst Mika Stand Alone Date of Exa m: 12/04/24 Exam# [id number] Ordering Dr: David Ghotra DO EXAM: BREAST [...] be mailed to the patient. Reading Location: [id number] CC: Dr. David Ghotra, DO ~ [employer] Consultant: Signed [facility] Bilat Brst Mika Stand Aloneo n 12-04-2024 [facility] [address] [place], [place] [address] Bilat Brst Mika Stand Alone MR#: [id number] Acct: [id number] Name: HOWARD HALL Rep #: [id number] : 1980 F 43 From: Elsy Sarah MD PCP: Dr. David Ghotra DO Status: REG CLI Study: Bilat Brst Mika Stand Alone Date of Exam: 02/21 Exam# [id number] Ordering Dr: David Ghotra DO EXAM: BREAST [...] be mailed to the patient. Reading Location: [id number] CC: Dr. David Ghotra DO [employer] Consultant: Signed Normal [facility] Breast Limited Unilateralon 12-04-2024 Breast Limited Unilateral [facility] [address] [place] [address] Breast Limited Unilateral MR#: [id number] Acct: [id number] Name: VICKEYHOWARD WILLIAM Falguni Rep #: [id number] : 1980 F 43 From: Elsy Sarah MD PCP: Dr. David Ghotra, DO Status: REG CLI Study: Breast Limited Unilateral Date of Exam: Exam# [id number] Ordering Dr: David Ghotra DO EXAM: BREAST [...] to the patient. Reading Location: [facility] CC: Dr. David Ghotra DO [employer] Consultant: Signed Normal [facility] DIAG MAMM W/CAD, BILATon DIAG MAMM W/CAD, BILAT [facility] [address] [place], [place] [address] DIAG MAMM W/CAD, BILAT MR#: [id number] Acct: [id number] Name: VICKEYHOWARD WILLIAM Falguni Rep #: [id number] : 1980 F 43 From: Elsy Sarah MD PCP: Dr. David Ghotra DO Status: REG CLI Study: DIAG MAMM W/CAD, BILAT Date of Exam: 12/04/24 Exam# [id number] Ordering Dr: David Ghotra DO EXAM: BREAST [...] be mailed to the patient. Reading Location: [id number] CC: Dr. David Ghotra, [employer] Consultant: Signed Normal [facility] Quantiferon TB-Gold+on 11-16 QFT MITOGEN DANIEL > 10.00 Normal . [facility] Comment on above: Performed By: #### L 500.2500, L501.5200, L100.0100 #### [facility] [address] [place], [address] QFT NIL VALUE 0.05 IU/mL Normal . [facility] Comment on above: Performed By: #### L 500.2500, L501.5200, L100.0100 #### [facility] [address] [place], [address] QFT TB GOLD+ Comment Normal . [facility] Comment on above: Result Comment: [...] By: #### L 500.2500, L501.5200, L100.0100 #### [facility] [address] [place], [address] QFT TB POS CRIT Negative Normal Negative [facility] Comment on above: Result Comment: [...] interferon gamma. Chemiluminescence immunoassay methodology Performed at: [facility] [id number] Layer Out: Mendez Parmar PhD, Phone: [phone] Performed By: #### L 500.2500, L501.5200, L100.0100 #### [facility] [address] [place], [address] QFT TB1+ AG DANIEL 0.10 IU/mL Normal . [facility] Comment on above: Performed By: #### L 500.2500, L501.5200, L100.0100 #### [facility] [address] [place], [address] QFT TB2+ AG DANIEL 0.10 IU/mL Normal . [facility] Comment on above: Performed By: #### L 500.2500, L501.5200, L100.0100 #### [facility] [address] [place], [address] Absolute lymphocyte countOrd ered By: David Ghotra on 11-14-2024 Lymphocytes Auto (Unsp spec) [#/Vol] 1.72 10*3/uL 0.83-4.51 [facility] Absolute neutrophil countOrd ered By: David Ghotra on 11-14-2024 Neutrophils (Bld) [#/Vol] 2.6 10*3/uL 2.0-7.7 [facility] Anion gap in Serum or Plasma Ordered By: David Ghotra on 04-17-2025 Anion gap [Moles/Vol] 13 mmol/L 5-15 [facility] Automated lymphocyte count a s percentage of total leukocytesOrdered By: David Ghotra on 11-14-2024 Lymphocytes/100 WBC Auto (Unsp spec) 35.2 % - [facility] BUN/creatinine ratioOrdered By: David Ghotra on 11-14-2024 Urea nitrogen/Creatinine [Mass ratio] 14.9 mg/mg 10- [facility] Basophil percentageOrdered B y: David Ghotra on 11-14-2024 Basophils/100 WBC (Bld) 0.6 % 0-1 [facility] Bilirubin, totalOrdered By: David RiceAlec on 11-14-2024 Bilirubin [Mass/Vol] 0.27 mg/dL 0.00-1.30 [facility] CBC W/Diff, Automatedon 10-29 Absolute Lymph 1.72 X10 3/uL Normal 0.83-4.51 [facility] Comment on above: Performed By: #### L 500.2500, L501.5200, L100.0100 #### [facility] [address] [place], [address] Absolute Neut 2.6 X10 3/uL Normal 2.0-7.7 [facility] Comment on above: Performed By: #### L 500.2500, L501.5200, L100.0100 #### [facility] [address] [place], [address] Basophils/100 WBC (Bld) 0.6 % Normal 0-1 [facility] Comment on above: Performed By: #### L 500.2500, L501.5200, L100.0100 #### [facility] [address] [place], [address] Eosinophils/100 WBC (Bld) 3.3 % Normal 0-5 [facility] Comment on above: Performed By: #### L 500.2500, L501.5200, L100.0100 #### [facility] [address] [place], [address] Erythrocyte distribution width (RBC) [Ratio] 12.0 % Normal 11.6-14.6 [facility] Comment on above: Performed By: #### L 500.2500, L501.5200, L100.0100 #### [facility] [address] [place], [address] Hematocrit (Bld) [Volume fraction] 38.0 % Normal 37-47 [facility] Comment on above: Performed By: #### L 500.2500, L501.5200, L100.0100 #### [facility] [address] [place], [address] Hemoglobin (Bld) [Mass/Vol] 12.8 g/dL Normal 12.0-15.0 [facility] Comment on above: Performed By: #### L 500.2500, L501.5200, L100.0100 #### [facility] [address] [place], [address] IG% 0.200 Normal 0.0-0.9 [facility] Comment on above: Result Comment: IG% - Immature Granulocytes (promyelocytes, myelocytes and metamyelocytes) > 1% indicates that a LEFT SHIFT is Present. Performed By: #### L 500.2500, L501.5200, L100.0100 #### [facility] [address] [place], [address] Lymphocytes/100 WBC (Bld) 35.2 % Normal 19-41 [facility] Comment on above: Performed By: #### L 500.2500, L501.5200, L100.0100 #### [facility] [address] [place], [address] MCH (RBC) [Entitic mass] 28.9 pg Normal 27.0-32.0 [facility] Comment on above: Performed By: #### L 500.2500, L501.5200, L100.0100 #### [facility] [address] [place], [address] MCHC (RBC) [Mass/Vol] 33.7 g/dL Normal 32-36 [facility] Comment on above: Performed By: #### L 500.2500, L501.5200, L100.0100 #### [facility] [address] [place], [address] MCV (RBC) [Entitic vol] 85.8 fL Normal 81-99 [facility] Comment on above: Performed By: #### L 500.2500, L501.5200, L100.0100 #### [facility] [address] [place], [address] Monocytes/100 WBC (Bld) 7.8 % Normal 0-10 [facility] Comment on above: Performed By: #### L 500.2500, L501.5200, L100.0100 #### [facility] [address] [place], [address] Neutrophils/100 WBC (Bld) 52.9 % Normal 47-70 [facility] Comment on above: Performed By: #### L 500.2500, L501.5200, L100.0100 #### [facility] [address] [place], [address] Nucleated RBC (Bld) [#/Vol] 0 10*3/uL Normal 0-5 [facility] Comment on above: Performed By: #### L 500.2500, L501.5200, L100.0100 #### [facility] [address] [place], [address] Platelet mean volume (Bld) [Entitic vol] 11.1 fL Normal 6.2-12.0 [facility] Comment on above: Performed By: #### L 500.2500, L501.5200, L100.0100 #### [facility] [address] [place], [address] Platelets (Bld) [#/Vol] 259 10*3/uL Normal 150-450 [facility] Comment on above: Performed By: #### L 500.2500, L501.5200, L100.0100 #### [facility] [address] [place], [address] RBC (Bld) [#/Vol] 4.43 10*6/uL Normal 4.2-5.4 [facility] Comment on above: Performed By: #### L 500.2500, L501.5200, L100.0100 #### [facility] [address] [place], [address] RDW SD 37.8 fl Normal 35.1-43.9 [facility] Comment on above: Performed By: #### L 500.2500, L501.5200, L100.0100 #### [facility] [address] [place], [address] WBC (Bld) [#/Vol] 4.9 10*3/uL Normal 4.4-11.0 [facility] Comment on above: Performed By: #### L 500.2500, L501.5200, L100.0100 #### [facility] [address] [place], [address] Carbon dioxide, total [Moles /volume] in Central venous bloodOrdered By: David Ghotra on 11-14-2024 CO2 [Moles/Vol] 24.8 mmol/L 21.0-32.0 [facility] Chloride assayOrdered By: Jluis Ghotra on 11-14-2024 Chloride [Moles/Vol] 103 mmol/L 98-108 [facility] Comprehensive Metabolic Prof ilon 11-14-2024 Albumin [Mass/Vol] 4.5 g/dL Normal 3.5-5.0 [facility] Comment on above: Performed By: #### L 500.2500, L501.5200, L100.0100 #### [facility] [address] [place], [address] Albumin/Globulin [Mass ratio] 1.5 {ratio} Normal 0.9-2.4 [facility] Comment on above: Performed By: #### L 500.2500, L501.5200, L100.0100 #### [facility] [address] [place], [address] ALK PHOS 96 U/L Normal 35-104 [facility] Comment on above: Performed By: #### L 500.2500, L501.5200, L100.0100 #### [facility] [address] [place], [address] ALT [Catalytic activity/Vol] 26 U/L Normal <=34 [facility] Comment on above: Performed By: #### L 500.2500, L501.5200, L100.0100 #### [facility] [address] [place], [address] AST [Catalytic activity/Vol] 30 U/L Normal <=31 [facility] Comment on above: Performed By: #### L 500.2500, L501.5200, L100.0100 #### [facility] [address] [place], [address] Bilirubin [Mass/Vol] 0.27 mg/dL Normal 0.00-1.30 [facility] Comment on above: Performed By: #### L 500.2500, L501.5200, L100.0100 #### [facility] [address] [place], [address] BUN/CRE 14.9 RATIO Normal 10-20 [facility] Comment on above: Performed By: #### L 500.2500, L501.5200, L100.0100 #### [facility] [address] [place], [address] Calcium [Mass/Vol] 10.0 mg/dL Normal 7.6-11.0 [facility] Comment on above: Performed By: #### L 500.2500, L501.5200, L100.0100 #### [facility] [address] [place], [address] Chloride [Moles/Vol] 103 mmol/L Normal 98-108 [facility] Comment on above: Performed By: #### L 500.2500, L501.5200, L100.0100 #### [facility] [address] [place], [address] CO2 [Moles/Vol] 24.8 mmol/L Normal 21.0-32.0 [facility] Comment on above: Performed By: #### L 500.2500, L501.5200, L100.0100 #### [facility] [address] [place], [address] Creatinine [Mass/Vol] 0.89 mg/dL Normal 0.70-1.20 [facility] Comment on above: Performed By: #### L 500.2500, L501.5200, L100.0100 #### [facility] [address] [place], [address] GAP 13 Normal 5-15 [facility] Comment on above: Performed By: #### L 500.2500, L501.5200, L100.0100 #### [facility] [address] [place], [address] GFR/1.73 sq M.predicted among non-blacks MDRD (S/P/Bld) [Vol rate/Area] 82 mL/min/{1.73_m2} Normal >60 [facility] Comment on above: Result Comment: mL/m in/1.73m2 CKD-EPI Creatinine Equation (2020) Performed By: #### L 500.2500, L501.5200, L100.0100 #### [facility] [address] [place], [address] Globulin (S) [Mass/Vol] 3.0 g/dL Normal 2.2-4.2 [facility] Comment on above: Performed By: #### L 500.2500, L501.5200, L100.0100 #### [facility] [address] [place], [address] Glucose [Mass/Vol] 110 mg/dL High 70-99 [facility] Comment on above: Performed By: #### L 500.2500, L501.5200, L100.0100 #### [facility] [address] [place], [address] Potassium [Moles/Vol] 3.7 mmol/L Normal 3.3-5.1 [facility] Comment on above: Performed By: #### L 500.2500, L501.5200, L100.0100 #### [facility] [address] [place], [address] Sodium [Moles/Vol] 141 mmol/L Normal 133-145 [facility] Comment on above: Performed By: #### L 500.2500, L501.5200, L100.0100 #### [facility] [address] [place], [address] T PROT 7.4 g/dL Normal 5.9-8.4 [facility] Comment on above: Performed By: #### L 500.2500, L501.5200, L100.0100 #### [facility] [address] [place], [address] Urea nitrogen [Mass/Vol] 13 mg/dL Normal 4-19 [facility] Comment on above: Performed By: #### L 500.2500, L501.5200, L100.0100 #### [facility] [address] [place], [address] Eosinophil percentageOrdered By: David Ghotra on 11-14-2024 Eosinophils/100 WBC (Bld) 3.3 % 0-5 [facility] Erythrocyte distribution wid th ratioOrdered By: David Ghotra on 11-14-2024 Erythrocyte distribution width (RBC) [Ratio] 12.0 % 11.6-14.6 [facility] Erythrocyte distribution wid th standard deviationOrdered By: David Ghotra on 11-14-2024 Erythrocyte distribution width (RBC) [Ratio] 37.8 fl 35.1-43.9 [facility] Glomerular filtration rate ( GFR) estimation/1.73 sq m using serum, plasma, or whole bOrdered By: David Ghotra on 11-14-2024 GFR/1.73 sq M.predicted among non-blacks MDRD (S/P/Bld) [Vol rate/Area] 82 mL/min/{1.73_m2} >60 [facility] Comment on above: mL/min/1.73m2 CKD-EP I Creatinine Equation (2020) Hematocrit Auto (Bld) [Volum e fraction]Ordered By: David Ghotra on 11-14-2024 Hematocrit (Bld) [Volume fraction] 38.0 % 37-47 [facility] Hemoglobin measurementOrdere d By: David Ghotra on 11-14-2024 Hemoglobin (Bld) [Mass/Vol] 12.8 g/dL 12.0-15.0 [facility] Immature granulocytes/100 WB C Auto (Bld)Ordered By: David Ghotra on 11-14-2024 Immature granulocytes/100 WBC (Bld) 0.200 % 0.0-0.9 [facility] Comment on above: IG% - Immature Granu locytes (promyelocytes, myelocytes and metamyelocytes) > 1% indicates that a LEFT SHIFT is Present. Laboratory - Chemistry and C hemistry - challengeOrdered By: David Ghotra on 11-14-2024 AST [Catalytic activity/Vol] 30 U/L <32 [facility] MCV (mean corpuscular volume ) determinationOrdered By: David Ghotra on 11-14-2024 MCV (RBC) [Entitic vol] 85.8 fL 81-99 [facility] Mean corpuscular hemoglobin (MCH) determinationOrdered By: David Ghotra on 11-14-2024 MCH (RBC) [Entitic mass] 28.9 pg 27.0-32.0 [facility] Mean corpuscular hemoglobin concentration (MCHC) determinationOrdered By: David Ghotra on 11-14-2024 MCHC (RBC) [Mass/Vol] 33.7 g/dL 32-36 [facility] Mean platelet volume determi nationOrdered By: David Ghotra on 11-14-2024 Platelet mean volume (Bld) [Entitic vol] 11.1 fL 6.2-12.0 [facility] Monocyte percentageOrdered B y: David Ghotra on 11-14-2024 Monocytes/100 WBC (Bld) 7.8 % 0-10 [facility] Neutrophil percentageOrdered By: David Ghotra on 11-14-2024 Neutrophils/100 WBC (Bld) 52.9 % 47-70 [facility] Nucleated red blood cell per centageOrdered By: David Ghotra on 11-14-2024 Nucleated RBC/100 WBC (Bld) [Ratio] 0 % 0-5 [facility] Platelet countOrdered By: Jluis Ghotra on 11-14-2024 Platelets (Bld) [#/Vol] 259 10*3/uL 150-450 [facility] Potassium measurement (mass/ volume)Ordered By: David Ghotra on 11-14-2024 Potassium (Unsp spec) [Mass/Vol] 3.7 mmol/L 3.3-5.1 [facility] Qualitative QuantiFERON-TB g old in tube testOrdered By: David Ghotra on 11-14-2024 M. tuberculosis tuberculin stim IFN-g Ql (Bld) 0.10 IU/mL . [facility] RBC Auto (Bld) [#/Vol]Ordere d By: David Ghotra on 11-14-2024 RBC (Bld) [#/Vol] 4.43 10*6/uL 4.2-5.4 [facility] Serum creatinine measurement (mass/volume)Ordered By: David Ghotra on 11-14-2024 Creatinine [Mass/Vol] 0.89 mg/dL 0.70-1.20 [facility] Serum globulin measurementOr dered By: David Ghotra on 11-14-2024 Globulin (S) [Mass/Vol] 3.0 g/dL 2.2-4.2 [facility] Serum glucose measurement (m ass/volume)Ordered By: David Ghotra on 11-14-2024 Glucose [Mass/Vol] 110 mg/dL High 70-99 [facility] Serum or plasma alanine rainey otransferase (ALT) measurementOrdered By: David Ghotra on 11-14-2024 ALT [Catalytic activity/Vol] 26 U/L <35 [facility] Serum or plasma albumin ceasar urement (mass/volume)Ordered By: David Ghotra on 11-14-2024 Albumin [Mass/Vol] 4.5 g/dL 3.5-5.0 [facility] Serum or plasma albumin/glob ulin mass ratioOrdered By: David Ghotra on 11-14-2024 Albumin/Globulin [Mass ratio] 1.5 {ratio} 0.9-2.4 [facility] Serum or plasma alkaline dasia sphatase measurementOrdered By: David Ghotra on 11-14-2024 ALP [Catalytic activity/Vol] 96 U/L 35-104 [facility] Serum or plasma calcium ceasar urement (mass/volume)Ordered By: David Ghotra on 11-14-2024 Calcium [Mass/Vol] 10.0 mg/dL 7.6-11.0 [facility] Serum or plasma urea nitroge n measurement (mass/volume)Ordered By: David Ghotra on 11-14-2024 Urea nitrogen [Mass/Vol] 13 mg/dL 4-19 [facility] Sodium levelOrdered By: David Ghotra on 11-14-2024 Sodium [Moles/Vol] 141 mmol/L 133-145 [facility] TSH DL <= 0.005 mIU/L QnOrde red By: David Ghotra on 11-14-2024 TSH Qn 1.770 uIU/mL 0.300-4.200 [facility] Thyroid Stim Hormone (TSH)on 11-14-2024 TSH 1.770 uIU/mL Normal 0.300-4.200 [facility] Comment on above: Performed By: #### L 500.2500, L501.5200, L100.0100 #### [facility] [address] [place], [address] Total proteinOrdered By: Ana Ghotra on 11-14-2024 Protein [Mass/Vol] 7.4 g/dL 5.9-8.4 [facility] White blood cell (WBC) count Ordered By: David Ghotra on 11-14-2024 WBC (Bld) [#/Vol] 4.9 10*3/uL 4.4-11.0 [facility] DIAG W MIKA BILon 2021 [facility] DIAG W MIKA AJ * * *Final Report* * * DATE OF EXAM: Apr 20 2022 3:53PM [id number] - [facility] DIAG W MIKA AJ / PROCEDURE REASON: multiple diagnoses * * * * Physician Interpretation * * * * RESULT: #[id number] - [facility] DIAG W MIKA AJ #[id number] - [facility] BREAST [facility] BILATERAL DIGITAL DIAGNOSTIC MAMMOGRAM TOMOSYNTHESIS [...] exams dated: 05/03/2016 mammogram, 11/01/2016 mammogram - [facility], and 04/20/2016 mammogram - [facility]. The tissue of both breasts is [...] exams dated: 05/03/2016 mammogram, 11/01/2016 mammogram - [facility], and 04/20/2016 mammogram - [facility]. Real-time ultrasound of the left breast [...] Health, Family Medicine, and Medical/Surgical Oncology, the [facility] has carefully reviewed the data and [...] their providers when to stop screening mammograms. Aids Social Worker(s): Michelle Barber, [facility]; Anayeli Oliver RT(R)(M), [facility] OVERALL STUDY BIRADS: 1 Negative [employer] Consultant: Arpita Transcribe Date/Time: Apr 20 2022 3:38P Dictated by: BEREKET GANDHI MD This examination was interpreted and the report reviewed and electronically signed by: BEREKET GANDHI MD on Apr 20 2022 4:35PM EST [id number] Normal [facility] US BREAST LTD LTon 04-20 [facility] US BREAST LTD LT * * *Final Report* * * DATE OF EXAM: Apr 20 2022 4:11PM WRU [id number] - [facility] US BREAST LTD LT / PROCEDURE REASON: multiple diagnoses * * * * Physician Interpretation * * * * #[id number] - [facility] AJ #[id number] - [facility] US BREAST LTD LT BILATERAL DIGITAL [...] exams dated: 05/03/2016 mammogram, 11/01/2016 mammogram - [facility], and 04/20/2016 mammogram - [facility]. The tissue of both breasts is [...] exams dated: 05/03/2016 mammogram, 11/01/2016 mammogram - [facility], and 04/20/2016 mammogram - [facility]. Real-time ultrasound of the left breast [...] Health, Family Medicine, and Medical/Surgical Oncology, the [facility] has carefully reviewed the data and [...] their providers when to stop screening mammograms. Aids Social Worker(s): Michelle Barber, [facility]; RT Gwendolyn(R)(M), [facility] OVERALL STUDY BIRADS: 1 Negative [employer] Consultant: Arpita Transcribe Date/Time: Apr 20 2022 3:38P Dictated by : BEREKET GANDHI MD This examination was interpreted and the report reviewed and electronically signed by: BEREKET GANDHI MD on Apr 20 2022 4:35PM EST [id number] Normal [facility] CNOVon 03-01-2022 CNOV Office Visit (OBGYWM ) -- HOWARD HALL ([id number]) 1980 F Date Time Provider Department 03/01/22 [...] No Caffeine use Yes 1-2 cups/day Last [id number] normal Any previous breast surgery No Any [...] 1 tablet by mouth once daily. - Vjobpsyg-Jm-Xfn-Fe-FA ( VITAMIN) tab Take 1 tablet by [...] Diagnosis:Breast pain [N64.4] Order(s):US BREAST LTD LT [[id number]] Order #: [id number] FUTURE YARELY DIAGNOSTIC BILAT [[id number]] Order #: [id number] FUTURE Prescriptions as of 03/01/2022 - citalopram [...] 1 tablet by mouth once daily. - Smmifrtk-Cm-Ptf-Fe-FA ( VITAMIN) tab (Discontinued) Take 1 tablet by mouth. - IRON, FERROUS SULFATE, ORAL (Discontinued) Take 27 mg by mouth once daily. Encounter Status:Closed by FAITH CHAVEZ on 03/01/22 Normal [facility] Vital Signs Date Time Vital Sign Value Performing Clinician Pascalei clau 05-07-2025 09:10-0400 Body height 165.[address] David Ghotra DO Work Phone: [facility] 05-07-2025 09:06-0400 Body mass index (BMI) [Ratio] 23.8 kg/m2 Dr. David Ghotra DO Work Phone: [facility] 05-07-2025 09:06-0400 Body temperature 97.5 [degF] Dr. David Ghotra DO Work Phone: [facility] 05-07-2025 09:06-0400 Body weight 64.[address] David Ghotra DO Work Phone: [facility] 05-07-2025 09:06-0400 Diastolic blood pressure 92 mm[Hg] Dr. David Ghotra DO Work Phone: [facility] 05-07-2025 09:06-0400 Heart rate 88 /min Dr. David Ghotra DO Work Phone: [facility] 05-07-2025 09:06-0400 Respiratory rate 18 /min Dr. David Ghotra DO Work Phone: [facility] 05-07-2025 09:06-0400 SaO2% (BldA) [Mass fraction] 99 % Dr. David Ghotra DO Work Phone: [facility] 05-07-2025 09:06-0400 Systolic blood pressure 146 mm[Hg] Dr. David Ghotra DO Work Phone: [facility] 04-03-2025 15:41-0400 Body temperature 98.5 [degF] Dr. David Ghotra DO Work Phone: [facility] 04-03-2025 15:41-0400 Diastolic blood pressure 94 mm[Hg] Dr. David Ghotra DO Work Phone: [facility] 04-03-2025 15:41-0400 Heart rate 116 /min Dr. David Ghotra DO Work Phone: [facility] 04-03-2025 15:41-0400 Respiratory rate 16 /min Dr. David Ghotra DO Work Phone: [facility] 04-03-2025 15:41-0400 SaO2% (BldA) [Mass fraction] 100 % Dr. David Ghotra DO Work Phone: [facility] 04-03-2025 15:41-0400 Systolic blood pressure 141 mm[Hg] Dr. David Ghotra DO Work Phone: [facility] 04-02-2025 09:52-0400 Body height 165.[address] David Ghotra DO Work Phone: [facility] 04-02-2025 09:52-0400 Body mass index (BMI) [Ratio] 24.7 kg/m2 Dr. David Ghotra DO Work Phone: [facility] 04-02-2025 09:52-0400 Body temperature 98.3 [degF] Dr. David Ghotra DO Work Phone: [facility] 04-02-2025 09:52-0400 Body weight 67.[address] David Ghotra DO Work Phone: [facility] 04-02-2025 09:52-0400 Diastolic blood pressure 103 mm[Hg] Dr. David Ghotar DO Work Phone: [facility] 04-02-2025 09:52-0400 Heart rate 81 /min Dr. David Ghotra DO Work Phone: [facility] 04-02-2025 09:52-0400 Respiratory rate 16 /min Dr. David Ghotra DO Work Phone: [facility] 04-02-2025 09:52-0400 SaO2% (BldA) [Mass fraction] 99 % Dr. David Ghotra DO Work Phone: [facility] 04-02-2025 09:52-0400 Systolic blood pressure 164 mm[Hg] Dr. David Ghotra DO Work Phone: [facility] 03-13-2025 15:17-0400 Body temperature 96.9 [degF] Dr. David Ghotra DO Work Phone: [facility] 03-13-2025 15:17-0400 Diastolic blood pressure 74 mm[Hg] Dr. David Ghotra DO Work Phone: [facility] 03-13-2025 15:17-0400 Heart rate 102 /min Dr. David Ghotra DO Work Phone: [facility] 03-13-2025 15:17-0400 Respiratory rate 16 /min Dr. David Ghotra DO Work Phone: [facility] 03-13-2025 15:17-0400 SaO2% (BldA) [Mass fraction] 99 % Dr. David Ghotra DO Work Phone: [facility] 03-13-2025 15:17-0400 Systolic blood pressure 139 mm[Hg] Dr. David Ghotra DO Work Phone: [facility] 03-12-2025 08:56-0400 Body height 165.[address] David Ghotra DO Work Phone: [facility] 03-12-2025 08:56-0400 Body mass index (BMI) [Ratio] 24.6 kg/m2 Dr. David Ghotra DO Work Phone: [facility] 03-12-2025 08:56-0400 Body temperature 98.5 [degF] Dr. David Ghotra DO Work Phone: [facility] 03-12-2025 08:56-0400 Body weight 67.[address] David Ghotra DO Work Phone: [facility] 03-12-2025 08:56-0400 Diastolic blood pressure 101 mm[Hg] Dr. David Ghotra DO Work Phone: [facility] 03-12-2025 08:56-0400 Heart rate 80 /min Dr. David Ghotra DO Work Phone: [facility] 03-12-2025 08:56-0400 Respiratory rate 18 /min Dr. David Ghotra DO Work Phone: [facility] 03-12-2025 08:56-0400 SaO2% (BldA) [Mass fraction] 99 % Dr. David Ghotra DO Work Phone: [facility] 03-12-2025 08:56-0400 Systolic blood pressure 153 mm[Hg] Dr. David Ghotra DO Work Phone: [facility] 02-20-2025 17:30-0400 Body temperature 97.2 [degF] Dr. David Ghotra DO Work Phone: [facility] 02-20-2025 17:30-0400 Diastolic blood pressure 57 mm[Hg] Dr. David Ghotra DO Work Phone: [facility] 02-20-2025 17:30-0400 Heart rate 72 /min Dr. David Ghotra DO Work Phone: [facility] 02-20-2025 17:30-0400 Respiratory rate 16 /min Dr. David Ghotra DO Work Phone: [facility] 02-20-2025 17:30-0400 SaO2% (BldA) [Mass fraction] 98 % Dr. David Ghotra DO Work Phone: [facility] 02-20-2025 17:30-0400 Systolic blood pressure 107 mm[Hg] Dr. David Ghotra DO Work Phone: [facility] 02-20-2025 15:17-0400 Body height 165.[address] David Ghotra DO Work [facility] [facility] 02-20-2025 15:17-0400 Body mass index (BMI) [Ratio] 23.8 kg/m2 Dr. David Ghotra DO Work Phone: [facility] 02-20-2025 15:17-0400 Body temperature 98.4 [degF] Dr. David Ghotra DO Work Phone: [facility] 02-20-2025 15:17-0400 Body weight 64.[address] David Ghotra DO Work Phone: [facility] 02-20-2025 15:17-0400 Diastolic blood pressure 75 mm[Hg] Dr. David Ghotra DO Work Phone: [facility] 02-20-2025 15:17-0400 Heart rate 99 /min Dr. David Ghotra DO Work Phone: [facility] 02-20-2025 15:17-0400 Respiratory rate 18 /min Dr. David Ghotra DO Work Phone: [facility] 02-20-2025 15:17-0400 SaO2% (BldA) [Mass fraction] 99 % Dr. David Ghotra DO Work Phone: [facility] 02-20-2025 15:17-0400 Systolic blood pressure 108 mm[Hg] Dr. David Ghorta DO Work Phone: [facility] 02-14-2025 15:43-0400 Body temperature 96.3 [degF] Dr. David Ghotra DO Work Phone: [facility] 02-14-2025 15:43-0400 Diastolic blood pressure 98 mm[Hg] Dr. David Ghotra DO Work Phone: [facility] 02-14-2025 15:43-0400 Heart rate 92 /min Dr. David Ghotra DO Work Phone: [facility] 02-14-2025 15:43-0400 Respiratory rate 16 /min Dr. David Ghotra DO Work Phone: [facility] 02-14-2025 15:43-0400 SaO2% (BldA) [Mass fraction] 97 % Dr. David Ghotra DO Work Phone: [facility] 02-14-2025 15:43-0400 Systolic blood pressure 152 mm[Hg] Dr. David Ghotra DO Work Phone: [facility] 02-13-2025 08:35-0400 Body height 165.[address] David Ghotra DO Work Phone: [facility] 02-13-2025 08:35-0400 Body mass index (BMI) [Ratio] 24.8 kg/m2 Dr. David Ghotra DO Work Phone: [facility] 02-13-2025 08:35-0400 Body temperature 98.3 [degF] Dr. David Ghotra DO Work Phone: [facility] 02-13-2025 08:35-0400 Body weight 67.[address] David Ghotra DO Work Phone: [facility] 02-13-2025 08:35-0400 Diastolic blood pressure 86 mm[Hg] Dr. David Ghotra DO Work Phone: [facility] 02-13-2025 08:35-0400 Heart rate 87 /min Dr. David Ghotra DO Work Phone: [facility] 02-13-2025 08:35-0400 Respiratory rate 16 /min Dr. David Ghotra DO Work Phone: [facility] 02-13-2025 08:35-0400 SaO2% (BldA) [Mass fraction] 96 % Dr. David Ghotra DO Work Phone: [facility] 02-13-2025 08:35-0400 Systolic blood pressure 128 mm[Hg] Dr. David Ghotra DO Work Phone: [facility] 02-05-2025 15:25-0400 Body height 165.[address] David Ghotra DO Work Phone: [facility] 02-05-2025 15:25-0400 Body mass index (BMI) [Ratio] 25 kg/m2 Dr. David Ghotra DO Work Phone: [facility] 02-05-2025 15:25-0400 Body weight 68.[address] David Ghotra DO Work Phone: [facility] 02-05-2025 15:25-0400 Diastolic blood pressure 86 mm[Hg] Dr. David Ghotra DO Work Phone: [facility] 02-05-2025 15:25-0400 Heart rate 101 /min Dr. David Ghotra DO Work Phone: [facility] 02-05-2025 15:25-0400 Respiratory rate 15 /min Dr. David Ghotra DO Work Phone: [facility] 02-05-2025 15:25-0400 Systolic blood pressure 149 mm[Hg] Dr. David Ghotra DO Work Phone: [facility] 01-23-2025 11:27-0400 Body height 165.[address] David Ghotra DO Work Phone: [facility] 01-23-2025 11:27-0400 Body mass index (BMI) [Ratio] 25.7 kg/m2 Dr. David Ghotra DO Work Phone: [facility] 01-23-2025 11:27-0400 Body temperature 97.7 [degF] Dr. David Ghotra DO Work Phone: [facility] 01-23-2025 11:27-0400 Body weight 70.[address] David Ghotra DO Work Phone: [facility] 01-23-2025 11:27-0400 Diastolic blood pressure 85 mm[Hg] Dr. David Ghotra DO Work Phone: [facility] 01-23-2025 11:27-0400 Heart rate 91 /min Dr. David Ghotra DO Work Phone: [facility] 01-23-2025 11:27-0400 Respiratory rate 18 /min Dr. David Ghotra DO Work Phone: [facility] 01-23-2025 11:27-0400 SaO2% (BldA) [Mass fraction] 96 % Dr. David Ghotra DO Work Phone: [facility] 01-23-2025 11:27-0400 Systolic blood pressure 146 mm[Hg] Dr. David Ghotra DO Work Phone: [facility] 01-08-2025 15:54-0400 Body temperature 97.3 [degF] Dr. David Ghotra DO Work Phone: [facility] 01-08-2025 15:54-0400 Diastolic blood pressure 90 mm[Hg] Dr. David Ghotra DO Work Phone: [facility] 01-08-2025 15:54-0400 Heart rate 100 /min Dr. David Ghotra DO Work Phone: [facility] 01-08-2025 15:54-0400 Respiratory rate 20 /min Dr. David Ghotra DO Work Phone: [facility] 01-08-2025 15:54-0400 SaO2% (BldA) [Mass fraction] 98 % Dr. David Ghotra DO Work Phone: [facility] 01-08-2025 15:54-0400 Systolic blood pressure 116 mm[Hg] Dr. David Ghotra DO Work Phone: [facility] 01-08-2025 14:02-0400 Body height 165.[address] David Ghotra DO Work Phone: [facility] 01-08-2025 14:02-0400 Body mass index (BMI) [Ratio] 24.2 kg/m2 Dr. David Ghotra DO Work Phone: [facility] 01-08-2025 14:02-0400 Body weight [address] David Ghotra DO Work Phone: [facility] 12-25-2024 16:04-0400 Body height 165.[address] David Ghotra DO Work Phone: [facility] 12-25-2024 16:04-0400 Body mass index (BMI) [Ratio] 24.5 kg/m2 Dr. David Ghotra DO Work Phone: [facility] 12-25-2024 16:04-0400 Body temperature 99.7 [degF] Dr. David Ghotra DO Work Phone: [facility] 12-25-2024 16:04-0400 Body weight 66.[address] David Ghotra DO Work Phone: [facility] 12-25-2024 16:04-0400 Diastolic blood pressure 104 mm[Hg] Dr. David Ghotra DO Work Phone: [facility] 12-25-2024 16:04-0400 Heart rate 90 /min Dr. David Ghotra DO Work Phone: [facility] 12-25-2024 16:04-0400 Respiratory rate 16 /min Dr. David Ghotra DO Work Phone: [facility] 12-25-2024 16:04-0400 SaO2% (BldA) [Mass fraction] 98 % Dr. David Ghotra DO Work Phone: [facility] 12-25-2024 16:04-0400 Systolic blood pressure 169 mm[Hg] Dr. David Ghotra DO Work Phone: [facility] 12-09-2024 14:01-0400 Body height 166.[address] David Ghotra DO Work Phone: [facility] 12-09-2024 14:01-0400 Body mass index (BMI) [Ratio] 24 kg/m2 Dr. David Ghotra DO Work Phone: [facility] 12-09-2024 14:01-0400 Body temperature 97.5 [degF] Dr. David Ghotra DO Work Phone: [facility] 12-09-2024 14:01-0400 Body weight 66.[address] David hGotra DO Work Phone: [facility] 12-09-2024 14:01-0400 Diastolic blood pressure 92 mm[Hg] Dr. David Ghotra DO Work Phone: [facility] 12-09-2024 14:01-0400 Heart rate 93 /min Dr. David Ghotra DO Work Phone: [facility] 12-09-2024 14:01-0400 Respiratory rate 18 /min Dr. David Ghotra DO Work Phone: [facility] 12-09-2024 14:01-0400 SaO2% (BldA) [Mass fraction] 98 % Dr. David Ghotra DO Work Phone: [facility] 12-09-2024 14:01-0400 Systolic blood pressure 169 mm[Hg] Dr. David Ghotra DO Work Phone: [facility] 03-01-2022 15:48-0400 Body weight 69.4 kg Faith Albany DOOR CLAMPER.CHAIRMAN PRESIDENT AND CHIEF EXECUTIVE OFFICER Work Phone: [facility] 03-01-2022 15:48-0400 Diastolic blood pressure 80 mm[Hg] Faith Albany DOOR CLAMPER.CHAIRMAN PRESIDENT AND CHIEF EXECUTIVE OFFICER Work Phone: [facility] 03-01-2022 15:48-0400 Systolic blood pressure 120 mm[Hg] Faith Starr DOOR CLAMPER.CHAIRMAN PRESIDENT AND CHIEF EXECUTIVE OFFICER Work Phone: [facility] Encounters Encounter Date Encounter Type Care Provider Facility Start: 05-30-2025 ambulatory David Ghotra Facility: [facility] Start: 05-28-2025 End: 05-28-2025 ambulatory David RiceAlec Facility:[facility] Start: 05-15-2025 End: 05-15-2025 Emergency department patient visit WAVERLY Carmen GHOTRA Facility:[facility] Start: 05-07-2025 End: 05-07-2025 Patient encounter procedure Kelsey Amalia H[employer]IZONTAL [employer] SET UP OPERATOR-C -[facility] Work Phone: Start: 05-07-2025 End: 05-07-[address] David Ghotra DO Work Phone: [facility] Start: 05-07-[address] [facility]: 04-02-2025 End: 04-02-[address] Arnaud Borja MD [facility] Work Phone: Start: 04-02-2025 End: 04-02-[address] David Ghotra DO Work Phone: [facility] Start: 04-02-[address] [facility] Start: 03-12-2025 End: 03-12-[address] Arnaud Borja MD [facility] Work Phone: Start: 03-12-2025 End: 03-12-[address] David Ghotra DO Work Phone: [facility] Start: 03-12-[address] [facility] Start: 02-20-2025 End: 02-20-2025 Patient encounter procedure Kelsey Amalia [employer]IZONTAL [employer] SET UP OPERATOR-C -[facility] Work Phone: Start: 02-20-2025 End: 02-20-[address] David Ghotra DO Work Phone: [facility] Start: 02-20-[address] [facility] Start: 02-13-2025 End: 02-13-2025 Patient encounter procedure Kelsey Amalia [employer]IZ[employer] SET UP OPERATOR-C -[facility] Work Phone: Start: 02-13-2025 End: 02-13-[address] David Ghotra DO Work Phone: [facility] Start: 02-13-[address] Pastor Borja MD -[facility] Start: 02-05-2025 Non-patient / Non-visit Dr. Angela MOSELEY -[facility] Start: 02-05-2025 End: 02-05-2025 Patient encounter procedure Kelsey Holland [employer]IZONTAL [employer] SET UP OPERATOR-C -[facility] Work Phone: Start: 02-05-2025 End: 02-05-[address] David Ghotra DO Work Phone: -[facility] Start: 02-05-2025 End: 02-05-2025 ambulatory [facility] Start: 01-23-2025 End: 01-23-[address] Arnaud Borja MD -[facility] Work Phone: Start: 01-23-2025 End: 01-23-[address] David Ghotra DO Work Phone: [facility] Work Phone: Start: 01-17-2025 End: 01-17-[address] David Ghotra DO Work Phone: -Nuclear Medicine [facility] Start: 01-17-2025 End: 01-17-[address] Arnaud Borja MD -Nuclear Medicine [facility] Work Phone: Start: 01-17-2025 End: 01-17-2025 ambulatory [facility] Start: 01-13-2025 End: 01-13-[address] David Ghotra DO Work Phone: [facility] Work Phone: Start: 01-13-2025 End: 01-13-[address] Arnaud Borja MD -Cat Scan [facility] Work Phone: Start: 01-13-2025 End: 01-13-2025 ambulatory [facility] Start: 01-08-2025 Non-patient / Non-visit Dr. Shilpa Castellon MD -[facility] Start: 01-08-2025 End: 01-08-2025 Admission to same day surgery center Dr. Feliciano Castellon [facility] Start: 01-08-2025 End: 01-08-[address] David Ghotra DO Work Phone: [facility] Work Phone: Start: 12-25-[address] Pastor Borja MD -[facility] Start: 12-25-2024 End: 12-25-[address] Arnaud Borja MD -[facility] Work Phone: Start: 12-25-2024 End: 12-25-[address] David Ghotra DO Work Phone: [facility] Work Phone: Start: 12-10-2024 End: 12-10-[address] Feliciano Castellon MD -[facility] Work Phone: Start: 12-10-2024 End: 12-10-[address] David Ghotra DO Work Phone: [facility] Work Phone: Start: 12-09-2024 End: 12-09-[address] Feliciano Castellon MD -[facility] Work Phone: Start: 12-09-2024 End: 12-10-2024 ambulatory Feliciano Castellon Facility:[facility] Start: 12-04-2024 End: 12-04-[address] David Ghotra DO Work Phone: [facility] Work Phone: Start: 12-04-2024 End: 12-04-[address] David Ghotra DO -Outpatient Breast [facility] Work Phone: Start: 12-04-2024 End: 12-04-2024 ambulatory David Ghotra Facility:[facility] Start: 11-14-2024 End: 11-14-[address] David Ghotra DO -[facility] Start: 11-14-2024 End: 11-14-2024 ambulatory David Ghotra Facility:[facility] Start: 04-20-2022 End: 04-20-2022 ambulatory DAVID GHOTRA Facility:[facility] Start: 03-01-2022 End: 03-01-2022 ambulatory FAITH CHAEVZ Facility:[facility] Start: 03-01-2022 End: 03-01-2022 Patient encounter procedure Faith Chavez DOOR CLAMPER.CHAIRMAN PRESIDENT AND CHIEF EXECUTIVE OFFICER Work Phone: OB/Gynecology Comment on above: Fibrocystic [...] the productionof interferon gamma. Chemiluminescence immunoassaymethodologyPerformed at: [place] [id number] Director: Mendez Parmar PhD, Phone: [phone] Start: 04-20-2016 Rony Chavez APRN.CNP Work Phone: Plan of Treatment Date Care Activity Detail Author Start: 05-07-2025 Ferritin [Mass/volum e] in Serum or Plasma [facility] Start: 05-07-[address] [facility] Start: 04-02-[address] [facility] Start: 03-12-[address] [facility] Start: 02-20-2025 End: 02-20-2025 [facility] Start: 02-13-[address] [facility] Start: 02-13-2025 Venous catheter care management [facility] Start: 02-10-[address] [facility] Start: 02-05-2025 US Heart [facility] Start: 01-08-2025 Patient discharge [facility] Start: 01-08-2025 Anesthesia access ce ntral venous circulation ANESTH VASCULAR ACCESS [facility] Start: 01-08-2025 Insj tunneled ctr va d w/subq port age 5 yr/> INSERT TUNNELED CV CATH [facility] Start: 01-08-2025 Fluoroscopic guidance [facility] Start: 12-25-2024 Urine test [facility] Start: 12-25-2024 Cancer Ag 15-3 [Pres ence] in Serum or Plasma [facility] Start: 12-25-2024 Cancer Ag 27-29 [Pre sence] in Serum or Plasma [facility] Start: 12-25-2024 CBC W Auto Different ial panel - Blood [facility] Start: 12-25-2024 Comprehensive metabo lic 2000 panel - Serum or Plasma [facility] Start: 12-25-2024 Follitropin and Lutr opin panel [Units/volume] - Serum or Plasma [facility] Start: 12-25-[address] [facility] Start: 12-04-2024 Digital breast tomosynthesis bilateral BREAST TOMOSYNTHESIS BI [facility] Start: 03-31-2022 Influenza vaccination INFLUENZA (#1) [facility] Start: 04-12-2021 HPV TESTING HPV TESTING [facility] Start: 04-12-2021 PAP TESTING PAP TESTING [facility] Start: 2020 Mammography MAMMOGRAM [facility] Start: 12-24-1999 Urine microalbumin profile DTAP,TDAP ,TD (1 - Tdap) [facility] Start: 1992 Adult depression scr eening assessment DEPRESSION SCREENING [facility] Start: 1986 PNEUMOCOCCAL (1 - PCV) PNEUMOCOCCAL (1 - PCV) [facility] Start: 06-25-1981 COVID-19 VACCINE (#1) COVID-19 VACCI NE (#1) [facility] Alanine aminotransfe rase [Enzymatic activity/volume] in Serum or Plasma [facility] Alanine aminotransfe rase [Enzymatic activity/volume] in Serum or Plasma [facility] Albumin [Mass/volume ] in Serum or Plasma [facility] Albumin [Mass/volume ] in Serum or Plasma [facility] Alkaline phosphatase [Enzymatic activity/volume] in Serum or Plasma [facility] Alkaline phosphatase [Enzymatic activity/volume] in Serum or Plasma [facility] Anion gap in Serum o r Plasma [facility] Anion gap in Serum o r Plasma [facility] Bilirubin, total measurement [facility] Bilirubin, total measurement [facility] BUN/Creatinine ratio [facility] BUN/Creatinine ratio [facility] Calcium [Mass/volume ] in Serum or Plasma [facility] Calcium [Mass/volume ] in Serum or Plasma [facility] Carbon dioxide, tota l [Moles/volume] in Central venous blood [facility] Carbon dioxide, tota l [Moles/volume] in Central venous blood [facility] Creatinine [Mass/vol ume] in Serum or Plasma [facility] Creatinine [Mass/vol ume] in Serum or Plasma [facility] End: 03-31-2023 Diagnostic mammography computer-aided detcj bi [facility] Radiology Routine Fibrocystic breast changes, left Breast pain 1 Occurrences starting 03/01/2022 until 03/31/2023 [facility] Work Phone: Comment on above: 1 Occurrences starti ng 03/01/2022 until 03/31/2023 Erythrocyte mean corpuscular volume determination [facility] Erythrocyte mean corpuscular volume determination [facility] Follicle stimulating hormone measurement [facility] Glucose [Mass/volume ] in Serum or Plasma [facility] Glucose [Mass/volume ] in Serum or Plasma [facility] Hematocrit [Volume Fraction] of Blood [facility] Hematocrit [Volume Fraction] of Blood [facility] Hemoglobin [Mass/vol ume] in Blood [facility] Hemoglobin [Mass/vol ume] in Blood [facility] Leukocytes [#/volume ] in Blood [facility] Leukocytes [#/volume ] in Blood [facility] Lutropin [Units/volu me] in Serum or Plasma [facility] Magnesium measurement [facility] Mean corpuscular hemoglobin concentration determination [facility] Mean corpuscular hemoglobin concentration determination [facility] Mean corpuscular hemoglobin determination [facility] Mean corpuscular hemoglobin determination [facility] Measurement of renal function [facility] Measurement of renal function [facility] Neutrophil count [facility] Neutrophil count [facility] Neutrophil percent differential count [facility] Neutrophil percent differential count [facility] Patient referral [facility] Work Phone: Platelet count [facility] Platelet mean volume determination [facility] Platelets [#/volume] in Blood [facility] Platelets [#/volume] in Blood [facility] Positron emission tomography with computed tomography [facility] Potassium measurement [facility] Potassium measurement [facility] Red blood cell count [facility] Red blood cell count [facility] Red cell distributio n width determination [facility] Red cell distributio n width determination [facility] Serum chloride measurement [facility] Serum chloride measurement [facility] Sodium measurement [facility] Sodium measurement [facility] Total protein measurement [facility] Total protein measurement [facility] Urea nitrogen [Mass/volume] in Serum or Plasma [facility] Urea nitrogen [Mass/volume] in Serum or Plasma [facility] Urinalysis complete panel - Urine [facility] End: 03-31-2023 Us breast uni real time with image limited US BREAST LTD Radiology Routine Fibrocystic breast changes, left Breast pain 1 Occurrences starting 03/01/2022 until 03/31/2023 [facility] Work Phone: Comment on above: 1 Occurrences starti ng 03/01/2022 until 03/31/2023 US Heart [facility] White blood cell count [facility] Immunizations Immunization Date Immunization Notes Care Provider Shan field 08-18-2017 influenza, injectabl e, quadrivalent, preservative free Dr. David Ghotra DO Work Phone: [facility] Payers Date Payer Category Payer Self-pay 2022 Medicaid [id number] 2019 Medicaid [employer] [id number] 2019-Present [phone] [address] [place] [address] Medicaid [id number] 2019 Medicaid [id number] Self-pay [id number] Unknown [id number] Unknown [id number] Unknown [id number]2 Unknown [id number] Unknown [id number] 2.840.1.160623.3.579.2.462 Unknown [id number] .[id number] Unknown [id number] .840.1.949060.3.579.2.462 Unknown [id number] 2.840.1.457519.3.579.2.462 Unknown [id number] .840.1.443879.3.579.2.462 Unknown [id number] .840.1.197008.3.579.2.462 Unknown [id number] .840.1.365854.3.579.2.462 Unknown [id number] .840.1.347515.3.579.2.462 Unknown [id number] Unknown [id number] .840.1.702929.3.579.2.462 Unknown [id number] .840.1.192235.3.579.2.462 Unknown [id number] 2.840.1.047211.3.579.2.462 Unknown [id number] 2.840.1.277694.3.579.2.462 Unknown [id number] 2.840.1.916256.3.579.2.462 Unknown [id number] Unknown [id number] 2.16.840.1.198320.3.579.2.462 Unknown [id number] 2.16.840.1.704675.3.579.2.462 Unknown [id number] Social History Date Type Detail Facility Start: 07-13-2015 Tobacco smoking stat us FLIS Smokes tobacco daily [facility] History of tobacco use Cigarette Smoker C [facility] Start: 07-13-2015 Cigarettes smoked current (pack per day) - Reported 0.5 [facility] Start: 07-13-2015 Tobacco use and exposure Smokeless tobacco non-user [facility] Start: 03-01-2022 Alcohol intake Current drinke r of alcohol (finding) [facility] Start: 02-09-2017 History SDOH Alcohol Comment occasionally, but not while [facility] Start: 1980 Sex Assigned At Female C [facility] Start: 02-19-2022 End: 03-01-2022 Exposure to SARS-CoV-2 (event) Not sure [facility] Work Phone: Start: 12-06-2024 End: 01-02-2025 Tobacco smoking status FLIS Current Light tobacco smoker [facility] Start: 06-18-[address] [facility] Not [facility] NEGATED: Highlighted row Not [facility] Medical Equipment Procedure Code Equipment Code Equipment Origin al Text Equipment Identifier Dates Insertion, vascular access port ([id number]) Vascular port/catheter [id number] FDA Start: 01-08-2025 Goals Date Patient Goal Desired Activity /State Mental Status Date Assessment Result Facility 01-08-2025 Cognitive function Voice/Name [facility] Work Phone: Clinical Notes 07-12-2017 to 05-15-2025 Note Date & Type Note Facility 05-15-2025 Note SARS-COV-2 (AGENT OF COVID-19) RNA: Not detected INFLUENZA A RNA: Not detected INFLUENZA B RNA: Not detected RESPIRATORY SYNCYTIAL VIRUS (RSV) RNA: Not detected [facility] Comment on above: Performed By: #### 9 [id number] #### [facility] CLIA [id number] [address] [place] [address] [place] 05-07-[address] [facility] 04-02-[address] [facility] 04-02-2025 Progress note Note Date/Time April 02, 2025 10:15am [facility] [address] 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 Arnaud Borja MD Budget Manager, [facility] Divisions of Medical Oncology & Hematology Department of Internal Medicine [place] [address] This note was generated using a voice [...] Cosigner Signature: Date (if applicable) CC: ~ [facility] Work Phone: 1(109) 572-494907-17-2025 Progress [facility] [address] [place] [address] OFFICE VISIT Date of Service: 02/13/25 0830 MR#: [id number] Acct: [id number] Name: HOWARD HALL Rep #: [id number] : 1980 From: Kelsey Morse ch HORIZONTAL BORING MILL SET UP OPERATOR HORIZONTAL BORING MILL SET UP OPERATOR-C Age/Sex: 44/F Location: [facility] Status: Signed HPI Subjective Date of Service 02/13/25 Chief Complaint Breast cancer on treatment- start [facility] History of Present Illness 44-year-old female menopausal [...] in 100% of tumor cells PROGESTERONE RECEPTOR (AZ): Positive, strong immunoreactivity in 100% of tumor [...] She denies any concerns r/t today's visit. [facility] Medical History (Updated 02/13/25 @ 09:09 by Kelsey Holland NP, HORIZONTAL BORING MILL SET UP OPERATOR-C) Encounter for antineoplastic chemotherapy and immunotherapy Encounter [...] on biopsy, with DCIS,ER positive (100% strong) AZ positive (100% strong) HER2 diego IHC overexpressed [...] for? Cycle 2 [facility]. 02/13/25 0911 h HORIZONTAL BORING MILL SET UP OPERATOR HORIZONTAL BORING MILL SET UP OPERATOR-C> Date _ Kelsey Holland HORIZONTAL BORING MILL SET UP OPERATOR HORIZONTAL BORING MILL SET UP OPERATOR-C Cosigner Signature: Date (if applicable) CC: ~ [facility]07-17-2025 Progress note Author Kelsey Holland [facility] Note Date/Time February 13, 2025 9:11 am [facility] [address] [place] [address] OFFICE VISIT Date of Service: 02/13/25 0830 MR#: [id number] Acct: [id number] Name: HOWARD HALL Rep #: [id number] : 1980 From: Kelsey Morse HORIZONTAL BORING MILL SET UP OPERATOR HORIZONTAL BORING MILL SET UP OPERATOR-C Age/Sex: 44/F Location: [facility] Status: Signed HPI Subjective Date of Service 02/13/25 Chief Complaint Breast cancer on treatment- start [facility] History of Present Illness 44-year-old female menopausal [...] in 100% of tumor cells PROGESTERONE RECEPTOR (AZ): Positive, strong immunoreactivity in 100% of tumor [...] She denies any concerns r/t today's visit. 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 David Ghotra DO Status: REG CLI Study:Bone Scan Whole Body Date of Exam: 01/17/25 Exam# [id number] Ordering Dr: Arnaud Borja MD PROCEDURE: BONE [...] evidence of metastatic breast cancer. Reading Location: [facility] CC: Dr. Arnaud Borja MD; Dr. David Ghotra DO ~ [employer] Consultant: Signed [facility]06-17-2025 Radiology Diagnostic study note [facility] [address] [place], [place] [address] CT Chest, Abd, Pel w/Contrast MR#: [id number] Acct: [id number] Name: HOWARD HALL Rep #: [id number] : 1980 F 44 From: Steve Tinoco MD PCP: Dr. David Ghotra DO Status: REG CLI Study:CT Chest, Abd, Pel w/Contrast Date of E xam: 01/13/25 Exam# [id number] Ordering Dr: Arnaud Borja MD PROCEDURE: CT [...] 3. Other findings as noted. Reading Location: [id number] CC: Dr. Arnaud Borja MD; Dr. David Ghotra DO ~ [employer] Consultant: Signed [facility] Work Phone: 1(121) [phone] Consult note [facility] Medical Records Department [address] [place] [address] Anesthesia Postop Eval I 01/08/25 1553 MR#: [id number] Acct: [id number] Name: HOWARD HALL Rep #:[id number] : 1980 44 From: Rebecca Mathews MOLD SANDER PCP: Dr. David Ghotra, DO Status:REG SDC Y Race: C Location: [place] [address] Anesthesia: Postop Eval I Current Vital Signs [...] Eval 1 completed: Yes 01/08/[address] MOLD SANDER> Date _ Rebecca Mathews MOLD SANDER Cosigner Signature: Date CC: ~ Signed [facility]06-11-2025 Consult note Author Clyde Starks [facility] Note Date/Time January 08, 2025 1:53 pm [facility] Medical Records Department [address] [place] [address] Pre-Anesthesia Evaluation 01/08/25 1352 MR#: [id number] Acct: [id number] Name: HOWARD HALL Rep #:[id number] : 1980 44 From: Clyde Starks MD PCP: Dr. David Ghotra, DO Status:REG SDC Y Race: C [facility]: [facility] ASA Classification* ASA Classification ASA Classification: 2 [...] possible left Anesthesia History Anesthesia History - medicine technologist: Anesthesia History - medicine technologist Hx Hospitalization No 01/02/25 13:24 Any Problems [...] take am of surgery PONV PONV - medicine technologist: PONV - medicine technologist Female Yes 01/02/25 13:24 HX of Motion [...] 12/25/24 16:04 Respiratory Assessment Respiratory Assessment - medicine technologist: Respiratory Tract Infection Hx - medicine technologist Hx Respiratory Tract Infection No 01/02/25 13:24 STOP Sleep Apnea STOP Sleep Apnea - medicine technologist: STOP Sleep Apnea - medicine technologist Hx Hypertension No 01/02/25 13:24 Hx Sleep [...] 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 Use History - medicine technologist: Tobacco Use History - medicine technologist Tobacco Use Smoking Status Light Smoker (<10/day) 01/02/25 13:24 Hx Tobacco Use Yes 01/02/25 13:24 Years Smoking Packs Smoked per Day 0.5 01/02/25 13:24 Smoking Cessation Date was within the last 15 years Hx Smoking Cessation Date Hx Smoking Cessation Counseling Hematologic Medial History Hematologic Hx - medicine technologist: Hematologic 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 01/08/25 7387 <Electronically signed by Clyde Starks MD > Date _ Clyde Starks MD Cosigner Signature: Date CC: ~ Signed [facility] Work Phone: 1(111) 701-445306-11-2025 Evaluation note* Diagnosis Onset Date Resolution Status [...] Anemia chronic May 07, 2 025 8:47am [facility] Work Phone: 1([phone]) 110-631206-11-2025 Radiology Diagnostic study note [facility] Services [address] [place], [place] [id number] Chest 1 View MR#: [id number] Acct: [id number] Name: HOWARD HALL Rep #: [id number] : 1980 F 44 From: Chilo Fleming MD PCP: Dr. David Ghotra DO Status: REG [facility] Study:Chest 1 View Date of Exam: 5 Exam# [id number] Ordering Dr: Feliciano Burris MD PROCEDURE: CHEST [...] vena cava and right atrium. Reading Location: [facility] CC: Dr. Feliciano Castellon MD; Dr. David Ghotra DO ~ [employer] Consultant: Signed [facility]06-11-2025 Consult note [facility] Medical Records Department [address] [place] [address] Anesthesia Postop Eval II 01/08/25 1530 MR#: [id number] Acct: [id number] Name: HOWARD HLAL Rep #:[id number] : 1980 44 From: Clyde Starks MD PCP: Dr. David Ghotra, DO Status:REG SDC Y Race: C [facility]: [facility]- Anesthesia Postop Eval I Sum Postop Eval Completion status Anesthesia document: Postop Eval 1 completed: Yes Anesthesia Postop Eval I Summary Anesthesia Postop Eval I Summary: Anesthesia Postop Eval I: Assessment Summary Airway patent Yes 01/08/25 15:08 MOLD SANDER.JDEF Spontaneous unlabored Yes 01/08/25 15:08 MOLD SANDER.JDEF respirations Mental status Awake 01/08/25 15:08 MOLD SANDER.JDEF nausea No 01/08/25 15:08 MOLD SANDER.JDEF Vomiting No 01/08/25 15:08 MOLD SANDER.JDEF Anesthesia Postop Eval I: Fluid Summary Crystalloid volume administer 300 01/08/25 15:08 MOLD SANDER.JDEF (ml) Colloids volume administered ( ml) Blood Product volume administered (ml) Total IV fluid infused 300 01/08/25 15:08 MOLD SANDER.JDEF Anesthesia Postop Eval I: Summary Notes Anesthesia Complication No 01/08/25 15:08 MOLD SANDER.JDEF Anesthesia Complication Comment: Post-operative progress note Anesthesia: Postop Eval II Evaluation Mental status: Awake Pain Level: 0 nausea: No Vomiting: No 01/08/25 1530 > Date _ Clyde [facility]arks [facility] Signature: Date CC: ~ Signed [facility]06-11-2025 Discharge summary [facility] Medical Records Department [address] [place] [address] Instructions for Home/Discharge Instructions 01/08/25 1507 MR#: [id number] Acct: [id number] Name: HOWARD HALL Rep #:[id number] : 1980 44 From: Feliciano salazar MD PCP: Dr. David Ghotra DO Status:REG [facility] Discharge Instructions Procedure Gallbladder Diet Discharge Diet: [...] to schedule 2 week follow up appointment. [phone] Test Results: Test results from this visit will be discussed in further detail at your follow- up appointment, if applicable. Discharge Plan Admission Attending Provider: Feliciano Castellon Primary Care Provider: David Ghotra Instructions Print Language: French Discharge Orders/Prescriptions Prescriptions: No Action citalopram 40 mg tablet 40 mg PO QDAY Referrals / Follow Up: David Ghotra DO [Primary Care Provider] - Disposition Disposition (needs filled in before D/C Order can be placed): Home, Self Care 01/08/25 6010Feliciano Castellon MD CC: Dr. David Ghotra DO ~ Signed [facility]06-11-2025 Consult note [facility] Medical Records Department [address] [place] [address] Anesthesia Postop Eval I 01/08/25 1506 MR#: [id number] Acct: [id number] Name: HOWARD HALL Rep #:[id number] : 1980 44 From: Rebecca Mathews CRNA PCP: Dr. David Ghotra, DO Status:REG [facility] Y Race: C Location: [place] [address] Anesthesia: Postop Eval I Current Vital Signs [...] Eval 1 completed: Yes 01/08/[address] MOLD SANDER> Date _ Rebecca Mathews MOLD SANDER Cosigner Signature: Date CC: ~ Signed [facility]06-11-2025 Procedure note [facility] Medical Records Department [address] [place] [address] Operative Report 01/08/25 1506 MR#: [id number] Acct: [id number] Name: HOWARD HALL Rep #:[id number] : 1980 44 From: Feliciano salazar MD PCP: Dr. David Ghotra, DO Status:REG [facility] Location: [address] Operative Report (Standard) Operative Information Date of Procedure: 01/08/25 Pre-Operative Diagnosis: Need for vascular access port for chemotherapy Post-Operative Diagnosis: Same Surgery/Procedure Performed: Ultrasound and fluoroscopy guided right chest port placement with utilization of right IJ administrative tech: No Type of Anesthesia: Local MAC RN [...] apply: Implanted device Implanted device details: 8 [place] PowerPort Estimated Blood Loss: 5 Specimen collected: [...] Castellon MD; Dr. David Ghotra, ~ Signed [facility]06-11-2025 History and physical note [facility] Medical Records Department [address] [place] [address] H&P Exam - Surgical 01/08/25 1420 MR#: [id number] Acct: [id number] Name: HOWARD HALL Rep #:[id number] : 1980 44 From: Feliciano salazar MD PCP: Dr. David Ghotra DO Status:REG [facility] Location: [place] [address]- HPI - General HPI Narrative HOWARD HALL, [...] willing to proceed. Feliciano Castellon MD Pager: [facility] [address] [place] [address], [address] [place] [phone] Office: 01/08/25 1422 Cosigner Signature (if applicable): CC: Dr. Feliciano Castellon MD; Dr. David Ghotra, DO~ Signed [facility]06-11-2025 Consult note [facility] Medical Records Department [address] [place], [place] [id number] Pre-Anesthesia Evaluation 01/08/25 1352 MR#: [id number] Acct: [id number] Name: HOWARD HALL Rep #:[id number] : 1980 44 From: Clyde Starks MD PCP: Dr. David Ghotra, DO Status:REG SDC Y Race: C [facility]: [facility] ASA Classification* ASA Classification ASA Classification: 2 [...] possible left Anesthesia History Anesthesia History - medicine technologist: Anesthesia History - medicine technologist Hx Hospitalization No 01/02/25 13:24 Any Problems [...] take am of surgery PONV PONV - medicine technologist: PONV - medicine technologist Female Yes 01/02/25 13:24 HX of Motion [...] 12/25/24 16:04 Respiratory Assessment Respiratory Assessment - medicine technologist: Respiratory Tract Infection Hx - medicine technologist Hx Respiratory Tract Infection No 01/02/25 13:24 STOP Sleep Apnea STOP Sleep Apnea - medicine technologist: STOP Sleep Apnea - medicine technologist Hx Hypertension No 01/02/25 13:24 Hx Sleep [...] 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 Use History - medicine technologist: Tobacco Use History - medicine technologist Tobacco Use Smoking Status Light Smoker (<10/day) 01/02/25 13:24 Hx Tobacco Use Yes 01/02/25 13:24 Years Smoking Packs Smoked per Day 0.5 01/02/25 13:24 Smoking Cessation Date was within the last 15 years Hx Smoking Cessation Date Hx Smoking Cessation Counseling Hematologic Medial History Hematologic Hx - medicine technologist: Hematologic 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 Hx of Blood Transfusion No 01/02/25 13:24 [...] 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 History - medicine technologist: /Reproductive Hx- medicine technologist Hx Now No 01/02/25 13:24 Gestational Age [...] 1353 > Date _ Clyde Starks MD [facility] Signature: Date CC: ~ Signed [facility]05-28-2025 Progress [facility] [address] [place] [address] OFFICE VISIT Date of Service: 12/25/24 1555 MR#: [id number] Acct: [id number] Name: HOWARD HALL Rep #: [id number] : 1980 From: Arnaud parr MD Age/Sex: 44/F Location: [facility] Status: Signed HPI Subjective Date of Service [...] in 100% of tumor cells PROGESTERONE RECEPTOR (AZ): Positive, strong immunoreactivity in 100% of tumor cells HER2/DIEGO IHC: Positive, (Score 3+) KI67 IHC: 40% B. Left axilla, lymph node, biopsy: * Metastatic mammary carcinoma (See note) Note: The pancytokeratin stain is positive supporting the diagnosis. 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 Arnaud Borja MD Budget Manager, [facility] Divisions of Medical Oncology & Hematology Department of Internal Medicine [place] [address] This note was generated using a voice [...] Castellon MD; Dr. David Ghotra, DO ~ [facility]05-28-2025 Progress note Author Arnaud Borja [facility] Note Date/Time December 25, 2024 4:55p m [facility] [address] [place] [address] OFFICE VISIT Date of Service: 12/25/24 1555 MR#: [id number] Acct: [id number] Name: HOWARD HALL Rep #: [id number] : 1980 From: Arnaud parr MD Age/Sex: 44/F Location: [facility] Status: Signed HPI Subjective Date of [...] in 100% of tumor cells PROGESTERONE RECEPTOR (AZ): Positive, strong immunoreactivity in 100% of tumor cells HER2/DIEGO IHC: Positive, (Score 3+) KI67 IHC: 40% B. Left axilla, lymph node, biopsy: * Metastatic mammary carcinoma (See note) Note: The pancytokeratin stain is positive supporting the diagnosis. 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 Arnaud Borja MD Budget Manager, [facility] Divisions of Medical Oncology & Hematology Department of Internal Medicine [place] [address] This note was generated using a voice [...] fallen in the past year?: No 12/25/24 3723 <Electronically signed by Arnaud hurley MD> Date _ Arnaud Borja MD Cosigner Signature: Date (if applicable) CC: Dr. Feliciano Castellon MD; Dr. David Ghotra, DO ~ [facility] Work Phone: 1(678) 140-502605-12-2025 Evaluation note* Diagnosis Onset Date Resolution Status Admit Date Left breast mass acute November 1:07pm [facility] Work Phone: 1(182) 386-498605-12-2025 Evaluation note* Diagnosis Onset Date Resolution Status Admit Date Left breast mass acute November 1:07pm Left breast mass acute November 12:05pm [facility] Work Phone: [phone] 296-140705-12-2025 Evaluation note* Diagnosis Onset Date Resolution Status Admit Date Left breast mass deleted November 1:07pm Left breast mass deleted November 12:05pm Breast cancer acute December 25, 2 025 3:54pm Regional lymph node metastas is present acute December 25, 2024 3 :54pm [facility] Work Phone: [phone] Evaluation note* Diagnosis Onset Date Resolution Status Admit Date Left breast mass deleted November 1:07pm Left breast mass deleted November 12:05pm Breast cancer acute December 25, 2 025 3:54pm Regional lymph node metastas is present acute December 25, 2024 3 :54pm Breast cancer acute January 08, 2025 1:42pm Encounter for insertion of venous access port acute January 08 1:42pm [facility] Work Phone: 1([phone]) 343-453005-12-2025 Evaluation note* Diagnosis Onset Date Resolution Status [...] is present acute January 23, 2025 11:16am [facility] Work Phone: 1([phone]) [phone] Evaluation note* Diagnosis Onset Date Resolution Status [...] 2 025 3:23pm Encounter for education acute [facility] 2024 3:23pm Regional lymph node metastas is present acute February 05, 2025 3 :23pm [facility] Work Phone: [phone] Evaluation note* Diagnosis Onset Date Resolution Status [...] 2 025 3:23pm Encounter for education acute [facility] 2024 3:23pm Regional lymph node metastas is present acute February 05, 2025 3 :23pm Breast cancer acute February 13, 2025 7:45am Encounter for antineoplastic chemotherapy and immunotherapy acute [facility] 2024 7:45am Regional lymph node metastas is present acute February 13, 2025 7:45am [employer] Work Phone: 1([phone]) 166-893105-12-2025 Evaluation note* Diagnosis Onset Date Resolution Status [...] 2 025 3:23pm Encounter for education acute [facility] 2024 3:23pm Regional lymph node metastas is present acute February 05, 2025 3 :23pm Breast cancer acute February 13, 2025 7:45am Encounter for antineoplastic chemotherapy and immunotherapy acute [facility] 2024 7:45am Regional lymph node metastas is present acute February 13, 2025 7:45am Breast cancer acute February 20, 2025 2:49pm Diarrhea due to drug acute February 20, 2025 2:49pm Dysuria acute February 20 2:49pm Regional lymph node metastas is present acute February 20, 2025 2:49pm Breast cancer acute February 8:04am Regional lymph node metastas is present acute March 12 8:04am [facility] Work Phone: 1([phone]) 666-943305-12-2025 Evaluation note* Diagnosis Onset Date Resolution Status [...] 2 025 3:23pm Encounter for education acute [facility] 2024 3:23pm Regional lymph node metastas is present acute February 05, 2025 3 :23pm Breast cancer acute February 13, 2025 7:45am Encounter for antineoplastic chemotherapy and immunotherapy acute [facility] 2024 7:45am Regional lymph node metastas is [...] 8:51am Anemia chronic April 02, 2025 8:51am [facility] Work Phone: 1(135) 119-878305-08-2025 Radiology Diagnostic study note [facility] Imaging Services [address] [place], [place] [address] Breast Limited Unilateral MR#: [id number] Acct: [id number] Name: HOWARD HALL Rep #: [id number] : 1980 F 43 From: Kamilah Sarah MD PCP: Dr. David Ghotra, Status: REG CLI Study:Breast Limited Unilateral Date of Exam: 12/04/24 Exam# [id number] Ordering Dr: David Ghotra DO EXAM: BREAST [...] to the patient. Reading Location: [facility] CC: Dr. David Ghotra, DO ~ [employer] Consultant: Signed [facility]09-21-2022 NoteHNO ID: [id number] Author: RT Heidi(R) Service: ? Author Type: Customer Relations Advisor Type: Progress Notes Filed: 04/20/2022 4:42 PM [...] Michelle Barber RT(R) April 20, 2022 4:41 [facility]08-02-2022 NoteHNO ID: [id number] Author: Faith Chavez APRN.CHAIRMAN PRESIDENT AND CHIEF EXECUTIVE OFFICER Service: ? Author Type: Nurse Practitioner Type: Progress Notes Filed: 03/01/2022 4:30 PM Note Text: BREAST LUMP HISTORY: This is a 41 year old female Presents with breast mass left side, about 10 days Tenderness slight but feeling prick sensation Change in sizeNo Any history breast mass No Caffeine use Yes 1-2 cups/day Last [id number] normal Any previous breast surgery No Any [...] 1 tablet by mouth once daily. - Icfvsvjv-Ri-Kit-Fe-FA ( VITAMIN) tab Take 1 tablet by [...] testing/treatment Medical [facility] Making [facility]: [facility] of Present illness Narrative* Faith Chavez APRN.CNP - 03/01/2022 3:45 PM EDT BREAST LUMP HISTORY: This is a 41 year old female Presents with breast mass left side, about 10 days Tenderness slight but feeling prick sensation Change in sizeNo Any history breast mass No Caffeine use Yes 1-2 cups/day Last [id number] normal Any previous breast surgery No Any [...] Take 1 tablet by mouth once daily. Gzzberad-Gu-Gdp-Fe-FA ( VITAMIN) tab Take 1 tablet by [...] Level: 3 - Low [facility] History of Past illness Narrative* Problem [...] of this encounter (statuses as of 03/01/2022) [facility] Rebecca Mathews [facility] Note Date/Time January 08, 2025 3:08 pm [facility] Medical Records Department [address] [place] [address] Anesthesia Postop Eval I 01/08/25 1506 MR#: [id number] Acct: [id number] Name: HOWARD HALL Rep #:[id number] : 1980 44 From: Rebecca Mathews CRNA PCP: Dr. David Ghotra, DO Status:REG SDC Y Race: C Location: [place] [address] Anesthesia: Postop Eval I Current Vital Signs [...] 1508 <Electronically signed by Rebecca DeForee st MOLD SANDER> Date _ Rebecca Mathews MOLD SANDER Cosigner Signature: Date CC: ~ Signed [facility] Work Phone: Consult note Author Clyde Starks [facility] Note Date/Time January 08, 2025 3:30 pm [facility] Medical Records Department [address] [place] [address] Anesthesia Postop Eval II 01/08/25 1530 MR#: [id number] Acct: [id number] Name: HOWARD HALL Rep #:[id number] : 1980 44 From: Clyde Starks MD PCP: Dr. David Ghotra, DO Status:REG SDC Y Race: C Location: [place] [address] Anesthesia Postop Eval I Sum Postop Eval Completion status Anesthesia document: Postop Eval 1 completed: Yes Anesthesia Postop Eval I Summary Anesthesia Postop Eval I Summary: Anesthesia Postop Eval I: Assessment Summary Airway patent Yes 01/08/25 15:08 MOLD [email or web address].JDEF Spontaneous unlabored Yes 01/08/25 15:08 MOLD SANDER.JDEF respirations Mental status Awake 01/08/25 15:08 MOLD SANDER.JDEF nausea No 01/08/25 15:08 MOLD SANDER.JDEF Vomiting No 01/08/25 15:08 MOLD SANDER.JDEF Anesthesia Postop Eval I: Fluid Summary Crystalloid volume administer 300 01/08/25 15:08 MOLD SANDER.JDEF (ml) Colloids volume administered ( ml) Blood Product volume administered (ml) Total IV fluid infused 300 01/08/25 15:08 MOLD SANDER.JDEF Anesthesia Postop Eval I: Summary Notes Anesthesia Complication No 01/08/25 15:08 MOLD SANDER.JDEF Anesthesia Complication Comment: Post-operative progress note Anesthesia: Postop Eval II Evaluation Mental status: Awake Pain Level: 0 nausea: No Vomiting: No 01/08/25 1530 <Electronically signed by Clyde Starks MD > Date _ Clyde Starks MD Cosigner Signature: Date CC: ~ Signed [facility] Work Phone: Consult note Author Rebecca Mathews [facility] Note Date/Time January 08, 2025 3:54 pm [facility] Medical Records Department [address] [place] [address] Anesthesia Postop Eval I 01/08/25 1553 MR#: [id number] Acct: [id number] Name: HOWARD HALL Rep #:[id number] : 1980 44 From: Rebecca Mathews MOLD SANDER PCP: Dr. David Ghotra, DO Status:REG SDC Y Race: C Location: [place] [address] Anesthesia: Postop Eval I Current Vital Signs [...] 01/08/25 1554 <Electronically signed by Rebecca rice MOLD SANDER> Date _ Rebecca Mathews MOLD SANDER Cosigner Signature: Date CC: ~ Signed [facility] Work Phone: Discharge summary Author Feliciano Castellon [facility] Note Date/Time January 08, 2025 3:10 pm [facility] Medical Records Department [address] [place] [address] Instructions for Home/Discharge Instructions 01/08/25 1507 MR#: [id number] Acct: [id number] Name: HOWARD HALL Rep #:[id number] : [...] to schedule 2 week follow up appointment. [phone] Test Results: Test results from this visit will be discussed in further detail at your follow- up appointment, if applicable. Discharge Plan Admission Attending Provider: Feliciano Castellon Primary Care Provider: David Ghotra Print Language: French Discharge Orders/Prescriptions Prescriptions: No Action citalopram 40 mg tablet 40 mg PO QDAY Referrals / Follow Up: David Ghotra DO [Primary Care Provider] - Disposition Disposition (needs filled in before D/C Order can be placed): Home, Self Care 01/08/25 1510<Electronically signed by Feliciano Castellon MD>Feliciano Castellon MD CC: Dr. David Ghotra, ~ Signed [facility] Work Phone: Evaluation note* Diagnosis Fibrocystic breast changes, left- Primary Breast pain Mastodynia [facility] Feliciano Castellon [facility] Note Date/Time January 08, 2025 2:22 pm [facility] Medical Records Department [address] [place] [address] H&P Exam - Surgical 01/08/25 1420 MR#: [id number] Acct: [id number] Name: HOWARD HALL Rep #:[id number] : 1980 44 From: Feliciano salazar MD PCP: Dr. David Ghotra DO Status:REG [facility] Location: [place] [address] HPI - General HPI Narrative HOWARD HALL, [...] willing to proceed. Feliciano Castellon MD Pager: [facility] [address] [place] [address], [address] [place] [address] Office: 01/08/25 1422 <Electronically signed by Feliciano aCstellon MD> Cosigner Signature (if applicable): CC: Dr. Feliciano Castellon MD; Dr. David Ghotra DO~ Signed [facility] Work Phone: Progress note Author Kelsey Holland [facility] Note Date/Time May 07, 2025 9: 59am [facility] [address] [place] [address] OFFICE VISIT Date of Service: 05/07/25 0904 MR#: [id number] Acct: [id number] Name: HOWARD HALL Rep #: [id number] : 1980 From: Kelsey Morse HORIZONTAL BORING MILL SET UP OPERATOR HORIZONTAL BORING MILL SET UP OPERATOR-C Age/Sex: 44/F Location: [facility] Status: Signed HPI Subjective Date of [...] in 100% of tumor cells PROGESTERONE RECEPTOR ([place]): Positive, strong immunoreactivity in 100% of tumor [...] intake estimated at 16 oz per day. 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) [place] positive (100% strong) HER2 diego IHC overexpressed [...] Cosigner Signature: Date (if applicable) CC: ~ Hazen Odoo (formerly [employer]) Work Phone: Reason for referral (narrative)* Diagnostic Procedure Only (Routine) - Authorized Specialty Diagnoses / Procedures Referred By Julisa tinoco Referred To Contact [facility] Diagnoses Fibrocystic breast changes, left Breast pain Procedures YARELY DIAGNOSTIC BILAT DIAGNOSTIC MAMMOGRAPHY COMPUTER-AIDED DETCJ BI Faith Chavez APRN.CNP [address] [place] [address] [facility] [address] [place] [id number] Referral ID Status Reason Start Date Expiration Date Visits Requested Visits Authorized [id number] Authorized Auto-Generat ed Referral 03/01/2022 03/31/2023 1 1 * Diagnostic Procedure Only (Routine) - Pending Review Specialty Diagnoses / Procedures Referred By Julisa tinoco Referred To Contact [facility] Diagnoses Fibrocystic breast changes, left Breast pain Procedures US BREAST LTD LT US BREAST UNI REAL TIME WITH IMAGE LIMITED Faith Chavez APRN.CNP [address] [place] [address] [facility] [address] [place] [address] Referral ID Status Reason Start Date Expiration Date Visits Requested Visits Authorized [id number] Pending Review Auto-Generat ed Referral 03/01/2022 03/31/2023 1 1 [facility]No reason for referral [facility] Work Phone: Summary Purpose Family History [...] Do you have a Healthcare Power of Tipple Boss? No January 02, 2025 1:24pm Advance Directive Response Recorded Date/ Time Do you have a Healthcare Power of Tipple Boss? No January 02, 2025 1:24pm Living Will No February 14, 2025 3:45pm Do you have a Healthcare Power of Tipple Boss? No February 14, 2025 3:45pm Advance Directives No February 14 3:45pm Advance Directive Response Recorded Date/ Time Do you have a Healthcare Power of Tipple Boss? No January 02, 2025 1:24pm Living Will No March 12 9:20am Do you have a Healthcare Power of Tipple Boss? No March 12, 2025 9:20am Advance Directives No March 12, 2025 9:20am Advance Directive Response Recorded Date/ Time Do you have a Healthcare Power of Tipple Boss? No January 02, 2025 1:24pm Living Will No April 02 10:20am Do you have a Healthcare Power of Tipple Boss? No April 02, 2025 10:20am Advance Directives No March 10:20am Advance Directive Response Recorded Date/ Time Do you have a Healthcare Power of Tipple Boss? No January 02, 2025 1:24pm Living Will No May 07 8:58am Do you have a Healthcare Power of Tipple Boss? No May 07, 2025 8:58am Advance Directives [...] Regional lymph node metastasis present J [facility] 2024 11:16am Breast cancer February 05, 2025 3:23p m Encounter for education February 05, 2025 3 :23pm Regional lymph node metastasis present J [facility] 2024 3:23pm Chief Complaint Admit Date LUMP [...] Regional lymph node metastasis present J formerly [facility] 2024 11:16am Breast cancer February 05, 2025 3:23p m Encounter for education February 05, 2025 3 :23pm Regional lymph node metastasis present J [facility] 2024 3:23pm Breast cancer February 13, 2025 7:45 am Encounter for antineoplastic chemotherap y and immunotherapy February 13, 2025 7:45am Regional lymph node metastasis present J [facility] 2024 7:45am Chief Complaint Admit Date LUMP [...] Regional lymph node metastasis present J formerly [facility] 2024 11:16am Breast cancer February 05, 2025 3:23p m Encounter for education February 05, 2025 3 :23pm Regional lymph node metastasis present J [facility] 2024 3:23pm Breast cancer February 13, 2025 7:45 am Encounter for antineoplastic chemotherap y and immunotherapy February 13, 2025 7:45am Regional lymph node metastasis present J [facility] 2024 7:45am Breast cancer February 20, 2025 2:49 pm Diarrhea due to drug February 20, 2025 2:4 9pm Dysuria February 20, 2025 2:49 pm Regional lymph node metastasis present J [facility] 2024 2:49pm Breast cancer March 12, 2025 [...] Regional lymph node metastasis present J [facility] 2024 11:16am Breast cancer February 05, 2025 3:23p m Encounter for education February 05, 2025 3 :23pm Regional lymph node metastasis present J [facility] 2024 3:23pm Breast cancer February 13, 2025 7:45 am Encounter for antineoplastic chemotherapy and immunotherapy February 13, 2025 7:45am Regional lymph node metastasis present J [facility] 2024 7:45am Breast cancer February 20, 2025 2:49 pm Diarrhea due to drug February 20, 2025 2:4 9pm Dysuria February 20, 2025 2:49 pm Regional lymph node metastasis present J [facility] 2024 2:49pm Breast cancer March 12, 2025 [...] Regional lymph node metastasis present J [facility] 2024 11:16am Breast cancer February 05, 2025 3:23p m Encounter for education February 05, 2025 3 :23pm Regional lymph node metastasis present J [facility] 2024 3:23pm Breast cancer February 13, 2025 7:45 am Encounter for antineoplastic chemotherapy and immunotherapy February 13, 2025 7:45am Regional lymph node metastasis present J [facility] 2024 7:45am Breast cancer February 20, 2025 [...] or prosecute any alcohol or drug abuse patient.[facility] Reason for Visit (unrecogniz ed section and content) Reason Comments left breast lump Care Teams (unrecognized sec tion and content) T[employer]ot Knitter Relationship Specialty Start Date End Date David [...] End: February 05, 2025 Kelsey Holland NP, HORIZONTAL BORING MILL SET UP OPERATOR-C Attending Provider Active Start: February 05, 2025 [...] 2025 End: February 05, 2025 Kelsey Holland HORIZONTAL BORING MILL SET UP OPERATOR, HORIZONTAL BORING MILL SET UP OPERATOR-C Attending Provider Active Start: February 05, 2025 [...] 2025 End: February 13, 2025 Kelsey Holland HORIZONTAL BORING MILL SET UP OPERATOR, HORIZONTAL BORING MILL SET UP OPERATOR-C Attending Provider Active Start: February 13, 2025 End: February 13, 2025 Team Status: Inactive Member Role/Relationship Status Dates Dr. David Ghotra DO Primary Care Provider Active Start: February 13, 2025 End: February 13, 2025 Dr. David Ghotra DO Referring Provider Active Start: February 13, 2025 End: February 13, 2025 Kelsey Holland HORIZONTAL BORING MILL SET UP OPERATOR, HORIZONTAL BORING MILL SET UP OPERATOR-C Attending Provider Active Start: February 13, 2025 [...] 2025 End: February 20, 2025 Kelsey Holland HORIZONTAL BORING MILL SET UP OPERATOR, HORIZONTAL BORING MILL SET UP OPERATOR-C Attending Provider Active Start: February 20, 2025 End: February 20, 2025 Team Status: Inactive Member Role/Relationship Status Dates Dr. David Ghotra DO Primary Care Provider Active Start: February 20, 2025 End: February 20, 2025 Dr. David Ghotra DO Referring Provider Active Start: February 20, 2025 End: February 20, 2025 Kelsey Amalia HORIZONTAL BORING MILL SET UP OPERATOR, HORIZONTAL BORING MILL SET UP OPERATOR-C Attending Provider Active Start: February 20, 2025 [...] Active Member Role/Relationship Status Dates Dr. David Gohtra DO Primary Care Provider Active Start: January [...] 2025 End: February 05, 2025 Kelseycarmen Holland HORIZONTAL BORING MILL SET UP OPERATOR, HORIZONTAL BORING MILL SET UP OPERATOR-C Attending Provider Active Start: February 05, 2025 [...] 2025 End: February 13, 2025 Kelsey Amalia HORIZONTAL BORING MILL SET UP OPERATOR, HORIZONTAL BORING MILL SET UP OPERATOR-C Attending Provider Active Start: February 13, 2025 End: February 13, 2025 Team Status: Inactive Member Role/Relationship Status Dates Dr. David Ghotra DO Primary Care Provider Active Start: February 20, 2025 End: February 20, 2025 Dr. David Ghotra DO Referring Provider Active Start: February 20, 2025 End: February 20, 2025 Kelsey Amalia HORIZONTAL BORING MILL SET UP OPERATOR, HORIZONTAL BORING MILL SET UP OPERATOR-C Attending Provider Active Start: February 20, 2025 [...] End: February 05, 2025 Kelsey Holland NP, HORIZONTAL BORING MILL SET UP OPERATOR-C Attending physician Active Start: February 05, 2025 [...] 2025 End: February 13, 2025 Kelsey Holland HORIZONTAL BORING MILL SET UP OPERATOR, HORIZONTAL BORING MILL SET UP OPERATOR-C Attending physician Active Start: February 13, 2025 End: February 13, 2025 Team Status: Inactive Member Role/Relationship Status Dates Dr. David Ghotra DO Primary care physician Active Start: February 20, 2025 End: February 20, 2025 Dr. David Ghotra DO Referring Provider Active Start: February 20, 2025 End: February 20, 2025 Kelsey Holland HORIZONTAL BORING MILL SET UP OPERATOR, HORIZONTAL BORING MILL SET UP OPERATOR-C Attending physician Active Start: February 20, 2025 [...] 2025 End: May 07, 2025 Kelsey Holland HORIZONTAL BORING MILL SET UP OPERATOR, HORIZONTAL BORING MILL SET UP OPERATOR-C Attending physician Active Start: May 07, 2025 End: May 07, 2025 INFORMATION SOURCE (unrecogn ized section and content) DATE CREATED AUTHOR 05/01/2022 [facility] DATE CREATED AUTHOR AUTHOR'S ORGANIZ ATION 05/22/2025 [facility] DATE CREATED AUTHOR AUTHOR'S ORGANIZ ATION 06/07/2025 [facility] Goals (unrecognized section and content) [...] BE BASED ON THE PRIMARY CLINICAL RECORDS. [employer] provides no warranty or guarantee of the accuracy or completeness of information in this document.
[2025-06-28] MEDS: 0.9% Normal Saline (250mL Bag) 250 ML 15 ML IV (07:01)
[2025-06-28] MEDS: Vancomycin HCl 1,000 MG in 0.9% Normal Saline (250mL Bag) 250 ML 250 MG IV (07:01)
[2025-06-28] MEDS: 0.9% Saline Lock 10 ML Syringe IV (07:02)
--- NOTE | 2025-06-28 07:15 | PCM.PN.HOSP ---
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 on neoadjuvant systemic chemoimmunotherapy presented with fever Objective Data Objective Data Vital Signs: Vital Signs Temp Pulse Resp BP Pulse Ox O2 Del Method 99.9 F H 89 18 143/89 H 98 Room Air 06/28/25 06:32 06/28/25 06:32 06/28/25 06:32 06/28/25 06:32 06/28/25 06:32 06/28/25 06:32 Oxygen Delivery Method Room Air Weight: 66.4 kg Body Mass Index (BMI) 24.3 Intake & Output: Intake and Output for Last 24 Hours 06/26/25 06/27/25 06/28/25 23:59 23:59 23:59 Intake Total 1100 / 1100 Balance 1100 / 1100 Lab / Micro Data 06/28/25 00:45 06/28/25 00:45 Labs: Laboratory Results - last 24 hr 06/28/25 00:45: WBC 1.4 L*, RBC 2.33 L, Hgb 7.4 L, Hct 21.5 L, MCV 92.3, MCH 31.8, MCHC 34.4, RDW Std Deviation 54.5 H, RDW Coeff of Matteo 16.2 H, Plt Count 107 L, MPV 10.2, Immature Gran % (Auto) 0.000, Neut % (Auto) 2.2 L, Lymph % (Auto) 87.6 H, [place] % (Auto) 10.2 H, Eos % (Auto) 0.0, Baso % (Auto) 0.0, Absolute Neuts (auto) 0.0 L, Absolute Lymphs (auto) 1.20, Nucleated RBC % 0, Differential Comment SCANNED, Diff Path Review May foll, Atypical Lymphocytes RARE, PT 13.5, INR 1.0, APTT 31.4, Sodium 135, Potassium 3.6, Chloride 101, Carbon Dioxide 22.5, Anion Gap 12, BUN 9, Creatinine 0.71, Estim Creat Clear Calc 98.78, Est GFR (MDRD) Non-Af 107, BUN/Creatinine Ratio 12.3, Glucose 111 H, Lactic Acid 1.0, Calcium 8.6, Total Bilirubin 0.20, AST 29, ALT 30, Alkaline Phosphatase 76, Total Protein 6.4, Albumin 3.7, Globulin 2.7, Albumin/Globulin Ratio 1.4 06/28/25 01:20: Urine Color Straw, Urine Clarity Clear, Urine pH 7.0, Ur Specific [place] 1.005, Urine Protein Negative, Urine Glucose (UA) Normal, Urine Ketones Negative, Urine Occult Blood 10 H, Urine Nitrite Negative, Urine Bilirubin Negative, Urine Urobilinogen Normal, Ur Leukocyte Esterase Negative, Urine RBC 0-5 SEEN, Urine WBC 0-5 SEEN, Ur Squamous Epith Cells 0-5 SEEN, Urine Bacteria 1+, Urine Mucus 0 SEEN Micro: Microbiology 06/28/25 00:45 Mucosa - Nasopharyngeal SARS-CoV-2, Influenza & RSV (PCR) - Final ABG Data ABG results: ABG 06/28/25 01:35 Specimen Type JESUSITA Sample Site Not entered VBG pH 7.37 VBG pO2 22 L VBG HCO3 27 H VBG Total CO2 28 VBG O2 Sat (Calc) 35 L VBG Base Excess 1 POC Mix VBG pCO2 Pt Tmp 46.6 O2 Delivery Device Room Air Radiography Diagnostic Testing: Radiology Impression Chest X-Ray 06/28/25 00:50 IMPRESSION: Interval appearance of bilateral basilar atelectatic pulmonary changes. Reading Location: [place] [address] Physical Exam Narrative GENERAL: cooperative HEENT: Atraumatic; normocephalic EYES; Anicteric, Normal Conjunctiva NECK; supple, normal thyroid, RESPIRATORY: Diminished to auscultation CARDIOVASCULAR: Regular S1 S2, GI: soft, normoactive bowel sounds, : No Renal angle tenderness; EXTREMITIES: No edema, no clubbing, MUSCULOSKELETAL: no muscle wasting NEURO: Awake; no lateralizing signs. 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 Febrile neutropenia – Patient admitted to regular nursing floor cultures sent patient placed on broad-spectrum antibiotic therapy 2. 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 Patient is followed by [facility] oncology 3. Pancytopenia – Chemo-induced monitoring with daily CBC with differential 4. Erythema involving both hands – Etiology not clear ? Chemo induced versus infectious etiology (less likely given the symmetrical presentation) will continue with monitoring 5. DVT prophylaxis – Avoided chemoprophylaxis given patient low platelet count Time spent in the patient's overall evaluation,decision-making process, review of diagnostic data, adjustment of management, discussion with other providers, nursing nursing and ancillary staff involved in patient's care documentation, 30 Minutes Charges/Coding Visit Charges Inpatient E&M: 83934 PROLNG IP/OBS E/M EA 15 MIN ([id number], [id number] ([id number] x 2))
--- NOTE | 2025-06-28 14:08 | PCM.RX.CS ---
Consult Antibiotic Management Pharmacy has been consulted to manage selected antibiotic: Vancomycin Type of Intervention Type of Consult: New start Suspected Infection Suspected Infection: Other (NEUTROPENIC FEVER) Labs Labs: Sodium 135 mmol/L (133-145) 06/28/25 00:45 Potassium 3.6 mmol/L (3.3-5.1) 06/28/25 00:45 Chloride 101 mmol/L (98-108) 06/28/25 00:45 Carbon Dioxide 22.5 mmol/L (21.0-32.0) 06/28/25 00:45 Anion Gap 12 (5-15) 06/28/25 00:45 BUN 9 mg/dL (4-19) 06/28/25 00:45 Creatinine 0.71 mg/dL (0.70-1.20) 06/28/25 00:45 Est GFR (MDRD) Non-Af 107 (>60) 06/28/25 00:45 BUN/Creatinine Ratio 12.3 RATIO (10-20) 06/28/25 00:45 Glucose 111 mg/dL (70-99) H 06/28/25 00:45 Microbiology Microbiology: Microbiology 06/28/25 00:45 Mucosa - Nasopharyngeal SARS-CoV-2, Influenza & RSV (PCR) - Final Dosing Weight Weight used for dosin.2 kg Estimated Creatinine Clearance Estimated Creatinine Clearance: 99ML/MIN Goal Trough Goal Trough: 15-20 mcg/mL Pharmacy Plan for Drug Dosing Pharmacy Plan for Drug Dosing: NEW START IV VANCOMYCIN Consulting Physician: DR. COOPER Indication: NEUTROPENIC FEVER Goal Trough: 15-20 SrCr: 0.71 CrCl: 99ML/MIN Comments: PT RECEIVED A 1000MG DOSE ON 06/28/25 AT 0701 Vancomycin Dose: BASED ON PATIENTS WEIGHT AND RENAL FUNCTION, RECOMMEND AN INITIAL DOSE OF 1250MG Q12H STARTING 06/28/25 AT 1900 Pending Level: 06/30/25 AT 0630 Pharmacy Service will continue to monitor and adjust dosing as required. Follow-Up Labs Follow-Up Labs: Trough: Vancomycin (06/30/25 AT 0630)
--- NOTE | 2025-06-28 16:44 | CASEMGMT ---
Dx: neutropenic fever LACE: 2 6-Clicks: 24 Medical record reviewed and patient evaluated for identification of discharge planning needs. Based on this review, at this time criteria are not present to indicate a need for discharge planning. Will remain available to assist with discharge planning needs as identified or requested.
[2025-06-28] MEDS: Lactated Ringers 1,000 ML 125 ML IV (21:39)
[2025-06-28] MEDS: Vancomycin HCl 1,250 MG in 0.9% Normal Saline (250mL Bag) 250 ML 167 MG IV (23:04)
[2025-06-29] VITALS (7 sets, daily range): BP systolic 108–130; BP diastolic 65–86; PULSE 78–93; RESP 16; TEMP 36.9; O2SAT 96–97
[2025-06-29] MEDS: BMX LIQUID 180 ML 15 ML PO ×2 (02:23→18:34)
[2025-06-29] MEDS: Senna/Docusate Sodium 1 Tablet 2 TABLET PO ×2 (04:34→20:56)
[2025-06-29 05:08] LABS: Hematocrit 21.9 % (37-47); Hemoglobin 7.3 g/dL (12.0-15.0); Immature Granulocytes Count 0.000 X10^3/uL (0.0-0.0); Mean Corp Hgb Conc 33.3 g/dL (32-36); Mean Corpuscular Volume 92.0 fL (81-99); Mean Platelet Vol. 10.8 fl (6.2-12.0); NRBC Flagged by Analyzer 0 % (0-5); POSITIVE COUNT YES; POSITIVE DIFFERENTIAL YES; POSITIVE MORPHOLOGY YES; Platelet Count 80 K/mm3 (150-450); RBC Distribution Width CV 16.3 % (11.6-14.6); RBC Distribution Width SD 54.8 fl (35.1-43.9); Red Blood Count 2.38 M/mm3 (4.2-5.4); White Blood Count 2.1 K/mm3 (4.4-11.0)
[2025-06-29 05:29] LABS: Differential Indicated SCAN CRITERIA MET
[2025-06-29 05:31] LABS: Anion Gap 9 (5-15); BUN 8 mg/dL (4-19); BUN/Creat Ratio 11.5 RATIO (10-20); Calcium,Total 8.4 mg/dL (7.6-11.0); Carbon Dioxide 24.1 mmol/L (21.0-32.0); Chloride 103 mmol/L (98-108); Estimated Creatinine Clearance 92.19 ml/min (50-250); Glucose 101 mg/dL (70-99); Magnesium 1.5 mg/dL (1.5-2.2); Potassium 3.7 mmol/L (3.3-5.1)
[2025-06-29 05:58] LABS: Differential Comment SCANNED
[2025-06-29] MEDS: Cefepime HCl 2 GM in 0.9% Normal Saline (100mL MB+) 100 ML IV ×3 (06:34→22:42)
--- NOTE | 2025-06-29 07:30 | PN.HOSP_ITS ---
Reason for Visit Chief Complaint: Fever and sore throat Subjective Subjective Patient blood culture still pending. Has remained afebrile for the past 24 hours. WBC count up to 2.1 hemoglobin down to 7.3 and platelet count down to 80K Objective Data Objective Data Vital Signs: Vital Signs Temp Pulse Resp BP Pulse Ox O2 Del Method 98.4 F 81 16 119/74 97 Room Air 06/29/25 04:24 06/29/25 02:00 06/29/25 02:00 06/29/25 02:00 06/29/25 02:00 06/29/25 02:00 Oxygen Delivery Method Room Air Weight: 66.4 kg Body Mass Index (BMI) 24.3 Intake & Output: Intake and Output for Last 24 Hours 06/27/25 06/28/25 06/29/25 23:59 23:59 23:59 Intake Total 1820 / 1820 275 / 275 Balance 1820 / 1820 275 / 275 Lab / Micro Data 06/29/25 04:19 06/29/25 04:19 Labs: Laboratory Results - last 24 hr 06/29/25 04:19: WBC 2.1 L, RBC 2.38 L, Hgb 7.3 L, Hct 21.9 L, MCV 92.0, MCH 30.7, MCHC 33.3, RDW Std Deviation 54.8 H, RDW Coeff of Matteo 16.3 H, Plt Count 80 L, MPV 10.8, Immature Gran % (Auto) 0.000, Neut % (Auto) 4.3 L, Lymph % (Auto) 73.3 H, [place] % (Auto) 21.9 H, Eos % (Auto) 0.0, Baso % (Auto) 0.5, Absolute Neuts (auto) 0.1 L, Absolute Lymphs (auto) 1.54, Nucleated RBC % 0, Differential Comment SCANNED, Sodium 136, Potassium 3.7, Chloride 103, Carbon Dioxide 24.1, Anion Gap 9, BUN 8, Creatinine 0.73, Estim Creat Clear Calc 92.19, Est GFR (MDRD) Non-Af 104, BUN/Creatinine Ratio 11.5, Glucose 101 H, Calcium 8.4, Phosphorus 4.0, Magnesium 1.5 Micro: Microbiology 06/28/25 00:45 Mucosa - Nasopharyngeal SARS-CoV-2, Influenza & RSV (PCR) - Final Physical Exam Narrative GENERAL: cooperative HEENT: Atraumatic; normocephalic EYES; Anicteric, Normal Conjunctiva NECK; supple, normal thyroid, RESPIRATORY: Diminished to auscultation CARDIOVASCULAR: Regular S1 S2, GI: soft, normoactive bowel sounds, : No Renal angle tenderness; EXTREMITIES: No edema, no clubbing, MUSCULOSKELETAL: no muscle wasting NEURO: Awake; no lateralizing signs. 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 Febrile neutropenia – Patient admitted to regular nursing floor cultures sent patient placed on broad-spectrum antibiotic therapy – 06/29/2025; patient remains on broad-spectrum antibiotic therapy cultures so far negative to date. 2. 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 Patient is followed by [facility] oncology 3. Pancytopenia – Chemo-induced monitoring with daily CBC with differential – 06/29/2025;P WBC count up to 2.1 hemoglobin down to 7.3 and platelet count down to 80K 4. Erythema involving both hands – Etiology not clear ? Chemo induced versus infectious etiology (less likely given the symmetrical presentation) will continue with monitoring 5. DVT prophylaxis – Avoided chemoprophylaxis given patient low platelet count Time spent in the patient's overall evaluation,decision-making process, review of diagnostic data, adjustment of management, discussion with other providers, nursing nursing and ancillary staff involved in patient's care documentation, 36 minutes Charges/Coding Visit Charges Inpatient E&M: 23414 Subs Hosp L2
[2025-06-29] MEDS: Vancomycin HCl 1,250 MG in 0.9% Normal Saline (250mL Bag) 250 ML 167 MG IV ×2 (07:40→18:26)
[2025-06-30 03:00] VITALS: BP 120/81; PULSE 75; RESP 16; TEMP 36.8; O2SAT 96
[2025-06-30] MEDS: Cefepime HCl 2 GM in 0.9% Normal Saline (100mL MB+) 100 ML IV (05:27)
[2025-06-30 07:23] LABS: Hematocrit 21.2 % (37-47); Hemoglobin 7.0 g/dL (12.0-15.0); Immature Granulocytes Count 0.000 X10^3/uL (0.0-0.0); Mean Corp Hgb Conc 33.0 g/dL (32-36); Mean Corpuscular Volume 93.4 fL (81-99); Mean Platelet Vol. 10.6 fl (6.2-12.0); NRBC Flagged by Analyzer 0 % (0-5); POSITIVE COUNT YES; POSITIVE DIFFERENTIAL YES; Platelet Count 56 K/mm3 (150-450); RBC Distribution Width CV 15.9 % (11.6-14.6); RBC Distribution Width SD 54.7 fl (35.1-43.9); Red Blood Count 2.27 M/mm3 (4.2-5.4); White Blood Count 2.1 K/mm3 (4.4-11.0)
[2025-06-30 07:27] LABS: Differential Indicated SCAN CRITERIA MET
--- NOTE | 2025-06-30 07:27 | PCM.PN.HOSP ---
Reason for Visit Chief Complaint: Fever and sore throat Subjective Subjective Patient WBC count up to 2.1, hemoglobin 7.0 platelet 56K. Did discuss with patient about transfusing her with 1 unit PRBC and subsequently assess for discharge Objective Data Objective Data Vital Signs: Vital Signs Temp Pulse Resp BP Pulse Ox O2 Del Method 98.2 F 75 16 120/81 H 96 Room Air 06/30/25 03:00 06/30/25 03:00 06/30/25 03:00 06/30/25 03:00 06/30/25 03:00 06/29/25 22:00 Oxygen Delivery Method Room Air Weight: 66.4 kg Body Mass Index (BMI) 24.3 Intake & Output: Intake and Output for Last 24 Hours 06/28/25 06/29/25 06/30/25 23:59 23:59 23:59 Intake Total 1820 / 1820 2125 / 2125 100 / 100 Balance 1820 / 1820 2124 / 2124 100 / 100 Lab / Micro Data 06/30/25 06:30 06/30/25 06:30 Micro: Microbiology 06/28/25 00:45 Mucosa - Nasopharyngeal SARS-CoV-2, Influenza & RSV (PCR) - Final Physical Exam Narrative GENERAL: cooperative HEENT: Atraumatic; normocephalic EYES; Anicteric, Normal Conjunctiva NECK; supple, normal thyroid, RESPIRATORY: Diminished to auscultation CARDIOVASCULAR: Regular S1 S2, GI: soft, normoactive bowel sounds, : No Renal angle tenderness; EXTREMITIES: No edema, no clubbing, MUSCULOSKELETAL: no muscle wasting NEURO: Awake; no lateralizing signs. 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 Febrile neutropenia – Patient admitted to regular nursing floor cultures sent patient placed on broad-spectrum antibiotic therapy – 06/29/2025; patient remains on broad-spectrum antibiotic therapy cultures so far negative to date. – 06/30/2025; cultures have remained negative today plan is to discharge patient home on on Levaquin and Augmentin 2. 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 Patient is followed by [facility] 3. Pancytopenia – Chemo-induced monitoring with daily CBC with differential – 06/29/2025;P WBC count up to 2.1 hemoglobin down to 7.3 and platelet count down to 80K – 06/30/2025;Patient WBC count up to 2.1, hemoglobin 7.0 platelet 56K. Did discuss with patient about transfusing her with 1 unit PRBC and subsequently assess for discharge 4. Erythema involving both hands – Etiology not clear ? Chemo induced versus infectious etiology (less likely given the symmetrical presentation) will continue with monitoring 5. DVT prophylaxis – Avoided chemoprophylaxis given patient low platelet count Time spent in the patient's overall evaluation,decision-making process, review of diagnostic data, adjustment of management, discussion with other providers, nursing nursing and ancillary staff involved in patient's care documentation, 35 minutes Charges/Coding Visit Charges Inpatient E&M: 66526 Subs Hosp L2
[2025-06-30 08:00] VITALS: BP 123/77; PULSE 75; RESP 16; TEMP 36.8; O2SAT 100
[2025-06-30 08:10] LABS: Vancomycin, Trough Level 12.4 ug/mL (5.0-15.0)
[2025-06-30 08:14] LABS: Anion Gap 9 (5-15); BUN 9 mg/dL (4-19); BUN/Creat Ratio 13.3 RATIO (10-20); Calcium,Total 8.9 mg/dL (7.6-11.0); Carbon Dioxide 26.5 mmol/L (21.0-32.0); Chloride 104 mmol/L (98-108); Estimated Creatinine Clearance 105.15 ml/min (50-250); Glucose 92 mg/dL (70-99); Potassium 3.8 mmol/L (3.3-5.1)
--- NOTE | 2025-06-30 08:30 | PCM.DC.SUM ---
Providers Date of Admission: 06/28/25 Date of Discharge: 06/30/25 Primary Care Physician: Dr. Austin Michael DO Reason For Visit: NEUTROPENIC FEVER Diagnosis Discharge Diagnosis (1) Neutropenia with fever: Status: Acute Code(s): D70.9 - Neutropenia, unspecified; R50.81 - Fever presenting with conditions classified elsewhere (2) Pancytopenia due to antineoplastic chemotherapy: Status: Acute Code(s): D61.810 - Antineoplastic chemotherapy induced pancytopenia; T45.1X5A - Adverse effect of antineoplastic and immunosuppressive drugs, initial encounter (3) Hand erythema: Status: Acute Code(s): L53.9 - Erythematous condition, unspecified (4) Breast cancer: Status: Acute Code(s): C50.919 - Malignant neoplasm of unspecified site of unspecified female breast Qualifiers: Breast location: overlapping sites of breast Estrogen receptor status: positive Patient sex: female Laterality: left Qualified Code(s): C50.812 - Malignant neoplasm of overlapping sites of left female breast; Z17.0 - Estrogen receptor positive status [ER+] Plan Patient is a 44-year-old lady with history of 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 Febrile neutropenia – Patient admitted to regular nursing floor cultures sent patient placed on broad-spectrum antibiotic therapy – 06/29/2025; patient remains on broad-spectrum antibiotic therapy cultures so far negative to date. – 06/30/2025; cultures have remained negative today plan is to discharge patient home on on Levaquin and Augmentin 2. 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 Patient is followed by [facility] 3. Pancytopenia – Chemo-induced monitoring with daily CBC with differential – 06/29/2025;P WBC count up to 2.1 hemoglobin down to 7.3 and platelet count down to 80K – 06/30/2025;Patient WBC count up to 2.1, hemoglobin 7.0 platelet 56K. Did discuss with patient about transfusing her with 1 unit PRBC and subsequently assess for discharge 4. Erythema involving both hands – Etiology not clear ? Chemo induced versus infectious etiology (less likely given the symmetrical presentation) will continue with monitoring 5. DVT prophylaxis – Avoided chemoprophylaxis given patient low platelet count Time spent in the patient's overall evaluation,decision-making process, review of diagnostic data, adjustment of management, discussion with other providers, nursing nursing and ancillary staff involved in patient's care documentation, 35 minutes Medications at Discharge Home Medications citalopram 40 mg tablet 40 mg PO QDAY 12/09/24 amoxicillin 875 mg-potassium clavulanate 125 mg tablet 1 tab PO BID #14 tabs 06/30/25 levofloxacin 750 mg tablet 750 mg PO DAILY #7 tabs 06/30/25 Physical Exam Narrative GENERAL: cooperative HEENT: Atraumatic; normocephalic EYES; Anicteric, Normal Conjunctiva NECK; supple, normal thyroid, RESPIRATORY: Diminished to auscultation CARDIOVASCULAR: Regular S1 S2, GI: soft, normoactive bowel sounds, : No Renal angle tenderness; EXTREMITIES: No edema, no clubbing, MUSCULOSKELETAL: no muscle wasting NEURO: Awake; no lateralizing signs. SKIN: Erythema involving both hands PSYCH; Flat affect Weight / BMI Weight Weight: 66.4 kg Body Mass Index (BMI) 24.3 ABG / Lab / Microbiology Data 06/30/25 06:30 06/30/25 06:30 Laboratory: Laboratory Results - last 24 hr 06/30/25 06:30: WBC 2.1 L, RBC 2.27 L, Hgb 7.0 L, Hct 21.2 L, MCV 93.4, MCH 30.8, MCHC 33.0, RDW Std Deviation 54.7 H, RDW Coeff of Matteo 15.9 H, Plt Count 56 L, MPV 10.6, Immature Gran % (Auto) 0.000, Neut % (Auto) 12.2 L, Lymph % (Auto) 75.7 H, [place] % (Auto) 12.1 H, Eos % (Auto) 0.0, Baso % (Auto) 0.0, Absolute Neuts (auto) 0.3 L, Absolute Lymphs (auto) 1.62, Nucleated RBC % 0, Sodium 139, Potassium 3.8, Chloride 104, Carbon Dioxide 26.5, Anion Gap 9, BUN 9, Creatinine 0.64 L, Estim Creat Clear Calc 105.15, Est GFR (MDRD) Non-Af 112, BUN/Creatinine Ratio 13.3, Glucose 92, Calcium 8.9, Vancomycin Trough 12.4 Microbiology: Microbiology 06/28/25 02:30 Blood Culture (Wb) - Anticubital Left Blood Culture - Preliminary No growth in 48 hours. 06/28/25 00:45 Blood Culture (Wb) - Anticubital Left Blood Culture - Preliminary No growth in 48 hours. 06/28/25 00:45 Mucosa - Nasopharyngeal SARS-CoV-2, Influenza & RSV (PCR) - Final D/C Instructions Discharge Activity: Return to Normal Activity Call your doctor if you observe: Fever of 101 or Higher, Shortness of breath, Fainting spells and Chest pain DC O2, CPAP, BIPAP Needs Home O2 Discharge instructions: No Meaningful Use Info Meaningful Use Meaningful Use Diagnoses (Choose all that apply): None applicable Discharge Plan Admission Admit Date/Time: 06/28/25 05:04 Attending Provider: Timbo Laboy Primary Care Provider: Austin Michael Consulting Providers: Russell Loredo Discharge Orders/Prescriptions Prescriptions: New amoxicillin-pot clavulanate 875-125 mg tablet 1 tab PO BID Qty: 14 0RF levofloxacin 750 mg tablet 750 mg PO DAILY Qty: 7 0RF No Action citalopram 40 mg tablet 40 mg PO QDAY Referrals / Follow Up: Arnaud Borja MD [Med Staff - Active Staff, Oncology] - Within 1 Week Referral Note: For repeat CBC with diff Austin Michael DO [Primary Care Provider, Family Practice] - Within 2 Weeks Disposition Disposition (needs filled in before D/C Order can be placed): Home, Self Care Charges/Coding Visit Charges Inpatient E&M: 79812 Disch Hosp >30min
[2025-06-30] MEDS: Vancomycin HCl 1,750 MG in 0.9% Normal Saline (500mL Bag) 500 ML 250 MG IV (09:22)
[2025-06-30] MEDS: 0.9% Saline Lock 10 ML Syringe IV (09:22)
--- NOTE | 2025-06-30 09:34 | PHA.DC.MC.R ---
Pharmacy [facility] Counseling Pharmacy Service has performed discharge medication reconciliation and counseling for this patient. The patient's discharge medication list was reviewed for discrepancies and discrepancies were resolved. The patient was counseled on the following discharge medications and changes in medications for homegoing were reviewed. The Reason for Use, instructions for use, and potential side effects were reviewed for all new medications. The patient's questions regarding all of their medications were answered. 1. Augmentin 875 mg PO BID x 7 days 2. Levofloxacin 750 mg PO daily X 7 days The patient was able to verbally demonstrate an understanding of their discharge medications. Medications at Discharge Home Medications citalopram 40 mg tablet 40 mg PO QDAY 12/09/24 amoxicillin 875 mg-potassium clavulanate 125 mg tablet 1 tab PO BID #14 tabs 06/30/25 levofloxacin 750 mg tablet 750 mg PO DAILY #7 tabs 06/30/25
== END 2025-06-30 12:22 | disposition home or self-care (01) | DRG 660 ==
LOC: ED 00:42 → MS3 05:46
PROVIDERS: Admitting Provider Internal Medicine; Emergency Provider Specialist/Technologist Athletic Trainer; PCP Family Medicine; Visit Provider Internal Medicine
DX: D70.1 Agranulocytosis secondary to cancer chemotherapy (principal); D61.810 Antineoplastic chemotherapy induced pancytopenia; C77.3 Secondary and unspecified malignant neoplasm of axilla and upper limb lymph nodes; C50.812 Malignant neoplasm of overlapping sites of left female breast; F32.A Depression, unspecified; L53.9 Erythematous condition, unspecified; F17.200 Nicotine dependence, unspecified, uncomplicated; T45.1X5A Adverse effect of antineoplastic and immunosuppressive drugs, initial encounter; R50.81 Fever presenting with conditions classified elsewhere; Z17.0 Estrogen receptor positive status [ER+]; Z79.899 Other long term (current) drug therapy
CPT/HCPCS: 36415; 71045; 80048; 80053; 80202; 81001; 82803; 83605; 83735; 84100; 85025; 85610; 85730; 87040; 87077; 87086; 87088; 87186; 87631; 93005; 99285; A4216